=== PATIENT | male | born 1950 | race Caucasian/White ===

== ENCOUNTER → 2017-04-14 08:09 | Outpatient (CLI) | payer OTHER, SELFPAY ==
[2017-04-14 11:45] LABS: Anion Gap 8 (5-15); BUN 17 mg/dL (7-18); BUN/Creat Ratio 23.9 RATIO (10-20); Calcium,Total 8.8 mg/dL (8.5-10.1); Chloride 100 mmol/L (98-107); Creatinine, Serum 0.71 mg/dL (0.70-1.30); EST Glomerular Filtration Rate 118 mL/min (>60); Est Glom Filt Rate - Afr Amer 143 mL/min (>60); Glucose 97 mg/dL (70-110); Potassium 3.2 mmol/L (3.5-5.1); Sodium Level 137 mmol/L (136-145)
== END ==
PROVIDERS: Family Provider Family Medicine; PCP Family Medicine; Visit Provider Family Medicine
DX: I10 Essential (primary) hypertension (principal); Z12.5 Encounter for screening for malignant neoplasm of prostate
CPT/HCPCS: 36415; 80048; 84153; G0103

== ENCOUNTER → 2018-04-13 09:49 | Outpatient (CLI) | payer MEDICARE, SELFPAY ==
[2018-04-13 12:19] LABS: Anion Gap 9 (5-15); BUN 24 mg/dL (7-18); BUN/Creat Ratio 28.8 RATIO (10-20); Calcium,Total 9.1 mg/dL (8.5-10.1); Chloride 102 mmol/L (98-107); Creatinine, Serum 0.83 mg/dL (0.70-1.30); EST Glomerular Filtration Rate 98 mL/min (>60); Est Glom Filt Rate - Afr Amer 118 mL/min (>60); Glucose 97 mg/dL (74-106); Potassium 3.3 mmol/L (3.5-5.1); Sodium Level 138 mmol/L (136-145)
== END ==
PROVIDERS: Family Provider Family Medicine; PCP Family Medicine; Visit Provider Family Medicine
DX: I10 Essential (primary) hypertension (principal)
CPT/HCPCS: 36415; 80048

== ENCOUNTER 2018-12-14 08:33 | Emergency (ER) | payer MEDICARE, SELFPAY ==
[2018-12-14 08:35] VITALS: BP 167/101; PULSE 101; RESP 16; TEMP 36.3; O2SAT 95; BMI 32.5
--- NOTE | 2018-12-14 08:45 | CT_ITS ---
STUDY: CT ABDOMEN AND PELVIS WITHOUT CONTRAST REASON FOR EXAM: Male, 68 years old. Left flank and left lower quadrant pain. History of kidney stones. RADIATION DOSAGE (If Supplied By Facility): CTDIvol = ( 14.51 ) mGy, DLP = ( 779.68 ) mGycm TECHNIQUE: Transaxial images were obtained from the dome of the diaphragm to the symphysis pubis without oral contrast, and without intravenous contrast. Sagittal and coronal images were reconstructed. Individualized dose optimization techniques were used for this CT. COMPARISON: None. FINDINGS: Minimal increased markings at the left lung base suggestive of scarring. The visualized portions of the heart are within normal limits. There is decreased attenuation of the liver consistent with steatosis. Normal gallbladder and extrahepatic biliary system. There are multiple benign calcified granulomata of the spleen. Normal pancreas. Normal bilateral adrenal glands. Bilateral perinephric stranding worse on the left side. There is a 3 mm nonobstructive catheter is in the posterior mid aspect of the right kidney. This also demonstrated 3 mm calculus in the mid lower and lower pole calyces of the right kidney. This also evidence of a 2.2 cm x 1.9 cm cyst in the lower pole of the right kidney. Mild degree of left hydronephrosis and proximal left hydroureter due to a 4.5 mm calculus in the midportion of the left ureter. Normal visualized stomach. Normal small intestine. There are multiple colonic diverticula consistent with diverticulosis. The appendix is visualized and appears normal. Normal abdominal aorta. Normal inferior vena cava. Normal retroperitoneum. Normal urinary bladder. There are prostatic calcifications. Prostatic enlargement causing indentation at the bladder base. Normal abdominal wall. There are degenerative changes of the visualized lumbar spine. CT/Abdomen/Pelvis without Cont IMPRESSION: Bilateral perinephric stranding more prominent on the left side. Nonobstructive bilateral intrarenal calculi. Small bilateral renal cysts. 4.5 mm calculus in the midportion of the left ureter causing left hydronephrosis and left hydroureter. Electronically Signed: Shahzad Pavon, at 9:37 EDT , Service support ,
--- NOTE | 2018-12-14 08:48 | ED.DCSUM_ITS ---
- ER Visit Summary Date of Service: 12/14/18 Chief Complaint: Abdominal pain History of Present Illness: The patient is a 68 M who states that 3:00 this morning he was awoken and had pain left side of his abdomen into the left flank. He states it asked like a kidney stone which she has had before and that it pain comes and goes. It makes him nauseous. He states he did not urinate as much as normal today. He states that he has had diverticulitis in the past but this feels different but he does not know if this could be that. He denies any fevers. Physical Examination: Afebrile vital signs are stable Gen: Well-nourished well-developed Head: Normocephalic atraumatic Eyes: Perrl EOMI ENT: TMs clear no rhinorrhea moist mucous membranes Neck: Supple no lymphadenopathy no JVD nontender CVS: Regular rate rhythm no murmurs normal S1-S2 Respiratory: No distress clear to auscultation bilaterally chest nontender Abdomen: Soft normal tenderness to palpation left middle quadrant nondistended normal bowel sounds no masses Back: Nontender Extremity: Nontender no edema Skin: Normal color no rash Neuro: alert orientated ?3 CN II-XII intact normal strength sensation Psych: Normal affect normal mood Emergency Department Course and Treatment: White count is 11. Creatinine 1.22. Urinalysis shows a small amount of blood. CT of the abdomen pelvis without contrast demonstrates a 5 mm stone proximal to mid ureter. There is associated hydronephroureter. Patient received Toradol for pain he feels better. I spoke with Dr. Mayes who has seen the patient in the past. He is able to see the patient in the office tomorrow. I will write for Zofran and [place]. Patient is comfortable with our plan. Impression: 1. Left ureterolithiasis with colic This note was generated with [employer] dictation software. It may contain incorrect words, spelling, and punctuation that were not noted in review of the chart prior to signing ED Disposition - Plan for ED Patient: Disposition: Home or Assisted Living Instructions: KIDNEY STONE w/ Colic Prescriptions: Hydrocodone Bitart/Apap 5-325 [[place] 5MG-325MG] 1 tab PO Q6H PRN PRN 3 Days #12 tab PRN Reason: Pain Prescription Printed Ondansetron [Zofran Odt] 4 mg PO Q6H PRN PRN #10 tab PRN Reason: Nausea Prescription Printed Referrals: Dwayne Mayes MD [STAFF PHYSICIAN] - As soon as possible
[2018-12-14] MEDS: Ketorolac 30 MG/ML Syringe IV (09:07)
[2018-12-14 09:14] LABS: Absolute Neutrophil Count 10.5 X10^3/uL (2.0-7.7); Basophil# 0.07 X10^3/uL; Basophil% 0.5 % (0-1); Eosinophil# 0.17 X10^3/uL; Eosinophils% 1.3 % (0-5); Hematocrit 43.2 % (40-54); Lymphocyte % 7.8 % (19-41); Mean Corp Hgb Conc 34.7 g/dL (32-36); Mean Corpuscular Hgb 31.9 pg (27.0-32.0); Mean Corpuscular Volume 91.9 fL (80-94); Monocyte# 1.05 X10^3/uL; Monocyte% 8.2 % (0-10); NRBC Flagged by Analyzer 0 % (0-5); Neutrophil # 10.47 X10^3/uL (2.7-7.7); Neutrophil % 81.7 % (47-70); Platelet Count 251 K/mm3 (150-450); RBC Distribution Width CV 12.3 % (11.6-14.6); RBC Distribution Width SD 41.4 fl (35.1-43.9); White Blood Count 12.8 K/mm3 (4.4-11.0)
[2018-12-14 09:21] LABS: Anion Gap 9 (5-15); BUN 21 mg/dL (7-18); BUN/Creat Ratio 17.2 RATIO (10-20); Chloride 104 mmol/L (98-107); Creatinine, Serum 1.22 mg/dL (0.70-1.30); EST Glomerular Filtration Rate 63 mL/min (>60); Est Glom Filt Rate - Afr Amer 76 mL/min (>60); Estimated Creatinine Clearance 54.93 ml/min; Glucose 106 mg/dL (74-106); Sodium Level 140 mmol/L (136-145)
[2018-12-14 09:46] LABS: Bacteria 0 SEEN /hpf (None Seen); Mucous, Urine 0 SEEN /hpf (<or=2+); White Blood Cells 0 SEEN /hpf (0-5)
[2018-12-14 09:51] LABS: Color, Urine Yellow (Yellow); Glucose, Dipstick Normal (Normal); Ketone-Dipstick Negative (Negative); Leukocyte Esterase-Dipstick Negative /ul (Negative); Nitrite-Dipstick Negative (Negative); Occult Blood-Urine 250 /ul (Negative); Protein-Dipstick Negative (Negative); Specific Gravity, Urine 1.015 (1.002-1.030); Urine Bilirubin Dipstick Negative (Negative); Urine Clarity Sl. Cloudy (Clear); Urine Urobilinogen Normal (Normal)
[2018-12-14 10:01] LABS: Red Blood Cells-Urine 5-10 SEEN /hpf (0-5); Squamous Epithelial Cells - UA 0-5 SEEN /hpf (0-5)
[2018-12-14 10:53] VITALS: BP 135/74; PULSE 87; RESP 16; O2SAT 100
== END 2018-12-14 10:54 | disposition home or self-care (01) ==
PROVIDERS: Emergency Provider Emergency Medicine; Family Provider Family Medicine; PCP Family Medicine
DX: N20.1 Calculus of ureter (principal); Z87.442 Personal history of urinary calculi; J45.909 Unspecified asthma, uncomplicated; I10 Essential (primary) hypertension
CPT/HCPCS: 74176; 80048; 81001; 85025; 96374; 99283; A4216

== ENCOUNTER → 2018-12-15 | Outpatient (CLI) | payer MEDICARE, SELFPAY ==
[2018-12-14 08:35] VITALS: BMI 32.5
--- NOTE | 2018-12-15 08:43 | RAD_ITS ---
STUDY: X-RAY - ABDOMEN/PELVIS REASON FOR EXAM: Male, 68 years old. LEFT SIDE PAIN, KIDNEY STONES; H/O SAME TECHNIQUE: Two AP supine views of the abdomen and pelvis. COMPARISON: CT abdomen and pelvis December 14, 2018 FINDINGS: The lung bases are not visualized. There is an unremarkable bowel gas pattern. There is no demonstrated free abdominal air. The visualized liver, spleen and kidneys are grossly normal in. Punctate nephrolithiasis appears present on the right. The known punctate stones on the left are not well seen on this exam. The previously seen mid left ureteral stone I believe has progressed distally with a small stone identified on this exam at the level of the ureterovesical junction measuring approximately 4 mm. Normal soft tissue structures. There are mild diffuse degenerative changes of the visualized lumbar spine. RAD/Abdomen Single View IMPRESSION: It appears that a previously seen mid left ureteral stone has transited more inferiorly and is visualized in the region of the left ureterovesical junction. Nephrolithiasis persists. Electronically Signed: Brandi Hughes MD at 9:48 EDT , Service support ,
== END | disposition home or self-care (01) ==
LOC: RAD 08:37
PROVIDERS: Family Provider Family Medicine; PCP Family Medicine; Referring Provider Urology; Visit Provider Urology
DX: N20.0 Calculus of kidney (principal)
CPT/HCPCS: 74018

== ENCOUNTER 2018-12-23 09:28 | Day surgery (SDC) | payer MEDICARE, SELFPAY ==
--- NOTE | 2018-12-23 09:40 | RAD_ITS ---
STUDY: X-RAY - ABDOMEN/PELVIS REASON FOR EXAM: Male, 68 years old. Follow-up left renal stone TECHNIQUE: KUB COMPARISON: None. FINDINGS: There is an unremarkable bowel gas pattern. There is no demonstrated free abdominal air. Nonobstructing calyceal calculi are again seen in the right kidney. Along the distal left ureter no ureteral calculi are currently identified. There are phleboliths again seen in both sides of the pelvis. Normal soft tissue structures. Normal visualized osseous structures. RAD/Abdomen Single View IMPRESSION: 1. The previously noted left ureteral calculus is no longer identified. 2. Nonobstructive right nephrocalcinosis Electronically Signed: Davis Shi, at 12:36 EDT Tel , Service support ,
[2018-12-23 10:07] VITALS: BP 148/77; PULSE 70; RESP 15; TEMP 36.5; O2SAT 99; BMI 30.3
[2018-12-23] MEDS: Lactated Ringers 1,000 ML 100 ML IV (10:18)
== END 2018-12-23 11:29 | disposition home or self-care (01) ==
LOC: SDC 09:36 → AC 09:37
PROVIDERS: Family Provider Family Medicine; PCP Family Medicine; Referring Provider Urology; Visit Provider Urology
PROC: (CPT 50590; principal; 2018-12-23 10:15)
DX: N20.0 Calculus of kidney (principal)
CPT/HCPCS: 74018; J7120; J2405

== ENCOUNTER → 2019-04-12 10:50 | Outpatient (CLI) | payer MEDICARE, SELFPAY ==
[2019-04-12 12:45] LABS: AST(SGOT) 24 U/L (15-37); Alanine Aminotransfer ALT/SGPT 27 U/L (16-61); Albumin, Serum 3.9 g/dL (3.2-5.0); Alkaline Phosphatase 62 U/L (45-117); Anion Gap 6 (5-15); BUN 22 mg/dL (7-18); BUN/Creat Ratio 27.2 RATIO (10-20); Calcium,Total 9.3 mg/dL (8.5-10.1); Chloride 104 mmol/L (98-107); Cholesterol 224 mg/dL (200); Creatinine, Serum 0.81 mg/dL (0.70-1.30); EST Glomerular Filtration Rate 101 mL/min (>60); Est Glom Filt Rate - Afr Amer 122 mL/min (>60); Globulin 3.9 g/dL (2.2-4.2); Glucose 98 mg/dL (74-106); High Density Lipoprotein 52 mg/dL; Potassium 3.2 mmol/L (3.5-5.1); Protein, Total 7.8 g/dL (6.4-8.2); Sodium Level 138 mmol/L (136-145); Triglycerides 127 mg/dL; Very Low Density Lipoprotein 25 mg/dL (5-40)
== END ==
LOC: MFPLAB 10:51
PROVIDERS: PCP Family Medicine; Referring Provider Family Medicine; Visit Provider Family Medicine
DX: I10 Essential (primary) hypertension (principal); E78.5 Hyperlipidemia, unspecified; Z12.5 Encounter for screening for malignant neoplasm of prostate
CPT/HCPCS: 36415; 80053; 80061; 84153; G0103

== ENCOUNTER → 2019-10-12 09:08 | Outpatient (CLI) | payer MEDICARE, SELFPAY ==
[2019-10-12 10:10] LABS: AST(SGOT) 24 U/L (15-37); Alanine Aminotransfer ALT/SGPT 21 U/L (16-61); Albumin, Serum 3.8 g/dL (3.2-5.0); Alkaline Phosphatase 68 U/L (45-117); Anion Gap 4 (5-15); BUN 21 mg/dL (7-18); BUN/Creat Ratio 26.9 RATIO (10-20); Calcium,Total 8.8 mg/dL (8.5-10.1); Chloride 105 mmol/L (98-107); Cholesterol 142 mg/dL (200); Creatinine, Serum 0.78 mg/dL (0.70-1.30); EST Glomerular Filtration Rate 105 mL/min (>60); Est Glom Filt Rate - Afr Amer 127 mL/min (>60); Globulin 3.8 g/dL (2.2-4.2); Glucose 99 mg/dL (74-106); High Density Lipoprotein 58 mg/dL; Potassium 3.2 mmol/L (3.5-5.1); Protein, Total 7.6 g/dL (6.4-8.2); Sodium Level 137 mmol/L (136-145); Triglycerides 83 mg/dL; Very Low Density Lipoprotein 17 mg/dL (5-40)
== END ==
PROVIDERS: PCP Family Medicine; Referring Provider Family Medicine; Visit Provider Family Medicine
DX: E78.5 Hyperlipidemia, unspecified (principal)
CPT/HCPCS: 36415; 80053; 80061

== ENCOUNTER → 2020-05-09 08:50 | Outpatient (CLI) | payer MEDICARE, SELFPAY ==
[2020-05-09 10:36] LABS: ALB/GLOB Ratio 1.1 RATIO (0.9-2.4); AST(SGOT) 29 U/L (15-37); Alanine Aminotransfer ALT/SGPT 25 U/L (16-61); Albumin, Serum 3.8 g/dL (3.2-5.0); Alkaline Phosphatase 85 U/L (45-117); Anion Gap 7 (5-15); BUN 24 mg/dL (7-18); BUN/Creat Ratio 30.4 RATIO (10-20); Calcium,Total 8.9 mg/dL (8.5-10.1); Chloride 104 mmol/L (98-107); Cholesterol 155 mg/dL (200); Creatinine, Serum 0.79 mg/dL (0.70-1.30); EST Glomerular Filtration Rate 103 mL/min (>60); Est Glom Filt Rate - Afr Amer 125 mL/min (>60); Globulin 3.6 g/dL (2.2-4.2); Glucose 100 mg/dL (74-106); High Density Lipoprotein 67 mg/dL; Potassium 3.3 mmol/L (3.5-5.1); Protein, Total 7.4 g/dL (6.4-8.2); Sodium Level 140 mmol/L (136-145); Triglycerides 62 mg/dL; Very Low Density Lipoprotein 12 mg/dL (5-40)
== END ==
PROVIDERS: PCP Family Medicine; Referring Provider Family Medicine; Visit Provider Family Medicine
DX: I10 Essential (primary) hypertension (principal)
CPT/HCPCS: 36415; 80053; 80061

== ENCOUNTER 2021-01-21 12:59 | Emergency (ER) | payer MEDICARE, SELFPAY ==
[2021-01-21 12:59] VITALS: BP 195/89; PULSE 95; RESP 16; TEMP 37.2; O2SAT 98; BMI 30.4
--- NOTE | 2021-01-21 13:11 | EDS_ITS ---
HPI History of Present Illness Chief Complaint: Complaint Informant: patient Onset/Context/Timing Onset: Days Current Severity: Moderate Maximum Severity: Moderate Narrative Narrative: Patient presents with urinary frequency and dysuria. Patient reports for the past 2 days he feels he has to urinate every 2 minutes. He goes just a small amount. He denies fever or chills. He states he has some mild right low back pain but attributes that to back problems. [facility] Medical History Hypertension Kidney stone Home Medications atorvastatin 40 mg PO DAILY 01/21/21 [History Last Taken Unknown] chlorthalidone 25 mg PO DAILY 01/21/21 [History Last Taken Unknown] ciprofloxacin HCl [Cipro] 500 mg PO BID #14 tab 01/21/21 [Rx Last Taken Unknown] Allergy/AdvReac Type Severity Reaction Status Date / Time Penicillins [PCN] Allergy Unknown Verified 01/21/21 13:03 Social History Smoking Status: Never smoker ROS ROS ED Constitutional Constitutional ED: Denies chills or fever(s) Eyes Eyes: Denies change in vision ENT ENT ED: Denies sore throat Cardiovascular Cardiovascular: Denies chest pain Respiratory/Chest Respiratory/Chest: Denies cough or dyspnea Gastrointestinal Gastrointestinal: Denies abdominal pain, diarrhea, nausea or vomiting Genitourinary Genitourinary ED: Reports dysuria and urinary frequency Musculoskeletal Musculoskeletal: Reports back pain Integumentary Denies rash Neurologic Neurologic: Denies headache(s) or weakness Allergic/Immunologic Allergic/Immunologic ED: Denies urticaria EXAM Physical Exam Const Vital Signs: 01/21/21 12:59 Temperature 99 F Temperature Source Temporal Pulse Rate 95 Respiratory Rate 16 Blood Pressure 195/89 H Blood Pressure Mean 124 Pulse Ox 98 Oxygen Delivery Method Room Air Positive well nourished and well developed General Appearance ED: well developed HEENT Reports normocephalic and head/scalp atraumatic Eyes PERRL and EOMs intact bilaterally Neck supple Chest Wall inspection of chest normal and palpation of chest normal Resp normal respiratory effort and clear to auscultation bilaterally Cardio regular rate and regular rhythm GI normal to inspection, nondistended, normoactive bowel sounds and non-tender Palpation: soft Back/Spine no CVA tenderness Extremity normal to inspection Neuro oriented x3 and no sensory deficits noted Sensorium / Orientation: alert Motor Exam: strength 5/5 throughout Psych mental status grossly normal Skin no rashes or lesions noted MDM MDM MDM Narrative Medical decision making narrative: Urinalysis sent. Lab Data Labs: Laboratory Results - last 24 hr 01/21/21 13:20 Urine Color Yellow Urine Clarity Cloudy Urine pH 6.0 Ur Specific [place] 1.015 Urine Protein 100 H Urine Glucose (UA) 50 H Urine Ketones Negative Urine Occult Blood 250 H Urine Nitrite Positive H Urine Bilirubin Negative Urine Urobilinogen 1 H Ur Leukocyte Esterase 500 H Urine RBC 5-10 SEEN Urine WBC >100 SEEN Ur Squamous Epith Cells 0 SEEN Urine Bacteria 2+ Urine Mucus 0 SEEN Treatment and Re-Evaluation Comments:: I did asked nursing staff to get a post void bladder scan to ensure patient was not retaining. Only 20 cc or so was noted on bladder scan. Urine does return with obvious infection. Patient be treated with a course of Cipro, first dose given here. Urine culture has been sent. Discharge Plan Triage Chief Complaint: Complaint ED Provider: Georgina Hatch Dx/Rx/DC Orders Clinical Impression: UTI (urinary tract infection) Instructions: ED Bladder Infection, Male (Adult) Prescriptions: New ciprofloxacin HCl [Cipro] 500 mg tablet 500 mg PO BID Qty: 14 RF: 0 No Action atorvastatin 40 mg tablet 40 mg PO DAILY RF: 0 chlorthalidone 25 mg tablet 25 mg PO DAILY RF: 0 Primary Care Provider: Davis Armstrong Referrals: Davis Armstrong MD [Primary Care Provider] - 1 Week if not improving Disposition Disposition: Home, Self Care
[2021-01-21 13:28] LABS: Mucous, Urine 0 SEEN /hpf (<or=2+); Squamous Epithelial Cells - UA 0 SEEN /hpf (0-5)
[2021-01-21 13:34] LABS: Color, Urine Yellow (Yellow); Glucose, Dipstick 50 mg/dl (Normal); Ketone-Dipstick Negative (Negative); Leukocyte Esterase-Dipstick 500 /ul (Negative); Nitrite-Dipstick Positive (Negative); Occult Blood-Urine 250 /ul (Negative); Protein-Dipstick 100 mg/dl (Negative); Specific Gravity, Urine 1.015 (1.002-1.030); Urine Bilirubin Dipstick Negative (Negative); Urine Clarity Cloudy (Clear); Urine Urobilinogen 1 mg/dl (Normal)
[2021-01-21 13:44] LABS: Bacteria 2+ /hpf (None Seen); Red Blood Cells-Urine 5-10 SEEN /hpf (0-5); White Blood Cells >100 SEEN /hpf (0-5)
[2021-01-21] MEDS: Ciprofloxacin 500 MG Tablet PO (13:57)
== END 2021-01-21 13:59 | disposition home or self-care (01) ==
PROVIDERS: Emergency Provider Emergency Medicine; PCP Family Medicine
DX: N39.0 Urinary tract infection, site not specified (principal); I10 Essential (primary) hypertension; Z79.899 Other long term (current) drug therapy
CPT/HCPCS: 81001; 87077; 87086; 87088; 87186; 99283

== ENCOUNTER 2021-05-09 09:02 | Outpatient (CLI) | payer MEDICARE, SELFPAY ==
[2021-05-09 09:09] LABS: Bacteria 0 SEEN /hpf (None Seen); Mucous, Urine 0 SEEN /hpf (<or=2+); Red Blood Cells-Urine 0 SEEN /hpf (0-5); Squamous Epithelial Cells - UA 0 SEEN /hpf (0-5)
[2021-05-09 10:21] LABS: Color, Urine Yellow (Yellow); Glucose, Dipstick Normal (Normal); Ketone-Dipstick Negative (Negative); Leukocyte Esterase-Dipstick Negative /ul (Negative); Nitrite-Dipstick Negative (Negative); Occult Blood-Urine Negative /ul (Negative); Protein-Dipstick Negative (Negative); Specific Gravity, Urine 1.015 (1.002-1.030); Urine Bilirubin Dipstick Negative (Negative); Urine Clarity Clear (Clear); Urine Urobilinogen Normal (Normal)
[2021-05-09 10:22] LABS: Absolute Lymphocyte Count 0.91 X10^3/uL (0.83-4.51); Absolute Neutrophil Count 3.6 X10^3/uL (2.0-7.7); Basophil# 0.05 X10^3/uL; Eosinophil# 0.13 X10^3/uL; Eosinophils% 2.5 % (0-5); Hematocrit 43.2 % (40-54); Hemoglobin 15.2 g/dL (13.0-16.5); Lymphocyte # 0.91 X10^3/ul (0.83-4.51); Lymphocyte % 17.5 % (19-41); Mean Corp Hgb Conc 35.2 g/dL (32-36); Mean Corpuscular Hgb 32.1 pg (27.0-32.0); Mean Corpuscular Volume 91.3 fL (80-94); Mean Platelet Vol. 10.6 fl (6.2-12.0); Monocyte# 0.46 X10^3/uL; Monocyte% 8.8 % (0-10); NRBC Flagged by Analyzer 0 % (0-5); Neutrophil # 3.63 X10^3/uL (2.7-7.7); Neutrophil % 69.8 % (47-70); Platelet Count 275 K/mm3 (150-450); RBC Distribution Width CV 12.6 % (11.6-14.6); RBC Distribution Width SD 42.5 fl (35.1-43.9); Red Blood Count 4.73 M/mm3 (4.6-6.2); White Blood Count 5.2 K/mm3 (4.4-11.0)
[2021-05-09 10:33] LABS: White Blood Cells 0-5 SEEN /hpf (0-5)
[2021-05-09 11:03] LABS: AST(SGOT) 29 U/L (15-37); Alanine Aminotransfer ALT/SGPT 25 U/L (16-61); Albumin, Serum 3.8 g/dL (3.2-5.0); Alkaline Phosphatase 92 U/L (45-117); Anion Gap 6 (5-15); BUN 21 mg/dL (7-18); BUN/Creat Ratio 32.6 RATIO (10-20); CPK Total, Creatine Kinase 274 U/L (39-308); Calcium,Total 8.8 mg/dL (8.5-10.1); Chloride 103 mmol/L (98-107); Cholesterol 142 mg/dL (200); Creatinine, Serum 0.64 mg/dL (0.70-1.30); EST Glomerular Filtration Rate 130 mL/min (>60); Est Glom Filt Rate - Afr Amer 157 mL/min (>60); Ferritin 356 ng/mL (26-388); Globulin 3.8 g/dL (2.2-4.2); Glucose 105 mg/dL (74-106); High Density Lipoprotein 57 mg/dL; Magnesium 2.1 mg/dL (1.6-2.6); Potassium 3.1 mmol/L (3.5-5.1); Protein, Total 7.6 g/dL (6.4-8.2); Sodium Level 136 mmol/L (136-145); Thyroid Stim Hormone (TSH) 2.39 uIU/mL (0.358-3.74); Triglycerides 72 mg/dL; Very Low Density Lipoprotein 14 mg/dL (5-40)
[2021-05-10 16:07] LABS: Hemoglobin A1c 6.1 % (3.8-5.6)
== END 2021-05-09 23:59 | disposition home or self-care (01) ==
LOC: MFPLAB 09:05
PROVIDERS: PCP Family Medicine; Referring Provider Family Medicine; Visit Provider Family Medicine
DX: I10 Essential (primary) hypertension (principal); R73.09 Other abnormal glucose; E78.5 Hyperlipidemia, unspecified; E87.6 Hypokalemia; R25.2 Cramp and spasm
CPT/HCPCS: 36415; 80053; 80061; 81001; 82550; 82728; 83036; 83735; 84443; 85025

== ENCOUNTER 2021-05-14 09:40 | Outpatient (CLI) | payer MEDICARE, SELFPAY ==
[2021-05-14 12:36] LABS: Anion Gap 10 (5-15); BUN 22 mg/dL (7-18); BUN/Creat Ratio 28.5 RATIO (10-20); Calcium,Total 9.5 mg/dL (8.5-10.1); Chloride 101 mmol/L (98-107); Creatinine, Serum 0.77 mg/dL (0.70-1.30); EST Glomerular Filtration Rate 106 mL/min (>60); Est Glom Filt Rate - Afr Amer 128 mL/min (>60); Glucose 108 mg/dL (74-106); Potassium 3.4 mmol/L (3.5-5.1); Sodium Level 138 mmol/L (136-145)
== END 2021-05-14 23:59 | disposition home or self-care (01) ==
LOC: MFPLAB 09:43
PROVIDERS: PCP Family Medicine; Referring Provider Family Medicine; Visit Provider Family Medicine
DX: E87.6 Hypokalemia (principal)
CPT/HCPCS: 36415; 80048

== ENCOUNTER 2021-05-23 08:41 | Outpatient (CLI) | payer MEDICARE, SELFPAY ==
[2021-05-23 10:15] LABS: Anion Gap 3 (5-15); BUN 24 mg/dL (7-18); BUN/Creat Ratio 33.6 RATIO (10-20); Calcium,Total 8.9 mg/dL (8.5-10.1); Chloride 105 mmol/L (98-107); Creatinine, Serum 0.71 mg/dL (0.70-1.30); EST Glomerular Filtration Rate 116 mL/min (>60); Est Glom Filt Rate - Afr Amer 140 mL/min (>60); Glucose 94 mg/dL (74-106); Potassium 4.5 mmol/L (3.5-5.1); Sodium Level 137 mmol/L (136-145)
== END 2021-05-23 23:59 | disposition home or self-care (01) ==
LOC: MFPLAB 08:43
PROVIDERS: PCP Family Medicine; Referring Provider Family Medicine; Visit Provider Family Medicine
DX: E87.6 Hypokalemia (principal)
CPT/HCPCS: 36415; 80048

== ENCOUNTER 2021-08-25 07:27 | Emergency (ER) | payer MEDICARE, SELFPAY ==
[2021-08-25 07:28] VITALS: BP 176/93; PULSE 73; RESP 14; TEMP 36.7; O2SAT 99; BMI 29.7
--- NOTE | 2021-08-25 07:36 | RAD_ITS ---
STUDY: X-RAY - LEFT HAND, ATTENTION INDEX FINGER REASON FOR EXAM: Male, 71 years old. LACERATION SIDE OF FINGER SMASHED BETWEEN WOOD TECHNIQUE: 3 view(s) of the finger were obtained. COMPARISON: None. FINDINGS: Mild soft tissue swelling around the second digit and management material around the distal phalanges. No obvious subcutaneous gas seen on this study. No visualized acute fractures or displaced bony fragments. Normal metacarpal head. Normal metacarpophalangeal joint. Normal proximal phalanx. Normal middle phalanx. Normal distal phalanx. Normal proximal interphalangeal joint. Normal distal interphalangeal joint. RAD/Finger(s) Min 2 Views IMPRESSION: 1. Mild soft tissue swelling around the second digit and management material around the distal phalanges. No obvious subcutaneous gas seen on this study. No visualized acute fractures or displaced bony fragments. Electronically Signed: Ronen Carrillo MD at 8:26 EDT ,
--- NOTE | 2021-08-25 07:37 | EDS_ITS ---
HPI History of Present Illness Chief Complaint: Laceration Detail of Chief Complaint: Injury to left index finger Informant: patient Narrative Narrative: Patient sustained an injury to his left index finger when he got it crushed between 2 pieces of lumber yesterday. Patient sustained a laceration. Patient states he removed a small splinter from it. Patient states that it will not stop bleeding. Patient is not on any blood thinners. Patient unsure of his last tetanus. Patient is right-hand dominant. Tetanus Immunization: 5-10 years [facility] Medical History Hypertension Kidney stone Home Medications atorvastatin 40 mg PO DAILY 01/21/21 [History Last Taken Unknown] chlorthalidone 25 mg PO DAILY 01/21/21 [History Last Taken Unknown] ciprofloxacin HCl [Cipro] 500 mg PO BID #14 tab 01/21/21 [Rx Last Taken Unknown] cephalexin 500 mg PO Q6 #40 capsule 08/25/21 [Rx Last Taken Unknown] Allergy/AdvReac Type Severity Reaction Status Date / Time Penicillins [PCN] Allergy Unknown Verified 08/25/21 07:29 Social History Smoking Status: Never smoker ROS ROS ED Constitutional Constitutional ED: Reports systems reviewed and no addt'l complaints, except as documented; Denies body ache(s), change in weight or chills Eyes Eyes: Denies acute decrease in peripheral vision, change in vision, double vision or loss of vision ENT ENT ED: Reports none; Denies ear pain, lip swelling, loss taste/smell, neck pain, otalgia or sore throat Cardiovascular Cardiovascular: Reports none; Denies abdominal pain, chest pain with activity, leg edema, lightheadedness, palpitations, rapid heart rate or syncope Respiratory/Chest Respiratory/Chest: Reports none; Denies change in mental status, dry cough, dyspnea, hemoptysis, shortness of breath at rest or shortness of breath with exertion Gastrointestinal Gastrointestinal: Reports none; Denies abdominal pain, change in stool character, diarrhea, hematemesis, hematochezia, melena, rectal bleeding or vomiting Genitourinary Genitourinary ED: Reports none; Denies abdominal discomfort, anuria, dysuria, genital pain or polyuria Musculoskeletal Musculoskeletal: Reports none and other Details: Laceration/injury left index finger ; Denies arthralgias, back pain, difficulty walking, extremity pain, muscle weakness or myalgias Integumentary Reports none; Denies abscess or rash Neurologic Neurologic: Reports none; Denies abnormal gait, confusion, focal weakness, frequent falls, headache(s), loss of vision, numbness, paresthesias, radicular pain, vertigo or weakness Psychiatric Psychiatric: Reports systems reviewed and no addt'l complaints, except as documented and none; Denies behavioral changes, confusion, difficulty concentrating, hallucinations, suicidal ideation, tactile hallucinations or visual hallucinations Endocrine Endocrinology: Denies none, cold intolerance, excessive sweating, fatigue or heat intolerance Hematologic/Lymphatic Hematologic/Lymphatic: Reports none; Denies anemia, easy bleeding or easy bruising Allergic/Immunologic Allergic/Immunologic ED: Denies as per HPI, none, lip swelling, mouth swelling, throat swelling, tongue swelling or hives EXAM Physical Exam Const Vital Signs: 08/25/21 07:28 Temperature 98.1 F Temperature Source Temporal Pulse Rate 73 Respiratory Rate 14 Blood Pressure 176/93 H Blood Pressure Mean 120 Pulse Ox 99 Oxygen Delivery Method Room Air Positive well nourished and well developed General Appearance ED: well developed and NAD HEENT Reports TM's clear and moist mucous membranes normocephalic and atraumatic; Negative for trauma or tenderness Tympanic Membrane ED: Yes TM's clear Eyes PERRL and EOMs intact bilaterally General Eye ED: Negative for pale conjunctiva or scleral icterus Neck no lymphadenopathy, supple and no JVD General: Negative for tenderness Chest Wall inspection of chest normal and palpation of chest normal Chest: Negative for tenderness Resp normal respiratory effort and clear to auscultation bilaterally Effort and Inspection: Negative for respiratory distress or pain with movement Auscultation: Negative for rhonchi, wheezes or diminished lung sounds Cardio regular rate, regular rhythm, S1 normal heart sound, S2 normal heart sound and no murmurs Peripheral Pulses: pulses 2+ throughout GI normal to inspection, nondistended, normoactive bowel sounds, soft to palpation, non-tender, non-distended and no masses Back/Spine no CVA tenderness and no thoracic nor lumbar tenderness Extremity Extremity Narrative: Evaluation of the left index finger reveals no obvious def ormity. He does have a 2.5 cm flap-like laceration over the volar aspect of the middle phalanx with active oozing of blood from the wound. He is neurovascular intact distally. General Extremety ED: Negative for edema General Extremity: Negative for edema Neuro oriented x3, CN's II-XII intact bilaterally, no sensory deficits noted and gait normal Sensorium / Orientation: awake, alert, oriented to person, oriented to place and oriented to time Motor Exam: strength 5/5 throughout and strength abnormal Psych mental status grossly normal Skin no rashes or lesions noted and no wounds MDM MDM MDM Narrative Medical decision making narrative: X-rays of the finger were obtained interpreted by myself as no acute fractures or foreign bodies noted. Discussed with patient performing a digital block and evaluating the wound for foreign body such as more wood in the wound. Patient in agreement. Digital block was performed and sterile rubber band was used to obtain good hemostasis. Wound was cleansed with Shur-Clens and irrigated with copious saline. I evaluated the wound and I do not appreciate any foreign bodies within the wound. Because of the ongoing bleeding and the fact that the wound is somewhat gaping I did place 3 single interrupted sutures loosely to approximate the wound edges and help with hemostasis. I will cover him with Keflex. Patient to have the sutures removed in 10 days. Patient advised to return if increasing pain, redness, swelling, purulent drainage, or condition worsen anyway. Patient was given a tetanus booster. Radiography Diagnostic Testing: Three-view x-rays of left index finger obtained interpreted by myself as no acute fractures and no foreign bodies noted. Official report from radiology will be pending. Discharge Plan Triage Chief Complaint: Laceration ED Provider: Tayo Garner Dx/Rx/DC Orders Clinical Impression: Laceration of left index finger Instructions: ED Laceration, Hand: All Closures Prescriptions: New cephalexin [cephalexin] 500 MG capsule 500 mg PO Q6 Qty: 40 RF: 0 No Action atorvastatin 40 mg tablet 40 mg PO DAILY RF: 0 chlorthalidone 25 mg tablet 25 mg PO DAILY RF: 0 ciprofloxacin HCl [Cipro] 500 mg tablet 500 mg PO BID Qty: 14 RF: 0 Primary Care Provider: Davis Armstrong Referrals: Davis Armstrong MD [Primary Care Provider] - 10 Day for suture removal Disposition Disposition: Home, Self Care
[2021-08-25] MEDS: Lidocaine 1% (20 ml mdv) 20 ML Vial 8 ML INFILT (07:49)
[2021-08-25] MEDS: Diphth,Pertuss(Acell),Tet Vac 0.5 ML Vial IM (07:49)
[2021-08-25] MEDS: Cephalexin 250 MG Capsule 500 MG PO (08:28)
== END 2021-08-25 08:33 | disposition home or self-care (01) ==
PROVIDERS: Emergency Provider Emergency Medicine; PCP Family Medicine; Visit Provider Emergency Medicine
DX: S61.211A Laceration without foreign body of left index finger without damage to nail, initial encounter (principal); Z23 Encounter for immunization; W23.0XXA Caught, crushed, jammed, or pinched between moving objects, initial encounter
CPT/HCPCS: 12001; 73140; 90471; 90715; 99285

== ENCOUNTER → 2021-10-02 | Outpatient (CLI) | payer MEDICARE, SELFPAY ==
[2021-10-02 12:16] LABS: Absolute Lymphocyte Count 0.89 X10^3/uL (0.83-4.51); Absolute Neutrophil Count 3.3 X10^3/uL (2.0-7.7); Basophil# 0.06 X10^3/uL; Basophil% 1.2 % (0-1); Eosinophil# 0.13 X10^3/uL; Eosinophils% 2.7 % (0-5); Hematocrit 38.8 % (40-54); Hemoglobin 12.9 g/dL (13.0-16.5); Lymphocyte # 0.89 X10^3/ul (0.83-4.51); Lymphocyte % 18.5 % (19-41); Mean Corp Hgb Conc 33.2 g/dL (32-36); Mean Corpuscular Hgb 31.7 pg (27.0-32.0); Mean Corpuscular Volume 95.3 fL (80-94); Mean Platelet Vol. 10.8 fl (6.2-12.0); Monocyte# 0.45 X10^3/uL; Monocyte% 9.4 % (0-10); NRBC Flagged by Analyzer 0 % (0-5); Neutrophil # 3.27 X10^3/uL (2.7-7.7); Platelet Count 231 K/mm3 (150-450); RBC Distribution Width CV 12.5 % (11.6-14.6); RBC Distribution Width SD 43.9 fl (35.1-43.9); Red Blood Count 4.07 M/mm3 (4.6-6.2); White Blood Count 4.8 K/mm3 (4.4-11.0)
[2021-10-02 12:32] LABS: ALB/GLOB Ratio 1.1 RATIO (0.9-2.4); AST(SGOT) 29 U/L (15-37); Alanine Aminotransfer ALT/SGPT 21 U/L (16-61); Albumin, Serum 3.5 g/dL (3.2-5.0); Alkaline Phosphatase 68 U/L (45-117); Anion Gap 6 (5-15); BUN 22 mg/dL (7-18); BUN/Creat Ratio 31.4 RATIO (10-20); Calcium,Total 8.7 mg/dL (8.5-10.1); Chloride 107 mmol/L (98-107); Cholesterol 132 mg/dL (200); EST Glomerular Filtration Rate 118 mL/min (>60); Est Glom Filt Rate - Afr Amer 143 mL/min (>60); Globulin 3.1 g/dL (2.2-4.2); Glucose 95 mg/dL (74-106); High Density Lipoprotein 57 mg/dL; Potassium 3.7 mmol/L (3.5-5.1); Protein, Total 6.6 g/dL (6.4-8.2); Sodium Level 140 mmol/L (136-145); Triglycerides 54 mg/dL; Very Low Density Lipoprotein 11 mg/dL (5-40)
[2021-10-03 14:39] LABS: Ferritin 290 ng/mL (26-388); Iron 104 ug/dL (65-175); Iron Binding Capacity,Total 285 ug/dL (250-450); PERCENT IRON SATURATION 36.5 % (15.0-55.0)
[2021-10-03 14:40] LABS: Vitamin B12 449 pg/mL (211-911)
[2021-10-05 13:21] LABS: Transferrin 229 mg/dL (177-329)
== END | disposition home or self-care (01) ==
LOC: MFPLAB 10:08
PROVIDERS: PCP Family Medicine; Visit Provider Family Medicine
DX: I10 Essential (primary) hypertension (principal); D64.9 Anemia, unspecified; R73.02 Impaired glucose tolerance (oral)
CPT/HCPCS: 36415; 80053; 80061; 82607; 82728; 83036; 83540; 83550; 84466; 85025

== ENCOUNTER 2021-12-02 18:27 | Emergency (ER) | payer MEDICARE, SELFPAY ==
[2021-12-02 18:27] VITALS: BP 169/94; PULSE 74; RESP 16; TEMP 36.6; O2SAT 98; BMI 29.7
--- NOTE | 2021-12-02 19:12 | ED.VIS.GI ---
HPI HPI - GI History of Present Illness Chief Complaint: Flank Pain Informant: patient Abdominal Pain/Flank Pain Onset: Today Context: Sudden Onset Timing: Continuous Quality: Aching Location: RLQ Worsened by: Movement and - (Walking) Relieved by: Nothing Nausea/Vomiting/Emesis GI Symptom: Positive for Nausea; Negative for Vomiting Diarrhea/Melena/Hematochezia GI Symptom: Negative for Diarrhea, Melena or Hematochezia Associated Symptoms Associated Symptoms: Positive for Frequency; Negative for Dysuria or Hematuria Narrative Narrative: Patient presents with right lower abdominal pain that began today. Patient states it began this morning. Patient states it began rather suddenly. Patient states it has been constant all day. Patient states it is aching in his right lower abdomen. Patient states it is worse with walking and certain movements. Patient dates nothing seems to help with it. Patient admits to nausea but denies any vomiting. Patient denies any diarrhea, melena, or hematochezia. Patient does admit to some urinary frequency. Patient states the pain does radiate into his right lower back. PFSH PFS Medical History Hypertension Kidney stone Home Medications atorvastatin 40 mg tablet 40 mg PO DAILY 01/21/21 [History Last Taken Unknown] hydrocodone-acetaminophen 5-325mg 5mg-325mg 1 tab PO Q6H PRN PRN Pain 3 days #10 TABLETS 12/02/21 [Rx Last Taken Unknown] lisinopril 5 mg tablet 5 mg PO DAILY 12/02/21 [History Last Taken Unknown] Allergy/AdvReac Type Severity Reaction Status Date / Time No Known Allergies Allergy Verified 12/02/21 18:54 Social History Smoking Status: Never smoker ROS ROS ED Constitutional Constitutional ED: Denies chills or fever(s) Eyes Eyes: Denies blurry vision or change in vision ENT ENT ED: Denies rhinorrhea or sore throat Cardiovascular Cardiovascular: Denies chest pain or palpitations Respiratory/Chest Respiratory/Chest: Reports cough; Denies dyspnea Gastrointestinal Gastrointestinal: Reports abdominal pain and nausea; Denies diarrhea, melena or vomiting Genitourinary Genitourinary ED: Reports urinary frequency; Denies dysuria or hematuria Musculoskeletal Musculoskeletal: Reports back pain; Denies neck pain Integumentary Denies abscess or rash Neurologic Neurologic: Denies headache(s) or weakness Allergic/Immunologic Allergic/Immunologic ED: Denies mouth swelling or urticaria EXAM Physical Exam Const Vital Signs: 12/02/21 18:27 12/02/21 22:12 Temperature 97.9 F Temperature Source Temporal Pulse Rate 74 64 Respiratory Rate 16 18 Blood Pressure 169/94 H 146/82 H Blood Pressure Mean 119 103 Pulse Ox 98 100 Oxygen Delivery Method Room Air Room Air Positive well nourished and well developed General Appearance ED: well developed and NAD HEENT Reports moist mucous membranes Neck supple and no JVD Resp normal respiratory effort and clear to auscultation bilaterally Cardio regular rate, regular rhythm and no murmurs GI normal to inspection, nondistended, normoactive bowel sounds Palpation: soft and tender RLQ and RUQ; Negative for guarding or rebound tenderness present Extremity normal to inspection General Extremety ED: Negative for edema or tenderness General Extremity: Negative for edema Neuro oriented x3, CN's II-XII intact bilaterally and no sensory deficits noted Sensorium / Orientation: alert Motor Exam: strength 5/5 throughout Psych mental status grossly normal Skin no rashes or lesions noted MDM MDM MDM Narrative Medical decision making narrative: Patient was given IV fluids, morphine, and Zofran. CBC was within normal limits. Comprehensive metabolic profile showed a BUN of 28. Normal creatinine. Lipase was normal. Urinalysis does not show any evidence of urinary tract infection. Occult blood was 150 with 5-[address] scan of the abdomen and pelvis was obtained. There is a 6 mm calculus in the right proximal ureter. There is some hydronephrosis and stranding. This was interpreted by the radiologist and reviewed by myself. On reevaluation, patient states he has no pain. Patient states he has seen Dr. Mayes in the past. Patient was given a prescription for [place] to take as needed for pain. Patient wants to follow-up with Dr. Mayes. Patient was instructed to call his office tomorrow to schedule an appointment this week. Patient understands and is agreeable with the plan. All questions were answered. Lab Data Attestation: I reviewed the patient's lab results. Labs: Laboratory Results - last 24 hr 12/02/21 12/02/21 12/02/21 19:18 19:18 19:22 WBC 10.9 RBC 4.65 Hgb 14.4 Hct 43.8 MCV 94.2 H MCH 31.0 MCHC 32.9 RDW Std Deviation 44.7 H RDW Coeff of Kim 13.1 Plt Count 216 MPV 10.4 Immature Gran % (Auto) 0.300 Neut % (Auto) 83.8 H Lymph % (Auto) 5.8 L [place] % (Auto) 9.1 Eos % (Auto) 0.4 Baso % (Auto) 0.6 Absolute Neuts (auto) 9.1 H Absolute Lymphs (auto) 0.63 L Nucleated RBC % 0 Sodium 144 Potassium 3.7 Chloride 109 H Carbon Dioxide 27.0 Anion Gap 8 BUN 28 H Creatinine 1.26 Estim Creat Clear Calc 51.00 Est GFR (MDRD) Af Amer 73 Est GFR (MDRD) Non-Af 60 BUN/Creatinine Ratio 22.2 H Glucose 111 H Calcium 9.2 Total Bilirubin 1.00 AST 25 ALT 21 Alkaline Phosphatase 71 Total Protein 7.2 Albumin 3.8 Globulin 3.4 Albumin/Globulin Ratio 1.1 Lipase 112 Urine Color Yellow Urine Clarity Clear Urine pH 6.0 Ur Specific [place] 1.015 Urine Protein 15 H Urine Glucose (UA) Normal Urine Ketones Negative Urine Occult Blood 150 H Urine Nitrite Negative Urine Bilirubin Negative Urine Urobilinogen Normal Ur Leukocyte Esterase Negative Urine RBC 5-10 SEEN Urine WBC 0-5 SEEN Ur Squamous Epith Cells 0 SEEN Urine Bacteria RARE Urine Mucus 0 SEEN Radiography Diagnostic Testing: Clinical Impression(s) from Imaging Studies Abdomen/Pelvis CT 12/02/21 19:16 IMPRESSION: 6 mm calculus at the proximal aspect of the right ureter with moderate upstream dilatation of the collecting system. Right renal enlargement and perinephric stranding/fluid are likely postobstructive but would correlate clinically to exclude superimposed dissection. Electronically Signed: Denis Ortega MD at 21:56 EDT , Discharge Plan Triage Chief Complaint: Flank Pain ED Provider: Osmany Evans Dx/Rx/DC Orders Clinical Impression: Calculus of proximal right ureter Instructions: ED Kidney Stone w/ Colic Prescriptions: New hydrocodone-acetaminophen [hydrocodone-acetaminophen] 5-325 mg tablet 1 tab PO Q6H PRN PRN (Reason: Pain) 3 Days Qty: 10 0RF No Action atorvastatin 40 mg tablet 40 mg PO DAILY lisinopril 5 mg tablet 5 mg PO DAILY Label Comments: TAKE 1 TABLET BY MOUTH EVERY DAY Primary Care Provider: Davis Armstrong Referrals: Dwayne Mayes MD [Med Staff - Active Staff] - 3-5 Days Davis Armstrong MD [Primary Care Provider] - 3-5 Days Disposition Disposition: Home, Self Care
--- NOTE | 2021-12-02 19:16 | CT_ITS ---
EXAM: CT ABDOMEN AND PELVIS WITH INTRAVENOUS CONTRAST CLINICAL INDICATION: Right lower abdominal pain -- IV PO Contrast TECHNIQUE: Helically acquired images were obtained of the abdomen and pelvis with intravenous contrast. CTDIvol = ( 22.33 ) mGy, DLP = ( 1194.68 ) mGycm This CT exam was performed using one or more of the following dose reduction techniques: automated exposure control, adjustment of the mA and/or kV according to patient size, and/or use of iterative reconstruction technique. This report was created using [employer] technology. CONTRAST: Oral and amp; IV Gastrografin and amp; 100mL Isovue-370 COMPARISON: 12/14/2018. FINDINGS: LOWER THORAX: Unremarkable. Lung bases are clear. No cardiomegaly. No significant pericardial effusion. ABDOMEN: LIVER: Unremarkable. Homogeneous. No focal mass. GALLBLADDER AND BILE DUCTS: Unremarkable. No calcified gallstones. No gallbladder distention or wall edema. No intra- or extrahepatic biliary ductal dilation. PANCREAS: Unremarkable. No focal cystic or solid mass. SPLEEN: Unremarkable. Normal size without focal cystic or solid mass. ADRENALS: Unremarkable. No nodules. KIDNEYS AND URETERS: 6 mm calculus at the proximal aspect of the right ureter with moderate upstream dilatation of the collecting system. Right renal enlargement and perinephric stranding/fluid are likely postobstructive but would correlate clinically to exclude superimposed dissection. Small nonobstructing calyceal calculus at the lower pole of the right kidney. Exophytic cysts involving the kidneys bilaterally are benign requiring additional follow-up. STOMACH AND BOWEL: Distal colonic diverticulosis but no acute diverticulitis. No colitis or bowel obstruction. PELVIS: APPENDIX: No evidence of acute appendicitis. BLADDER: Unremarkable. REPRODUCTIVE: Unremarkable as visualized. No mass. ABDOMEN and PELVIS: INTRAPERITONEAL SPACE: No free air or free fluid. BONES/JOINTS: Degenerative changes of the pelvis and spine. No suspicious lytic or blastic abnormality. SOFT TISSUES: Unremarkable. No discrete abdominal or pelvic wall hernia. VASCULATURE: Unremarkable. Abdominal aorta is non-dilated. LYMPH NODES: Unremarkable. No enlarged lymph nodes. OTHER FINDINGS: Small calcified granuloma is grossly. CT/Abdomen/Pelvis WITH Contrast IMPRESSION: 6 mm calculus at the proximal aspect of the right ureter with moderate upstream dilatation of the collecting system. Right renal enlargement and perinephric stranding/fluid are likely postobstructive but would correlate clinically to exclude superimposed dissection. Electronically Signed: Denis Ortega MD at 21:56 EDT ,
[2021-12-02 19:29] LABS: Mucous, Urine 0 SEEN /hpf (<or=2+); Squamous Epithelial Cells - UA 0 SEEN /hpf (0-5)
[2021-12-02 19:32] LABS: Absolute Lymphocyte Count 0.63 X10^3/uL (0.83-4.51); Absolute Neutrophil Count 9.1 X10^3/uL (2.0-7.7); Basophil# 0.07 X10^3/uL; Basophil% 0.6 % (0-1); Eosinophil# 0.04 X10^3/uL; Eosinophils% 0.4 % (0-5); Hematocrit 43.8 % (40-54); Hemoglobin 14.4 g/dL (13.0-16.5); Lymphocyte # 0.63 X10^3/ul (0.83-4.51); Lymphocyte % 5.8 % (19-41); Mean Corp Hgb Conc 32.9 g/dL (32-36); Mean Corpuscular Volume 94.2 fL (80-94); Mean Platelet Vol. 10.4 fl (6.2-12.0); Monocyte# 0.99 X10^3/uL; Monocyte% 9.1 % (0-10); NRBC Flagged by Analyzer 0 % (0-5); Neutrophil # 9.14 X10^3/uL (2.7-7.7); Neutrophil % 83.8 % (47-70); Platelet Count 216 K/mm3 (150-450); RBC Distribution Width CV 13.1 % (11.6-14.6); RBC Distribution Width SD 44.7 fl (35.1-43.9); Red Blood Count 4.65 M/mm3 (4.6-6.2); White Blood Count 10.9 K/mm3 (4.4-11.0)
[2021-12-02 19:37] LABS: Color, Urine Yellow (Yellow); Glucose, Dipstick Normal (Normal); Ketone-Dipstick Negative (Negative); Leukocyte Esterase-Dipstick Negative /ul (Negative); Nitrite-Dipstick Negative (Negative); Occult Blood-Urine 150 /ul (Negative); Protein-Dipstick 15 mg/dl (Negative); Specific Gravity, Urine 1.015 (1.002-1.030); Urine Bilirubin Dipstick Negative (Negative); Urine Clarity Clear (Clear); Urine Urobilinogen Normal (Normal)
[2021-12-02 19:49] LABS: Red Blood Cells-Urine 5-10 SEEN /hpf (0-5)
[2021-12-02 19:50] LABS: White Blood Cells 0-5 SEEN /hpf (0-5)
[2021-12-02 19:51] LABS: Bacteria RARE /hpf (None Seen)
[2021-12-02 19:54] LABS: ALB/GLOB Ratio 1.1 RATIO (0.9-2.4); AST(SGOT) 25 U/L (15-37); Alanine Aminotransfer ALT/SGPT 21 U/L (16-61); Albumin, Serum 3.8 g/dL (3.2-5.0); Alkaline Phosphatase 71 U/L (45-117); Anion Gap 8 (5-15); BUN 28 mg/dL (7-18); BUN/Creat Ratio 22.2 RATIO (10-20); Calcium,Total 9.2 mg/dL (8.5-10.1); Chloride 109 mmol/L (98-107); Creatinine, Serum 1.26 mg/dL (0.70-1.30); EST Glomerular Filtration Rate 60 mL/min (>60); Est Glom Filt Rate - Afr Amer 73 mL/min (>60); Globulin 3.4 g/dL (2.2-4.2); Glucose 111 mg/dL (74-106); Lipase 112 U/L (73-393); Potassium 3.7 mmol/L (3.5-5.1); Protein, Total 7.2 g/dL (6.4-8.2); Sodium Level 144 mmol/L (136-145)
[2021-12-02] MEDS: Ondansetron 4 MG/2 ML Vial IV (19:54)
[2021-12-02] MEDS: 0.9% Normal Saline 1,000 ML 1000 ML IV (19:54)
[2021-12-02] MEDS: Morphine 4 MG/ML Syringe IV (19:54)
[2021-12-02 22:12] VITALS: BP 146/82; PULSE 64; RESP 18; O2SAT 100
[2021-12-02 23:08] VITALS: BP 136/82; PULSE 72; RESP 18; O2SAT 100
== END 2021-12-02 23:14 | disposition home or self-care (01) ==
PROVIDERS: Emergency Provider Emergency Medicine; PCP Family Medicine; Visit Provider Emergency Medicine
DX: N20.1 Calculus of ureter (principal); I10 Essential (primary) hypertension; Z79.899 Other long term (current) drug therapy
CPT/HCPCS: 74177; 80053; 81001; 83690; 85025; 96374; 96375; 99283; J7030; Q9967; A4216; J2405

== ENCOUNTER → 2021-12-18 | Outpatient (CLI) | payer MEDICARE, SELFPAY ==
[2021-12-18 12:08] LABS: Basophil# 0.06 X10^3/uL; Basophil% 0.6 % (0-1); Eosinophil# 0.08 X10^3/uL; Eosinophils% 0.7 % (0-5); Hematocrit 40.7 % (40-54); Hemoglobin 13.6 g/dL (13.0-16.5); Lymphocyte % 6.6 % (19-41); Mean Corp Hgb Conc 33.4 g/dL (32-36); Mean Corpuscular Volume 92.7 fL (80-94); Monocyte# 0.79 X10^3/uL; Monocyte% 7.4 % (0-10); NRBC Flagged by Analyzer 0 % (0-5); Neutrophil # 8.99 X10^3/uL (2.7-7.7); Neutrophil % 84.2 % (47-70); Platelet Count 262 K/mm3 (150-450); RBC Distribution Width CV 12.6 % (11.6-14.6); RBC Distribution Width SD 43.7 fl (35.1-43.9); Red Blood Count 4.39 M/mm3 (4.6-6.2); White Blood Count 10.7 K/mm3 (4.4-11.0)
[2021-12-18 12:24] LABS: Vitamin B12 534 pg/mL (211-911)
[2021-12-18 12:28] LABS: AST(SGOT) 20 U/L (15-37); Alanine Aminotransfer ALT/SGPT 22 U/L (16-61); Albumin, Serum 3.5 g/dL (3.2-5.0); Alkaline Phosphatase 79 U/L (45-117); Anion Gap 6 (5-15); BUN 17 mg/dL (7-18); BUN/Creat Ratio 23.4 RATIO (10-20); Chloride 107 mmol/L (98-107); Cholesterol 120 mg/dL (200); Creatinine, Serum 0.72 mg/dL (0.70-1.30); EST Glomerular Filtration Rate 114 mL/min (>60); Est Glom Filt Rate - Afr Amer 137 mL/min (>60); Ferritin 339 ng/mL (26-388); Globulin 3.5 g/dL (2.2-4.2); Glucose 95 mg/dL (74-106); High Density Lipoprotein 61 mg/dL; Iron 32 ug/dL (65-175); Iron Binding Capacity,Total 269 ug/dL (250-450); PSA,Total - Annual Screen 0.82 ng/mL (0.00-4.00); Potassium 3.7 mmol/L (3.5-5.1); Sodium Level 139 mmol/L (136-145); Triglycerides 53 mg/dL; Very Low Density Lipoprotein 11 mg/dL (5-40)
[2021-12-18 12:54] LABS: Hemoglobin A1c 6.1 % (3.8-5.6)
[2021-12-19 16:04] LABS: Transferrin 211 mg/dL (177-329)
== END | disposition home or self-care (01) ==
LOC: MFPLAB 10:10
PROVIDERS: PCP Family Medicine; Visit Provider Family Medicine
DX: E78.5 Hyperlipidemia, unspecified (principal); D64.9 Anemia, unspecified; R73.02 Impaired glucose tolerance (oral); Z12.5 Encounter for screening for malignant neoplasm of prostate
CPT/HCPCS: 36415; 80053; 80061; 82607; 82728; 83036; 83540; 83550; 84153; 84466; 85025; G0103

== ENCOUNTER 2021-12-19 08:41 | Day surgery (SDC) | payer MEDICARE, SELFPAY ==
--- NOTE | 2021-12-19 | IMM_PTH ---
PATIENT: YANET CORRIGAN LOC: [facility] [place] U#:[id number] AGE/SX: 71/M ROOM: RE12/19/[address]: Dr. Dwayne Mayes MD : 1950 BED: DIS: 12/19/2021 SPEC #: [id number] RECD: 12/20/21 11:33 STATUS: MACK RESamara #: [id number] LATHA: 12/19/21 00:[address]: Dwayne Mayes DEPT: IMMUNOHISTOCHEMISTRY RECD BY: Faina Raines ENTERED: 12/20/21 11:35 SP TYPE: IMMUNO OTHR DR: Dr. Davis Armstrong MD Tissues: Urinary bladder, NOS Procedures: CK20 (add) P53 (add) 34BE12 (add) CD44 (add) CK7 (initial) PHYSICIAN & INSTITUTION [place] [id number] SPECIMEN INFORMATION: Tissue Source: Bladder biopsy Clinical Info: Right ureteral calculus Specimen Number: [id number] CPT code: 61873, 19269 x4 METHODOLOGY: Deparaffinized sections of prefer/formalin-fixed tissue or PAP/DQ stained slides are incubated with monoclonal/polyclonal antibodies/oligonucleotide probes. Localization is made via biotin free immunoperoxidase method. Appropriate controls are performed and reacted as expected. Results on target cell population are indicated in the following table: RESULTS: ANTIBODY / CLONE RESULT CK7 (OV-TL12/30) positive CK20 (KS20.8) positive 34BE12 (34BE12) positive anti-CD44 (SP37) positive, dim P53 (DO-7) positive, 85%, dim These tests were developed and their performance characteristics determined by [facility]. They may not have been cleared or approved by the U.S. Food and Drug Administration. The FDA has determined that such clearance or approval is not necessary. The above immunohistochemical/dualISH markers are ordered and reviewed by the Pathologist. INTERPRETATION: Urinary bladder, biopsy: Consistent with papillary urothelial carcinoma. AM:sharif 12/21/2021
[2021-12-19 09:10] VITALS: BP 179/87; PULSE 68; RESP 18; TEMP 37; O2SAT 100; BMI 29.9
[2021-12-19] MEDS: Lactated Ringers 1,000 ML 15 ML IV (09:28)
--- NOTE | 2021-12-19 09:35 | RAD_ITS ---
STUDY: X-RAY - ABDOMEN/PELVIS REASON FOR EXAM: Male, 71 years old. Preop for pelvic surgery TECHNIQUE: Two AP supine views of the abdomen and pelvis. COMPARISON: CT from 12/02/2021 FINDINGS: Normal visualized lung bases. Calcifications overlying both renal shadows There is an unremarkable bowel gas pattern. There is no demonstrated free abdominal air. The visualized liver, spleen and kidneys are grossly normal in size and morphology. Normal soft tissue structures. Normal visualized osseous structures. RAD/Abdomen Single View IMPRESSION: No acute findings, likely nephrolithiasis Electronically Signed: Bj Miller MD at 11:03 EDT ,
[2021-12-19 09:55] LABS: Bedside Glucose 111 mg/dL (74-106)
[2021-12-19] MEDS: Cefazolin 2 GM in 0.9% Normal Saline 100 ML IV (11:00)
--- NOTE | 2021-12-19 11:05 | BLA_PTH ---
PATIENT: YANET CORRIGAN LOC: [facility] [place] [facility] [place] U#:[id number] AGE/SX: 71/M ROOM: RE12/19/[address]: Dr. Dwayne Mayes MD : 1950 BED: DIS: 12/19/2021 SPEC #: [id number] RECD: 12/19/21 11:45 STATUS: MACK BOGGS #: [id number] LATHA: 12/19/21 11:[address]: Dwayne Mayes DEPT: SURGICAL PATHOLOGY RECD BY: Le Ramirez ENTERED: 12/19/21 13:28 SP TYPE: BLADDER BX OTHR DR: Dr. Davis Armstrong MD Tissues: Urinary bladder, NOS Procedures: Surgery Specimen Level IV HEADER OPERATION: ESWL, ureteral stent placement, bladder biopsy PRE-OP DIAGNOSIS: Right ureteral calculus TISSUE SUBMITTED: Bladder biopsy MICROSCOPIC DIAGNOSIS Urinary bladder, biopsy: Papillary urothelial carcinoma, grade I/III. See comment. AM:sharif 12/20/2021 COMMENT There is no evidence of lamina propria invasion. Detrusor muscle is not represented in the biopsy. There is focal chronic inflammation also present. Immunohistochemistry ([id number]) supports the above diagnosis. Case has been reviewed in consultation with Dr. Laurent who concurs with the above diagnosis. PAUL:ANGELA MICROSCOPIC DESCRIPTION Slides are reviewed. GROSS DESCRIPTION Received in fixative is one container labeled with the patient's name and designated bladder biopsy. The specimen consists of one irregular fragment of light heard soft tissue that measures 0.3 x 0.3 x 0.1 cm. The specimen is totally submitted in one cassette. / ANGELA:sharif 12/19/2021 TC:0 CPT: 61748
--- NOTE | 2021-12-19 11:32 | HP.PCM_ITS ---
HPI - General General Date of Service: 12/19/21 HPI Narrative YANET CORRIGAN, is a 71 M who presents for stent placement and right ESWL also had gross hematuria. [facility] Medical History (Updated 12/19/21 @ 11:[address] Dwayne Mayes MD) Arthritis Back pain Chronic cough Diabetes Gastric reflux High cholesterol Hypertension Kidney stone Non-smoker Wears dentures Wears glasses Home Medications atorvastatin 40 mg tablet 40 mg PO DAILY 01/21/21 [History Last Taken Unknown] lisinopril 5 mg tablet 5 mg PO DAILY 12/02/21 [History Last Taken 12/19/21 05:30] garlic 300 mg tablet 300 mg PO DAILY 12/12/21 [History Last Taken Unknown] zinc 50 mg capsule 50 mg PO DAILY 12/12/21 [History Last Taken Unknown] ciprofloxacin HCl 500 mg tablet (Cipro) 500 mg PO BID #6 tabs 12/19/21 [Rx Last Taken Unknown] oxycodone-acetaminophen 5 mg-325 mg tablet 1 tab PO Q6H PRN pain 7 days #14 tabs 12/19/21 [Rx Last Taken Unknown] Allergy/AdvReac Type Severity Reaction Status Date / Time Penicillins Allergy Other Verified 12/19/21 09:05 Surgical History Hx of cystoscopy Hx of hernia repair Social History Smoking Status: Never smoker Vital Signs Vital Signs Vital Signs: 12/19/21 09:07 12/19/21 09:10 Temperature 98.6 F Temperature Source Temporal Pulse Rate 68 Respiratory Rate 18 Respiratory Pattern Normal Blood Pressure 179/87 H Blood Pressure Mean 117 Blood Pressure Source Monitor Blood Pressure Position Semi-Fowlers Blood Pressure Location Right Arm Pulse Ox 100 Oxygen Delivery Method Room Air Weight Weight: 86.636 kg Body Mass Index (BMI) 29.9 Results Lab / Micro Data Labs: Laboratory Results - last 24 hr 12/19/21 09:17: POC Glucose 111 H Radiology Impression KUB X-Ray 12/19/21 09:35 IMPRESSION: No acute findings, likely nephrolithiasis Electronically Signed: Bj Miller MD at 11:03 EDT ,
--- NOTE | 2021-12-19 11:32 | DCINST_ITS ---
Discharge Instructions Diet Discharge Diet: No restrictions Activity Discharge Activity: Return to Normal Activity Follow Up Care Please Follow Up With: Dwayne Mayes MD When: next week to discuss findings in surgery. Test Results: Test results from this visit will be discussed in further detail at your follow- up appointment, if applicable. Discharge Plan Admission Primary Reason for Your Visit: right kidney and bladder mass Attending Provider: Dwayne Mayes Primary Care Provider: Davis Armstrong Discharge Orders/Prescriptions Prescriptions: New ciprofloxacin HCl [Cipro] 500 mg tablet 500 mg PO BID Qty: 6 0RF oxycodone-acetaminophen 5-325 mg tablet 1 tab PO Q6H PRN (Reason: pain) 7 Days Qty: 14 0RF No Action atorvastatin 40 mg tablet 40 mg PO DAILY lisinopril 5 mg tablet 5 mg PO DAILY Label Comments: TAKE 1 TABLET BY MOUTH EVERY DAY garlic 300 mg Tablet 300 mg PO DAILY zinc 50 mg Capsule 50 mg PO DAILY Referrals / Follow Up: Dwayne Mayes MD [Med Staff - Active Staff] - Davis Armstrong MD [Primary Care Provider] - Disposition Disposition (needs filled in before D/C Order can be placed): Home, Self Care
--- NOTE | 2021-12-19 11:33 | OP.PCM_ITS ---
Report of Operation Date of Procedure: 12/19/21 Pre-Operative Diagnosis: right kidney stone, bladder mass Post-Operative Diagnosis: same Surgery/Procedure Performed:: cystoscopy, biopsy of mass, right stent placement and right ESWL Description of Surgical Findings:: Patient presents to the hospital for treatment of a kidney stone with shockwave lithotripsy. In the preoperative area and x-ray was done to confirm the location of the stone. The x-ray was reviewed and the stone location was reviewed. In the preoperative setting I spoke with the patient regarding the treatment of the stone how the treatment would be conducted and the expectations after surgery. The patient understands there is a risk of bleeding and infection. Also discussed the very rare risk of hematoma or damage to the kidney. We also discussed the risk that the shockwave machine will fail to break the stone adequately and that the patient may need other surgical procedures. We also discussed the possibility that the patient may need a stent after the procedure. After reviewing the procedure with the patient, the patient is signed the consent form all the patient's questions were addressed and was taken back to the operating room for treatment of a kidney stone. Patient was taken back to the operating room, patient was identified by the nursing staff, we identified the side of the treatment and the patient side of treatment had been marked by my initials. The patient underwent general anesthetic and was placed supine on the lithotripter table. We then used fluoroscopy to identify the stone on the right side. The urethra and genitals were prepped and draped in usual sterile fashion. Using a 21 Camb[place]ian rigid cystourethroscope the entire length of the urethra was normal then went into the bladder. Once inside the bladder we did a whaley cystoscopy with a 30 degree lens identified multiple papillary tumors inside the bladder there is surrounding the right ureteral orifice right lateral wall and bladder neck, a biopsy was done at these masses to see what type of cancer with this was. It appears to have bladder cancer also talked with the patient after the surgery for the kidney stone about bringing him back for surgery to resect these tumors. I then identified the trigone the left and right ureteral orifice. I then cannulated the right orifice and advanced a wire up into the kidney. I then backloaded a 5 [place] open ended catheter over the wire and injected contrast to delineate the anatomy. After the retrograde was performed I then used fluoroscopic images and guidance to advanced a wire up into the kidney and over the 0.038 glidewire I advanced a 6 Cambodian by 26 cm double pigtail stent. I then pulled the 0.038 Glidewire off and the stent coiled in the kidney bladder good position. The bladder was then drained.We then positioned the patient under the lithotripter and we used triangulation technique to identify the location of the stone and then we made sure that the stone was engaged in the F2 focal point of F2 Donier lithoprior machine. Once the patient was positioned appropriately and the stone was identified and placed in the F2 focal point of the lithotripter machine we then proceeded with shockwave lithotripsy. In the beginning the shockwave was delivered at a rate of 90 shocks per minute, we monitor the EKG for any ectopy. The power was slowly increased to 5 kV and subsequently at the 7 kV. We then proceeded with the treatment we move the therapy had around during the treatment to make sure the stone stayed in the F2 focal point during the entire treatment and after 3000 shockwaves were delivered to the stone under fluoroscopic guidance the treatment was completed. The patient was given instructions to call the office to make an a follow-up appointment with an xray to evaluate the succ ess of the treatment, pateint understands that its possible the stones may need another procedure.At this point the patient's anesthetic was reversed patient was extubated and taken back to the PACU in stable condition. Surgeon: Dwayne Mayes Type of Anesthesia: General Drains: stent Admit VTE Documentation VTE Present on Admission: No VTE Mechan Device Prophylaxis: SCD's VTE Pharm Prophylaxis ordered?: No
[2021-12-19 12:03] VITALS: BP 153/86; BP 179/87; PULSE 70; RESP 14; TEMP 36.9; O2SAT 98
[2021-12-19 12:15] VITALS: BP 135/76; BP 179/87; PULSE 65; RESP 14; O2SAT 97
[2021-12-19] MEDS: Lactated Ringers 1,000 ML 100 ML IV (12:22)
[2021-12-19 12:29] VITALS: BP 164/84; BP 179/87; PULSE 66; RESP 16; TEMP 36.4; O2SAT 98
[2021-12-19 12:35] LABS: Bedside Glucose 99 mg/dL (74-106)
[2021-12-19 13:58] VITALS: BP 148/82; BP 179/87; PULSE 76; RESP 16; TEMP 36.2; O2SAT 97
== END 2021-12-19 14:00 | disposition home or self-care (01) ==
LOC: SDC 08:44 → AC 08:46
PROVIDERS: PCP Family Medicine; Referring Provider Urology; Visit Provider Urology
PROC: (CPT 50590; principal; 2021-12-19 10:55)
DX: C67.9 Malignant neoplasm of bladder, unspecified (principal); N20.0 Calculus of kidney; I10 Essential (primary) hypertension; E78.00 Pure hypercholesterolemia, unspecified; Z79.899 Other long term (current) drug therapy
CPT/HCPCS: 52332; 50590; 00873; 74018; 82962; 88305; 88341; 88342; J7120; C1769; J2405

== ENCOUNTER 2022-01-16 06:16 | Day surgery (SDC) | payer MEDICARE, SELFPAY ==
--- NOTE | 2022-01-16 06:32 | EKG12_ITS ---
Test Reason : PREOP Blood Pressure : / mmHG Vent. Rate : 060 BPM Atrial Rate : 060 BPM P-R Int : 162 ms QRS Dur : 086 ms QT Int : 402 ms P-R-T Axes : 063 -13 022 degrees QTc Int : 402 ms Normal sinus rhythm with sinus arrhythmia Inferior infarct , age undetermined Abnormal ECG When compared with ECG of 07-MAR-2010 08:15, Inferior infarct is now Present Confirmed by MIGUELINA SANTIAGO, [place] ([id number]), publishing editor BRYCE ALBERT ([id number]) on 01/19/2022 7:15:37 AM Referred By: Dwayne Mayes Confirmed By:MONTANA MCINTYRE MD
[2022-01-16 06:54] VITALS: BP 160/91; PULSE 64; RESP 18; TEMP 37.1; O2SAT 100; BMI 30.6
[2022-01-16 07:00] LABS: Bedside Glucose 94 mg/dL (74-106)
[2022-01-16] MEDS: Lactated Ringers 1,000 ML 15 ML IV (07:05)
--- NOTE | 2022-01-16 08:00 | DCINST_ITS ---
Discharge Instructions Diet Discharge Diet: No restrictions, Light diet - advance as tolerated and Soft diet Activity Discharge Activity: Return to Normal Activity Dressing / Incision Call your doctor if your incision/area has: Continuous Slow Oozing and Sudden Increased Bleeding Follow Up Care Please Follow Up With: Dwayne Mayes MD When: 2 weeks Test Results: Test results from this visit will be discussed in further detail at your follow- up appointment, if applicable. Discharge Plan Admission Primary Reason for Your Visit: Resection of bladder tumor Attending Provider: Dwayne Mayes Primary Care Provider: Davis Armstrong Discharge Orders/Prescriptions Prescriptions: New ciprofloxacin HCl [Cipro] 500 mg tablet 500 mg PO BID Qty: 10 0RF Continued atorvastatin 40 mg tablet 40 mg PO DAILY lisinopril 5 mg tablet 5 mg PO DAILY Label Comments: TAKE 1 TABLET BY MOUTH EVERY DAY garlic 300 mg Tablet 300 mg PO DAILY zinc 50 mg Capsule 50 mg PO DAILY Other Ambulatory Orders: 12 Lead EKG (Routine) Timeframe: [id number] Location: None Selected Ordered By: Dr. Gilbert Massey Referrals / Follow Up: Dwayne Mayes MD [Med Staff - Active Staff] - Davis Armstrong MD [Primary Care Provider] - Disposition Disposition (needs filled in before D/C Order can be placed): Home, Self Care
--- NOTE | 2022-01-16 08:00 | PCM.HP.STD ---
HPI - General HPI Narrative YANET CORRIGAN, is a 72 M who presents for resection of a bladder tumor he had a biopsy that came back with high-grade bladder cancer he does have a stent in place we can resect the tumor and remove the stent today. PFSH Medical History Arthritis Back pain Chronic cough Diabetes Gastric reflux High cholesterol Hypertension Kidney stone Non-smoker Wears dentures Wears glasses Home Medications atorvastatin 40 mg tablet 40 mg PO DAILY HLD 01/21/21 [History Last Taken 01/15/22] lisinopril 5 mg tablet 5 mg PO DAILY HTN 12/02/21 [History Last Taken 01/16/22 05:00] garlic 300 mg tablet 300 mg PO DAILY SUPPLEMENT 12/12/21 [History Last Taken 01/15/22] zinc 50 mg capsule 50 mg PO DAILY SUPPLEMENT 12/12/21 [History Last Taken 01/15/22] ciprofloxacin HCl 500 mg tablet (Cipro) 500 mg PO BID #10 tabs 01/16/22 [Rx Last Taken Unknown] Allergy/AdvReac Type Severity Reaction Status Date / Time Penicillins Allergy Other Verified 01/16/22 06:47 Surgical History Hx of cystoscopy Hx of hernia repair Social History Smoking Status: Never smoker Vital Signs Vital Signs Vital Signs: 01/16/22 06:51 01/16/22 06:54 Temperature 98.7 F Temperature Source Temporal Pulse Rate 64 Respiratory Rate 18 Respiratory Pattern Normal Blood Pressure 160/91 H Blood Pressure Mean 114 Blood Pressure Source Monitor Blood Pressure Position Semi-Fowlers Blood Pressure Location Left Arm Pulse Ox 100 Oxygen Delivery Method Room Air Weight Weight: 88.723 kg Body Mass Index (BMI) 30.6 Results Lab / Micro Data Labs: Laboratory Results - last 24 hr 01/16/22 06:41: POC Glucose 94
[2022-01-16] MEDS: Cefazolin 2 GM in 0.9% Normal Saline 100 ML IV (08:10)
--- NOTE | 2022-01-16 08:25 | BLB_PTH ---
PATIENT: YANET CORRIGAN LOC: [facility] [place] U#:[id number] AGE/SX: 72/M ROOM: RE01/16/[address]: Dr. Dwayne Mayes MD : [id number] BED: DIS: 01/16/2022 SPEC #: [id number] RECD: 01/16/22 13:46 STATUS: MACK BOGGS #: [id number] LATHA: 01/16/22 08:[address]: Dwayne Mayes DEPT: SURGICAL PATHOLOGY RECD BY: Le Ramirez ENTERED: 01/17/22 09:00 SP TYPE: TURB OTHR DR: Dr. Davis Armstrong MD Tissues: Urinary bladder, NOS Procedures: Surgery Specimen Level V HEADER OPERATION: Cysto, transurethral resection bladder, Olympus, stent removal PRE-OP DIAGNOSIS: Bladder tumor TISSUE SUBMITTED: Bladder tumor MICROSCOPIC DIAGNOSIS Urinary bladder tumor, transurethral resection: Papillary urothelial carcinoma. See cancer synoptic report below. AM:sharif 01/18/2022 COMMENT BLADDER CANCER (TUR) SUMMARY Procedure: Transurethral resection of bladder tumor (TURBT) Tumor site: Not specified Histologic type: Papillary urothelial carcinoma Histologic grade: Grade 2/3 (WHO low grade) Tumor configuration: Papillary Muscularis propria presence: Present and free of tumor. Lymphvascular invasion: Not identified Tumor extension: Confined to urothelium. Additional pathologic findings: None The above summary is in compliance with [employer] (CAP) Cancer Protocols Checklist and [place] Joint Committee on Cancer (AJCC), Staging Manual, 8th Ed. MICROSCOPIC DESCRIPTION Slides are reviewed. GROSS DESCRIPTION Received in fixative is one container labeled with the patient's name and designated bladder tumor. The specimen consists of multiple irregular fragments of light heard soft tissue that in aggregate measure 3 x 1.6 x 0.2 cm. The specimen is totally submitted in one cassette. / AM:sharif 01/17/2022 TC:0 CPT: 57809
--- NOTE | 2022-01-16 08:49 | PCM.OPRPT ---
Report of Operation Date of Procedure: 01/16/22 Pre-Operative Diagnosis: Large bladder tumor Post-Operative Diagnosis: Same Surgery/Procedure Performed:: Transurethral section of a tumor greater than 5 cm in size Description of Surgical Findings:: Patient presented to the hospital for treatment of a tumor that was found in the bladder with a very large bladder tumor. Patient understands is possible it may not be able to resect the entire tumor. Patient also understands is possible that the patient may need multiple procedures or more invasive procedures to cure him of this cancer. Patient was taken back to the operating room after smooth induction of anesthesia the patient was placed supine on the table. The patient was placed in dorsolithotomy position. The urethra and genitals prepped and draped in usual sterile fashion. I went into the bladder with a 30 degree lens and a cystoscope was performed and identified the tumor the tumors which was larger than 5 centimeters in size and occupying mostly the lateral wall of the bladder. I then switched over to the 70 degree lens and inspected the rest of the bladder with a 70 degree lens to make sure there is no other tumors in the bladder and to identify all the tumor locations. The right and left ureteral orifice were identified. The tumor was not involved in the ureteral orifices. I then placed the Olympus bipolar resectoscope with a large loop into the bladder. I then started resected the tumor and started superficially shaving small little pieces working my way to the base of the tumor. As I went along I then cauterize any bleeders that were encountered during the resection. The tumor pieces were then flushed out of the bladder and continued resecting the tumor until finally I got down to the base of the tumor and the muscle of the bladder was then identified a small little bit of muscle was taken with the resection. The Ellik was used then to evacuate all the tumor pieces out of the bladder. I then cauterized extensively the tumor base and also circumferentially around where the tumor was. Again we made sure to evacuate all the pieces out the bladder. I made sure there was no more bleeding from the base of the bladder and then over the tumor pieces were then evacuated out and sent off as a specimen. After resection was completed then I removed the stent on the right side. After the resection of the entire tumor was completed then treatment with Mitomycin-C was performed. We then placed the catheter in the bladder and the patient was taken back to the PACU in stable condition. Surgeon: Dwayne Mayes Type of Anesthesia: General Drains: Stent removed Admit VTE Documentation VTE Present on Admission: No VTE Mechan Device Prophylaxis: SCD's VTE Pharm Prophylaxis ordered?: No
[2022-01-16 09:00] VITALS: BP 160/91; BP 171/101; PULSE 73; RESP 16; TEMP 36.6; O2SAT 98
[2022-01-16 09:15] VITALS: BP 160/91; BP 177/93; PULSE 53; RESP 16; O2SAT 100
[2022-01-16 09:30] LABS: Bedside Glucose 111 mg/dL (74-106)
[2022-01-16] MEDS: Acetaminophen 325 MG Tablet 650 MG PO (09:50)
[2022-01-16] MEDS: oxyCODONE 5 MG Tablet PO (09:50)
[2022-01-16 10:27] VITALS: BP 142/98; BP 160/91; PULSE 51; RESP 18; TEMP 36.1; O2SAT 98
== END 2022-01-16 11:06 | disposition home or self-care (01) ==
LOC: SDC 06:24 → AC 06:24
PROVIDERS: PCP Family Medicine; Referring Provider Urology; Visit Provider Urology
PROC: 0TBB8ZZ Excision of Bladder, Via Natural or Artificial Opening Endoscopic (ICD-10-PCS; CPT 52240; principal; 2022-01-16 08:15)
DX: D09.0 Carcinoma in situ of bladder (principal); E11.9 Type 2 diabetes mellitus without complications; I10 Essential (primary) hypertension; E78.00 Pure hypercholesterolemia, unspecified; Z79.899 Other long term (current) drug therapy
CPT/HCPCS: 52240; 00912; 82962; 88307; 93005; J7120; J2405

== ENCOUNTER 2022-01-16 15:22 | Observation (INO) | payer MEDICARE, SELFPAY ==
[2022-01-16 15:26] VITALS: BP 195/119; PULSE 121; RESP 16; TEMP 36.6; O2SAT 98; BMI 31.4
[2022-01-16 15:36] VITALS: BP 151/96; PULSE 95; RESP 16; O2SAT 99
--- NOTE | 2022-01-16 15:56 | EX.ED.DYSGE1 ---
HPI History of Present Illness Chief Complaint: Complaint Informant: patient Narrative Narrative: Patient presents secondary to urinary retention. He had bladder surgery this morning with Dr. Mayes. He states he had a tumor in his bladder that was scraped out. He was able to urinate prior to leaving the surgery center but did have bloody urine. He states since getting home he has not been able to pass any urine. Is him entering the room to see the patient nursing staff has just placed a Thurston catheter. Bloody urine is noted. Patient states his abdominal pain is much improved. [facility] Medical History Bladder cancer GERD (gastroesophageal reflux disease) Hypertension Kidney stones Allergy/AdvReac Type Severity Reaction Status Date / Time No Known Allergies Allergy Verified 01/16/22 15:31 Social History Smoking Status: Never smoker ROS ROS ED Constitutional Constitutional ED: Denies chills or fever(s) Eyes Eyes: Denies change in vision or discharge from eye(s) ENT ENT ED: Denies discharge from eye(s), rhinorrhea or sore throat Cardiovascular Cardiovascular: Denies chest pain or palpitations Respiratory/Chest Respiratory/Chest: Denies cough or dyspnea Gastrointestinal Gastrointestinal: Reports abdominal pain; Denies diarrhea, nausea or vomiting Genitourinary Genitourinary ED: Reports difficulty urinating Musculoskeletal Musculoskeletal: Denies back pain or extremity pain Integumentary Denies Abrasions or rash Neurologic Neurologic: Denies headache(s) or weakness Psychiatric Psychiatric: Denies anxiety or depression Allergic/Immunologic Allergic/Immunologic ED: Denies lip swelling or urticaria EXAM Physical Exam Const Vital Signs: 01/16/22 15:26 01/16/22 15:36 Temperature 97.9 F Temperature Source Oral Pulse Rate 121 H 95 Respiratory Rate 16 16 Blood Pressure 195/119 H 151/96 H Blood Pressure Mean 144 114 Pulse Ox 98 99 Oxygen Delivery Method Room Air Room Air Positive well nourished and well developed General Appearance ED: well developed HEENT Reports normocephalic and head/scalp atraumatic Eyes PERRL and EOMs intact bilaterally Neck supple Chest Wall inspection of chest normal and palpation of chest normal Resp normal respiratory effort and clear to auscultation bilaterally Cardio regular rate and regular rhythm GI GI Narrative: Abdomen soft nondistended at this time. Palpation: soft Narrative: Thurston catheter is in place with dark bloody urine noted. Extremity normal to inspection Neuro oriented x3 and no sensory deficits noted Sensorium / Orientation: alert Motor Exam: strength 5/5 throughout Psych mental status grossly normal Skin no rashes or lesions noted MDM MDM MDM Narrative Medical decision making narrative: Thurston catheter been placed by nursing staff. Blood work and urinalysis obtained. Lab Data Labs: Laboratory Results - last 24 hr 01/16/22 01/16/22 01/16/22 15:48 15:48 15:50 WBC 7.9 RBC 4.32 L Hgb 13.4 Hct 39.5 L MCV 91.4 MCH 31.0 MCHC 33.9 RDW Std Deviation 42.2 RDW Coeff of Kim 12.7 Plt Count 236 MPV 10.3 Immature Gran % (Auto) 0.400 Neut % (Auto) 83.2 H Lymph % (Auto) 8.0 L [place] % (Auto) 7.2 Eos % (Auto) 0.6 Baso % (Auto) 0.6 Absolute Neuts (auto) 6.6 Absolute Lymphs (auto) 0.63 L Nucleated RBC % 0 Sodium 137 Potassium 3.3 L Chloride 106 Carbon Dioxide 25.0 Anion Gap 6 BUN 21 H Creatinine 0.90 Estim Creat Clear Calc 70.38 Est GFR (MDRD) Af Amer 107 Est GFR (MDRD) Non-Af 89 BUN/Creatinine Ratio 23.4 H Glucose 153 H Calcium 8.5 Urine Color Red Urine Clarity Turbid Urine pH 7.0 Ur Specific [place] 1.010 Urine Protein 500 H Urine Glucose (UA) 50 H Urine Ketones Negative Urine Occult Blood 250 H Urine Nitrite Negative Urine Bilirubin Negative Urine Urobilinogen Normal Ur Leukocyte Esterase 25 H Urine RBC > 100 SEEN Urine WBC 10-25 SEEN Ur Squamous Epith Cells 0 SEEN Urine Bacteria 0 SEEN Urine Mucus 0 SEEN Treatment and Re-Evaluation Narrative: CBC and chemistry studies unremarkable. Urinalysis reveals blood but no bacteria. Nursing staff did manually irrigate the patient. They did get some large clots out. Patient still has dark bloody urine noted. I spoke with Dr. Mayes and patient will be admitted to the floor for continuous bladder irrigation. Floor is to call him for orders. Discharge Plan Triage Chief Complaint: Complaint ED Provider: Georgina Hatch Dx/Rx/DC Orders Clinical Impression: Urinary retention, Hematuria, Bladder mass Primary Care Provider: Davis Armstrong Referrals: Davis Armstrong MD [Primary Care Provider] - Disposition Disposition: [facility]
[2022-01-16 15:58] LABS: Bacteria 0 SEEN /hpf (None Seen); Mucous, Urine 0 SEEN /hpf (<or=2+); Squamous Epithelial Cells - UA 0 SEEN /hpf (0-5)
[2022-01-16 16:09] LABS: Absolute Lymphocyte Count 0.63 X10^3/uL (0.83-4.51); Absolute Neutrophil Count 6.6 X10^3/uL (2.0-7.7); Basophil# 0.05 X10^3/uL; Basophil% 0.6 % (0-1); Eosinophil# 0.05 X10^3/uL; Eosinophils% 0.6 % (0-5); Hematocrit 39.5 % (40-54); Hemoglobin 13.4 g/dL (13.0-16.5); Lymphocyte # 0.63 X10^3/ul (0.83-4.51); Mean Corp Hgb Conc 33.9 g/dL (32-36); Mean Corpuscular Volume 91.4 fL (80-94); Mean Platelet Vol. 10.3 fl (6.2-12.0); Monocyte# 0.57 X10^3/uL; Monocyte% 7.2 % (0-10); NRBC Flagged by Analyzer 0 % (0-5); Neutrophil # 6.57 X10^3/uL (2.7-7.7); Neutrophil % 83.2 % (47-70); Platelet Count 236 K/mm3 (150-450); RBC Distribution Width CV 12.7 % (11.6-14.6); RBC Distribution Width SD 42.2 fl (35.1-43.9); Red Blood Count 4.32 M/mm3 (4.6-6.2); White Blood Count 7.9 K/mm3 (4.4-11.0)
[2022-01-16 16:12] LABS: Color, Urine Red (Yellow); Glucose, Dipstick 50 mg/dl (Normal); Ketone-Dipstick Negative (Negative); Leukocyte Esterase-Dipstick 25 /ul (Negative); Nitrite-Dipstick Negative (Negative); Occult Blood-Urine 250 /ul (Negative); Protein-Dipstick 500 mg/dl (Negative); Urine Bilirubin Dipstick Negative (Negative); Urine Clarity Turbid (Clear); Urine Urobilinogen Normal (Normal)
[2022-01-16 16:15] LABS: Red Blood Cells-Urine > 100 SEEN /hpf (0-5); White Blood Cells 10-25 SEEN /hpf (0-5)
[2022-01-16 16:15] LABS: Anion Gap 6 (5-15); BUN 21 mg/dL (7-18); BUN/Creat Ratio 23.4 RATIO (10-20); Calcium,Total 8.5 mg/dL (8.5-10.1); Chloride 106 mmol/L (98-107); EST Glomerular Filtration Rate 89 mL/min (>60); Est Glom Filt Rate - Afr Amer 107 mL/min (>60); Estimated Creatinine Clearance 70.38 ml/min; Glucose 153 mg/dL (74-106); Potassium 3.3 mmol/L (3.5-5.1); Sodium Level 137 mmol/L (136-145)
[2022-01-16 16:31] VITALS: BP 132/79; PULSE 78; RESP 16; TEMP 36.6; O2SAT 99
[2022-01-16] MEDS: 0.9% Normal Saline 1,000 ML 150 ML IV (16:44)
--- NOTE | 2022-01-16 16:45 | ED.RN ---
bladder irrigated previously with 700cc sterile water manually with 2 large stringy clots remmoved. pt denies any pain now. urine continues to still be a dark red.
[2022-01-16 18:35] VITALS: BMI 30.4
[2022-01-16 18:38] VITALS: BP 168/94; PULSE 72; RESP 18; TEMP 36.8; O2SAT 99
[2022-01-16 19:30] VITALS: BP 149/80; PULSE 64; RESP 16; TEMP 36.8; O2SAT 97
[2022-01-16] MEDS: 0.9% Normal Saline 1,000 ML 75 ML IV (21:04)
[2022-01-17] VITALS (7 sets, daily range): BP systolic 127–145; BP diastolic 73–89; PULSE 66–74; RESP 14–18; TEMP 36.8–37; O2SAT 95–98
--- NOTE | 2022-01-17 07:42 | PCM.HP.STD ---
HPI - General General Date of Admission: 01/16/22 HPI Narrative YANET CORRIGAN, is a 72 M who presents With retention of urine status post TUR BT for large bladder tumor went home immediately came back to the emergency room with retention of urine and gross bloody urine. Urine is now clearing with a catheter we will keep him hydrated and admit the patient for bleeding and retention of urine. [facility] Medical History Bladder cancer GERD (gastroesophageal reflux disease) Hypertension Kidney stones Home Medications atorvastatin 40 mg tablet 40 mg PO QPM CHOLESTEROL 01/16/22 [History Last Taken 01/15/22] lisinopril 5 mg tablet 5 mg PO DAILY BLOOD PRESSURE 01/16/22 [History Last Taken 01/16/22] oxycodone-acetaminophen 5 mg-325 mg tablet 1 tab PO Q6H PRN PRN Pain 01/16/22 [History Last Taken Unknown] Allergy/AdvReac Type Severity Reaction Status Date / Time No Known Allergies Allergy Verified 01/16/22 15:31 Social History Smoking Status: Never smoker Vital Signs Vital Signs Vital Signs: 01/16/22 15:26 01/16/22 15:36 01/16/22 16:31 Temperature 97.9 F 97.9 F Temperature Source Oral Oral Pulse Rate 121 H 95 78 Pulse Strength Respiratory Rate 16 16 16 Respiratory Effort Respiratory Depth Respiratory Pattern Blood Pressure 195/119 H 151/96 H 132/79 H Blood Pressure Mean 144 114 96 Blood Pressure Source Blood Pressure Position Blood Pressure Location Pulse Ox 98 99 99 Oxygen Delivery Method Room Air Room Air Room Air 01/16/22 18:38 01/16/22 22:00 01/16/22 19:30 Temperature 98.2 F Temperature Source Oral Pulse Rate 72 Pulse Strength Normal (2+) Respiratory Rate 18 Respiratory Effort Normal Non-Labored Respiratory Depth Normal Respiratory Pattern Normal Blood Pressure 168/94 H Blood Pressure Mean 118 Blood Pressure Source Monitor Blood Pressure Position Semi-Fowlers Blood Pressure Location Right Arm Pulse Ox 99 Oxygen Delivery Method Room Air Room Air 01/16/22 19:30 01/17/22 01:30 01/17/22 01:30 Temperature 98.3 F 98.6 F 98.6 F Temperature Source Oral Oral Oral Pulse Rate 64 74 74 Pulse Strength Respiratory Rate 16 16 16 Respiratory Effort Respiratory Depth Respiratory Pattern Blood Pressure 149/80 H 136/84 H 136/84 H Blood Pressure Mean 103 101 101 Blood Pressure Source Monitor Blood Pressure Position Semi-Fowlers Blood Pressure Location Right Arm Pulse Ox 97 96 96 Oxygen Delivery Method Room Air Room Air Room Air Weight Weight: 88.3 kg Body Mass Index (BMI) 30.4 Results Lab / Micro Data Result Diagrams: 01/16/22 15:48 01/16/22 15:48 Labs: Laboratory Results - last 24 hr 01/16/22 15:48: WBC 7.9, RBC 4.32 L, Hgb 13.4, Hct 39.5 L, MCV 91.4, MCH 31.0, MCHC 33.9, RDW Std Deviation 42.2, RDW Coeff of Kim 12.7, Plt Count 236, MPV 10.3, Immature Gran % (Auto) 0.400, Neut % (Auto) 83.2 H, Lymph % (Auto) 8.0 L, [place] % (Auto) 7.2, Eos % (Auto) 0.6, Baso % (Auto) 0.6, Absolute Neuts (auto) 6.6, Absolute Lymphs (auto) 0.63 L, Nucleated RBC % 0 01/16/22 15:48: Sodium 137, Potassium 3.3 L, Chloride 106, Carbon Dioxide 25.0, Anion Gap 6, BUN 21 H, Creatinine 0.90, Estim Creat Clear Calc 70.38, Est GFR (MDRD) Af Amer 107, Est GFR (MDRD) Non-Af 89, BUN/Creatinine Ratio 23.4 H, Glucose 153 H, Calcium 8.5 01/16/22 15:50: Urine Color Red, Urine Clarity Turbid, Urine pH 7.0, Ur Specific [place] 1.010, Urine Protein 500 H, Urine Glucose (UA) 50 H, Urine Ketones Negative, Urine Occult Blood 250 H, Urine Nitrite Negative, Urine Bilirubin Negative, Urine Urobilinogen Normal, Ur Leukocyte Esterase 25 H, Urine RBC > 100 SEEN, Urine WBC 10-25 SEEN, Ur Squamous Epith Cells 0 SEEN, Urine Bacteria 0 SEEN, Urine Mucus 0 SEEN
[2022-01-17] MEDS: Ciprofloxacin 500 MG Tablet PO ×2 (10:14→21:26)
[2022-01-17] MEDS: 0.9% Normal Saline 1,000 ML 75 ML IV ×2 (10:14→21:27)
[2022-01-17] MEDS: Lisinopril 5 MG Tablet PO (10:14)
--- NOTE | 2022-01-17 14:55 | CASEMGMT ---
DARWIN CM in to discuss VELEZ form with patient. RN CM explained VELEZ form, patient voiced understanding. Pt signed form and filed in chart. Pt provided with a copy of signed VELEZ form. Patient had no further questions or concerns at this time.
[2022-01-17] MEDS: Atorvastatin Calcium 40 MG Tablet PO (21:26)
[2022-01-18 04:05] VITALS: BP 158/91; PULSE 65; RESP 18; TEMP 36.5; O2SAT 95
[2022-01-18 04:06] VITALS: BP 158/91; PULSE 65; RESP 18; TEMP 36.5; O2SAT 95
[2022-01-18 07:55] VITALS: BP 160/84; PULSE 63; RESP 18; TEMP 36.7; O2SAT 97
[2022-01-18 08:10] VITALS: PULSE 63; RESP 18; O2SAT 97
[2022-01-18] MEDS: Lisinopril 5 MG Tablet PO (09:45)
[2022-01-18] MEDS: Ciprofloxacin 500 MG Tablet PO (09:45)
[2022-01-18] MEDS: 0.9% Normal Saline 1,000 ML 75 ML IV (09:48)
--- NOTE | 2022-01-18 10:48 | DCINST_ITS ---
Discharge Instructions Follow Up Care Test Results: Test results from this visit will be discussed in further detail at your follow- up appointment, if applicable. Discharge Plan Admission Admit Date/Time: 01/16/22 18:53 Attending Provider: Dwayne Mayes Primary Care Provider: Davis Armstrong Discharge Orders/Prescriptions Prescriptions: No Action atorvastatin 40 mg tablet 40 mg PO QPM Label Comments: TAKE 1 TABLET BY MOUTH EVERYDAY AT BEDTIME oxycodone-acetaminophen 5-325 mg tablet 1 tab PO Q6H PRN PRN (Reason: Pain) lisinopril 5 mg tablet 5 mg PO DAILY Label Comments: TAKE 1 TABLET BY MOUTH EVERY DAY Referrals / Follow Up: Davis Armstrong MD [Primary Care Provider] -
--- NOTE | 2022-01-18 12:01 | CASEMGMT ---
Addendum entered by Adriana Mercado 01/18/22 13:11: Pt chose [facility] for SN. Referral made. RN GABRIELA spoke with Zaira. Awaiting acceptance. Original Note: DARWIN OCHOA to pt's room to discuss HHC. Pt is discharging with a torres in place. Nurse has educated. Pt said he prefers SN HHC due to torres. Patient was provided a list of HHC providers including quality and resource use data and consistent with the patient?s preferred geographic region, medical needs, and insurance network were provided from the [employer] Guide. Pt to review the list, choose a provider, and advise DARWIN OCHOA so that services can be set up.
[2022-01-18 12:06] VITALS: BP 142/80; PULSE 77; RESP 18; TEMP 36.8; O2SAT 97
--- NOTE | 2022-01-18 13:45 | CASEMGMT ---
Addendum entered by Komal Riley 01/18/22 14:46: TC to Zaira at [facility], she has not heard back from the page. RN CM into pt room, pt states it will be unhandy to go the the PCP's office Friday without cath teaching. He is aware HHC can not see him until the appt. Pt wishes to cancel the HHC and the appt for Friday. Pt brother in room. Pt nurse in room as well and states she will review the teaching again. Cancelled HHC with Zaira and appt with [facility] on Friday. Original Note: Received tc from Zaira at [facility], able to accept pt. States pt will need to see prior to HHC starting. She will contact to see if he will follow HHC. TC to 's office, appt made with [facility]NA[facility] on Friday at 1:30pm. TC back to Zaira to make aware. She paged and is awaiting a response.
== END 2022-01-18 15:09 | disposition home health service (06) ==
LOC: ED 16:33 → MS3 21:26
PROVIDERS: Admitting Provider Urology; Emergency Provider Emergency Medicine; PCP Family Medicine; Visit Provider Urology
DX: N99.89 Other postprocedural complications and disorders of genitourinary system (principal); C67.9 Malignant neoplasm of bladder, unspecified; E11.9 Type 2 diabetes mellitus without complications; R33.9 Retention of urine, unspecified; R31.0 Gross hematuria; D09.0 Carcinoma in situ of bladder; I10 Essential (primary) hypertension; E78.00 Pure hypercholesterolemia, unspecified; Z79.899 Other long term (current) drug therapy; Z98.890 Other specified postprocedural states; Y83.6 Removal of other organ (partial) (total) as the cause of abnormal reaction of the patient, or of later complication, without mention of misadventure at the time of the procedure
CPT/HCPCS: 52240; 00912; 51702; 80048; 81001; 82962; 85025; 88307; 93005; 96360; 96361; 99218; 99251; 99282; 99285; J7030; J7120; A4216; G0378; G0463; J2405

== ENCOUNTER 2022-01-18 17:02 | Emergency (ER) | payer MEDICARE, SELFPAY ==
[2022-01-18 17:03] VITALS: BP 145/96; PULSE 113; RESP 18; TEMP 37.1; O2SAT 94; BMI 30.5
--- NOTE | 2022-01-18 17:26 | EX.ED.GUMALE ---
HPI History of Present Illness Chief Complaint: Thurston C/O Detail of Chief Complaint: Thurston catheter problem Informant: patient Narrative Narrative: Patient presents the emergency department with complaint of feeling like the catheter is going to fall out. Patient has a Thurston catheter in place after he had bladder surgery to remove a tumor 2 days ago. Patient was just discharged from the hospital yesterday. Today patient states that he had a small amount of urine coming from around the catheter. Patient denies any abdominal pain. He said no fever. Said no vomiting. No other complaints. PFSH PFS Medical History Bladder cancer GERD (gastroesophageal reflux disease) Hypertension Kidney stones Home Medications atorvastatin 40 mg tablet 40 mg PO QPM CHOLESTEROL 01/16/22 [History Last Taken 01/15/22] lisinopril 5 mg tablet 5 mg PO DAILY BLOOD PRESSURE 01/16/22 [History Last Taken 01/16/22] oxycodone-acetaminophen 5 mg-325 mg tablet 1 tab PO Q6H PRN PRN Pain 01/16/22 [History Last Taken Unknown] Allergy/AdvReac Type Severity Reaction Status Date / Time No Known Allergies Allergy Verified 01/18/22 17:03 Social History Smoking Status: Never smoker ROS ROS ED ROS Narrative Thurston catheter problem Review of Systems ROS Unobtainable: other Constitutional Constitutional ED: Reports lethargy; Denies chills, fever(s), sweats or weight loss Eyes Eyes: Denies blurry vision, change in vision or diplopia ENT ENT ED: Denies rhinorrhea or sore throat Cardiovascular Cardiovascular: Denies chest pain, orthopnea or racing heartbeat Respiratory/Chest Respiratory/Chest: Denies cough, dyspnea, dyspnea on exertion, orthopnea or sputum Gastrointestinal Gastrointestinal: Denies abdominal pain, diarrhea, nausea or vomiting Genitourinary Genitourinary ED: Reports hematuria; Denies dysuria or urinary frequency Musculoskeletal Musculoskeletal: Denies arthralgias, back pain, myalgias or neck pain Integumentary Denies abscess, Abrasions or rash Neurologic Neurologic: Denies headache(s) or weakness Psychiatric Psychiatric: Denies anxiety, depression or suicidal thoughts Endocrine Endocrinology: Denies polydipsia, polyphagia or polyuria Hematologic/Lymphatic Hematologic/Lymphatic: Denies easy bleeding, easy bruising or lymphadenopathy Allergic/Immunologic Allergic/Immunologic ED: Denies mouth swelling, tongue swelling or urticaria EXAM Physical Exam Const Vital Signs: 01/18/22 17:03 Temperature 98.7 F Temperature Source Temporal Pulse Rate 113 H Respiratory Rate 18 Blood Pressure 145/96 H Blood Pressure Mean 112 Pulse Ox 94 Oxygen Delivery Method Room Air Positive well nourished and well developed General Appearance ED: well developed and NAD HEENT Reports TM's clear and moist mucous membranes normocephalic and atraumatic; Negative for trauma or tenderness Tympanic Membrane ED: Yes TM's clear Eyes PERRL and EOMs intact bilaterally General Eye ED: Negative for pale conjunctiva or scleral icterus Neck no lymphadenopathy, supple and no JVD General: Negative for tenderness Chest Wall inspection of chest normal and palpation of chest normal Chest: Negative for tenderness Resp normal respiratory effort and clear to auscultation bilaterally Effort and Inspection: Negative for respiratory distress or pain with movement Auscultation: Negative for rhonchi, wheezes or diminished lung sounds Cardio regular rate, regular rhythm, S1 normal heart sound, S2 normal heart sound and no murmurs Peripheral Pulses: pulses 2+ throughout GI normal to inspection, nondistended, normoactive bowel sounds, soft to palpation, non-tender, non-distended and no masses Narrative: Patient has a Thurston catheter in place that seems to be draining grossly bloody urine. Nurse did check the balloon and there was fluid within the balloon. We irrigated the catheter and there was good drainage through the catheter. At this time there is no drainage from around the catheter. Back/Spine no CVA tenderness and no thoracic nor lumbar tenderness Extremity normal to inspection General Extremety ED: Negative for edema General Extremity: Negative for edema Neuro oriented x3, CN's II-XII intact bilaterally, no sensory deficits noted and gait normal Sensorium / Orientation: awake, alert, oriented to person, oriented to place and oriented to time Motor Exam: strength 5/5 throughout and strength abnormal Psych mental status grossly normal Skin no rashes or lesions noted and no wounds MDM MDM MDM Narrative Medical decision making narrative: Patient had the catheter and the balloon checked. It seems to be functioning properly. No further intervention required at this time. Discharge Plan Triage Chief Complaint: Thurston C/O ED Provider: Tayo Garner Dx/Rx/DC Orders Clinical Impression: Hematuria, Thurston catheter problem Instructions: ED Thurston Catheter, Care, ED Hematuria Prescriptions: No Action atorvastatin 40 mg tablet 40 mg PO QPM Label Comments: TAKE 1 TABLET BY MOUTH EVERYDAY AT BEDTIME oxycodone-acetaminophen 5-325 mg tablet 1 tab PO Q6H PRN PRN (Reason: Pain) lisinopril 5 mg tablet 5 mg PO DAILY Label Comments: TAKE 1 TABLET BY MOUTH EVERY DAY Primary Care Provider: Davis Armstrong Referrals: Dwayne Mayes MD [Med Staff - Active Staff] - 3-5 Days Davis Armstrong MD [Primary Care Provider] - Disposition Disposition: Home, Self Care
--- NOTE | 2022-01-18 17:45 | ED.RN ---
3 extra depends sent with pt
== END 2022-01-18 17:57 | disposition home or self-care (01) ==
LOC: ED 17:47
PROVIDERS: Emergency Provider Emergency Medicine; PCP Family Medicine; Visit Provider Emergency Medicine
DX: T83.89XA Other specified complication of genitourinary prosthetic devices, implants and grafts, initial encounter (principal); R31.9 Hematuria, unspecified; X58.XXXA Exposure to other specified factors, initial encounter
CPT/HCPCS: A4216

== ENCOUNTER → 2022-03-28 | Outpatient (CLI) | payer MEDICARE, SELFPAY ==
[2022-03-28 12:06] LABS: Hematocrit 39.9 % (40-54); Hemoglobin 13.2 g/dL (13.0-16.5); Mean Corp Hgb Conc 33.1 g/dL (32-36); Mean Corpuscular Hgb 30.6 pg (27.0-32.0); Mean Corpuscular Volume 92.4 fL (80-94); Mean Platelet Vol. 10.8 fl (6.2-12.0); Platelet Count 233 K/mm3 (150-450); RBC Distribution Width SD 43.5 fl (35.1-43.9); Red Blood Count 4.32 M/mm3 (4.6-6.2); White Blood Count 5.3 K/mm3 (4.4-11.0)
[2022-03-28 12:50] LABS: Anion Gap 7 (5-15); BUN 18 mg/dL (7-18); BUN/Creat Ratio 25.2 RATIO (10-20); Calcium,Total 8.8 mg/dL (8.5-10.1); Chloride 107 mmol/L (98-107); Creatinine, Serum 0.71 mg/dL (0.70-1.30); EST Glomerular Filtration Rate 116 mL/min (>60); Est Glom Filt Rate - Afr Amer 140 mL/min (>60); Glucose 92 mg/dL (74-106); Potassium 3.7 mmol/L (3.5-5.1); Sodium Level 140 mmol/L (136-145)
== END | disposition home or self-care (01) ==
LOC: LAB 11:09
PROVIDERS: PCP Family Medicine; Referring Provider Urology; Visit Provider Urology
DX: Z01.818 Encounter for other preprocedural examination (principal)
CPT/HCPCS: 36415; 80048; 85027

== ENCOUNTER → 2022-04-08 | Outpatient (CLI) | payer MEDICARE, SELFPAY ==
--- NOTE | 2022-04-08 | BLB_PTH ---
PATIENT: YANET CORRIGAN LOC: [facility] U#:[id number] AGE/SX: 72/M ROOM: RE04/08/[address]: Dr. Dwayne Mayes MD : 1950 BED: DIS: 04/08/2022 SPEC #: [id number] RECD: 04/08/22 14:51 STATUS: MACK RESamara #: [id number] LATHA: 04/08/22 00:[address]: Dwayne Mayes DEPT: SURGICAL PATHOLOGY RECD BY: Cruz Elam ENTERED: 04/09/22 11:10 SP TYPE: TURB OTHR DR: Dr. Davis Armstrong MD [facility] Tissues: Urinary bladder, NOS Procedures: Surgery Specimen Level V HEADER OPERATION: Transurethral resection bladder tumor large PRE-OP DIAGNOSIS: Neoplasm of bladder TISSUE SUBMITTED: Bladder tumor MICROSCOPIC DIAGNOSIS Urinary bladder tumor, transurethral resection: Papillary urothelial carcinoma. See cancer synoptic report below. AM:sharif 04/10/2022 COMMENT BLADDER CANCER (TUR) SUMMARY Procedure: Transurethral resection of bladder tumor (TURBT) Tumor site: Not specified Histologic type: Papillary urothelial carcinoma Histologic grade: 2/3 Tumor configuration: Papillary Muscularis propria presence: Not present Lymphvascular invasion: Not identified Tumor extension: Confined to urothelium. Additional pathologic findings: Chronic inflammation. The above summary is in compliance with [employer] [place] [employer] (CAP) Cancer Protocols Checklist and [place] [employer] Committee on Cancer (AJCC), Staging Manual, 8th Ed. Reference is made to the patient's previous urinary bladder biopsy ([id number]) in which papillary urothelial carcinoma was identified. Case has been reviewed in consultation with Dr. Laurent who concurs with the above diagnosis. IDC:[email or web address] MICROSCOPIC DESCRIPTION Slides are reviewed. GROSS DESCRIPTION Received in fixative is one container labeled with the patient's name and designated bladder tumor. The specimen consists of multiple irregular fragments of light heard soft tissue that in aggregate measure 0.6 x 0.6 x 0.1 cm. The specimen is totally submitted in one cassette. / ANGELA:sharif 04/09/2022 TC:0 CPT: 74335
== END | disposition home or self-care (01) ==
LOC: LABSPEC 15:19
PROVIDERS: PCP Family Medicine; Visit Provider Urology
DX: D41.4 Neoplasm of uncertain behavior of bladder (principal)
CPT/HCPCS: 88307

== ENCOUNTER → 2022-04-23 | Outpatient (CLI) | payer MEDICARE, SELFPAY ==
[2022-04-23 12:29] LABS: Absolute Lymphocyte Count 1.03 X10^3/uL (0.83-4.51); Absolute Neutrophil Count 3.7 X10^3/uL (2.0-7.7); Basophil# 0.08 X10^3/uL; Basophil% 1.5 % (0-1); Eosinophil# 0.14 X10^3/uL; Eosinophils% 2.6 % (0-5); Hematocrit 43.9 % (40-54); Hemoglobin 14.4 g/dL (13.0-16.5); Lymphocyte # 1.03 X10^3/ul (0.83-4.51); Mean Corp Hgb Conc 32.8 g/dL (32-36); Mean Corpuscular Hgb 29.7 pg (27.0-32.0); Mean Corpuscular Volume 90.5 fL (80-94); Mean Platelet Vol. 10.4 fl (6.2-12.0); Monocyte# 0.43 X10^3/uL; Monocyte% 7.9 % (0-10); NRBC Flagged by Analyzer 0 % (0-5); Neutrophil # 3.71 X10^3/uL (2.7-7.7); Neutrophil % 68.6 % (47-70); Platelet Count 290 K/mm3 (150-450); RBC Distribution Width CV 12.4 % (11.6-14.6); RBC Distribution Width SD 41.1 fl (35.1-43.9); Red Blood Count 4.85 M/mm3 (4.6-6.2); White Blood Count 5.4 K/mm3 (4.4-11.0)
[2022-04-23 13:33] LABS: ALB/GLOB Ratio 0.9 RATIO (0.9-2.4); AST(SGOT) 22 U/L (15-37); Alanine Aminotransfer ALT/SGPT 16 U/L (16-61); Albumin, Serum 3.7 g/dL (3.2-5.0); Alkaline Phosphatase 91 U/L (45-117); Anion Gap 9 (5-15); BUN 20 mg/dL (7-18); Calcium,Total 9.4 mg/dL (8.5-10.1); Chloride 108 mmol/L (98-107); Cholesterol 149 mg/dL (200); Creatinine, Serum 0.74 mg/dL (0.70-1.30); EST Glomerular Filtration Rate 111 mL/min (>60); Est Glom Filt Rate - Afr Amer 134 mL/min (>60); Globulin 3.9 g/dL (2.2-4.2); Glucose 85 mg/dL (74-106); High Density Lipoprotein 8 mg/dL; Potassium 3.5 mmol/L (3.5-5.1); Protein, Total 7.6 g/dL (6.4-8.2); Sodium Level 140 mmol/L (136-145); Triglycerides 51 mg/dL; Very Low Density Lipoprotein 10 mg/dL (5-40)
== END | disposition home or self-care (01) ==
LOC: MFPLAB 09:34
PROVIDERS: PCP Family Medicine; Referring Provider Family Medicine; Visit Provider Family Medicine
DX: E78.5 Hyperlipidemia, unspecified (principal); R73.02 Impaired glucose tolerance (oral)
CPT/HCPCS: 36415; 80053; 80061; 83036; 85025

== ENCOUNTER → 2022-10-08 | Outpatient (CLI) | payer MEDICARE, SELFPAY ==
[2022-10-08 09:52] LABS: Bacteria 0 SEEN /hpf (None Seen); Mucous, Urine 0 SEEN /hpf (<or=2+); Red Blood Cells-Urine 0 SEEN /hpf (0-5); Squamous Epithelial Cells - UA 0 SEEN /hpf (0-5); White Blood Cells 0 SEEN /hpf (0-5)
[2022-10-08 12:20] LABS: Color, Urine Straw (Yellow); Glucose, Dipstick Normal (Normal); Ketone-Dipstick Negative (Negative); Leukocyte Esterase-Dipstick Negative /ul (Negative); Nitrite-Dipstick Negative (Negative); Occult Blood-Urine Negative /ul (Negative); Protein-Dipstick Negative (Negative); Urine Bilirubin Dipstick Negative (Negative); Urine Clarity Clear (Clear); Urine Urobilinogen Normal (Normal)
[2022-10-08 12:28] LABS: Absolute Lymphocyte Count 0.65 X10^3/uL (0.83-4.51); Absolute Neutrophil Count 3.7 X10^3/uL (2.0-7.7); Basophil# 0.04 X10^3/uL; Basophil% 0.8 % (0-1); Eosinophil# 0.08 X10^3/uL; Eosinophils% 1.6 % (0-5); Hematocrit 41.4 % (40-54); Hemoglobin 13.8 g/dL (13.0-16.5); Lymphocyte # 0.65 X10^3/ul (0.83-4.51); Lymphocyte % 13.2 % (19-41); Mean Corp Hgb Conc 33.3 g/dL (32-36); Mean Corpuscular Hgb 30.7 pg (27.0-32.0); Mean Corpuscular Volume 92.2 fL (80-94); Mean Platelet Vol. 10.9 fl (6.2-12.0); Monocyte# 0.44 X10^3/uL; Monocyte% 8.9 % (0-10); NRBC Flagged by Analyzer 0 % (0-5); Neutrophil # 3.71 X10^3/uL (2.7-7.7); Neutrophil % 75.3 % (47-70); Platelet Count 213 K/mm3 (150-450); RBC Distribution Width CV 12.4 % (11.6-14.6); RBC Distribution Width SD 42.4 fl (35.1-43.9); Red Blood Count 4.49 M/mm3 (4.6-6.2); White Blood Count 4.9 K/mm3 (4.4-11.0)
[2022-10-08 12:58] LABS: Vitamin B12 393 pg/mL (211-911)
[2022-10-08 13:14] LABS: ALB/GLOB Ratio 1.1 RATIO (0.9-2.4); AST(SGOT) 24 U/L (15-37); Alanine Aminotransfer ALT/SGPT 20 U/L (16-61); Albumin, Serum 3.8 g/dL (3.2-5.0); Alkaline Phosphatase 89 U/L (45-117); Anion Gap 5 (5-15); BUN 16 mg/dL (7-18); BUN/Creat Ratio 24.4 RATIO (10-20); Calcium,Total 8.8 mg/dL (8.5-10.1); Chloride 109 mmol/L (98-107); Cholesterol 136 mg/dL (200); Creatinine, Serum 0.66 mg/dL (0.70-1.30); EST Glomerular Filtration Rate 127 mL/min (>60); Est Glom Filt Rate - Afr Amer 154 mL/min (>60); Ferritin 187 ng/mL (26-388); Globulin 3.4 g/dL (2.2-4.2); Glucose 103 mg/dL (74-106); High Density Lipoprotein 58 mg/dL; Iron 83 ug/dL (65-175); Iron Binding Capacity,Total 349 ug/dL (250-450); Potassium 3.6 mmol/L (3.5-5.1); Protein, Total 7.2 g/dL (6.4-8.2); Sodium Level 138 mmol/L (136-145); Thyroid Stim Hormone (TSH) 2.06 uIU/mL (0.358-3.74); Triglycerides 65 mg/dL; Very Low Density Lipoprotein 13 mg/dL (5-40)
[2022-10-08 13:21] LABS: Hemoglobin A1c 6.1 % (3.8-5.6)
== END | disposition home or self-care (01) ==
LOC: MFPLAB 09:45
PROVIDERS: PCP Family Medicine; Visit Provider Family Medicine
DX: D64.9 Anemia, unspecified (principal); R73.02 Impaired glucose tolerance (oral); I10 Essential (primary) hypertension
CPT/HCPCS: 36415; 80053; 80061; 81001; 82607; 82728; 82746; 83036; 83540; 83550; 84443; 85025

== ENCOUNTER 2022-12-27 07:36 | Emergency (ER) | payer MEDICARE, SELFPAY ==
[2022-12-27 07:36] VITALS: BP 187/101; PULSE 120; RESP 16; TEMP 36.2; O2SAT 98; BMI 31.3
--- NOTE | 2022-12-27 07:46 | EKG12_ITS ---
Test Reason : Blood Pressure : / mmHG Vent. Rate : 079 BPM Atrial Rate : 079 BPM P-R Int : 152 ms QRS Dur : 092 ms QT Int : 362 ms P-R-T Axes : 062 -12 015 degrees QTc Int : 415 ms Normal sinus rhythm with sinus arrhythmia Normal ECG Confirmed by MIGUELINA SANTIAGO, [place] ([id number]), science editor GUTIERREZ SCHULER ([id number]) on 12/31/2022 8:02:23 AM Referred By: Confirmed By:MON[place]NA MCINTYRE MD
--- NOTE | 2022-12-27 08:02 | RAD_ITS ---
STUDY: X-RAY CHEST REASON FOR EXAM: Male, 72 years old. chest pain TECHNIQUE: Single AP portable view of the chest. COMPARISON: None. FINDINGS: The lungs are clear and expanded. There is no demonstrated pleural abnormality. Normal size heart. Normal mediastinum and ryder. Normal visualized pulmonary arteries. There is atherosclerotic tortuosity of the aortic arch and descending thoracic aorta. There are diffuse degenerative changes of the visualized thoracic spine. Normal visualized ribs, clavicles, and shoulders. There is no demonstrated abnormality of the visualized soft tissue structures of the upper abdomen. RAD/Chest 1 View (Portable) IMPRESSION: Degenerative changes, as described above. No demonstrated acute cardiopulmonary process. Electronically Signed: Ronen Carrillo MD at 8:46 EDT ,
[2022-12-27 08:08] LABS: Absolute Lymphocyte Count 0.82 X10^3/uL (0.83-4.51); Absolute Neutrophil Count 3.6 X10^3/uL (2.0-7.7); Basophil# 0.06 X10^3/uL; Basophil% 1.1 % (0-1); Eosinophil# 0.21 X10^3/uL; Hematocrit 40.9 % (40-54); Hemoglobin 13.5 g/dL (13.0-16.5); Lymphocyte # 0.82 X10^3/ul (0.83-4.51); Lymphocyte % 15.7 % (19-41); Mean Corpuscular Hgb 30.6 pg (27.0-32.0); Mean Corpuscular Volume 92.7 fL (80-94); Mean Platelet Vol. 10.1 fl (6.2-12.0); Monocyte# 0.54 X10^3/uL; Monocyte% 10.3 % (0-10); NRBC Flagged by Analyzer 0 % (0-5); Neutrophil # 3.58 X10^3/uL (2.7-7.7); Neutrophil % 68.5 % (47-70); Platelet Count 235 K/mm3 (150-450); RBC Distribution Width CV 12.5 % (11.6-14.6); RBC Distribution Width SD 42.6 fl (35.1-43.9); Red Blood Count 4.41 M/mm3 (4.6-6.2); White Blood Count 5.2 K/mm3 (4.4-11.0)
[2022-12-27 08:24] LABS: Anion Gap 3 (5-15); BUN 19 mg/dL (7-18); BUN/Creat Ratio 23.6 RATIO (10-20); Calcium,Total 8.6 mg/dL (8.5-10.1); Chloride 108 mmol/L (98-107); EST Glomerular Filtration Rate 100 mL/min (>60); Est Glom Filt Rate - Afr Amer 121 mL/min (>60); Estimated Creatinine Clearance 79.18 ml/min; Glucose 108 mg/dL (74-106); Potassium 3.4 mmol/L (3.5-5.1); Sodium Level 138 mmol/L (136-145); Troponin-I HS 8 pg/mL (3.0-78.0)
--- NOTE | 2022-12-27 08:34 | CT_ITS ---
STUDY: CT BRAIN WITHOUT CONTRAST REASON FOR EXAM: Male, 72 years old. pt states ringing in ears, dizziness and intermittent AVINA- checked bp Tamp; it was elevated RADIATION DOSAGE (If Supplied By Facility): CTDIvol = ( 47.06 ) mGy, DLP = ( 872.68 ) mGycm TECHNIQUE: Transaxial CT imaging of the brain was performed without administration of intravenous contrast material. Individualized dose optimization techniques were used for this CT. COMPARISON: None. FINDINGS: Normal soft tissue structures. Normal calvarium. Normal size ventricles and extra-axial spaces for the patient''s age. Normal white matter tracts of the cerebral hemispheres. Normal basal ganglia and thalami. Normal brainstem. Normal cerebellum. There is no intracranial hemorrhage. There are no findings of an acute ischemic infarction. There is mild mucous opacification of the bilateral ethmoid air cells. Mild mucosal thickening is also seen in the bilateral maxillary sinuses. The far left frontal sinus is nearly occluded with mucous material. The mastoid air cells are clear. CT/Brain/Head without Contrast IMPRESSION: 1. Normal unenhanced CT scan of the brain. 2. Paranasal sinusitis Electronically Signed: Ronen Carrillo MD at 9:07 EDT ,
--- NOTE | 2022-12-27 08:35 | EDS_ITS ---
HPI History of Present Illness Chief Complaint: Hypertension Narrative Narrative: 2-year-old male presenting with elevated blood pressure. He states he was not feeling very well this morning and he told his son this is a kidney emergency room. He checked his blood pressure and noticed it was elevated. He states last time that he checked it was about a week ago and his systolic blood pressure was 130 at that time. He states he has been taking his blood pressure medicine which includes lisinopril 10 mg as well as amlodipine 10 mg. He states he does eat a lot of salted peanuts and states he eats these every day. He states he felt a little bit lightheaded today. 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 He states it is worse over the last few days and feels like he is walking into a tunnel. He has a headache which is not acute onset or thunderclap. Denies any visual complaints. No chest pain or shortness of breath. No fever or chills. No nausea or vomiting. He is walking with a stable gait. Not on any blood thinners. [facility] Medical History Arthritis Back pain Bladder cancer Chronic cough Diabetes Gastric reflux GERD (gastroesophageal reflux disease) High cholesterol Hypertension Hypertension Kidney stone Kidney stones Non-smoker Wears dentures Wears glasses Home Medications atorvastatin 40 mg tablet 40 mg PO DAILY HLD 01/21/21 [History Last Taken 01/15/22] lisinopril 5 mg tablet 5 mg PO DAILY HTN 12/02/21 [History Last Taken 01/16/22 05:00] garlic 300 mg tablet 300 mg PO DAILY SUPPLEMENT 12/12/21 [History Last Taken 01/15/22] zinc 50 mg capsule 50 mg PO DAILY SUPPLEMENT 12/12/21 [History Last Taken 04/07] atorvastatin 40 mg tablet 40 mg PO QPM CHOLESTEROL 01/16/22 [History Last Taken 01/15/22] ciprofloxacin HCl 500 mg tablet (Cipro) 500 mg PO BID #10 tabs 01/16/22 [Rx Last Taken Unknown] lisinopril 5 mg tablet 5 mg PO DAILY BLOOD PRESSURE 01/16/22 [History Last Taken 01/16/22] oxycodone-acetaminophen 5 mg-325 mg tablet 1 tab PO Q6H PRN PRN Pain 01/16/22 [History Last Taken Unknown] lisinopril 20 mg tablet 20 mg PO DAILY #30 tabs 12/27/22 [Rx Last Taken Unknown] Allergy/AdvReac Type Severity Reaction Status Date / Time Penicillins Allergy Other Verified 12/27/22 07:38 Surgical History Hx of cystoscopy Hx of hernia repair Social History Smoking Status: Never smoker ROS ROS ED Constitutional Constitutional ED: Denies chills, fever(s) or sweats Eyes Eyes: Denies change in vision ENT ENT ED: Reports other Details: Tinnitus Cardiovascular Cardiovascular: Denies chest pain or palpitations Respiratory/Chest Respiratory/Chest: Denies cough or dyspnea Gastrointestinal Gastrointestinal: Denies abdominal pain, nausea or vomiting Genitourinary Genitourinary ED: Denies dysuria or hematuria Musculoskeletal Musculoskeletal: Denies arthralgias or back pain Integumentary Denies abscess Neurologic Neurologic: Reports headache(s) Psychiatric Psychiatric: Denies anxiety or depression EXAM Physical Exam Const Vital Signs: 12/27/22 07:36 12/27/22 07:46 12/27/22 07:46 Temperature 97.2 F L Temperature Source Temporal Pulse Rate 120 H Respiratory Rate 16 Respiratory Effort Normal Non-Labored Respiratory Pattern Normal Blood Pressure 187/101 H Blood Pressure Mean 129 Pulse Ox 98 Oxygen Delivery Method Room Air 12/27/22 09:36 12/27/22 11:00 Temperature Temperature Source Pulse Rate 92 Respiratory Rate 26 H Respiratory Effort Respiratory Pattern Blood Pressure 131/83 H 141/86 H Blood Pressure Mean 99 104 Pulse Ox 99 Oxygen Delivery Method Room Air Positive well nourished General Appearance ED: NAD HEENT Reports moist mucous membranes Eyes PERRL and EOMs intact bilaterally General Eye ED: Negative for pale conjunctiva or scleral icterus Neck no lymphadenopathy Chest Wall inspection of chest normal and palpation of chest normal Resp normal respiratory effort and clear to auscultation bilaterally Auscultation: Negative for rales, rhonchi or wheezes Cardio regular rate Rate: tachycardic GI normal to inspection, nondistended, normoactive bowel sounds Extremity normal to inspection General Extremety ED: Negative for edema or tenderness General Extremity: Negative for edema Neuro oriented x3 and CN's II-XII intact bilaterally Sensorium / Orientation: alert Motor Exam: strength 5/5 throughout Psych mental status grossly normal Skin no rashes or lesions noted and no wounds MDM MDM MDM Narrative Medical decision making narrative: Patient presenting with elevated blood pressure with mild headache and increasing tinnitus as well as generally not feeling well. He states his blood pressure was 130 systolic last week and he believes that was Friday of last week. No visual complaints. No chest pain or shortness of breath. Heart rate noted to be 120 on arrival. Differential includes hypertensive emergency, intracranial hemorrhage, vertigo, dehydration, electrolyte abnormalities, endorgan damage. CBC will be obtained to assess white blood cell count, hemoglobin, platelets. BMP to assess renal function electrolytes. High-sen sitivity troponin EKG to assess for ischemia/dysrhythmia. Chest x-ray to rule out pneumonia. Patient was given 10 mg of hydralazine to improve his blood pressure. We will recheck his blood pressure after this is given. CT brain will be obtained given his neurologic symptoms. CBC shows normal white blood cell count of 5.2. Hemoglobin stable 13.5. Platelets normal 235. Creatinine normal at 0.8. Calcium slightly low at 3.4 otherwise BMP is unremarkable. High-sensitivity troponin is 8. EKG shows a normal sinus rhythm with a ventricular rate of 79 bpm without evidence of ischemia on my interpretation. Chest x-ray my interpretation shows no acute process. I did obtain a D-dimer because the patient states he was having a cough and shortness of breath and this was negative as age-adjusted. CT brain was obtained and is negative. Pressure now is 141/86. I spoke with Dr. Armstrong who recommended increasing the patient's lisinopril to 20 mg and continue his amlodipine at 10 mg. He is to keep a blood pressure diary. He is to follow-up with him as an outpatient. Impression: 1. Headache 2. Lightheadedness 3. Tinnitus 4. Hypertension Lab Data Attestation: I reviewed the patient's lab results. Labs: Laboratory Results - last 24 hr 12/27/22 07:58 WBC 5.2 RBC 4.41 L Hgb 13.5 Hct 40.9 MCV 92.7 MCH 30.6 MCHC 33.0 RDW Std Deviation 42.6 RDW Coeff of Kim 12.5 Plt Count 235 MPV 10.1 Immature Gran % (Auto) 0.400 Neut % (Auto) 68.5 Lymph % (Auto) 15.7 L [place] % (Auto) 10.3 H Eos % (Auto) 4.0 Baso % (Auto) 1.1 H Absolute Neuts (auto) 3.6 Absolute Lymphs (auto) 0.82 L Nucleated RBC % 0 D-Dimer Quant (PE/DVT) 0.56 H* Sodium 138 Potassium 3.4 L Chloride 108 H Carbon Dioxide 27.0 Anion Gap 3 L BUN 19 H Creatinine 0.80 Estim Creat Clear Calc 79.18 Est GFR (MDRD) Af Amer 121 Est GFR (MDRD) Non-Af 100 BUN/Creatinine Ratio 23.6 H Glucose 108 H Calcium 8.6 Troponin I High Sens 8 Radiography Diagnostic Testing: Clinical Impression(s) from Imaging Studies Chest X-Ray 12/27/22 08:02 IMPRESSION: Degenerative changes, as described above. No demonstrated acute cardiopulmonary process. Electronically Signed: Ronen Carrillo MD at 8:46 EDT Reading Location ID and State: [address] [place] [address] , Service support , Brain CT 12/27/22 08:34 IMPRESSION: 1. Normal unenhanced CT scan of the brain. 2. Paranasal sinusitis Electronically Signed: Ronen Carrillo MD at 9:07 EDT , Discharge Plan Triage Chief Complaint: Hypertension ED Provider: Dane Sterling Dx/Rx/DC Orders Instructions: ED Hypertension, Established Prescriptions: New lisinopril 20 mg tablet 20 mg PO DAILY Qty: 30 0RF No Action atorvastatin 40 mg tablet 40 mg PO DAILY lisinopril 5 mg tablet 5 mg PO DAILY Patient Comments: TAKE 1 TABLET BY MOUTH EVERY DAY garlic 300 mg Tablet 300 mg PO DAILY zinc 50 mg Capsule 50 mg PO DAILY ciprofloxacin HCl [Cipro] 500 mg tablet 500 mg PO BID Qty: 10 0RF atorvastatin 40 mg tablet 40 mg PO QPM Patient Comments: TAKE 1 TABLET BY MOUTH EVERYDAY AT BEDTIME oxycodone-acetaminophen 5-325 mg tablet 1 tab PO Q6H PRN PRN (Reason: Pain) lisinopril 5 mg tablet 5 mg PO DAILY Patient Comments: TAKE 1 TABLET BY MOUTH EVERY DAY Primary Care Provider: Davis Armstrong Referrals: Davis Armstrong MD [Primary Care Provider] - Disposition Disposition: Home, Self Care Discharge Date/Time: 12/27/22 11:12
[2022-12-27] MEDS: hydrALAZINE 20 MG/ML Vial 10 MG IV (08:39)
[2022-12-27 08:57] LABS: D-Dimer Quantitative (DVT/PE) 0.56 FEU/ug/m (0.27-0.49)
[2022-12-27 09:36] VITALS: BP 131/83; PULSE 92; RESP 26; O2SAT 99
[2022-12-27 11:00] VITALS: BP 141/86
== END 2022-12-27 11:12 | disposition home or self-care (01) ==
PROVIDERS: Emergency Provider Student in an Organized Health Care Education/Training Program; PCP Family Medicine; Visit Provider Student in an Organized Health Care Education/Training Program
DX: R51.9 Headache, unspecified (principal); R42 Dizziness and giddiness; H93.19 Tinnitus, unspecified ear; I10 Essential (primary) hypertension
CPT/HCPCS: 70450; 71045; 80048; 84484; 85025; 85379; 93005; 96374; 99284; A4216

== ENCOUNTER → 2023-01-08 | Outpatient (CLI) | payer MEDICARE, SELFPAY ==
[2023-01-08 13:20] LABS: PSA,Total - Annual Screen 1.48 ng/mL (0.00-4.00)
== END | disposition home or self-care (01) ==
LOC: MFPLAB 10:07
PROVIDERS: PCP Family Medicine; Visit Provider Family Medicine
DX: Z12.5 Encounter for screening for malignant neoplasm of prostate (principal)
CPT/HCPCS: 36415; 84153; G0103

== ENCOUNTER → 2023-05-08 | Outpatient (CLI) | payer MEDICARE, SELFPAY | END | disposition home or self-care (01) | LOC: LAB.FUTURE 10:00 | PROVIDERS: PCP Family Medicine; Visit Provider Urology | DX: Z12.5 Encounter for screening for malignant neoplasm of prostate (principal) ==

== ENCOUNTER → 2023-05-08 | Outpatient (CLI) | payer MEDICARE, SELFPAY ==
[2023-05-08 10:29] LABS: Absolute Lymphocyte Count 0.83 X10^3/uL (0.83-4.51); Absolute Neutrophil Count 6.4 X10^3/uL (2.0-7.7); Basophil# 0.06 X10^3/uL; Basophil% 0.7 % (0-1); Eosinophil# 0.09 X10^3/uL; Eosinophils% 1.1 % (0-5); Hemoglobin 13.9 g/dL (13.0-16.5); Lymphocyte # 0.83 X10^3/ul (0.83-4.51); Lymphocyte % 10.3 % (19-41); Mean Corp Hgb Conc 33.9 g/dL (32-36); Mean Corpuscular Volume 91.5 fL (80-94); Mean Platelet Vol. 9.9 fl (6.2-12.0); Monocyte# 0.67 X10^3/uL; Monocyte% 8.3 % (0-10); NRBC Flagged by Analyzer 0 % (0-5); Neutrophil # 6.41 X10^3/uL (2.7-7.7); Neutrophil % 79.2 % (47-70); Platelet Count 265 K/mm3 (150-450); RBC Distribution Width CV 12.9 % (11.6-14.6); RBC Distribution Width SD 43.3 fl (35.1-43.9); Red Blood Count 4.48 M/mm3 (4.6-6.2); White Blood Count 8.1 K/mm3 (4.4-11.0)
[2023-05-08 10:33] LABS: Color, Urine Straw (Yellow); Glucose, Dipstick Normal (Normal); Ketone-Dipstick Negative (Negative); Leukocyte Esterase-Dipstick Negative /ul (Negative); Nitrite-Dipstick Negative (Negative); Occult Blood-Urine 10 /ul (Negative); Protein-Dipstick 15 mg/dl (Negative); Specific Gravity, Urine 1.015 (1.002-1.030); Urine Bilirubin Dipstick Negative (Negative); Urine Clarity Clear (Clear); Urine Urobilinogen Normal (Normal)
[2023-05-08 11:19] LABS: Hemoglobin A1c 6.3 % (3.8-5.6)
[2023-05-08 11:26] LABS: ALB/GLOB Ratio 1.1 RATIO (0.9-2.4); AST(SGOT) 17 U/L (15-37); Alanine Aminotransfer ALT/SGPT 18 U/L (16-61); Albumin, Serum 3.9 g/dL (3.2-5.0); Alkaline Phosphatase 99 U/L (45-117); Anion Gap 3 (5-15); BUN 19 mg/dL (7-18); BUN/Creat Ratio 26.6 RATIO (10-20); Calcium,Total 9.1 mg/dL (8.5-10.1); Chloride 109 mmol/L (98-107); Cholesterol 139 mg/dL (200); Creatinine, Serum 0.71 mg/dL (0.70-1.30); EST Glomerular Filtration Rate 115 mL/min (>60); Est Glom Filt Rate - Afr Amer 139 mL/min (>60); Globulin 3.4 g/dL (2.2-4.2); Glucose 111 mg/dL (74-106); High Density Lipoprotein 58 mg/dL; Potassium 3.8 mmol/L (3.5-5.1); Protein, Total 7.3 g/dL (6.4-8.2); Sodium Level 136 mmol/L (136-145); Thyroid Stim Hormone (TSH) 2.31 uIU/mL (0.358-3.74); Triglycerides 93 mg/dL; Very Low Density Lipoprotein 19 mg/dL (5-40)
== END | disposition home or self-care (01) ==
LOC: LAB 09:47
PROVIDERS: PCP Family Medicine; Referring Provider Urology; Visit Provider Urology
DX: I10 Essential (primary) hypertension (principal); R73.02 Impaired glucose tolerance (oral); Z12.5 Encounter for screening for malignant neoplasm of prostate
CPT/HCPCS: 36415; 80053; 80061; 81002; 83036; 83735; 84443; 85025

== ENCOUNTER → 2023-09-10 | Outpatient (CLI) | payer MEDICARE, SELFPAY ==
[2023-09-10 08:50] LABS: Bacteria 0 SEEN /hpf (None Seen); Mucous, Urine 0 SEEN /hpf (<or=2+); Red Blood Cells-Urine 0 SEEN /hpf (0-5); Squamous Epithelial Cells - UA 0 SEEN /hpf (0-5); White Blood Cells 0 SEEN /hpf (0-5)
[2023-09-10 10:18] LABS: Absolute Lymphocyte Count 0.86 X10^3/uL (0.83-4.51); Absolute Neutrophil Count 3.8 X10^3/uL (2.0-7.7); Basophil# 0.05 X10^3/uL; Basophil% 0.9 % (0-1); Eosinophil# 0.19 X10^3/uL; Eosinophils% 3.6 % (0-5); Hematocrit 40.3 % (40-54); Hemoglobin 13.4 g/dL (13.0-16.5); Lymphocyte # 0.86 X10^3/ul (0.83-4.51); Lymphocyte % 16.1 % (19-41); Mean Corp Hgb Conc 33.3 g/dL (32-36); Mean Corpuscular Hgb 30.4 pg (27.0-32.0); Mean Corpuscular Volume 91.4 fL (80-94); Mean Platelet Vol. 10.4 fl (6.2-12.0); Monocyte# 0.45 X10^3/uL; Monocyte% 8.4 % (0-10); NRBC Flagged by Analyzer 0 % (0-5); Neutrophil # 3.76 X10^3/uL (2.7-7.7); Neutrophil % 70.6 % (47-70); Platelet Count 245 K/mm3 (150-450); RBC Distribution Width CV 12.4 % (11.6-14.6); RBC Distribution Width SD 41.7 fl (35.1-43.9); Red Blood Count 4.41 M/mm3 (4.6-6.2); White Blood Count 5.3 K/mm3 (4.4-11.0)
[2023-09-10 10:20] LABS: Color, Urine Yellow (Yellow); Glucose, Dipstick Normal (Normal); Ketone-Dipstick Negative (Negative); Leukocyte Esterase-Dipstick Negative /ul (Negative); Nitrite-Dipstick Negative (Negative); Occult Blood-Urine Negative /ul (Negative); Protein-Dipstick Negative (Negative); Urine Bilirubin Dipstick Negative (Negative); Urine Clarity Clear (Clear); Urine Urobilinogen Normal (Normal)
[2023-09-10 11:22] LABS: ALB/GLOB Ratio 1.1 RATIO (0.9-2.4); AST(SGOT) 19 U/L (15-37); Alanine Aminotransfer ALT/SGPT 18 U/L (16-61); Albumin, Serum 3.7 g/dL (3.2-5.0); Alkaline Phosphatase 85 U/L (45-117); Anion Gap 7 (5-15); BUN 20 mg/dL (7-18); BUN/Creat Ratio 23.3 RATIO (10-20); Calcium,Total 9.1 mg/dL (8.5-10.1); Chloride 108 mmol/L (98-107); Cholesterol 148 mg/dL (200); Creatinine, Serum 0.86 mg/dL (0.70-1.30); EST Glomerular Filtration Rate 93 mL/min (>60); Est Glom Filt Rate - Afr Amer 113 mL/min (>60); Globulin 3.5 g/dL (2.2-4.2); Glucose 105 mg/dL (74-106); High Density Lipoprotein 60 mg/dL; Magnesium 2.1 mg/dL (1.6-2.6); Potassium 3.8 mmol/L (3.5-5.1); Protein, Total 7.2 g/dL (6.4-8.2); Sodium Level 138 mmol/L (136-145); Triglycerides 68 mg/dL; Very Low Density Lipoprotein 14 mg/dL (5-40)
== END | disposition home or self-care (01) ==
LOC: MTLAB 08:46
PROVIDERS: PCP Family Medicine; Referring Provider Family Medicine; Visit Provider Family Medicine
DX: I10 Essential (primary) hypertension (principal); R73.02 Impaired glucose tolerance (oral)
CPT/HCPCS: 36415; 80053; 80061; 81001; 83036; 83735; 85025

== ENCOUNTER → 2024-01-14 | Outpatient (CLI) | payer MEDICARE, SELFPAY | END | disposition home or self-care (01) | LOC: MFPLAB 09:56 | PROVIDERS: PCP Family Medicine; Referring Provider Family Medicine; Visit Provider Family Medicine | DX: Z12.5 Encounter for screening for malignant neoplasm of prostate (principal) | CPT/HCPCS: 36415; 84153; G0103 ==

== ENCOUNTER → 2024-05-19 | Outpatient (CLI) | payer MEDICARE, SELFPAY ==
[2024-05-19 15:18] LABS: Absolute Lymphocyte Count 0.85 X10^3/uL (0.83-4.51); Basophil# 0.06 X10^3/uL; Basophil% 1.1 % (0-1); Eosinophil# 0.12 X10^3/uL; Eosinophils% 2.2 % (0-5); Hematocrit 38.2 % (40-54); Hemoglobin 12.7 g/dL (13.0-16.5); Lymphocyte # 0.85 X10^3/ul (0.83-4.51); Lymphocyte % 15.5 % (19-41); Mean Corp Hgb Conc 33.2 g/dL (32-36); Mean Corpuscular Hgb 30.8 pg (27.0-32.0); Mean Corpuscular Volume 92.7 fL (80-94); Mean Platelet Vol. 10.8 fl (6.2-12.0); Monocyte# 0.41 X10^3/uL; Monocyte% 7.5 % (0-10); NRBC Flagged by Analyzer 0 % (0-5); Neutrophil # 4.04 X10^3/uL (2.7-7.7); Neutrophil % 73.3 % (47-70); Platelet Count 256 K/mm3 (150-450); RBC Distribution Width CV 12.7 % (11.6-14.6); RBC Distribution Width SD 43.1 fl (35.1-43.9); Red Blood Count 4.12 M/mm3 (4.6-6.2); White Blood Count 5.5 K/mm3 (4.4-11.0)
[2024-05-19 15:48] LABS: Microalbumin,Random Urine 28.6 mg/L (NO RANGE EST.)
[2024-05-19 19:41] LABS: ALB/GLOB Ratio 1.5 RATIO (0.9-2.4); AST(SGOT) 28 U/L (<=37); Alanine Aminotransfer ALT/SGPT 16 U/L (<=46); Albumin, Serum 4.1 g/dL (3.4-4.8); Alkaline Phosphatase 93 U/L (40-129); Anion Gap 13 (5-15); BUN 18 mg/dL (4-19); BUN/Creat Ratio 25.9 RATIO (10-20); Carbon Dioxide 19.7 mmol/L (21.0-32.0); Chloride 106 mmol/L (98-108); Cholesterol 126 mg/dL (<=200); Creatinine, Serum 0.69 mg/dL (0.70-1.20); EST Glomerular Filtration Rate 98 (>60); Globulin 2.8 g/dL (2.2-4.2); Glucose 89 mg/dL (70-99); High Density Lipoprotein 54 mg/dL; Low Density Lipoprotein Calc. 61 mg/dL; Magnesium 1.9 mg/dL (1.5-2.2); Potassium 3.9 mmol/L (3.3-5.1); Protein, Total 6.8 g/dL (5.9-8.4); Sodium Level 139 mmol/L (133-145); Total Bilirubin 0.61 mg/dL (0.00-1.30); Triglycerides 52 mg/dL; Very Low Density Lipoprotein 10 mg/dL (5-40); cholesterol:hdl ratio screen 2.32
[2024-05-19 19:57] LABS: Hemoglobin A1c 6.4 % (<=5.6)
== END | disposition home or self-care (01) ==
LOC: MFPLAB 11:51
PROVIDERS: PCP Family Medicine; Referring Provider Family Medicine; Visit Provider Family Medicine
DX: I10 Essential (primary) hypertension (principal); R73.02 Impaired glucose tolerance (oral); E78.5 Hyperlipidemia, unspecified
CPT/HCPCS: 36415; 80053; 80061; 82043; 83036; 83735; 84443; 85025

== ENCOUNTER → 2024-05-26 | Outpatient (CLI) | payer MEDICARE, SELFPAY ==
[2024-05-26 10:51] LABS: Ferritin 273 ng/mL (37-417); Iron 112 ug/dL (65-175); Iron Binding Capacity,Total 299 ug/dL (250-450); Iron Binding Capacity,Unsat 187 ug/dL (228-428); Vitamin B12 651 pg/mL (180-914)
== END | disposition home or self-care (01) ==
LOC: MFPLAB 09:21
PROVIDERS: PCP Family Medicine; Referring Provider Family Medicine; Visit Provider Family Medicine
DX: D64.9 Anemia, unspecified (principal)
CPT/HCPCS: 36415; 82607; 82728; 83540; 83550

== ENCOUNTER 2024-07-23 07:04 | Emergency (ER) | payer MEDICARE, SELFPAY ==
[2024-07-23 07:05] VITALS: BP 155/90; PULSE 99; RESP 19; TEMP 36.9; O2SAT 98; BMI 31.6
--- NOTE | 2024-07-23 07:09 | EX.ED.DYSGE1 ---
HPI History of Present Illness Chief Complaint: General Illness Informant: patient Onset/Context/Timing Onset: Yesterday Context: Gradual Onset Timing: Continuous Quality: Shaking Location: Generalized Worsened by: Nothing Relieved by: Rest Narrative Narrative: Patient presents with not feeling well that began last night. Patient states he was having some shaking chills last night. Patient states this got better with rest. Patient states nothing seems to make it worse. Patient states he has been having a cough with some white sputum. Patient denies any shortness of breath. Patient denies any chest pain. Patient denies any sore throat or rhinorrhea. Patient denies any dysuria or hematuria. [facility] Medical History Bladder cancer Kidney stones GERD (gastroesophageal reflux disease) Hypertension Wears dentures Wears glasses Diabetes Arthritis High cholesterol Back pain Gastric reflux Non-smoker Chronic cough Hypertension Kidney stone Home Medications ?Medication ?Instructions ?Recorded ?Last Taken ?Type atorvastatin 40 mg tablet 40 mg PO DAILY HLD 01/21/21 01/15/22 History lisinopril 5 mg tablet 5 mg PO DAILY HTN 12/02/21 01/16/22 05:00 History garlic 300 mg tablet 300 mg PO DAILY SUPPLEMENT 12/12/21 01/15/22 History zinc 50 mg capsule 50 mg PO DAILY SUPPLEMENT 12/12/21 01/15/22 History atorvastatin 40 mg tablet 40 mg PO QPM CHOLESTEROL 01/16/22 01/15/22 History lisinopril 5 mg tablet 5 mg PO DAILY BLOOD PRESSURE 01/16/22 01/16/22 History oxycodone-acetaminophen 5 mg-325 1 tab PO Q6H PRN PRN Pain 01/16/22 Unknown History mg tablet lisinopril 20 mg tablet 20 mg PO DAILY #30 tabs 12/27/22 Unknown Rx ciprofloxacin HCl 500 mg tablet 500 mg PO BID #10 tabs 07/23/24 Unknown Rx (Cipro) Allergy/AdvReac Type Severity Reaction Status Date / Time Penicillins Allergy Other Verified 07/23/24 07:08 Surgical History Hx of hernia repair Hx of cystoscopy Social History Smoking Status: Never smoker ROS ROS ED Constitutional Constitutional ED: Reports chills and subjective Eyes Eyes: Denies blurry vision or change in vision ENT ENT ED: Denies rhinorrhea or sore throat Cardiovascular Cardiovascular: Denies chest pain or palpitations Respiratory/Chest Respiratory/Chest: Reports cough and sputum; Denies dyspnea Gastrointestinal Gastrointestinal: Denies nausea or vomiting Genitourinary Genitourinary ED: Denies dysuria or hematuria Musculoskeletal Musculoskeletal: Denies back pain or neck pain Integumentary Denies abscess or rash Neurologic Neurologic: Denies headache(s) or weakness Allergic/Immunologic Allergic/Immunologic ED: Denies mouth swelling or urticaria EXAM Physical Exam Const Vital Signs: 07/23/24 07:05 07/23/24 07:21 07/23/24 07:32 Temperature 98.5 F 98.5 F Temperature Source Oral Temporal Pulse Rate 99 99 Respiratory Rate 19 H 18 Respiratory Effort Normal Non-Labored Respiratory Pattern Normal Blood Pressure 155/90 H 155/90 H Blood Pressure Mean 111 111 Pulse Ox 98 98 Oxygen Delivery Method Room Air Room Air 07/23/24 09:23 07/23/24 10:48 Temperature Temperature Source Pulse Rate 80 Respiratory Rate 18 Respiratory Effort Respiratory Pattern Blood Pressure 108/69 139/80 H Blood Pressure Mean 82 99 Pulse Ox 97 98 Oxygen Delivery Method Room Air Positive well nourished and well developed General Appearance ED: well developed and NAD HEENT Reports moist mucous membranes Neck supple and no JVD Resp normal respiratory effort and clear to auscultation bilaterally Cardio regular rate and regular rhythm GI non-tender and non-distended Palpation: soft Neuro oriented x3, CN's II-XII intact bilaterally and no sensory deficits noted Sensorium / Orientation: alert Motor Exam: strength 5/5 throughout Psych mental status grossly normal MDM MDM MDM Narrative Medical decision making narrative: Differential diagnosis includes pneumonia, bronchitis, urinary tract infection, cardiac dysrhythmia, cardiac ischemia, electrolyte abnormality, and a viral illness. EKG will be obtained to assess for cardiac dysrhythmia and cardiac ischemia. Chest x-ray will be obtained to assess for pneumonia and bronchitis. CBC will be obtained to assess for leukocytosis and anemia. Basic metabolic profile will be obtained to assess for electrolyte abnormality and renal function. Urinalysis will be obtained to assess for urinary tract infection and hematuria. High-sensitivity troponin will be obtained to assess for cardiac ischemia. COVID-19, influenza, and RSV PCR will be obtained to assess for viral illness. History & Record Review Additional record(s) reviewed:: Prior labs Lab Data Attestation: I reviewed the patient's lab results. Lab results narrative: CBC was reviewed and was within normal limits. Basic metabolic profile was reviewed and was essentially within normal limits. Initial high-sensitivity troponin was reviewed and was slightly elevated at 36. 2-hour repeat high-sensitivity troponin was reviewed and was 33. Urinalysis was reviewed. Leukocyte esterase was 25. There are 10-25 white blood cells and 1+ bacteria. COVID-19 PCR was reviewed and was negative. Influenza PCR was reviewed and was negative for influenza A and influenza B. RSV PCR was reviewed and was negative. Labs: Laboratory Results - last 24 hr 07/23/24 07/23/24 07/23/24 07:30 07:35 09:30 WBC 10.7 RBC 4.31 L Hgb 13.8 Hct 40.1 MCV 93.0 MCH 32.0 MCHC 34.4 RDW Std Deviation 45.2 H RDW Coeff of Kim 13.3 Plt Count 224 MPV 10.4 Immature Gran % (Auto) 0.600 Neut % (Auto) 86.6 H Lymph % (Auto) 4.0 L [place] % (Auto) 8.2 Eos % (Auto) 0.2 Baso % (Auto) 0.4 Absolute Neuts (auto) 9.3 H Absolute Lymphs (auto) 0.43 L Nucleated RBC % 0 Sodium 136 Potassium 3.9 Chloride 102 Carbon Dioxide 23.1 Anion Gap 11 BUN 19 Creatinine 0.95 Estim Creat Clear Calc 74.77 Est GFR (MDRD) Non-Af 84 BUN/Creatinine Ratio 19.5 Glucose 100 H Calcium 9.1 Troponin T High Sens 36 H Troponin T Hi Sens 2 Hr 33 H Urine Color Yellow Urine Clarity Clear Urine pH 6.5 Ur Specific [place] 1.010 Urine Protein 100 H Urine Glucose (UA) Normal Urine Ketones 5 H Urine Occult Blood 50 H Urine Nitrite Negative Urine Bilirubin Negative Urine Urobilinogen 1 H Ur Leukocyte Esterase 25 H Urine RBC 5-10 SEEN Urine WBC 10-25 SEEN Ur Squamous Epith Cells 0 SEEN Urine Bacteria 1+ Urine Mucus 0 SEEN Radiography Chest X-Ray - ED: 2 View, Read by ED Physician, Read by Radiologist and No Acute Disease Diagnostic Testing: Clinical Impression(s) from Imaging Studies Chest X-Ray 07/23/24 07:45 IMPRESSION: No evidence of acute disease. Reading Location: [facility] PA and lateral chest x-ray was obtained. There are 2 views. On my independent interpretation, lung rea are clear. There is normal cardiac silhouette. Bony thorax is normal. There is no acute process noted. Radiologist also interpreted the x-ray and agrees. EKG Initial EKG: Attestation: I personally reviewed and interpreted this EKG as follows: Interpretation: Sinus Rhythm (With occasional PACs with a rate of 87) and No Acute Injury Pattern Comments: EKG was obtained. On my independent interpretation, it showed a normal sinus rhythm with occasional PACs with a rate of 87. [place] interval, QRS interval, and QTc intervals were all normal. [place] was normal. There are no acute ST or T wave changes. Prior EKG tracings: available for review Prior: Unchanged (12/27/2022) Treatment and Re-Evaluation :: Patient was advised of his findings. Patient was given a dose of Rocephin here. Urine culture was ordered. Patient was given a prescription for Cipro. Patient was instructed to drink plenty of fluids. Patient was instructed to follow-up with his primary care physician in 5 to 7 days. Patient was instructed to return if worse in any way. Patient understood and was agreeable with the plan. All questions were answered. Discharge Plan Triage Chief Complaint: General Illness ED Provider: Osmany Evans Dx/Rx/DC Orders Clinical Impression: Urinary tract infection, Hypertension Instructions: ED Bladder Infection, Male (Adult) Prescriptions: Continued ciprofloxacin HCl [Cipro] 500 mg tablet 500 mg PO BID Qty: 10 0RF No Action atorvastatin 40 mg tablet 40 mg PO DAILY lisinopril 5 mg tablet 5 mg PO DAILY Patient Comments: TAKE 1 TABLET BY MOUTH EVERY DAY garlic 300 mg Tablet 300 mg PO DAILY zinc 50 mg Capsule 50 mg PO DAILY atorvastatin 40 mg tablet 40 mg PO QPM Patient Comments: TAKE 1 TABLET BY MOUTH EVERYDAY AT BEDTIME oxycodone-acetaminophen 5-325 mg tablet 1 tab PO Q6H PRN PRN (Reason: Pain) lisinopril 5 mg tablet 5 mg PO DAILY Patient Comments: TAKE 1 TABLET BY MOUTH EVERY DAY lisinopril 20 mg tablet 20 mg PO DAILY Qty: 30 0RF Primary Care Provider: Davis Armstrong Referrals: Davis Armstrong MD [Primary Care Provider] - 5-7 Days Print Language: Occitan Disposition Disposition: Home, Self Care
[2024-07-23 07:32] VITALS: BP 155/90; PULSE 99; RESP 18; TEMP 36.9; O2SAT 98
[2024-07-23 07:40] LABS: Mucous, Urine 0 SEEN /hpf (<or=2+); Squamous Epithelial Cells - UA 0 SEEN /hpf (0-5)
--- NOTE | 2024-07-23 07:45 | RAD_ITS ---
PROCEDURE: CHEST PA AND LATERAL 07/23/2024 REASON FOR EXAM: COUGH TECHNIQUE: Frontal and lateral views of the chest. COMPARISON: 12/27/2022 FINDINGS: The lungs appear clear. Pulmonary vascularity appears within limits. No pleural effusion. The cardiac and mediastinal contours appear within limits. RAD/Chest PA and Lateral IMPRESSION: No evidence of acute disease. Reading Location: [id number]
[2024-07-23 07:46] LABS: Absolute Lymphocyte Count 0.43 X10^3/uL (0.83-4.51); Absolute Neutrophil Count 9.3 X10^3/uL (2.0-7.7); Basophil# 0.04 X10^3/uL; Basophil% 0.4 % (0-1); Eosinophil# 0.02 X10^3/uL; Eosinophils% 0.2 % (0-5); Hematocrit 40.1 % (40-54); Hemoglobin 13.8 g/dL (13.0-16.5); Lymphocyte # 0.43 X10^3/ul (0.83-4.51); Mean Corp Hgb Conc 34.4 g/dL (32-36); Mean Platelet Vol. 10.4 fl (6.2-12.0); Monocyte# 0.88 X10^3/uL; Monocyte% 8.2 % (0-10); NRBC Flagged by Analyzer 0 % (0-5); Neutrophil # 9.31 X10^3/uL (2.7-7.7); Neutrophil % 86.6 % (47-70); POSITIVE DIFFERENTIAL YES; Platelet Count 224 K/mm3 (150-450); RBC Distribution Width CV 13.3 % (11.6-14.6); RBC Distribution Width SD 45.2 fl (35.1-43.9); Red Blood Count 4.31 M/mm3 (4.6-6.2); White Blood Count 10.7 K/mm3 (4.4-11.0)
[2024-07-23 08:13] LABS: Color, Urine Yellow (Yellow); Glucose, Dipstick Normal (Normal); Ketone-Dipstick 5 mg/dl (Negative); Leukocyte Esterase-Dipstick 25 /ul (Negative); Nitrite-Dipstick Negative (Negative); Occult Blood-Urine 50 /ul (Negative); Protein-Dipstick 100 mg/dl (Negative); Urine Bilirubin Dipstick Negative (Negative); Urine Clarity Clear (Clear); Urine Urobilinogen 1 mg/dl (Normal); Urine pH 6.5 (5.0 - 8.0)
[2024-07-23 08:31] LABS: Anion Gap 11 (5-15); BUN 19 mg/dL (4-19); BUN/Creat Ratio 19.5 RATIO (10-20); Calcium,Total 9.1 mg/dL (7.6-11.0); Carbon Dioxide 23.1 mmol/L (21.0-32.0); Chloride 102 mmol/L (98-108); Creatinine, Serum 0.95 mg/dL (0.70-1.20); EST Glomerular Filtration Rate 84 (>60); Estimated Creatinine Clearance 74.77 ml/min (50-250); Glucose 100 mg/dL (70-99); Potassium 3.9 mmol/L (3.3-5.1); Sodium Level 136 mmol/L (133-145)
[2024-07-23 08:50] LABS: Troponin T High Sensitivity 36 ng/L (<=22)
[2024-07-23 08:55] LABS: White Blood Cells 10-25 SEEN /hpf (0-5)
[2024-07-23 08:56] LABS: Red Blood Cells-Urine 5-10 SEEN /hpf (0-5)
[2024-07-23 08:57] LABS: Bacteria 1+ /hpf (None Seen)
[2024-07-23 09:23] VITALS: BP 108/69; O2SAT 97
[2024-07-23] MEDS: Ceftriaxone 1 GM/50 ML BAG IV (09:28)
[2024-07-23 10:33] LABS: Troponin T High Sens 2 HR 33 ng/L (<=22)
[2024-07-23 10:48] VITALS: BP 139/80; PULSE 80; RESP 18; O2SAT 98
[2024-07-23 11:37] VITALS: BP 148/78; PULSE 80; RESP 18; TEMP 36.8; O2SAT 97
== END 2024-07-23 11:38 | disposition home or self-care (01) ==
PROVIDERS: Emergency Provider Emergency Medicine; PCP Family Medicine; Visit Provider Emergency Medicine
DX: N39.0 Urinary tract infection, site not specified (principal); E11.9 Type 2 diabetes mellitus without complications; R05.3 Chronic cough; I10 Essential (primary) hypertension; I49.1 Atrial premature depolarization; K21.9 Gastro-esophageal reflux disease without esophagitis; E78.00 Pure hypercholesterolemia, unspecified; Z85.51 Personal history of malignant neoplasm of bladder; Z79.899 Other long term (current) drug therapy
CPT/HCPCS: 71046; 80048; 81001; 84484; 85025; 87077; 87086; 87088; 87186; 87631; 93005; 96365; 99284; A4216

== ENCOUNTER 2024-09-18 14:10 | Inpatient (IN) | payer MEDICARE, SELFPAY ==
[2024-09-18 14:10] VITALS: BP 164/85; PULSE 131; RESP 16; TEMP 37.1; O2SAT 97
[2024-09-18 14:13] VITALS: BMI 31.0
--- NOTE | 2024-09-18 14:28 | RAD_ITS ---
EXAM: XR Right Knee Complete, 4 or More Views CLINICAL INDICATION: RIGHT KNEE INFECTED. POSSIBLE FOREIGN BODY. TECHNIQUE: Four or more views of the right knee. COMPARISON: No relevant prior studies available. FINDINGS: BONES/JOINTS: Moderate degenerative changes of the medial compartment and femoral patellar joint space. No acute fracture. No dislocation. SOFT TISSUES: Soft tissue swelling. RAD/Knee 4 or More Views IMPRESSION: Degenerative changes as above. Reading Location: [id number]
--- NOTE | 2024-09-18 14:28 | RAD_ITS ---
EXAM: XR Right Knee Complete, 4 or More Views CLINICAL INDICATION: RIGHT KNEE INFECTED. POSSIBLE FOREIGN BODY. TECHNIQUE: Four or more views of the right knee. COMPARISON: No relevant prior studies available. FINDINGS: BONES/JOINTS: Moderate degenerative changes of the medial compartment and femoral patellar joint space. No acute fracture. No dislocation. SOFT TISSUES: Soft tissue swelling. RAD/Knee 4 or More Views IMPRESSION: Degenerative changes as above. Reading Location: [id number]
--- NOTE | 2024-09-18 14:30 | EDS_ITS ---
HPI History of Present Illness HPI Narrative: 74-year-old male with history of diabetes and hypertension. For the last 3 to 4 days he has had atraumatic right knee pain redness and swelling. He has had chills no fever. Had an injury to this in June where he was hit by a piece of wood he cut off with a chainsaw. He was not evaluated for it at that time. He denies any recent trauma. Chief Complaint: Lower Extremity Injury Informant: patient Onset/Context/Timing Current Severity: Moderate Maximum Severity: Moderate Associated Symptoms Associated Symptoms: Negative for Parasthesia, Weakness or Loss of Funtion Narrative Narrative: 74-year-old male right knee pain, redness and swelling. Been going on since Friday. Prior injury in June but was not evaluated for it at that time. Prior similar symptoms: No Recent Illness/Hospitalization: No PFSH PFSH Medical History Bladder cancer Kidney stones GERD (gastroesophageal reflux disease) Hypertension Wears dentures Wears glasses Diabetes Arthritis High cholesterol Back pain Gastric reflux Non-smoker Chronic cough Hypertension Kidney stone Home Medications ?Medication ?Instructions ?Recorded ?Last Taken ?Type atorvastatin 40 mg tablet 40 mg PO DAILY HLD 01/21/21 01/15/22 History lisinopril 5 mg tablet 5 mg PO DAILY HTN 12/02/21 1 03/18/21 05:00 History garlic 300 mg tablet 300 mg PO DAILY SUPPLEMENT 0 12/12/21 01/15/22 History zinc 50 mg capsule 50 mg PO DAILY SUPPLEMENT 01/15/22 History atorvastatin 40 mg tablet 40 mg PO QPM CHOLESTEROL 05/0801/15/22 History lisinopril 5 mg tablet 5 mg PO DAILY BLOOD PRESSURE 01/16/22 01/16/22 History oxycodone-acetaminophen 5 mg-325 1 tab PO Q6H PRN PRN Pain 01/16/22 Unknown History mg tablet lisinopril 20 mg tablet 20 mg PO DAILY #30 tabs 12/15 06/06 Unknown Rx ciprofloxacin HCl 500 mg tablet 500 mg PO BID #10 tabs 07/23/24 Unknown Rx (Cipro) nitrofurantoin macrocrystal 100 mg 100 mg PO BID 7 day s #14 caps 07/26/24 Unknown Rx capsule Allergy/AdvReac Type Severity Reaction Status Date / Time Penicillins Allergy Other Verified 09/18/24 14:10 Surgical History Hx of hernia repair Hx of cystoscopy Social History Smoking Status: Never smoker ROS ROS ED ROS Narrative Chills. Red swollen painful right knee. Constitutional Constitutional ED: Reports chills; Denies fever(s) Eyes Eyes: Denies blurry vision ENT ENT ED: Denies ear pain Cardiovascular Cardiovascular: Denies chest pain Respiratory/Chest Respiratory/Chest: Denies cough Gastrointestinal Gastrointestinal: Denies abdominal pain Genitourinary Genitourinary ED: Denies dysuria or hematuria Musculoskeletal Musculoskeletal: Denies arthralgias Integumentary Reports rash; Denies abscess or Abrasions Neurologic Neurologic: Denies headache(s) Psychiatric Psychiatric: Denies anxiety Endocrine Endocrinology: Denies polydipsia Hematologic/Lymphatic Hematologic/Lymphatic: Denies easy bleeding or easy bruising Allergic/Immunologic Allergic/Immunologic ED: Denies mouth swelling, tongue swelling or urticaria EXAM Physical Exam Narrative Exam Narrative: 74-year-old male vital signs stable pulse 131. Pressure 164/85. Patient does not look septic or toxic. H EENT exam pupils round react light. moist mucous membranes. Neck nontender no lymphadenopathy. Lungs clear to auscultation. Heart tachycardic 115 no murmur. Chest wall ribs nontender. Abdomen soft nontender. Moving all 4 extremities. Right knee cellulitic red and swollen. Is a large area of swelling medially which could be from an abscess or foreign body even from a prior injury in June. He is able to flex and extension is limited due to discomfort but again I think this is superficial infection and not in the joint at this time. Dorsi plantarflexion intact. No inguinal lymphadenopathy. Other extremities are nontender. He is awake and alert. Const Vital Signs: 09/18/24 14:10 09/18/24 15:15 Temperature 98.8 F 99.2 F H Temperature Source Oral Temporal Pulse Rate 131 H 107 H Respiratory Rate 16 18 Blood Pressure 164/85 H 132/67 H Blood Pressure Mean 111 88 Pulse Ox 97 93 Oxygen Delivery Method Room Air Room Air Positive well nourished and well developed; Negative for cachectic or contractures General Appearance ED: well developed and NAD; Negative for cachectic or contractures Nutritional Appearance: Negative for cachectic HEENT Reports moist mucous membranes normocephalic and atraumatic Eyes PERRL Neck full ROM and supple Chest Wall inspection of chest normal and palpation of chest normal Resp normal respiratory effort, no retractions and clear to auscultation bilaterally Cardio regular rhythm, S1 normal heart sound, S2 normal heart sound and no murmurs; Negative for regular rate Rate: tachycardic GI non-tender, non-distended and no masses Auscultation: normoactive bowel sounds Palpation: soft; Negative for tender, guarding or rebound tenderness present Back/Spine no CVA tenderness Extremity normal to inspection and full ROM Extremity Narrative: Septic right knee. Red, swollen, cellulitic. Appears to be superficial cellulitis possible medial abscess. No lymphangitic streaking. No inguinal lymphadenopathy. He does have limited range of motion to the knee because of the pain and swelling. General Extremety ED: Yes edema and weight-bearing difficulty General Extremity: edema and weight-bearing difficulty Neuro oriented x3 and CN's II-XII intact bilaterally Sensorium / Orientation: alert, oriented to person, oriented to place and oriented to time Motor Exam: strength 5/5 throughout Psych mental status grossly normal Skin no wounds Skin Narrative: Cellulitis and swelling right knee. Lesions: no lesions Rashes: No no rashes MDM MDM MDM Narrative Medical decision making narrative: 74-year-old male with right knee redness and swelling consistent with cellulitis currently I do not think that septic joint. That is in the differential however. Will be started on Ancef. Screening labs and x-ray of be obtained. Had a prior injury in June he said there was no lacerations so it be unlikely that there is a foreign body but he was not evaluated for that at that time. He also be given the morphine for pain and Zofran. He will need admitted. I might have to I&D this depending on further evaluation. Repeat exam at 4:05 PM patient doing well. Incise injury to the lateral aspect of his right knee. It was clear fluid. No pus. Small amount of blood. It was a superficial I&D. It was not in the joint. He can flex and extend the knee I think this is always superficial cellulitis and not in the joint. I have the hospitalist on page for admission. History & Record Review Discussion w/independent historian: Patient Additional record(s) reviewed:: Prior inpatient record, Prior outpatient record, Prior ED visit and Prior labs Lab Data Attestation: I reviewed the patient's lab results. Lab results narrative: CBC shows a white count of 12.6. H&H 12.8 and 37. Platelets 239. Electrolytes show gap 11. Normal BUN and creatinine. Glucose 104. Right knee x-ray shows soft tissue swelling and degenerative arthritis with decreased joint space but no foreign body. Labs: Laboratory Results - last 24 hr 09/18/24 14:35 WBC 12.6 H RBC 4.13 L Hgb 12.8 L Hct 37.6 L MCV 91.0 MCH 31.0 MCHC 34.0 RDW Std Deviation 45.1 H RDW Coeff of Kim 13.3 Plt Count 239 MPV 10.5 Immature Gran % (Auto) 0.500 Neut % (Auto) 86.6 H Lymph % (Auto) 4.9 L Dougherty % (Auto) 6.9 Eos % (Auto) 0.8 Baso % (Auto) 0.3 Absolute Neuts (auto) 10.9 H Absolute Lymphs (auto) 0.61 L Nucleated RBC % 0 Sodium 136 Potassium 4.1 Chloride 104 Carbon Dioxide 20.7 L Anion Gap 11 BUN 16 Creatinine 0.76 Estim Creat Clear Calc 87.91 Est GFR (MDRD) Non-Af 95 BUN/Creatinine Ratio 21.6 H Glucose 104 H Calcium 8.6 Radiography Diagnostic Testing: Clinical Impression(s) from Imaging Studies Knee X-Ray 09/18/24 14:28 IMPRESSION: Degenerative changes as above. Reading Location: [facility] Right knee, 4 views, interpreted by myself and radiologist. Shows soft tissue swelling. Degenerative arthritis. No fracture. No foreign body. No subcu air. Procedures Other Procedures Procedure(s): Right knee medial aspect incision and drainage. Cleaned with Shur-Clens. Saline. Locally anesthetized with lidocaine. Made about 1 to 2 cm incision. Clear fluid no pus. This was superficial subcu tissue not the joint. Patient tolerated well. Discharge Plan Triage Chief Complaint: Lower Extremity Injury ED Provider: Bjorn Yepez Dx/Rx/DC Orders Clinical Impression: Cellulitis of knee, right, History of diabetes mellitus, History of hypertension Prescriptions: No Action atorvastatin 40 mg tablet 40 mg PO DAILY lisinopril 5 mg tablet 5 mg PO DAILY Patient Comments: TAKE 1 TABLET BY MOUTH EVERY DAY garlic 300 mg Tablet 300 mg PO DAILY zinc 50 mg Capsule 50 mg PO DAILY atorvastatin 40 mg tablet 40 mg PO QPM Patient Comments: TAKE 1 TABLET BY MOUTH EVERYDAY AT BEDTIME oxycodone-acetaminophen 5-325 mg tablet 1 tab PO Q6H PRN PRN (Reason: Pain) lisinopril 5 mg tablet 5 mg PO DAILY Patient Comments: TAKE 1 TABLET BY MOUTH EVERY DAY lisinopril 20 mg tablet 20 mg PO DAILY Qty: 30 0RF ciprofloxacin HCl [Cipro] 500 mg tablet 500 mg PO BID Qty: 10 0RF nitrofurantoin macrocrystal 100 mg capsule 100 mg PO BID 7 Days Qty: 14 0RF Rx Instructions: must administer with a meal/food Primary Care Provider: Davis Armstrong Referrals: Davis Armstrong MD [Primary Care Provider] - Print Language: [place] Disposition Disposition: Acute Care [facility]
--- OUTSIDE RECORDS SUMMARY | 2024-09-18 14:42 | XMS RPT_ITS | CCD ---
Author Organization [facility] Care Team Providers Care Information And Data Architect Analyst Name Role Phone Patti SANTIAGO, Dr. Davis uW Primary Care Provider [phone] Patti SANTIAGO, Dr. Davis Wu Attending Provider Patti SANTIAGO, Dr. Davis Wu Referring Provider Dr. Osmany Evans DO Emergency Provider [phone] Davis Armstrong Primary Care Unavailable Davis Armstrong Attending Unavailable Davis Armstrong Referring Unavailable Davis Armstrong Referring Unavailable Davis Armstrong Primary Care Unavailable Davis Armstrong Attending Unavailable Davis Armstrong Primary Care Unavailable Osmany Evans Attending Unavailable Davis Armstrong Primary Care Unavailable Davis Armstrong Attending Unavailable Davis Armstrong Referring Unavailable Davis Armstrong Primary Care Unavailable Davis Armstrong Attending Unavailable Davis Armstrong Referring Unavailable Allergies Allergy Classification Reported Allergen(s) Allergy Type Date of Onset Reaction(s) Facility (12 sources) Penicillins Allergy to substance 12-19-2021 Other [facility] (1 source) Penicillins Drug allergy (disorder) 07-23-2024 [facility] Repository Medications Current Medications Medication Drug Class(es) Dates Sig (Normalized) Sig (Original) acetaminophen 325 mg / HYDROcodone bitartrate 5 mg oral tablet (1 source) Opioid Agonist Start: 12-02-2021 take 1 tablet by mouth every six hours as needed Hydrocodone-Aceta minophen Active 1 TABLET PO EVERY 6 HOURS NEEDED 10 3 December 02, 2021 acetaminophen 325 mg / oxyCODONE hydrochloride 5 mg oral tablet (11 sources) Opioid Agonist Start: 01-16-2022 Oxycodone-Acetami nophen 5-325 mg tablet Active 1 {tbl} PO EVERY 6 HOURS NEEDED as needed for Pain January 16, 2022 12:00am Start: 01-16-2022 take 1 tablet by joe th every six hours as needed Oxycodone-Acetaminophen Active 1 TABLET PO EVERY 6 HOURS NEEDED January 15, 2022 11:00pm Start: 12-19-2021 take 1 tablet by joe th every six hours Oxycodone-Acetaminophen Active 1 TABLET PO EVERY 6 HOURS 14 December 19, 2021 atorvastatin 40 mg oral tablet (20 sources) HMG-CoA Reductase Inhibitor Start: 01-21-2021 take 1 tablet by mouth once daily in the evening Atorvastatin 40 mg tablet Active 40 mg PO EVERY EVENING January 16, 2022 12:00am ciprofloxacin 500 mg oral tablet (13 sources) Quinolone Antimicrobial Start: 01-16-2022 End: 07-23-2024 take 1 tablet by mouth twice daily Ciprofloxacin Hcl (Cipro) 500 mg tablet Active 500 mg PO TWICE A DAY July 23, 2024 11:16am Start: 12-19-2021 take 1 tablet by joe th twice daily Ciprofloxacin Hcl (Cipro) 500 mg tablet Active 500 MG PO TWICE A DAY December 19, 2021 12:00am garlic preparation 300 mg oral tablet (12 sources) Non-Standardized Food Allergenic Extract Start: 12-12-2021 take 1 tablet by mouth once daily Garlic 300 mg Tablet Active 300 mg PO DAILY December 12, 2021 12:00am Start: 12-12-2021 take 300 mg by mouth once ramón y Garlic Active 300 MG PO DAILY December 11, 2021 11:00pm Start: 12-12-2021 take 300 mg by mouth once ramón y Garlic Active 300 MG PO DAILY December 12, 2021 12:00am lisinopril 20 mg oral tablet (20 sources) Angiotensin Converting Enzyme Inhibitor Start: 12-27-2022 take 1 tablet by mouth once daily Lisinopril 20 mg tablet Active 20 mg PO DAILY December 27, 2022 12:00am Start: 12-02-2021 take 1 tablet by joe th once daily Lisinopril 5 mg tablet Active 5 mg PO DAILY January 16, 2022 12:00am Zinc (12 sources) Start: 12-12-2021 take 1 capsule by mo uth once daily Zinc 50 mg Capsule Active 50 mg PO DAILY December 12, 2021 12:00am Start: 12-12-2021 take 50 mg by mouth once daily Zinc Active 50 MG PO DAILY December 11, 2021 11:00pm Start: 12-12-2021 take 50 mg by mouth once daily Zinc Active 50 MG PO DAILY December 12, 2021 12:00am Problems Active Problems Problem Classification Problem Date Documented Date Episodic/Chronic Calculus of urinary tract (20 sources) Ureteric stone; Translations: [Calculus of ureter] 12-19-2021 Episodic Complication of device; implant or graft (9 sources) Complication of urinary catheter; Translations: [Unspecified complication of genitourinary prosthetic device, implant and graft, initial encounter] 01-26-2022 Episodic Deficiency and other anemia (1 source) Anemia, unspecified; Translations: [Anemia, unspecified] Onset: 06-02-2024 Episodic Essential hypertension (2 sources) Hypertensive disorder; Translations: [Essential (primary) hypertension] Onset: 05-31-2024 07-23-2024 Chronic Genitourinary symptoms and ill-defined conditions (18 sources) Blood in urine; Translations: [Hematuria, unspecified] 01-24-2022 Episodic Open wounds of extremities (13 sources) Laceration of left index finger; Translations: [Laceration without foreign body of left index finger without damage to nail, initial encounter] 09-02-2021 Episodic Other diseases of bladder and urethra (9 sources) Mass of urinary bladder; Translations: [Other specified disorders of bladder] 01-24-2022 Chronic Residual codes; unclassified (1 source) Chills (without fever); Translations: [Chills (without fever)] Onset: 07-28-2024 Episodic Urinary tract infections (14 sources) Urinary tract infectious disease; Translations: [Urinary tract infection, site not specified] 01-29-2021 Episodic Past or Other Problems Problem Classification Problem Date Documented Da te Episodic/Chronic Other screening for suspected conditions (not mental disorders or infectious disease) (1 source) Encounter for screening for malignant neoplasm of prostate; Translations: [Encounter for screening for malignant neoplasm of prostate] Onset: 02-02-2024 Episodic Results Test Name Value Interpretation Reference Range Facility Urine Cultureon 07-25-2024 [facility] #2 Below infection level. Enterococcus faecalis Beta Lactamase-Reportable Negative Tanner Count 80,000-100,000 GNR Tanner Count <1000 Gram negative buffy Ampicillin Islt YOLANDA <=2 Ciprofloxacin Islt YOLANDA >=8 R Gentamicin Synergy Susc Islt SYN-R levoFLOXacin Islt YOLANDA >=8 R Linezolid Islt YOLANDA 2 S Nitrofurantoin Islt YOLANDA <=16 S Streptomycin High Pot Susc Islt SYN-S S Tetracycline Islt YOLANDA >=16 R Vancomycin Islt YOLANDA 1 S Normal [facility] Comment on above: Performed By: #### M 100.2200 #### [facility] [address] [place], [address] Absolute lymphocyte countOrd ered By: Osmany Evans on 07-23-2024 Lymphocytes Auto (Unsp spec) [#/Vol] 0.43 10*3/uL Low 0.83-4.51 [facility] Absolute neutrophil countOrd ered By: Osmany Evans on 07-23-2024 Neutrophils (Bld) [#/Vol] 9.3 10*3/uL High 2.0-7.7 [facility] Anion gap in Serum or Plasma Ordered By: Osmany Evans on 07-23-2024 Anion gap [Moles/Vol] 11 mmol/L 5-15 [facility] Automated lymphocyte count a s percentage of total leukocytesOrdered By: Osmany Evans on 07-23-2024 Lymphocytes/100 WBC Auto (Unsp spec) 4.0 % Low 19-41 [facility] BUN/creatinine ratioOrdered By: Osmany Evans on 07-23-2024 Urea nitrogen/Creatinine [Mass ratio] 19.5 mg/mg 10-20 [facility] Basic Metabolic Profile (BMP )on 07-23-2024 BUN/CRE 19.5 RATIO Normal - [facility] Comment on above: Performed By: #### L 500.2500, L100.0100 #### [facility] [address] [place], [address] Calcium [Mass/Vol] 9.1 mg/dL Normal 7.6-11.0 [facility] Comment on above: Performed By: #### L 500.2500, L100.0100 #### [facility] [address] [place], [address] Chloride [Moles/Vol] 102 mmol/L Normal 98-108 [facility] Comment on above: Performed By: #### L 500.2500, L100.0100 #### [facility] [address] [place], [address] CO2 [Moles/Vol] 23.1 mmol/L Normal 21.0-32.0 [facility] Comment on above: Performed By: #### L 500.2500, L100.0100 #### [facility] [address] [place], [address] Creatinine [Mass/Vol] 0.95 mg/dL Normal 0.70-1.20 [facility] Comment on above: Performed By: #### L 500.2500, L100.0100 #### [facility] [address] [place], [address] ECRCL 74.77 ml/min Normal 50-250 [facility] Comment on above: Performed By: #### L 500.2500, L100.0100 #### [facility] [address] [place], [address] GAP 11 Normal 5-15 [facility] Comment on above: Performed By: #### L 500.2500, L100.0100 #### [facility] [address] [place], [address] GFR/1.73 sq M.predicted among non-blacks MDRD (S/P/Bld) [Vol rate/Area] 84 mL/min/{1.73_m2} Normal >60 [facility] Comment on above: Result Comment: mL/m in/1.73m2 CKD-EPI Creatinine Equation (2020) Performed By: #### L 500.2500, L100.0100 #### [facility] [address] [place], [address] Glucose [Mass/Vol] 100 mg/dL High 70-99 [facility] Comment on above: Performed By: #### L 500.2500, L100.0100 #### [facility] [address] [place], [address] Potassium [Moles/Vol] 3.9 mmol/L Normal 3.3-5.1 [facility] Comment on above: Performed By: #### L 500.2500, L100.0100 #### [facility] [address] [place], [address] Sodium [Moles/Vol] 136 mmol/L Normal 133-145 [facility] Comment on above: Performed By: #### L 500.2500, L100.0100 #### [facility] [address] [place], [address] Urea nitrogen [Mass/Vol] 19 mg/dL Normal 4-19 [facility] Comment on above: Performed By: #### L 500.2500, L100.0100 #### [facility] [address] [place], [address] Basophil percentageOrdered B y: Osmany Evans on 07-23-2024 Basophils/100 WBC (Bld) 0.4 % 0-[address] [facility] Bilirubin Test strip Ql (U)O rdered By: Osmany Evans on 07-23-2024 Bilirubin Ql (U) Negative Negative [facility] CBC W/Diff, Automatedon Absolute Lymph 0.43 X10 3/uL Low 0.83-4.51 [facility] Comment on above: Performed By: #### L 500.2500, L100.0100 #### [facility] [address] [place], [address] Absolute Neut 9.3 X10 3/uL High 2.0-7.7 [facility] Comment on above: Performed By: #### L 500.2500, L100.0100 #### [facility] [address] [place], [address] Basophils/100 WBC (Bld) 0.4 % Normal 0-[address] [facility] Comment on above: Performed By: #### L 500.2500, L100.0100 #### [facility] [address] [place], [address] Eosinophils/100 WBC (Bld) 0.2 % Normal 0-5 [facility] Comment on above: Performed By: #### L 500.2500, L100.0100 #### [facility] [address] [place], [address] Erythrocyte distribution width (RBC) [Ratio] 13.3 % Normal 11.6-14.6 [facility] Comment on above: Performed By: #### L 500.2500, L100.0100 #### [facility] [address] [place], [address] Hematocrit (Bld) [Volume fraction] 40.1 % Normal 40-54 [facility] Comment on above: Performed By: #### L 500.2500, L100.0100 #### [facility] [address] [place], [address] Hemoglobin (Bld) [Mass/Vol] 13.8 g/dL Normal 13.0-16.5 [facility] Comment on above: Performed By: #### L 500.2500, L100.0100 #### [facility] [address] [place], [address] IG% 0.600 Normal 0.0-0.9 [facility] Comment on above: Result Comment: IG% - Immature Granulocytes (promyelocytes, myelocytes and metamyelocytes) > 1% indicates that a LEFT SHIFT is Present. Performed By: #### L 500.2500, L100.0100 #### [facility] [address] [place], [address] Lymphocytes/100 WBC (Bld) 4.0 % Low 19-41 [facility] Comment on above: Performed By: #### L 500.2500, L100.0100 #### [facility] [address] [place], [address] MCH (RBC) [Entitic mass] 32.0 pg Normal 27.0-32.0 [facility] Comment on above: Performed By: #### L 500.2500, L100.0100 #### [facility] [address] [place], [address] MCHC (RBC) [Mass/Vol] 34.4 g/dL Normal 32-36 [facility] Comment on above: Performed By: #### L 500.2500, L100.0100 #### [facility] [address] [place], [address] MCV (RBC) [Entitic vol] 93.0 fL Normal 80-[address] [facility] Comment on above: Performed By: #### L 500.2500, L100.0100 #### [facility] [address] [place], [address] Monocytes/100 WBC (Bld) 8.2 % Normal 0-[address] [facility] Comment on above: Performed By: #### L 500.2500, L100.0100 #### [facility] [address] [place], [address] Neutrophils/100 WBC (Bld) 86.6 % High 47-70 [facility] Comment on above: Performed By: #### L 500.2500, L100.0100 #### [facility] [address] [place], [address] Nucleated RBC (Bld) [#/Vol] 0 10*3/uL Normal 0-5 [facility] Comment on above: Performed By: #### L 500.2500, L100.0100 #### [facility] [address] [place], [address] Platelet mean volume (Bld) [Entitic vol] 10.4 fL Normal 6.2-12.0 [facility] Comment on above: Performed By: #### L 500.2500, L100.0100 #### [facility] [address] [place], [address] Platelets (Bld) [#/Vol] 224 10*3/uL Normal 150-450 [facility] Comment on above: Performed By: #### L 500.2500, L100.0100 #### [facility] [address] [place], [address] RBC (Bld) [#/Vol] 4.31 10*6/uL Low 4.6-6.2 [facility] Comment on above: Performed By: #### L 500.2500, L100.0100 #### [facility] [address] [place], [address] RDW SD 45.2 fl High 35.1-43.9 [facility] Comment on above: Performed By: #### L 500.2500, L100.0100 #### [facility] [address] [place], [address] WBC (Bld) [#/Vol] 10.7 10*3/uL Normal 4.4-11.0 [facility] Comment on above: Performed By: #### L 500.2500, L100.0100 #### [facility] [address] [place], [address] Carbon dioxide, total [Moles /volume] in Central venous bloodOrdered By: Osmany Evans on 07-23-2024 CO2 [Moles/Vol] 23.1 mmol/L 21.0-32.0 [facility] Chest PA and Lateralon 07-23 Chest PA and Lateral [facility] Imaging Services [address] [place] [address] Chest PA and Lateral MR#: [id number] Acct: [id number] Name: YANET CORRIGAN Rep #: [id number] : 1950 M 74 From: Naveen Ontiveros MD PCP: Dr. Davis Armstrong MD Status: [facility] ER Study: Chest PA and Lateral Date of Exam: 07/23/24 Exam# [id number] Ordering Dr: Osmany Evans DO PROCEDURE: CHEST PA AND LATERAL 07/23/2024 REASON FOR EXAM: COUGH TECHNIQUE: Frontal and lateral views of the chest. COMPARISON: 12/27/2022 FINDINGS: The lungs appear clear. Pulmonary vascularity appears within limits. No pleural effusion. The cardiac and mediastinal contours appear within limits. RAD/Chest PA and Lateral IMPRESSION: No evidence of acute disease. Reading Location: [facility] CC: Dr. Osmany Evans DO; Dr. 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 Davis Armstrong MD Status:[facility] ER Location: ED HPI History of Present Illness Chief Complaint: General Illness Informant: patient Onset/Context/Timing Onset: Yesterday Context: Gradual Onset Timing: Continuous Quality: Shaking Location: Generalized Worsened by: Nothing Relieved by: Rest Narrative Narrative: Patient presents with not feeling well that began last night. Patient states he was having some shaking chills last night. Patient states this got better with rest. Patient states nothing seems to make it worse. Patient states he has been having a cough with some white sputum. Patient denies any shortness of breath. Patient denies any chest pain. Patient denies any sore throat or rhinorrhea. Patient denies any dysuria or hematuria. PFSH PFS Medical History Bladder cancer Kidney stones GERD (gastroesophageal reflux disease) Hypertension Wears dentures Wears glasses Diabetes Arthritis High cholesterol Back pain Gastric reflux Non-smoker Chronic cough Hypertension Kidney stone Home Medications ???Medication ???Instructions ???Recorded ???Last Taken ???Type atorvastatin 40 mg tablet 40 mg PO DAILY HLD 01/21/21 History lisinopril 5 mg tablet 5 mg PO DAILY HTN 12/02/21 2 05:00 History garlic 300 mg tablet 300 mg PO DAILY SUPPLEMENT 2 01/15/22 History zinc 50 mg capsule 50 mg PO DAILY SUPPLEMENT 12/12/21 01/15/22 History atorvastatin 40 mg tablet 40 mg PO QPM CHOLESTEROL 01/16/22 01/15/22 History lisinopril 5 mg tablet 5 mg PO DAILY BLOOD PRESSURE 01/1601/16/22 History oxycodone-acetaminophe n 5 mg-325 1 tab PO Q6H PRN PRN Pain 01/16/22 Unknown History mg tablet lisinopril 20 mg tablet 20 mg PO DAILY #30 tabs 12/27/22 U nknown Rx ciprofloxacin HCl 500 mg tablet 500 mg PO BID #10 tabs 07/23/24 Un known Rx (Cipro) Allergy/AdvReac Type Severity Reaction Status Date / Time Penicillins Allergy Other Verified 07/23/24 07:08 Surgical History Hx of hernia repair Hx of cystoscopy Social History Smoking Status: Never smoker ROS ROS ED Constitutional Constitutional ED: Reports chills and subjective Eyes Eyes: Denies blurry vision or change in vision ENT ENT ED: Denies rhinorrhea or sore throat Cardiovascular Cardiovascular: Denies chest pain or palpitations Respiratory/Chest Respiratory/Chest: Reports cough and sputum; Denies dyspnea Gastrointestinal Gastrointestinal: Denies nausea or vomiting Genitourinary Genitourinary ED: Denies dysuria or hematuria Musculoskeletal Musculoskeletal: Denies back pain or neck pain Integumentary Denies abscess or rash Neurologic Neurologic: Denies headache(s) or weakness Allergic/Immunologic Allergic/Immunologic ED: Denies mouth swelling or urticaria EXAM Physical Exam Const Vital Signs: 07/23/24 07:05 07/23/24 07:21 07/23/24 07:32 Temperature 98.5 F 98.5 F Temperature Source Oral Temporal Pulse Rate 99 99 Respiratory Rate 19 H 18 Respiratory Effort Normal Non-Labored Respiratory Pattern Normal Blood Pressure 155/90 H 155/90 H Blood Pressure Mean 111 111 Pulse Ox 98 98 Oxygen Delivery Method Room Air Room Air 07/23/24 09:23 07/23/24 10:48 Temperature Temperature Source Pulse Rate 80 Respiratory Rate 18 Respiratory Effort Respiratory Pattern Blood Pressure 108/69 139/80 H Blood Pressure Mean 82 99 Pulse Ox 97 98 Oxygen Delivery Method Room Air Positive well nourished and well developed General Appearance ED: well developed and NAD HEENT Reports moist mucous membranes Neck supple and no JVD Resp normal respiratory effort and clear to auscultation bilaterally Cardio regular rate and regular rhythm GI non-tender and non-distended Palpation: soft Neuro oriented x3, CN's II-XII intact bilaterally and no sensory deficits noted Sensorium / Orientation: alert Motor Exam: strength 5/5 throughout Psych mental status grossly normal MDM MDM MDM Narrative Medical decision making narrative: Differential diagnosis includes pneumonia, bronchitis, urinary tract infection, cardiac dysrhythmia, cardiac ischemia, electrolyte abnormality, and a viral illness. EKG will be obtained to assess for cardiac dysrhythmia and cardiac ischemia. Chest x-ray will be obtained to assess for pneumonia and bronchitis (more content not included)... Normal [facility] Eosinophil percentageOrdered By: Osmany Evans on 07-23-2024 Eosinophils/100 WBC (Bld) 0.2 % 0-5 [facility] Erythrocyte distribution wid th ratioOrdered By: Osmany Evans on 07-23-2024 Erythrocyte distribution width (RBC) [Ratio] 13.3 % 11.6-14.6 [facility] Erythrocyte distribution wid th standard deviationOrdered By: Osmany Evans on 07-23-2024 Erythrocyte distribution width (RBC) [Ratio] 45.2 fl High 35.1-43.9 [facility] Glomerular filtration rate ( GFR) estimation/1.73 sq m using serum, plasma, or whole bOrdered By: Osmany Evans on 07-23-2024 GFR/1.73 sq M.predicted among non-blacks MDRD (S/P/Bld) [Vol rate/Area] 84 mL/min/{1.73_m2} >60 [facility] Comment on above: mL/min/1.73m2 CKD-EP I Creatinine Equation (2020) Hematocrit Auto (Bld) [Volum e fraction]Ordered By: Osmany Evans on 07-23-2024 Hematocrit (Bld) [Volume fraction] 40.1 % 40-54 [facility] Hemoglobin measurementOrdere d By: Osmany Evans on 07-23-2024 Hemoglobin (Bld) [Mass/Vol] 13.8 g/dL 13.0-16.5 [facility] Immature granulocytes/100 WB C Auto (Bld)Ordered By: Osmany Evans on 07-23-2024 Immature granulocytes/100 WBC (Bld) 0.600 % 0.0-0.9 [facility] Comment on above: IG% - Immature Granu locytes (promyelocytes, myelocytes and metamyelocytes) > 1% indicates that a LEFT SHIFT is Present. Influenza virus A and B and SARS-CoV-2 (COVID-19) and Respiratory syncytial virus RNAOrdered By: Osmany Evans on 07-23-2024 SARS-CoV-2 (COVID-19) RNA AMELIA+probe Ql (Unsp spec) [facility] Ketones Test strip Ql (U)Ord ered By: Osmany Evans on 07-23-2024 Ketones Ql (U) 5 mg/dl High Negative [facility] L499.0042on 07-23-2024 Trop T High Sen 33 ng/L High <=22 [facility] Comment on above: Performed By: #### L 500.2500, L100.0100 #### [facility] [address] [place] [address]. [place], [address] L499.0043on 05-09-2025 Trop T High Sen Normal <=22 [facility] Comment on above: Result Comment: LUIZ ENT DISCHARGED Performed By: #### L 499.0043 #### [facility] [address] [place], [address] L501.4021on 07-23-2024 Trop T High Sen 36 ng/L High <=22 [facility] Comment on above: Performed By: #### L 501.4021 ####[facility] [address] [place], [address] M100.678on 07-23-2024 M100.678 Pending SARS-CoV-2 (COVID 19) Negative INFLUENZA A Negative INFLUENZA B Negative RSV PCR Negative Normal [facility] Comment on above: Performed By: #### L 500.2500, L100.0100 #### [facility] [address] [place], [address] MCV (mean corpuscular volume ) determinationOrdered By: Osmany Evans on 07-23-2024 MCV (RBC) [Entitic vol] 93.0 fL 80-[address] [facility] Mean corpuscular hemoglobin (MCH) determinationOrdered By: Osmany Evans on 07-23-2024 MCH (RBC) [Entitic mass] 32.0 pg 27.0-32.0 [facility] Mean corpuscular hemoglobin concentration (MCHC) determinationOrdered By: Osmany Evans on 07-23-2024 MCHC (RBC) [Mass/Vol] 34.4 g/dL 32-36 [facility] Mean platelet volume determi nationOrdered By: Osmany Evans on 07-23-2024 Platelet mean volume (Bld) [Entitic vol] 10.4 fL 6.2-12.0 [facility] Microscopic analysis of urin e for red blood cells (RBC)Ordered By: Osmany Evans on 07-23-2024 Microscopic analysis of urine for red blood cells (RBC) 5-10 SEEN /hpf 0-5 [facility] Monocyte percentageOrdered B y: Osmany Evans on 07-23-2024 Monocytes/100 WBC (Bld) 8.2 % 0-[address] [facility] Mucus LM Ql (Urine sed)Order ed By: Osmany Evans on 07-23-2024 Mucus Ql (Urine sed) 0 SEEN /hpf [facility] Neutrophil percentageOrdered By: Osmany Evans on 07-23-2024 Neutrophils/100 WBC (Bld) 86.6 % High 47-70 [facility] Nitrite Test strip Ql (U)Ord ered By: Osmany Evans on 07-23-2024 Nitrite Ql (U) Negative Negative [facility] Nucleated red blood cell per centageOrdered By: Osmany Evans on 07-23-2024 Nucleated RBC/100 WBC (Bld) [Ratio] 0 % 0-5 [facility] Platelet countOrdered By: Mark Evans on 07-23-2024 Platelets (Bld) [#/Vol] 224 10*3/uL 150-450 [facility] Potassium measurement (mass/ volume)Ordered By: Osmany Evans on 07-23-2024 Potassium (Unsp spec) [Mass/Vol] 3.9 mmol/L 3.3-5.1 [facility] Protein Test strip Ql (U)Ord ered By: Osmany Evans on 07-23-2024 Protein Ql (U) 100 mg/dl High Negative [facility] RBC Auto (Bld) [#/Vol]Ordere d By: Osmany Evans on 07-23-2024 RBC (Bld) [#/Vol] 4.31 10*6/uL Low 4.6-6.2 [facility] Serum creatinine measurement (mass/volume)Ordered By: Osmany Evans on 07-23-2024 Creatinine [Mass/Vol] 0.95 mg/dL 0.70-1.20 [facility] Serum glucose measurement (m ass/volume)Ordered By: Osmany Evans on 07-23-2024 Glucose [Mass/Vol] 100 mg/dL High 70-99 [facility] Serum or plasma calcium ash urement (mass/volume)Ordered By: Osmany Evans on 07-23-2024 Calcium [Mass/Vol] 9.1 mg/dL 7.6-11.0 [facility] Serum or plasma urea nitroge n measurement (mass/volume)Ordered By: Osmany Evans on 07-23-2024 Urea nitrogen [Mass/Vol] 19 mg/dL 4-19 [facility] Sodium levelOrdered By: Osmany Evans on 07-23-2024 Sodium [Moles/Vol] 136 mmol/L 133-145 [facility] Squamous epithelial cells de tection in urine sediment by light microscopyOrdered By: Osmany Evans on 07-23-2024 Epithelial cells.squamous LM Ql (Urine sed) 0 SEEN /hpf 0-5 [facility] Troponin T.cardiac [Mass/vol ume] in Serum or Plasma by High sensitivity methodOrdered By: Osmany Evans on 07-23-2024 Troponin T.cardiac High sensitivity method [Mass/Vol] 33 ng/L High <22 [facility] Troponin T.cardiac High sensitivity method [Mass/Vol] 36 ng/L High <22 [facility] Urinalysis, Completeon 07-23 BACTERIA 1+ /hpf Normal None Seen [facility] Comment on above: Order Comment: CLEAN CATCH Performed By: #### L 500.2500, L100.0100 #### [facility] [address] [place], [address] RBC 5-10 SEEN Normal [address] Comment on above: Order Comment: CLEAN CATCH Performed By: #### L 500.2500, L100.0100 #### [facility] [address] [place], [address] WBC 10-25 SEEN Normal 0-[address] [place] [address] Comment on above: Order Comment: CLEAN CATCH Performed By: #### L 500.2500, L100.0100 #### [facility] [address] [place], [address] EPI,SQUAMOUS 0 SEEN Normal 0-5 [facility] Comment on above: Order Comment: CLEAN CATCH Performed By: #### L 500.2500, L100.0100 #### [facility] [address] [place], [address] Mucus Ql (Urine sed) 0 SEEN Normal [facility] Comment on above: Order Comment: CLEAN CATCH Performed By: #### L 500.2500, L100.0100 #### [facility] [place], [address] Urine clarityOrdered By: Olga Evans on 07-23-2024 Clarity (U) Clear Clear [facility] Urine color determinationOrd ered By: Osmany Evans on 07-23-2024 Color (U) Yellow Yellow [facility] Urine glucose detectionOrder ed By: Osmany Evans on 07-23-2024 Glucose Ql (U) Normal mg/dl Normal [facility] Urine leukocyte esterase det ection by dipstickOrdered By: Osmany Evans on 07-23-2024 Leukocyte esterase Test strip Ql (U) 25 /ul High Negative [facility] Urine pHOrdered By: Osmany kerns on 07-23-2024 pH (U) 6.5 [pH] 5.0 - 8.0 [facility] Urine sediment bacteria coun t by microscopy (number/high power field)Ordered By: Osmany Evans on 07-23-2024 Bacteria LM.HPF (Urine sed) [#/Area] 1 /[HPF] None Seen [facility] Urine specific gravity measu rementOrdered By: Osmany Evans on 07-23-2024 Specific gravity (U) [Rel density] 1.010 1.002-1.030 [facility] Urine urobilinogen measureme ntOrdered By: Osmany Evans on 07-23-2024 Urobilinogen Ql (U) 1 mg/dl High Normal [facility] White blood cell (WBC) count Ordered By: Osmany Evans on 07-23-2024 WBC (Bld) [#/Vol] 10.7 10*3/uL 4.4-11.0 [facility] White blood cell countOrdere d By: Osmany Evans on 07-23-2024 White blood cell count 10-25 SEEN /hpf 0-5 [facility] Calculated total iron bindin g capacityOrdered By: Davis Armstrong on 05-26-2024 Total Iron Binding Capacity 299 ug/dL 250-450 [facility] Ferritinon 05-26-2024 Ferritin [Mass/Vol] 273 ng/mL Normal 37-417 [facility] Comment on above: Performed By: #### L 500.2500, L100.0100 #### [facility] [address] [place], [address] Iron (Unsp spec) [Mass/Mass] Ordered By: Davis Armstrong on 05-26-2024 Iron [Mass/Vol] 112 ug/dL 65-175 [facility] Iron measurement (mass/mass) Ordered By: Davis Armstrong on 05-26-2024 Iron (Unsp spec) [Mass/Mass] 112 ug/dL 65-175 [facility] Iron saturation [Mass fracti on]Ordered By: Davis Armstrong on 05-26-2024 Iron Saturation 37.0 % 9-55 [facility] Iron+Iron Binding Capacityon 05-26-2024 Iron [Mass/Vol] 112 ug/dL Normal 65-175 [facility] Comment on above: Performed By: #### L 500.2500, L100.0100 #### [facility] [address] [place], [address] IRON SATURATION 37.0 Normal 9-55 [facility] Comment on above: Performed By: #### L 500.2500, L100.0100 #### [facility] [address] [place], [address] TIBC 299 ug/dL Normal 250-450 [facility] Comment on above: Performed By: #### L 500.2500, L100.0100 #### [facility] [address] [place], [address] UIBC 187 ug/dL Low 228-428 [facility] Comment on above: Performed By: #### L 500.2500, L100.0100 #### [facility] [address] [place], [address] L503.0106on 05-26-2024 Cobalamin (Vitamin B12) [Mass/Vol] 651 pg/mL Normal 180-914 [facility] Comment on above: Performed By: #### L 500.2500, L100.0100 #### [facility] [place], [address] No Panel InformationOrdered By: Davis Armstrong on 05-26-2024 Unsaturated Iron Binding Capacity 187 ug/dL Low 228-428 [facility] Serum or plasma ferritin elham surement (mass/volume)Ordered By: Davis Armstrong on 05-26-2024 Ferritin [Mass/Vol] 273 ng/mL 37-417 [facility] Serum or plasma iron saturat ion measurement (mass fraction)Ordered By: Davis Armstrong on 05-26-2024 Iron saturation [Mass fraction] 37.0 % 9-55 [facility] Vitamin B12 ser/plasOrdered By: Davis Armstrong on 05-26-2024 Cobalamin (Vitamin B12) [Mass/Vol] 651 pg/mL 180-914 [facility] Absolute lymphocyte countOrd ered By: Davis Armstrong on 05-19-2024 Lymphocytes Auto (Unsp spec) [#/Vol] 0.85 10*3/uL 0.83-4.51 [facility] Absolute neutrophil countOrd ered By: Davis Armstrong on 05-19-2024 Neutrophils (Bld) [#/Vol] 4.0 10*3/uL 2.0-7.7 [facility] Albumin DL <= 20 mg/L (U) [M ass/Vol]Ordered By: Davis Armstrong on 05-19-2024 Urine Random Microalbumin 28.6 mg/L NO RANGE EST. [facility] Anion gap in Serum or Plasma Ordered By: Davis Armstrong on 05-19-2024 Anion gap [Moles/Vol] 13 mmol/L 5-15 [facility] Automated lymphocyte count a s percentage of total leukocytesOrdered By: Davis Armstrong on 05-19-2024 Lymphocytes/100 WBC Auto (Unsp spec) 15.5 % Low 19-41 [facility] BUN/creatinine ratioOrdered By: Davis Armstrong on 05-19-2024 Urea nitrogen/Creatinine [Mass ratio] 25.9 mg/mg High 10-20 [facility] Basophil percentageOrdered B y: Davis Armstrong on 05-19-2024 Basophils/100 WBC (Bld) 1.1 % High 0-[address] [facility] Bilirubin, totalOrdered By: Davis Armstrong on 05-19-2024 Bilirubin [Mass/Vol] 0.61 mg/dL 0.00-1.30 [facility] CBC W/Diff, Automatedon Absolute Lymph 0.85 X10 3/uL Normal 0.83-4.51 [facility] Comment on above: Order Comment: Order Date: 05/19/24Order Info: [id number] - CBCD Performed By: #### L 100.0100, L501.9985, L501.5200, L501.9520, L500.4050, L500.4100 ####[facility] [address] [place], [address] Absolute Neut 4.0 X10 3/uL Normal 2.0-7.7 [facility] Comment on above: Order Comment: Order Date: 05/19/24Order Info: [id number] - CBCD Performed By: #### L 100.0100, L501.9985, L501.5200, L501.9520, L500.4050, L500.4100 ####[facility] [address] [place], [address] Basophils/100 WBC (Bld) 1.1 % High 0-[address] [facility] Comment on above: Order Comment: Order Date: 05/19/24Order Info: [id number] - CBCD Performed By: #### L 100.0100, L501.9985, L501.5200, L501.9520, L500.4050, L500.4100 ####[facility] [address] [place], [address] Eosinophils/100 WBC (Bld) 2.2 % Normal 0-5 [facility] Comment on above: Order Comment: Order Date: 05/19/24Order Info: [id number] - CBCD Performed By: #### L 100.0100, L501.9985, L501.5200, L501.9520, L500.4050, L500.4100 ####[facility] [address] [place], [address] Erythrocyte distribution width (RBC) [Ratio] 12.7 % Normal 11.6-14.6 [facility] Comment on above: Order Comment: Order Date: 05/19/24Order Info: [id number] - CBCD Performed By: #### L 100.0100, L501.9985, L501.5200, L501.9520, L500.4050, L500.4100 ####[facility] [address] [place], [address]( Hematocrit (Bld) [Volume fraction] 38.2 % Low 40-54 [facility] Comment on above: Order Comment: Order Date: 05/19/24Order Info: [id number] - CBCD Performed By: #### L 100.0100, L501.9985, L501.5200, L501.9520, L500.4050, L500.4100 ####[facility] [address] [place], [address] Hemoglobin (Bld) [Mass/Vol] 12.7 g/dL Low 13.0-16.5 [facility] Comment on above: Order Comment: Order Date: 05/19/24Order Info: [id number] - CBCD Performed By: #### L 100.0100, L501.9985, L501.5200, L501.9520, L500.4050, L500.4100 ####[facility] [address] [facility] [place], [address] IG% 0.400 Normal 0.0-0.9 [facility] Comment on above: Order Comment: Order Date: 05/19/24Order Info: [id number] - CBCD Result Comment: IG% - Immature Granulocytes (promyelocytes, myelocytes and metamyelocytes) > 1% indicates that a LEFT SHIFT is Present. Performed By: #### L 100.0100, L501.9985, L501.5200, L501.9520, L500.4050, L500.4100 ####[facility] [address] [place], [address] Lymphocytes/100 WBC (Bld) 15.5 % Low 19-41 [facility] Comment on above: Order Comment: Order Date: 05/19/24Order Info: [id number] - CBCD Performed By: #### L 100.0100, L501.9985, L501.5200, L501.9520, L500.4050, L500.4100 ####[facility] [address] [place], [address] MCH (RBC) [Entitic mass] 30.8 pg Normal 27.0-32.0 [facility] Comment on above: Order Comment: Order Date: 05/19/24Order Info: [id number] - CBCD Performed By: #### L 100.0100, L501.9985, L501.5200, L501.9520, L500.4050, L500.4100 ####[facility] [address] [place], [address] MCHC (RBC) [Mass/Vol] 33.2 g/dL Normal 32-36 [facility] Comment on above: Order Comment: Order Date: 05/19/24Order Info: [id number] - CBCD Performed By: #### L 100.0100, L501.9985, L501.5200, L501.9520, L500.4050, L500.4100 ####[facility] [address] [place], [address] MCV (RBC) [Entitic vol] 92.7 fL Normal 80-[address] [facility] Comment on above: Order Comment: Order Date: 05/19/24Order Info: [id number] - CBCD Performed By: #### L 100.0100, L501.9985, L501.5200, L501.9520, L500.4050, L500.4100 ####[facility] [address] [place], [address] Monocytes/100 WBC (Bld) 7.5 % Normal 0-[address] [facility] Comment on above: Order Comment: Order Date: 05/19/24Order Info: [id number] - CBCD Performed By: #### L 100.0100, L501.9985, L501.5200, L501.9520, L500.4050, L500.4100 ####[facility] [address] [place], [address] Neutrophils/100 WBC (Bld) 73.3 % High 47-70 [facility] Comment on above: Order Comment: Order Date: 05/19/24Order Info: [id number] - CBCD Performed By: #### L 100.0100, L501.9985, L501.5200, L501.9520, L500.4050, L500.4100 ####[facility] [address] [place], [address] Nucleated RBC (Bld) [#/Vol] 0 10*3/uL Normal 0-5 [facility] Comment on above: Order Comment: Order Date: 05/19/24Order Info: [id number] - CBCD Performed By: #### L 100.0100, L501.9985, L501.5200, L501.9520, L500.4050, L500.4100 ####[facility] [address] [place], [address] Platelet mean volume (Bld) [Entitic vol] 10.8 fL Normal 6.2-12.0 [facility] Comment on above: Order Comment: Order Date: 05/19/24Order Info: [id number] - CBCD Performed By: #### L 100.0100, L501.9985, L501.5200, L501.9520, L500.4050, L500.4100 ####[facility] [address] [place], [address] Platelets (Bld) [#/Vol] 256 10*3/uL Normal 150-450 [facility] Comment on above: Order Comment: Order Date: 05/19/24Order Info: [id number] - CBCD Performed By: #### L 100.0100, L501.9985, L501.5200, L501.9520, L500.4050, L500.4100 ####[facility] [address] [place], [address] RBC (Bld) [#/Vol] 4.12 10*6/uL Low 4.6-6.2 [facility] Comment on above: Order Comment: Order Date: 05/19/24Order Info: [id number] - CBCD Performed By: #### L 100.0100, L501.9985, L501.5200, L501.9520, L500.4050, L500.4100 ####[facility] [address] [place], [address] RDW SD 43.1 fl Normal 35.1-43.9 [facility] Comment on above: Order Comment: Order Date: 05/19/24Order Info: [id number] - CBCD Performed By: #### L 100.0100, L501.9985, L501.5200, L501.9520, L500.4050, L500.4100 ####[facility] [address] [place], [address] WBC (Bld) [#/Vol] 5.5 10*3/uL Normal 4.4-11.0 [facility] Comment on above: Order Comment: Order Date: 05/19/24Order Info: [id number] - CBCD Performed By: #### L 100.0100, L501.9985, L501.5200, L501.9520, L500.4050, L500.4100 ####[facility] [address] [place], [place], [id number] Calculated very low density lipoprotein (VLDL) cholesterol measurementOrdered By: Davis Armstrong on 05-19-2024 Calculated very low density lipoprotein (VLDL) cholesterol measurement 10 mg/dL 5-40 [facility] VLDL Cholesterol 10 mg/dL 5-40 [facility] Carbon dioxide, total [Moles /volume] in Central venous bloodOrdered By: Davis Armstrong on 05-19-2024 CO2 [Moles/Vol] 19.7 mmol/L Low 21.0-32.0 [facility] Chloride assayOrdered By: Anuradha Armstrong on 05-19-2024 Chloride [Moles/Vol] 106 mmol/L 98-108 [facility] Comprehensive Metabolic Prof ilon 05-19-2024 Albumin [Mass/Vol] 4.1 g/dL Normal 3.4-4.8 [facility] Comment on above: Order Comment: Order Date: 05/19/24Order Info: [id number] - CMPOrder Info: [id number] - LIPIDOrder Info: - MGOrder Info: 3 - TSH Performed By: #### L 100.0100, L501.9985, L501.5200, L501.9520, L500.4050, L500.4100 ####[facility] [address] [place], [place], [id number] Albumin/Globulin [Mass ratio] 1.5 {ratio} Normal 0.9-2.4 [facility] Comment on above: Order Comment: Order Date: 05/19/24Order Info: [id number] - CMPOrder Info: [id number] - LIPIDOrder Info: - MGOrder Info: [id number] - TSH Performed By: #### L 100.0100, L501.9985, L501.5200, L501.9520, L500.4050, L500.4100 ####[facility] [address] [place], [address] ALK PHOS 93 U/L Normal 40-129 [facility] Comment on above: Order Comment: Order Date: 05/19/24Order Info: [id number] - CMPOrder Info: [id number] - LIPIDOrder Info: [id number] - MGOrder Info: [id number] - TSH Performed By: #### L 100.0100, L501.9985, L501.5200, L501.9520, L500.4050, L500.4100 ####[facility] [address] [place], [address] ALT [Catalytic activity/Vol] 16 U/L Normal <=46 [facility] Comment on above: Order Comment: Order Date: 05/19/24Order Info: [id number] - CMPOrder Info: [id number] - LIPIDOrder Info: [id number] - MGOrder Info: [id number] - TSH Performed By: #### L 100.0100, L501.9985, L501.5200, L501.9520, L500.4050, L500.4100 ####[facility] [address] [place], [address] AST [Catalytic activity/Vol] 28 U/L Normal <=37 [facility] Comment on above: Order Comment: Order Date: 05/19/24Order Info: [id number] - CMPOrder Info: [id number] - LIPIDOrder Info: [id number] - MGOrder Info: [id number] - TSH Performed By: #### L 100.0100, L501.9985, L501.5200, L501.9520, L500.4050, L500.4100 ####[facility] [address] [place], [address] Bilirubin [Mass/Vol] 0.61 mg/dL Normal 0.00-1.30 [facility] Comment on above: Order Comment: Order Date: 05/19/24Order Info: [id number] - CMPOrder Info: [id number] - LIPIDOrder Info: [id number] - MGOrder Info: [id number] - TSH Performed By: #### L 100.0100, L501.9985, L501.5200, L501.9520, L500.4050, L500.4100 ####[facility] [address] [place], [address] BUN/CRE 25.9 RATIO High 10-20 [facility] Comment on above: Order Comment: Order Date: 05/19/24Order Info: [id number] - CMPOrder Info: [id number] - LIPIDOrder Info: [id number] - MGOrder Info: 3 - TSH Performed By: #### L 100.0100, L501.9985, L501.5200, L501.9520, L500.4050, L500.4100 ####[facility] [address] [place], [address] Calcium [Mass/Vol] 9.0 mg/dL Normal 7.6-11.0 [facility] Comment on above: Order Comment: Order Date: 05/19/24Order Info: [id number] - CMPOrder Info: [id number] - LIPIDOrder Info: - MGOrder Info: [id number] - TSH Performed By: #### L 100.0100, L501.9985, L501.5200, L501.9520, L500.4050, L500.4100 ####[facility] [address] [place], [address] Chloride [Moles/Vol] 106 mmol/L Normal 98-108 [facility] Comment on above: Order Comment: Order Date: 05/19/24Order Info: [id number] - CMPOrder Info: [id number] - LIPIDOrder Info: [id number] - MGOrder Info: [id number] - TSH Performed By: #### L 100.0100, L501.9985, L501.5200, L501.9520, L500.4050, L500.4100 ####[facility] [address] [place], [place], [id number] CO2 [Moles/Vol] 19.7 mmol/L Low 21.0-32.0 [facility] Comment on above: Order Comment: Order Date: 05/19/24Order Info: [id number] - CMPOrder Info: [id number] - LIPIDOrder Info: [id number] - MGOrder Info: [id number] - TSH Performed By: #### L 100.0100, L501.9985, L501.5200, L501.9520, L500.4050, L500.4100 ####[facility] [address] [place], [address] Creatinine [Mass/Vol] 0.69 mg/dL Low 0.70-1.20 [facility] Comment on above: Order Comment: Order Date: 05/19/24Order Info: 07-1 - CMPOrder Info: [id number] - LIPIDOrder Info: [id number] - MGOrder Info: [id number] - TSH Performed By: #### L 100.0100, L501.9985, L501.5200, L501.9520, L500.4050, L500.4100 ####[facility] [address] [place], [place], [id number] GAP 13 Normal 5-15 [facility] Comment on above: Order Comment: Order Date: 05/19/24Order Info: [id number] - CMPOrder Info: [id number] - LIPIDOrder Info: [id number] - MGOrder Info: [id number] - TSH Performed By: #### L 100.0100, L501.9985, L501.5200, L501.9520, L500.4050, L500.4100 ####[facility] [address] [place], [place], [id number] GFR/1.73 sq M.predicted among non-blacks MDRD (S/P/Bld) [Vol rate/Area] 98 mL/min/{1.73_m2} Normal >60 [facility] Comment on above: Order Comment: Order Date: 05/19/24Order Info: [id number] - CMPOrder Info: [id number] - LIPIDOrder Info: [id number] - MGOrder Info: [id number] - TSH Result Comment: mL/m in/1.73m2 CKD-EPI Creatinine Equation (2020) Performed By: #### L 100.0100, L501.9985, L501.5200, L501.9520, L500.4050, L500.4100 ####[facility] [address] [place], [address] Globulin (S) [Mass/Vol] 2.8 g/dL Normal 2.2-4.[address] [facility] Comment on above: Order Comment: Order Date: 05/19/24Order Info: [id number] - CMPOrder Info: - LIPIDOrder Info: - MGOrder Info: [id number] - TSH Performed By: #### L 100.0100, L501.9985, L501.5200, L501.9520, L500.4050, L500.4100 ####[facility] [address] [place], [address] Glucose [Mass/Vol] 89 mg/dL Normal 70-99 [facility] Comment on above: Order Comment: Order Date: 05/19/24Order Info: 07- - CMPOrder Info: - LIPIDOrder Info: - MGOrder Info: [id number] - TSH Performed By: #### L 100.0100, L501.9985, L501.5200, L501.9520, L500.4050, L500.4100 ####[facility] [address] [place], [address] Potassium [Moles/Vol] 3.9 mmol/L Normal 3.3-5.1 [facility] Comment on above: Order Comment: Order Date: 05/19/24Order Info: 86- - CMPOrder Info: - LIPIDOrder Info: [id number] - MGOrder Info: [id number] - TSH Performed By: #### L 100.0100, L501.9985, L501.5200, L501.9520, L500.4050, L500.4100 ####[facility] [address] [place], [place], [address] Sodium [Moles/Vol] 139 mmol/L Normal 133-145 [facility] Comment on above: Order Comment: Order Date: 05/19/24Order Info: [id number] - CMPOrder Info: [id number] - LIPIDOrder Info: - MGOrder Info: [id number] - TSH Performed By: #### L 100.0100, L501.9985, L501.5200, L501.9520, L500.4050, L500.4100 ####[facility] [address] [place], [place], [id number] T PROT 6.8 g/dL Normal 5.9-8.4 [facility] Comment on above: Order Comment: Order Date: 05/19/24Order Info: [id number] - CMPOrder Info: - LIPIDOrder Info: - MGOrder Info: [id number] - TSH Performed By: #### L 100.0100, L501.9985, L501.5200, L501.9520, L500.4050, L500.4100 ####[facility] [address] [place], [place], [id number] Urea nitrogen [Mass/Vol] 18 mg/dL Normal 4-19 [facility] Comment on above: Order Comment: Order Date: 05/19/24Order Info: [id number] - CMPOrder Info: [id number] - LIPIDOrder Info: - MGOrder Info: [id number] - TSH Performed By: #### L 100.0100, L501.9985, L501.5200, L501.9520, L500.4050, L500.4100 ####[facility] [address] [place], [address] Eosinophil percentageOrdered By: Davis Armstrong on 05-19-2024 Eosinophils/100 WBC (Bld) 2.2 % 0-5 [facility] Erythrocyte distribution wid th ratioOrdered By: Davis Armstrong on 05-19-2024 Erythrocyte distribution width (RBC) [Ratio] 12.7 % 11.6-14.6 [facility] Erythrocyte distribution wid th standard deviationOrdered By: Davis Armstrong on 05-19-2024 Erythrocyte distribution width (RBC) [Entitic vol] 43.1 fL 35.1-43.9 [facility] Erythrocyte distribution width (RBC) [Ratio] 43.1 fl 35.1-43.9 [facility] GFR/1.73 sq M.predicted nirmal g non-blacks MDRD (S/P/Bld) [Vol rate/Area]Ordered By: Davis Armstrong on 05-19-2024 Estimated GFR (MDRD) Non-Af Amer 98 >60 [facility] Comment on above: mL/min/1.73m2 CKD-EP I Creatinine Equation (2020) Glomerular filtration rate ( GFR) estimation/1.73 sq m using serum, plasma, or whole bOrdered By: Davis Armstrong on 05-19-2024 GFR/1.73 sq M.predicted among non-blacks MDRD (S/P/Bld) [Vol rate/Area] 98 mL/min/{1.73_m2} >60 [facility] Comment on above: mL/min/1.73m2 CKD-EP I Creatinine Equation (2020) Hematocrit Auto (Bld) [Volum e fraction]Ordered By: Davis Armstrong on 05-19-2024 Hematocrit (Bld) [Volume fraction] 38.2 % Low 40-54 [facility] Hemoglobin A1con 05-19-2024 HbA1c (Bld) [Mass fraction] 6.4 % Normal <=5.6 [facility] Comment on above: Order Comment: Order Date: 05/19/24Order Info: [id number] - A1C Performed By: #### L 100.0100, L501.9985, L501.5200, L501.9520, L500.4050, L500.4100 ####[facility] [address] [place], [address] Hemoglobin A1c percentageOrd ered By: Davis Armstrong on 05-19-2024 HbA1c (Bld) [Mass fraction] 6.4 % >5.7 [facility] Hemoglobin measurementOrdere d By: Davis Armstrong on 05-19-2024 Hemoglobin (Bld) [Mass/Vol] 12.7 g/dL Low 13.0-16.5 [facility] Immature granulocytes/100 WB C Auto (Bld)Ordered By: Davis Armstrong on 05-19-2024 Immature granulocytes/100 WBC (Bld) 0.400 % 0.0-0.9 [facility] Comment on above: IG% - Immature Granu locytes (promyelocytes, myelocytes and metamyelocytes) > 1% indicates that a LEFT SHIFT is Present. LDL calc ser/plasOrdered By: Davis Armstrong on 05-19-2024 Cholesterol in LDL [Mass/Vol] 61 mg/dL [facility] Comment on above: Jhbvvuccmm=110-012 m g/dL & Higher Cuia=102 mg/dL or greater LDL Cholesterol, Calculated 61 mg/dL [facility] Comment on above: Zjbdazwhzu=295-516 m g/dL & Higher Cjrh=079 mg/dL or greater Laboratory - Chemistry and C hemistry - challengeOrdered By: Davis Armstrong on 05-19-2024 AST [Catalytic activity/Vol] 28 U/L <38 [facility] Lipid Profileon 05-19-2024 CHOL:HDL 2.32 Normal [facility] Comment on above: Order Comment: Order Date: 05/19/24Order Info: [id number] - CMPOrder Info: [id number] - LIPIDOrder Info: [id number] - MGOrder Info: [id number] - TSH Performed By: #### L 100.0100, L501.9985, L501.5200, L501.9520, L500.4050, L500.4100 ####[facility] [address] [place], [address] Cholesterol [Mass/Vol] 126 mg/dL Normal <=200 [facility] Comment on above: Order Comment: Order Date: 05/19/24Order Info: [id number] - CMPOrder Info: [id number] - LIPIDOrder Info: [id number] - MGOrder Info: 3 - TSH Result Comment: Chol esterol level, Desirable <200 mg/dL Borderline high cholesterol 200-239 mg/dL High cholesterol >=240 mg/dL Recommendations of the NCEP Adult Treatment Panel for the following risk-cutoff thresholds for the [place] population. Performed By: #### L 100.0100, L501.9985, L501.5200, L501.9520, L500.4050, L500.4100 ####[facility] [address] [place], [address] Cholesterol in HDL [Mass/Vol] 54 mg/dL Normal [facility] Comment on above: Order Comment: Order Date: 05/19/24Order Info: [id number] - CMPOrder Info: [id number] - LIPIDOrder Info: [id number] - MGOrder Info: 3 - TSH Result Comment: [place] Cholesterol Education Program (NCEP) guidelines: <40 mg/dL: Low HDL-cholesterol (major risk factor for CHD) >= 60 mg/dL: High HDL-cholesterol (negative risk factor for CHD) HDL-cholesterol is affected by a number of factors, e.g. smoking, exercise, hormones, sex and age. Performed By: #### L 100.0100, L501.9985, L501.5200, L501.9520, L500.4050, L500.4100 ####[facility] [address] [place], [place], [address](445) Cholesterol in LDL [Mass/Vol] 61 mg/dL Normal [facility] Comment on above: Order Comment: Order Date: 05/19/24Order Info: [id number] - CMPOrder Info: [id number] - LIPIDOrder Info: [id number] - MGOrder Info: [id number] - TSH Result Comment: Bord fdpnlu=072-246 mg/dL Higher Crcv=474 mg/dL or greater Performed By: #### L 100.0100, L501.9985, L501.5200, L501.9520, L500.4050, L500.4100 ####[facility] [address] [place], [address] Cholesterol in VLDL [Mass/Vol] 10 mg/dL Normal 5-40 [facility] Comment on above: Order Comment: Order Date: 05/19/24Order Info: [id number] - CMPOrder Info: [id number] - LIPIDOrder Info: [id number] - MGOrder Info: [id number] - TSH Performed By: #### L 100.0100, L501.9985, L501.5200, L501.9520, L500.4050, L500.4100 ####[facility] [address] [place], [address] Triglyceride [Mass/Vol] 52 mg/dL Normal [facility] Comment on above: Order Comment: Order Date: 05/19/24Order Info: [id number] - CMPOrder Info: [id number] - LIPIDOrder Info: [id number] - MGOrder Info: [id number] - TSH Result Comment: The drugs N-Acetylcysteine and Metamizole may falsely depress this assay. Normal range: <150 mg/dL Borderline High: 150-199 mg/dL High: 200-499 mg/dL Very High: >500 mg/dL Performed By: #### L 100.0100, L501.9985, L501.5200, L501.9520, L500.4050, L500.4100 ####[facility] [address] [place], [address] Lymphocytes Auto (Unsp spec) [#/Vol]Ordered By: Davis Armstrong on 05-19-2024 Lymphocytes (Bld) [#/Vol] 0.85 10*3/uL 0.83-4.51 [facility] Lymphocytes/100 WBC Auto (Un sp spec)Ordered By: Davis Armstrong on 05-19-2024 Lymphocytes/100 WBC (Bld) 15.5 % Low 19-41 [facility] MCV (mean corpuscular volume ) determinationOrdered By: Davis Armtsrong on 05-19-2024 MCV (RBC) [Entitic vol] 92.7 fL 80-[address] [facility] Magnesiumon 05-19-2024 Magnesium [Mass/Vol] 1.9 mg/dL Normal 1.5-2.2 [facility] Comment on above: Order Comment: Order Date: 05/19/24Order Info: [id number] - CMPOrder Info: [id number] - LIPIDOrder Info: [id number] - MGOrder Info: [id number] - TSH Performed By: #### L 100.0100, L501.9985, L501.5200, L501.9520, L500.4050, L500.4100 ####[facility] [address] [place], [address] Magnesium (Unsp spec) [Mass/ Vol]Ordered By: Davis Armstrong on 05-19-2024 Magnesium [Mass/Vol] 1.9 mg/dL 1.5-2.2 [facility] Magnesium measurement (mass/ volume)Ordered By: Davis Armstrong on 05-19-2024 Magnesium (Unsp spec) [Mass/Vol] 1.9 mg/dL 1.5-2.2 [facility] Mean corpuscular hemoglobin (MCH) determinationOrdered By: Davis Armstrong on 05-19-2024 MCH (RBC) [Entitic mass] 30.8 pg 27.0-32.0 [facility] Mean corpuscular hemoglobin concentration (MCHC) determinationOrdered By: Davis Armstrong on 05-19-2024 MCHC (RBC) [Mass/Vol] 33.2 g/dL 32-36 [facility] Mean platelet volume determi nationOrdered By: Davis Armstrong on 05-19-2024 Platelet mean volume (Bld) [Entitic vol] 10.8 fL 6.2-12.0 [facility] Microalbumin,Random Urineon 05-19-2024 MICROALBUMIN,UR 28.6 mg/L Normal NO RANGE EST. [facility] Comment on above: Performed By: #### L 502.0500 ####[facility] [address] [place], [address] Monocyte percentageOrdered B y: Davis Armstrong on 05-19-2024 Monocytes/100 WBC (Bld) 7.5 % 0-[address] [facility] Neutrophil percentageOrdered By: Davis Armstrong on 05-19-2024 Neutrophils/100 WBC (Bld) 73.3 % High 47-70 [facility] Nucleated red blood cell per centageOrdered By: Davis Armstrong on 05-19-2024 Nucleated RBC/100 WBC (Bld) [Ratio] 0 % 0-5 [facility] Platelet countOrdered By: Anuradha Armstrong on 05-19-2024 Platelets (Bld) [#/Vol] 256 10*3/uL 150-450 [facility] Potassium (Unsp spec) [Mass/ Vol]Ordered By: Davis Armstrong on 05-19-2024 Potassium [Moles/Vol] 3.9 mmol/L 3.3-5.1 [facility] Potassium measurement (mass/ volume)Ordered By: Davis Armstrong on 05-19-2024 Potassium (Unsp spec) [Mass/Vol] 3.9 mmol/L 3.3-5.1 [facility] RBC Auto (Bld) [#/Vol]Ordere d By: Davis Armstrong on 05-19-2024 RBC (Bld) [#/Vol] 4.12 10*6/uL Low 4.6-6.2 [facility] Screening total cholesterol/ high density lipoprotein (HDL) cholesterol ratioOrdered By: Davis Armstrong on 05-19-2024 Cholesterol.total/Choles terol in HDL [Mass ratio] 2.32 {ratio} [facility] Serum creatinine measurement (mass/volume)Ordered By: Davis Armstrong on 05-19-2024 Creatinine [Mass/Vol] 0.69 mg/dL Low 0.70-1.20 [facility] Serum globulin measurementOr dered By: Davis Armstrong on 05-19-2024 Globulin (S) [Mass/Vol] 2.8 g/dL 2.2-4.[address] [facility] Serum glucose measurement (m ass/volume)Ordered By: Davis Armstrong on 05-19-2024 Glucose [Mass/Vol] 89 mg/dL 70-99 [facility] Serum or plasma alanine sands otransferase (ALT) measurementOrdered By: Davis Armstrong on 05-19-2024 ALT [Catalytic activity/Vol] 16 U/L <47 [facility] Serum or plasma albumin ash urement (mass/volume)Ordered By: Davis Armstrong on 05-19-2024 Albumin [Mass/Vol] 4.1 g/dL 3.4-4.8 [facility] Serum or plasma albumin/glob ulin mass ratioOrdered By: Davis Armstrong on 05-19-2024 Albumin/Globulin [Mass ratio] 1.5 {ratio} 0.9-2.4 [facility] Serum or plasma alkaline katty sphatase measurementOrdered By: Davis Armstrong on 05-19-2024 ALP [Catalytic activity/Vol] 93 U/L 40-129 [facility] Serum or plasma calcium ash urement (mass/volume)Ordered By: Davis Armstrong on 05-19-2024 Calcium [Mass/Vol] 9.0 mg/dL 7.6-11.0 [facility] Serum or plasma cholesterol in HDL measurement (mass/volume)Ordered By: Davis Armstrong on 05-19-2024 Cholesterol in HDL [Mass/Vol] 54 mg/dL >40 [facility] Comment on above: National Cholesterol Education Program (NCEP) guidelines:<40 mg/dL: Low HDL-cholesterol (major risk factor for CHD)>= 60 mg/dL: High HDL-cholesterol (negative risk factor for CHD)HDL-cholesterol is affected by a number of factors, e.g. smoking, exercise, hormones, sex and age. Serum or plasma cholesterol measurement (mass/volume)Ordered By: Davis Armstrong on 05-19-2024 Cholesterol [Mass/Vol] 126 mg/dL <201 [facility] Comment on above: Cholesterol level, D esirable <200 mg/dLBorderline high cholesterol 200-239 mg/dLHigh cholesterol >=240 mg/dLRecommendations of the NCEP Adult Treatment Panel for the following risk-cutoff thresholds for the [place] population. Serum or plasma urea nitroge n measurement (mass/volume)Ordered By: Davis Armstrong on 05-19-2024 Urea nitrogen [Mass/Vol] 18 mg/dL 4-19 [facility] Sodium levelOrdered By: Davis Armstrong on 05-19-2024 Sodium [Moles/Vol] 139 mmol/L 133-145 [facility] TSH DL <= 0.005 mIU/L QnOrde red By: Davis Armstrong on 05-19-2024 Thyroid Stimulating Hormone (TSH) 2.270 uIU/mL 0.300-4.200 [facility] TSH Qn 2.270 uIU/mL 0.300-4.200 [facility] Thyroid Stim Hormone (TSH)on 05-19-2024 TSH 2.270 uIU/mL Normal 0.300-4.200 [facility] Comment on above: Order Comment: Order Date: 05/19/24Order Info: [id number] - CMPOrder Info: [id number] - LIPIDOrder Info: [id number] - MGOrder Info: [id number] - TSH Performed By: #### L 100.0100, L501.9985, L501.5200, L501.9520, L500.4050, L500.4100 ####[facility] [address] [facility] [place], [place], [id number] Total proteinOrdered By: Jarek Armstrong on 05-19-2024 Protein [Mass/Vol] 6.8 g/dL 5.9-8.4 [facility] Triglycerides measurementOrd ered By: Davis Armstrong on 05-19-2024 Triglyceride [Mass/Vol] 52 mg/dL <[address] [facility] Comment on above: The drugs N-Acetylcy steine and Metamizole may falsely depress this assay. Normal range: <150 mg/dLBorderline High: 150-199 mg/dLHigh: 200-499 mg/dLVery High: >500 mg/dL Urine albumin measurement wi detection limit of 20 mg/L or less (mass/volume)Ordered By: Davis Armstrong on 05-19-2024 Albumin DL <= 20 mg/L (U) [Mass/Vol] 28.6 mg/L NO RANGE EST. [facility] White blood cell (WBC) count Ordered By: Davis Armstrong on 05-19-2024 WBC (Bld) [#/Vol] 5.5 10*3/uL 4.4-11.0 [facility] PSA,Total - Annual Screenon 01-14-2024 PSA,TOT SCREEN 1.40 ng/mL Normal 0.00-4.00 [facility] Comment on above: Order Comment: Order Date: 01/14/24Order Info: [id number] - PSA Result Comment: This test was performed using the TPSA assay method for the [employer] chemistry system. Values obtained with different assay methods cannot be used interchangably. When changing PSA assays in the course of monitoring a patient, additional sequential testing should be carried out to confirm baseline values. Performed By: #### L 501.9910 ####[facility] [address] [place], [address] CBC W/Diff, Automatedon 08-16 Absolute Lymph 0.86 X10 3/uL Normal 0.83-4.51 [facility] Comment on above: Order Comment: Order Date: 05/09/23 Order Info: [id number] - CBCD Performed By: #### L 500.4050, L501.9985, L500.4100, L501.5200, L100.0100 #### [facility] [address] [place], [address] Absolute Neut 3.8 X10 3/uL Normal 2.0-7.7 [facility] Comment on above: Order Comment: Order Date: 05/09/23 Order Info: [id number] - CBCD Performed By: #### L 500.4050, L501.9985, L500.4100, L501.5200, L100.0100 #### [facility] [address] [place], [address] Basophils/100 WBC (Bld) 0.9 % Normal 0-[address] [facility] Comment on above: Order Comment: Order Date: 05/09/23 Order Info: [id number] - CBCD Performed By: #### L 500.4050, L501.9985, L500.4100, L501.5200, L100.0100 #### [facility] [address] [place], [address] Eosinophils/100 WBC (Bld) 3.6 % Normal 0-5 [facility] Comment on above: Order Comment: Order Date: 05/09/23 Order Info: [id number] - CBCD Performed By: #### L 500.4050, L501.9985, L500.4100, L501.5200, L100.0100 #### [facility] [address] [place], [address] Erythrocyte distribution width (RBC) [Ratio] 12.4 % Normal 11.6-14.6 [facility] Comment on above: Order Comment: Order Date: 05/09/23 Order Info: [id number] - CBCD Performed By: #### L 500.4050, L501.9985, L500.4100, L501.5200, L100.0100 #### [facility] [address] [place], [address] Hematocrit (Bld) [Volume fraction] 40.3 % Normal 40-54 [facility] Comment on above: Order Comment: Order Date: 05/09/23 Order Info: [id number]- - CBCD Performed By: #### L 500.4050, L501.9985, L500.4100, L501.5200, L100.0100 #### [facility] [address] [place], [address] Hemoglobin (Bld) [Mass/Vol] 13.4 g/dL Normal 13.0-16.5 [facility] Comment on above: Order Comment: Order Date: 05/09/23 Order Info: [id number] - CBCD Performed By: #### L 500.4050, L501.9985, L500.4100, L501.5200, L100.0100 #### [facility] [address] [place], [address] IG% 0.400 Normal 0.0-0.9 [facility] Comment on above: Order Comment: Order Date: 05/09/23 Order Info: [id number] - CBCD Result Comment: IG% - Immature Granulocytes (promyelocytes, myelocytes and metamyelocytes) > 1% indicates that a LEFT SHIFT is Present. Performed By: #### L 500.4050, L501.9985, L500.4100, L501.5200, L100.0100 #### [facility] [address] [place], [address] Lymphocytes/100 WBC (Bld) 16.1 % Low 19-41 [facility] Comment on above: Order Comment: Order Date: 05/09/23 Order Info: [id number] - CBCD Performed By: #### L 500.4050, L501.9985, L500.4100, L501.5200, L100.0100 #### [facility] [address] [place], [address] MCH (RBC) [Entitic mass] 30.4 pg Normal 27.0-32.0 [facility] Comment on above: Order Comment: Order Date: 05/09/23 Order Info: [id number] - CBCD Performed By: #### L 500.4050, L501.9985, L500.4100, L501.5200, L100.0100 #### [facility] [address] [place], [address] MCHC (RBC) [Mass/Vol] 33.3 g/dL Normal 32-36 [facility] Comment on above: Order Comment: Order Date: 05/09/23 Order Info: [id number] - CBCD Performed By: #### L 500.4050, L501.9985, L500.4100, L501.5200, L100.0100 #### [facility] [address] [place], [address] MCV (RBC) [Entitic vol] 91.4 fL Normal 80-[address] [facility] Comment on above: Order Comment: Order Date: 05/09/23 Order Info: [id number] - CBCD Performed By: #### L 500.4050, L501.9985, L500.4100, L501.5200, L100.0100 #### [facility] [address] [place], [address] Monocytes/100 WBC (Bld) 8.4 % Normal 0-[address] [facility] Comment on above: Order Comment: Order Date: 05/09/23 Order Info: [id number] - CBCD Performed By: #### L 500.4050, L501.9985, L500.4100, L501.5200, L100.0100 #### [facility] [address] [place], [address] Neutrophils/100 WBC (Bld) 70.6 % High 47-70 [facility] Comment on above: Order Comment: Order Date: 05/09/23 Order Info: [id number] - CBCD Performed By: #### L 500.4050, L501.9985, L500.4100, L501.5200, L100.0100 #### [facility] [address] [place], [address] Nucleated RBC (Bld) [#/Vol] 0 10*3/uL Normal 0-5 [facility] Comment on above: Order Comment: Order Date: 05/09/23 Order Info: [id number] - CBCD Performed By: #### L 500.4050, L501.9985, L500.4100, L501.5200, L100.0100 #### [facility] [address] [place], [address] Platelet mean volume (Bld) [Entitic vol] 10.4 fL Normal 6.2-12.0 [facility] Comment on above: Order Comment: Order Date: 05/09/23 Order Info: [id number] - CBCD Performed By: #### L 500.4050, L501.9985, L500.4100, L501.5200, L100.0100 #### [facility] [address] [place], [address] Platelets (Bld) [#/Vol] 245 10*3/uL Normal 150-450 [facility] Comment on above: Order Comment: Order Date: 05/09/23 Order Info: [id number] - CBCD Performed By: #### L 500.4050, L501.9985, L500.4100, L501.5200, L100.0100 #### [facility] [address] [place], [address] RBC (Bld) [#/Vol] 4.41 10*6/uL Low 4.6-6.2 [facility] Comment on above: Order Comment: Order Date: 05/09/23 Order Info: [id number] - CBCD Performed By: #### L 500.4050, L501.9985, L500.4100, L501.5200, L100.0100 #### [facility] [address] [place], [address] RDW SD 41.7 fl Normal 35.1-43.9 [facility] Comment on above: Order Comment: Order Date: 05/09/23 Order Info: [id number] - CBCD Performed By: #### L 500.4050, L501.9985, L500.4100, L501.5200, L100.0100 #### [facility] [address] [place], [address] WBC (Bld) [#/Vol] 5.3 10*3/uL Normal 4.4-11.0 [facility] Comment on above: Order Comment: Order Date: 05/09/23 Order Info: [id number] - CBCD Performed By: #### L 500.4050, L501.9985, L500.4100, L501.5200, L100.0100 #### [facility] [address] [place], [address] Comprehensive Metabolic Prof ilon 09-10-2023 Albumin [Mass/Vol] 3.7 g/dL Normal 3.2-5.0 [facility] Comment on above: Order Comment: Order Date: 05/09/23 Order Info: [id number] - CMP Order Info: [id number] - LIPID Order Info: [id number] - MG Performed By: #### L 500.4050, L501.9985, L500.4100, L501.5200, L100.0100 #### [facility] [address] [place], [address] Albumin/Globulin [Mass ratio] 1.1 {ratio} Normal 0.9-2.4 [facility] Comment on above: Order Comment: Order Date: 05/09/23 Order Info: [id number] - CMP Order Info: [id number] - LIPID Order Info: [id number] - MG Performed By: #### L 500.4050, L501.9985, L500.4100, L501.5200, L100.0100 #### [facility] [address] [place], [address] ALK P 85 U/L Normal 45-117 [facility] Comment on above: Order Comment: Order Date: 05/09/23 Order Info: [id number] - CMP Order Info: [id number] - LIPID Order Info: [id number] - MG Performed By: #### L 500.4050, L501.9985, L500.4100, L501.5200, L100.0100 #### [facility] [address] [place], [address] ALT [Catalytic activity/Vol] 18 U/L Normal 16-61 [facility] Comment on above: Order Comment: Order Date: 05/09/23 Order Info: [id number] - CMP Order Info: [id number] - LIPID Order Info: [id number] - MG Performed By: #### L 500.4050, L501.9985, L500.4100, L501.5200, L100.0100 #### [facility] [address] [place], [address] AST [Catalytic activity/Vol] 19 U/L Normal 15-37 [facility] Comment on above: Order Comment: Order Date: 05/09/23 Order Info: [id number] - CMP Order Info: - LIPID Order Info: [id number] - MG Performed By: #### L 500.4050, L501.9985, L500.4100, L501.5200, L100.0100 #### [facility] [address] [place], [address] Bilirubin [Mass/Vol] 1.00 mg/dL Normal 0.20-1.00 [facility] Comment on above: Order Comment: Order Date: 05/09/23 Order Info: [id number]- - CMP Order Info: - LIPID Order Info: [id number] - MG Result Comment: For patients on eltrombopag therapy, use of Dimension [place] TBIL is not recommended. Performed By: #### L 500.4050, L501.9985, L500.4100, L501.5200, L100.0100 #### [facility] [address] [place], [address] BUN/CRE 23.3 RATIO High 10-20 [facility] Comment on above: Order Comment: Order Date: 05/09/23 Order Info: [id number] - CMP Order Info: [id number] - LIPID Order Info: [id number] - MG Performed By: #### L 500.4050, L501.9985, L500.4100, L501.5200, L100.0100 #### [facility] [address] [place], [address] CA,Total 9.1 mg/dL Normal 8.5-10.1 [facility] Comment on above: Order Comment: Order Date: 05/09/23 Order Info: [id number] - CMP Order Info: [id number] - LIPID Order Info: [id number] - MG Performed By: #### L 500.4050, L501.9985, L500.4100, L501.5200, L100.0100 #### [facility] [address] [place], [address] Chloride [Moles/Vol] 108 mmol/L High 98-107 [facility] Comment on above: Order Comment: Order Date: 05/09/23 Order Info: [id number] - CMP Order Info: [id number] - LIPID Order Info: [id number] - MG Performed By: #### L 500.4050, L501.9985, L500.4100, L501.5200, L100.0100 #### [facility] [address] [place], [address] CO2 [Moles/Vol] 23.0 mmol/L Normal 21.0-32.0 [facility] Comment on above: Order Comment: Order Date: 05/09/23 Order Info: [id number]- - CMP Order Info: [id number] - LIPID Order Info: [id number] - MG Performed By: #### L 500.4050, L501.9985, L500.4100, L501.5200, L100.0100 #### [facility] [address] [place], [address] Creatinine [Mass/Vol] 0.86 mg/dL Normal 0.70-1.30 [facility] Comment on above: Order Comment: Order Date: 05/09/23 Order Info: [id number] - CMP Order Info: [id number] - LIPID Order Info: [id number] - MG Result Comment: The validity of the calculated GFR GFRAA in patients over 70 years has not been determined. Clinical correlation is essential. Performed By: #### L 500.4050, L501.9985, L500.4100, L501.5200, L100.0100 #### [facility] [address] [place], [address] EST GFR - AA 113 mL/min Normal >60 [facility] Comment on above: Order Comment: Order Date: 05/09/23 Order Info: [id number] - CMP Order Info: [id number] - LIPID Order Info: [id number] - MG Result Comment: Afri can [place] GFR Calc Performed By: #### L 500.4050, L501.9985, L500.4100, L501.5200, L100.0100 #### [facility] [address] [place], [address] GAP 7 Normal 5-15 [facility] Comment on above: Order Comment: Order Date: 05/09/23 Order Info: [id number] - CMP Order Info: [id number] - LIPID Order Info: [id number] - MG Performed By: #### L 500.4050, L501.9985, L500.4100, L501.5200, L100.0100 #### [facility] [address] [place], [address] GFR/1.73 sq M.predicted among non-blacks MDRD (S/P/Bld) [Vol rate/Area] 93 mL/min/{1.73_m2} Normal >60 [facility] Comment on above: Order Comment: Order Date: 05/09/23 Order Info: [id number] - CMP Order Info: [id number] - LIPID Order Info: [id number] - MG Result Comment: Non- GFR Calc Performed By: #### L 500.4050, L501.9985, L500.4100, L501.5200, L100.0100 #### [facility] [address] [place], [address] Globulin (S) [Mass/Vol] 3.5 g/dL Normal 2.2-4.[address] [facility] Comment on above: Order Comment: Order Date: 05/09/23 Order Info: [id number] - CMP Order Info: [id number] - LIPID Order Info: [id number] - MG Performed By: #### L 500.4050, L501.9985, L500.4100, L501.5200, L100.0100 #### [facility] [address] [place], [address] Glucose [Mass/Vol] 105 mg/dL Normal 74-106 [facility] Comment on above: Order Comment: Order Date: 05/09/23 Order Info: [id number]- - CMP Order Info: [id number] - LIPID Order Info: [id number] - MG Result Comment: Fast ing Glucose result from 100 to 125 mg/dL suggests IMPAIRED HOMEOSTASIS per A.D.A. criteria. Performed By: #### L 500.4050, L501.9985, L500.4100, L501.5200, L100.0100 #### [facility] [address] [place], [address] Potassium [Moles/Vol] 3.8 mmol/L Normal 3.5-5.1 [facility] Comment on above: Order Comment: Order Date: 05/09/23 Order Info: [id number]- - CMP Order Info: [id number] - LIPID Order Info: [id number] - MG Performed By: #### L 500.4050, L501.9985, L500.4100, L501.5200, L100.0100 #### [facility] [address] [place], [address] Sodium [Moles/Vol] 138 mmol/L Normal 136-145 [facility] Comment on above: Order Comment: Order Date: 05/09/23 Order Info: [id number] - CMP Order Info: [id number] - LIPID Order Info: [id number] - MG Performed By: #### L 500.4050, L501.9985, L500.4100, L501.5200, L100.0100 #### [facility] [address] [place], [address] T PROT 7.2 g/dL Normal 6.4-8.2 [facility] Comment on above: Order Comment: Order Date: 05/09/23 Order Info: [id number] - CMP Order Info: [id number] - LIPID Order Info: [id number] - MG Performed By: #### L 500.4050, L501.9985, L500.4100, L501.5200, L100.0100 #### [facility] [address] [place], [address] Urea nitrogen [Mass/Vol] 20 mg/dL High 7-18 [facility] Comment on above: Order Comment: Order Date: 05/09/23 Order Info: [id number] - CMP Order Info: [id number] - LIPID Order Info: [id number] - MG Performed By: #### L 500.4050, L501.9985, L500.4100, L501.5200, L100.0100 #### [facility] [address] [place], [address] Hemoglobin A1con 09-10-2023 HbA1c (Bld) [Mass fraction] 6.0 % High 3.8-5.6 [facility] Comment on above: Order Comment: Order Date: 05/09/23 Order Info: [id number] - A1C Result Comment: Norm al < 5.7 % Prediabetic 5.7 - 6.4 % Diabetic >or= 6.5 % Please note range changes. Performed By: #### L 500.4050, L501.9985, L500.4100, L501.5200, L100.0100 #### [facility] [address] [place], [address] Lipid Profileon 09-10-2023 Cholesterol [Mass/Vol] 148 mg/dL Normal 200 [facility] Comment on above: Order Comment: Order Date: 05/09/23 Order Info: [id number] - CMP Order Info: [id number] - LIPID Order Info: [id number] - MG Result Comment: <200 mg/dL Desirable 200-240 mg/dL Borderline >240 mg/dL High Risk Performed By: #### L 500.4050, L501.9985, L500.4100, L501.5200, L100.0100 #### [facility] [address] [place], [address] Cholesterol in HDL [Mass/Vol] 60 mg/dL Normal [facility] Comment on above: Order Comment: Order Date: 05/09/23 Order Info: [id number] - CMP Order Info: [id number] - LIPID Order Info: [id number] - MG Result Comment: The drugs N-Acetylcysteine and Metamizole may falsely depress this assay. Reference Range HDL <40 mg/dL Low HDL Cholesterol HDL >or= 60 mg/dL High HDL Cholesterol Performed By: #### L 500.4050, L501.9985, L500.4100, L501.5200, L100.0100 #### [facility] [address] [place], [address] Cholesterol in LDL [Mass/Vol] 74 mg/dL Normal 0-130 [facility] Comment on above: Order Comment: Order Date: 05/09/23 Order Info: [id number] - CMP Order Info: [id number] - LIPID Order Info: [id number] - MG Performed By: #### L 500.4050, L501.9985, L500.4100, L501.5200, L100.0100 #### [facility] [address] [place], [address] Cholesterol in VLDL [Mass/Vol] 14 mg/dL Normal 5-40 [facility] Comment on above: Order Comment: Order Date: 05/09/23 Order Info: [id number] - CMP Order Info: [id number] - LIPID Order Info: [id number] - MG Performed By: #### L 500.4050, L501.9985, L500.4100, L501.5200, L100.0100 #### [facility] [address] [place], [address] Triglyceride [Mass/Vol] 68 mg/dL Normal [facility] Comment on above: Order Comment: Order Date: 05/09/23 Order Info: [id number] - CMP Order Info: [id number] - LIPID Order Info: [id number] - MG Result Comment: The drugs N-Acetylcysteine and Metamizole may falsely depress this assay. Serum Triglycerides Reference Interval Normal <150 mg/dL Borderline high 150 - 199 mg/dL High 200 - 499 mg/dL Very High > or = 500 mg/dL Performed By: #### L 500.4050, L501.9985, L500.4100, L501.5200, L100.0100 #### [facility] [address] [place], [address] Magnesiumon 09-10-2023 Magnesium [Mass/Vol] 2.1 mg/dL Normal 1.6-2.6 [facility] Comment on above: Order Comment: Order Date: 05/09/23 Order Info: [id number] - CMP Order Info: [id number] - LIPID Order Info: [id number] - MG Performed By: #### L 500.4050, L501.9985, L500.4100, L501.5200, L100.0100 #### [facility] [address] [place], [address] Urinalysis, Completeon 09-09 BACTERIA 0 SEEN Normal None Seen [facility] Comment on above: Order Comment: CLEAN CATCH Performed By: #### L 400.0001 ####[facility] [address] [place], [address] EPI,SQUAMOUS 0 SEEN Normal 0-5 [facility] Comment on above: Order Comment: CLEAN CATCH Performed By: #### L 400.0001 ####[facility] [address] [place], [address] Mucus Ql (Urine sed) 0 SEEN Normal [facility] Comment on above: Order Comment: CLEAN CATCH Performed By: #### L 400.0001 ####[facility] [id number] [place], [address] RBC 0 SEEN Normal 0-5 [facility] Comment on above: Order Comment: CLEAN CATCH Performed By: #### L 400.0001 ####[facility] [id number] [place], [address] WBC 0 SEEN Normal 0-5 [facility] Comment on above: Order Comment: CLEAN CATCH Performed By: #### L 400.0001 ####[facility] [id number] [place], [place], [id number] Absolute lymphocyte countOrd ered By: Davis Armstrong on 05-08-2023 Lymphocytes Auto (Unsp spec) [#/Vol] 0.83 10*3/uL 0.83-4.51 [facility] Automated lymphocyte count a s percentage of total leukocytesOrdered By: Davis Armstrong on 05-08-2023 Lymphocytes/100 WBC Auto (Unsp spec) 10.3 % 19-41 [facility] Basophil percentageOrdered B y: Davis Armstrong on 05-08-2023 Basophils/100 WBC (Bld) 0.7 % 0-[address] [facility] Bilirubin [Mass/Vol] 1.10 mg/dL 0.20-1.00 [facility] Comment on above: For patients on eltr ombopag therapy, use of Dimension [place] TBIL is not recommended. Chloride [Moles/Vol] 109 mmol/L 98-107 [facility] Cholesterol [Mass/Vol] 139 mg/dL <200 [facility] Comment on above: <200 mg/dL Desirable 200-240 mg/dL Borderline >240 mg/dL High Risk Eosinophils/100 WBC (Bld) 1.1 % 0-5 [facility] Glucose [Mass/Vol] 111 mg/dL 74-106 [facility] Comment on above: Fasting Glucose resu lt from 100 to 125 mg/dL suggests IMPAIRED HOMEOSTASIS per A.D.A. criteria. Hemoglobin (Bld) [Mass/Vol] 13.9 g/dL 13.0-16.5 [facility] Monocytes/100 WBC (Bld) 8.3 % 0-[address] [facility] Neutrophils (Bld) [#/Vol] 6.4 10*3/uL 2.0-7.7 [facility] Neutrophils/100 WBC (Bld) 79.2 % 47-70 [facility] Potassium [Moles/Vol] 3.8 mmol/L 3.5-5.1 [facility] Protein [Mass/Vol] 7.3 g/dL 6.4-8.2 [facility] Sodium [Moles/Vol] 136 mmol/L 136-145 [facility] Triglyceride [Mass/Vol] 93 mg/dL <[address] [facility] Comment on above: The drugs N-Acetylcy steine and Metamizole may falsely depress this assay.Serum Triglycerides Reference Interval Normal <150 mg/dL Borderline high 150 - 199 mg/dL High 200 - 499 mg/dL Very High > or = 500 mg/dL WBC (Bld) [#/Vol] 8.1 10*3/uL 4.4-11.0 [facility] Bilirubin Test strip Ql (U)O rdered By: Davis Armstrong on 05-08-2023 Bilirubin Ql (U) Negative Negative [facility] Determination of erythrocyte mean corpuscular volume (MCV)Ordered By: Davis Armstrong on 05-08-2023 MCV (RBC) [Entitic vol] 91.5 fL 80-[address] [facility] Erythrocyte distribution wid th ratioOrdered By: Davis Armstrong on 05-08-2023 Erythrocyte distribution width (RBC) [Ratio] 12.9 % 11.6-14.6 [facility] Erythrocyte distribution wid th standard deviationOrdered By: Davis Armstrong on 05-08-2023 Erythrocyte distribution width (RBC) [Entitic vol] 43.3 fL 35.1-43.9 [facility] Hematocrit Auto (Bld) [Volum e fraction]Ordered By: Davis Armstrong on 05-08-2023 Hematocrit (Bld) [Volume fraction] 41.0 % 40-54 [facility] Immature granulocytes/100 WB C Auto (Bld)Ordered By: Davis Armstrong on 05-08-2023 Immature granulocytes/100 WBC (Bld) 0.400 % 0.0-0.9 [facility] Comment on above: IG% - Immature Granu locytes (promyelocytes, myelocytes and metamyelocytes) > 1% indicates that a LEFT SHIFT is Present. Ketones Test strip Ql (U)Ord ered By: Davis Armstrong on 05-08-2023 Ketones Ql (U) Negative Negative [facility] - Chemistry and C hemistry - challengeOrdered By: Davis Armstrong on 05-08-2023 Albumin/Globulin [Mass ratio] 1.1 {ratio} 0.9-2.4 [facility] ALP [Catalytic activity/Vol] 99 U/L 45-117 [facility] ALT [Catalytic activity/Vol] 18 U/L 16-61 [facility] Cholesterol in HDL [Mass/Vol] 58 mg/dL >40 [facility] Comment on above: The drugs N-Acetylcy steine and Metamizole may falsely depress this assay. Reference Range HDL <40 mg/dL Low HDL Cholesterol HDL >or= 60 mg/dL High HDL Cholesterol Cholesterol in LDL [Mass/Vol] 62 mg/dL 0-130 [facility] CO2 [Moles/Vol] 24.0 mmol/L 21.0-32.0 [facility] Globulin (S) [Mass/Vol] 3.4 g/dL 2.2-4.[address] [facility] Magnesium [Mass/Vol] 2.0 mg/dL 1.6-2.6 [facility] Urea nitrogen/Creatinine [Mass ratio] 26.6 mg/mg 10-20 [facility] - Hematology and Cell countsOrdered By: Davis Armstrong on 05-08-2023 MCH (RBC) [Entitic mass] 31.0 pg 27.0-32.0 [facility] MCHC (RBC) [Mass/Vol] 33.9 g/dL 32-36 [facility] Nucleated RBC/100 WBC (Bld) [Ratio] 0 % 0-5 [facility] Platelet mean volume (Bld) [Entitic vol] 9.9 fL 6.2-12.0 [facility] Platelets (Bld) [#/Vol] 265 10*3/uL 150-450 [facility] Nitrite Test strip Ql (U)Ord ered By: Davis Armstrong on 05-08-2023 Nitrite Ql (U) Negative Negative [facility] No Panel InformationOrdered By: Davis Armstrong on 05-08-2023 Estimated GFR (MDRD) Amer 139 mL/min >60 [facility] Comment on above: GFR Calc Estimated GFR (MDRD) Non-Af Amer 115 mL/min >60 [facility] Comment on above: Non- GFR Calc VLDL Cholesterol 19 mg/dL 5-40 [facility] Protein Test strip Ql (U)Ord ered By: Davis Armstrong on 05-08-2023 Protein Ql (U) 15 mg/dl Negative [facility] RBC Auto (Bld) [#/Vol]Ordere d By: Davis Armstrong on 05-08-2023 RBC (Bld) [#/Vol] 4.48 10*6/uL 4.6-6.2 [facility] Serum or plasma calcium ash urement (mass/volume)Ordered By: Davis Armstrong on 05-08-2023 Calcium [Mass/Vol] 9.1 mg/dL 8.5-10.1 [facility] Serum or plasma creatinine m easurement (mass/volume)Ordered By: Davis Armstrong on 05-08-2023 Creatinine [Mass/Vol] 0.71 mg/dL 0.70-1.30 [facility] Comment on above: The validity of the calculated GFR & GFRAA in patients over 70 years has not been determined. Clinical correlation is essential. Serum or plasma thyroid stim ulating hormone (TSH) measurement (units/volume)Ordered By: Davis Armstrong on 05-08-2023 TSH Qn 2.31 uIU/mL 0.358-3.74 [facility] Serum or plasma urea nitroge n measurement (mass/volume)Ordered By: Davis Armstrong on 05-08-2023 Urea nitrogen [Mass/Vol] 19 mg/dL 7-18 [facility] Thin prep Papanicolaou smear with manual screeningOrdered By: Davis Armstrong on 05-08-2023 Thin prep Papanicolaou smear with manual screening 3.9 g/dL 3.2-5.0 [facility] Thin prep Papanicolaou smear with manual screening 17 U/L 15-37 [facility] Thin prep Papanicolaou smear with manual screening 3 5-15 [facility] Urine blood detectionOrdered By: Davis Armstrong on 05-08-2023 RBC Ql (U) 10 /ul Negative [facility] Urine clarityOrdered By: Jarek Armstrong on 05-08-2023 Clarity (U) Clear Clear [facility] Urine color determinationOrd ered By: Davis Armstrong on 05-08-2023 Color (U) Straw Yellow [facility] Urine glucose detectionOrder ed By: Davis Armstrong on 05-08-2023 Glucose Ql (U) Normal mg/dl Normal [facility] Urine leukocyte esterase det ection by dipstickOrdered By: Davis Armstrong on 05-08-2023 Leukocyte esterase Test strip Ql (U) Negative Negative [facility] Urine pHOrdered By: Davis waterman on 05-08-2023 pH (U) 6.0 [pH] 5.0 - 8.0 [facility] Urine specific gravity measu rementOrdered By: Davis Armstrong on 05-08-2023 Specific gravity (U) [Rel density] 1.015 1.002-1.030 [facility] Urine urobilinogen measureme ntOrdered By: Davis Armstrong on 05-08-2023 Urobilinogen Ql (U) Normal mg/dl Normal [facility] Whole blood hemoglobin A1c/t otal hemoglobin ratio (mass fraction)Ordered By: Davis Armstrong on 05-08-2023 HbA1c (Bld) [Mass fraction] 6.3 % 3.8-5.6 [facility] Comment on above: Normal < 5.7 % Predi abetic 5.7 - 6.4 % Diabetic >or= 6.5 % Please note range changes. No Panel InformationOrdered By: Davis Armstrong on 01-08-2023 Prostate Specific Antigen Screen 1.48 ng/mL 0.00-4.00 [facility] Comment on above: This test was perfor med using the TPSA assay method for the[facility] system. Values obtained with differentassay methods cannot be used interchangably.When changing PSA assays in the course of monitoring apatient, additional sequential testing should be carriedout to confirm baseline values. Absolute lymphocyte countOrd ered By: Dane Sterling on 12-27-2022 Lymphocytes Auto (Unsp spec) [#/Vol] 0.82 10*3/uL 0.83-4.51 [facility] Basophil percentageOrdered B y: Dane Sterling on 12-27-2022 Basophils/100 WBC (Bld) 1.1 % 0-[address] [facility] Chloride [Moles/Vol] 108 mmol/L 98-107 [facility] Eosinophils/100 WBC (Bld) 4.0 % 0-5 [facility] Glucose [Mass/Vol] 108 mg/dL 74-106 [facility] Comment on above: Fasting Glucose resu lt from 100 to 125 mg/dL suggests IMPAIRED HOMEOSTASIS per A.D.A. criteria. Neutrophils (Bld) [#/Vol] 3.6 10*3/uL 2.0-7.7 [facility] Neutrophils/100 WBC (Bld) 68.5 % 47-70 [facility] Potassium [Moles/Vol] 3.4 mmol/L 3.5-5.1 [facility] Sodium [Moles/Vol] 138 mmol/L 136-145 [facility] WBC (Bld) [#/Vol] 5.2 10*3/uL 4.4-11.0 [facility] Blood erythrocytes count (nu mber/volume)Ordered By: Dane Sterling on 12-27-2022 RBC (Bld) [#/Vol] 4.41 10*6/uL 4.6-6.2 [facility] Blood hemoglobin measurement (mass/volume)Ordered By: Dane Sterling on 12-27-2022 Hemoglobin (Bld) [Mass/Vol] 13.5 g/dL 13.0-16.5 [facility] Blood lymphocytes/100 leukoc ytesOrdered By: Dane Sterling on 12-27-2022 Lymphocytes/100 WBC (Bld) 15.7 % 19-41 [facility] Blood monocytes/100 leukocyt esOrdered By: Dane Sterling on 12-27-2022 Monocytes/100 WBC (Bld) 10.3 % 0-[address] [facility] Blood platelet mean volumeOr dered By: Dane Sterling on 12-27-2022 Platelet mean volume (Bld) [Entitic vol] 10.1 fL 6.2-12.0 [facility] Determination of erythrocyte mean corpuscular volume (MCV)Ordered By: Dane Sterling on 12-27-2022 MCV (RBC) [Entitic vol] 92.7 fL 80-[address] [facility] Hematocrit Auto (Bld) [Volum e fraction]Ordered By: Dane Sterling on 12-27-2022 Hematocrit (Bld) [Volume fraction] 40.9 % 40-54 [facility] - Chemistry and C hemistry - challengeOrdered By: Dane Sterling on 12-27-2022 CO2 [Moles/Vol] 27.0 mmol/L 21.0-32.0 [facility] Urea nitrogen/Creatinine [Mass ratio] 23.6 mg/mg 10-20 [facility] - Hematology and Cell countsOrdered By: Dane Sterling on 12-27-2022 Erythrocyte distribution width (RBC) [Entitic vol] 42.6 fL 35.1-43.9 [facility] Erythrocyte distribution width (RBC) [Ratio] 12.5 % 11.6-14.6 [facility] Immature granulocytes/100 WBC (Bld) 0.400 % 0.0-0.9 [facility] Comment on above: IG% - Immature Granu locytes (promyelocytes, myelocytes and metamyelocytes) > 1% indicates that a LEFT SHIFT is Present. MCH (RBC) [Entitic mass] 30.6 pg 27.0-32.0 [facility] Nucleated RBC/100 WBC (Bld) [Ratio] 0 % 0-5 [facility] MCHC Auto (RBC) [Mass/Vol]Or dered By: Dane Sterling on 12-27-2022 MCHC (RBC) [Mass/Vol] 33.0 g/dL 32-36 [facility] No Panel InformationOrdered By: Dane Sterling on 12-27-2022 D-Dimer Quantitative (PE/DVT) 0.56 FEU/ug/m 0.27-0.49 [facility] Comment on above: D-Dimer ELEVATED (>0 .49): Additional studies and clinicalassessments are indicated to conclude diagnosis of:Deep Vein Thrombosis (DVT) or Pulmonary Embolism (PE)CRITICAL VALUE VERIFIED. CALLED TO TRAM GRANADOS (ER)12/27/22 0857 [address].RESULTS READ BACK BY SAME. Estimated Creatinine Clearance Calc 79.18 ml/min [facility] Estimated GFR (MDRD) Amer 121 mL/min >60 [facility] Comment on above: GFR Calc Estimated GFR (MDRD) Non-Af Amer 100 mL/min >60 [facility] Comment on above: Non- GFR Calc Troponin I High Sensitivity 8 pg/mL 3.0-78.0 [facility] Comment on above: Please Note: New Candie t Units and Gender Specific Reference Ranges. For more information see Policy Stat Procedure [place] High Sensitivity Troponin (TNIH) and attachments. Platelets bldOrdered By: Cody Sterling on 12-27-2022 Platelets (Bld) [#/Vol] 235 10*3/uL 150-450 [facility] Serum or plasma calcium ash urement (mass/volume)Ordered By: Dane Sterling on 12-27-2022 Calcium [Mass/Vol] 8.6 mg/dL 8.5-10.1 [facility] Serum or plasma creatinine m easurement (mass/volume)Ordered By: Dane Sterling on 12-27-2022 Creatinine [Mass/Vol] 0.80 mg/dL 0.70-1.30 [facility] Comment on above: The validity of the calculated GFR & GFRAA in patients over 70 years has not been determined. Clinical correlation is essential. Serum or plasma urea nitroge n measurement (mass/volume)Ordered By: Dane Sterling on 12-27-2022 Urea nitrogen [Mass/Vol] 19 mg/dL 7-18 [facility] Thin prep Papanicolaou smear with manual screeningOrdered By: Dane Sterling on 12-27-2022 Thin prep Papanicolaou smear with manual screening 3 5-15 [facility] Absolute lymphocyte countOrd ered By: Davis Armstrong on 10-08-2022 Lymphocytes Auto (Unsp spec) [#/Vol] 0.65 10*3/uL 0.83-4.51 [facility] Basophil percentageOrdered B y: Davis Armstrong on 10-08-2022 Basophil percentage 0 SEEN /hpf 0-5 [facility] Basophils/100 WBC (Bld) 0.8 % 0-[address] [facility] Bilirubin [Mass/Vol] 0.90 mg/dL 0.20-1.00 [facility] Comment on above: For patients on eltr ombopag therapy, use of Dimension [place] TBIL is not recommended. Chloride [Moles/Vol] 109 mmol/L 98-107 [facility] Cholesterol [Mass/Vol] 136 mg/dL <200 [facility] Comment on above: <200 mg/dL Desirable 200-240 mg/dL Borderline >240 mg/dL High Risk Eosinophils/100 WBC (Bld) 1.6 % 0-5 [facility] Glucose [Mass/Vol] 103 mg/dL 74-106 [facility] Comment on above: Fasting Glucose resu lt from 100 to 125 mg/dL suggests IMPAIRED HOMEOSTASIS per A.D.A. criteria. Neutrophils (Bld) [#/Vol] 3.7 10*3/uL 2.0-7.7 [facility] Neutrophils/100 WBC (Bld) 75.3 % 47-70 [facility] Potassium [Moles/Vol] 3.6 mmol/L 3.5-5.1 [facility] Protein [Mass/Vol] 7.2 g/dL 6.4-8.2 [facility] Sodium [Moles/Vol] 138 mmol/L 136-145 [facility] Triglyceride [Mass/Vol] 65 mg/dL <[address] [facility] Comment on above: The drugs N-Acetylcy steine and Metamizole may falsely depress this assay.Serum Triglycerides Reference Interval Normal <150 mg/dL Borderline high 150 - 199 mg/dL High 200 - 499 mg/dL Very High > or = 500 mg/dL WBC (Bld) [#/Vol] 4.9 10*3/uL 4.4-11.0 [facility] Bilirubin Test strip Ql (U)O rdered By: Davis Armstrong on 10-08-2022 Bilirubin Ql (U) Negative Negative [facility] Blood erythrocytes count (nu mber/volume)Ordered By: Davis Armstrong on 10-08-2022 RBC (Bld) [#/Vol] 4.49 10*6/uL 4.6-6.2 [facility] Blood hemoglobin measurement (mass/volume)Ordered By: Davis Armstrong on 10-08-2022 Hemoglobin (Bld) [Mass/Vol] 13.8 g/dL 13.0-16.5 [facility] Blood lymphocytes/100 leukoc ytesOrdered By: Davis Armstrong on 10-08-2022 Lymphocytes/100 WBC (Bld) 13.2 % 19-41 [facility] Blood monocytes/100 leukocyt esOrdered By: Davis Armstrong on 10-08-2022 Monocytes/100 WBC (Bld) 8.9 % 0-[address] [facility] Blood platelet mean volumeOr dered By: Davis Armstrong on 10-08-2022 Platelet mean volume (Bld) [Entitic vol] 10.9 fL 6.2-12.0 [facility] Determination of erythrocyte mean corpuscular volume (MCV)Ordered By: Davis Armstrong on 10-08-2022 MCV (RBC) [Entitic vol] 92.2 fL 80-[address] [facility] Hematocrit Auto (Bld) [Volum e fraction]Ordered By: Davis Armstrong on 10-08-2022 Hematocrit (Bld) [Volume fraction] 41.4 % 40-54 [facility] Iron measurement (mass/mass) Ordered By: Davis Armstrong on 10-08-2022 Iron (Unsp spec) [Mass/Mass] 83 ug/dL 65-175 [facility] Ketones Test strip Ql (U)Ord ered By: Davis Armstrong on 10-08-2022 Ketones Ql (U) Negative Negative [facility] - Chemistry and C hemistry - challengeOrdered By: Davis Armstrong on 10-08-2022 ALP [Catalytic activity/Vol] 89 U/L 45-117 [facility] ALT [Catalytic activity/Vol] 20 U/L 16-61 [facility] CO2 [Moles/Vol] 24.0 mmol/L 21.0-32.0 [facility] Cobalamin (Vitamin B12) [Mass/Vol] 393 pg/mL 211-911 [facility] Globulin (S) [Mass/Vol] 3.4 g/dL 2.2-4.[address] [facility] Urea nitrogen/Creatinine [Mass ratio] 24.4 mg/mg 10-20 [facility] - Hematology and Cell countsOrdered By: Davis Armstrong on 10-08-2022 Erythrocyte distribution width (RBC) [Entitic vol] 42.4 fL 35.1-43.9 [facility] Erythrocyte distribution width (RBC) [Ratio] 12.4 % 11.6-14.6 [facility] Immature granulocytes/100 WBC (Bld) 0.200 % 0.0-0.9 [facility] Comment on above: IG% - Immature Granu locytes (promyelocytes, myelocytes and metamyelocytes) > 1% indicates that a LEFT SHIFT is Present. MCH (RBC) [Entitic mass] 30.7 pg 27.0-32.0 [facility] Nucleated RBC/100 WBC (Bld) [Ratio] 0 % 0-5 [facility] MCHC Auto (RBC) [Mass/Vol]Or dered By: Davis Armstrong on 10-08-2022 MCHC (RBC) [Mass/Vol] 33.3 g/dL 32-36 [facility] Mucus LM Ql (Urine sed)Order ed By: Davis Armstrong on 10-08-2022 Mucus Ql (Urine sed) 0 SEEN /hpf [facility] Nitrite Test strip Ql (U)Ord ered By: Davis Armstrong on 10-08-2022 Nitrite Ql (U) Negative Negative [facility] No Panel InformationOrdered By: Davis Armstrong on 10-08-2022 Estimated GFR (MDRD) Amer 154 mL/min >60 [facility] Comment on above: GFR Calc Estimated GFR (MDRD) Non-Af Amer 127 mL/min >60 [facility] Comment on above: Non- GFR Calc Thyroid Stimulating Hormone (TSH) 2.06 uIU/mL 0.358-3.74 [facility] Total Iron Binding Capacity 349 ug/dL 250-450 [facility] Platelets bldOrdered By: Jarek Armstrong on 10-08-2022 Platelets (Bld) [#/Vol] 213 10*3/uL 150-450 [facility] Protein Test strip Ql (U)Ord ered By: Davis Armstrong on 10-08-2022 Protein Ql (U) Negative Negative [facility] Serum or plasma albumin ash urement (mass/volume)Ordered By: Davis Armstrong on 10-08-2022 Albumin [Mass/Vol] 3.8 g/dL 3.2-5.0 [facility] Serum or plasma albumin/glob ulin mass ratioOrdered By: Davis Armstrong on 10-08-2022 Albumin/Globulin [Mass ratio] 1.1 {ratio} 0.9-2.4 [facility] Serum or plasma calcium ash urement (mass/volume)Ordered By: Davis Armstrong on 10-08-2022 Calcium [Mass/Vol] 8.8 mg/dL 8.5-10.1 [facility] Serum or plasma cholesterol in HDL measurement (mass/volume)Ordered By: Davis Armstrong on 10-08-2022 Cholesterol in HDL [Mass/Vol] 58 mg/dL >40 [facility] Comment on above: The drugs N-Acetylcy steine and Metamizole may falsely depress this assay. Reference Range HDL <40 mg/dL Low HDL Cholesterol HDL >or= 60 mg/dL High HDL Cholesterol Serum or plasma cholesterol in VLDL measurement (mass/volume)Ordered By: Davis Armstrong on 10-08-2022 Cholesterol in VLDL [Mass/Vol] 13 mg/dL 5-40 [facility] Serum or plasma creatinine m easurement (mass/volume)Ordered By: Davis Armstrong on 10-08-2022 Creatinine [Mass/Vol] 0.66 mg/dL 0.70-1.30 [facility] Comment on above: The validity of the calculated GFR & GFRAA in patients over 70 years has not been determined. Clinical correlation is essential. Serum or plasma ferritin elham surement (mass/volume)Ordered By: Davis Armstrong on 10-08-2022 Ferritin [Mass/Vol] 187 ng/mL 26-388 [facility] Serum or plasma folate measu rement (mass/volume)Ordered By: Davis Armstrong on 10-08-2022 Folate [Mass/Vol] 10.00 ng/mL 3.1-55.4 [facility] Serum or plasma low density lipoprotein (LDL) cholesterol measurement (mass/volume)Ordered By: Davis Armstrong on 10-08-2022 Cholesterol in LDL [Mass/Vol] 65 mg/dL 0-130 [facility] Serum or plasma urea nitroge n measurement (mass/volume)Ordered By: Davis Armstrong on 10-08-2022 Urea nitrogen [Mass/Vol] 16 mg/dL 7-18 [facility] Squamous epithelial cells de tection in urine sediment by light microscopyOrdered By: Davis Armstrong on 10-08-2022 Epithelial cells.squamous LM Ql (Urine sed) 0 SEEN /hpf 0-5 [facility] Thin prep Papanicolaou smear with manual screeningOrdered By: Davis Armstrong on 10-08-2022 Thin prep Papanicolaou smear with manual screening 24 U/L 15-37 [facility] Thin prep Papanicolaou smear with manual screening 5 5-15 [facility] Urine blood detectionOrdered By: Davis Armstrong on 10-08-2022 RBC Ql (U) Negative Negative [facility] RBC Ql (U) 0 SEEN /hpf 0-5 [facility] Urine clarityOrdered By: Jarek Armstrong on 10-08-2022 Clarity (U) Clear Clear [facility] Urine color determinationOrd ered By: Davis Armstrong on 10-08-2022 Color (U) Straw Yellow [facility] Urine glucose detectionOrder ed By: Davis Armstrong on 10-08-2022 Glucose Ql (U) Normal mg/dl Normal [facility] Urine leukocyte esterase det ection by dipstickOrdered By: Davis Armstrong on 10-08-2022 Leukocyte esterase Test strip Ql (U) Negative Negative [facility] Urine pHOrdered By: Davis waterman on 10-08-2022 pH (U) 7.0 [pH] 5.0 - 8.0 [facility] Urine sediment bacteria coun t by microscopy (number/high power field)Ordered By: Davis Armstrong on 10-08-2022 Bacteria LM.HPF (Urine sed) [#/Area] 0 /[HPF] None Seen [facility] Urine specific gravity measu rementOrdered By: Davis Armstrong on 10-08-2022 Specific gravity (U) [Rel density] 1.010 1.002-1.030 [facility] Urobilinogen Auto test strip Ql (U)Ordered By: Davis Armstrong on 10-08-2022 Urobilinogen Ql (U) Normal mg/dl Normal [facility] Whole blood hemoglobin A1c/t otal hemoglobin ratio (mass fraction)Ordered By: Davis Armstrong on 10-08-2022 HbA1c (Bld) [Mass fraction] 6.1 % 3.8-5.6 [facility] Comment on above: Normal < 5.7 % Predi abetic 5.7 - 6.4 % Diabetic >or= 6.5 % Please note range changes. Basophil percentageOrdered B y: Dr. Mayes on 03-28-2022 Chloride [Moles/Vol] 107 mmol/L 98-107 [facility] Glucose [Mass/Vol] 92 mg/dL 74-106 [facility] Potassium [Moles/Vol] 3.7 mmol/L 3.5-5.1 [facility] Sodium [Moles/Vol] 140 mmol/L 136-145 [facility] WBC (Bld) [#/Vol] 5.3 10*3/uL 4.4-11.0 [facility] Blood erythrocytes count (nu mber/volume)Ordered By: Dr. Mayes on 03-28-2022 RBC (Bld) [#/Vol] 4.32 10*6/uL 4.6-6.2 [facility] Blood hemoglobin measurement (mass/volume)Ordered By: Dr. Mayes on 03-28-2022 Hemoglobin (Bld) [Mass/Vol] 13.2 g/dL 13.0-16.5 [facility] Blood platelet mean volumeOr dered By: Dr. Mayes on 03-28-2022 Platelet mean volume (Bld) [Entitic vol] 10.8 fL 6.2-12.0 [facility] Determination of erythrocyte mean corpuscular volume (MCV)Ordered By: Dr. Mayes on 03-28-2022 MCV (RBC) [Entitic vol] 92.4 fL 80-[address] [facility] Hematocrit Auto (Bld) [Volum e fraction]Ordered By: Dr. Mayes on 03-28-2022 Hematocrit (Bld) [Volume fraction] 39.9 % 40-54 [facility] - Chemistry and C hemistry - challengeOrdered By: Dr. Mayes on 03-28-2022 CO2 [Moles/Vol] 26.0 mmol/L 21.0-32.0 [facility] Urea nitrogen/Creatinine [Mass ratio] 25.2 mg/mg 10-20 [facility] - Hematology and Cell countsOrdered By: Dr. Mayes on 03-28-2022 Erythrocyte distribution width (RBC) [Entitic vol] 43.5 fL 35.1-43.9 [facility] Erythrocyte distribution width (RBC) [Ratio] 13.0 % 11.6-14.6 [facility] MCH (RBC) [Entitic mass] 30.6 pg 27.0-32.0 [facility] MCHC Auto (RBC) [Mass/Vol]Or dered By: Dr. Mayes on 03-28-2022 MCHC (RBC) [Mass/Vol] 33.1 g/dL 32-36 [facility] No Panel InformationOrdered By: Dr. Mayes on 03-28-2022 Estimated GFR (MDRD) Amer 140 mL/min >60 [facility] Comment on above: GFR Calc Estimated GFR (MDRD) Non-Af Amer 116 mL/min >60 [facility] Comment on above: Non- GFR Calc Platelets bldOrdered By: Dr. Mayes on 03-28-2022 Platelets (Bld) [#/Vol] 233 10*3/uL 150-450 [facility] Serum or plasma calcium ash urement (mass/volume)Ordered By: Dr. Mayes on 03-28-2022 Calcium [Mass/Vol] 8.8 mg/dL 8.5-10.1 [facility] Serum or plasma creatinine m easurement (mass/volume)Ordered By: Dr. Mayes on 03-28-2022 Creatinine [Mass/Vol] 0.71 mg/dL 0.70-1.30 [facility] Comment on above: The validity of the calculated GFR & GFRAA in patients over 70 years has not been determined. Clinical correlation is essential. Serum or plasma urea nitroge n measurement (mass/volume)Ordered By: Dr. Mayes on 03-28-2022 Urea nitrogen [Mass/Vol] 18 mg/dL 7-18 [facility] Thin prep Papanicolaou smear with manual screeningOrdered By: Dr. Mayes on 03-28-2022 Thin prep Papanicolaou smear with manual screening 7 5-15 [facility] Absolute lymphocyte countOrd ered By: Dr. Hatch on 01-16-2022 Lymphocytes Auto (Unsp spec) [#/Vol] 0.63 10*3/uL 0.83-4.51 [facility] Basophil percentageOrdered B y: Dr. Hatch on 01-16-2022 Basophil percentage 10-25 SEEN /hpf 0-5 [facility] Basophils/100 WBC (Bld) 0.6 % 0-[address] [facility] Chloride [Moles/Vol] 106 mmol/L 98-107 [facility] Eosinophils/100 WBC (Bld) 0.6 % 0-5 [facility] Glucose [Mass/Vol] 153 mg/dL 74-106 [facility] Comment on above: Fasting Glucose resu lt greater than or equal to 126 mg/dL suggests DIABETES MELLITUS per A.D.A. criteria. Neutrophils (Bld) [#/Vol] 6.6 10*3/uL 2.0-7.7 [facility] Neutrophils/100 WBC (Bld) 83.2 % 47-70 [facility] Potassium [Moles/Vol] 3.3 mmol/L 3.5-5.1 [facility] Sodium [Moles/Vol] 137 mmol/L 136-145 [facility] WBC (Bld) [#/Vol] 7.9 10*3/uL 4.4-11.0 [facility] Bilirubin Test strip Ql (U)O rdered By: Dr. Hatch on 01-16-2022 Bilirubin Ql (U) Negative Negative [facility] Blood erythrocytes count (nu mber/volume)Ordered By: Dr. Hatch on 01-16-2022 RBC (Bld) [#/Vol] 4.32 10*6/uL 4.6-6.2 [facility] Blood hemoglobin measurement (mass/volume)Ordered By: Dr. Hatch on 01-16-2022 Hemoglobin (Bld) [Mass/Vol] 13.4 g/dL 13.0-16.5 [facility] Blood lymphocytes/100 leukoc ytesOrdered By: Dr. Hatch on 01-16-2022 Lymphocytes/100 WBC (Bld) 8.0 % 19-41 [facility] Blood monocytes/100 leukocyt esOrdered By: Dr. Hatch on 01-16-2022 Monocytes/100 WBC (Bld) 7.2 % 0-[address] [facility] Blood platelet mean volumeOr dered By: Dr. Hatch on 01-16-2022 Platelet mean volume (Bld) [Entitic vol] 10.3 fL 6.2-12.0 [facility] Determination of erythrocyte mean corpuscular volume (MCV)Ordered By: Dr. Hatch on 01-16-2022 MCV (RBC) [Entitic vol] 91.4 fL 80-[address] [facility] Glucose Glucometer (BldC) [M ass/Vol]Ordered By: Dr. Mayes on 01-16-2022 Glucose [Mass/Vol] 111 mg/dL 74-106 [facility] Comment on above: MANAGEMENT OF PATIEN T CARE PER NURSING PROTOCOL Hematocrit Auto (Bld) [Volum e fraction]Ordered By: Dr. Hatch on 01-16-2022 Hematocrit (Bld) [Volume fraction] 39.5 % 40-54 [facility] Ketones Test strip Ql (U)Ord ered By: Dr. Hatch on 01-16-2022 Ketones Ql (U) Negative Negative [facility] - Chemistry and C hemistry - challengeOrdered By: Dr. Hatch on 01-16-2022 CO2 [Moles/Vol] 25.0 mmol/L 21.0-32.0 [facility] Urea nitrogen/Creatinine [Mass ratio] 23.4 mg/mg 10-20 [facility] - Hematology and Cell countsOrdered By: Dr. Hatch on 01-16-2022 Erythrocyte distribution width (RBC) [Entitic vol] 42.2 fL 35.1-43.9 [facility] Erythrocyte distribution width (RBC) [Ratio] 12.7 % 11.6-14.6 [facility] Immature granulocytes/100 WBC (Bld) 0.400 % 0.0-0.9 [facility] Comment on above: IG% - Immature Granu locytes (promyelocytes, myelocytes and metamyelocytes) > 1% indicates that a LEFT SHIFT is Present. MCH (RBC) [Entitic mass] 31.0 pg 27.0-32.0 [facility] Nucleated RBC/100 WBC (Bld) [Ratio] 0 % 0-5 [facility] MCHC Auto (RBC) [Mass/Vol]Or dered By: Dr. Hatch on 01-16-2022 MCHC (RBC) [Mass/Vol] 33.9 g/dL 32-36 [facility] Mucus LM Ql (Urine sed)Order ed By: Dr. Hatch on 01-16-2022 Mucus Ql (Urine sed) 0 SEEN /hpf [facility] Nitrite Test strip Ql (U)Ord ered By: Dr. Hatch on 01-16-2022 Nitrite Ql (U) Negative Negative [facility] No Panel InformationOrdered By: Dr. Hatch on 01-16-2022 Estimated Creatinine Clearance Calc 70.38 ml/min [facility] Estimated GFR (MDRD) Amer 107 mL/min >60 [facility] Comment on above: GFR Calc Estimated GFR (MDRD) Non-Af Amer 89 mL/min >60 [facility] Comment on above: Non- GFR Calc Platelets bldOrdered By: Dr. Hatch on 01-16-2022 Platelets (Bld) [#/Vol] 236 10*3/uL 150-450 [facility] Protein Test strip Ql (U)Ord ered By: Dr. Hatch on 01-16-2022 Protein Ql (U) 500 mg/dl Negative [facility] Serum or plasma calcium ash urement (mass/volume)Ordered By: Dr. Hatch on 01-16-2022 Calcium [Mass/Vol] 8.5 mg/dL 8.5-10.1 [facility] Serum or plasma creatinine m easurement (mass/volume)Ordered By: Dr. Hatch on 01-16-2022 Creatinine [Mass/Vol] 0.90 mg/dL 0.70-1.30 [facility] Comment on above: The validity of the calculated GFR & GFRAA in patients over 70 years has not been determined. Clinical correlation is essential. Serum or plasma urea nitroge n measurement (mass/volume)Ordered By: Dr. Hatch on 01-16-2022 Urea nitrogen [Mass/Vol] 21 mg/dL 7-18 [facility] Squamous epithelial cells de tection in urine sediment by light microscopyOrdered By: Dr. Hatch on 01-16-2022 Epithelial cells.squamous LM Ql (Urine sed) 0 SEEN /hpf 0-5 [facility] Thin prep Papanicolaou smear with manual screeningOrdered By: Dr. Hatch on 01-16-2022 Thin prep Papanicolaou smear with manual screening 6 5-15 [facility] Urine blood detectionOrdered By: Dr. Hatch on 01-16-2022 RBC Ql (U) 250 /ul Negative [facility] RBC Ql (U) > 100 SEEN /hpf 0-5 [facility] Urine clarityOrdered By: Dr. Hatch on 01-16-2022 Clarity (U) Turbid Clear [facility] Urine color determinationOrd ered By: Dr. Hatch on 01-16-2022 Color (U) Red Yellow [facility] Urine glucose detectionOrder ed By: Dr. Hatch on 01-16-2022 Glucose Ql (U) 50 mg/dl Normal [facility] Urine leukocyte esterase det ection by dipstickOrdered By: Dr. Hatch on 01-16-2022 Leukocyte esterase Test strip Ql (U) 25 /ul Negative [facility] Urine pHOrdered By: Dr. Lawson wu on 01-16-2022 pH (U) 7.0 [pH] 5.0 - 8.0 [facility] Urine sediment bacteria coun t by microscopy (number/high power field)Ordered By: Dr. Hatch on 01-16-2022 Bacteria LM.HPF (Urine sed) [#/Area] 0 /[HPF] None Seen [facility] Urine specific gravity measu rementOrdered By: Dr. Hatch on 01-16-2022 Specific gravity (U) [Rel density] 1.010 1.002-1.030 [facility] Urobilinogen Auto test strip Ql (U)Ordered By: Dr. Hatch on 01-16-2022 Urobilinogen Ql (U) Normal mg/dl Normal [facility] Glucose Glucometer (BldC) [M ass/Vol]Ordered By: Dr. Mayes on 12-19-2021 Glucose [Mass/Vol] 99 mg/dL 74-106 [facility] Comment on above: MANAGEMENT OF PATIEN T CARE PER NURSING PROTOCOL Absolute lymphocyte countOrd ered By: Dr. Armstrong on 12-18-2021 Lymphocytes Auto (Unsp spec) [#/Vol] 0.70 10*3/uL 0.83-4.51 [facility] Basophil percentageOrdered B y: Dr. Armstrong on 12-18-2021 Basophils/100 WBC (Bld) 0.6 % 0-[address] [facility] Bilirubin [Mass/Vol] 1.00 mg/dL 0.20-1.00 [facility] Comment on above: For patients on eltr ombopag therapy, use of Dimension [place] TBIL is not recommended. Chloride [Moles/Vol] 107 mmol/L 98-107 [facility] Cholesterol [Mass/Vol] 120 mg/dL <200 [facility] Comment on above: <200 mg/dL Desirable 200-240 mg/dL Borderline >240 mg/dL High Risk Eosinophils/100 WBC (Bld) 0.7 % 0-5 [facility] Glucose [Mass/Vol] 95 mg/dL 74-106 [facility] Neutrophils (Bld) [#/Vol] 9.0 10*3/uL 2.0-7.7 [facility] Neutrophils/100 WBC (Bld) 84.2 % 47-70 [facility] Potassium [Moles/Vol] 3.7 mmol/L 3.5-5.1 [facility] Protein [Mass/Vol] 7.0 g/dL 6.4-8.2 [facility] Sodium [Moles/Vol] 139 mmol/L 136-145 [facility] Triglyceride [Mass/Vol] 53 mg/dL <[address] [facility] Comment on above: The drugs N-Acetylcy steine and Metamizole may falsely depress this assay.Serum Triglycerides Reference Interval Normal <150 mg/dL Borderline high 150 - 199 mg/dL High 200 - 499 mg/dL Very High > or = 500 mg/dL WBC (Bld) [#/Vol] 10.7 10*3/uL 4.4-11.0 [facility] Blood erythrocytes count (nu mber/volume)Ordered By: Dr. Armstrong on 12-18-2021 RBC (Bld) [#/Vol] 4.39 10*6/uL 4.6-6.2 [facility] Blood hemoglobin measurement (mass/volume)Ordered By: Dr. Armstrong on 12-18-2021 Hemoglobin (Bld) [Mass/Vol] 13.6 g/dL 13.0-16.5 [facility] Blood lymphocytes/100 leukoc ytesOrdered By: Dr. Armstrong on 12-18-2021 Lymphocytes/100 WBC (Bld) 6.6 % 19-41 [facility] Blood monocytes/100 leukocyt esOrdered By: Dr. Armstrong on 12-18-2021 Monocytes/100 WBC (Bld) 7.4 % 0-[address] [facility] Blood platelet mean volumeOr dered By: Dr. Armstrong on 12-18-2021 Platelet mean volume (Bld) [Entitic vol] 11.0 fL 6.2-12.0 [facility] Determination of erythrocyte mean corpuscular volume (MCV)Ordered By: Dr. Armstrong on 12-18-2021 MCV (RBC) [Entitic vol] 92.7 fL 80-[address] [facility] Hematocrit Auto (Bld) [Volum e fraction]Ordered By: Dr. Armstrong on 12-18-2021 Hematocrit (Bld) [Volume fraction] 40.7 % 40-54 [facility] Iron measurement (mass/mass) Ordered By: Dr. Armstrong on 12-18-2021 Iron (Unsp spec) [Mass/Mass] 32 ug/dL 65-175 [facility] - Chemistry and C hemistry - challengeOrdered By: Dr. Armstrong on 12-18-2021 ALP [Catalytic activity/Vol] 79 U/L 45-117 [facility] ALT [Catalytic activity/Vol] 22 U/L 16-61 [facility] CO2 [Moles/Vol] 26.0 mmol/L 21.0-32.0 [facility] Cobalamin (Vitamin B12) [Mass/Vol] 534 pg/mL 211-911 [facility] Globulin (S) [Mass/Vol] 3.5 g/dL 2.2-4.[address] [facility] Transferrin [Mass/Vol] 211 mg/dL 177-329 [facility] Comment on above: Performed at: [address] [id number] Director: Scooby Downs PhD, Phone: [phone] Urea nitrogen/Creatinine [Mass ratio] 23.4 mg/mg 10-20 [facility] - Hematology and Cell countsOrdered By: Dr. Armstrong on 12-18-2021 Erythrocyte distribution width (RBC) [Entitic vol] 43.7 fL 35.1-43.9 [facility] Erythrocyte distribution width (RBC) [Ratio] 12.6 % 11.6-14.6 [facility] Immature granulocytes/100 WBC (Bld) 0.500 % 0.0-0.9 [facility] Comment on above: IG% - Immature Granu locytes (promyelocytes, myelocytes and metamyelocytes) > 1% indicates that a LEFT SHIFT is Present. MCH (RBC) [Entitic mass] 31.0 pg 27.0-32.0 [facility] Nucleated RBC/100 WBC (Bld) [Ratio] 0 % 0-5 [facility] MCHC Auto (RBC) [Mass/Vol]Or dered By: Dr. Armstrong on 12-18-2021 MCHC (RBC) [Mass/Vol] 33.4 g/dL 32-36 [facility] No Panel InformationOrdered By: Dr. Armstrong on 12-18-2021 Estimated GFR (MDRD) Amer 137 mL/min >60 [facility] Comment on above: GFR Calc Estimated GFR (MDRD) Non-Af Amer 114 mL/min >60 [facility] Comment on above: Non- GFR Calc Prostate Specific Antigen Screen 0.82 ng/mL 0.00-4.00 [facility] Comment on above: This test was perfor med using the TPSA assay method [facility] the[facility]. Values obtained with differentassay methods cannot be used interchangably.When changing PSA assays in the course of monitoring apatient, additional sequential testing should be carriedout to confirm baseline values. Total Iron Binding Capacity 269 ug/dL 250-450 [facility] Platelets bldOrdered By: Dr. Armstrong on 12-18-2021 Platelets (Bld) [#/Vol] 262 10*3/uL 150-450 [facility] Serum or plasma albumin ash urement (mass/volume)Ordered By: Dr. Armstrong on 12-18-2021 Albumin [Mass/Vol] 3.5 g/dL 3.2-5.0 [facility] Serum or plasma albumin/glob ulin mass ratioOrdered By: Dr. Armstrong on 12-18-2021 Albumin/Globulin [Mass ratio] 1.0 {ratio} 0.9-2.4 [facility] Serum or plasma calcium ash urement (mass/volume)Ordered By: Dr. Armstrong on 12-18-2021 Calcium [Mass/Vol] 9.0 mg/dL 8.5-10.1 [facility] Serum or plasma cholesterol in HDL measurement (mass/volume)Ordered By: Dr. Armstrong on 12-18-2021 Cholesterol in HDL [Mass/Vol] 61 mg/dL >40 [facility] Comment on above: The drugs N-Acetylcy steine and Metamizole may falsely depress this assay. Reference Range HDL <40 mg/dL Low HDL Cholesterol HDL >or= 60 mg/dL High HDL Cholesterol Serum or plasma cholesterol in VLDL measurement (mass/volume)Ordered By: Dr. Armstrong on 12-18-2021 Cholesterol in VLDL [Mass/Vol] 11 mg/dL 5-40 [facility] Serum or plasma creatinine m easurement (mass/volume)Ordered By: Dr. Armstrong on 12-18-2021 Creatinine [Mass/Vol] 0.72 mg/dL 0.70-1.30 [facility] Comment on above: The validity of the calculated GFR & GFRAA in patients over 70 years has not been determined. Clinical correlation is essential. Serum or plasma ferritin elham surement (mass/volume)Ordered By: Dr. Armstrong on 12-18-2021 Ferritin [Mass/Vol] 339 ng/mL 26-388 [facility] Serum or plasma low density lipoprotein (LDL) cholesterol measurement (mass/volume)Ordered By: Dr. Armstrong on 12-18-2021 Cholesterol in LDL [Mass/Vol] 48 mg/dL 0-130 [facility] Serum or plasma urea nitroge n measurement (mass/volume)Ordered By: Dr. Armstrong on 12-18-2021 Urea nitrogen [Mass/Vol] 17 mg/dL 7-18 [facility] Thin prep Papanicolaou smear with manual screeningOrdered By: Dr. Armstrong on 12-18-2021 Thin prep Papanicolaou smear with manual screening 20 U/L 15-37 [facility] Thin prep Papanicolaou smear with manual screening 6 5-15 [facility] Whole blood hemoglobin A1c/t otal hemoglobin ratio (mass fraction)Ordered By: Dr. Armstrong on 12-18-2021 HbA1c (Bld) [Mass fraction] 6.1 % 3.8-5.6 [facility] Comment on above: Normal < 5.7 % Predi abetic 5.7 - 6.4 % Diabetic >or= 6.5 % Please note range changes. Absolute lymphocyte counton 12-02-2021 Lymphocytes Auto (Unsp spec) [#/Vol] 0.63 10*3/uL 0.83-4.51 [facility] Work Phone: Basophil percentageon 2021 Basophil percentage 0-5 SEEN /hpf 0-5 [facility] Work Phone: Basophils/100 WBC (Bld) 0.6 % 0-[address] [facility] Work Phone: Bilirubin [Mass/Vol] 1.00 mg/dL 0.20-1.00 [facility] Work Phone: Comment on above: For patients on eltr ombopag therapy, use of Dimension [place] TBIL is not recommended. Chloride [Moles/Vol] 109 mmol/L 98-107 [facility] Work Phone: Eosinophils/100 WBC (Bld) 0.4 % 0-5 [facility] Work Phone: Glucose [Mass/Vol] 111 mg/dL 74-106 [facility] Work Phone: Comment on above: Fasting Glucose resu lt from 100 to 125 mg/dL suggests IMPAIRED HOMEOSTASIS per A.D.A. criteria. Neutrophils (Bld) [#/Vol] 9.1 10*3/uL 2.0-7.7 [facility] Work Phone: Neutrophils/100 WBC (Bld) 83.8 % 47-70 [facility] Work Phone: Potassium [Moles/Vol] 3.7 mmol/L 3.5-5.1 [facility] Work Phone: Protein [Mass/Vol] 7.2 g/dL 6.4-8.2 [place] [facility] Work Phone: Sodium [Moles/Vol] 144 mmol/L 136-145 [place] [facility] Work Phone: WBC (Bld) [#/Vol] 10.9 10*3/uL 4.4-11.0 [facility] Work Phone: Bilirubin Test strip Ql (U)o n 12-02-2021 Bilirubin Ql (U) Negative Negative [facility] Work Phone: Blood erythrocytes count (nu mber/volume)on 12-02-2021 RBC (Bld) [#/Vol] 4.65 10*6/uL 4.6-6.2 [facility] Work Phone: Blood hemoglobin measurement (mass/volume)on 12-02-2021 Hemoglobin (Bld) [Mass/Vol] 14.4 g/dL 13.0-16.5 [facility] Work Phone: Blood lymphocytes/100 leukoc yteson 12-02-2021 Lymphocytes/100 WBC (Bld) 5.8 % 19-41 [facility] Work Phone: Blood monocytes/100 leukocyt eson 12-02-2021 Monocytes/100 WBC (Bld) 9.1 % 0-[address] [facility] Work Phone: Blood platelet mean volumeon 12-02-2021 Platelet mean volume (Bld) [Entitic vol] 10.4 fL 6.2-12.0 [facility] Work Phone: Determination of erythrocyte mean corpuscular volume (MCV)on 12-02-2021 MCV (RBC) [Entitic vol] 94.2 fL 80-[address] [facility] Work Phone: Hematocrit Auto (Bld) [Volum e fraction]on 12-02-2021 Hematocrit (Bld) [Volume fraction] 43.8 % 40-54 [facility] Work Phone: [phone] Ketones Test strip Ql (U)on 12-02-2021 Ketones Ql (U) Negative Negative [facility] Work Phone: [phone] Laboratory - Chemistry and C hemistry - challengeon 12-02-2021 ALP [Catalytic activity/Vol] 71 U/L 45-117 [facility] Work Phone: [phone] ALT [Catalytic activity/Vol] 21 U/L 16-61 [facility] Work Phone: [phone] CO2 [Moles/Vol] 27.0 mmol/L 21.0-32.0 [facility] Work Phone: [phone] Globulin (S) [Mass/Vol] 3.4 g/dL 2.2-4.[address] [facility] Work Phone: [phone] Lipase [Catalytic activity/Vol] 112 U/L 73-393 [facility] Work Phone: [phone] Urea nitrogen/Creatinine [Mass ratio] 22.2 mg/mg 10-20 [facility] Work Phone: [phone] Laboratory - Hematology and Cell countson 12-02-2021 Erythrocyte distribution width (RBC) [Entitic vol] 44.7 fL 35.1-43.9 [facility] Work Phone: [phone] Erythrocyte distribution width (RBC) [Ratio] 13.1 % 11.6-14.6 [facility] Work Phone: [phone] Immature granulocytes/100 WBC (Bld) 0.300 % 0.0-0.9 [facility] Work Phone: [phone] Comment on above: IG% - Immature Granu locytes (promyelocytes, myelocytes and metamyelocytes) > 1% indicates that a LEFT SHIFT is Present. MCH (RBC) [Entitic mass] 31.0 pg 27.0-32.0 [facility] Work Phone: [phone] Nucleated RBC/100 WBC (Bld) [Ratio] 0 % 0-5 [facility] Work Phone: [phone] MCHC Auto (RBC) [Mass/Vol]on 12-02-2021 MCHC (RBC) [Mass/Vol] 32.9 g/dL 32-36 [facility] Work Phone: [phone] Mucus LM Ql (Urine sed)on Mucus Ql (Urine sed) 0 SEEN /hpf [facility] Work Phone: Nitrite Test strip Ql (U)on 12-02-2021 Nitrite Ql (U) Negative Negative [facility] Work Phone: [phone] No Panel Informationon 12-02 Estimated Creatinine Clearance Calc 51.00 ml/min [facility] Work Phone: [phone] Estimated GFR (MDRD) Amer 73 mL/min >60 [facility] Work Phone: [phone] Comment on above: GFR Calc Estimated GFR (MDRD) Non-Af Amer 60 mL/min >60 [facility] Work Phone: Comment on above: Non- GFR Calc Platelets bldon 12-02-2021 Platelets (Bld) [#/Vol] 216 10*3/uL 150-450 [facility] Work Phone: [phone] Protein Test strip Ql (U)on 12-02-2021 Protein Ql (U) 15 mg/dl Negative [facility] Work Phone: [phone] Serum or plasma albumin ash urement (mass/volume)on 12-02-2021 Albumin [Mass/Vol] 3.8 g/dL 3.2-5.0 [facility] Work Phone: [phone] Serum or plasma albumin/glob ulin mass ratioon 12-02-2021 Albumin/Globulin [Mass ratio] 1.1 {ratio} 0.9-2.4 [facility] Work Phone: [phone] Serum or plasma calcium ash urement (mass/volume)on 12-02-2021 Calcium [Mass/Vol] 9.2 mg/dL 8.5-10.1 [facility] Work Phone: [phone] Serum or plasma creatinine m easurement (mass/volume)on 12-02-2021 Creatinine [Mass/Vol] 1.26 mg/dL 0.70-1.30 [facility] Work Phone: Comment on above: The validity of the calculated GFR & GFRAA in patients over 70 years has not been determined. Clinical correlation is essential. Serum or plasma urea nitroge n measurement (mass/volume)on 12-02-2021 Urea nitrogen [Mass/Vol] 28 mg/dL -18 [facility] Work Phone: [phone] Squamous epithelial cells de tection in urine sediment by light microscopyon 12-02-2021 Epithelial cells.squamous LM Ql (Urine sed) 0 SEEN /hpf 0-5 [facility] Work Phone: Thin prep Papanicolaou smear with manual screeningon 12-02-2021 Thin prep Papanicolaou smear with manual screening 25 U/L 15-37 [facility] Work Phone: Thin prep Papanicolaou smear with manual screening 8 5-15 [facility] Work Phone: Urine blood detectionon 11-15 RBC Ql (U) 150 /ul Negative [facility] Work Phone: [phone] RBC Ql (U) 5-10 SEEN /hpf 0-5 [facility] Work Phone: [phone] Urine clarityon 12-02-2021 Clarity (U) Clear Clear [facility] Work Phone: Urine color determinationon 12-02-2021 Color (U) Yellow Yellow [facility] Work Phone: Urine glucose detectionon Glucose Ql (U) Normal mg/dl Normal [facility] Work Phone: [phone] Urine leukocyte esterase det ection by dipstickon 12-02-2021 Leukocyte esterase Test strip Ql (U) Negative Negative [facility] Work Phone: [phone] Urine pHon 12-02-2021 pH (U) 6.0 [pH] 5.0 - 8.0 [facility] Work Phone: [phone] Urine sediment bacteria coun t by microscopy (number/high power field)on 12-02-2021 Bacteria LM.HPF (Urine sed) [#/Area] RARE /hpf None Seen [facility] Work Phone: Urine specific gravity measu rementon 12-02-2021 Specific gravity (U) [Rel density] 1.015 1.002-1.030 [facility] Work Phone: Urobilinogen Auto test strip Ql (U)on 12-02-2021 Urobilinogen Ql (U) Normal mg/dl Normal [facility] Work Phone: Absolute lymphocyte counton 10-02-2021 Lymphocytes Auto (Unsp spec) [#/Vol] 0.89 10*3/uL 0.83-4.51 [facility] Work Phone: Basophil percentageon 2021 Basophils/100 WBC (Bld) 1.2 % 0-[address] [facility] Work Phone: Bilirubin [Mass/Vol] 0.80 mg/dL 0.20-1.00 [facility] Work Phone: Comment on above: For patients on eltr ombopag therapy, use of Dimension [place] TBIL is not recommended. Chloride [Moles/Vol] 107 mmol/L 98-107 [facility] Work Phone: Cholesterol [Mass/Vol] 132 mg/dL <200 [facility] Work Phone: Comment on above: <200 mg/dL Desirable 200-240 mg/dL Borderline >240 mg/dL High Risk Eosinophils/100 WBC (Bld) 2.7 % 0-5 [facility] Work Phone: Glucose [Mass/Vol] 95 mg/dL 74-106 [facility] Work Phone: Neutrophils (Bld) [#/Vol] 3.3 10*3/uL 2.0-7.7 [facility] Work Phone: Neutrophils/100 WBC (Bld) 68.0 % 47-70 [facility] Work Phone: Potassium [Moles/Vol] 3.7 mmol/L 3.5-5.1 [facility] Work Phone: [phone] Protein [Mass/Vol] 6.6 g/dL 6.4-8.2 [facility] Work Phone: [phone] Sodium [Moles/Vol] 140 mmol/L 136-145 [facility] Work Phone: [phone] Triglyceride [Mass/Vol] 54 mg/dL <[address] [facility] Work Phone: [phone] Comment on above: The drugs N-Acetylcy steine and Metamizole may falsely depress this assay.Serum Triglycerides Reference Interval Normal <150 mg/dL Borderline high 150 - 199 mg/dL High 200 - 499 mg/dL Very High > or = 500 mg/dL WBC (Bld) [#/Vol] 4.8 10*3/uL 4.4-11.0 [facility] Work Phone: Blood erythrocytes count (nu mber/volume)on 10-02-2021 RBC (Bld) [#/Vol] 4.07 10*6/uL 4.6-6.2 [facility] Work Phone: [phone] Blood hemoglobin measurement (mass/volume)on 10-02-2021 Hemoglobin (Bld) [Mass/Vol] 12.9 g/dL 13.0-16.5 [facility] Work Phone: Blood lymphocytes/100 leukoc yteson 10-02-2021 Lymphocytes/100 WBC (Bld) 18.5 % 19-41 [facility] Work Phone: [phone] Blood monocytes/100 leukocyt eson 10-02-2021 Monocytes/100 WBC (Bld) 9.4 % 0-[address] [facility] Work Phone: Blood platelet mean volumeon 10-02-2021 Platelet mean volume (Bld) [Entitic vol] 10.8 fL 6.2-12.0 [facility] Work Phone: [phone] Determination of erythrocyte mean corpuscular volume (MCV)on 10-02-2021 MCV (RBC) [Entitic vol] 95.3 fL 80-[address] [facility] Work Phone: [phone] Hematocrit Auto (Bld) [Volum e fraction]on 10-02-2021 Hematocrit (Bld) [Volume fraction] 38.8 % 40-54 [facility] Work Phone: [phone] Iron measurement (mass/mass) on 10-02-2021 Iron (Unsp spec) [Mass/Mass] 104 ug/dL 65-175 [facility] Work Phone: [phone] Laboratory - Chemistry and C hemistry - challengeon 10-02-2021 Cobalamin (Vitamin B12) [Mass/Vol] 449 pg/mL 211-911 [facility] Work Phone: ALP [Catalytic activity/Vol] 68 U/L 45-117 [facility] Work Phone: [phone] ALT [Catalytic activity/Vol] 21 U/L 16-61 [facility] Work Phone: [phone] CO2 [Moles/Vol] 27.0 mmol/L 21.0-32.0 [facility] Work Phone: [phone] Globulin (S) [Mass/Vol] 3.1 g/dL 2.2-4.[address] [facility] Work Phone: [phone] Transferrin [Mass/Vol] 229 mg/dL 177-329 [facility] Work Phone: [phone] Comment on above: Performed at: [address] [id number] Director: Scooby Downs PhD, Phone: [phone] Urea nitrogen/Creatinine [Mass ratio] 31.4 mg/mg 10-20 [facility] Work Phone: [phone] Laboratory - Hematology and Cell countson 10-02-2021 Erythrocyte distribution width (RBC) [Entitic vol] 43.9 fL 35.1-43.9 [facility] Work Phone: [phone] Erythrocyte distribution width (RBC) [Ratio] 12.5 % 11.6-14.6 [facility] Work Phone: [phone] Immature granulocytes/100 WBC (Bld) 0.200 % 0.0-0.9 [facility] Work Phone: Comment on above: IG% - Immature Granu locytes (promyelocytes, myelocytes and metamyelocytes) > 1% indicates that a LEFT SHIFT is Present. MCH (RBC) [Entitic mass] 31.7 pg 27.0-32.0 [facility] Work Phone: Nucleated RBC/100 WBC (Bld) [Ratio] 0 % 0-5 [facility] Work Phone: [phone] MCHC Auto (RBC) [Mass/Vol]on 10-02-2021 MCHC (RBC) [Mass/Vol] 33.2 g/dL 32-36 [facility] Work Phone: No Panel Informationon 10-02 Estimated GFR (MDRD) Amer 143 mL/min >60 [facility] Work Phone: Comment on above: GFR Calc Estimated GFR (MDRD) Non-Af Amer 118 mL/min >60 [facility] Work Phone: Comment on above: Non- GFR Calc Total Iron Binding Capacity 285 ug/dL 250-450 [facility] Work Phone: Platelets bldon 10-02-2021 Platelets (Bld) [#/Vol] 231 10*3/uL 150-450 [facility] Work Phone: [phone] Serum or plasma albumin ash urement (mass/volume)on 10-02-2021 Albumin [Mass/Vol] 3.5 g/dL 3.2-5.0 [facility] Work Phone: Serum or plasma albumin/glob ulin mass ratioon 10-02-2021 Albumin/Globulin [Mass ratio] 1.1 {ratio} 0.9-2.4 [facility] Work Phone: [phone] Serum or plasma calcium ash urement (mass/volume)on 10-02-2021 Calcium [Mass/Vol] 8.7 mg/dL 8.5-10.1 [facility] Work Phone: [phone] Serum or plasma cholesterol in HDL measurement (mass/volume)on 10-02-2021 Cholesterol in HDL [Mass/Vol] 57 mg/dL >40 [facility] Work Phone: Comment on above: The drugs N-Acetylcy steine and Metamizole may falsely depress this assay. Reference Range HDL <40 mg/dL Low HDL Cholesterol HDL >or= 60 mg/dL High HDL Cholesterol Serum or plasma cholesterol in VLDL measurement (mass/volume)on 10-02-2021 Cholesterol in VLDL [Mass/Vol] 11 mg/dL 5-40 [facility] Work Phone: [phone] Serum or plasma creatinine m easurement (mass/volume)on 10-02-2021 Creatinine [Mass/Vol] 0.70 mg/dL 0.70-1.30 [facility] Work Phone: Comment on above: The validity of the calculated GFR & GFRAA in patients over 70 years has not been determined. Clinical correlation is essential. Serum or plasma ferritin elham surement (mass/volume)on 10-02-2021 Ferritin [Mass/Vol] 290 ng/mL 26-388 [facility] Work Phone: Serum or plasma iron saturat ion measurement (mass fraction)on 10-02-2021 Iron saturation [Mass fraction] 36.5 % 15.0-55.0 [facility] Work Phone: [phone] Serum or plasma low density lipoprotein (LDL) cholesterol measurement (mass/volume)on 10-02-2021 Cholesterol in LDL [Mass/Vol] 64 mg/dL 0-130 [facility] Work Phone: [phone] Serum or plasma urea nitroge n measurement (mass/volume)on 10-02-2021 Urea nitrogen [Mass/Vol] 22 mg/dL 7-18 [facility] Work Phone: [phone] Thin prep Papanicolaou smear with manual screeningon 10-02-2021 Thin prep Papanicolaou smear with manual screening 29 U/L 15-37 [facility] Work Phone: [phone] Thin prep Papanicolaou smear with manual screening 6 5-15 [facility] Work Phone: Whole blood hemoglobin A1c/t otal hemoglobin ratio (mass fraction)on 10-02-2021 HbA1c (Bld) [Mass fraction] 6.0 % 3.8-5.6 [facility] Work Phone: Comment on above: Normal < 5.7 % Predi abetic 5.7 - 6.4 % Diabetic >or= 6.5 % Please note range changes. Vital Signs Date Time Vital Sign Value Performing Clinician Faci lity 07-23-2024 11:37-0400 Body temperature 98.2 [degF] Dr. Davis Armstrong MD Work Phone: [phone] [place] [address] 07-23-2024 11:37-0400 Diastolic blood pressure 78 mm[Hg] Dr. Davis Armstrong MD Work Phone: [phone] [place] [address] 07-23-2024 11:37-0400 Heart rate 80 /min Dr. Davis Armstrong MD Work Phone: [phone] [place] [address] 07-23-2024 11:37-0400 Respiratory rate 18 /min Dr. Davis Armstrong MD Work Phone: [phone] [place] [address] 07-23-2024 11:37-0400 SaO2% (BldA) [Mass fraction] 97 % Dr. Davis Armstrong MD Work Phone: [facility] 07-23-2024 11:37-0400 Systolic blood pressure 148 mm[Hg] Dr. Davis Armstrong MD Work Phone: [facility] 07-23-2024 07:05-0400 Body height 170.[address] Davis Armstrong MD Work Phone: [facility] 07-23-2024 07:05-0400 Body mass index (BMI) [Ratio] 31.6 kg/m2 Dr. Davis Armstrong MD Work Phone: [facility] 07-23-2024 07:05-0400 Body weight 91.[address] Davis Armstrong MD Work Phone: [phone] [place] [address] 12-27-2022 11:00-0400 Diastolic blood pressure 86 mm[Hg] [facility] 12-27-2022 11:00-0400 Systolic blood pressure 141 mm[Hg] [facility] 12-27-2022 09:36-0400 Heart rate 92 /min [facility] 12-27-2022 09:36-0400 Respiratory rate 26 /min [facility] 12-27-2022 09:36-0400 SaO2% (BldA) [Mass fraction] 99 % [facility] 12-27-2022 07:36-0400 Body height 170.18 cm [facility] 12-27-2022 07:36-0400 Body mass index (BMI) [Ratio] 31.3 kg/m2 [facility] 12-27-2022 07:36-0400 Body temperature 97.2 [degF] [facility] 12-27-2022 07:36-0400 Body weight 90.71 kg [facility] 01-18-2022 17:03-0400 Body height 170.18 cm [facility] 01-18-2022 17:03-0400 Body mass index (BMI) [Ratio] 30.5 kg/m2 [facility] 01-18-2022 17:03-0400 Body temperature 98.7 [degF] [facility] 01-18-2022 17:03-0400 Body weight 88.45 kg [facility] 01-18-2022 17:03-0400 Diastolic blood pressure 96 mm[Hg] [facility] 01-18-2022 17:03-0400 Heart rate 113 /min [facility] 01-18-2022 17:03-0400 Respiratory rate 18 /min [facility] 01-18-2022 17:03-0400 SaO2% (BldA) [Mass fraction] 94 % [facility] 01-18-2022 17:03-0400 Systolic blood pressure 145 mm[Hg] [facility] 01-18-2022 12:06-0400 Body temperature 98.2 [degF] [facility] 01-18-2022 12:06-0400 Diastolic blood pressure 80 mm[Hg] [facility] 01-18-2022 12:06-0400 Heart rate 77 /min [facility] 01-18-2022 12:06-0400 Respiratory rate 18 /min [facility] 01-18-2022 12:06-0400 SaO2% (BldA) [Mass fraction] 97 % [facility] 01-18-2022 12:06-0400 Systolic blood pressure 142 mm[Hg] [facility] 01-16-2022 18:35-0400 Body mass index (BMI) [Ratio] 30.4 kg/m2 [facility] 01-16-2022 18:35-0400 Body weight 88.3 kg [facility] 01-16-2022 10:27-0400 Body temperature 97 [degF] [facility] 01-16-2022 10:27-0400 Diastolic blood pressure 98 mm[Hg] [facility] 01-16-2022 10:27-0400 Heart rate 51 /min [facility] 01-16-2022 10:27-0400 Respiratory rate 18 /min [facility] 01-16-2022 10:27-0400 SaO2% (BldA) [Mass fraction] 98 % [facility] 01-16-2022 10:27-0400 Systolic blood pressure 142 mm[Hg] [facility] 01-16-2022 06:54-0400 Body height 170.18 cm [facility] Work Phone: 01-16-2022 06:54-0400 Body mass index (BMI) [Ratio] 30.6 kg/m2 [facility] 01-16-2022 06:54-0400 Body weight 88.72 kg [facility] 12-19-2021 13:58-0400 Body temperature 97.2 [degF] [facility] 12-19-2021 13:58-0400 Diastolic blood pressure 82 mm[Hg] [facility] 12-19-2021 13:58-0400 Heart rate 76 /min [facility] 12-19-2021 13:58-0400 Respiratory rate 16 /min [facility] 12-19-2021 13:58-0400 SaO2% (BldA) [Mass fraction] 97 % [facility] 12-19-2021 13:58-0400 Systolic blood pressure 148 mm[Hg] [facility] 12-19-2021 09:10-0400 Body height 170.18 cm [facility] Work Phone: 12-19-2021 09:10-0400 Body mass index (BMI) [Ratio] 29.9 kg/m2 [facility] 12-19-2021 09:10-0400 Body weight 86.63 kg [facility] 12-02-2021 23:08-0400 Diastolic blood pressure 82 mm[Hg] [facility] Work Phone: 12-02-2021 23:08-0400 Heart rate 72 /min [facility] Work Phone: 12-02-2021 23:08-0400 Respiratory rate 18 /min [facility] Work Phone: 12-02-2021 23:08-0400 SaO2% (BldA) [Mass fraction] 100 % [facility] Work Phone: 12-02-2021 23:08-0400 Systolic blood pressure 136 mm[Hg] [facility] Work Phone: 12-02-2021 18:27-0400 Body height 170.18 cm [facility] Work Phone: 12-02-2021 18:27-0400 Body mass index (BMI) [Ratio] 29.7 kg/m2 [facility] Work Phone: 12-02-2021 18:27-0400 Body temperature 97.9 [degF] [facility] Work Phone: 12-02-2021 18:27-0400 Body weight 86.18 kg [facility] Work Phone: 08-25-2021 07:28-0400 Body mass index (BMI) [Ratio] 29.7 kg/m2 [facility] Work Phone: 08-25-2021 07:28-0400 Body temperature 98.1 [degF] [facility] Work Phone: 08-25-2021 07:28-0400 Body weight 86.18 kg [facility] Work Phone: 08-25-2021 07:28-0400 Diastolic blood pressure 93 mm[Hg] [facility] Work Phone: 08-25-2021 07:28-0400 Heart rate 73 /min [facility] Work Phone: 08-25-2021 07:28-0400 Respiratory rate 14 /min [facility] Work Phone: 08-25-2021 07:28-0400 SaO2% (BldA) [Mass fraction] 99 % [facility] Work Phone: 08-25-2021 07:28-0400 Systolic blood pressure 176 mm[Hg] [facility] Work Phone: Encounters Encounter Date Encounter Type Care Provider Facility Start: 07-23-2024 End: 07-23-2024 Emergency department patient visit Dr. Davis Armstrong MD Work Phone: -Emergency Department Work Phone: Start: 05-26-2024 End: 05-26-[address] Davis Armstrong MD Work Phone: [facility] Work Phone: Start: 05-26-2024 End: 05-26-[address] Davis Armstrong MD -Laboratory, [facility] Start: 05-26-2024 End: 05-26-2024 ambulatory Davis Armstrong Facility:[facility] Start: 05-19-2024 End: 05-19-[address] Davis Armstrong MD Work Phone: [facility] Work Phone: Start: 05-19-2024 End: 05-19-[address] Davis Armstrong MD -Laboratory, [facility] Start: 05-19-2024 End: 05-19-2024 ambulatory Davis Armstrong Facility:[facility] Start: 01-14-2024 End: 01-14-2024 ambulatory Davis Armstrong Facility:[facility] Start: 09-10-2023 End: 09-10-2023 ambulatory Davis Armstrong Facility:[facility] Start: 05-08-2023 End: 05-08-2023 ambulatory [facility] Work Phone: Start: 05-08-2023 End: 05-08-2023 Patient encounter procedure [facility] Work Phone: Start: 01-08-2023 End: 01-08-2023 ambulatory [facility] Work Phone: Start: 01-08-2023 End: 01-08-[facility] Start: 12-27-2022 End: 12-27-2022 Emergency department patient visit [facility] Work Phone: Start: 10-08-2022 End: 10-08-2022 [facility] Start: 04-08-2022 End: 04-08-2022 ambulatory [facility] Work Phone: Start: 04-08-2022 End: 04-08-2022 Patient encounter procedure [facility] Specimen Start: 03-28-2022 End: 03-28-2022 ambulatory [facility] Work Phone: Start: 03-28-2022 End: 03-28-2022 Patient encounter procedure [facility] Start: 01-18-2022 End: 01-18-2022 Emergency department patient visit [facility] Start: 01-16-2022 End: 01-18-2022 Evaluation and management of inpatient [facility] Start: 01-16-2022 End: 01-16-2022 Admission to same day surgery center [facility] Start: 01-16-2022 End: 01-16-2022 ambulatory [facility] Work Phone: Start: 12-19-2021 End: 12-19-2021 Admission to same day surgery center [facility] Start: 12-19-2021 End: 12-19-2021 ambulatory [facility] Work Phone: Start: 12-18-2021 End: 12-18-2021 ambulatory [facility] Work Phone: Start: 12-18-2021 End: 12-18-2021 Patient encounter procedure [facility] Start: 12-02-2021 End: 12-02-2021 [facility] Start: 10-02-2021 End: 10-02-2021 Patient encounter procedure [facility] Start: 08-25-2021 End: 08-25-2021 Emergency department patient visit [facility] Procedures Date Procedure Procedure Detail Performing Clinician Start: 07-23-2024 SARS-CoV-2, Influenz a & RSV (PCR) Dr. Davis Armstrong MD Work Phone: Start: 07-23-2024 X-ray of chest, PA a nd lateral views Dr. Davis Armstrong MD Work Phone: Start: 07-23-2024 Urnls dip stick/tabl et reagent auto microscopy Dr. Davis Armstrong MD Work Phone: Start: 07-23-[address] Davis Armstrong MD Work Phone: Start: 05-26-2024 Total iron binding c apacity measurement Dr. aDvis Armstrong MD Work Phone: Start: 12-27-2022 CT of head without contrast Start: 12-27-2022 Plain chest X-ray Start: 01-16-2022 Cysto,Transurethal R esec Bladder,Olymp[facility] (Not Applicable) Start: 12-19-2021 Extracorporeal shock wave lithotripsy Start: 12-19-2021 Diagnostic radiograp hy of abdomen Start: 12-02-2021 Computed tomography of abdomen and pelvis with contrast Start: 08-25-2021 Diagnostic radiograp hy of finger Plan of Treatment Date Care Activity Detail Author Start: 07-23-2024 Bacteria identified in Urine by Culture Urine Culture [facility] Start: 07-23-2024 [facility] Start: 07-23-2024 End: 07-23-2024 [facility] Start: 12-27-2022 [facility] Start: 12-27-2022 [facility] Start: 01-18-2022 Referral to service [facility] Start: 01-18-2022 Patient discharge [facility] Start: 01-17-2022 Incentive spirometry [facility] Start: 01-16-2022 [facility] Start: 01-16-2022 Admission procedure [facility] Start: 01-16-2022 Following clinical pathway protocol [facility] Start: 01-16-2022 Anes transurethral resection of bladder tumor ANESTH BLADDER TUMOR SURG [facility] Start: 01-16-2022 Cystourethroscopy w/dest &/rmvl tumor large CYSTOSCOPY AND TREATMENT [facility] Start: 01-16-2022 Ambulation without limitation [facility] Start: 01-16-2022 Medication education [facility] Start: 01-16-2022 Patient discharge [facility] Start: 01-16-2022 Taking patient vital signs [facility] Start: 01-16-2022 End: 01-17-2022 [facility] Start: 12-19-2021 Anes lithotrp xtrcorp shock wave w/o water bath ANESTH KIDNEY STONE DESTRUCT [facility] Start: 12-19-2021 Cysto w/insert ureteral stent CYSTOSCOPY AND TREATMENT [facility] Start: 12-19-2021 Lithotripsy xtrcorp shock wave FRAGMENTING OF KIDNEY STONE [facility] Start: 12-19-2021 Patient discharge [facility] Start: 12-19-2021 Ambulation without limitation [facility] Start: 12-19-2021 Medication education [facility] Start: 12-19-2021 Taking patient vital signs [facility] Start: 12-19-2021 [facility] Start: 08-25-2021 Simple repair scalp/neck/ax/genit/trunk 2.5cm/< RPR S/N/AX/GEN/TRNK 2.5CM/< [facility] Work Phone: Electrocardiographic procedure [facility] Work Phone: Electrocardiographic procedure [facility] Patient Education [facility] Work Phone: [facility] Work Phone: Troponin T.cardiac [Mass/volume] in Serum or Plasma by High sensitivity method [facility] Urine culture [facility] Immunizations Immunization Date Immunization Notes Care Provider Fa chaz 08-25-2021 tetanus toxoid, redu frankie diphtheria toxoid, and acellular pertussis vaccine, adsorbed [facility] Payers Date Payer Category Payer Self-pay [id number] 2021 Medicare [id number] Unknown [employer] [id number] Unknown [id number] [id number] Unknown [id number] [id number] [id number] Unknown [id number] [id number] [id number] Unknown [id number] [id number] [id number] Social History Date Type Detail Facility Start: 12-02-2021 End: 12-27-2022 Tobacco smoking status NHIS Unknown if ever smoked [facility] Start: 12-18-2018 Non-smoker [facility] Start: 1950 Sex Assigned At Male [facility] Start: 12-27-2022 End: 07-23-2024 Tobacco smoking status NHIS Never smoked tobacco (finding) [facility] Start: 05-31-2024 End: 06-02-2024 Sex Male (finding) [facility] Medical Equipment Procedure Code Equipment Code Equipment Origin al Text Equipment Identifier Dates Lithotripsy, [id number] ([id number]) Polymeric uret eral stent [id number] FDA Start: 12-19-2021 Goals Date Patient Goal Desired Activity /State Functional Status Date Assessment Result Facility 01-18-2022 Functional status Activity Ability Indepe ndent [facility] Work Phone: 01-17-2022 Functional status Ambulates [facility] Work Phone: Mental Status Date Assessment Result Facility 07-23-2024 Cognitive function Level Of Cons ciousness Awake;Alert;Appropriate;Follow s Commands [facility] Work Phone: 12-27-2022 Cognitive function Level Of Cons ciousness Awake;Alert;Appropriate;Follow s Commands [facility] Work Phone: 01-18-2022 Cognitive function Voice/Name [facility] Work Phone: 01-16-2022 Cognitive function Level Of Cons ciousness Awake;Alert;Appropriate;Follow s Commands [facility] Work Phone: 12-19-2021 Cognitive function Touch/Shaking [facility] Work Phone: 12-19-2021 Cognitive function Patient Orien tation Person;Place;Time [facility] Work Phone: Radiology Diagnostic study note 07-23-2024 Note Date & Type Note Facility 07-23-2024 Radiology Diagnostic study note [facility] Imaging Services [address] [place] [address] Chest PA and Lateral MR#: [id number] Acct: [id number] Name: YANET CORRIGAN Rep #: [id number] : [id number] M 74 From: Jaguar Ontiveros MD PCP: Dr. Davis Armstrong MD Status: RE G ER Study:Chest PA and Lateral Date of Exam: 07/23/24 Exam# [id number] Ordering Dr: Osmany Evans DO PROCEDURE: CHEST PA AND LATERAL 07/23/2024 REASON FOR EXAM: COUGH TECHNIQUE: Frontal and lateral views of the chest. COMPARISON: 12/27/2022 FINDINGS: The lungs appear clear. Pulmonary vascularity appears within limits. No pleural effusion. The cardiac and mediastinal contours appear within limits. RAD/Chest PA and Lateral IMPRESSION: No evidence of acute disease. Reading Location: [facility] CC: Dr. Osmany Evans DO; Dr. 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 [facility] Evaluation note Note Date & Type Note Facility Evaluation note No assessment information availa ble [facility] Work Phone: Hospital Discharge instructions Note Date & Type Note Facility Hospital Discharge instructions Ambulatory [id number] Lead EKG [[facility]] Time Frame: 01/16/22, Location: None Selected Additional Instructions Implant Used?: No [facility] Work Phone: Reason for referral (narrative) Note Date & Type Note Facility Reason for referral (narrative) No reason for referral information available [facility] Work Phone: Chief Complaint and Reason for Visit Chief Complaint left index finger RIGHT FLANK PAIN Chief Complaint left index finger RIGHT FLANK PAIN rt eswl, ureteral stent placement Chief Complaint RIGHT FLANK PAIN rt eswl, ureteral stent placement CYSTO, TURBT, OLYMPUS Chief Complaint rt eswl, ureteral st ent placement CYSTO, TURBT, OLYMPUS HEMATURIA, UNINARY RETENTION DUPREE PRE-OP LABS WASC BLADDER TUMOR Chief Complaint HTN Chief Complaint PSA Chief Complaint Admit Date GENERAL July 23, 2024 7:04am Advance Directives No Advanced Directives Records Found Advance Directive Response Recorded Date/ Time Living Will Yes December 02, 2021 6:54pm Power of Card Table Attendant No November 6:54pm Advance Directive Response Recorded Date/ Time Living Will No December 12, 2021 10:17am Power of Card Table Attendant No November 10:17am Advance Directive Response Recorded Date/ Time Living Will No January 09 2:13pm Power of Card Table Attendant No January 09, 2022 2:13pm Advance Directive Response Recorded Date/ Time Living Will Yes January 18 4:22pm Power of Card Table Attendant No January 18, 2022 4:22pm Advance Directive Response Recorded Date/ Time Living Will Yes December 27 7:46am Power of Card Table Attendant No December 27, 2022 7:46am Advance Directive Response Recorded Date/ Time Living Will Yes December 27 6:46am Power of Card Table Attendant No December 27, 2022 6:46am Advance Directive Response Recorded Date/ Time Do you have a Healthcare Power of Card Table Attendant? No July 23, 2024 7:21am Summary Purpose Family History No Family History Records Found Additional Source Comments Goals (unrecognized section and content) Goals may be documented in a n alternate sectionGoals may be documented in an alternate sectionGoals may be documented in an alternate sectionGoals may be documented in an alternate sectionGoals may be documented in an alternate sectionGoals may be documented in an alternate sectionGoals may be documented in an alternate sectionGoals may be documented in an alternate section Care Teams (unrecognized sec tion and content) Team Status: Active Member Role Status Dates Dr. Davis Prajapati MD Family Provider Active Dr. Davis Armstrong MD Primary Care Provider Active Team Status: Inactive Member Role Status Dates Dr. Davis Armstrong MD Primary Care Provider Active Dr. Dwayne Mayes MD Attending Provider, Referr ing Provider Active Team Status: Inactive Member Role Status Dates Dr. Davis Armstrong MD Primary Care Provider, Attend ing Provider Active Team Status: Inactive Member Role Status Dates Dr. Georgina Hatch MD Emergency Provider Active Dr. Davis Armstrong MD Primary Care Provider Active Dr. Dwayne Mayes MD Admit Provider, Attending Provider Active Team Status: Inactive Member Role Status Dates Dr. Davis Armstrong MD Primary Care Provider Active Dr. Tayo Garner DO Attending Provider, Emergency Pro vider Active Team Status: Active Member Role Status Dates Dr. Davis Armstrong MD Primary Care Provider Active Dr. Dwayne Mayes MD Attending Provider Active Team Status: Inactive Member Role Status Dates Dr. Davis Armstrong MD Primary Care Provider Active Dr. Dwayne Mayes MD Attending Provider Active Team Status: Inactive Member Role Status Dates Dr. Davis Armstrong MD Primary Care Provider Active Dr. Dane Sterling DO Emergency Provider Active Team Status: Inactive Member Role Status Dates Dr. Davis Armstrong MD Primary Care Provider Active Dr. Dane Sterling DO Attending Provider, Emergency Provider Active Team Status: Inactive Member Role Status Dates Dr. Davis Armstrong MD Primary Care Provider Active Start: May 19, 2024 End: May 19, 2024 Dr. Davis Armstrong MD Attending Provider Active Start: May 19, 2024 End: May 19, 2024 Dr. Davis Armstrong MD Referring Provider Active Start: May 19, 2024 End: May 19, 2024 Team Status: Active Member Role Status Dates Dr. Davis Armstrong MD Primary Care Provider Active Start: May 26, 2024 Dr. Davis Armstrong MD Attending Provider Active Start: May 26, 2024 Dr. Davis Armstrong MD Referring Provider Active Start: May 26, 2024 Team Status: Inactive Member Role Status Dates Dr. Davis Armstrong MD Primary Care Provider Active Start: May 26, 2024 End: May 26, 2024 Dr. Davis Armstrong MD Attending Provider Active Start: May 26, 2024 End: May 26, 2024 Dr. Davis Armstrong MD Referring Provider Active Start: May 26, 2024 End: May 26, 2024 Team Status: Active Member Role Status Dates Dr. Davis Armstrong MD Primary Care Provider Active Team Status: Inactive Member Role Status Dates Dr. Davis Armstrong MD Primary Care Provider Active Start: July 23, 2024 End: July 23, 2024 Dr. Osmany Evans DO Emergency Provider Active Start: July 23, 2024 End: July 23, 2024 (unrecognized sect ion and content) No Status Records Found INFORMATION SOURCE (unrecogn ized section and content) DATE CREATED AUTHOR 07/30/2024 [facility] FOR RECORDS PERTAINING TO PATIENTS WHO ARE OR HAVE BEEN ENROLLED IN A CHEMICAL DEPENDENCY/SUBSTANCEABUSE PROGRAM, SOME INFORMATION MAY BE OMITTED. This clinical summary was aggregated from multiple sources. Caution should be exercised in using it in the provision of clinical care. This summary normalizes information from multiple sources, and as a consequence, information in this document may materially change the coding, format and clinical context of patient data. In addition, data may be omitted in some cases. CLINICAL DECISIONS SHOULD BE BASED ON THE PRIMARY CLINICAL RECORDS. [employer] [facility]. provides no warranty or guarantee of the accuracy or completeness of information in this document.
--- OUTSIDE RECORDS SUMMARY | 2024-09-18 14:42 | XMS RPT_ITS | CCD ---
Author Organization [facility] Care Team Providers Care Obstetrics/Gynecology Nurse Name Role Phone Patti SANTIAGO, Dr. Davis Wu Primary Care Provider Patti SANTIAGO, Dr. Davis Wu Attending Provider [phone] Patti SANTIAGO, Dr. Davis Wu Referring Provider [phone] Dr. Osmany Evans DO Emergency Provider Davis Armstrong Primary Care Unavailable Davis Armstrong Attending Unavailable Davis Armstrong Referring Unavailable aDvis Armstrong Referring Unavailable Davis Armstrong Primary Care [...] sources) Penicillins Allergy to substance 12-19-2021 Other [facility] (1 source) Penicillins Drug allergy (disorder) 07-23-2024 [facility] Repository Medications Current Medications Medication Drug Class(es) [...] infection level. Enterococcus faecalis Beta Lactamase-Reportable Negative Hardin Count 80,000-100,000 GNR Hardin Count <1000 Gram negative buffy Ampicillin Islt YOLANDA <=2 Ciprofloxacin Islt YOLANDA >=8 R Gentamicin Synergy Susc Islt SYN-R levoFLOXacin Islt YOLANDA >=8 R Linezolid Islt YOLANDA 2 S Nitrofurantoin Islt YOLANDA <=16 S Streptomycin High Pot Susc Islt SYN-S S Tetracycline Islt YOLANDA >=16 R Vancomycin Islt YOLANDA 1 S Normal [facility] Comment on above: Performed By: #### M 100.2200 #### [facility] Laboratory [address] [place], [address] Absolute lymphocyte countOrd ered By: Osmany Evans on 07-23-2024 Lymphocytes Auto (Unsp spec) [#/Vol] 0.43 10*3/uL Low 0.83-4.51 [facility] Absolute neutrophil countOrd ered By: Osmany Evans on 07-23-2024 Neutrophils (Bld) [#/Vol] 9.3 10*3/uL High 2.0-7.7 [facility] Anion gap in Serum or Plasma Ordered By: Osmany Evans on 07-23-2024 Anion gap [Moles/Vol] 11 mmol/L 5-15 [facility] Automated lymphocyte count a s percentage of total leukocytesOrdered By: Osmany Evans on 07-23-2024 Lymphocytes/100 WBC Auto (Unsp spec) 4.0 % Low 19-41 [facility] BUN/creatinine ratioOrdered By: Osmany Evans on 07-23-2024 Urea nitrogen/Creatinine [Mass ratio] 19.5 mg/mg 10-20 [facility] Basic Metabolic Profile (BMP )on 07-23-2024 BUN/CRE 19.5 RATIO Normal - [facility] Comment on above: Performed By: #### L 500.2500, L100.0100 #### [facility] Laboratory [address] [place], [address] Calcium [Mass/Vol] 9.1 mg/dL Normal 7.6-11.0 [facility] Comment on above: Performed By: #### L 500.2500, L100.0100 #### [facility] Laboratory [address] [place], [address] Chloride [Moles/Vol] 102 mmol/L Normal 98-108 [facility] Comment on above: Performed By: #### L 500.2500, L100.0100 #### [facility] Laboratory [address] [place], [address] CO2 [Moles/Vol] 23.1 mmol/L Normal 21.0-32.0 [facility] Comment on above: Performed By: #### L 500.2500, L100.0100 #### [facility] Laboratory [address] [place], [address] Creatinine [Mass/Vol] 0.95 mg/dL Normal 0.70-1.20 [facility] Comment on above: Performed By: #### L 500.2500, L100.0100 #### [facility] Laboratory [address] [place], [address] ECRCL 74.77 ml/min Normal 50-250 [facility] Comment on above: Performed By: #### L 500.2500, L100.0100 #### [facility] Laboratory [address] [place], [address] GAP 11 Normal 5-15 [facility] Comment on above: Performed By: #### L 500.2500, L100.0100 #### [facility] Laboratory [address] [place], [address] GFR/1.73 sq M.predicted among non-blacks MDRD (S/P/Bld) [Vol rate/Area] 84 mL/min/{1.73_m2} Normal >60 [facility] Comment on above: Result Comment: mL/m in/1.73m2 CKD-EPI Creatinine Equation (2020) Performed By: #### L 500.2500, L100.0100 #### [facility] Laboratory [address] [place], [address] Glucose [Mass/Vol] 100 mg/dL High 70-99 [facility] Comment on above: Performed By: #### L 500.2500, L100.0100 #### [facility] Laboratory [address] [place], [address] Potassium [Moles/Vol] 3.9 mmol/L Normal 3.3-5.1 [facility] Comment on above: Performed By: #### L 500.2500, L100.0100 #### [facility] Laboratory [address] [place], [address] Sodium [Moles/Vol] 136 mmol/L Normal 133-145 [facility] Comment on above: Performed By: #### L 500.2500, L100.0100 #### [facility] Laboratory [address] [place], [address] Urea nitrogen [Mass/Vol] 19 mg/dL Normal 4-19 [facility] Comment on above: Performed By: #### L 500.2500, L100.0100 #### [facility] Laboratory [address] [place], [address] Basophil percentageOrdered B y: Osmany Evans on 07-23-2024 Basophils/100 WBC (Bld) 0.4 % 0-1 [facility] Bilirubin Test strip Ql (U)O rdered By: Osmany Evans on 07-23-2024 Bilirubin Ql (U) Negative Negative [facility] CBC W/Diff, Automatedon Absolute Lymph 0.43 X10 3/uL Low 0.83-4.51 [facility] Comment on above: Performed By: #### L 500.2500, L100.0100 #### [facility] Laboratory [address] [place], [address] Absolute Neut 9.3 X10 3/uL High 2.0-7.7 [facility] Comment on above: Performed By: #### L 500.2500, L100.0100 #### [facility] Laboratory [address] [place], [address] Basophils/100 WBC (Bld) 0.4 % Normal 0-1 [facility] Comment on above: Performed By: #### L 500.2500, L100.0100 #### [facility] Laboratory [address] [place], [address] Eosinophils/100 WBC (Bld) 0.2 % Normal 0-5 [facility] Comment on above: Performed By: #### L 500.2500, L100.0100 #### [facility] Laboratory [address] [place], [address] Erythrocyte distribution width (RBC) [Ratio] 13.3 % Normal 11.6-14.6 [facility] Comment on above: Performed By: #### L 500.2500, L100.0100 #### [facility] Laboratory [address] [place], [address] Hematocrit (Bld) [Volume fraction] 40.1 % Normal 40-54 [facility] Comment on above: Performed By: #### L 500.2500, L100.0100 #### [facility] Laboratory [address] [place], [address] Hemoglobin (Bld) [Mass/Vol] 13.8 g/dL Normal 13.0-16.5 [facility] Comment on above: Performed By: #### L 500.2500, L100.0100 #### [facility] Laboratory [address] [place], [address] IG% 0.600 Normal 0.0-0.9 [facility] Comment on above: Result Comment: IG% - Immature Granulocytes (promyelocytes, myelocytes and metamyelocytes) > 1% indicates that a LEFT SHIFT is Present. Performed By: #### L 500.2500, L100.0100 #### [facility] Laboratory [address] [place], [address] Lymphocytes/100 WBC (Bld) 4.0 % Low 19-41 [facility] Comment on above: Performed By: #### L 500.2500, L100.0100 #### [facility] Laboratory [address] [place], [address] MCH (RBC) [Entitic mass] 32.0 pg Normal 27.0-32.0 [facility] Comment on above: Performed By: #### L 500.2500, L100.0100 #### [facility] Laboratory [address] [place], [address] MCHC (RBC) [Mass/Vol] 34.4 g/dL Normal 32-36 [facility] Comment on above: Performed By: #### L 500.2500, L100.0100 #### [facility] Laboratory [address] [place], [address] MCV (RBC) [Entitic vol] 93.0 fL Normal 80-94 [facility] Comment on above: Performed By: #### L 500.2500, L100.0100 #### [facility] Laboratory [address] [place], [address] Monocytes/100 WBC (Bld) 8.2 % Normal 0-10 [facility] Comment on above: Performed By: #### L 500.2500, L100.0100 #### [facility] Laboratory [address] [place], [address] Neutrophils/100 WBC (Bld) 86.6 % High 47-70 [facility] Comment on above: Performed By: #### L 500.2500, L100.0100 #### [facility] Laboratory [address] [place], [address] Nucleated RBC (Bld) [#/Vol] 0 10*3/uL Normal 0-5 [facility] Comment on above: Performed By: #### L 500.2500, L100.0100 #### [facility] Laboratory [address] [place], [address] Platelet mean volume (Bld) [Entitic vol] 10.4 fL Normal 6.2-12.0 [facility] Comment on above: Performed By: #### L 500.2500, L100.0100 #### [facility] Laboratory [address] [place], [address] Platelets (Bld) [#/Vol] 224 10*3/uL Normal 150-450 [facility] Comment on above: Performed By: #### L 500.2500, L100.0100 #### [facility] Laboratory [address] [place], [address] RBC (Bld) [#/Vol] 4.31 10*6/uL Low 4.6-6.2 [facility] Comment on above: Performed By: #### L 500.2500, L100.0100 #### [facility] Laboratory [address] [place], [address] RDW SD 45.2 fl High 35.1-43.9 [facility] Comment on above: Performed By: #### L 500.2500, L100.0100 #### [facility] Laboratory [address] [place], [address] WBC (Bld) [#/Vol] 10.7 10*3/uL Normal 4.4-11.0 [facility] Comment on above: Performed By: #### L 500.2500, L100.0100 #### [facility] Laboratory [address] [place], [address] Carbon dioxide, total [Moles /volume] in Central venous bloodOrdered By: Osmany Evans on 07-23-2024 CO2 [Moles/Vol] 23.1 mmol/L 21.0-32.0 [facility] Chest PA and Lateralon 07-23 Chest PA and Lateral [facility] Imaging Services [address] [place] [address] Chest PA and Lateral MR#: [id number] Acct: [id number] Name: YANET CORRIGAN Rep #: [id number] : 1950 M 74 From: Naveen Ontiveros MD PCP: Dr. Davis Armstrong MD Status: [facility] ER Study: Chest PA and Lateral Date of Exam: 07/23/24 Exam# [id number] Ordering Dr: Osmany Evans DO PROCEDURE: CHEST PA AND LATERAL 07/23/2024 REASON FOR EXAM: COUGH TECHNIQUE: Frontal and lateral views of the chest. COMPARISON: 12/27/2022 FINDINGS: The lungs appear clear. Pulmonary vascularity appears within limits. No pleural effusion. The cardiac and mediastinal contours appear within limits. RAD/Chest PA and Lateral IMPRESSION: No evidence of acute disease. Reading Location: [facility] CC: Dr. Osmany Evans DO; Dr. Davis Armstrong MD Mailing Section Clerk: Signed Normal [facility] Chloride assayOrdered By: Mark Evans on 07-23-2024 Chloride [Moles/Vol] 102 mmol/L 98-108 [facility] Emergency Department Summary on 07-23-2024 Emergency Department Summary [facility] Medical Records Department [address] [place] [address] Emergency Department Summary 07/23/24 MR#: [id number] Acct: [id number] Name: YANET CORRIGAN Rep #: [id number] : 1950 74 From: Osmany Evans DO PCP: Dr. Davis Armstrong MD Status:[facility] ER Location: ED HPI History of Present [...] and bronchitis (more content not included)... Normal [facility] Eosinophil percentageOrdered By: Osmany Evans on 07-23-2024 Eosinophils/100 WBC (Bld) 0.2 % 0-5 [facility] Erythrocyte distribution wid th ratioOrdered By: Osmany Evans on 07-23-2024 Erythrocyte distribution width (RBC) [Ratio] 13.3 % 11.6-14.6 [facility] Erythrocyte distribution wid th standard deviationOrdered By: Osmany Evans on 07-23-2024 Erythrocyte distribution width (RBC) [Ratio] 45.2 fl High 35.1-43.9 [facility] Glomerular filtration rate ( GFR) estimation/1.73 sq m using serum, plasma, or whole bOrdered By: Osmany Evans on 07-23-2024 GFR/1.73 sq M.predicted among non-blacks MDRD (S/P/Bld) [Vol rate/Area] 84 mL/min/{1.73_m2} >60 [facility] Comment on above: mL/min/1.73m2 CKD-EP I Creatinine Equation (2020) Hematocrit Auto (Bld) [Volum e fraction]Ordered By: Osmany Evans on 07-23-2024 Hematocrit (Bld) [Volume fraction] 40.1 % 40-54 [facility] Hemoglobin measurementOrdere d By: Osmany Evans on 07-23-2024 Hemoglobin (Bld) [Mass/Vol] 13.8 g/dL 13.0-16.5 [facility] Immature granulocytes/100 WB C Auto (Bld)Ordered By: Osmany Evans on 07-23-2024 Immature granulocytes/100 WBC (Bld) 0.600 % 0.0-0.9 [facility] Comment on above: IG% - Immature Granu locytes (promyelocytes, myelocytes and metamyelocytes) > 1% indicates that a LEFT SHIFT is Present. Influenza virus A and B and SARS-CoV-2 (COVID-19) and Respiratory syncytial virus RNAOrdered By: Osmany Evans on 07-23-2024 SARS-CoV-2 (COVID-19) RNA AMELIA+probe Ql (Unsp spec) [facility] Ketones Test strip Ql (U)Ord ered By: Osmany Evans on 07-23-2024 Ketones Ql (U) 5 mg/dl High Negative [facility] L499.0042on 07-23-2024 Trop T High Sen 33 ng/L High <=22 [facility] Comment on above: Performed By: #### L 500.2500, L100.0100 #### [facility] Laboratory [address] [place] [address]. [place], [address] L499.0043on 05-09-2025 Trop T High Sen Normal <=22 [facility] Comment on above: Result Comment: LUIZ ENT DISCHARGED Performed By: #### L 499.0043 #### [facility] Laboratory [address] [place], [address] L501.4021on 07-23-2024 Trop T High Sen 36 ng/L High <=22 [facility] Comment on above: Performed By: #### L 501.4021 ####[facility] [address] [place], [address] M100.678on 07-23-2024 M100.678 Pending SARS-CoV-2 (COVID 19) Negative INFLUENZA A Negative INFLUENZA B Negative RSV PCR Negative Normal [facility] Comment on above: Performed By: #### L 500.2500, L100.0100 #### [facility] Laboratory [address] [place], [address] MCV (mean corpuscular volume ) determinationOrdered By: Osmany Evans on 07-23-2024 MCV (RBC) [Entitic vol] 93.0 fL 80-94 [facility] Mean corpuscular hemoglobin (MCH) determinationOrdered By: Osmany Evans on 07-23-2024 MCH (RBC) [Entitic mass] 32.0 pg 27.0-32.0 [facility] Mean corpuscular hemoglobin concentration (MCHC) determinationOrdered By: Osmany Evans on 07-23-2024 MCHC (RBC) [Mass/Vol] 34.4 g/dL 32-36 [facility] Mean platelet volume determi nationOrdered By: Osmany Evans on 07-23-2024 Platelet mean volume (Bld) [Entitic vol] 10.4 fL 6.2-12.0 [facility] Microscopic analysis of urin e for red blood cells (RBC)Ordered By: Omsany Evans on 07-23-2024 Microscopic analysis of urine for red blood cells (RBC) 5-10 SEEN /hpf 0-5 [facility] Monocyte percentageOrdered B y: Osmany Evans on 07-23-2024 Monocytes/100 WBC (Bld) 8.2 % 0-10 [facility] Mucus LM Ql (Urine sed)Order ed By: Osmany Evans on 07-23-2024 Mucus Ql (Urine sed) 0 SEEN /hpf [facility] Neutrophil percentageOrdered By: Osmany Evans on 07-23-2024 Neutrophils/100 WBC (Bld) 86.6 % High 47-70 [facility] Nitrite Test strip Ql (U)Ord ered By: Osmany Evans on 07-23-2024 Nitrite Ql (U) Negative Negative [facility] Nucleated red blood cell per centageOrdered By: Osmany Evans on 07-23-2024 Nucleated RBC/100 WBC (Bld) [Ratio] 0 % 0-5 [facility] Platelet countOrdered By: Mark Evans on 07-23-2024 Platelets (Bld) [#/Vol] 224 10*3/uL 150-450 [facility] Potassium measurement (mass/ volume)Ordered By: Osmany Evans on 07-23-2024 Potassium (Unsp spec) [Mass/Vol] 3.9 mmol/L 3.3-5.1 [facility] Protein Test strip Ql (U)Ord ered By: Osmany Evans on 07-23-2024 Protein Ql (U) 100 mg/dl High Negative [facility] RBC Auto (Bld) [#/Vol]Ordere d By: Osmany Evans on 07-23-2024 RBC (Bld) [#/Vol] 4.31 10*6/uL Low 4.6-6.2 [facility] Serum creatinine measurement (mass/volume)Ordered By: Osmany Evans on 07-23-2024 Creatinine [Mass/Vol] 0.95 mg/dL 0.70-1.20 [facility] Serum glucose measurement (m ass/volume)Ordered By: Osmany Evans on 07-23-2024 Glucose [Mass/Vol] 100 mg/dL High 70-99 [facility] Serum or plasma calcium ash urement (mass/volume)Ordered By: Osmany Evans on 07-23-2024 Calcium [Mass/Vol] 9.1 mg/dL 7.6-11.0 [facility] Serum or plasma urea nitroge n measurement (mass/volume)Ordered By: Osmany Evans on 07-23-2024 Urea nitrogen [Mass/Vol] 19 mg/dL 4-19 [facility] Sodium levelOrdered By: Osmany Evans on 07-23-2024 Sodium [Moles/Vol] 136 mmol/L 133-145 [facility] Squamous epithelial cells de tection in urine sediment by light microscopyOrdered By: Osmany Evans on 07-23-2024 Epithelial cells.squamous LM Ql (Urine sed) 0 SEEN /hpf 0-5 [facility] Troponin T.cardiac [Mass/vol ume] in Serum or Plasma by High sensitivity methodOrdered By: Osmany Evans on 07-23-2024 Troponin T.cardiac High sensitivity method [Mass/Vol] 33 ng/L High <22 [facility] Troponin T.cardiac High sensitivity method [Mass/Vol] 36 ng/L High <22 [facility] Urinalysis, Completeon 07-23 BACTERIA 1+ /hpf Normal None Seen [facility] Comment on above: Order Comment: CLEAN CATCH Performed By: #### L 500.2500, L100.0100 #### [facility] Laboratory [address] [place], [address] RBC 5-10 SEEN Normal [address] Comment on above: Order Comment: CLEAN CATCH Performed By: #### L 500.2500, L100.0100 #### [facility] Laboratory [address] [place], [address] WBC 10-25 SEEN Normal [address] [place] [address] Comment on above: Order Comment: CLEAN CATCH Performed By: #### L 500.2500, L100.0100 #### [facility] Laboratory [address] [place], [address] EPI,SQUAMOUS 0 SEEN Normal 0-5 [facility] Comment on above: Order Comment: CLEAN CATCH Performed By: #### L 500.2500, L100.0100 #### [facility] Laboratory [address] [place], [address] Mucus Ql (Urine sed) 0 SEEN Normal [facility] Comment on above: Order Comment: CLEAN CATCH Performed By: #### L 500.2500, L100.0100 #### [facility] Laboratory [place], [address] Urine clarityOrdered By: Olga Evans on 07-23-2024 Clarity (U) Clear Clear [facility] Urine color determinationOrd ered By: Osmany Evans on 07-23-2024 Color (U) Yellow Yellow [facility] Urine glucose detectionOrder ed By: Osmany Evans on 07-23-2024 Glucose Ql (U) Normal mg/dl Normal [facility] Urine leukocyte esterase det ection by dipstickOrdered By: Osmany Evasn on 07-23-2024 Leukocyte esterase Test strip Ql (U) 25 /ul High Negative [facility] Urine pHOrdered By: Osmany kerns on 07-23-2024 pH (U) 6.5 [pH] 5.0 - 8.0 [facility] Urine sediment bacteria coun t by microscopy (number/high power field)Ordered By: Osmany Evans on 07-23-2024 Bacteria LM.HPF (Urine sed) [#/Area] 1 /[HPF] None Seen [facility] Urine specific gravity measu rementOrdered By: Osmany Evans on 07-23-2024 Specific gravity (U) [Rel density] 1.010 1.002-1.030 [facility] Urine urobilinogen measureme ntOrdered By: Osmany Evans on 07-23-2024 Urobilinogen Ql (U) 1 mg/dl High Normal [facility] White blood cell (WBC) count Ordered By: Osmany Evans on 07-23-2024 WBC (Bld) [#/Vol] 10.7 10*3/uL 4.4-11.0 [facility] White blood cell countOrdere d By: Osmany Evans on 07-23-2024 White blood cell count 10-25 SEEN /hpf 0-5 [facility] Calculated total iron bindin g capacityOrdered By: Davis Armstrong on 05-26-2024 Total Iron Binding Capacity 299 ug/dL 250-450 [facility] Ferritinon 05-26-2024 Ferritin [Mass/Vol] 273 ng/mL Normal 37-417 [facility] Comment on above: Performed By: #### L 500.2500, L100.0100 #### [facility] Laboratory [address] [place], [address] Iron (Unsp spec) [Mass/Mass] Ordered By: Davis Armstrong on 05-26-2024 Iron [Mass/Vol] 112 ug/dL 65-175 [facility] Iron measurement (mass/mass) Ordered By: Davis Armstrong on 05-26-2024 Iron (Unsp spec) [Mass/Mass] 112 ug/dL 65-175 [facility] Iron saturation [Mass fracti on]Ordered By: Davis Armstrong on 05-26-2024 Iron Saturation 37.0 % 9-55 [facility] Iron+Iron Binding Capacityon 05-26-2024 Iron [Mass/Vol] 112 ug/dL Normal 65-175 [facility] Comment on above: Performed By: #### L 500.2500, L100.0100 #### [facility] Laboratory [address] [place], [address] IRON SATURATION 37.0 Normal 9-55 [facility] Comment on above: Performed By: #### L 500.2500, L100.0100 #### [facility] Laboratory [address] [place], [address] TIBC 299 ug/dL Normal 250-450 [facility] Comment on above: Performed By: #### L 500.2500, L100.0100 #### [facility] Laboratory [address] [place], [address] UIBC 187 ug/dL Low 228-428 [facility] Comment on above: Performed By: #### L 500.2500, L100.0100 #### [facility] Laboratory [address] [place], [address] L503.0106on 05-26-2024 Cobalamin (Vitamin B12) [Mass/Vol] 651 pg/mL Normal 180-914 [facility] Comment on above: Performed By: #### L 500.2500, L100.0100 #### [facility] Laboratory [place], [address] No Panel InformationOrdered By: Davis Armstrong on 05-26-2024 Unsaturated Iron Binding Capacity 187 ug/dL Low 228-428 [facility] Serum or plasma ferritin elham surement (mass/volume)Ordered By: Davis Armstrong on 05-26-2024 Ferritin [Mass/Vol] 273 ng/mL 37-417 [facility] Serum or plasma iron saturat ion measurement (mass fraction)Ordered By: Davis Armstrong on 05-26-2024 Iron saturation [Mass fraction] 37.0 % 9-55 [facility] Vitamin B12 ser/plasOrdered By: Davis Armstrong on 05-26-2024 Cobalamin (Vitamin B12) [Mass/Vol] 651 pg/mL 180-914 [facility] Absolute lymphocyte countOrd ered By: Davis Armstrong on 05-19-2024 Lymphocytes Auto (Unsp spec) [#/Vol] 0.85 10*3/uL 0.83-4.51 [facility] Absolute neutrophil countOrd ered By: Davis Armstrong on 05-19-2024 Neutrophils (Bld) [#/Vol] 4.0 10*3/uL 2.0-7.7 [facility] Albumin DL <= 20 mg/L (U) [M ass/Vol]Ordered By: Davis Armstrong on 05-19-2024 Urine Random Microalbumin 28.6 mg/L NO RANGE EST. [facility] Anion gap in Serum or Plasma Ordered By: Davis Armstrong on 05-19-2024 Anion gap [Moles/Vol] 13 mmol/L 5-15 [facility] Automated lymphocyte count a s percentage of total leukocytesOrdered By: Davis Armstrong on 05-19-2024 Lymphocytes/100 WBC Auto (Unsp spec) 15.5 % Low 19-41 [facility] BUN/creatinine ratioOrdered By: Davis Armstrong on 05-19-2024 Urea nitrogen/Creatinine [Mass ratio] 25.9 mg/mg High 10-20 [facility] Basophil percentageOrdered B y: Davis Armstrong on 05-19-2024 Basophils/100 WBC (Bld) 1.1 % High 0-1 [facility] Bilirubin, totalOrdered By: Davis Armstrong on 05-19-2024 Bilirubin [Mass/Vol] 0.61 mg/dL 0.00-1.30 [facility] CBC W/Diff, Automatedon Absolute Lymph 0.85 X10 3/uL Normal 0.83-4.51 [facility] Comment on above: Order Comment: Order Date: 05/19/24Order Info: [id number] - CBCD Performed By: #### L 100.0100, L501.9985, L501.5200, L501.9520, L500.4050, L500.4100 ####[facility] [address] [place], [address] Absolute Neut 4.0 X10 3/uL Normal 2.0-7.7 [facility] Comment on above: Order Comment: Order Date: 05/19/24Order Info: [id number] - CBCD Performed By: #### L 100.0100, L501.9985, L501.5200, L501.9520, L500.4050, L500.4100 ####[facility] [address] [place], [address] Basophils/100 WBC (Bld) 1.1 % High 0-1 [facility] Comment on above: Order Comment: Order Date: 05/19/24Order Info: [id number] - CBCD Performed By: #### L 100.0100, L501.9985, L501.5200, L501.9520, L500.4050, L500.4100 ####[facility] [address] [place], [address] Eosinophils/100 WBC (Bld) 2.2 % Normal 0-5 [facility] Comment on above: Order Comment: Order Date: 05/19/24Order Info: [id number] - CBCD Performed By: #### L 100.0100, L501.9985, L501.5200, L501.9520, L500.4050, L500.4100 ####[facility] [address] [place], [address] Erythrocyte distribution width (RBC) [Ratio] 12.7 % Normal 11.6-14.6 [facility] Comment on above: Order Comment: Order Date: 05/19/24Order Info: [id number] - CBCD Performed By: #### L 100.0100, L501.9985, L501.5200, L501.9520, L500.4050, L500.4100 ####[facility] [address], [address]( Hematocrit (Bld) [Volume fraction] 38.2 % Low 40-54 [facility] Comment on above: Order Comment: Order Date: 05/19/24Order Info: [id number] - CBCD Performed By: #### L 100.0100, L501.9985, L501.5200, L501.9520, L500.4050, L500.4100 ####[facility] [address] [place], [address] Hemoglobin (Bld) [Mass/Vol] 12.7 g/dL Low 13.0-16.5 [facility] Comment on above: Order Comment: Order Date: 05/19/24Order Info: [id number] - CBCD Performed By: #### L 100.0100, L501.9985, L501.5200, L501.9520, L500.4050, L500.4100 ####[facility] [address] [facility] [place], [address] IG% 0.400 Normal 0.0-0.9 [facility] Comment on above: Order Comment: Order Date: 05/19/24Order Info: [id number] - CBCD Result Comment: IG% - Immature Granulocytes (promyelocytes, myelocytes and metamyelocytes) > 1% indicates that a LEFT SHIFT is Present. Performed By: #### L 100.0100, L501.9985, L501.5200, L501.9520, L500.4050, L500.4100 ####[facility] [address] [place], [address] Lymphocytes/100 WBC (Bld) 15.5 % Low 19-41 [facility] Comment on above: Order Comment: Order Date: 05/19/24Order Info: [id number] - CBCD Performed By: #### L 100.0100, L501.9985, L501.5200, L501.9520, L500.4050, L500.4100 ####[facility] [address] [place], [address] MCH (RBC) [Entitic mass] 30.8 pg Normal 27.0-32.0 [facility] Comment on above: Order Comment: Order Date: 05/19/24Order Info: [id number] - CBCD Performed By: #### L 100.0100, L501.9985, L501.5200, L501.9520, L500.4050, L500.4100 ####[facility] [address] [place], [address] MCHC (RBC) [Mass/Vol] 33.2 g/dL Normal 32-36 [facility] Comment on above: Order Comment: Order Date: 05/19/24Order Info: [id number] - CBCD Performed By: #### L 100.0100, L501.9985, L501.5200, L501.9520, L500.4050, L500.4100 ####[facility] [address] [place], [address] MCV (RBC) [Entitic vol] 92.7 fL Normal 80-94 [facility] Comment on above: Order Comment: Order Date: 05/19/24Order Info: [id number] - CBCD Performed By: #### L 100.0100, L501.9985, L501.5200, L501.9520, L500.4050, L500.4100 ####[facility] [address] [place], [address] Monocytes/100 WBC (Bld) 7.5 % Normal 0-10 [facility] Comment on above: Order Comment: Order Date: 05/19/24Order Info: [id number] - CBCD Performed By: #### L 100.0100, L501.9985, L501.5200, L501.9520, L500.4050, L500.4100 ####[facility] [address] [place], [address] Neutrophils/100 WBC (Bld) 73.3 % High 47-70 [facility] Comment on above: Order Comment: Order Date: 05/19/24Order Info: [id number] - CBCD Performed By: #### L 100.0100, L501.9985, L501.5200, L501.9520, L500.4050, L500.4100 ####[facility] [address], [address] Nucleated RBC (Bld) [#/Vol] 0 10*3/uL Normal 0-5 [facility] Comment on above: Order Comment: Order Date: 05/19/24Order Info: [id number] - CBCD Performed By: #### L 100.0100, L501.9985, L501.5200, L501.9520, L500.4050, L500.4100 ####[facility] [address] [place], [address] Platelet mean volume (Bld) [Entitic vol] 10.8 fL Normal 6.2-12.0 [facility] Comment on above: Order Comment: Order Date: 05/19/24Order Info: [id number] - CBCD Performed By: #### L 100.0100, L501.9985, L501.5200, L501.9520, L500.4050, L500.4100 ####[facility] [address] [place], [address] Platelets (Bld) [#/Vol] 256 10*3/uL Normal 150-450 [facility] Comment on above: Order Comment: Order Date: 05/19/24Order Info: [id number] - CBCD Performed By: #### L 100.0100, L501.9985, L501.5200, L501.9520, L500.4050, L500.4100 ####[facility] [address] [place], [address] RBC (Bld) [#/Vol] 4.12 10*6/uL Low 4.6-6.2 [facility] Comment on above: Order Comment: Order Date: 05/19/24Order Info: [id number] - CBCD Performed By: #### L 100.0100, L501.9985, L501.5200, L501.9520, L500.4050, L500.4100 ####[facility] [address] [place], [address] RDW SD 43.1 fl Normal 35.1-43.9 [facility] Comment on above: Order Comment: Order Date: 05/19/24Order Info: [id number] - CBCD Performed By: #### L 100.0100, L501.9985, L501.5200, L501.9520, L500.4050, L500.4100 ####[facility] [address] [place], [address] WBC (Bld) [#/Vol] 5.5 10*3/uL Normal 4.4-11.0 [facility] Comment on above: Order Comment: Order Date: 05/19/24Order Info: [id number] - CBCD Performed By: #### L 100.0100, L501.9985, L501.5200, L501.9520, L500.4050, L500.4100 ####[facility] [address] [place], [place], [id number] Calculated very low density lipoprotein (VLDL) cholesterol measurementOrdered By: Davis Armstrong on 05-19-2024 Calculated very low density lipoprotein (VLDL) cholesterol measurement 10 mg/dL 5-40 [facility] VLDL Cholesterol 10 mg/dL 5-40 [facility] Carbon dioxide, total [Moles /volume] in Central venous bloodOrdered By: Davis Armstrong on 05-19-2024 CO2 [Moles/Vol] 19.7 mmol/L Low 21.0-32.0 [facility] Chloride assayOrdered By: Anuradha Armstrong on 05-19-2024 Chloride [Moles/Vol] 106 mmol/L 98-108 [facility] Comprehensive Metabolic Prof ilon 05-19-2024 Albumin [Mass/Vol] 4.1 g/dL Normal 3.4-4.8 [facility] Comment on above: Order Comment: Order Date: 05/19/24Order Info: [id number] - CMPOrder Info: [id number] - LIPIDOrder Info: - MGOrder Info: 3 - TSH Performed By: #### L 100.0100, L501.9985, L501.5200, L501.9520, L500.4050, L500.4100 ####[facility] [address] [place], [place], [id number] Albumin/Globulin [Mass ratio] 1.5 {ratio} Normal 0.9-2.4 [facility] Comment on above: Order Comment: Order Date: 05/19/24Order Info: [id number] - CMPOrder Info: [id number] - LIPIDOrder Info: - MGOrder Info: [id number] - TSH Performed By: #### L 100.0100, L501.9985, L501.5200, L501.9520, L500.4050, L500.4100 ####[facility] [address], [address] ALK PHOS 93 U/L Normal 40-129 [facility] Comment on above: Order Comment: Order Date: 05/19/24Order Info: [id number] - CMPOrder Info: [id number] - LIPIDOrder Info: [id number] - MGOrder Info: [id number] - TSH Performed By: #### L 100.0100, L501.9985, L501.5200, L501.9520, L500.4050, L500.4100 ####[facility] [address] [place], [address] ALT [Catalytic activity/Vol] 16 U/L Normal <=46 [facility] Comment on above: Order Comment: Order Date: 05/19/24Order Info: [id number] - CMPOrder Info: [id number] - LIPIDOrder Info: [id number] - MGOrder Info: [id number] - TSH Performed By: #### L 100.0100, L501.9985, L501.5200, L501.9520, L500.4050, L500.4100 ####[facility] [address] [place], [address] AST [Catalytic activity/Vol] 28 U/L Normal <=37 [facility] Comment on above: Order Comment: Order Date: 05/19/24Order Info: [id number] - CMPOrder Info: [id number] - LIPIDOrder Info: [id number] - MGOrder Info: [id number] - TSH Performed By: #### L 100.0100, L501.9985, L501.5200, L501.9520, L500.4050, L500.4100 ####[facility] [address] [place], [address] Bilirubin [Mass/Vol] 0.61 mg/dL Normal 0.00-1.30 [facility] Comment on above: Order Comment: Order Date: 05/19/24Order Info: [id number] - CMPOrder Info: [id number] - LIPIDOrder Info: [id number] - MGOrder Info: [id number] - TSH Performed By: #### L 100.0100, L501.9985, L501.5200, L501.9520, L500.4050, L500.4100 ####[facility] [address] [place], [address] BUN/CRE 25.9 RATIO High 10-20 [facility] Comment on above: Order Comment: Order Date: 05/19/24Order Info: [id number] - CMPOrder Info: [id number] - LIPIDOrder Info: [id number] - MGOrder Info: 3 - TSH Performed By: #### L 100.0100, L501.9985, L501.5200, L501.9520, L500.4050, L500.4100 ####[facility] [address] [place], [address] Calcium [Mass/Vol] 9.0 mg/dL Normal 7.6-11.0 [facility] Comment on above: Order Comment: Order Date: 05/19/24Order Info: [id number] - CMPOrder Info: [id number] - LIPIDOrder Info: - MGOrder Info: [id number] - TSH Performed By: #### L 100.0100, L501.9985, L501.5200, L501.9520, L500.4050, L500.4100 ####[facility] [address] [place], [address] Chloride [Moles/Vol] 106 mmol/L Normal 98-108 [facility] Comment on above: Order Comment: Order Date: 05/19/24Order Info: [id number] - CMPOrder Info: [id number] - LIPIDOrder Info: [id number] - MGOrder Info: [id number] - TSH Performed By: #### L 100.0100, L501.9985, L501.5200, L501.9520, L500.4050, L500.4100 ####[facility] [address] [place], [place], [id number] CO2 [Moles/Vol] 19.7 mmol/L Low 21.0-32.0 [facility] Comment on above: Order Comment: Order Date: 05/19/24Order Info: [id number] - CMPOrder Info: [id number] - LIPIDOrder Info: [id number] - MGOrder Info: [id number] - TSH Performed By: #### L 100.0100, L501.9985, L501.5200, L501.9520, L500.4050, L500.4100 ####[facility] [address] [place], [address] Creatinine [Mass/Vol] 0.69 mg/dL Low 0.70-1.20 [facility] Comment on above: Order Comment: Order Date: 05/19/24Order Info: 07-1 - CMPOrder Info: [id number] - LIPIDOrder Info: [id number] - MGOrder Info: [id number] - TSH Performed By: #### L 100.0100, L501.9985, L501.5200, L501.9520, L500.4050, L500.4100 ####[facility] [address] [place], [place], [id number] GAP 13 Normal 5-15 [facility] Comment on above: Order Comment: Order Date: 05/19/24Order Info: [id number] - CMPOrder Info: [id number] - LIPIDOrder Info: [id number] - MGOrder Info: [id number] - TSH Performed By: #### L 100.0100, L501.9985, L501.5200, L501.9520, L500.4050, L500.4100 ####[facility] [address] [place], [place], [address] GFR/1.73 sq M.predicted among non-blacks MDRD (S/P/Bld) [Vol rate/Area] 98 mL/min/{1.73_m2} Normal >60 [facility] Comment on above: Order Comment: Order Date: 05/19/24Order Info: [id number] - CMPOrder Info: [id number] - LIPIDOrder Info: [id number] - MGOrder Info: [id number] - TSH Result Comment: mL/m in/1.73m2 CKD-EPI Creatinine Equation (2020) Performed By: #### L 100.0100, L501.9985, L501.5200, L501.9520, L500.4050, L500.4100 ####[facility] [address] [place], [address] Globulin (S) [Mass/Vol] 2.8 g/dL Normal 2.2-4.2 [facility] Comment on above: Order Comment: Order Date: 05/19/24Order Info: [id number] - CMPOrder Info: - LIPIDOrder Info: - MGOrder Info: [id number] - TSH Performed By: #### L 100.0100, L501.9985, L501.5200, L501.9520, L500.4050, L500.4100 ####[facility] [address] [place], [address] Glucose [Mass/Vol] 89 mg/dL Normal 70-99 [facility] Comment on above: Order Comment: Order Date: 05/19/24Order Info: 07- - CMPOrder Info: - LIPIDOrder Info: - MGOrder Info: [id number] - TSH Performed By: #### L 100.0100, L501.9985, L501.5200, L501.9520, L500.4050, L500.4100 ####[facility] [address] [place], [address] Potassium [Moles/Vol] 3.9 mmol/L Normal 3.3-5.1 [facility] Comment on above: Order Comment: Order Date: 05/19/24Order Info: 86- - CMPOrder Info: - LIPIDOrder Info: [id number] - MGOrder Info: [id number] - TSH Performed By: #### L 100.0100, L501.9985, L501.5200, L501.9520, L500.4050, L500.4100 ####[facility] [address] [place], [place], [address] Sodium [Moles/Vol] 139 mmol/L Normal 133-145 [facility] Comment on above: Order Comment: Order Date: 05/19/24Order Info: 86-1 - CMPOrder Info: [id number] - LIPIDOrder Info: - MGOrder Info: [id number] - TSH Performed By: #### L 100.0100, L501.9985, L501.5200, L501.9520, L500.4050, L500.4100 ####[facility] [address] [place], [place], [id number] T PROT 6.8 g/dL Normal 5.9-8.4 [facility] Comment on above: Order Comment: Order Date: 05/19/24Order Info: [id number] - CMPOrder Info: - LIPIDOrder Info: - MGOrder Info: [id number] - TSH Performed By: #### L 100.0100, L501.9985, L501.5200, L501.9520, L500.4050, L500.4100 ####[facility] [address] [place], [place], [address] Urea nitrogen [Mass/Vol] 18 mg/dL Normal 4-19 [facility] Comment on above: Order Comment: Order Date: 05/19/24Order Info: [id number] - CMPOrder Info: [id number] - LIPIDOrder Info: - MGOrder Info: [id number] - TSH Performed By: #### L 100.0100, L501.9985, L501.5200, L501.9520, L500.4050, L500.4100 ####[facility] [address] [place], [address] Eosinophil percentageOrdered By: Davis Armstrong on 05-19-2024 Eosinophils/100 WBC (Bld) 2.2 % 0-5 [facility] Erythrocyte distribution wid th ratioOrdered By: Davis Armstrong on 05-19-2024 Erythrocyte distribution width (RBC) [Ratio] 12.7 % 11.6-14.6 [facility] Erythrocyte distribution wid th standard deviationOrdered By: Davis Armstrong on 05-19-2024 Erythrocyte distribution width (RBC) [Entitic vol] 43.1 fL 35.1-43.9 [facility] Erythrocyte distribution width (RBC) [Ratio] 43.1 fl 35.1-43.9 [facility] GFR/1.73 sq M.predicted nirmal g non-blacks MDRD (S/P/Bld) [Vol rate/Area]Ordered By: Davis Armstrong on 05-19-2024 Estimated GFR (MDRD) Non-Af Amer 98 >60 [facility] Comment on above: mL/min/1.73m2 CKD-EP I Creatinine Equation (2020) Glomerular filtration rate ( GFR) estimation/1.73 sq m using serum, plasma, or whole bOrdered By: Davis Armstrong on 05-19-2024 GFR/1.73 sq M.predicted among non-blacks MDRD (S/P/Bld) [Vol rate/Area] 98 mL/min/{1.73_m2} >60 [facility] Comment on above: mL/min/1.73m2 CKD-EP I Creatinine Equation (2020) Hematocrit Auto (Bld) [Volum e fraction]Ordered By: Davis Armstrong on 05-19-2024 Hematocrit (Bld) [Volume fraction] 38.2 % Low 40-54 [facility] Hemoglobin A1con 05-19-2024 HbA1c (Bld) [Mass fraction] 6.4 % Normal <=5.6 [facility] Comment on above: Order Comment: Order Date: 05/19/24Order Info: [id number] - A1C Performed By: #### L 100.0100, L501.9985, L501.5200, L501.9520, L500.4050, L500.4100 ####[facility] [address] [place], [address] Hemoglobin A1c percentageOrd ered By: Davis Armstrong on 05-19-2024 HbA1c (Bld) [Mass fraction] 6.4 % >5.7 [facility] Hemoglobin measurementOrdere d By: Davis Armstrong on 05-19-2024 Hemoglobin (Bld) [Mass/Vol] 12.7 g/dL Low 13.0-16.5 [facility] Immature granulocytes/100 WB C Auto (Bld)Ordered By: Davis Armstrong on 05-19-2024 Immature granulocytes/100 WBC (Bld) 0.400 % 0.0-0.9 [facility] Comment on above: IG% - Immature Granu locytes (promyelocytes, myelocytes and metamyelocytes) > 1% indicates that a LEFT SHIFT is Present. LDL calc ser/plasOrdered By: Davis Armstrong on 05-19-2024 Cholesterol in LDL [Mass/Vol] 61 mg/dL [facility] Comment on above: Cwffeosmpo=645-314 m g/dL & Higher Xnox=785 mg/dL or greater LDL Cholesterol, Calculated 61 mg/dL [facility] Comment on above: Yftyhueovj=261-101 m g/dL & Higher Dmkl=659 mg/dL or greater Laboratory - Chemistry and C hemistry - challengeOrdered By: Davis Armstrong on 05-19-2024 AST [Catalytic activity/Vol] 28 U/L <38 [facility] Lipid Profileon 05-19-2024 CHOL:HDL 2.32 Normal [facility] Comment on above: Order Comment: Order Date: 05/19/24Order Info: [id number] - CMPOrder Info: [id number] - LIPIDOrder Info: [id number] - MGOrder Info: [id number] - TSH Performed By: #### L 100.0100, L501.9985, L501.5200, L501.9520, L500.4050, L500.4100 ####[facility] [address] [place], [address] Cholesterol [Mass/Vol] 126 mg/dL Normal <=200 [facility] Comment on above: Order Comment: Order Date: 05/19/24Order Info: [id number] - CMPOrder Info: [id number] - LIPIDOrder Info: [id number] - MGOrder Info: 3 - TSH Result Comment: Chol esterol level, Desirable <200 mg/dL Borderline high cholesterol 200-239 mg/dL High cholesterol >=240 mg/dL Recommendations of the NCEP Adult Treatment Panel for the following risk-cutoff thresholds for the [place] population. Performed By: #### L 100.0100, L501.9985, L501.5200, L501.9520, L500.4050, L500.4100 ####[facility] [address] [place], [address] Cholesterol in HDL [Mass/Vol] 54 mg/dL Normal [facility] Comment on above: Order Comment: Order Date: 05/19/24Order Info: [id number] - CMPOrder Info: [id number] - LIPIDOrder Info: [id number] - MGOrder Info: 3 - TSH Result Comment: [place] Cholesterol Education Program (NCEP) guidelines: <40 mg/dL: Low HDL-cholesterol (major risk factor for CHD) >= 60 mg/dL: High HDL-cholesterol (negative risk factor for CHD) HDL-cholesterol is affected by a number of factors, e.g. smoking, exercise, hormones, sex and age. Performed By: #### L 100.0100, L501.9985, L501.5200, L501.9520, L500.4050, L500.4100 ####[facility] [address] [place], [place], [address](586) Cholesterol in LDL [Mass/Vol] 61 mg/dL Normal [facility] Comment on above: Order Comment: Order Date: 05/19/24Order Info: [id number] - CMPOrder Info: [id number] - LIPIDOrder Info: [id number] - MGOrder Info: [id number] - TSH Result Comment: Bord uufakj=267-255 mg/dL Higher Xfyh=901 mg/dL or greater Performed By: #### L 100.0100, L501.9985, L501.5200, L501.9520, L500.4050, L500.4100 ####[facility] [address] [place], [address] Cholesterol in VLDL [Mass/Vol] 10 mg/dL Normal 5-40 [facility] Comment on above: Order Comment: Order Date: 05/19/24Order Info: [id number] - CMPOrder Info: [id number] - LIPIDOrder Info: [id number] - MGOrder Info: [id number] - TSH Performed By: #### L 100.0100, L501.9985, L501.5200, L501.9520, L500.4050, L500.4100 ####[facility] [address] [place], [address] Triglyceride [Mass/Vol] 52 mg/dL Normal [facility] Comment on above: Order Comment: Order Date: 05/19/24Order Info: [id number] - CMPOrder Info: [id number] - LIPIDOrder Info: [id number] - MGOrder Info: [id number] - TSH Result Comment: The drugs N-Acetylcysteine and Metamizole may falsely depress this assay. Normal range: <150 mg/dL Borderline High: 150-199 mg/dL High: 200-499 mg/dL Very High: >500 mg/dL Performed By: #### L 100.0100, L501.9985, L501.5200, L501.9520, L500.4050, L500.4100 ####[facility] [address] [address] [place], [address] Lymphocytes Auto (Unsp spec) [#/Vol]Ordered By: Davis Armstrong on 05-19-2024 Lymphocytes (Bld) [#/Vol] 0.85 10*3/uL 0.83-4.51 [facility] Lymphocytes/100 WBC Auto (Un sp spec)Ordered By: Davis Armstrong on 05-19-2024 Lymphocytes/100 WBC (Bld) 15.5 % Low 19-41 [facility] MCV (mean corpuscular volume ) determinationOrdered By: Davis Armstrong on 05-19-2024 MCV (RBC) [Entitic vol] 92.7 fL 80-94 [facility] Magnesiumon 05-19-2024 Magnesium [Mass/Vol] 1.9 mg/dL Normal 1.5-2.2 [facility] Comment on above: Order Comment: Order Date: 05/19/24Order Info: [id number] - CMPOrder Info: [id number] - LIPIDOrder Info: [id number] - MGOrder Info: [id number] - TSH Performed By: #### L 100.0100, L501.9985, L501.5200, L501.9520, L500.4050, L500.4100 ####[facility] [address] [place], [address] Magnesium (Unsp spec) [Mass/ Vol]Ordered By: Davis Armstrong on 05-19-2024 Magnesium [Mass/Vol] 1.9 mg/dL 1.5-2.2 [facility] Magnesium measurement (mass/ volume)Ordered By: Davis Armstrong on 05-19-2024 Magnesium (Unsp spec) [Mass/Vol] 1.9 mg/dL 1.5-2.2 [facility] Mean corpuscular hemoglobin (MCH) determinationOrdered By: Davis Armstrong on 05-19-2024 MCH (RBC) [Entitic mass] 30.8 pg 27.0-32.0 [facility] Mean corpuscular hemoglobin concentration (MCHC) determinationOrdered By: Davis Armstrong on 05-19-2024 MCHC (RBC) [Mass/Vol] 33.2 g/dL 32-36 [facility] Mean platelet volume determi nationOrdered By: Davis Armstrong on 05-19-2024 Platelet mean volume (Bld) [Entitic vol] 10.8 fL 6.2-12.0 [facility] Microalbumin,Random Urineon 05-19-2024 MICROALBUMIN,UR 28.6 mg/L Normal NO RANGE EST. [facility] Comment on above: Performed By: #### L 502.0500 ####[facility] [address] [place], [address] Monocyte percentageOrdered B y: Davis Armstrong on 05-19-2024 Monocytes/100 WBC (Bld) 7.5 % 0-10 [facility] Neutrophil percentageOrdered By: Davis Armstrong on 05-19-2024 Neutrophils/100 WBC (Bld) 73.3 % High 47-70 [facility] Nucleated red blood cell per centageOrdered By: Davis Armstrong on 05-19-2024 Nucleated RBC/100 WBC (Bld) [Ratio] 0 % 0-5 [facility] Platelet countOrdered By: Anuradha Armstrong on 05-19-2024 Platelets (Bld) [#/Vol] 256 10*3/uL 150-450 [facility] Potassium (Unsp spec) [Mass/ Vol]Ordered By: Davis Armstrong on 05-19-2024 Potassium [Moles/Vol] 3.9 mmol/L 3.3-5.1 [facility] Potassium measurement (mass/ volume)Ordered By: Davis Armstrong on 05-19-2024 Potassium (Unsp spec) [Mass/Vol] 3.9 mmol/L 3.3-5.1 [facility] RBC Auto (Bld) [#/Vol]Ordere d By: Davis Armstrong on 05-19-2024 RBC (Bld) [#/Vol] 4.12 10*6/uL Low 4.6-6.2 [facility] Screening total cholesterol/ high density lipoprotein (HDL) cholesterol ratioOrdered By: Davis Armstrong on 05-19-2024 Cholesterol.total/Choles terol in HDL [Mass ratio] 2.32 {ratio} [facility] Serum creatinine measurement (mass/volume)Ordered By: Davis Armstrong on 05-19-2024 Creatinine [Mass/Vol] 0.69 mg/dL Low 0.70-1.20 [facility] Serum globulin measurementOr dered By: Davis Armstrong on 05-19-2024 Globulin (S) [Mass/Vol] 2.8 g/dL 2.2-4.2 [facility] Serum glucose measurement (m ass/volume)Ordered By: Davis Armstrong on 05-19-2024 Glucose [Mass/Vol] 89 mg/dL 70-99 [facility] Serum or plasma alanine sands otransferase (ALT) measurementOrdered By: Davis Armstrong on 05-19-2024 ALT [Catalytic activity/Vol] 16 U/L <47 [facility] Serum or plasma albumin ash urement (mass/volume)Ordered By: Davis Armstrong on 05-19-2024 Albumin [Mass/Vol] 4.1 g/dL 3.4-4.8 [facility] Serum or plasma albumin/glob ulin mass ratioOrdered By: Davis Armstrong on 05-19-2024 Albumin/Globulin [Mass ratio] 1.5 {ratio} 0.9-2.4 [facility] Serum or plasma alkaline katty sphatase measurementOrdered By: Davis Armstrong on 05-19-2024 ALP [Catalytic activity/Vol] 93 U/L 40-129 [facility] Serum or plasma calcium ash urement (mass/volume)Ordered By: Davis Armstrong on 05-19-2024 Calcium [Mass/Vol] 9.0 mg/dL 7.6-11.0 [facility] Serum or plasma cholesterol in HDL measurement (mass/volume)Ordered By: Davis Armstrong on 05-19-2024 Cholesterol in HDL [Mass/Vol] 54 mg/dL >40 [facility] Comment on above: National Cholesterol Education Program (NCEP) guidelines:<40 mg/dL: Low HDL-cholesterol (major risk factor for CHD)>= 60 mg/dL: High HDL-cholesterol (negative risk factor for CHD)HDL-cholesterol is affected by a number of factors, e.g. smoking, exercise, hormones, sex and age. Serum or plasma cholesterol measurement (mass/volume)Ordered By: Davis Armstrong on 05-19-2024 Cholesterol [Mass/Vol] 126 mg/dL <201 [facility] Comment on above: Cholesterol level, D esirable <200 mg/dLBorderline high cholesterol 200-239 mg/dLHigh cholesterol >=240 mg/dLRecommendations of the NCEP Adult Treatment Panel for the following risk-cutoff thresholds for the [place] population. Serum or plasma urea nitroge n measurement (mass/volume)Ordered By: Davis Armstrong on 05-19-2024 Urea nitrogen [Mass/Vol] 18 mg/dL 4-19 [facility] Sodium levelOrdered By: Davis Armstrong on 05-19-2024 Sodium [Moles/Vol] 139 mmol/L 133-145 [facility] TSH DL <= 0.005 mIU/L QnOrde red By: Davis Armstrong on 05-19-2024 Thyroid Stimulating Hormone (TSH) 2.270 uIU/mL 0.300-4.200 [facility] TSH Qn 2.270 uIU/mL 0.300-4.200 [facility] Thyroid Stim Hormone (TSH)on 05-19-2024 TSH 2.270 uIU/mL Normal 0.300-4.200 [facility] Comment on above: Order Comment: Order Date: 05/19/24Order Info: [id number] - CMPOrder Info: [id number] - LIPIDOrder Info: [id number] - MGOrder Info: [id number] - TSH Performed By: #### L 100.0100, L501.9985, L501.5200, L501.9520, L500.4050, L500.4100 ####[facility] [address] [facility]. [place], [place], [id number] Total proteinOrdered By: Jarek Armstrong on 05-19-2024 Protein [Mass/Vol] 6.8 g/dL 5.9-8.4 [facility] Triglycerides measurementOrd ered By: Davis Armstrong on 05-19-2024 Triglyceride [Mass/Vol] 52 mg/dL <199 [facility] Comment on above: The drugs N-Acetylcy steine and Metamizole may falsely depress this assay. Normal range: <150 mg/dLBorderline High: 150-199 mg/dLHigh: 200-499 mg/dLVery High: >500 mg/dL Urine albumin measurement wi detection limit of 20 mg/L or less (mass/volume)Ordered By: Davis Armstrong on 05-19-2024 Albumin DL <= 20 mg/L (U) [Mass/Vol] 28.6 mg/L NO RANGE EST. [facility] White blood cell (WBC) count Ordered By: Davis Armstrong on 05-19-2024 WBC (Bld) [#/Vol] 5.5 10*3/uL 4.4-11.0 [facility] PSA,Total - Annual Screenon 01-14-2024 PSA,TOT SCREEN 1.40 ng/mL Normal 0.00-4.00 [facility] Comment on above: Order Comment: Order Date: 01/14/24Order Info: [id number] - PSA Result Comment: This test was performed using the TPSA assay method for the [employer] chemistry system. Values obtained with different assay methods cannot be used interchangably. When changing PSA assays in the course of monitoring a patient, additional sequential testing should be carried out to confirm baseline values. Performed By: #### L 501.9910 ####[facility] [address], [address] CBC W/Diff, Automatedon 08-16 Absolute Lymph 0.86 X10 3/uL Normal 0.83-4.51 [facility] Comment on above: Order Comment: Order Date: 05/09/23 Order Info: [id number] - CBCD Performed By: #### L 500.4050, L501.9985, L500.4100, L501.5200, L100.0100 #### [facility] [address] [place], [address] Absolute Neut 3.8 X10 3/uL Normal 2.0-7.7 [facility] Comment on above: Order Comment: Order Date: 05/09/23 Order Info: [id number] - CBCD Performed By: #### L 500.4050, L501.9985, L500.4100, L501.5200, L100.0100 #### [facility] [address] [place], [address] Basophils/100 WBC (Bld) 0.9 % Normal 0-1 [facility] Comment on above: Order Comment: Order Date: 05/09/23 Order Info: [id number] - CBCD Performed By: #### L 500.4050, L501.9985, L500.4100, L501.5200, L100.0100 #### [facility] [address] [place], [address] Eosinophils/100 WBC (Bld) 3.6 % Normal 0-5 [facility] Comment on above: Order Comment: Order Date: 05/09/23 Order Info: [id number] - CBCD Performed By: #### L 500.4050, L501.9985, L500.4100, L501.5200, L100.0100 #### [facility] [address] [place], [address] Erythrocyte distribution width (RBC) [Ratio] 12.4 % Normal 11.6-14.6 [facility] Comment on above: Order Comment: Order Date: 05/09/23 Order Info: [id number] - CBCD Performed By: #### L 500.4050, L501.9985, L500.4100, L501.5200, L100.0100 #### [facility] [address] [place], [address] Hematocrit (Bld) [Volume fraction] 40.3 % Normal 40-54 [facility] Comment on above: Order Comment: Order Date: 05/09/23 Order Info: [id number] - CBCD Performed By: #### L 500.4050, L501.9985, L500.4100, L501.5200, L100.0100 #### [facility] [address] [place], [address] Hemoglobin (Bld) [Mass/Vol] 13.4 g/dL Normal 13.0-16.5 [facility] Comment on above: Order Comment: Order Date: 05/09/23 Order Info: [id number] - CBCD Performed By: #### L 500.4050, L501.9985, L500.4100, L501.5200, L100.0100 #### [facility] [address] [place], [address] IG% 0.400 Normal 0.0-0.9 [facility] Comment on above: Order Comment: Order Date: 05/09/23 Order Info: [id number] - CBCD Result Comment: IG% - Immature Granulocytes (promyelocytes, myelocytes and metamyelocytes) > 1% indicates that a LEFT SHIFT is Present. Performed By: #### L 500.4050, L501.9985, L500.4100, L501.5200, L100.0100 #### [facility] [address] [place], [address] Lymphocytes/100 WBC (Bld) 16.1 % Low 19-41 [facility] Comment on above: Order Comment: Order Date: 05/09/23 Order Info: [id number] - CBCD Performed By: #### L 500.4050, L501.9985, L500.4100, L501.5200, L100.0100 #### [facility] [address] [place], [address] MCH (RBC) [Entitic mass] 30.4 pg Normal 27.0-32.0 [facility] Comment on above: Order Comment: Order Date: 05/09/23 Order Info: [id number] - CBCD Performed By: #### L 500.4050, L501.9985, L500.4100, L501.5200, L100.0100 #### [facility] [address] [place], [address] MCHC (RBC) [Mass/Vol] 33.3 g/dL Normal 32-36 [facility] Comment on above: Order Comment: Order Date: 05/09/23 Order Info: [id number] - CBCD Performed By: #### L 500.4050, L501.9985, L500.4100, L501.5200, L100.0100 #### [facility] [address] [place], [address] MCV (RBC) [Entitic vol] 91.4 fL Normal 80-94 [facility] Comment on above: Order Comment: Order Date: 05/09/23 Order Info: [id number] - CBCD Performed By: #### L 500.4050, L501.9985, L500.4100, L501.5200, L100.0100 #### [facility] [address] [place], [address] Monocytes/100 WBC (Bld) 8.4 % Normal 0-10 [facility] Comment on above: Order Comment: Order Date: 05/09/23 Order Info: [id number] - CBCD Performed By: #### L 500.4050, L501.9985, L500.4100, L501.5200, L100.0100 #### [facility] [address] [place], [address] Neutrophils/100 WBC (Bld) 70.6 % High 47-70 [facility] Comment on above: Order Comment: Order Date: 05/09/23 Order Info: [id number] - CBCD Performed By: #### L 500.4050, L501.9985, L500.4100, L501.5200, L100.0100 #### [facility] [address] [place], [address] Nucleated RBC (Bld) [#/Vol] 0 10*3/uL Normal 0-5 [facility] Comment on above: Order Comment: Order Date: 05/09/23 Order Info: [id number] - CBCD Performed By: #### L 500.4050, L501.9985, L500.4100, L501.5200, L100.0100 #### [facility] [address] [place], [address] Platelet mean volume (Bld) [Entitic vol] 10.4 fL Normal 6.2-12.0 [facility] Comment on above: Order Comment: Order Date: 05/09/23 Order Info: [id number] - CBCD Performed By: #### L 500.4050, L501.9985, L500.4100, L501.5200, L100.0100 #### [facility] [address] [place], [address] Platelets (Bld) [#/Vol] 245 10*3/uL Normal 150-450 [facility] Comment on above: Order Comment: Order Date: 05/09/23 Order Info: [id number] - CBCD Performed By: #### L 500.4050, L501.9985, L500.4100, L501.5200, L100.0100 #### [facility] [address] [place], [address] RBC (Bld) [#/Vol] 4.41 10*6/uL Low 4.6-6.2 [facility] Comment on above: Order Comment: Order Date: 05/09/23 Order Info: [id number] - CBCD Performed By: #### L 500.4050, L501.9985, L500.4100, L501.5200, L100.0100 #### [facility] [address] [place], [address] RDW SD 41.7 fl Normal 35.1-43.9 [facility] Comment on above: Order Comment: Order Date: 05/09/23 Order Info: [id number] - CBCD Performed By: #### L 500.4050, L501.9985, L500.4100, L501.5200, L100.0100 #### [facility] [address] [place], [address] WBC (Bld) [#/Vol] 5.3 10*3/uL Normal 4.4-11.0 [facility] Comment on above: Order Comment: Order Date: 05/09/23 Order Info: [id number] - CBCD Performed By: #### L 500.4050, L501.9985, L500.4100, L501.5200, L100.0100 #### [facility] [address] [place], [address] Comprehensive Metabolic Prof ilon 09-10-2023 Albumin [Mass/Vol] 3.7 g/dL Normal 3.2-5.0 [facility] Comment on above: Order Comment: Order Date: 05/09/23 Order Info: [id number] - CMP Order Info: [id number] - LIPID Order Info: [id number] - MG Performed By: #### L 500.4050, L501.9985, L500.4100, L501.5200, L100.0100 #### [facility] [address] [place], [address] Albumin/Globulin [Mass ratio] 1.1 {ratio} Normal 0.9-2.4 [facility] Comment on above: Order Comment: Order Date: 05/09/23 Order Info: [id number] - CMP Order Info: [id number] - LIPID Order Info: [id number] - MG Performed By: #### L 500.4050, L501.9985, L500.4100, L501.5200, L100.0100 #### [facility] [address] [place], [address] ALK P 85 U/L Normal 45-117 [facility] Comment on above: Order Comment: Order Date: 05/09/23 Order Info: [id number] - CMP Order Info: [id number] - LIPID Order Info: [id number] - MG Performed By: #### L 500.4050, L501.9985, L500.4100, L501.5200, L100.0100 #### [facility] [address] [place], [address] ALT [Catalytic activity/Vol] 18 U/L Normal 16-61 [facility] Comment on above: Order Comment: Order Date: 05/09/23 Order Info: [id number] - CMP Order Info: [id number] - LIPID Order Info: [id number] - MG Performed By: #### L 500.4050, L501.9985, L500.4100, L501.5200, L100.0100 #### [facility] [address] [place], [address] AST [Catalytic activity/Vol] 19 U/L Normal 15-37 [facility] Comment on above: Order Comment: Order Date: 05/09/23 Order Info: [id number] - CMP Order Info: - LIPID Order Info: [id number] - MG Performed By: #### L 500.4050, L501.9985, L500.4100, L501.5200, L100.0100 #### [facility] [address] [place], [address] Bilirubin [Mass/Vol] 1.00 mg/dL Normal 0.20-1.00 [facility] Comment on above: Order Comment: Order Date: 05/09/23 Order Info: [id number] - CMP Order Info: - LIPID Order Info: [id number] - MG Result Comment: For patients on eltrombopag therapy, use of Dimension [place] TBIL is not recommended. Performed By: #### L 500.4050, L501.9985, L500.4100, L501.5200, L100.0100 #### [facility] [address] [place], [address] BUN/CRE 23.3 RATIO High 10-20 [facility] Comment on above: Order Comment: Order Date: 05/09/23 Order Info: [id number] - CMP Order Info: [id number] - LIPID Order Info: [id number] - MG Performed By: #### L 500.4050, L501.9985, L500.4100, L501.5200, L100.0100 #### [facility] [address] [place], [address] CA,Total 9.1 mg/dL Normal 8.5-10.1 [facility] Comment on above: Order Comment: Order Date: 05/09/23 Order Info: [id number] - CMP Order Info: [id number] - LIPID Order Info: [id number] - MG Performed By: #### L 500.4050, L501.9985, L500.4100, L501.5200, L100.0100 #### [facility] [address] [place], [address] Chloride [Moles/Vol] 108 mmol/L High 98-107 [facility] Comment on above: Order Comment: Order Date: 05/09/23 Order Info: [id number] - CMP Order Info: [id number] - LIPID Order Info: [id number] - MG Performed By: #### L 500.4050, L501.9985, L500.4100, L501.5200, L100.0100 #### [facility] [address] [place], [address] CO2 [Moles/Vol] 23.0 mmol/L Normal 21.0-32.0 [facility] Comment on above: Order Comment: Order Date: 05/09/23 Order Info: [id number] - CMP Order Info: [id number] - LIPID Order Info: [id number] - MG Performed By: #### L 500.4050, L501.9985, L500.4100, L501.5200, L100.0100 #### [facility] [address] [place], [address] Creatinine [Mass/Vol] 0.86 mg/dL Normal 0.70-1.30 [facility] Comment on above: Order Comment: Order Date: 05/09/23 Order Info: [id number] - CMP Order Info: [id number] - LIPID Order Info: [id number] - MG Result Comment: The validity of the calculated GFR GFRAA in patients over 70 years has not been determined. Clinical correlation is essential. Performed By: #### L 500.4050, L501.9985, L500.4100, L501.5200, L100.0100 #### [facility] [address] [place], [address] EST GFR - AA 113 mL/min Normal >60 [facility] Comment on above: Order Comment: Order Date: 05/09/23 Order Info: [id number] - CMP Order Info: [id number] - LIPID Order Info: [id number] - MG Result Comment: Afri can Thai GFR Calc Performed By: #### L 500.4050, L501.9985, L500.4100, L501.5200, L100.0100 #### [facility] [address] [place], [address] GAP 7 Normal 5-15 [facility] Comment on above: Order Comment: Order Date: 05/09/23 Order Info: [id number] - CMP Order Info: [id number] - LIPID Order Info: [id number] - MG Performed By: #### L 500.4050, L501.9985, L500.4100, L501.5200, L100.0100 #### [facility] [address] [place], [address] GFR/1.73 sq M.predicted among non-blacks MDRD (S/P/Bld) [Vol rate/Area] 93 mL/min/{1.73_m2} Normal >60 [facility] Comment on above: Order Comment: Order Date: 05/09/23 Order Info: [id number] - CMP Order Info: [id number] - LIPID Order Info: [id number] - MG Result Comment: Non- GFR Calc Performed By: #### L 500.4050, L501.9985, L500.4100, L501.5200, L100.0100 #### [facility] [address] [place], [address] Globulin (S) [Mass/Vol] 3.5 g/dL Normal 2.2-4.2 [facility] Comment on above: Order Comment: Order Date: 05/09/23 Order Info: [id number] - CMP Order Info: [id number] - LIPID Order Info: [id number] - MG Performed By: #### L 500.4050, L501.9985, L500.4100, L501.5200, L100.0100 #### [facility] [address] [place], [address] Glucose [Mass/Vol] 105 mg/dL Normal 74-106 [facility] Comment on above: Order Comment: Order Date: 05/09/23 Order Info: [id number] - CMP Order Info: [id number] - LIPID Order Info: [id number] - MG Result Comment: Fast ing Glucose result from 100 to 125 mg/dL suggests IMPAIRED HOMEOSTASIS per A.D.A. criteria. Performed By: #### L 500.4050, L501.9985, L500.4100, L501.5200, L100.0100 #### [facility] [address] [place], [address] Potassium [Moles/Vol] 3.8 mmol/L Normal 3.5-5.1 [facility] Comment on above: Order Comment: Order Date: 05/09/23 Order Info: [id number] - CMP Order Info: [id number] - LIPID Order Info: [id number] - MG Performed By: #### L 500.4050, L501.9985, L500.4100, L501.5200, L100.0100 #### [facility] [address] [place], [address] Sodium [Moles/Vol] 138 mmol/L Normal 136-145 [facility] Comment on above: Order Comment: Order Date: 05/09/23 Order Info: [id number] - CMP Order Info: [id number] - LIPID Order Info: [id number] - MG Performed By: #### L 500.4050, L501.9985, L500.4100, L501.5200, L100.0100 #### [facility] [address] [place], [address] T PROT 7.2 g/dL Normal 6.4-8.2 [facility] Comment on above: Order Comment: Order Date: 05/09/23 Order Info: [id number] - CMP Order Info: [id number] - LIPID Order Info: [id number] - MG Performed By: #### L 500.4050, L501.9985, L500.4100, L501.5200, L100.0100 #### [facility] [address] [place], [address] Urea nitrogen [Mass/Vol] 20 mg/dL High 7-18 [facility] Comment on above: Order Comment: Order Date: 05/09/23 Order Info: [id number] - CMP Order Info: [id number] - LIPID Order Info: [id number] - MG Performed By: #### L 500.4050, L501.9985, L500.4100, L501.5200, L100.0100 #### [facility] [address] [place], [address] Hemoglobin A1con 09-10-2023 HbA1c (Bld) [Mass fraction] 6.0 % High 3.8-5.6 [facility] Comment on above: Order Comment: Order Date: 05/09/23 Order Info: [id number] - A1C Result Comment: Norm al < 5.7 % Prediabetic 5.7 - 6.4 % Diabetic >or= 6.5 % Please note range changes. Performed By: #### L 500.4050, L501.9985, L500.4100, L501.5200, L100.0100 #### [facility] [address] [place], [address] Lipid Profileon 09-10-2023 Cholesterol [Mass/Vol] 148 mg/dL Normal 200 [facility] Comment on above: Order Comment: Order Date: 05/09/23 Order Info: [id number] - CMP Order Info: [id number] - LIPID Order Info: [id number] - MG Result Comment: <200 mg/dL Desirable 200-240 mg/dL Borderline >240 mg/dL High Risk Performed By: #### L 500.4050, L501.9985, L500.4100, L501.5200, L100.0100 #### [facility] [address] [place], [address] Cholesterol in HDL [Mass/Vol] 60 mg/dL Normal [facility] Comment on above: Order Comment: Order Date: 05/09/23 Order Info: [id number] - CMP Order Info: [id number] - LIPID Order Info: [id number] - MG Result Comment: The drugs N-Acetylcysteine and Metamizole may falsely depress this assay. Reference Range HDL <40 mg/dL Low HDL Cholesterol HDL >or= 60 mg/dL High HDL Cholesterol Performed By: #### L 500.4050, L501.9985, L500.4100, L501.5200, L100.0100 #### [facility] [address] [place], [address] Cholesterol in LDL [Mass/Vol] 74 mg/dL Normal 0-130 [facility] Comment on above: Order Comment: Order Date: 05/09/23 Order Info: [id number] - CMP Order Info: [id number] - LIPID Order Info: [id number] - MG Performed By: #### L 500.4050, L501.9985, L500.4100, L501.5200, L100.0100 #### [facility] [address] [place], [address] Cholesterol in VLDL [Mass/Vol] 14 mg/dL Normal 5-40 [facility] Comment on above: Order Comment: Order Date: 05/09/23 Order Info: [id number] - CMP Order Info: [id number] - LIPID Order Info: [id number] - MG Performed By: #### L 500.4050, L501.9985, L500.4100, L501.5200, L100.0100 #### [facility] [address] [place], [address] Triglyceride [Mass/Vol] 68 mg/dL Normal [facility] Comment on above: Order Comment: Order Date: 05/09/23 Order Info: [id number] - CMP Order Info: [id number] - LIPID Order Info: [id number] - MG Result Comment: The drugs N-Acetylcysteine and Metamizole may falsely depress this assay. Serum Triglycerides Reference Interval Normal <150 mg/dL Borderline high 150 - 199 mg/dL High 200 - 499 mg/dL Very High > or = 500 mg/dL Performed By: #### L 500.4050, L501.9985, L500.4100, L501.5200, L100.0100 #### [facility] [address] [place], [address] Magnesiumon 09-10-2023 Magnesium [Mass/Vol] 2.1 mg/dL Normal 1.6-2.6 [facility] Comment on above: Order Comment: Order Date: 05/09/23 Order Info: [id number] - CMP Order Info: [id number] - LIPID Order Info: [id number] - MG Performed By: #### L 500.4050, L501.9985, L500.4100, L501.5200, L100.0100 #### [facility] [address] [place], [address] Urinalysis, Completeon 09-09 BACTERIA 0 SEEN Normal None Seen [facility] Comment on above: Order Comment: CLEAN CATCH Performed By: #### L 400.0001 ####[facility] [id number] [place], [address] EPI,SQUAMOUS 0 SEEN Normal 0-5 [facility] Comment on above: Order Comment: CLEAN CATCH Performed By: #### L 400.0001 ####[facility] [id number] [place], [address] Mucus Ql (Urine sed) 0 SEEN Normal [facility] Comment on above: Order Comment: CLEAN CATCH Performed By: #### L 400.0001 ####[facility] [id number], [address] RBC 0 SEEN Normal 0-5 [facility] Comment on above: Order Comment: CLEAN CATCH Performed By: #### L 400.0001 ####[facility] [id number], [address] WBC 0 SEEN Normal 0-5 [facility] Comment on above: Order Comment: CLEAN CATCH Performed By: #### L 400.0001 ####[facility] [id number] [place], [place], [id number] Absolute lymphocyte countOrd ered By: Davis Armstrong on 05-08-2023 Lymphocytes Auto (Unsp spec) [#/Vol] 0.83 10*3/uL 0.83-4.51 [facility] Automated lymphocyte count a s percentage of total leukocytesOrdered By: Davis Armstrong on 05-08-2023 Lymphocytes/100 WBC Auto (Unsp spec) 10.3 % 19-41 [facility] Basophil percentageOrdered B y: Davis Armstrong on 05-08-2023 Basophils/100 WBC (Bld) 0.7 % 0-1 [facility] Bilirubin [Mass/Vol] 1.10 mg/dL 0.20-1.00 [facility] Comment on above: For patients on eltr ombopag therapy, use of Dimension [place] TBIL is not recommended. Chloride [Moles/Vol] 109 mmol/L 98-107 [facility] Cholesterol [Mass/Vol] 139 mg/dL <200 [facility] Comment on above: <200 mg/dL Desirable 200-240 mg/dL Borderline >240 mg/dL High Risk Eosinophils/100 WBC (Bld) 1.1 % 0-5 [facility] Glucose [Mass/Vol] 111 mg/dL 74-106 [facility] Comment on above: Fasting Glucose resu lt from 100 to 125 mg/dL suggests IMPAIRED HOMEOSTASIS per A.D.A. criteria. Hemoglobin (Bld) [Mass/Vol] 13.9 g/dL 13.0-16.5 [facility] Monocytes/100 WBC (Bld) 8.3 % 0-10 [facility] Neutrophils (Bld) [#/Vol] 6.4 10*3/uL 2.0-7.7 [facility] Neutrophils/100 WBC (Bld) 79.2 % 47-70 [facility] Potassium [Moles/Vol] 3.8 mmol/L 3.5-5.1 [facility] Protein [Mass/Vol] 7.3 g/dL 6.4-8.2 [facility] Sodium [Moles/Vol] 136 mmol/L 136-145 [facility] Triglyceride [Mass/Vol] 93 mg/dL <199 [facility] Comment on above: The drugs N-Acetylcy steine and Metamizole may falsely depress this assay.Serum Triglycerides Reference Interval Normal <150 mg/dL Borderline high 150 - 199 mg/dL High 200 - 499 mg/dL Very High > or = 500 mg/dL WBC (Bld) [#/Vol] 8.1 10*3/uL 4.4-11.0 [facility] Bilirubin Test strip Ql (U)O rdered By: Davis Armstrong on 05-08-2023 Bilirubin Ql (U) Negative Negative [facility] Determination of erythrocyte mean corpuscular volume (MCV)Ordered By: Davis Armstrong on 05-08-2023 MCV (RBC) [Entitic vol] 91.5 fL 80-94 [facility] Erythrocyte distribution wid th ratioOrdered By: Davis Armstrong on 05-08-2023 Erythrocyte distribution width (RBC) [Ratio] 12.9 % 11.6-14.6 [facility] Erythrocyte distribution wid th standard deviationOrdered By: Davis Armstrong on 05-08-2023 Erythrocyte distribution width (RBC) [Entitic vol] 43.3 fL 35.1-43.9 [facility] Hematocrit Auto (Bld) [Volum e fraction]Ordered By: Davis Armstrong on 05-08-2023 Hematocrit (Bld) [Volume fraction] 41.0 % 40-54 [facility] Immature granulocytes/100 WB C Auto (Bld)Ordered By: Davis Armstrong on 05-08-2023 Immature granulocytes/100 WBC (Bld) 0.400 % 0.0-0.9 [facility] Comment on above: IG% - Immature Granu locytes (promyelocytes, myelocytes and metamyelocytes) > 1% indicates that a LEFT SHIFT is Present. Ketones Test strip Ql (U)Ord ered By: Davis Armstrong on 05-08-2023 Ketones Ql (U) Negative Negative [facility] - Chemistry and C hemistry - challengeOrdered By: Davis Armstrong on 05-08-2023 Albumin/Globulin [Mass ratio] 1.1 {ratio} 0.9-2.4 [facility] ALP [Catalytic activity/Vol] 99 U/L 45-117 [facility] ALT [Catalytic activity/Vol] 18 U/L 16-61 [facility] Cholesterol in HDL [Mass/Vol] 58 mg/dL >40 [facility] Comment on above: The drugs N-Acetylcy steine and Metamizole may falsely depress this assay. Reference Range HDL <40 mg/dL Low HDL Cholesterol HDL >or= 60 mg/dL High HDL Cholesterol Cholesterol in LDL [Mass/Vol] 62 mg/dL 0-130 [facility] CO2 [Moles/Vol] 24.0 mmol/L 21.0-32.0 [facility] Globulin (S) [Mass/Vol] 3.4 g/dL 2.2-4.2 [facility] Magnesium [Mass/Vol] 2.0 mg/dL 1.6-2.6 [facility] Urea nitrogen/Creatinine [Mass ratio] 26.6 mg/mg 10-20 [facility] - Hematology and Cell countsOrdered By: Davis Armstrong on 05-08-2023 MCH (RBC) [Entitic mass] 31.0 pg 27.0-32.0 [facility] MCHC (RBC) [Mass/Vol] 33.9 g/dL 32-36 [facility] Nucleated RBC/100 WBC (Bld) [Ratio] 0 % 0-5 [facility] Platelet mean volume (Bld) [Entitic vol] 9.9 fL 6.2-12.0 [facility] Platelets (Bld) [#/Vol] 265 10*3/uL 150-450 [facility] Nitrite Test strip Ql (U)Ord ered By: Davis Armstrong on 05-08-2023 Nitrite Ql (U) Negative Negative [facility] No Panel InformationOrdered By: Davis Armstrong on 05-08-2023 Estimated GFR (MDRD) Amer 139 mL/min >60 [facility] Comment on above: GFR Calc Estimated GFR (MDRD) Non-Af Amer 115 mL/min >60 [facility] Comment on above: Non- GFR Calc VLDL Cholesterol 19 mg/dL 5-40 [facility] Protein Test strip Ql (U)Ord ered By: Davis Armstrong on 05-08-2023 Protein Ql (U) 15 mg/dl Negative [facility] RBC Auto (Bld) [#/Vol]Ordere d By: Davis Armstrong on 05-08-2023 RBC (Bld) [#/Vol] 4.48 10*6/uL 4.6-6.2 [facility] Serum or plasma calcium ash urement (mass/volume)Ordered By: Davis Armstrong on 05-08-2023 Calcium [Mass/Vol] 9.1 mg/dL 8.5-10.1 [facility] Serum or plasma creatinine m easurement (mass/volume)Ordered By: Davis Armstrong on 05-08-2023 Creatinine [Mass/Vol] 0.71 mg/dL 0.70-1.30 [facility] Comment on above: The validity of the calculated GFR & GFRAA in patients over 70 years has not been determined. Clinical correlation is essential. Serum or plasma thyroid stim ulating hormone (TSH) measurement (units/volume)Ordered By: Davis Armstrong on 05-08-2023 TSH Qn 2.31 uIU/mL 0.358-3.74 [facility] Serum or plasma urea nitroge n measurement (mass/volume)Ordered By: Davis Armstrong on 05-08-2023 Urea nitrogen [Mass/Vol] 19 mg/dL 7-18 [facility] Thin prep Papanicolaou smear with manual screeningOrdered By: Davis Armstrong on 05-08-2023 Thin prep Papanicolaou smear with manual screening 3.9 g/dL 3.2-5.0 [facility] Thin prep Papanicolaou smear with manual screening 17 U/L 15-37 [facility] Thin prep Papanicolaou smear with manual screening 3 5-15 [facility] Urine blood detectionOrdered By: Davis Armstrong on 05-08-2023 RBC Ql (U) 10 /ul Negative [facility] Urine clarityOrdered By: Jarek Armstrong on 05-08-2023 Clarity (U) Clear Clear [facility] Urine color determinationOrd ered By: Davis Armstrong on 05-08-2023 Color (U) Straw Yellow [facility] Urine glucose detectionOrder ed By: Davis Armstrong on 05-08-2023 Glucose Ql (U) Normal mg/dl Normal [facility] Urine leukocyte esterase det ection by dipstickOrdered By: Davis Armstrong on 05-08-2023 Leukocyte esterase Test strip Ql (U) Negative Negative [facility] Urine pHOrdered By: Davis waterman on 05-08-2023 pH (U) 6.0 [pH] 5.0 - 8.0 [facility] Urine specific gravity measu rementOrdered By: Davis Armstrong on 05-08-2023 Specific gravity (U) [Rel density] 1.015 1.002-1.030 [facility] Urine urobilinogen measureme ntOrdered By: Davis Armstrong on 05-08-2023 Urobilinogen Ql (U) Normal mg/dl Normal [facility] Whole blood hemoglobin A1c/t otal hemoglobin ratio (mass fraction)Ordered By: Davis Armstrong on 05-08-2023 HbA1c (Bld) [Mass fraction] 6.3 % 3.8-5.6 [facility] Comment on above: Normal < 5.7 % Predi abetic 5.7 - 6.4 % Diabetic >or= 6.5 % Please note range changes. No Panel InformationOrdered By: Davis Armstrong on 01-08-2023 Prostate Specific Antigen Screen 1.48 ng/mL 0.00-4.00 [facility] Comment on above: This test was perfor med using the TPSA assay method for the[facility] chemistry system. Values obtained with differentassay methods cannot be used interchangably.When changing PSA assays in the course of monitoring apatient, additional sequential testing should be carriedout to confirm baseline values. Absolute lymphocyte countOrd ered By: Dnae Sterling on 12-27-2022 Lymphocytes Auto (Unsp spec) [#/Vol] 0.82 10*3/uL 0.83-4.51 [facility] Basophil percentageOrdered B y: Dane Sterling on 12-27-2022 Basophils/100 WBC (Bld) 1.1 % 0-1 [facility] Chloride [Moles/Vol] 108 mmol/L 98-107 [facility] Eosinophils/100 WBC (Bld) 4.0 % 0-5 [facility] Glucose [Mass/Vol] 108 mg/dL 74-106 [facility] Comment on above: Fasting Glucose resu lt from 100 to 125 mg/dL suggests IMPAIRED HOMEOSTASIS per A.D.A. criteria. Neutrophils (Bld) [#/Vol] 3.6 10*3/uL 2.0-7.7 [facility] Neutrophils/100 WBC (Bld) 68.5 % 47-70 [facility] Potassium [Moles/Vol] 3.4 mmol/L 3.5-5.1 [facility] Sodium [Moles/Vol] 138 mmol/L 136-145 [facility] WBC (Bld) [#/Vol] 5.2 10*3/uL 4.4-11.0 [facility] Blood erythrocytes count (nu mber/volume)Ordered By: Dane Sterling on 12-27-2022 RBC (Bld) [#/Vol] 4.41 10*6/uL 4.6-6.2 [facility] Blood hemoglobin measurement (mass/volume)Ordered By: Dane Sterling on 12-27-2022 Hemoglobin (Bld) [Mass/Vol] 13.5 g/dL 13.0-16.5 [facility] Blood lymphocytes/100 leukoc ytesOrdered By: Dane Sterling on 12-27-2022 Lymphocytes/100 WBC (Bld) 15.7 % 19-41 [facility] Blood monocytes/100 leukocyt esOrdered By: Dane Sterling on 12-27-2022 Monocytes/100 WBC (Bld) 10.3 % 0-10 [facility] Blood platelet mean volumeOr dered By: Dane Sterling on 12-27-2022 Platelet mean volume (Bld) [Entitic vol] 10.1 fL 6.2-12.0 [facility] Determination of erythrocyte mean corpuscular volume (MCV)Ordered By: Dane Sterling on 12-27-2022 MCV (RBC) [Entitic vol] 92.7 fL 80-94 [facility] Hematocrit Auto (Bld) [Volum e fraction]Ordered By: Dane Sterling on 12-27-2022 Hematocrit (Bld) [Volume fraction] 40.9 % 40-54 [facility] - Chemistry and C hemistry - challengeOrdered By: Dane Sterling on 12-27-2022 CO2 [Moles/Vol] 27.0 mmol/L 21.0-32.0 [facility] Urea nitrogen/Creatinine [Mass ratio] 23.6 mg/mg 10-20 [facility] - Hematology and Cell countsOrdered By: Dane Sterling on 12-27-2022 Erythrocyte distribution width (RBC) [Entitic vol] 42.6 fL 35.1-43.9 [facility] Erythrocyte distribution width (RBC) [Ratio] 12.5 % 11.6-14.6 [facility] Immature granulocytes/100 WBC (Bld) 0.400 % 0.0-0.9 [facility] Comment on above: IG% - Immature Granu locytes (promyelocytes, myelocytes and metamyelocytes) > 1% indicates that a LEFT SHIFT is Present. MCH (RBC) [Entitic mass] 30.6 pg 27.0-32.0 [facility] Nucleated RBC/100 WBC (Bld) [Ratio] 0 % 0-5 [facility] MCHC Auto (RBC) [Mass/Vol]Or dered By: Dane Sterling on 12-27-2022 MCHC (RBC) [Mass/Vol] 33.0 g/dL 32-36 [facility] No Panel InformationOrdered By: Dane Sterling on 12-27-2022 D-Dimer Quantitative (PE/DVT) 0.56 FEU/ug/m 0.27-0.49 [facility] Comment on above: D-Dimer ELEVATED (>0 .49): Additional studies and clinicalassessments are indicated to conclude diagnosis of:Deep Vein Thrombosis (DVT) or Pulmonary Embolism (PE)CRITICAL VALUE VERIFIED. CALLED TO TRAM GRANADOS (ER)12/27/22 0857 [address].RESULTS READ BACK BY SAME. Estimated Creatinine Clearance Calc 79.18 ml/min [facility] Estimated GFR (MDRD) Amer 121 mL/min >60 [facility] Comment on above: GFR Calc Estimated GFR (MDRD) Non-Af Amer 100 mL/min >60 [facility] Comment on above: Non- GFR Calc Troponin I High Sensitivity 8 pg/mL 3.0-78.0 [facility] Comment on above: Please Note: New Candie t Units and Gender Specific Reference Ranges. For more information see Policy Stat Procedure [place] High Sensitivity Troponin (TNIH) and attachments. Platelets bldOrdered By: Cody Sterling on 12-27-2022 Platelets (Bld) [#/Vol] 235 10*3/uL 150-450 [facility] Serum or plasma calcium ash urement (mass/volume)Ordered By: Dane Sterling on 12-27-2022 Calcium [Mass/Vol] 8.6 mg/dL 8.5-10.1 [facility] Serum or plasma creatinine m easurement (mass/volume)Ordered By: Dane Sterling on 12-27-2022 Creatinine [Mass/Vol] 0.80 mg/dL 0.70-1.30 [facility] Comment on above: The validity of the calculated GFR & GFRAA in patients over 70 years has not been determined. Clinical correlation is essential. Serum or plasma urea nitroge n measurement (mass/volume)Ordered By: Dane Sterling on 12-27-2022 Urea nitrogen [Mass/Vol] 19 mg/dL 7-18 [facility] Thin prep Papanicolaou smear with manual screeningOrdered By: Dane Sterling on 12-27-2022 Thin prep Papanicolaou smear with manual screening 3 5-15 [facility] Absolute lymphocyte countOrd ered By: Davis Armstrong on 10-08-2022 Lymphocytes Auto (Unsp spec) [#/Vol] 0.65 10*3/uL 0.83-4.51 [facility] Basophil percentageOrdered B y: Davis Armstrong on 10-08-2022 Basophil percentage 0 SEEN /hpf 0-5 [facility] Basophils/100 WBC (Bld) 0.8 % 0-1 [facility] Bilirubin [Mass/Vol] 0.90 mg/dL 0.20-1.00 [facility] Comment on above: For patients on eltr ombopag therapy, use of Dimension [place] TBIL is not recommended. Chloride [Moles/Vol] 109 mmol/L 98-107 [facility] Cholesterol [Mass/Vol] 136 mg/dL <200 [facility] Comment on above: <200 mg/dL Desirable 200-240 mg/dL Borderline >240 mg/dL High Risk Eosinophils/100 WBC (Bld) 1.6 % 0-5 [facility] Glucose [Mass/Vol] 103 mg/dL 74-106 [facility] Comment on above: Fasting Glucose resu lt from 100 to 125 mg/dL suggests IMPAIRED HOMEOSTASIS per A.D.A. criteria. Neutrophils (Bld) [#/Vol] 3.7 10*3/uL 2.0-7.7 [facility] Neutrophils/100 WBC (Bld) 75.3 % 47-70 [facility] Potassium [Moles/Vol] 3.6 mmol/L 3.5-5.1 [facility] Protein [Mass/Vol] 7.2 g/dL 6.4-8.2 [facility] Sodium [Moles/Vol] 138 mmol/L 136-145 [facility] Triglyceride [Mass/Vol] 65 mg/dL <199 [facility] Comment on above: The drugs N-Acetylcy steine and Metamizole may falsely depress this assay.Serum Triglycerides Reference Interval Normal <150 mg/dL Borderline high 150 - 199 mg/dL High 200 - 499 mg/dL Very High > or = 500 mg/dL WBC (Bld) [#/Vol] 4.9 10*3/uL 4.4-11.0 [facility] Bilirubin Test strip Ql (U)O rdered By: Davis Armstrong on 10-08-2022 Bilirubin Ql (U) Negative Negative [facility] Blood erythrocytes count (nu mber/volume)Ordered By: Davis Armstrong on 10-08-2022 RBC (Bld) [#/Vol] 4.49 10*6/uL 4.6-6.2 [facility] Blood hemoglobin measurement (mass/volume)Ordered By: Davis Armstrong on 10-08-2022 Hemoglobin (Bld) [Mass/Vol] 13.8 g/dL 13.0-16.5 [facility] Blood lymphocytes/100 leukoc ytesOrdered By: Davis Armstrong on 10-08-2022 Lymphocytes/100 WBC (Bld) 13.2 % 19-41 [facility] Blood monocytes/100 leukocyt esOrdered By: Davis Armstrong on 10-08-2022 Monocytes/100 WBC (Bld) 8.9 % 0-10 [facility] Blood platelet mean volumeOr dered By: Davis Armstrong on 10-08-2022 Platelet mean volume (Bld) [Entitic vol] 10.9 fL 6.2-12.0 [facility] Determination of erythrocyte mean corpuscular volume (MCV)Ordered By: Davis Armstrong on 10-08-2022 MCV (RBC) [Entitic vol] 92.2 fL 80-94 [facility] Hematocrit Auto (Bld) [Volum e fraction]Ordered By: Davis Armstrong on 10-08-2022 Hematocrit (Bld) [Volume fraction] 41.4 % 40-54 [facility] Iron measurement (mass/mass) Ordered By: Davis Armstrong on 10-08-2022 Iron (Unsp spec) [Mass/Mass] 83 ug/dL 65-175 [facility] Ketones Test strip Ql (U)Ord ered By: Davis Armstrong on 10-08-2022 Ketones Ql (U) Negative Negative [facility] - Chemistry and C hemistry - challengeOrdered By: Davis Armstrong on 10-08-2022 ALP [Catalytic activity/Vol] 89 U/L 45-117 [facility] ALT [Catalytic activity/Vol] 20 U/L 16-61 [facility] CO2 [Moles/Vol] 24.0 mmol/L 21.0-32.0 [facility] Cobalamin (Vitamin B12) [Mass/Vol] 393 pg/mL 211-911 [facility] Globulin (S) [Mass/Vol] 3.4 g/dL 2.2-4.2 [facility] Urea nitrogen/Creatinine [Mass ratio] 24.4 mg/mg 10-20 [facility] - Hematology and Cell countsOrdered By: Davis Armstrong on 10-08-2022 Erythrocyte distribution width (RBC) [Entitic vol] 42.4 fL 35.1-43.9 [facility] Erythrocyte distribution width (RBC) [Ratio] 12.4 % 11.6-14.6 [facility] Immature granulocytes/100 WBC (Bld) 0.200 % 0.0-0.9 [facility] Comment on above: IG% - Immature Granu locytes (promyelocytes, myelocytes and metamyelocytes) > 1% indicates that a LEFT SHIFT is Present. MCH (RBC) [Entitic mass] 30.7 pg 27.0-32.0 [facility] Nucleated RBC/100 WBC (Bld) [Ratio] 0 % 0-5 [facility] MCHC Auto (RBC) [Mass/Vol]Or dered By: Davis Armstrong on 10-08-2022 MCHC (RBC) [Mass/Vol] 33.3 g/dL 32-36 [facility] Mucus LM Ql (Urine sed)Order ed By: Davis Armstrong on 10-08-2022 Mucus Ql (Urine sed) 0 SEEN /hpf [facility] Nitrite Test strip Ql (U)Ord ered By: Davis Armstrong on 10-08-2022 Nitrite Ql (U) Negative Negative [facility] No Panel InformationOrdered By: Davis Armstrong on 10-08-2022 Estimated GFR (MDRD) Amer 154 mL/min >60 [facility] Comment on above: GFR Calc Estimated GFR (MDRD) Non-Af Amer 127 mL/min >60 [facility] Comment on above: Non- GFR Calc Thyroid Stimulating Hormone (TSH) 2.06 uIU/mL 0.358-3.74 [facility] Total Iron Binding Capacity 349 ug/dL 250-450 [facility] Platelets bldOrdered By: Jarek Armstrong on 10-08-2022 Platelets (Bld) [#/Vol] 213 10*3/uL 150-450 [facility] Protein Test strip Ql (U)Ord ered By: Davis Armstrong on 10-08-2022 Protein Ql (U) Negative Negative [facility] [facility] Serum or plasma albumin ash urement (mass/volume)Ordered By: Davis Armstrong on 10-08-2022 Albumin [Mass/Vol] 3.8 g/dL 3.2-5.0 [facility] Serum or plasma albumin/glob ulin mass ratioOrdered By: Davis Armstrong on 10-08-2022 Albumin/Globulin [Mass ratio] 1.1 {ratio} 0.9-2.4 [facility] Serum or plasma calcium ash urement (mass/volume)Ordered By: Davis Armstrong on 10-08-2022 Calcium [Mass/Vol] 8.8 mg/dL 8.5-10.1 [facility] Serum or plasma cholesterol in HDL measurement (mass/volume)Ordered By: Davis Armstrong on 10-08-2022 Cholesterol in HDL [Mass/Vol] 58 mg/dL >40 [facility] Comment on above: The drugs N-Acetylcy steine and Metamizole may falsely depress this assay. Reference Range HDL <40 mg/dL Low HDL Cholesterol HDL >or= 60 mg/dL High HDL Cholesterol Serum or plasma cholesterol in VLDL measurement (mass/volume)Ordered By: Davis Armstrong on 10-08-2022 Cholesterol in VLDL [Mass/Vol] 13 mg/dL 5-40 [facility] Serum or plasma creatinine m easurement (mass/volume)Ordered By: Davis Armstrong on 10-08-2022 Creatinine [Mass/Vol] 0.66 mg/dL 0.70-1.30 [facility] [place] Comment on above: The validity of the calculated GFR & GFRAA in patients over 70 years has not been determined. Clinical correlation is essential. Serum or plasma ferritin elham surement (mass/volume)Ordered By: Davis Armstrong on 10-08-2022 Ferritin [Mass/Vol] 187 ng/mL 26-388 [facility] Serum or plasma folate measu rement (mass/volume)Ordered By: Davis Armstrong on 10-08-2022 Folate [Mass/Vol] 10.00 ng/mL 3.1-55.4 [facility] Serum or plasma low density lipoprotein (LDL) cholesterol measurement (mass/volume)Ordered By: Davis Armstrong on 10-08-2022 Cholesterol in LDL [Mass/Vol] 65 mg/dL 0-130 [facility] Serum or plasma urea nitroge n measurement (mass/volume)Ordered By: Davis Armstrong on 10-08-2022 Urea nitrogen [Mass/Vol] 16 mg/dL 7-18 [facility] Squamous epithelial cells de tection in urine sediment by light microscopyOrdered By: Davis Armstrong on 10-08-2022 Epithelial cells.squamous LM Ql (Urine sed) 0 SEEN /hpf 0-5 [facility] Thin prep Papanicolaou smear with manual screeningOrdered By: Davis Armstrong on 10-08-2022 Thin prep Papanicolaou smear with manual screening 24 U/L 15-37 [facility] Thin prep Papanicolaou smear with manual screening 5 5-15 [facility] Urine blood detectionOrdered By: Davis Armstrong on 10-08-2022 RBC Ql (U) Negative Negative [facility] RBC Ql (U) 0 SEEN /hpf 0-5 [facility] Urine clarityOrdered By: Jarek Armstrong on 10-08-2022 Clarity (U) Clear Clear [facility] Urine color determinationOrd ered By: Davis Armstrong on 10-08-2022 Color (U) Straw Yellow [facility] Urine glucose detectionOrder ed By: Davis Armstrong on 10-08-2022 Glucose Ql (U) Normal mg/dl Normal [facility] Urine leukocyte esterase det ection by dipstickOrdered By: Davis Armstrong on 10-08-2022 Leukocyte esterase Test strip Ql (U) Negative Negative [facility] Urine pHOrdered By: Davis waterman on 10-08-2022 pH (U) 7.0 [pH] 5.0 - 8.0 [facility] Urine sediment bacteria coun t by microscopy (number/high power field)Ordered By: Davis Armstrong on 10-08-2022 Bacteria LM.HPF (Urine sed) [#/Area] 0 /[HPF] None Seen [facility] Urine specific gravity measu rementOrdered By: Davis Armstrong on 10-08-2022 Specific gravity (U) [Rel density] 1.010 1.002-1.030 [facility] Urobilinogen Auto test strip Ql (U)Ordered By: Davis Armstrong on 10-08-2022 Urobilinogen Ql (U) Normal mg/dl Normal [facility] [place] Whole blood hemoglobin A1c/t otal hemoglobin ratio (mass fraction)Ordered By: Davis Armstrong on 10-08-2022 HbA1c (Bld) [Mass fraction] 6.1 % 3.8-5.6 [facility] Comment on above: Normal < 5.7 % Predi abetic 5.7 - 6.4 % Diabetic >or= 6.5 % Please note range changes. Basophil percentageOrdered B y: Dr. Mayes on 03-28-2022 Chloride [Moles/Vol] 107 mmol/L 98-107 [facility] Glucose [Mass/Vol] 92 mg/dL 74-106 [facility] Potassium [Moles/Vol] 3.7 mmol/L 3.5-5.1 [facility] [place] Sodium [Moles/Vol] 140 mmol/L 136-145 [facility] WBC (Bld) [#/Vol] 5.3 10*3/uL 4.4-11.0 [facility] Blood erythrocytes count (nu mber/volume)Ordered By: Dr. Mayes on 03-28-2022 RBC (Bld) [#/Vol] 4.32 10*6/uL 4.6-6.2 [facility] Blood hemoglobin measurement (mass/volume)Ordered By: Dr. Mayes on 03-28-2022 Hemoglobin (Bld) [Mass/Vol] 13.2 g/dL 13.0-16.5 [facility] Blood platelet mean volumeOr dered By: Dr. Mayes on 03-28-2022 Platelet mean volume (Bld) [Entitic vol] 10.8 fL 6.2-12.0 [facility] Determination of erythrocyte mean corpuscular volume (MCV)Ordered By: Dr. Mayes on 03-28-2022 MCV (RBC) [Entitic vol] 92.4 fL 80-94 [facility] Hematocrit Auto (Bld) [Volum e fraction]Ordered By: Dr. Mayes on 03-28-2022 Hematocrit (Bld) [Volume fraction] 39.9 % 40-54 [facility] Laboratory - Chemistry and C hemistry - challengeOrdered By: Dr. Mayes on 03-28-2022 CO2 [Moles/Vol] 26.0 mmol/L 21.0-32.0 [facility] Urea nitrogen/Creatinine [Mass ratio] 25.2 mg/mg 10-20 [facility] Laboratory - Hematology and Cell countsOrdered By: Dr. Mayes on 03-28-2022 Erythrocyte distribution width (RBC) [Entitic vol] 43.5 fL 35.1-43.9 [facility] Erythrocyte distribution width (RBC) [Ratio] 13.0 % 11.6-14.6 [facility] MCH (RBC) [Entitic mass] 30.6 pg 27.0-32.0 [facility] MCHC Auto (RBC) [Mass/Vol]Or dered By: Dr. Mayes on 03-28-2022 MCHC (RBC) [Mass/Vol] 33.1 g/dL 32-36 [facility] [place] No Panel InformationOrdered By: Dr. Mayes on 03-28-2022 Estimated GFR (MDRD) Amer 140 mL/min >60 [facility] Comment on above: GFR Calc Estimated GFR (MDRD) Non-Af Amer 116 mL/min >60 [facility] Comment on above: Non- GFR Calc Platelets bldOrdered By: Dr. Mayes on 03-28-2022 Platelets (Bld) [#/Vol] 233 10*3/uL 150-450 [facility] Serum or plasma calcium ash urement (mass/volume)Ordered By: Dr. Mayes on 03-28-2022 Calcium [Mass/Vol] 8.8 mg/dL 8.5-10.1 [facility] Serum or plasma creatinine m easurement (mass/volume)Ordered By: Dr. Mayes on 03-28-2022 Creatinine [Mass/Vol] 0.71 mg/dL 0.70-1.30 [facility] [place] Comment on above: The validity of the calculated GFR & GFRAA in patients over 70 years has not been determined. Clinical correlation is essential. Serum or plasma urea nitroge n measurement (mass/volume)Ordered By: Dr. Mayes on 03-28-2022 Urea nitrogen [Mass/Vol] 18 mg/dL 7-18 [facility] Thin prep Papanicolaou smear with manual screeningOrdered By: Dr. Mayes on 03-28-2022 Thin prep Papanicolaou smear with manual screening 7 5-15 [facility] Absolute lymphocyte countOrd ered By: Dr. Hatch on 01-16-2022 Lymphocytes Auto (Unsp spec) [#/Vol] 0.63 10*3/uL 0.83-4.51 [facility] Basophil percentageOrdered B y: Dr. Hatch on 01-16-2022 Basophil percentage 10-25 SEEN /hpf 0-5 [facility] Basophils/100 WBC (Bld) 0.6 % 0-1 [facility] Chloride [Moles/Vol] 106 mmol/L 98-107 [facility] Eosinophils/100 WBC (Bld) 0.6 % 0-5 [facility] Glucose [Mass/Vol] 153 mg/dL 74-106 [facility] Comment on above: Fasting Glucose resu lt greater than or equal to 126 mg/dL suggests DIABETES MELLITUS per A.D.A. criteria. Neutrophils (Bld) [#/Vol] 6.6 10*3/uL 2.0-7.7 [facility] Neutrophils/100 WBC (Bld) 83.2 % 47-70 [facility] Potassium [Moles/Vol] 3.3 mmol/L 3.5-5.1 [facility] [place] Sodium [Moles/Vol] 137 mmol/L 136-145 [facility] WBC (Bld) [#/Vol] 7.9 10*3/uL 4.4-11.0 [facility] Bilirubin Test strip Ql (U)O rdered By: Dr. Hatch on 01-16-2022 Bilirubin Ql (U) Negative Negative [facility] Blood erythrocytes count (nu mber/volume)Ordered By: Dr. Hatch on 01-16-2022 RBC (Bld) [#/Vol] 4.32 10*6/uL 4.6-6.2 [facility] Blood hemoglobin measurement (mass/volume)Ordered By: Dr. Hatch on 01-16-2022 Hemoglobin (Bld) [Mass/Vol] 13.4 g/dL 13.0-16.5 [facility] Blood lymphocytes/100 leukoc ytesOrdered By: Dr. Hatch on 01-16-2022 Lymphocytes/100 WBC (Bld) 8.0 % 19-41 [facility] Blood monocytes/100 leukocyt esOrdered By: Dr. Hatch on 01-16-2022 Monocytes/100 WBC (Bld) 7.2 % 0-10 [facility] Blood platelet mean volumeOr dered By: Dr. Hatch on 01-16-2022 Platelet mean volume (Bld) [Entitic vol] 10.3 fL 6.2-12.0 [facility] Determination of erythrocyte mean corpuscular volume (MCV)Ordered By: Dr. Hatch on 01-16-2022 MCV (RBC) [Entitic vol] 91.4 fL 80-94 [facility] Glucose Glucometer (BldC) [M ass/Vol]Ordered By: Dr. Mayes on 01-16-2022 Glucose [Mass/Vol] 111 mg/dL 74-106 [facility] Comment on above: MANAGEMENT OF PATIEN T CARE PER NURSING PROTOCOL Hematocrit Auto (Bld) [Volum e fraction]Ordered By: Dr. Hatch on 01-16-2022 Hematocrit (Bld) [Volume fraction] 39.5 % 40-54 [facility] Ketones Test strip Ql (U)Ord ered By: Dr. Hatch on 01-16-2022 Ketones Ql (U) Negative Negative [facility] Laboratory - Chemistry and C hemistry - challengeOrdered By: Dr. Hatch on 01-16-2022 CO2 [Moles/Vol] 25.0 mmol/L 21.0-32.0 [facility] Urea nitrogen/Creatinine [Mass ratio] 23.4 mg/mg 10-20 [facility] Laboratory - Hematology and Cell countsOrdered By: Dr. Hatch on 01-16-2022 Erythrocyte distribution width (RBC) [Entitic vol] 42.2 fL 35.1-43.9 [facility] Erythrocyte distribution width (RBC) [Ratio] 12.7 % 11.6-14.6 [facility] Immature granulocytes/100 WBC (Bld) 0.400 % 0.0-0.9 [facility] Comment on above: IG% - Immature Granu locytes (promyelocytes, myelocytes and metamyelocytes) > 1% indicates that a LEFT SHIFT is Present. MCH (RBC) [Entitic mass] 31.0 pg 27.0-32.0 [facility] Nucleated RBC/100 WBC (Bld) [Ratio] 0 % 0-5 [facility] MCHC Auto (RBC) [Mass/Vol]Or dered By: Dr. Hatch on 01-16-2022 MCHC (RBC) [Mass/Vol] 33.9 g/dL 32-36 [facility] [place] Mucus LM Ql (Urine sed)Order ed By: Dr. Hatch on 01-16-2022 Mucus Ql (Urine sed) 0 SEEN /hpf [facility] [place] Nitrite Test strip Ql (U)Ord ered By: Dr. Hatch on 01-16-2022 Nitrite Ql (U) Negative Negative [facility] No Panel InformationOrdered By: Dr. Hatch on 01-16-2022 Estimated Creatinine Clearance Calc 70.38 ml/min [facility] Estimated GFR (MDRD) Amer 107 mL/min >60 [facility] Comment on above: GFR Calc Estimated GFR (MDRD) Non-Af Amer 89 mL/min >60 [facility] Comment on above: Non- GFR Calc Platelets bldOrdered By: Dr. Hatch on 01-16-2022 Platelets (Bld) [#/Vol] 236 10*3/uL 150-450 [facility] Protein Test strip Ql (U)Ord ered By: Dr. Hatch on 01-16-2022 Protein Ql (U) 500 mg/dl Negative [facility] Serum or plasma calcium ash urement (mass/volume)Ordered By: Dr. Hatch on 01-16-2022 Calcium [Mass/Vol] 8.5 mg/dL 8.5-10.1 [facility] Serum or plasma creatinine m easurement (mass/volume)Ordered By: Dr. Hatch on 01-16-2022 Creatinine [Mass/Vol] 0.90 mg/dL 0.70-1.30 [facility] [place] Comment on above: The validity of the calculated GFR & GFRAA in patients over 70 years has not been determined. Clinical correlation is essential. Serum or plasma urea nitroge n measurement (mass/volume)Ordered By: Dr. Hatch on 01-16-2022 Urea nitrogen [Mass/Vol] 21 mg/dL 7-18 [facility] Squamous epithelial cells de tection in urine sediment by light microscopyOrdered By: Dr. Hatch on 01-16-2022 Epithelial cells.squamous LM Ql (Urine sed) 0 SEEN /hpf 0-5 [facility] Thin prep Papanicolaou smear with manual screeningOrdered By: Dr. Hatch on 01-16-2022 Thin prep Papanicolaou smear with manual screening 6 5-15 [facility] Urine blood detectionOrdered By: Dr. Hatch on 01-16-2022 RBC Ql (U) 250 /ul Negative [facility] RBC Ql (U) > 100 SEEN /hpf 0-5 [facility] Urine clarityOrdered By: Dr. Hatch on 01-16-2022 Clarity (U) Turbid Clear [facility] Urine color determinationOrd ered By: Dr. Hatch on 01-16-2022 Color (U) Red Yellow [facility] Urine glucose detectionOrder ed By: Dr. Hatch on 01-16-2022 Glucose Ql (U) 50 mg/dl Normal [facility] Urine leukocyte esterase det ection by dipstickOrdered By: Dr. Hatch on 01-16-2022 Leukocyte esterase Test strip Ql (U) 25 /ul Negative [facility] Urine pHOrdered By: Dr. Lawson wu on 01-16-2022 pH (U) 7.0 [pH] 5.0 - 8.0 [facility] Urine sediment bacteria coun t by microscopy (number/high power field)Ordered By: Dr. Hatch on 01-16-2022 Bacteria LM.HPF (Urine sed) [#/Area] 0 /[HPF] None Seen [facility] Urine specific gravity measu rementOrdered By: Dr. Hatch on 01-16-2022 Specific gravity (U) [Rel density] 1.010 1.002-1.030 [facility] Urobilinogen Auto test strip Ql (U)Ordered By: Dr. Hatch on 01-16-2022 Urobilinogen Ql (U) Normal mg/dl Normal [facility] [place] Glucose Glucometer (BldC) [M ass/Vol]Ordered By: Dr. Mayes on 12-19-2021 Glucose [Mass/Vol] 99 mg/dL 74-106 [facility] Comment on above: MANAGEMENT OF PATIEN T CARE PER NURSING PROTOCOL Absolute lymphocyte countOrd ered By: Dr. Armstrong on 12-18-2021 Lymphocytes Auto (Unsp spec) [#/Vol] 0.70 10*3/uL 0.83-4.51 [facility] Basophil percentageOrdered B y: Dr. Armstrong on 12-18-2021 Basophils/100 WBC (Bld) 0.6 % 0-1 [facility] Bilirubin [Mass/Vol] 1.00 mg/dL 0.20-1.00 [facility] Comment on above: For patients on eltr ombopag therapy, use of Dimension [place] TBIL is not recommended. Chloride [Moles/Vol] 107 mmol/L 98-107 [facility] Cholesterol [Mass/Vol] 120 mg/dL <200 [facility] Comment on above: <200 mg/dL Desirable 200-240 mg/dL Borderline >240 mg/dL High Risk Eosinophils/100 WBC (Bld) 0.7 % 0-5 [facility] Glucose [Mass/Vol] 95 mg/dL 74-106 [facility] Neutrophils (Bld) [#/Vol] 9.0 10*3/uL 2.0-7.7 [facility] Neutrophils/100 WBC (Bld) 84.2 % 47-70 [facility] Potassium [Moles/Vol] 3.7 mmol/L 3.5-5.1 [facility] [place] Protein [Mass/Vol] 7.0 g/dL 6.4-8.2 [facility] Sodium [Moles/Vol] 139 mmol/L 136-145 [facility] Triglyceride [Mass/Vol] 53 mg/dL <199 [facility] Comment on above: The drugs N-Acetylcy steine and Metamizole may falsely depress this assay.Serum Triglycerides Reference Interval Normal <150 mg/dL Borderline high 150 - 199 mg/dL High 200 - 499 mg/dL Very High > or = 500 mg/dL WBC (Bld) [#/Vol] 10.7 10*3/uL 4.4-11.0 [facility] Blood erythrocytes count (nu mber/volume)Ordered By: Dr. Armstrong on 12-18-2021 RBC (Bld) [#/Vol] 4.39 10*6/uL 4.6-6.2 [facility] Blood hemoglobin measurement (mass/volume)Ordered By: Dr. Armstrong on 12-18-2021 Hemoglobin (Bld) [Mass/Vol] 13.6 g/dL 13.0-16.5 [facility] Blood lymphocytes/100 leukoc ytesOrdered By: Dr. Armstrong on 12-18-2021 Lymphocytes/100 WBC (Bld) 6.6 % 19-41 [facility] Blood monocytes/100 leukocyt esOrdered By: Dr. Armstrong on 12-18-2021 Monocytes/100 WBC (Bld) 7.4 % 0-10 [facility] Blood platelet mean volumeOr dered By: Dr. Armstrong on 12-18-2021 Platelet mean volume (Bld) [Entitic vol] 11.0 fL 6.2-12.0 [facility] Determination of erythrocyte mean corpuscular volume (MCV)Ordered By: Dr. Armstrong on 12-18-2021 MCV (RBC) [Entitic vol] 92.7 fL 80-94 [facility] Hematocrit Auto (Bld) [Volum e fraction]Ordered By: Dr. Armstrong on 12-18-2021 Hematocrit (Bld) [Volume fraction] 40.7 % 40-54 [facility] Iron measurement (mass/mass) Ordered By: Dr. Armstrong on 12-18-2021 Iron (Unsp spec) [Mass/Mass] 32 ug/dL 65-175 [facility] Laboratory - Chemistry and C hemistry - challengeOrdered By: Dr. Armstrong on 12-18-2021 ALP [Catalytic activity/Vol] 79 U/L 45-117 [facility] ALT [Catalytic activity/Vol] 22 U/L 16-61 [facility] CO2 [Moles/Vol] 26.0 mmol/L 21.0-32.0 [facility] Cobalamin (Vitamin B12) [Mass/Vol] 534 pg/mL 211-911 [facility] Globulin (S) [Mass/Vol] 3.5 g/dL 2.2-4.2 [facility] Transferrin [Mass/Vol] 211 mg/dL 177-329 [facility] Comment on above: Performed at: [address] [id number] Director: Scooby Downs PhD, Phone: [phone] Urea nitrogen/Creatinine [Mass ratio] 23.4 mg/mg 10-20 [facility] Laboratory - Hematology and Cell countsOrdered By: Dr. Armstrong on 12-18-2021 Erythrocyte distribution width (RBC) [Entitic vol] 43.7 fL 35.1-43.9 [facility] Erythrocyte distribution width (RBC) [Ratio] 12.6 % 11.6-14.6 [facility] Immature granulocytes/100 WBC (Bld) 0.500 % 0.0-0.9 [facility] Comment on above: IG% - Immature Granu locytes (promyelocytes, myelocytes and metamyelocytes) > 1% indicates that a LEFT SHIFT is Present. MCH (RBC) [Entitic mass] 31.0 pg 27.0-32.0 [facility] Nucleated RBC/100 WBC (Bld) [Ratio] 0 % 0-5 [facility] MCHC Auto (RBC) [Mass/Vol]Or dered By: Dr. Armstrong on 12-18-2021 MCHC (RBC) [Mass/Vol] 33.4 g/dL 32-36 [facility] [place] No Panel InformationOrdered By: Dr. Armstrong on 12-18-2021 Estimated GFR (MDRD) Amer 137 mL/min >60 [facility] Comment on above: GFR Calc Estimated GFR (MDRD) Non-Af Amer 114 mL/min >60 [facility] Comment on above: Non- GFR Calc Prostate Specific Antigen Screen 0.82 ng/mL 0.00-4.00 [facility] Comment on above: This test was perfor med using the TPSA assay method for the[facility] system. Values obtained with differentassay methods cannot be used interchangably.When changing PSA assays in the course of monitoring apatient, additional sequential testing should be carriedout to confirm baseline values. Total Iron Binding Capacity 269 ug/dL 250-450 [facility] Platelets bldOrdered By: Dr. Armstrong on 12-18-2021 Platelets (Bld) [#/Vol] 262 10*3/uL 150-450 [facility] Serum or plasma albumin ash urement (mass/volume)Ordered By: Dr. Armstrong on 12-18-2021 Albumin [Mass/Vol] 3.5 g/dL 3.2-5.0 [facility] Serum or plasma albumin/glob ulin mass ratioOrdered By: Dr. Armstrong on 12-18-2021 Albumin/Globulin [Mass ratio] 1.0 {ratio} 0.9-2.4 [facility] Serum or plasma calcium ash urement (mass/volume)Ordered By: Dr. Armstrong on 12-18-2021 Calcium [Mass/Vol] 9.0 mg/dL 8.5-10.1 [facility] Serum or plasma cholesterol in HDL measurement (mass/volume)Ordered By: Dr. Armstrong on 12-18-2021 Cholesterol in HDL [Mass/Vol] 61 mg/dL >40 [facility] Comment on above: The drugs N-Acetylcy steine and Metamizole may falsely depress this assay. Reference Range HDL <40 mg/dL Low HDL Cholesterol HDL >or= 60 mg/dL High HDL Cholesterol Serum or plasma cholesterol in VLDL measurement (mass/volume)Ordered By: Dr. Armstrong on 12-18-2021 Cholesterol in VLDL [Mass/Vol] 11 mg/dL 5-40 [facility] Serum or plasma creatinine m easurement (mass/volume)Ordered By: Dr. Armstrong on 12-18-2021 Creatinine [Mass/Vol] 0.72 mg/dL 0.70-1.30 [facility] [place] Comment on above: The validity of the calculated GFR & GFRAA in patients over 70 years has not been determined. Clinical correlation is essential. Serum or plasma ferritin elham surement (mass/volume)Ordered By: Dr. Armstrong on 12-18-2021 Ferritin [Mass/Vol] 339 ng/mL 26-388 [facility] Serum or plasma low density lipoprotein (LDL) cholesterol measurement (mass/volume)Ordered By: Dr. Armstrong on 12-18-2021 Cholesterol in LDL [Mass/Vol] 48 mg/dL 0-130 [facility] Serum or plasma urea nitroge n measurement (mass/volume)Ordered By: Dr. Armstrong on 12-18-2021 Urea nitrogen [Mass/Vol] 17 mg/dL 7-18 [facility] Thin prep Papanicolaou smear with manual screeningOrdered By: Dr. Armstrong on 12-18-2021 Thin prep Papanicolaou smear with manual screening 20 U/L 15-37 [facility] Thin prep Papanicolaou smear with manual screening 6 5-15 [facility] Whole blood hemoglobin A1c/t otal hemoglobin ratio (mass fraction)Ordered By: Dr. Armstrong on 12-18-2021 HbA1c (Bld) [Mass fraction] 6.1 % 3.8-5.6 [facility] Comment on above: Normal < 5.7 % Predi abetic 5.7 - 6.4 % Diabetic >or= 6.5 % Please note range changes. Absolute lymphocyte counton 12-02-2021 Lymphocytes Auto (Unsp spec) [#/Vol] 0.63 10*3/uL 0.83-4.51 [facility] Work Phone: Basophil percentageon 2021 Basophil percentage 0-5 SEEN /hpf 0-5 [facility] Work Phone: Basophils/100 WBC (Bld) 0.6 % 0-1 [facility] Work Phone: Bilirubin [Mass/Vol] 1.00 mg/dL 0.20-1.00 [facility] Work Phone: Comment on above: For patients on eltr ombopag therapy, use of Dimension [place] TBIL is not recommended. Chloride [Moles/Vol] 109 mmol/L 98-107 [facility] Work Phone: Eosinophils/100 WBC (Bld) 0.4 % 0-5 [facility] Work Phone: Glucose [Mass/Vol] 111 mg/dL 74-106 [facility] Work Phone: Comment on above: Fasting Glucose resu lt from 100 to 125 mg/dL suggests IMPAIRED HOMEOSTASIS per A.D.A. criteria. Neutrophils (Bld) [#/Vol] 9.1 10*3/uL 2.0-7.7 [facility] Work Phone: Neutrophils/100 WBC (Bld) 83.8 % 47-70 [facility] Work Phone: Potassium [Moles/Vol] 3.7 mmol/L 3.5-5.1 Short ster [facility] [place]: Protein [Mass/Vol] 7.2 g/dL 6.4-8.2 [place] [facility] [place]: Sodium [Moles/Vol] 144 mmol/L 136-145 [place] [facility] [place]: WBC (Bld) [#/Vol] 10.9 10*3/uL 4.4-11.0 [facility]: Bilirubin Test strip Ql (U)o n 12-02-2021 Bilirubin Ql (U) Negative Negative [facility] Work Phone: Blood erythrocytes count (nu mber/volume)on 12-02-2021 RBC (Bld) [#/Vol] 4.65 10*6/uL 4.6-6.2 [facility] Work Phone: Blood hemoglobin measurement (mass/volume)on 12-02-2021 Hemoglobin (Bld) [Mass/Vol] 14.4 g/dL 13.0-16.5 [facility] Work Phone: Blood lymphocytes/100 leukoc yteson 12-02-2021 Lymphocytes/100 WBC (Bld) 5.8 % 19-41 [facility] Work Phone: Blood monocytes/100 leukocyt eson 12-02-2021 Monocytes/100 WBC (Bld) 9.1 % 0-10 [facility] Work Phone: Blood platelet mean volumeon 12-02-2021 Platelet mean volume (Bld) [Entitic vol] 10.4 fL 6.2-12.0 [facility] Work Phone: Determination of erythrocyte mean corpuscular volume (MCV)on 12-02-2021 MCV (RBC) [Entitic vol] 94.2 fL 80-94 [facility] Work Phone: Hematocrit Auto (Bld) [Volum e fraction]on 12-02-2021 Hematocrit (Bld) [Volume fraction] 43.8 % 40-54 [facility] Work Phone: [phone] Ketones Test strip Ql (U)on 12-02-2021 Ketones Ql (U) Negative Negative [facility] Work Phone: [phone] Laboratory - Chemistry and C hemistry - challengeon 12-02-2021 ALP [Catalytic activity/Vol] 71 U/L 45-117 [facility] Work Phone: [phone] ALT [Catalytic activity/Vol] 21 U/L 16-61 [facility] Work Phone: [phone] CO2 [Moles/Vol] 27.0 mmol/L 21.0-32.0 [facility] Work Phone: [phone] Globulin (S) [Mass/Vol] 3.4 g/dL 2.2-4.2 [facility] Work Phone: [phone] Lipase [Catalytic activity/Vol] 112 U/L 73-393 [facility] Work Phone: [phone] Urea nitrogen/Creatinine [Mass ratio] 22.2 mg/mg 10-20 [facility] Work Phone: [phone] Laboratory - Hematology and Cell countson 12-02-2021 Erythrocyte distribution width (RBC) [Entitic vol] 44.7 fL 35.1-43.9 [facility] Work Phone: [phone] Erythrocyte distribution width (RBC) [Ratio] 13.1 % 11.6-14.6 [facility] Work Phone: [phone] Immature granulocytes/100 WBC (Bld) 0.300 % 0.0-0.9 [facility] Work Phone: [phone] Comment on above: IG% - Immature Granu locytes (promyelocytes, myelocytes and metamyelocytes) > 1% indicates that a LEFT SHIFT is Present. MCH (RBC) [Entitic mass] 31.0 pg 27.0-32.0 [facility] Work Phone: [phone] Nucleated RBC/100 WBC (Bld) [Ratio] 0 % 0-5 [facility] Work Phone: [phone] MCHC Auto (RBC) [Mass/Vol]on 12-02-2021 MCHC (RBC) [Mass/Vol] 32.9 g/dL 32-36 [facility] Work Phone: [phone] Mucus LM Ql (Urine sed)on Mucus Ql (Urine sed) 0 SEEN /hpf [facility] Work Phone: Nitrite Test strip Ql (U)on 12-02-2021 Nitrite Ql (U) Negative Negative [facility] Work Phone: [phone] Panel Informationon 12-02 Estimated Creatinine Clearance Calc 51.00 ml/min [facility] Work Phone: [phone] Estimated GFR (MDRD) Amer 73 mL/min >60 [facility] Work Phone: [phone] Comment on above: GFR Calc Estimated GFR (MDRD) Non-Af Amer 60 mL/min >60 [facility] Work Phone: Comment on above: Non- GFR Calc Platelets bldon 12-02-2021 Platelets (Bld) [#/Vol] 216 10*3/uL 150-450 [facility] Work Phone: [phone] Protein Test strip Ql (U)on 12-02-2021 Protein Ql (U) 15 mg/dl Negative [facility] Work Phone: [phone] Serum or plasma albumin ash urement (mass/volume)on 12-02-2021 Albumin [Mass/Vol] 3.8 g/dL 3.2-5.0 [facility] Work Phone: [phone] Serum or plasma albumin/glob ulin mass ratioon 12-02-2021 Albumin/Globulin [Mass ratio] 1.1 {ratio} 0.9-2.4 [facility] Work Phone: [phone] Serum or plasma calcium ash urement (mass/volume)on 12-02-2021 Calcium [Mass/Vol] 9.2 mg/dL 8.5-10.1 [facility] Work Phone: [phone] Serum or plasma creatinine m easurement (mass/volume)on 12-02-2021 Creatinine [Mass/Vol] 1.26 mg/dL 0.70-1.30 [facility] Work Phone: Comment on above: The validity of the calculated GFR & GFRAA in patients over 70 years has not been determined. Clinical correlation is essential. Serum or plasma urea nitroge n measurement (mass/volume)on 12-02-2021 Urea nitrogen [Mass/Vol] 28 mg/dL -18 [facility] Work Phone: [phone] Squamous epithelial cells de tection in urine sediment by light microscopyon 12-02-2021 Epithelial cells.squamous LM Ql (Urine sed) 0 SEEN /hpf 0-5 [facility] Work Phone: Thin prep Papanicolaou smear with manual screeningon 12-02-2021 Thin prep Papanicolaou smear with manual screening 25 U/L 15-37 [facility] Work Phone: Thin prep Papanicolaou smear with manual screening 8 5-15 [facility] Work Phone: Urine blood detectionon 11-15 RBC Ql (U) 150 /ul Negative [facility] Work Phone: [phone] RBC Ql (U) 5-10 SEEN /hpf 0-5 [facility] Work Phone: [phone] Urine clarityon 12-02-2021 Clarity (U) Clear Clear [facility] Work Phone: Urine color determinationon 12-02-2021 Color (U) Yellow Yellow [facility] Work Phone: Urine glucose detectionon Glucose Ql (U) Normal mg/dl Normal [facility] Work Phone: [phone] Urine leukocyte esterase det ection by dipstickon 12-02-2021 Leukocyte esterase Test strip Ql (U) Negative Negative [facility] Work Phone: [phone] Urine pHon 12-02-2021 pH (U) 6.0 [pH] 5.0 - 8.0 [facility] Work Phone: [phone] Urine sediment bacteria coun t by microscopy (number/high power field)on 12-02-2021 Bacteria LM.HPF (Urine sed) [#/Area] RARE /hpf None Seen [facility] Work Phone: Urine specific gravity measu rementon 12-02-2021 Specific gravity (U) [Rel density] 1.015 1.002-1.030 [facility] Work Phone: Urobilinogen Auto test strip Ql (U)on 12-02-2021 Urobilinogen Ql (U) Normal mg/dl Normal [facility] Work Phone: Absolute lymphocyte counton 10-02-2021 Lymphocytes Auto (Unsp spec) [#/Vol] 0.89 10*3/uL 0.83-4.51 [facility] Work Phone: Basophil percentageon 2021 Basophils/100 WBC (Bld) 1.2 % 0-1 [facility] Work Phone: Bilirubin [Mass/Vol] 0.80 mg/dL 0.20-1.00 [facility] Work Phone: Comment on above: For patients on eltr ombopag therapy, use of Dimension [place] TBIL is not recommended. Chloride [Moles/Vol] 107 mmol/L 98-107 [facility] Work Phone: Cholesterol [Mass/Vol] 132 mg/dL <200 [facility] Work Phone: Comment on above: <200 mg/dL Desirable 200-240 mg/dL Borderline >240 mg/dL High Risk Eosinophils/100 WBC (Bld) 2.7 % 0-5 [facility] Work Phone: Glucose [Mass/Vol] 95 mg/dL 74-106 [facility] Work Phone: Neutrophils (Bld) [#/Vol] 3.3 10*3/uL 2.0-7.7 [facility] Work Phone: Neutrophils/100 WBC (Bld) 68.0 % 47-70 [facility] Work Phone: Potassium [Moles/Vol] 3.7 mmol/L 3.5-5.1 [facility] Work Phone: [phone] Protein [Mass/Vol] 6.6 g/dL 6.4-8.2 [facility] Work Phone: [phone] Sodium [Moles/Vol] 140 mmol/L 136-145 [facility] Work Phone: [phone] Triglyceride [Mass/Vol] 54 mg/dL <199 [facility] Work Phone: [phone] Comment on above: The drugs N-Acetylcy steine and Metamizole may falsely depress this assay.Serum Triglycerides Reference Interval Normal <150 mg/dL Borderline high 150 - 199 mg/dL High 200 - 499 mg/dL Very High > or = 500 mg/dL WBC (Bld) [#/Vol] 4.8 10*3/uL 4.4-11.0 [facility] Work Phone: Blood erythrocytes count (nu mber/volume)on 10-02-2021 RBC (Bld) [#/Vol] 4.07 10*6/uL 4.6-6.2 [facility] Work Phone: [phone] Blood hemoglobin measurement (mass/volume)on 10-02-2021 Hemoglobin (Bld) [Mass/Vol] 12.9 g/dL 13.0-16.5 [facility] Work Phone: Blood lymphocytes/100 leukoc yteson 10-02-2021 Lymphocytes/100 WBC (Bld) 18.5 % 19-41 [facility] Work Phone: [phone] Blood monocytes/100 leukocyt eson 10-02-2021 Monocytes/100 WBC (Bld) 9.4 % 0-10 [facility] Work Phone: Blood platelet mean volumeon 10-02-2021 Platelet mean volume (Bld) [Entitic vol] 10.8 fL 6.2-12.0 [facility] Work Phone: [phone] Determination of erythrocyte mean corpuscular volume (MCV)on 10-02-2021 MCV (RBC) [Entitic vol] 95.3 fL 80-94 [facility] Work Phone: [phone] Hematocrit Auto (Bld) [Volum e fraction]on 10-02-2021 Hematocrit (Bld) [Volume fraction] 38.8 % 40-54 [facility] Work Phone: [phone] Iron measurement (mass/mass) on 10-02-2021 Iron (Unsp spec) [Mass/Mass] 104 ug/dL 65-175 [facility] Work Phone: [phone] Laboratory - Chemistry and C hemistry - challengeon 10-02-2021 Cobalamin (Vitamin B12) [Mass/Vol] 449 pg/mL 211-911 [facility] Work Phone: ALP [Catalytic activity/Vol] 68 U/L 45-117 [facility] Work Phone: [phone] ALT [Catalytic activity/Vol] 21 U/L 16-61 [facility] Work Phone: [phone] CO2 [Moles/Vol] 27.0 mmol/L 21.0-32.0 [facility] Work Phone: [phone] Globulin (S) [Mass/Vol] 3.1 g/dL 2.2-4.2 [facility] Work Phone: [phone] Transferrin [Mass/Vol] 229 mg/dL 177-329 [facility] Work Phone: [phone] Comment on above: Performed at: [address] [id number] Director: Scooby Downs PhD, Phone: [phone] Urea nitrogen/Creatinine [Mass ratio] 31.4 mg/mg 10-20 [facility] Work Phone: [phone] Laboratory - Hematology and Cell countson 10-02-2021 Erythrocyte distribution width (RBC) [Entitic vol] 43.9 fL 35.1-43.9 [facility] Work Phone: [phone] Erythrocyte distribution width (RBC) [Ratio] 12.5 % 11.6-14.6 [facility] Work Phone: [phone] Immature granulocytes/100 WBC (Bld) 0.200 % 0.0-0.9 [facility] Work Phone: Comment on above: IG% - Immature Granu locytes (promyelocytes, myelocytes and metamyelocytes) > 1% indicates that a LEFT SHIFT is Present. MCH (RBC) [Entitic mass] 31.7 pg 27.0-32.0 [facility] Work Phone: Nucleated RBC/100 WBC (Bld) [Ratio] 0 % 0-5 [facility] Work Phone: [phone] MCHC Auto (RBC) [Mass/Vol]on 10-02-2021 MCHC (RBC) [Mass/Vol] 33.2 g/dL 32-36 [facility] Work Phone: No Panel Informationon 10-02 Estimated GFR (MDRD) Amer 143 mL/min >60 [facility] Work Phone: Comment on above: GFR Calc Estimated GFR (MDRD) Non-Af Amer 118 mL/min >60 [facility] Work Phone: Comment on above: Non- GFR Calc Total Iron Binding Capacity 285 ug/dL 250-450 [facility] Work Phone: Platelets bldon 10-02-2021 Platelets (Bld) [#/Vol] 231 10*3/uL 150-450 [facility] Work Phone: [phone] Serum or plasma albumin ash urement (mass/volume)on 10-02-2021 Albumin [Mass/Vol] 3.5 g/dL 3.2-5.0 [facility] Work Phone: Serum or plasma albumin/glob ulin mass ratioon 10-02-2021 Albumin/Globulin [Mass ratio] 1.1 {ratio} 0.9-2.4 [facility] Work Phone: [phone] Serum or plasma calcium ash urement (mass/volume)on 10-02-2021 Calcium [Mass/Vol] 8.7 mg/dL 8.5-10.1 [facility] Work Phone: [phone] Serum or plasma cholesterol in HDL measurement (mass/volume)on 10-02-2021 Cholesterol in HDL [Mass/Vol] 57 mg/dL >40 [facility] Work Phone: Comment on above: The drugs N-Acetylcy steine and Metamizole may falsely depress this assay. Reference Range HDL <40 mg/dL Low HDL Cholesterol HDL >or= 60 mg/dL High HDL Cholesterol Serum or plasma cholesterol in VLDL measurement (mass/volume)on 10-02-2021 Cholesterol in VLDL [Mass/Vol] 11 mg/dL 5-40 [facility] Work Phone: [phone] Serum or plasma creatinine m easurement (mass/volume)on 10-02-2021 Creatinine [Mass/Vol] 0.70 mg/dL 0.70-1.30 [facility] Work Phone: Comment on above: The validity of the calculated GFR & GFRAA in patients over 70 years has not been determined. Clinical correlation is essential. Serum or plasma ferritin elham surement (mass/volume)on 10-02-2021 Ferritin [Mass/Vol] 290 ng/mL 26-388 [facility] Work Phone: Serum or plasma iron saturat ion measurement (mass fraction)on 10-02-2021 Iron saturation [Mass fraction] 36.5 % 15.0-55.0 [facility] Work Phone: [phone] Serum or plasma low density lipoprotein (LDL) cholesterol measurement (mass/volume)on 10-02-2021 Cholesterol in LDL [Mass/Vol] 64 mg/dL 0-130 [facility] Work Phone: [phone] Serum or plasma urea nitroge n measurement (mass/volume)on 10-02-2021 Urea nitrogen [Mass/Vol] 22 mg/dL 7-18 [facility] Work Phone: [phone] Thin prep Papanicolaou smear with manual screeningon 10-02-2021 Thin prep Papanicolaou smear with manual screening 29 U/L 15-37 [facility] Work Phone: [phone] Thin prep Papanicolaou smear with manual screening 6 5-15 [facility] Work Phone: Whole blood hemoglobin A1c/t otal hemoglobin ratio (mass fraction)on 10-02-2021 HbA1c (Bld) [Mass fraction] 6.0 % 3.8-5.6 [facility] Work Phone: Comment on above: Normal < 5.7 % Predi abetic 5.7 - 6.4 % Diabetic >or= 6.5 % Please note range changes. Vital Signs Date Time Vital Sign Value Performing Clinician Faci lity 07-23-2024 11:37-0400 Body temperature 98.2 [degF] Dr. Davis Armstrong MD Work Phone: [phone] [place] [address] 07-23-2024 11:37-0400 Diastolic blood pressure 78 mm[Hg] Dr. Davis Armstrong MD Work Phone: [phone] [place] [address] 07-23-2024 11:37-0400 Heart rate 80 /min Dr. Davis Armstrong MD Work Phone: [phone] [place] [address] 07-23-2024 11:37-0400 Respiratory rate 18 /min Dr. Davis Armstrong MD Work Phone: [phone] [place] [address] 07-23-2024 11:37-0400 SaO2% (BldA) [Mass fraction] 97 % Dr. Davis Armstrong MD Work Phone: [facility] 07-23-2024 11:37-0400 Systolic blood pressure 148 mm[Hg] Dr. Davis Armstrong MD Work Phone: [facility] 07-23-2024 07:05-0400 Body height 170.[address] Davis Armstrong MD Work Phone: [facility] 07-23-2024 07:05-0400 Body mass index (BMI) [Ratio] 31.6 kg/m2 Dr. Davis Armstrong MD Work Phone: [facility] 07-23-2024 07:05-0400 Body weight 91.[address] Davis Armstrong MD Work Phone: [phone] [place] [address] 12-27-2022 11:00-0400 Diastolic blood pressure 86 mm[Hg] [facility] 12-27-2022 11:00-0400 Systolic blood pressure 141 mm[Hg] [facility] 12-27-2022 09:36-0400 Heart rate 92 /min [facility] 12-27-2022 09:36-0400 Respiratory rate 26 /min [facility] 12-27-2022 09:36-0400 SaO2% (BldA) [Mass fraction] 99 % [facility] 12-27-2022 07:36-0400 Body height 170.18 cm [facility] 12-27-2022 07:36-0400 Body mass index (BMI) [Ratio] 31.3 kg/m2 [facility] 12-27-2022 07:36-0400 Body temperature 97.2 [degF] [facility] 12-27-2022 07:36-0400 Body weight 90.71 kg [facility] 01-18-2022 17:03-0400 Body height 170.18 cm [facility] 01-18-2022 17:03-0400 Body mass index (BMI) [Ratio] 30.5 kg/m2 [facility] 01-18-2022 17:03-0400 Body temperature 98.7 [degF] [facility] 01-18-2022 17:03-0400 Body weight 88.45 kg [facility] 01-18-2022 17:03-0400 Diastolic blood pressure 96 mm[Hg] [facility] 01-18-2022 17:03-0400 Heart rate 113 /min [facility] 01-18-2022 17:03-0400 Respiratory rate 18 /min [facility] 01-18-2022 17:03-0400 SaO2% (BldA) [Mass fraction] 94 % [facility] 01-18-2022 17:03-0400 Systolic blood pressure 145 mm[Hg] [facility] 01-18-2022 12:06-0400 Body temperature 98.2 [degF] [facility] 01-18-2022 12:06-0400 Diastolic blood pressure 80 mm[Hg] [facility] 01-18-2022 12:06-0400 Heart rate 77 /min [facility] 01-18-2022 12:06-0400 Respiratory rate 18 /min [facility] 01-18-2022 12:06-0400 SaO2% (BldA) [Mass fraction] 97 % [facility] 01-18-2022 12:06-0400 Systolic blood pressure 142 mm[Hg] [facility] 01-16-2022 18:35-0400 Body mass index (BMI) [Ratio] 30.4 kg/m2 [facility] 01-16-2022 18:35-0400 Body weight 88.3 kg [facility] 01-16-2022 10:27-0400 Body temperature 97 [degF] [facility] 01-16-2022 10:27-0400 Diastolic blood pressure 98 mm[Hg] [facility] 01-16-2022 10:27-0400 Heart rate 51 /min [facility] 01-16-2022 10:27-0400 Respiratory rate 18 /min [facility] 01-16-2022 10:27-0400 SaO2% (BldA) [Mass fraction] 98 % [facility] 01-16-2022 10:27-0400 Systolic blood pressure 142 mm[Hg] [facility] 01-16-2022 06:54-0400 Body height 170.18 cm [facility] Work Phone: 01-16-2022 06:54-0400 Body mass index (BMI) [Ratio] 30.6 kg/m2 [facility] 01-16-2022 06:54-0400 Body weight 88.72 kg [facility] 12-19-2021 13:58-0400 Body temperature 97.2 [degF] [facility] 12-19-2021 13:58-0400 Diastolic blood pressure 82 mm[Hg] [facility] 12-19-2021 13:58-0400 Heart rate 76 /min [facility] 12-19-2021 13:58-0400 Respiratory rate 16 /min [facility] 12-19-2021 13:58-0400 SaO2% (BldA) [Mass fraction] 97 % [facility] 12-19-2021 13:58-0400 Systolic blood pressure 148 mm[Hg] [facility] 12-19-2021 09:10-0400 Body height 170.18 cm [facility] Work Phone: 12-19-2021 09:10-0400 Body mass index (BMI) [Ratio] 29.9 kg/m2 [facility] 12-19-2021 09:10-0400 Body weight 86.63 kg [facility] 12-02-2021 23:08-0400 Diastolic blood pressure 82 mm[Hg] [facility] Work Phone: 12-02-2021 23:08-0400 Heart rate 72 /min [facility] Work Phone: 12-02-2021 23:08-0400 Respiratory rate 18 /min [facility] Work Phone: 12-02-2021 23:08-0400 SaO2% (BldA) [Mass fraction] 100 % [facility] Work Phone: 12-02-2021 23:08-0400 Systolic blood pressure 136 mm[Hg] [facility] Work Phone: 12-02-2021 18:27-0400 Body height 170.18 cm [facility] Work Phone: 12-02-2021 18:27-0400 Body mass index (BMI) [Ratio] 29.7 kg/m2 [facility] Work Phone: 12-02-2021 18:27-0400 Body temperature 97.9 [degF] [facility] Work Phone: 12-02-2021 18:27-0400 Body weight 86.18 kg [facility] Work Phone: 08-25-2021 07:28-0400 Body mass index (BMI) [Ratio] 29.7 kg/m2 [facility] Work Phone: 08-25-2021 07:28-0400 Body temperature 98.1 [degF] [facility] Work Phone: 08-25-2021 07:28-0400 Body weight 86.18 kg [facility] Work Phone: 08-25-2021 07:28-0400 Diastolic blood pressure 93 mm[Hg] [facility] Work Phone: 08-25-2021 07:28-0400 Heart rate 73 /min [facility] Work Phone: 08-25-2021 07:28-0400 Respiratory rate 14 /min [facility] Work Phone: 08-25-2021 07:28-0400 SaO2% (BldA) [Mass fraction] 99 % [facility] Work Phone: 08-25-2021 07:28-0400 Systolic blood pressure 176 mm[Hg] [facility] Work Phone: Encounters Encounter Date Encounter Type Care Provider Facility Start: 07-23-2024 End: 07-23-2024 Emergency department patient visit Dr. Davis Armstrong MD Work Phone: -Emergency Department Work Phone: Start: 05-26-2024 End: 05-26-[address] Davis Armstrong MD Work Phone: [facility] Work Phone: Start: 05-26-2024 End: 05-26-[address] Davis Armstrong MD -Laboratory, [facility] Start: 05-26-2024 End: 05-26-2024 ambulatory Davis Armstrong Facility:[facility] Start: 05-19-2024 End: 05-19-[address] Davis Armstrong MD Work Phone: [facility] Work Phone: Start: 05-19-2024 End: 05-19-[address] Davis Armstrong MD -Laboratory, [facility] Start: 05-19-2024 End: 05-19-2024 ambulatory Davis Armstrong Facility:[facility] Start: 01-14-2024 End: 01-14-2024 ambulatory Davis Armstrong Facility:[facility] Start: 09-10-2023 End: 09-10-2023 ambulatory Davis Armstrong Facility:[facility] Start: 05-08-2023 End: 05-08-2023 ambulatory [facility] Work Phone: Start: 05-08-2023 End: 05-08-2023 Patient encounter procedure [facility]Labor[facility] Work Phone: Start: 01-08-2023 End: 01-08-2023 ambulatory [facility] Work Phone: Start: 01-08-2023 End: 01-08-[facility]23 [facility] Start: 12-27-2022 End: 12-27-2022 Emergency department patient visit [facility]Emergency Department Work Phone: Start: 10-08-2022 End: 10-08-2022 [facility] Start: 04-08-2022 End: 04-08-2022 ambulatory [facility] Work Phone: Start: 04-08-2022 End: 04-08-2022 Patient encounter procedure [facility]Labor[facility], Specimen Start: 03-28-2022 End: 03-28-2022 ambulatory [facility] Work Phone: Start: 03-28-2022 End: 03-28-2022 Patient encounter procedure [facility] Start: 01-18-2022 End: 01-18-2022 Emergency department patient visit [facility]Emergency Department Start: 01-16-2022 End: 01-18-2022 Evaluation and management of inpatient [facility]Medical Surgical 3 Start: 01-16-2022 End: 01-16-2022 Admission to same day surgery center [facility] Start: 01-16-2022 End: 01-16-2022 ambulatory [facility] Work Phone: Start: 12-19-2021 End: 12-19-2021 Admission to same day surgery center [facility] Start: 12-19-2021 End: 12-19-2021 ambulatory [facility] Work Phone: Start: 12-18-2021 End: 12-18-2021 ambulatory [facility] Work Phone: Start: 12-18-2021 End: 12-18-2021 Patient encounter procedure [facility] Start: 12-02-2021 End: 12-02-2021 [facility] Start: 10-02-2021 End: 10-02-2021 Patient encounter procedure [facility] Start: 08-25-2021 End: 08-25-2021 Emergency department patient visit [facility] Procedures Date Procedure Procedure Detail Performing [...] Total iron binding c apacity measurement Dr. Davis Armstrong MD Work Phone: Start: 12-27-2022 CT [...] identified in Urine by Culture Urine Culture [facility] Start: 07-23-2024 [facility] Start: 07-23-2024 End: 07-23-2024 [facility] Start: 12-27-2022 [facility] Start: 12-27-2022 [facility] Start: 01-18-2022 Referral to service [facility] Start: 01-18-2022 Patient discharge [facility] Start: 01-17-2022 Incentive spirometry [facility] Start: 01-16-2022 [facility] Start: 01-16-2022 Admission procedure [facility] Start: 01-16-2022 Following clinical pathway protocol [facility] Start: 01-16-2022 Anes transurethral resection of bladder tumor ANESTH BLADDER TUMOR SURG [facility] Start: 01-16-2022 Cystourethroscopy w/dest &/rmvl tumor large CYSTOSCOPY AND TREATMENT [facility] Start: 01-16-2022 Ambulation without limitation [facility] Start: 01-16-2022 Medication education [facility] Start: 01-16-2022 Patient discharge [facility] Start: 01-16-2022 Taking patient vital signs [facility] Start: 01-16-2022 End: 01-17-2022 [facility] Start: 12-19-2021 Anes lithotrp xtrcorp shock wave w/o water bath ANESTH KIDNEY STONE DESTRUCT [facility] Start: 12-19-2021 Cysto w/insert ureteral stent CYSTOSCOPY AND TREATMENT [facility] Start: 12-19-2021 Lithotripsy xtrcorp shock wave FRAGMENTING OF KIDNEY STONE [facility] Start: 12-19-2021 Patient discharge [facility] Start: 12-19-2021 Ambulation without limitation [facility] Start: 12-19-2021 Medication education [facility] Start: 12-19-2021 Taking patient vital signs [facility] Start: 12-19-2021 [facility] Start: 08-25-2021 Simple repair scalp/neck/ax/genit/trunk 2.5cm/< RPR S/N/AX/GEN/TRNK 2.5CM/< [facility] Work Phone: Electrocardiographic procedure [facility] Work Phone: Electrocardiographic procedure [facility] Patient Education [facility] Work Phone: Patient referral [facility] Work Phone: Troponin T.cardiac [Mass/volume] in Serum or Plasma by High sensitivity method [facility] Urine culture [facility] Immunizations Immunization Date Immunization Notes Care Provider Fa chaz 08-25-2021 tetanus toxoid, redu frankie diphtheria toxoid, and acellular pertussis vaccine, adsorbed [facility] Payers Date Payer Category Payer Self-pay [id number] 2021 Medicare [id number] Unknown [employer] [id number] [id number] Unknown [id number] Unknown [id number] Unknown [id number] Unknown [id number] Social History Date Type Detail Facility Start: 12-02-2021 End: 12-27-2022 Tobacco smoking status NHIS Unknown if ever smoked [facility] Start: 12-18-2018 Non-smoker [facility] Start: 1950 Sex Assigned At Male [facility] Start: 12-27-2022 End: 07-23-2024 Tobacco smoking status NHIS Never smoked tobacco (finding) [facility] Start: 05-31-2024 End: 06-02-2024 Sex Male (finding) [facility] Medical Equipment Procedure Code Equipment Code Equipment Origin al Text Equipment Identifier Dates Lithotripsy, [id number]) Polymeric uret eral stent [id number] FDA Start: 12-19-2021 Goals Date Patient Goal Desired Activity /State Functional Status Date Assessment Result Facility 01-18-2022 Functional status Activity Ability Indepe ndent [facility] Work Phone: 01-17-2022 Functional status Ambulates [facility] Work Phone: Mental Status Date Assessment Result Facility 07-23-2024 Cognitive function Level Of Cons ciousness Awake;Alert;Appropriate;Follow s Commands [facility] Work Phone: 12-27-2022 Cognitive function Level Of Cons ciousness Awake;Alert;Appropriate;Follow s Commands [facility] Work Phone: 01-18-2022 Cognitive function Voice/Name [facility] Work Phone: 01-16-2022 Cognitive function Level Of Cons ciousness Awake;Alert;Appropriate;Follow s Commands [facility] Work Phone: 12-19-2021 Cognitive function Touch/Shaking [facility] Work Phone: 12-19-2021 Cognitive function Patient Orien tation Person;Place;Time [facility] Work Phone: Radiology Diagnostic study note 07-23-2024 Note Date & Type Note Facility 07-23-2024 Radiology Diagnostic study note [facility] Imaging Services [address] [place] [address] Chest PA and Lateral MR#: [id number] Acct: [id number] Name: YANET CORRIGAN Rep #: [id number] : 1950 M 74 From: Jaguar Ontiveros MD PCP: Dr. Davis Armstrong MD Status: RE G ER Study:Chest PA and Lateral Date of Exam: 07/23/24 Exam# [id number] Ordering Dr: Osmany Evans DO PROCEDURE: CHEST PA AND LATERAL 07/23/2024 REASON FOR EXAM: COUGH TECHNIQUE: Frontal and lateral views of the chest. COMPARISON: 12/27/2022 FINDINGS: The lungs appear clear. Pulmonary vascularity appears within limits. No pleural effusion. The cardiac and mediastinal contours appear within limits. RAD/Chest PA and Lateral IMPRESSION: No evidence of acute disease. Reading Location: [facility] CC: Dr. Osmany Evans DO; Dr. Davis Armstrong MD ~ Mailing Section Clerk: Signed [facility] Evaluation note Note Date & Type Note Facility Evaluation note No assessment information availa ble [facility] Work Phone: Hospital Discharge instructions Note Date & Type Note Facility Hospital Discharge instructions Ambulatory [id number] Lead EKG [[facility]] Time Frame: 01/16/22, Location: None Selected Additional Instructions Implant Used?: No [facility] Work Phone: Reason for referral (narrative) Note Date & Type Note Facility Reason for referral (narrative) No reason for referral information available [facility] Work Phone: Chief Complaint and Reason for [...] Yes December 02, 2021 6:54pm Power of [employer] No November 6:54pm Advance Directive Response Recorded Date/ Time Living Will No December 12, 2021 10:17am Power of [employer] No November 10:17am Advance Directive Response Recorded Date/ Time Living Will No January 09 2:13pm Power of [employer] No January 09, 2022 2:13pm Advance Directive Response Recorded Date/ Time Living Will Yes January 18 4:22pm Power of [employer] No January 18, 2022 4:22pm Advance Directive Response Recorded Date/ Time Living Will Yes December 27 7:46am Power of [employer] No December 27, 2022 7:46am Advance Directive Response Recorded Date/ Time Living Will Yes December 27 6:46am Power of [employer] No December 27, 2022 6:46am Advance Directive Response Recorded Date/ Time Do you have a Healthcare Power of [employer]? No July 23, 2024 7:21am Summary Purpose [...] section and content) DATE CREATED AUTHOR 07/30/2024 [facility] FOR RECORDS PERTAINING TO PATIENTS WHO ARE [...] BE BASED ON THE PRIMARY CLINICAL RECORDS. [employer] [facility]. provides no warranty or guarantee of the accuracy or completeness of information in this document.
[2024-09-18] MEDS: Lidocaine 1% (20 ml mdv) 20 ML Vial 10 ML INFILT (14:46)
[2024-09-18 14:51] LABS: Hematocrit 37.6 % (40-54); Hemoglobin 12.8 g/dL (13.0-16.5); Immature Granulocytes Count 0.060 X10^3/uL (0.0-0.0); Mean Corp Hgb Conc 34.0 g/dL (32-36); Mean Corpuscular Volume 91.0 fL (80-94); Mean Platelet Vol. 10.5 fl (6.2-12.0); NRBC Flagged by Analyzer 0 % (0-5); Platelet Count 239 K/mm3 (150-450); RBC Distribution Width CV 13.3 % (11.6-14.6); RBC Distribution Width SD 45.1 fl (35.1-43.9); Red Blood Count 4.13 M/mm3 (4.6-6.2); White Blood Count 12.6 K/mm3 (4.4-11.0)
[2024-09-18 15:15] VITALS: BP 132/67; PULSE 107; RESP 18; TEMP 37.3; O2SAT 93
[2024-09-18 15:39] LABS: Anion Gap 11 (5-15); BUN 16 mg/dL (4-19); BUN/Creat Ratio 21.6 RATIO (10-20); Calcium,Total 8.6 mg/dL (7.6-11.0); Carbon Dioxide 20.7 mmol/L (21.0-32.0); Chloride 104 mmol/L (98-108); Estimated Creatinine Clearance 87.91 ml/min (50-250); Glucose 104 mg/dL (70-99); Potassium 4.1 mmol/L (3.3-5.1)
[2024-09-18] MEDS: Cefazolin 1 GM/50 ML BAG IV (16:27)
[2024-09-18 16:32] VITALS: BP 123/75; PULSE 101; RESP 18; TEMP 38.6; O2SAT 95
--- OUTSIDE RECORDS SUMMARY | 2024-09-18 16:41 | XMS RPT_ITS | CCD ---
Author Organization [facility] Care Team Providers Care Athletics Director Name Role Phone Patti SANTIAGO, Dr. Davis Wu Primary Care Provider Patti SANTIAGO, Dr. Davis Wu Attending Provider Patti SANTIAGO, Dr. Davis Wu Referring Provider Dr. Osmany Evans DO Emergency Provider Davis [...] sources) Penicillins Allergy to substance 12-19-2021 Other [facility] (1 source) Penicillins Drug allergy (disorder) 07-23-2024 [facility] Repository Medications Current Medications Medication Drug Class(es) [...] infection level. Enterococcus faecalis Beta Lactamase-Reportable Negative [place] Count 80,000-100,000 GNR [place] Count <1000 Gram negative buffy Ampicillin Islt YOLANDA <=2 Ciprofloxacin Islt YOLANDA >=8 R Gentamicin Synergy Susc Islt SYN-R levoFLOXacin Islt YOLANDA >=8 R Linezolid Islt YOLANDA 2 S Nitrofurantoin Islt YOLANDA <=16 S Streptomycin High Pot Susc Islt SYN-S S Tetracycline Islt YOLANDA >=16 R Vancomycin Islt YOLANDA 1 S Normal [facility] Comment on above: Performed By: #### M 100.2200 #### [facility] Laboratory [address] [place], [address] Absolute lymphocyte countOrd ered By: Osmany Evans on 07-23-2024 Lymphocytes Auto (Unsp spec) [#/Vol] 0.43 10*3/uL Low 0.83-4.51 [facility] Absolute neutrophil countOrd ered By: Osmany Evans on 07-23-2024 Neutrophils (Bld) [#/Vol] 9.3 10*3/uL High 2.0-7.7 [facility] Anion gap in Serum or Plasma Ordered By: Osmany Evans on 07-23-2024 Anion gap [Moles/Vol] 11 mmol/L 5-15 [facility] Automated lymphocyte count a s percentage of total leukocytesOrdered By: Osmany Evans on 07-23-2024 Lymphocytes/100 WBC Auto (Unsp spec) 4.0 % Low 19-41 [facility] BUN/creatinine ratioOrdered By: Osmany Evans on 07-23-2024 Urea nitrogen/Creatinine [Mass ratio] 19.5 mg/mg 10-20 [facility] Basic Metabolic Profile (BMP )on 07-23-2024 BUN/CRE 19.5 RATIO Normal - [facility] Comment on above: Performed By: #### L 500.2500, L100.0100 #### [facility] Laboratory [address] [place], [address] Calcium [Mass/Vol] 9.1 mg/dL Normal 7.6-11.0 [facility] Comment on above: Performed By: #### L 500.2500, L100.0100 #### [facility] Laboratory [address] [place], [address] Chloride [Moles/Vol] 102 mmol/L Normal 98-108 [facility] Comment on above: Performed By: #### L 500.2500, L100.0100 #### [facility] Laboratory [address] [place], [address] CO2 [Moles/Vol] 23.1 mmol/L Normal 21.0-32.0 [facility] Comment on above: Performed By: #### L 500.2500, L100.0100 #### [facility] Laboratory [address] [place], [address] Creatinine [Mass/Vol] 0.95 mg/dL Normal 0.70-1.20 [facility] Comment on above: Performed By: #### L 500.2500, L100.0100 #### [facility] Laboratory [address] [place], [address] ECRCL 74.77 ml/min Normal 50-250 [facility] Comment on above: Performed By: #### L 500.2500, L100.0100 #### [facility] Laboratory [address] [place], [address] GAP 11 Normal 5-15 [facility] Comment on above: Performed By: #### L 500.2500, L100.0100 #### [facility] Laboratory [address] [place], [address] GFR/1.73 sq M.predicted among non-blacks MDRD (S/P/Bld) [Vol rate/Area] 84 mL/min/{1.73_m2} Normal >60 [facility] Comment on above: Result Comment: mL/m in/1.73m2 CKD-EPI Creatinine Equation (2020) Performed By: #### L 500.2500, L100.0100 #### [facility] Laboratory [address] [place], [address] Glucose [Mass/Vol] 100 mg/dL High 70-99 [facility] Comment on above: Performed By: #### L 500.2500, L100.0100 #### [facility] Laboratory [address] [place], [address] Potassium [Moles/Vol] 3.9 mmol/L Normal 3.3-5.1 [facility] Comment on above: Performed By: #### L 500.2500, L100.0100 #### [facility] Laboratory [address] [place], [address] Sodium [Moles/Vol] 136 mmol/L Normal 133-145 [facility] Comment on above: Performed By: #### L 500.2500, L100.0100 #### [facility] Laboratory [address] [place], [address] Urea nitrogen [Mass/Vol] 19 mg/dL Normal 4-19 [facility] Comment on above: Performed By: #### L 500.2500, L100.0100 #### [facility] Laboratory [address] [place], [address] Basophil percentageOrdered B y: Osmany Evans on 07-23-2024 Basophils/100 WBC (Bld) 0.4 % 0-[address] [facility] Bilirubin Test strip Ql (U)O rdered By: Osmany Evans on 07-23-2024 Bilirubin Ql (U) Negative Negative [facility] CBC W/Diff, Automatedon Absolute Lymph 0.43 X10 3/uL Low 0.83-4.51 [facility] Comment on above: Performed By: #### L 500.2500, L100.0100 #### [facility] Laboratory [address] [place], [address] Absolute Neut 9.3 X10 3/uL High 2.0-7.7 [facility] Comment on above: Performed By: #### L 500.2500, L100.0100 #### [facility] Laboratory [address] [place], [address] Basophils/100 WBC (Bld) 0.4 % Normal 0-[address] [facility] Comment on above: Performed By: #### L 500.2500, L100.0100 #### [facility] Laboratory [address] [place], [address] Eosinophils/100 WBC (Bld) 0.2 % Normal 0-5 [facility] Comment on above: Performed By: #### L 500.2500, L100.0100 #### [facility] Laboratory [address] [place], [address] Erythrocyte distribution width (RBC) [Ratio] 13.3 % Normal 11.6-14.6 [facility] Comment on above: Performed By: #### L 500.2500, L100.0100 #### [facility] Laboratory [address] [place], [address] Hematocrit (Bld) [Volume fraction] 40.1 % Normal 40-54 [facility] Comment on above: Performed By: #### L 500.2500, L100.0100 #### [facility] Laboratory [address] [place], [address] Hemoglobin (Bld) [Mass/Vol] 13.8 g/dL Normal 13.0-16.5 [facility] Comment on above: Performed By: #### L 500.2500, L100.0100 #### [facility] Laboratory [address] [place], [address] IG% 0.600 Normal 0.0-0.9 [facility] Comment on above: Result Comment: IG% - Immature Granulocytes (promyelocytes, myelocytes and metamyelocytes) > 1% indicates that a LEFT SHIFT is Present. Performed By: #### L 500.2500, L100.0100 #### [facility] Laboratory [address] [place], [address] Lymphocytes/100 WBC (Bld) 4.0 % Low 19-41 [facility] Comment on above: Performed By: #### L 500.2500, L100.0100 #### [facility] Laboratory [address] [place], [address] MCH (RBC) [Entitic mass] 32.0 pg Normal 27.0-32.0 [facility] Comment on above: Performed By: #### L 500.2500, L100.0100 #### [facility] Laboratory [address] [place], [address] MCHC (RBC) [Mass/Vol] 34.4 g/dL Normal 32-36 [facility] Comment on above: Performed By: #### L 500.2500, L100.0100 #### [facility] Laboratory [address] [place], [address] MCV (RBC) [Entitic vol] 93.0 fL Normal 80-94 [facility] Comment on above: Performed By: #### L 500.2500, L100.0100 #### [facility] Laboratory [address] [place], [address] Monocytes/100 WBC (Bld) 8.2 % Normal 0-10 [facility] Comment on above: Performed By: #### L 500.2500, L100.0100 #### [facility] Laboratory [address] [place], [address] Neutrophils/100 WBC (Bld) 86.6 % High 47-70 [facility] Comment on above: Performed By: #### L 500.2500, L100.0100 #### [facility] Laboratory [address] [place], [address] Nucleated RBC (Bld) [#/Vol] 0 10*3/uL Normal 0-5 [facility] Comment on above: Performed By: #### L 500.2500, L100.0100 #### [facility] Laboratory [address] [place], [address] Platelet mean volume (Bld) [Entitic vol] 10.4 fL Normal 6.2-12.0 [facility] Comment on above: Performed By: #### L 500.2500, L100.0100 #### [facility] Laboratory [address] [place], [address] Platelets (Bld) [#/Vol] 224 10*3/uL Normal 150-450 [facility] Comment on above: Performed By: #### L 500.2500, L100.0100 #### [facility] Laboratory [address] [place], [address] RBC (Bld) [#/Vol] 4.31 10*6/uL Low 4.6-6.2 [facility] Comment on above: Performed By: #### L 500.2500, L100.0100 #### [facility] Laboratory [address] [place], [address] RDW SD 45.2 fl High 35.1-43.9 [facility] Comment on above: Performed By: #### L 500.2500, L100.0100 #### [facility] Laboratory [address] [place], [address] WBC (Bld) [#/Vol] 10.7 10*3/uL Normal 4.4-11.0 [facility] Comment on above: Performed By: #### L 500.2500, L100.0100 #### [facility] Laboratory [address] [place], [address] Carbon dioxide, total [Moles /volume] in Central venous bloodOrdered By: Osmany Evans on 07-23-2024 CO2 [Moles/Vol] 23.1 mmol/L 21.0-32.0 [facility] Chest PA and Lateralon 07-23 Chest PA and Lateral [facility] Imaging Services [address] [place] [address] Chest PA and Lateral MR#: [id number] Acct: [id number] Name: YANET CORRIGAN Rep #: [id number] : 1950 M 74 From: Naveen Ontiveors MD PCP: Dr. Davis Armstrong MD Status: [facility] ER Study: Chest PA and Lateral Date of Exam: 07/23/24 Exam# [id number] Ordering Dr: Osmany Evans DO PROCEDURE: CHEST PA AND LATERAL 07/23/2024 REASON FOR EXAM: COUGH TECHNIQUE: Frontal and lateral views of the chest. COMPARISON: 12/27/2022 FINDINGS: The lungs appear clear. Pulmonary vascularity appears within limits. No pleural effusion. The cardiac and mediastinal contours appear within limits. RAD/Chest PA and Lateral IMPRESSION: No evidence of acute disease. Reading Location: [facility] CC: Dr. Osmany Evans DO; Dr. Davis Armstrong MD Forensic Psychiatrist: Signed Normal [facility] Chloride assayOrdered By: Mark Evans on 07-23-2024 Chloride [Moles/Vol] 102 mmol/L 98-108 [facility] Emergency Department Summary on 07-23-2024 Emergency Department Summary [facility] Medical Records Department [address] [place] [address] Emergency Department Summary 07/23/24 MR#: [id number] Acct: [id number] Name: YANET CORRIGAN Rep #: [id number] : 1950 74 From: Osmany Evans DO PCP: Dr. Davis Armstrong MD Status:[facility] ER Location: ED HPI History of Present [...] and bronchitis (more content not included)... Normal [facility] Eosinophil percentageOrdered By: Osmany Evans on 07-23-2024 Eosinophils/100 WBC (Bld) 0.2 % 0-5 [facility] Erythrocyte distribution wid th ratioOrdered By: Osmany Evans on 07-23-2024 Erythrocyte distribution width (RBC) [Ratio] 13.3 % 11.6-14.6 [facility] Erythrocyte distribution wid th standard deviationOrdered By: Osmany Evans on 07-23-2024 Erythrocyte distribution width (RBC) [Ratio] 45.2 fl High 35.1-43.9 [facility] Glomerular filtration rate ( GFR) estimation/1.73 sq m using serum, plasma, or whole bOrdered By: Osmany Evans on 07-23-2024 GFR/1.73 sq M.predicted among non-blacks MDRD (S/P/Bld) [Vol rate/Area] 84 mL/min/{1.73_m2} >60 [facility] Comment on above: mL/min/1.73m2 CKD-EP I Creatinine Equation (2020) Hematocrit Auto (Bld) [Volum e fraction]Ordered By: Osmany Evans on 07-23-2024 Hematocrit (Bld) [Volume fraction] 40.1 % 40-54 [facility] Hemoglobin measurementOrdere d By: Osmany Evans on 07-23-2024 Hemoglobin (Bld) [Mass/Vol] 13.8 g/dL 13.0-16.5 [facility] Immature granulocytes/100 WB C Auto (Bld)Ordered By: Osmany Evans on 07-23-2024 Immature granulocytes/100 WBC (Bld) 0.600 % 0.0-0.9 [facility] Comment on above: IG% - Immature Granu locytes (promyelocytes, myelocytes and metamyelocytes) > 1% indicates that a LEFT SHIFT is Present. Influenza virus A and B and SARS-CoV-2 (COVID-19) and Respiratory syncytial virus RNAOrdered By: Osmayn Evans on 07-23-2024 SARS-CoV-2 (COVID-19) RNA AMELIA+probe Ql (Unsp spec) [facility] Ketones Test strip Ql (U)Ord ered By: Osmany Evans on 07-23-2024 Ketones Ql (U) 5 mg/dl High Negative [facility] L499.0042on 07-23-2024 Trop T High Sen 33 ng/L High <=22 [facility] Comment on above: Performed By: #### L 500.2500, L100.0100 #### [facility] Laboratory [address] [place] [address]. [place], [address] L499.0043on 05-09-2025 Trop T High Sen Normal <=22 [facility] Comment on above: Result Comment: LUIZ ENT DISCHARGED Performed By: #### L 499.0043 #### [facility] Laboratory [address] [place], [address] L501.4021on 07-23-2024 Trop T High Sen 36 ng/L High <=22 [facility] Comment on above: Performed By: #### L 501.4021 ####[facility] [address] [place], [address] M100.678on 07-23-2024 M100.678 Pending SARS-CoV-2 (COVID 19) Negative INFLUENZA A Negative INFLUENZA B Negative RSV PCR Negative Normal [facility] Comment on above: Performed By: #### L 500.2500, L100.0100 #### [facility] Laboratory [address] [place], [address] MCV (mean corpuscular volume ) determinationOrdered By: Osmany Evans on 07-23-2024 MCV (RBC) [Entitic vol] 93.0 fL 80-[address] [facility] Mean corpuscular hemoglobin (MCH) determinationOrdered By: Osmany Evans on 07-23-2024 MCH (RBC) [Entitic mass] 32.0 pg 27.0-32.0 [facility] Mean corpuscular hemoglobin concentration (MCHC) determinationOrdered By: Osmany Evans on 07-23-2024 MCHC (RBC) [Mass/Vol] 34.4 g/dL 32-36 [facility] Mean platelet volume determi nationOrdered By: Osmany Evans on 07-23-2024 Platelet mean volume (Bld) [Entitic vol] 10.4 fL 6.2-12.0 [facility] Microscopic analysis of urin e for red blood cells (RBC)Ordered By: Osmany Evans on 07-23-2024 Microscopic analysis of urine for red blood cells (RBC) 5-10 SEEN /hpf 0-5 [facility] Monocyte percentageOrdered B y: Osmany Evans on 07-23-2024 Monocytes/100 WBC (Bld) 8.2 % 0-[address] [facility] Mucus LM Ql (Urine sed)Order ed By: Osmany Evans on 07-23-2024 Mucus Ql (Urine sed) 0 SEEN /hpf [facility] Neutrophil percentageOrdered By: Osmany Evans on 07-23-2024 Neutrophils/100 WBC (Bld) 86.6 % High 47-70 [facility] Nitrite Test strip Ql (U)Ord ered By: Osmany Evans on 07-23-2024 Nitrite Ql (U) Negative Negative [facility] Nucleated red blood cell per centageOrdered By: Osmany Evans on 07-23-2024 Nucleated RBC/100 WBC (Bld) [Ratio] 0 % 0-5 [facility] Platelet countOrdered By: Mark Evans on 07-23-2024 Platelets (Bld) [#/Vol] 224 10*3/uL 150-450 [facility] Potassium measurement (mass/ volume)Ordered By: Osmany Evans on 07-23-2024 Potassium (Unsp spec) [Mass/Vol] 3.9 mmol/L 3.3-5.1 [facility] Protein Test strip Ql (U)Ord ered By: Osmany Evans on 07-23-2024 Protein Ql (U) 100 mg/dl High Negative [facility] RBC Auto (Bld) [#/Vol]Ordere d By: Osmany Evans on 07-23-2024 RBC (Bld) [#/Vol] 4.31 10*6/uL Low 4.6-6.2 [facility] Serum creatinine measurement (mass/volume)Ordered By: Osmany Evans on 07-23-2024 Creatinine [Mass/Vol] 0.95 mg/dL 0.70-1.20 [facility] Serum glucose measurement (m ass/volume)Ordered By: Osmany Evans on 07-23-2024 Glucose [Mass/Vol] 100 mg/dL High 70-99 [facility] Serum or plasma calcium ash urement (mass/volume)Ordered By: Osmany Evans on 07-23-2024 Calcium [Mass/Vol] 9.1 mg/dL 7.6-11.0 [facility] Serum or plasma urea nitroge n measurement (mass/volume)Ordered By: Osmany Evans on 07-23-2024 Urea nitrogen [Mass/Vol] 19 mg/dL 4-19 [facility] Sodium levelOrdered By: Osmany Evans on 07-23-2024 Sodium [Moles/Vol] 136 mmol/L 133-145 [facility] Squamous epithelial cells de tection in urine sediment by light microscopyOrdered By: Osmany Evans on 07-23-2024 Epithelial cells.squamous LM Ql (Urine sed) 0 SEEN /hpf 0-5 [facility] Troponin T.cardiac [Mass/vol ume] in Serum or Plasma by High sensitivity methodOrdered By: Osmany Evans on 07-23-2024 Troponin T.cardiac High sensitivity method [Mass/Vol] 33 ng/L High <22 [facility] Troponin T.cardiac High sensitivity method [Mass/Vol] 36 ng/L High <22 [facility] Urinalysis, Completeon 07-23 BACTERIA 1+ /hpf Normal None Seen [facility] Comment on above: Order Comment: CLEAN CATCH Performed By: #### L 500.2500, L100.0100 #### [facility] Laboratory [address] [place], [address] RBC 5-10 SEEN Normal [address] Comment on above: Order Comment: CLEAN CATCH Performed By: #### L 500.2500, L100.0100 #### [facility] Laboratory [address] [place], [address] WBC 10-25 SEEN Normal [address] [place] [address] Comment on above: Order Comment: CLEAN CATCH Performed By: #### L 500.2500, L100.0100 #### [facility] Laboratory [address] [place], [address] EPI,SQUAMOUS 0 SEEN Normal 0-5 [facility] Comment on above: Order Comment: CLEAN CATCH Performed By: #### L 500.2500, L100.0100 #### [facility] Laboratory [address] [place], [address] Mucus Ql (Urine sed) 0 SEEN Normal [facility] Comment on above: Order Comment: CLEAN CATCH Performed By: #### L 500.2500, L100.0100 #### [facility] [place], [address] Urine clarityOrdered By: Olga Evans on 07-23-2024 Clarity (U) Clear Clear [facility] Urine color determinationOrd ered By: Osmany Evans on 07-23-2024 Color (U) Yellow Yellow [facility] Urine glucose detectionOrder ed By: Osmany Evans on 07-23-2024 Glucose Ql (U) Normal mg/dl Normal [facility] Urine leukocyte esterase det ection by dipstickOrdered By: Osmany Evans on 07-23-2024 Leukocyte esterase Test strip Ql (U) 25 /ul High Negative [facility] Urine pHOrdered By: Osmany kerns on 07-23-2024 pH (U) 6.5 [pH] 5.0 - 8.0 [facility] Urine sediment bacteria coun t by microscopy (number/high power field)Ordered By: Osmany Evans on 07-23-2024 Bacteria LM.HPF (Urine sed) [#/Area] 1 /[HPF] None Seen [facility] Urine specific gravity measu rementOrdered By: Osmany Evans on 07-23-2024 Specific gravity (U) [Rel density] 1.010 1.002-1.030 [facility] Urine urobilinogen measureme ntOrdered By: Osmany Evans on 07-23-2024 Urobilinogen Ql (U) 1 mg/dl High Normal [facility] White blood cell (WBC) count Ordered By: Osmany Evans on 07-23-2024 WBC (Bld) [#/Vol] 10.7 10*3/uL 4.4-11.0 [facility] White blood cell countOrdere d By: Osmany Evans on 07-23-2024 White blood cell count 10-25 SEEN /hpf 0-5 [facility] Calculated total iron bindin g capacityOrdered By: Davis Armstrong on 05-26-2024 Total Iron Binding Capacity 299 ug/dL 250-450 [facility] Ferritinon 05-26-2024 Ferritin [Mass/Vol] 273 ng/mL Normal 37-417 [facility] Comment on above: Performed By: #### L 500.2500, L100.0100 #### [facility] Laboratory [address] [place], [address] Iron (Unsp spec) [Mass/Mass] Ordered By: Davis Armstrong on 05-26-2024 Iron [Mass/Vol] 112 ug/dL 65-175 [facility] Iron measurement (mass/mass) Ordered By: Davis Armstrong on 05-26-2024 Iron (Unsp spec) [Mass/Mass] 112 ug/dL 65-175 [facility] Iron saturation [Mass fracti on]Ordered By: Davis Armstrong on 05-26-2024 Iron Saturation 37.0 % 9-55 [facility] Iron+Iron Binding Capacityon 05-26-2024 Iron [Mass/Vol] 112 ug/dL Normal 65-175 [facility] Comment on above: Performed By: #### L 500.2500, L100.0100 #### [facility] Laboratory [address] [place], [address] IRON SATURATION 37.0 Normal 9-55 [facility] Comment on above: Performed By: #### L 500.2500, L100.0100 #### [facility] Laboratory [address] [place], [address] TIBC 299 ug/dL Normal 250-450 [facility] Comment on above: Performed By: #### L 500.2500, L100.0100 #### [facility] Laboratory [address] [place], [address] UIBC 187 ug/dL Low 228-428 [facility] Comment on above: Performed By: #### L 500.2500, L100.0100 #### [facility] Laboratory [address] [place], [address] L503.0106on 05-26-2024 Cobalamin (Vitamin B12) [Mass/Vol] 651 pg/mL Normal 180-914 [facility] Comment on above: Performed By: #### L 500.2500, L100.0100 #### [facility] [place], [address] No Panel InformationOrdered By: Davis Armstrong on 05-26-2024 Unsaturated Iron Binding Capacity 187 ug/dL Low 228-428 [facility] Serum or plasma ferritin elham surement (mass/volume)Ordered By: Davis Armstrong on 05-26-2024 Ferritin [Mass/Vol] 273 ng/mL 37-417 [facility] Serum or plasma iron saturat ion measurement (mass fraction)Ordered By: Davis Armstrong on 05-26-2024 Iron saturation [Mass fraction] 37.0 % 9-55 [facility] Vitamin B12 ser/plasOrdered By: Davis Armstrong on 05-26-2024 Cobalamin (Vitamin B12) [Mass/Vol] 651 pg/mL 180-914 [facility] Absolute lymphocyte countOrd ered By: Davis Armstrong on 05-19-2024 Lymphocytes Auto (Unsp spec) [#/Vol] 0.85 10*3/uL 0.83-4.51 [facility] Absolute neutrophil countOrd ered By: Davis Armstrong on 05-19-2024 Neutrophils (Bld) [#/Vol] 4.0 10*3/uL 2.0-7.7 [facility] Albumin DL <= 20 mg/L (U) [M ass/Vol]Ordered By: Davis Armstrong on 05-19-2024 Urine Random Microalbumin 28.6 mg/L NO RANGE EST. [facility] Anion gap in Serum or Plasma Ordered By: Davis Armstrong on 05-19-2024 Anion gap [Moles/Vol] 13 mmol/L 5-15 [facility] Automated lymphocyte count a s percentage of total leukocytesOrdered By: Davis Armstrong on 05-19-2024 Lymphocytes/100 WBC Auto (Unsp spec) 15.5 % Low 19-41 [facility] BUN/creatinine ratioOrdered By: Davis Armstrong on 05-19-2024 Urea nitrogen/Creatinine [Mass ratio] 25.9 mg/mg High 10-20 [facility] Basophil percentageOrdered B y: Davis Armstrong on 05-19-2024 Basophils/100 WBC (Bld) 1.1 % High 0-[address] [facility] Bilirubin, totalOrdered By: Davis Armstrong on 05-19-2024 Bilirubin [Mass/Vol] 0.61 mg/dL 0.00-1.30 [facility] CBC W/Diff, Automatedon Absolute Lymph 0.85 X10 3/uL Normal 0.83-4.51 [facility] Comment on above: Order Comment: Order Date: 05/19/24Order Info: [id number] - CBCD Performed By: #### L 100.0100, L501.9985, L501.5200, L501.9520, L500.4050, L500.4100 ####[facility] [address] [place], [address] Absolute Neut 4.0 X10 3/uL Normal 2.0-7.7 [facility] Comment on above: Order Comment: Order Date: 05/19/24Order Info: [id number] - CBCD Performed By: #### L 100.0100, L501.9985, L501.5200, L501.9520, L500.4050, L500.4100 ####[facility] [address] [place], [address] Basophils/100 WBC (Bld) 1.1 % High 0-[address] [facility] Comment on above: Order Comment: Order Date: 05/19/24Order Info: [id number] - CBCD Performed By: #### L 100.0100, L501.9985, L501.5200, L501.9520, L500.4050, L500.4100 ####[facility] [address] [place], [address] Eosinophils/100 WBC (Bld) 2.2 % Normal 0-5 [facility] Comment on above: Order Comment: Order Date: 05/19/24Order Info: [id number] - CBCD Performed By: #### L 100.0100, L501.9985, L501.5200, L501.9520, L500.4050, L500.4100 ####[facility] [address] [place], [address] Erythrocyte distribution width (RBC) [Ratio] 12.7 % Normal 11.6-14.6 [facility] Comment on above: Order Comment: Order Date: 05/19/24Order Info: [id number] - CBCD Performed By: #### L 100.0100, L501.9985, L501.5200, L501.9520, L500.4050, L500.4100 ####[facility] [address] [place], [address]( Hematocrit (Bld) [Volume fraction] 38.2 % Low 40-54 [facility] Comment on above: Order Comment: Order Date: 05/19/24Order Info: [id number] - CBCD Performed By: #### L 100.0100, L501.9985, L501.5200, L501.9520, L500.4050, L500.4100 ####[facility] [address] [place], [address] Hemoglobin (Bld) [Mass/Vol] 12.7 g/dL Low 13.0-16.5 [facility] Comment on above: Order Comment: Order Date: 05/19/24Order Info: [id number] - CBCD Performed By: #### L 100.0100, L501.9985, L501.5200, L501.9520, L500.4050, L500.4100 ####[facility] [address] [facility] [place], [address] IG% 0.400 Normal 0.0-0.9 [facility] Comment on above: Order Comment: Order Date: 05/19/24Order Info: [id number] - CBCD Result Comment: IG% - Immature Granulocytes (promyelocytes, myelocytes and metamyelocytes) > 1% indicates that a LEFT SHIFT is Present. Performed By: #### L 100.0100, L501.9985, L501.5200, L501.9520, L500.4050, L500.4100 ####[facility] [address] [place], [address] Lymphocytes/100 WBC (Bld) 15.5 % Low 19-41 [facility] Comment on above: Order Comment: Order Date: 05/19/24Order Info: [id number] - CBCD Performed By: #### L 100.0100, L501.9985, L501.5200, L501.9520, L500.4050, L500.4100 ####[facility] [address] [place], [address] MCH (RBC) [Entitic mass] 30.8 pg Normal 27.0-32.0 [facility] Comment on above: Order Comment: Order Date: 05/19/24Order Info: [id number] - CBCD Performed By: #### L 100.0100, L501.9985, L501.5200, L501.9520, L500.4050, L500.4100 ####[facility] [address] [place], [address] MCHC (RBC) [Mass/Vol] 33.2 g/dL Normal 32-36 [facility] Comment on above: Order Comment: Order Date: 05/19/24Order Info: [id number] - CBCD Performed By: #### L 100.0100, L501.9985, L501.5200, L501.9520, L500.4050, L500.4100 ####[facility] [address] [place], [address] MCV (RBC) [Entitic vol] 92.7 fL Normal 80-[address] [facility] Comment on above: Order Comment: Order Date: 05/19/24Order Info: [id number] - CBCD Performed By: #### L 100.0100, L501.9985, L501.5200, L501.9520, L500.4050, L500.4100 ####[facility] [address] [place], [address] Monocytes/100 WBC (Bld) 7.5 % Normal 0-[address] [facility] Comment on above: Order Comment: Order Date: 05/19/24Order Info: [id number] - CBCD Performed By: #### L 100.0100, L501.9985, L501.5200, L501.9520, L500.4050, L500.4100 ####[facility] [address] [place], [address] Neutrophils/100 WBC (Bld) 73.3 % High 47-70 [facility] Comment on above: Order Comment: Order Date: 05/19/24Order Info: [id number] - CBCD Performed By: #### L 100.0100, L501.9985, L501.5200, L501.9520, L500.4050, L500.4100 ####[facility] [address] [place], [address] Nucleated RBC (Bld) [#/Vol] 0 10*3/uL Normal 0-5 [facility] Comment on above: Order Comment: Order Date: 05/19/24Order Info: [id number] - CBCD Performed By: #### L 100.0100, L501.9985, L501.5200, L501.9520, L500.4050, L500.4100 ####[facility] [address] [place], [address] Platelet mean volume (Bld) [Entitic vol] 10.8 fL Normal 6.2-12.0 [facility] Comment on above: Order Comment: Order Date: 05/19/24Order Info: [id number] - CBCD Performed By: #### L 100.0100, L501.9985, L501.5200, L501.9520, L500.4050, L500.4100 ####[facility] [address] [place], [address] Platelets (Bld) [#/Vol] 256 10*3/uL Normal 150-450 [facility] Comment on above: Order Comment: Order Date: 05/19/24Order Info: [id number] - CBCD Performed By: #### L 100.0100, L501.9985, L501.5200, L501.9520, L500.4050, L500.4100 ####[facility] [address] [place], [address] RBC (Bld) [#/Vol] 4.12 10*6/uL Low 4.6-6.2 [facility] Comment on above: Order Comment: Order Date: 05/19/24Order Info: [id number] - CBCD Performed By: #### L 100.0100, L501.9985, L501.5200, L501.9520, L500.4050, L500.4100 ####[facility] [address] [place], [address] RDW SD 43.1 fl Normal 35.1-43.9 [facility] Comment on above: Order Comment: Order Date: 05/19/24Order Info: [id number] - CBCD Performed By: #### L 100.0100, L501.9985, L501.5200, L501.9520, L500.4050, L500.4100 ####[facility] [address] [place], [address] WBC (Bld) [#/Vol] 5.5 10*3/uL Normal 4.4-11.0 [facility] Comment on above: Order Comment: Order Date: 05/19/24Order Info: [id number] - CBCD Performed By: #### L 100.0100, L501.9985, L501.5200, L501.9520, L500.4050, L500.4100 ####[facility] [address] [place], [place], [id number] Calculated very low density lipoprotein (VLDL) cholesterol measurementOrdered By: Davis Armstrong on 05-19-2024 Calculated very low density lipoprotein (VLDL) cholesterol measurement 10 mg/dL 5-40 [facility] VLDL Cholesterol 10 mg/dL 5-40 [facility] Carbon dioxide, total [Moles /volume] in Central venous bloodOrdered By: Davis Armstrong on 05-19-2024 CO2 [Moles/Vol] 19.7 mmol/L Low 21.0-32.0 [facility] Chloride assayOrdered By: Anuradha Armstrong on 05-19-2024 Chloride [Moles/Vol] 106 mmol/L 98-108 [facility] Comprehensive Metabolic Prof ilon 05-19-2024 Albumin [Mass/Vol] 4.1 g/dL Normal 3.4-4.8 [facility] Comment on above: Order Comment: Order Date: 05/19/24Order Info: [id number] - CMPOrder Info: [id number] - LIPIDOrder Info: - MGOrder Info: 3 - TSH Performed By: #### L 100.0100, L501.9985, L501.5200, L501.9520, L500.4050, L500.4100 ####[facility] [address] [place], [place], [address] Albumin/Globulin [Mass ratio] 1.5 {ratio} Normal 0.9-2.4 [facility] Comment on above: Order Comment: Order Date: 05/19/24Order Info: [id number] - CMPOrder Info: [id number] - LIPIDOrder Info: - MGOrder Info: [id number] - TSH Performed By: #### L 100.0100, L501.9985, L501.5200, L501.9520, L500.4050, L500.4100 ####[facility] [address] [place], [address] ALK PHOS 93 U/L Normal 40-129 [facility] Comment on above: Order Comment: Order Date: 05/19/24Order Info: [id number] - CMPOrder Info: [id number] - LIPIDOrder Info: [id number] - MGOrder Info: [id number] - TSH Performed By: #### L 100.0100, L501.9985, L501.5200, L501.9520, L500.4050, L500.4100 ####[facility] [address] [place], [address] ALT [Catalytic activity/Vol] 16 U/L Normal <=46 [facility] Comment on above: Order Comment: Order Date: 05/19/24Order Info: [id number] - CMPOrder Info: [id number] - LIPIDOrder Info: [id number] - MGOrder Info: [id number] - TSH Performed By: #### L 100.0100, L501.9985, L501.5200, L501.9520, L500.4050, L500.4100 ####[facility] [address] [place], [address] AST [Catalytic activity/Vol] 28 U/L Normal <=37 [facility] Comment on above: Order Comment: Order Date: 05/19/24Order Info: [id number] - CMPOrder Info: [id number] - LIPIDOrder Info: [id number] - MGOrder Info: [id number] - TSH Performed By: #### L 100.0100, L501.9985, L501.5200, L501.9520, L500.4050, L500.4100 ####[facility] [address] [place], [address] Bilirubin [Mass/Vol] 0.61 mg/dL Normal 0.00-1.30 [facility] Comment on above: Order Comment: Order Date: 05/19/24Order Info: [id number] - CMPOrder Info: [id number] - LIPIDOrder Info: [id number] - MGOrder Info: [id number] - TSH Performed By: #### L 100.0100, L501.9985, L501.5200, L501.9520, L500.4050, L500.4100 ####[facility] [address] [place], [address] BUN/CRE 25.9 RATIO High 10-20 [facility] Comment on above: Order Comment: Order Date: 05/19/24Order Info: [id number] - CMPOrder Info: [id number] - LIPIDOrder Info: [id number] - MGOrder Info: 3 - TSH Performed By: #### L 100.0100, L501.9985, L501.5200, L501.9520, L500.4050, L500.4100 ####[facility] [address] [place], [address] Calcium [Mass/Vol] 9.0 mg/dL Normal 7.6-11.0 [facility] Comment on above: Order Comment: Order Date: 05/19/24Order Info: [id number] - CMPOrder Info: [id number] - LIPIDOrder Info: - MGOrder Info: [id number] - TSH Performed By: #### L 100.0100, L501.9985, L501.5200, L501.9520, L500.4050, L500.4100 ####[facility] [address] [place], [address] Chloride [Moles/Vol] 106 mmol/L Normal 98-108 [facility] Comment on above: Order Comment: Order Date: 05/19/24Order Info: [id number] - CMPOrder Info: [id number] - LIPIDOrder Info: [id number] - MGOrder Info: [id number] - TSH Performed By: #### L 100.0100, L501.9985, L501.5200, L501.9520, L500.4050, L500.4100 ####[facility] [address] [place], [place], [address] CO2 [Moles/Vol] 19.7 mmol/L Low 21.0-32.0 [facility] Comment on above: Order Comment: Order Date: 05/19/24Order Info: [id number] - CMPOrder Info: [id number] - LIPIDOrder Info: [id number] - MGOrder Info: [id number] - TSH Performed By: #### L 100.0100, L501.9985, L501.5200, L501.9520, L500.4050, L500.4100 ####[facility] [address] [place], [address] Creatinine [Mass/Vol] 0.69 mg/dL Low 0.70-1.20 [facility] Comment on above: Order Comment: Order Date: 05/19/24Order Info: 07-1 - CMPOrder Info: [id number] - LIPIDOrder Info: [id number] - MGOrder Info: [id number] - TSH Performed By: #### L 100.0100, L501.9985, L501.5200, L501.9520, L500.4050, L500.4100 ####[facility] [address] [place], [place], [address] GAP 13 Normal 5-15 [facility] Comment on above: Order Comment: Order Date: 05/19/24Order Info: [id number] - CMPOrder Info: [id number] - LIPIDOrder Info: [id number] - MGOrder Info: [id number] - TSH Performed By: #### L 100.0100, L501.9985, L501.5200, L501.9520, L500.4050, L500.4100 ####[facility] [address] [place], [place], [address] GFR/1.73 sq M.predicted among non-blacks MDRD (S/P/Bld) [Vol rate/Area] 98 mL/min/{1.73_m2} Normal >60 [facility] Comment on above: Order Comment: Order Date: 05/19/24Order Info: [id number] - CMPOrder Info: [id number] - LIPIDOrder Info: [id number] - MGOrder Info: [id number] - TSH Result Comment: mL/m in/1.73m2 CKD-EPI Creatinine Equation (2020) Performed By: #### L 100.0100, L501.9985, L501.5200, L501.9520, L500.4050, L500.4100 ####[facility] [address] [place], [address] Globulin (S) [Mass/Vol] 2.8 g/dL Normal 2.2-4.2 [facility] Comment on above: Order Comment: Order Date: 05/19/24Order Info: [id number] - CMPOrder Info: - LIPIDOrder Info: - MGOrder Info: [id number] - TSH Performed By: #### L 100.0100, L501.9985, L501.5200, L501.9520, L500.4050, L500.4100 ####[facility] [address] [place], [address] Glucose [Mass/Vol] 89 mg/dL Normal 70-99 [facility] Comment on above: Order Comment: Order Date: 05/19/24Order Info: 07- - CMPOrder Info: - LIPIDOrder Info: - MGOrder Info: [id number] - TSH Performed By: #### L 100.0100, L501.9985, L501.5200, L501.9520, L500.4050, L500.4100 ####[facility] [address] [place], [address] Potassium [Moles/Vol] 3.9 mmol/L Normal 3.3-5.1 [facility] Comment on above: Order Comment: Order Date: 05/19/24Order Info: 86- - CMPOrder Info: - LIPIDOrder Info: [id number] - MGOrder Info: [id number] - TSH Performed By: #### L 100.0100, L501.9985, L501.5200, L501.9520, L500.4050, L500.4100 ####[facility] [address] [place], [place], [address] Sodium [Moles/Vol] 139 mmol/L Normal 133-145 [facility] Comment on above: Order Comment: Order Date: 05/19/24Order Info: [id number] - CMPOrder Info: [id number] - LIPIDOrder Info: - MGOrder Info: [id number] - TSH Performed By: #### L 100.0100, L501.9985, L501.5200, L501.9520, L500.4050, L500.4100 ####[facility] [address] [place], [place], [address] T PROT 6.8 g/dL Normal 5.9-8.4 [facility] Comment on above: Order Comment: Order Date: 05/19/24Order Info: [id number] - CMPOrder Info: - LIPIDOrder Info: - MGOrder Info: [id number] - TSH Performed By: #### L 100.0100, L501.9985, L501.5200, L501.9520, L500.4050, L500.4100 ####[facility] [address] [place], [place], [address] Urea nitrogen [Mass/Vol] 18 mg/dL Normal 4-19 [facility] Comment on above: Order Comment: Order Date: 05/19/24Order Info: [id number] - CMPOrder Info: [id number] - LIPIDOrder Info: - MGOrder Info: [id number] - TSH Performed By: #### L 100.0100, L501.9985, L501.5200, L501.9520, L500.4050, L500.4100 ####[facility] [address] [place], [address] Eosinophil percentageOrdered By: Davis Armstrong on 05-19-2024 Eosinophils/100 WBC (Bld) 2.2 % 0-5 [facility] Erythrocyte distribution wid th ratioOrdered By: Davis Armstrong on 05-19-2024 Erythrocyte distribution width (RBC) [Ratio] 12.7 % 11.6-14.6 [facility] Erythrocyte distribution wid th standard deviationOrdered By: Davis Armstrong on 05-19-2024 Erythrocyte distribution width (RBC) [Entitic vol] 43.1 fL 35.1-43.9 [facility] Erythrocyte distribution width (RBC) [Ratio] 43.1 fl 35.1-43.9 [facility] GFR/1.73 sq M.predicted nirmal g non-blacks MDRD (S/P/Bld) [Vol rate/Area]Ordered By: Davis Armstrong on 05-19-2024 Estimated GFR (MDRD) Non-Af Amer 98 >60 [facility] Comment on above: mL/min/1.73m2 CKD-EP I Creatinine Equation (2020) Glomerular filtration rate ( GFR) estimation/1.73 sq m using serum, plasma, or whole bOrdered By: Davis Armstrong on 05-19-2024 GFR/1.73 sq M.predicted among non-blacks MDRD (S/P/Bld) [Vol rate/Area] 98 mL/min/{1.73_m2} >60 [facility] Comment on above: mL/min/1.73m2 CKD-EP I Creatinine Equation (2020) Hematocrit Auto (Bld) [Volum e fraction]Ordered By: Davis Armstrong on 05-19-2024 Hematocrit (Bld) [Volume fraction] 38.2 % Low 40-54 [facility] Hemoglobin A1con 05-19-2024 HbA1c (Bld) [Mass fraction] 6.4 % Normal <=5.6 [facility] Comment on above: Order Comment: Order Date: 05/19/24Order Info: [id number] - A1C Performed By: #### L 100.0100, L501.9985, L501.5200, L501.9520, L500.4050, L500.4100 ####[facility] [address] [place], [address] Hemoglobin A1c percentageOrd ered By: Davis Armstrong on 05-19-2024 HbA1c (Bld) [Mass fraction] 6.4 % >5.7 [facility] Hemoglobin measurementOrdere d By: Davis Armstrong on 05-19-2024 Hemoglobin (Bld) [Mass/Vol] 12.7 g/dL Low 13.0-16.5 [facility] Immature granulocytes/100 WB C Auto (Bld)Ordered By: Davis Armstrong on 05-19-2024 Immature granulocytes/100 WBC (Bld) 0.400 % 0.0-0.9 [facility] Comment on above: IG% - Immature Granu locytes (promyelocytes, myelocytes and metamyelocytes) > 1% indicates that a LEFT SHIFT is Present. LDL calc ser/plasOrdered By: Davis Armstrong on 05-19-2024 Cholesterol in LDL [Mass/Vol] 61 mg/dL [facility] Comment on above: Zbvjhmmrsr=416-630 m g/dL & Higher Dxwt=845 mg/dL or greater LDL Cholesterol, Calculated 61 mg/dL [facility] Comment on above: Kpnaliapuo=886-615 m g/dL & Higher Flgb=850 mg/dL or greater Laboratory - Chemistry and C hemistry - challengeOrdered By: Davis Armstrong on 05-19-2024 AST [Catalytic activity/Vol] 28 U/L <38 [facility] Lipid Profileon 05-19-2024 CHOL:HDL 2.32 Normal [facility] Comment on above: Order Comment: Order Date: 05/19/24Order Info: [id number] - CMPOrder Info: [id number] - LIPIDOrder Info: [id number] - MGOrder Info: [id number] - TSH Performed By: #### L 100.0100, L501.9985, L501.5200, L501.9520, L500.4050, L500.4100 ####[facility] [address] [place], [address] Cholesterol [Mass/Vol] 126 mg/dL Normal <=200 [facility] Comment on above: Order Comment: Order Date: 05/19/24Order Info: [id number] - CMPOrder Info: [id number] - LIPIDOrder Info: [id number] - MGOrder Info: 3 - TSH Result Comment: Chol esterol level, Desirable <200 mg/dL Borderline high cholesterol 200-239 mg/dL High cholesterol >=240 mg/dL Recommendations of the NCEP Adult Treatment Panel for the following risk-cutoff thresholds for the [place] population. Performed By: #### L 100.0100, L501.9985, L501.5200, L501.9520, L500.4050, L500.4100 ####[facility] [address] [place], [address] Cholesterol in HDL [Mass/Vol] 54 mg/dL Normal [facility] Comment on above: Order Comment: Order Date: 05/19/24Order Info: [id number] - CMPOrder Info: [id number] - LIPIDOrder Info: [id number] - MGOrder Info: 3 - TSH Result Comment: [place] Cholesterol Education Program (NCEP) guidelines: <40 mg/dL: Low HDL-cholesterol (major risk factor for CHD) >= 60 mg/dL: High HDL-cholesterol (negative risk factor for CHD) HDL-cholesterol is affected by a number of factors, e.g. smoking, exercise, hormones, sex and age. Performed By: #### L 100.0100, L501.9985, L501.5200, L501.9520, L500.4050, L500.4100 ####[facility] [address] [place], [place], [address]) Cholesterol in LDL [Mass/Vol] 61 mg/dL Normal [facility] Comment on above: Order Comment: Order Date: 05/19/24Order Info: [id number] - CMPOrder Info: [id number] - LIPIDOrder Info: [id number] - MGOrder Info: [id number] - TSH Result Comment: Bord jvcsqn=729-382 mg/dL Higher Hiac=435 mg/dL or greater Performed By: #### L 100.0100, L501.9985, L501.5200, L501.9520, L500.4050, L500.4100 ####[facility] [id number] [place], [address] Cholesterol in VLDL [Mass/Vol] 10 mg/dL Normal 5-40 [facility] Comment on above: Order Comment: Order Date: 05/19/24Order Info: [id number] - CMPOrder Info: [id number] - LIPIDOrder Info: [id number] - MGOrder Info: [id number] - TSH Performed By: #### L 100.0100, L501.9985, L501.5200, L501.9520, L500.4050, L500.4100 ####[facility] [id number] [place], [address] Triglyceride [Mass/Vol] 52 mg/dL Normal [facility] Comment on above: Order Comment: Order Date: 05/19/24Order Info: [id number] - CMPOrder Info: [id number] - LIPIDOrder Info: [id number] - MGOrder Info: [id number] - TSH Result Comment: The drugs N-Acetylcysteine and Metamizole may falsely depress this assay. Normal range: <150 mg/dL Borderline High: 150-199 mg/dL High: 200-499 mg/dL Very High: >500 mg/dL Performed By: #### L 100.0100, L501.9985, L501.5200, L501.9520, L500.4050, L500.4100 ####[facility] [id number] [place], [address] Lymphocytes Auto (Unsp spec) [#/Vol]Ordered By: Davis Armstrong on 05-19-2024 Lymphocytes (Bld) [#/Vol] 0.85 10*3/uL 0.83-4.51 [facility] Lymphocytes/100 WBC Auto (Un sp spec)Ordered By: Davis Armstrong on 05-19-2024 Lymphocytes/100 WBC (Bld) 15.5 % Low 19-41 [facility] MCV (mean corpuscular volume ) determinationOrdered By: Davis Armstrong on 05-19-2024 MCV (RBC) [Entitic vol] 92.7 fL 80-[address] [facility] Magnesiumon 05-19-2024 Magnesium [Mass/Vol] 1.9 mg/dL Normal 1.5-2.2 [facility] Comment on above: Order Comment: Order Date: 05/19/24Order Info: [id number] - CMPOrder Info: [id number] - LIPIDOrder Info: [id number] - MGOrder Info: [id number] - TSH Performed By: #### L 100.0100, L501.9985, L501.5200, L501.9520, L500.4050, L500.4100 ####[facility] [id number] [place], [address] Magnesium (Unsp spec) [Mass/ Vol]Ordered By: Davis Armstrong on 05-19-2024 Magnesium [Mass/Vol] 1.9 mg/dL 1.5-2.2 [facility] Magnesium measurement (mass/ volume)Ordered By: Davis Armstrong on 05-19-2024 Magnesium (Unsp spec) [Mass/Vol] 1.9 mg/dL 1.5-2.2 [facility] Mean corpuscular hemoglobin (MCH) determinationOrdered By: Davis Armstrong on 05-19-2024 MCH (RBC) [Entitic mass] 30.8 pg 27.0-32.0 [facility] Mean corpuscular hemoglobin concentration (MCHC) determinationOrdered By: Davis Armstrong on 05-19-2024 MCHC (RBC) [Mass/Vol] 33.2 g/dL 32-36 [facility] Mean platelet volume determi nationOrdered By: Davis Armstrong on 05-19-2024 Platelet mean volume (Bld) [Entitic vol] 10.8 fL 6.2-12.0 [facility] Microalbumin,Random Urineon 05-19-2024 MICROALBUMIN,UR 28.6 mg/L Normal NO RANGE EST. [facility] Comment on above: Performed By: #### L 502.0500 ####[facility] [id number] [place], [address] Monocyte percentageOrdered B y: Davis Armstrong on 05-19-2024 Monocytes/100 WBC (Bld) 7.5 % 0-[address] [facility] Neutrophil percentageOrdered By: Davis Armstrong on 05-19-2024 Neutrophils/100 WBC (Bld) 73.3 % High 47-70 [facility] Nucleated red blood cell per centageOrdered By: Davis Armstrong on 05-19-2024 Nucleated RBC/100 WBC (Bld) [Ratio] 0 % 0-5 [facility] Platelet countOrdered By: Anuradha Armstrong on 05-19-2024 Platelets (Bld) [#/Vol] 256 10*3/uL 150-450 [facility] Potassium (Unsp spec) [Mass/ Vol]Ordered By: Davis Armstrong on 05-19-2024 Potassium [Moles/Vol] 3.9 mmol/L 3.3-5.1 [facility] Potassium measurement (mass/ volume)Ordered By: Davis Armstrong on 05-19-2024 Potassium (Unsp spec) [Mass/Vol] 3.9 mmol/L 3.3-5.1 [facility] RBC Auto (Bld) [#/Vol]Ordere d By: Davis Armstrong on 05-19-2024 RBC (Bld) [#/Vol] 4.12 10*6/uL Low 4.6-6.2 [facility] Screening total cholesterol/ high density lipoprotein (HDL) cholesterol ratioOrdered By: Davis Armstrong on 05-19-2024 Cholesterol.total/Choles terol in HDL [Mass ratio] 2.32 {ratio} [facility] Serum creatinine measurement (mass/volume)Ordered By: Davis Armstrong on 05-19-2024 Creatinine [Mass/Vol] 0.69 mg/dL Low 0.70-1.20 [facility] Serum globulin measurementOr dered By: Davis Armstrong on 05-19-2024 Globulin (S) [Mass/Vol] 2.8 g/dL 2.2-4.[address] [facility] Serum glucose measurement (m ass/volume)Ordered By: Davis Armstrong on 05-19-2024 Glucose [Mass/Vol] 89 mg/dL 70-99 [facility] Serum or plasma alanine sands otransferase (ALT) measurementOrdered By: Davis Armstrong on 05-19-2024 ALT [Catalytic activity/Vol] 16 U/L <47 [facility] Serum or plasma albumin ash urement (mass/volume)Ordered By: Davis Armstrong on 05-19-2024 Albumin [Mass/Vol] 4.1 g/dL 3.4-4.8 [facility] Serum or plasma albumin/glob ulin mass ratioOrdered By: Davis Armstrong on 05-19-2024 Albumin/Globulin [Mass ratio] 1.5 {ratio} 0.9-2.4 [facility] Serum or plasma alkaline katty sphatase measurementOrdered By: Davis Armstrong on 05-19-2024 ALP [Catalytic activity/Vol] 93 U/L 40-129 [facility] Serum or plasma calcium ash urement (mass/volume)Ordered By: Davis Armstrong on 05-19-2024 Calcium [Mass/Vol] 9.0 mg/dL 7.6-11.0 [facility] Serum or plasma cholesterol in HDL measurement (mass/volume)Ordered By: Davis Armstrong on 05-19-2024 Cholesterol in HDL [Mass/Vol] 54 mg/dL >40 [facility] Comment on above: National Cholesterol Education Program (NCEP) guidelines:<40 mg/dL: Low HDL-cholesterol (major risk factor for CHD)>= 60 mg/dL: High HDL-cholesterol (negative risk factor for CHD)HDL-cholesterol is affected by a number of factors, e.g. smoking, exercise, hormones, sex and age. Serum or plasma cholesterol measurement (mass/volume)Ordered By: Davis Armstrong on 05-19-2024 Cholesterol [Mass/Vol] 126 mg/dL <201 [facility] Comment on above: Cholesterol level, D esirable <200 mg/dLBorderline high cholesterol 200-239 mg/dLHigh cholesterol >=240 mg/dLRecommendations of the NCEP Adult Treatment Panel for the following risk-cutoff thresholds for the [place] population. Serum or plasma urea nitroge n measurement (mass/volume)Ordered By: Davis Armstrong on 05-19-2024 Urea nitrogen [Mass/Vol] 18 mg/dL 4-19 [facility] Sodium levelOrdered By: Davis Armstrong on 05-19-2024 Sodium [Moles/Vol] 139 mmol/L 133-145 [facility] TSH DL <= 0.005 mIU/L QnOrde red By: Davis Armstrong on 05-19-2024 Thyroid Stimulating Hormone (TSH) 2.270 uIU/mL 0.300-4.200 [facility] TSH Qn 2.270 uIU/mL 0.300-4.200 [facility] Thyroid Stim Hormone (TSH)on 05-19-2024 TSH 2.270 uIU/mL Normal 0.300-4.200 [facility] Comment on above: Order Comment: Order Date: 05/19/24Order Info: [id number] - CMPOrder Info: [id number] - LIPIDOrder Info: [id number] - MGOrder Info: [id number] - TSH Performed By: #### L 100.0100, L501.9985, L501.5200, L501.9520, L500.4050, L500.4100 ####[facility] [id number] [facility] [place], [place], [id number] Total proteinOrdered By: Jarek Armstrong on 05-19-2024 Protein [Mass/Vol] 6.8 g/dL 5.9-8.4 [facility] Triglycerides measurementOrd ered By: Davis Armstrong on 05-19-2024 Triglyceride [Mass/Vol] 52 mg/dL <[address] [facility] Comment on above: The drugs N-Acetylcy steine and Metamizole may falsely depress this assay. Normal range: <150 mg/dLBorderline High: 150-199 mg/dLHigh: 200-499 mg/dLVery High: >500 mg/dL Urine albumin measurement wi detection limit of 20 mg/L or less (mass/volume)Ordered By: Davis Armstrong on 05-19-2024 Albumin DL <= 20 mg/L (U) [Mass/Vol] 28.6 mg/L NO RANGE EST. [facility] White blood cell (WBC) count Ordered By: Davis Armstrong on 05-19-2024 WBC (Bld) [#/Vol] 5.5 10*3/uL 4.4-11.0 [facility] PSA,Total - Annual Screenon 01-14-2024 PSA,TOT SCREEN 1.40 ng/mL Normal 0.00-4.00 [facility] Comment on above: Order Comment: Order Date: 01/14/24Order Info: [id number] - PSA Result Comment: This test was performed using the TPSA assay method for the [employer] chemistry system. Values obtained with different assay methods cannot be used interchangably. When changing PSA assays in the course of monitoring a patient, additional sequential testing should be carried out to confirm baseline values. Performed By: #### L 501.9910 ####[facility] [id number] [place], [address] CBC W/Diff, Automatedon 08-16 Absolute Lymph 0.86 X10 3/uL Normal 0.83-4.51 [facility] Comment on above: Order Comment: Order Date: 05/09/23 Order Info: [id number] - CBCD Performed By: #### L 500.4050, L501.9985, L500.4100, L501.5200, L100.0100 #### [facility] Laboratory [address] [place], [address] Absolute Neut 3.8 X10 3/uL Normal 2.0-7.7 [facility] Comment on above: Order Comment: Order Date: 05/09/23 Order Info: [id number] - CBCD Performed By: #### L 500.4050, L501.9985, L500.4100, L501.5200, L100.0100 #### [facility] Laboratory [address] [place], [address] Basophils/100 WBC (Bld) 0.9 % Normal 0-[address] [facility] Comment on above: Order Comment: Order Date: 05/09/23 Order Info: [id number] - CBCD Performed By: #### L 500.4050, L501.9985, L500.4100, L501.5200, L100.0100 #### [facility] Laboratory [address] [place], [address] Eosinophils/100 WBC (Bld) 3.6 % Normal 0-5 [facility] Comment on above: Order Comment: Order Date: 05/09/23 Order Info: [id number] - CBCD Performed By: #### L 500.4050, L501.9985, L500.4100, L501.5200, L100.0100 #### [facility] Laboratory [address] [place], [address] Erythrocyte distribution width (RBC) [Ratio] 12.4 % Normal 11.6-14.6 [facility] Comment on above: Order Comment: Order Date: 05/09/23 Order Info: [id number] - CBCD Performed By: #### L 500.4050, L501.9985, L500.4100, L501.5200, L100.0100 #### [facility] Laboratory [address] [place], [address] Hematocrit (Bld) [Volume fraction] 40.3 % Normal 40-54 [facility] Comment on above: Order Comment: Order Date: 05/09/23 Order Info: [id number] - CBCD Performed By: #### L 500.4050, L501.9985, L500.4100, L501.5200, L100.0100 #### [facility] Laboratory [address] [place], [address] Hemoglobin (Bld) [Mass/Vol] 13.4 g/dL Normal 13.0-16.5 [facility] Comment on above: Order Comment: Order Date: 05/09/23 Order Info: [id number] - CBCD Performed By: #### L 500.4050, L501.9985, L500.4100, L501.5200, L100.0100 #### [facility] Laboratory [address] [place], [address] IG% 0.400 Normal 0.0-0.9 [facility] Comment on above: Order Comment: Order Date: 05/09/23 Order Info: [id number] - CBCD Result Comment: IG% - Immature Granulocytes (promyelocytes, myelocytes and metamyelocytes) > 1% indicates that a LEFT SHIFT is Present. Performed By: #### L 500.4050, L501.9985, L500.4100, L501.5200, L100.0100 #### [facility] Laboratory [address] [place], [address] Lymphocytes/100 WBC (Bld) 16.1 % Low 19-41 [facility] Comment on above: Order Comment: Order Date: 05/09/23 Order Info: [id number] - CBCD Performed By: #### L 500.4050, L501.9985, L500.4100, L501.5200, L100.0100 #### [facility] Laboratory [address] [place], [address] MCH (RBC) [Entitic mass] 30.4 pg Normal 27.0-32.0 [facility] Comment on above: Order Comment: Order Date: 05/09/23 Order Info: [id number] - CBCD Performed By: #### L 500.4050, L501.9985, L500.4100, L501.5200, L100.0100 #### [facility] Laboratory [address] [place], [address] MCHC (RBC) [Mass/Vol] 33.3 g/dL Normal 32-36 [facility] Comment on above: Order Comment: Order Date: 05/09/23 Order Info: [id number] - CBCD Performed By: #### L 500.4050, L501.9985, L500.4100, L501.5200, L100.0100 #### [facility] Laboratory [address] [place], [address] MCV (RBC) [Entitic vol] 91.4 fL Normal 80-[address] [facility] Comment on above: Order Comment: Order Date: 05/09/23 Order Info: [id number] - CBCD Performed By: #### L 500.4050, L501.9985, L500.4100, L501.5200, L100.0100 #### [facility] Laboratory [address] [place], [address] Monocytes/100 WBC (Bld) 8.4 % Normal 0-[address] [facility] Comment on above: Order Comment: Order Date: 05/09/23 Order Info: [id number] - CBCD Performed By: #### L 500.4050, L501.9985, L500.4100, L501.5200, L100.0100 #### [facility] Laboratory [address] [place], [address] Neutrophils/100 WBC (Bld) 70.6 % High 47-70 [facility] Comment on above: Order Comment: Order Date: 05/09/23 Order Info: [id number] - CBCD Performed By: #### L 500.4050, L501.9985, L500.4100, L501.5200, L100.0100 #### [facility] Laboratory [address] [place], [address] Nucleated RBC (Bld) [#/Vol] 0 10*3/uL Normal 0-5 [facility] Comment on above: Order Comment: Order Date: 05/09/23 Order Info: [id number] - CBCD Performed By: #### L 500.4050, L501.9985, L500.4100, L501.5200, L100.0100 #### [facility] Laboratory [address] [place], [address] Platelet mean volume (Bld) [Entitic vol] 10.4 fL Normal 6.2-12.0 [facility] Comment on above: Order Comment: Order Date: 05/09/23 Order Info: [id number] - CBCD Performed By: #### L 500.4050, L501.9985, L500.4100, L501.5200, L100.0100 #### [facility] Laboratory [address] [place], [address] Platelets (Bld) [#/Vol] 245 10*3/uL Normal 150-450 [facility] Comment on above: Order Comment: Order Date: 05/09/23 Order Info: [id number] - CBCD Performed By: #### L 500.4050, L501.9985, L500.4100, L501.5200, L100.0100 #### [facility] Laboratory [address] [place], [address] RBC (Bld) [#/Vol] 4.41 10*6/uL Low 4.6-6.2 [facility] Comment on above: Order Comment: Order Date: 05/09/23 Order Info: [id number] - CBCD Performed By: #### L 500.4050, L501.9985, L500.4100, L501.5200, L100.0100 #### [facility] Laboratory [address] [place], [address] RDW SD 41.7 fl Normal 35.1-43.9 [facility] Comment on above: Order Comment: Order Date: 05/09/23 Order Info: [id number] - CBCD Performed By: #### L 500.4050, L501.9985, L500.4100, L501.5200, L100.0100 #### [facility] Laboratory [address] [place], [address] WBC (Bld) [#/Vol] 5.3 10*3/uL Normal 4.4-11.0 [facility] Comment on above: Order Comment: Order Date: 05/09/23 Order Info: [id number] - CBCD Performed By: #### L 500.4050, L501.9985, L500.4100, L501.5200, L100.0100 #### [facility] Laboratory [address] [place], [address] Comprehensive Metabolic Prof ilon 09-10-2023 Albumin [Mass/Vol] 3.7 g/dL Normal 3.2-5.0 [facility] Comment on above: Order Comment: Order Date: 05/09/23 Order Info: [id number] - CMP Order Info: [id number] - LIPID Order Info: [id number] - MG Performed By: #### L 500.4050, L501.9985, L500.4100, L501.5200, L100.0100 #### [facility] Laboratory [address] [place], [address] Albumin/Globulin [Mass ratio] 1.1 {ratio} Normal 0.9-2.4 [facility] Comment on above: Order Comment: Order Date: 05/09/23 Order Info: [id number] - CMP Order Info: [id number] - LIPID Order Info: [id number] - MG Performed By: #### L 500.4050, L501.9985, L500.4100, L501.5200, L100.0100 #### [facility] Laboratory [address] [place], [address] ALK P 85 U/L Normal 45-117 [facility] Comment on above: Order Comment: Order Date: 05/09/23 Order Info: [id number] - CMP Order Info: [id number] - LIPID Order Info: [id number] - MG Performed By: #### L 500.4050, L501.9985, L500.4100, L501.5200, L100.0100 #### [facility] Laboratory [address] [place], [address] ALT [Catalytic activity/Vol] 18 U/L Normal 16-61 [facility] Comment on above: Order Comment: Order Date: 05/09/23 Order Info: [id number] - CMP Order Info: [id number] - LIPID Order Info: [id number] - MG Performed By: #### L 500.4050, L501.9985, L500.4100, L501.5200, L100.0100 #### [facility] Laboratory [address] [place], [address] AST [Catalytic activity/Vol] 19 U/L Normal 15-37 [facility] Comment on above: Order Comment: Order Date: 05/09/23 Order Info: [id number] - CMP Order Info: - LIPID Order Info: [id number] - MG Performed By: #### L 500.4050, L501.9985, L500.4100, L501.5200, L100.0100 #### [facility] Laboratory [address] [place], [address] Bilirubin [Mass/Vol] 1.00 mg/dL Normal 0.20-1.00 [facility] Comment on above: Order Comment: Order Date: 05/09/23 Order Info: [id number]- - CMP Order Info: - LIPID Order Info: [id number] - MG Result Comment: For patients on eltrombopag therapy, use of Dimension [place] TBIL is not recommended. Performed By: #### L 500.4050, L501.9985, L500.4100, L501.5200, L100.0100 #### [facility] Laboratory [address] [place], [address] BUN/CRE 23.3 RATIO High 10-20 [facility] Comment on above: Order Comment: Order Date: 05/09/23 Order Info: [id number] - CMP Order Info: [id number] - LIPID Order Info: [id number] - MG Performed By: #### L 500.4050, L501.9985, L500.4100, L501.5200, L100.0100 #### [facility] Laboratory [address] [place], [address] CA,Total 9.1 mg/dL Normal 8.5-10.1 [facility] Comment on above: Order Comment: Order Date: 05/09/23 Order Info: [id number] - CMP Order Info: [id number] - LIPID Order Info: [id number] - MG Performed By: #### L 500.4050, L501.9985, L500.4100, L501.5200, L100.0100 #### [facility] Laboratory [address] [place], [address] Chloride [Moles/Vol] 108 mmol/L High 98-107 [facility] Comment on above: Order Comment: Order Date: 05/09/23 Order Info: [id number] - CMP Order Info: [id number] - LIPID Order Info: [id number] - MG Performed By: #### L 500.4050, L501.9985, L500.4100, L501.5200, L100.0100 #### [facility] Laboratory [address] [place], [address] CO2 [Moles/Vol] 23.0 mmol/L Normal 21.0-32.0 [facility] Comment on above: Order Comment: Order Date: 05/09/23 Order Info: [id number]- - CMP Order Info: [id number] - LIPID Order Info: [id number] - MG Performed By: #### L 500.4050, L501.9985, L500.4100, L501.5200, L100.0100 #### [facility] Laboratory [address] [place], [address] Creatinine [Mass/Vol] 0.86 mg/dL Normal 0.70-1.30 [facility] Comment on above: Order Comment: Order Date: 05/09/23 Order Info: [id number] - CMP Order Info: [id number] - LIPID Order Info: [id number] - MG Result Comment: The validity of the calculated GFR GFRAA in patients over 70 years has not been determined. Clinical correlation is essential. Performed By: #### L 500.4050, L501.9985, L500.4100, L501.5200, L100.0100 #### [facility] Laboratory [address] [place], [address] EST GFR - AA 113 mL/min Normal >60 [facility] Comment on above: Order Comment: Order Date: 05/09/23 Order Info: [id number] - CMP Order Info: [id number] - LIPID Order Info: [id number] - MG Result Comment: Afri can [place] GFR Calc Performed By: #### L 500.4050, L501.9985, L500.4100, L501.5200, L100.0100 #### [facility] Laboratory [address] [place], [address] GAP 7 Normal 5-15 [facility] Comment on above: Order Comment: Order Date: 05/09/23 Order Info: [id number] - CMP Order Info: [id number] - LIPID Order Info: [id number] - MG Performed By: #### L 500.4050, L501.9985, L500.4100, L501.5200, L100.0100 #### [facility] [address] [place], [address] GFR/1.73 sq M.predicted among non-blacks MDRD (S/P/Bld) [Vol rate/Area] 93 mL/min/{1.73_m2} Normal >60 [facility] Comment on above: Order Comment: Order Date: 05/09/23 Order Info: [id number] - CMP Order Info: [id number] - LIPID Order Info: [id number] - MG Result Comment: Non- GFR Calc Performed By: #### L 500.4050, L501.9985, L500.4100, L501.5200, L100.0100 #### [facility] Laboratory [address] [place], [address] Globulin (S) [Mass/Vol] 3.5 g/dL Normal 2.2-4.[address] [facility] Comment on above: Order Comment: Order Date: 05/09/23 Order Info: [id number] - CMP Order Info: [id number] - LIPID Order Info: [id number] - MG Performed By: #### L 500.4050, L501.9985, L500.4100, L501.5200, L100.0100 #### [facility] [address] [place], [address] Glucose [Mass/Vol] 105 mg/dL Normal 74-106 [facility] Comment on above: Order Comment: Order Date: 05/09/23 Order Info: [id number]- - CMP Order Info: [id number] - LIPID Order Info: [id number] - MG Result Comment: Fast ing Glucose result from 100 to 125 mg/dL suggests IMPAIRED HOMEOSTASIS per A.D.A. criteria. Performed By: #### L 500.4050, L501.9985, L500.4100, L501.5200, L100.0100 #### [facility] Laboratory [address] [place], [address] Potassium [Moles/Vol] 3.8 mmol/L Normal 3.5-5.1 [facility] Comment on above: Order Comment: Order Date: 05/09/23 Order Info: [id number]- - CMP Order Info: [id number] - LIPID Order Info: [id number] - MG Performed By: #### L 500.4050, L501.9985, L500.4100, L501.5200, L100.0100 #### [facility] [address] [place], [address] Sodium [Moles/Vol] 138 mmol/L Normal 136-145 [facility] Comment on above: Order Comment: Order Date: 05/09/23 Order Info: [id number] - CMP Order Info: [id number] - LIPID Order Info: [id number] - MG Performed By: #### L 500.4050, L501.9985, L500.4100, L501.5200, L100.0100 #### [facility] [address] [place], [address] T PROT 7.2 g/dL Normal 6.4-8.2 [facility] Comment on above: Order Comment: Order Date: 05/09/23 Order Info: [id number] - CMP Order Info: [id number] - LIPID Order Info: [id number] - MG Performed By: #### L 500.4050, L501.9985, L500.4100, L501.5200, L100.0100 #### [facility] [address] [place], [address] Urea nitrogen [Mass/Vol] 20 mg/dL High 7-18 [facility] Comment on above: Order Comment: Order Date: 05/09/23 Order Info: [id number] - CMP Order Info: [id number] - LIPID Order Info: [id number] - MG Performed By: #### L 500.4050, L501.9985, L500.4100, L501.5200, L100.0100 #### [facility] [address] [place], [address] Hemoglobin A1con 09-10-2023 HbA1c (Bld) [Mass fraction] 6.0 % High 3.8-5.6 [facility] Comment on above: Order Comment: Order Date: 05/09/23 Order Info: [id number] - A1C Result Comment: Norm al < 5.7 % Prediabetic 5.7 - 6.4 % Diabetic >or= 6.5 % Please note range changes. Performed By: #### L 500.4050, L501.9985, L500.4100, L501.5200, L100.0100 #### [facility] [address] [place], [address] Lipid Profileon 09-10-2023 Cholesterol [Mass/Vol] 148 mg/dL Normal 200 [facility] Comment on above: Order Comment: Order Date: 05/09/23 Order Info: [id number] - CMP Order Info: [id number] - LIPID Order Info: [id number] - MG Result Comment: <200 mg/dL Desirable 200-240 mg/dL Borderline >240 mg/dL High Risk Performed By: #### L 500.4050, L501.9985, L500.4100, L501.5200, L100.0100 #### [facility] [address] [place], [address] Cholesterol in HDL [Mass/Vol] 60 mg/dL Normal [facility] Comment on above: Order Comment: Order Date: 05/09/23 Order Info: [id number] - CMP Order Info: [id number] - LIPID Order Info: [id number] - MG Result Comment: The drugs N-Acetylcysteine and Metamizole may falsely depress this assay. Reference Range HDL <40 mg/dL Low HDL Cholesterol HDL >or= 60 mg/dL High HDL Cholesterol Performed By: #### L 500.4050, L501.9985, L500.4100, L501.5200, L100.0100 #### [facility] [address] [place], [address] Cholesterol in LDL [Mass/Vol] 74 mg/dL Normal 0-130 [facility] Comment on above: Order Comment: Order Date: 05/09/23 Order Info: [id number] - CMP Order Info: [id number] - LIPID Order Info: [id number] - MG Performed By: #### L 500.4050, L501.9985, L500.4100, L501.5200, L100.0100 #### [facility] [address] [place], [address] Cholesterol in VLDL [Mass/Vol] 14 mg/dL Normal 5-40 [facility] Comment on above: Order Comment: Order Date: 05/09/23 Order Info: [id number] - CMP Order Info: [id number] - LIPID Order Info: [id number] - MG Performed By: #### L 500.4050, L501.9985, L500.4100, L501.5200, L100.0100 #### [facility] [address] [place], [address] Triglyceride [Mass/Vol] 68 mg/dL Normal [facility] Comment on above: Order Comment: Order Date: 05/09/23 Order Info: [id number] - CMP Order Info: [id number] - LIPID Order Info: [id number] - MG Result Comment: The drugs N-Acetylcysteine and Metamizole may falsely depress this assay. Serum Triglycerides Reference Interval Normal <150 mg/dL Borderline high 150 - 199 mg/dL High 200 - 499 mg/dL Very High > or = 500 mg/dL Performed By: #### L 500.4050, L501.9985, L500.4100, L501.5200, L100.0100 #### [facility] [address] [place], [address] Magnesiumon 09-10-2023 Magnesium [Mass/Vol] 2.1 mg/dL Normal 1.6-2.6 [facility] Comment on above: Order Comment: Order Date: 05/09/23 Order Info: [id number] - CMP Order Info: [id number] - LIPID Order Info: [id number] - MG Performed By: #### L 500.4050, L501.9985, L500.4100, L501.5200, L100.0100 #### [facility] [address] [place], [address] Urinalysis, Completeon 09-09 BACTERIA 0 SEEN Normal None Seen [facility] Comment on above: Order Comment: CLEAN CATCH Performed By: #### L 400.0001 ####[facility] [id number] [place], [address] EPI,SQUAMOUS 0 SEEN Normal 0-5 [facility] Comment on above: Order Comment: CLEAN CATCH Performed By: #### L 400.0001 ####[facility] [id number] [place], [address] Mucus Ql (Urine sed) 0 SEEN Normal [facility] Comment on above: Order Comment: CLEAN CATCH Performed By: #### L 400.0001 ####[facility] [id number] [place], [address] RBC 0 SEEN Normal 0-5 [facility] Comment on above: Order Comment: CLEAN CATCH Performed By: #### L 400.0001 ####[facility] [id number] [place], [address] WBC 0 SEEN Normal 0-5 [facility] Comment on above: Order Comment: CLEAN CATCH Performed By: #### L 400.0001 ####[facility] [id number] [place], [place], [id number] Absolute lymphocyte countOrd ered By: Davis Armstrong on 05-08-2023 Lymphocytes Auto (Unsp spec) [#/Vol] 0.83 10*3/uL 0.83-4.51 [facility] Automated lymphocyte count a s percentage of total leukocytesOrdered By: Davis Armstrogn on 05-08-2023 Lymphocytes/100 WBC Auto (Unsp spec) 10.3 % 19-41 [facility] Basophil percentageOrdered B y: Davis Armstrong on 05-08-2023 Basophils/100 WBC (Bld) 0.7 % 0-1 [facility] Bilirubin [Mass/Vol] 1.10 mg/dL 0.20-1.00 [facility] Comment on above: For patients on eltr ombopag therapy, use of Dimension [place] TBIL is not recommended. Chloride [Moles/Vol] 109 mmol/L 98-107 [facility] Cholesterol [Mass/Vol] 139 mg/dL <200 [facility] Comment on above: <200 mg/dL Desirable 200-240 mg/dL Borderline >240 mg/dL High Risk Eosinophils/100 WBC (Bld) 1.1 % 0-5 [facility] Glucose [Mass/Vol] 111 mg/dL 74-106 [facility] Comment on above: Fasting Glucose resu lt from 100 to 125 mg/dL suggests IMPAIRED HOMEOSTASIS per A.D.A. criteria. Hemoglobin (Bld) [Mass/Vol] 13.9 g/dL 13.0-16.5 [facility] Monocytes/100 WBC (Bld) 8.3 % 0-[address] [facility] Neutrophils (Bld) [#/Vol] 6.4 10*3/uL 2.0-7.7 [facility] Neutrophils/100 WBC (Bld) 79.2 % 47-70 [facility] Potassium [Moles/Vol] 3.8 mmol/L 3.5-5.1 [facility] Protein [Mass/Vol] 7.3 g/dL 6.4-8.2 [facility] Sodium [Moles/Vol] 136 mmol/L 136-145 [facility] Triglyceride [Mass/Vol] 93 mg/dL <[address] [facility] Comment on above: The drugs N-Acetylcy steine and Metamizole may falsely depress this assay.Serum Triglycerides Reference Interval Normal <150 mg/dL Borderline high 150 - 199 mg/dL High 200 - 499 mg/dL Very High > or = 500 mg/dL WBC (Bld) [#/Vol] 8.1 10*3/uL 4.4-11.0 [facility] Bilirubin Test strip Ql (U)O rdered By: Davis Armstrong on 05-08-2023 Bilirubin Ql (U) Negative Negative [facility] Determination of erythrocyte mean corpuscular volume (MCV)Ordered By: Davis Armstrong on 05-08-2023 MCV (RBC) [Entitic vol] 91.5 fL 80-[address] [facility] Erythrocyte distribution wid th ratioOrdered By: Davis Armstrong on 05-08-2023 Erythrocyte distribution width (RBC) [Ratio] 12.9 % 11.6-14.6 [facility] Erythrocyte distribution wid th standard deviationOrdered By: Davis Armstrong on 05-08-2023 Erythrocyte distribution width (RBC) [Entitic vol] 43.3 fL 35.1-43.9 [facility] Hematocrit Auto (Bld) [Volum e fraction]Ordered By: Davis Armstrong on 05-08-2023 Hematocrit (Bld) [Volume fraction] 41.0 % 40-54 [facility] Immature granulocytes/100 WB C Auto (Bld)Ordered By: Davis Armstrong on 05-08-2023 Immature granulocytes/100 WBC (Bld) 0.400 % 0.0-0.9 [facility] Comment on above: IG% - Immature Granu locytes (promyelocytes, myelocytes and metamyelocytes) > 1% indicates that a LEFT SHIFT is Present. Ketones Test strip Ql (U)Ord ered By: Davis Armstrong on 05-08-2023 Ketones Ql (U) Negative Negative [facility] Laboratory - Chemistry and C hemistry - challengeOrdered By: Davis Armstrong on 05-08-2023 Albumin/Globulin [Mass ratio] 1.1 {ratio} 0.9-2.4 [facility] ALP [Catalytic activity/Vol] 99 U/L 45-117 [facility] ALT [Catalytic activity/Vol] 18 U/L 16-61 [facility] Cholesterol in HDL [Mass/Vol] 58 mg/dL >40 [facility] Comment on above: The drugs N-Acetylcy steine and Metamizole may falsely depress this assay. Reference Range HDL <40 mg/dL Low HDL Cholesterol HDL >or= 60 mg/dL High HDL Cholesterol Cholesterol in LDL [Mass/Vol] 62 mg/dL 0-130 [facility] CO2 [Moles/Vol] 24.0 mmol/L 21.0-32.0 [facility] Globulin (S) [Mass/Vol] 3.4 g/dL 2.2-4.2 [facility] Magnesium [Mass/Vol] 2.0 mg/dL 1.6-2.6 [facility] Urea nitrogen/Creatinine [Mass ratio] 26.6 mg/mg 10-20 [facility] Laboratory - Hematology and Cell countsOrdered By: Davis Armstrong on 05-08-2023 MCH (RBC) [Entitic mass] 31.0 pg 27.0-32.0 [facility] MCHC (RBC) [Mass/Vol] 33.9 g/dL 32-36 [facility] Nucleated RBC/100 WBC (Bld) [Ratio] 0 % 0-5 [facility] Platelet mean volume (Bld) [Entitic vol] 9.9 fL 6.2-12.0 [facility] Platelets (Bld) [#/Vol] 265 10*3/uL 150-450 [facility] Nitrite Test strip Ql (U)Ord ered By: Davis Armstrong on 05-08-2023 Nitrite Ql (U) Negative Negative [facility] No Panel InformationOrdered By: Davis Armstrong on 05-08-2023 Estimated GFR (MDRD) Amer 139 mL/min >60 [facility] Comment on above: GFR Calc Estimated GFR (MDRD) Non-Af Amer 115 mL/min >60 [facility] Comment on above: Non- GFR Calc VLDL Cholesterol 19 mg/dL 5-40 [facility] Protein Test strip Ql (U)Ord ered By: Davis Armstrong on 05-08-2023 Protein Ql (U) 15 mg/dl Negative [facility] RBC Auto (Bld) [#/Vol]Ordere d By: Davis Armstrong on 05-08-2023 RBC (Bld) [#/Vol] 4.48 10*6/uL 4.6-6.2 [facility] Serum or plasma calcium ash urement (mass/volume)Ordered By: Davis Armstrong on 05-08-2023 Calcium [Mass/Vol] 9.1 mg/dL 8.5-10.1 [facility] Serum or plasma creatinine m easurement (mass/volume)Ordered By: Davis Armstrong on 05-08-2023 Creatinine [Mass/Vol] 0.71 mg/dL 0.70-1.30 [facility] Comment on above: The validity of the calculated GFR & GFRAA in patients over 70 years has not been determined. Clinical correlation is essential. Serum or plasma thyroid stim ulating hormone (TSH) measurement (units/volume)Ordered By: Davis Armstrong on 05-08-2023 TSH Qn 2.31 uIU/mL 0.358-3.74 [facility] Serum or plasma urea nitroge n measurement (mass/volume)Ordered By: Davis Armstrong on 05-08-2023 Urea nitrogen [Mass/Vol] 19 mg/dL 7-18 [facility] Thin prep Papanicolaou smear with manual screeningOrdered By: Davis Armstrong on 05-08-2023 Thin prep Papanicolaou smear with manual screening 3.9 g/dL 3.2-5.0 [facility] Thin prep Papanicolaou smear with manual screening 17 U/L 15-37 [facility] Thin prep Papanicolaou smear with manual screening 3 5-15 [facility] Urine blood detectionOrdered By: Davis Armstrong on 05-08-2023 RBC Ql (U) 10 /ul Negative [facility] Urine clarityOrdered By: Jarek Armstrong on 05-08-2023 Clarity (U) Clear Clear [facility] Urine color determinationOrd ered By: Davis Armstrong on 05-08-2023 Color (U) Straw Yellow [facility] Urine glucose detectionOrder ed By: Davis Armstrong on 05-08-2023 Glucose Ql (U) Normal mg/dl Normal [facility] Urine leukocyte esterase det ection by dipstickOrdered By: Davis Armstrong on 05-08-2023 Leukocyte esterase Test strip Ql (U) Negative Negative [facility] Urine pHOrdered By: Davis waterman on 05-08-2023 pH (U) 6.0 [pH] 5.0 - 8.0 [facility] Urine specific gravity measu rementOrdered By: Davis Armstrong on 05-08-2023 Specific gravity (U) [Rel density] 1.015 1.002-1.030 [facility] Urine urobilinogen measureme ntOrdered By: Davis Armstrong on 05-08-2023 Urobilinogen Ql (U) Normal mg/dl Normal [facility] Whole blood hemoglobin A1c/t otal hemoglobin ratio (mass fraction)Ordered By: Davis Armstrong on 05-08-2023 HbA1c (Bld) [Mass fraction] 6.3 % 3.8-5.6 [facility] Comment on above: Normal < 5.7 % Predi abetic 5.7 - 6.4 % Diabetic >or= 6.5 % Please note range changes. No Panel InformationOrdered By: Davis Armstrong on 01-08-2023 Prostate Specific Antigen Screen 1.48 ng/mL 0.00-4.00 [facility] Comment on above: This test was perfor med using the TPSA assay method [facility] the[facility]. Values obtained with differentassay methods cannot be used interchangably.When changing PSA assays in the course of monitoring apatient, additional sequential testing should be carriedout to confirm baseline values. Absolute lymphocyte countOrd ered By: Dane Sterling on 12-27-2022 Lymphocytes Auto (Unsp spec) [#/Vol] 0.82 10*3/uL 0.83-4.51 [facility] Basophil percentageOrdered B y: Dane Sterling on 12-27-2022 Basophils/100 WBC (Bld) 1.1 % 0-[address] [facility] Chloride [Moles/Vol] 108 mmol/L 98-107 [facility] Eosinophils/100 WBC (Bld) 4.0 % 0-5 [facility] Glucose [Mass/Vol] 108 mg/dL 74-106 [facility] Comment on above: Fasting Glucose resu lt from 100 to 125 mg/dL suggests IMPAIRED HOMEOSTASIS per A.D.A. criteria. Neutrophils (Bld) [#/Vol] 3.6 10*3/uL 2.0-7.7 [facility] Neutrophils/100 WBC (Bld) 68.5 % 47-70 [facility] Potassium [Moles/Vol] 3.4 mmol/L 3.5-5.1 [facility] Sodium [Moles/Vol] 138 mmol/L 136-145 [facility] WBC (Bld) [#/Vol] 5.2 10*3/uL 4.4-11.0 [facility] Blood erythrocytes count (nu mber/volume)Ordered By: Dane Sterling on 12-27-2022 RBC (Bld) [#/Vol] 4.41 10*6/uL 4.6-6.2 [facility] Blood hemoglobin measurement (mass/volume)Ordered By: Dane Sterling on 12-27-2022 Hemoglobin (Bld) [Mass/Vol] 13.5 g/dL 13.0-16.5 [facility] Blood lymphocytes/100 leukoc ytesOrdered By: Dane Sterling on 12-27-2022 Lymphocytes/100 WBC (Bld) 15.7 % 19-41 [facility] Blood monocytes/100 leukocyt esOrdered By: Dane Sterling on 12-27-2022 Monocytes/100 WBC (Bld) 10.3 % 0-[address] [facility] Blood platelet mean volumeOr dered By: Dane Sterling on 12-27-2022 Platelet mean volume (Bld) [Entitic vol] 10.1 fL 6.2-12.0 [facility] Determination of erythrocyte mean corpuscular volume (MCV)Ordered By: Dane Sterling on 12-27-2022 MCV (RBC) [Entitic vol] 92.7 fL 80-[address] [facility] Hematocrit Auto (Bld) [Volum e fraction]Ordered By: Dane Sterling on 12-27-2022 Hematocrit (Bld) [Volume fraction] 40.9 % 40-54 [facility] Laboratory - Chemistry and C hemistry - challengeOrdered By: Dane Sterling on 12-27-2022 CO2 [Moles/Vol] 27.0 mmol/L 21.0-32.0 [facility] Urea nitrogen/Creatinine [Mass ratio] 23.6 mg/mg 10-20 [facility] Laboratory - Hematology and Cell countsOrdered By: Dane Sterling on 12-27-2022 Erythrocyte distribution width (RBC) [Entitic vol] 42.6 fL 35.1-43.9 [facility] Erythrocyte distribution width (RBC) [Ratio] 12.5 % 11.6-14.6 [facility] Immature granulocytes/100 WBC (Bld) 0.400 % 0.0-0.9 [facility] Comment on above: IG% - Immature Granu locytes (promyelocytes, myelocytes and metamyelocytes) > 1% indicates that a LEFT SHIFT is Present. MCH (RBC) [Entitic mass] 30.6 pg 27.0-32.0 [facility] Nucleated RBC/100 WBC (Bld) [Ratio] 0 % 0-5 [facility] MCHC Auto (RBC) [Mass/Vol]Or dered By: Dane Sterling on 12-27-2022 MCHC (RBC) [Mass/Vol] 33.0 g/dL 32-36 [facility] No Panel InformationOrdered By: Dane Sterling on 12-27-2022 D-Dimer Quantitative (PE/DVT) 0.56 FEU/ug/m 0.27-0.49 [facility] Comment on above: D-Dimer ELEVATED (>0 .49): Additional studies and clinicalassessments are indicated to conclude diagnosis of:Deep Vein Thrombosis (DVT) or Pulmonary Embolism (PE)CRITICAL VALUE VERIFIED. CALLED TO TRAM GRANADOS (ER)12/27/22 0857 [address] [place].RESULTS READ BACK BY SAME. Estimated Creatinine Clearance Calc 79.18 ml/min [facility] Estimated GFR (MDRD) Amer 121 mL/min >60 [facility] Comment on above: GFR Calc Estimated GFR (MDRD) Non-Af Amer 100 mL/min >60 [facility] Comment on above: Non- GFR Calc Troponin I High Sensitivity 8 pg/mL 3.0-78.0 [facility] Comment on above: Please Note: New Candie t Units and Gender Specific Reference Ranges. For more information see Policy Stat Procedure [place] High Sensitivity Troponin (TNIH) and attachments. Platelets bldOrdered By: Cody Sterling on 12-27-2022 Platelets (Bld) [#/Vol] 235 10*3/uL 150-450 [facility] Serum or plasma calcium ash urement (mass/volume)Ordered By: Dane Sterling on 12-27-2022 Calcium [Mass/Vol] 8.6 mg/dL 8.5-10.1 [facility] Serum or plasma creatinine m easurement (mass/volume)Ordered By: Dane Sterling on 12-27-2022 Creatinine [Mass/Vol] 0.80 mg/dL 0.70-1.30 [facility] Comment on above: The validity of the calculated GFR & GFRAA in patients over 70 years has not been determined. Clinical correlation is essential. Serum or plasma urea nitroge n measurement (mass/volume)Ordered By: Dane Sterling on 12-27-2022 Urea nitrogen [Mass/Vol] 19 mg/dL 7-18 [facility] Thin prep Papanicolaou smear with manual screeningOrdered By: Dane Sterling on 12-27-2022 Thin prep Papanicolaou smear with manual screening 3 5-15 [facility] Absolute lymphocyte countOrd ered By: Davis Armstrong on 10-08-2022 Lymphocytes Auto (Unsp spec) [#/Vol] 0.65 10*3/uL 0.83-4.51 [facility] Basophil percentageOrdered B y: Davis Armstrong on 10-08-2022 Basophil percentage 0 SEEN /hpf 0-5 [facility] Basophils/100 WBC (Bld) 0.8 % 0-[address] [facility] Bilirubin [Mass/Vol] 0.90 mg/dL 0.20-1.00 [facility] Comment on above: For patients on eltr ombopag therapy, use of Dimension [place] TBIL is not recommended. Chloride [Moles/Vol] 109 mmol/L 98-107 [facility] Cholesterol [Mass/Vol] 136 mg/dL <200 [facility] Comment on above: <200 mg/dL Desirable 200-240 mg/dL Borderline >240 mg/dL High Risk Eosinophils/100 WBC (Bld) 1.6 % 0-5 [facility] Glucose [Mass/Vol] 103 mg/dL 74-106 [facility] Comment on above: Fasting Glucose resu lt from 100 to 125 mg/dL suggests IMPAIRED HOMEOSTASIS per A.D.A. criteria. Neutrophils (Bld) [#/Vol] 3.7 10*3/uL 2.0-7.7 [facility] Neutrophils/100 WBC (Bld) 75.3 % 47-70 [facility] Potassium [Moles/Vol] 3.6 mmol/L 3.5-5.1 [facility] Protein [Mass/Vol] 7.2 g/dL 6.4-8.2 [facility] Sodium [Moles/Vol] 138 mmol/L 136-145 [facility] Triglyceride [Mass/Vol] 65 mg/dL <199 [facility] Comment on above: The drugs N-Acetylcy steine and Metamizole may falsely depress this assay.Serum Triglycerides Reference Interval Normal <150 mg/dL Borderline high 150 - 199 mg/dL High 200 - 499 mg/dL Very High > or = 500 mg/dL WBC (Bld) [#/Vol] 4.9 10*3/uL 4.4-11.0 [facility] Bilirubin Test strip Ql (U)O rdered By: Davis Armstrong on 10-08-2022 Bilirubin Ql (U) Negative Negative [facility] Blood erythrocytes count (nu mber/volume)Ordered By: Davis Armstrong on 10-08-2022 RBC (Bld) [#/Vol] 4.49 10*6/uL 4.6-6.2 [facility] Blood hemoglobin measurement (mass/volume)Ordered By: Davis Armstrong on 10-08-2022 Hemoglobin (Bld) [Mass/Vol] 13.8 g/dL 13.0-16.5 [facility] Blood lymphocytes/100 leukoc ytesOrdered By: Davis Armstrong on 10-08-2022 Lymphocytes/100 WBC (Bld) 13.2 % 19-41 [facility] Blood monocytes/100 leukocyt esOrdered By: Davis Armstrong on 10-08-2022 Monocytes/100 WBC (Bld) 8.9 % 0-[address] [facility] Blood platelet mean volumeOr dered By: Davis Armstrong on 10-08-2022 Platelet mean volume (Bld) [Entitic vol] 10.9 fL 6.2-12.0 [facility] Determination of erythrocyte mean corpuscular volume (MCV)Ordered By: Davis Armstrong on 10-08-2022 MCV (RBC) [Entitic vol] 92.2 fL 80-[address] [facility] Hematocrit Auto (Bld) [Volum e fraction]Ordered By: Davis Armstrong on 10-08-2022 Hematocrit (Bld) [Volume fraction] 41.4 % 40-54 [facility] Iron measurement (mass/mass) Ordered By: Davis Armstrong on 10-08-2022 Iron (Unsp spec) [Mass/Mass] 83 ug/dL 65-175 [facility] Ketones Test strip Ql (U)Ord ered By: Davis Armstrong on 10-08-2022 Ketones Ql (U) Negative Negative [facility] Laboratory - Chemistry and C hemistry - challengeOrdered By: Davis Armstrong on 10-08-2022 ALP [Catalytic activity/Vol] 89 U/L 45-117 [facility] ALT [Catalytic activity/Vol] 20 U/L 16-61 [facility] CO2 [Moles/Vol] 24.0 mmol/L 21.0-32.0 [facility] Cobalamin (Vitamin B12) [Mass/Vol] 393 pg/mL 211-911 [facility] Globulin (S) [Mass/Vol] 3.4 g/dL 2.2-4.[address] [facility] Urea nitrogen/Creatinine [Mass ratio] 24.4 mg/mg 10-20 [facility] Laboratory - Hematology and Cell countsOrdered By: Davis Armstrong on 10-08-2022 Erythrocyte distribution width (RBC) [Entitic vol] 42.4 fL 35.1-43.9 [facility] Erythrocyte distribution width (RBC) [Ratio] 12.4 % 11.6-14.6 [facility] Immature granulocytes/100 WBC (Bld) 0.200 % 0.0-0.9 [facility] Comment on above: IG% - Immature Granu locytes (promyelocytes, myelocytes and metamyelocytes) > 1% indicates that a LEFT SHIFT is Present. MCH (RBC) [Entitic mass] 30.7 pg 27.0-32.0 [facility] Nucleated RBC/100 WBC (Bld) [Ratio] 0 % 0-5 [facility] MCHC Auto (RBC) [Mass/Vol]Or dered By: Davis Armstrong on 10-08-2022 MCHC (RBC) [Mass/Vol] 33.3 g/dL 32-36 [facility] Mucus LM Ql (Urine sed)Order ed By: Davis Armstrong on 10-08-2022 Mucus Ql (Urine sed) 0 SEEN /hpf [facility] Nitrite Test strip Ql (U)Ord ered By: Davis Armstrong on 10-08-2022 Nitrite Ql (U) Negative Negative [facility] No Panel InformationOrdered By: Davis Armstrong on 10-08-2022 Estimated GFR (MDRD) Amer 154 mL/min >60 [facility] Comment on above: GFR Calc Estimated GFR (MDRD) Non-Af Amer 127 mL/min >60 [facility] Comment on above: Non- GFR Calc Thyroid Stimulating Hormone (TSH) 2.06 uIU/mL 0.358-3.74 [facility] Total Iron Binding Capacity 349 ug/dL 250-450 [facility] Platelets bldOrdered By: Jarek Armstrong on 10-08-2022 Platelets (Bld) [#/Vol] 213 10*3/uL 150-450 [facility] Protein Test strip Ql (U)Ord ered By: Davis Armstrong on 10-08-2022 Protein Ql (U) Negative Negative [facility] Serum or plasma albumin ash urement (mass/volume)Ordered By: Davis Armstrong on 10-08-2022 Albumin [Mass/Vol] 3.8 g/dL 3.2-5.0 [facility] Serum or plasma albumin/glob ulin mass ratioOrdered By: Davis Armstrong on 10-08-2022 Albumin/Globulin [Mass ratio] 1.1 {ratio} 0.9-2.4 [facility] Serum or plasma calcium ash urement (mass/volume)Ordered By: Davis Armstrong on 10-08-2022 Calcium [Mass/Vol] 8.8 mg/dL 8.5-10.1 [facility] Serum or plasma cholesterol in HDL measurement (mass/volume)Ordered By: Davis Armstrong on 10-08-2022 Cholesterol in HDL [Mass/Vol] 58 mg/dL >40 [facility] Comment on above: The drugs N-Acetylcy steine and Metamizole may falsely depress this assay. Reference Range HDL <40 mg/dL Low HDL Cholesterol HDL >or= 60 mg/dL High HDL Cholesterol Serum or plasma cholesterol in VLDL measurement (mass/volume)Ordered By: Davis Armstrong on 10-08-2022 Cholesterol in VLDL [Mass/Vol] 13 mg/dL 5-40 [facility] Serum or plasma creatinine m easurement (mass/volume)Ordered By: Davis Armstrong on 10-08-2022 Creatinine [Mass/Vol] 0.66 mg/dL 0.70-1.30 [facility] Comment on above: The validity of the calculated GFR & GFRAA in patients over 70 years has not been determined. Clinical correlation is essential. Serum or plasma ferritin elham surement (mass/volume)Ordered By: Davis Armstrong on 10-08-2022 Ferritin [Mass/Vol] 187 ng/mL 26-388 [facility] Serum or plasma folate measu rement (mass/volume)Ordered By: Davis Armstrong on 10-08-2022 Folate [Mass/Vol] 10.00 ng/mL 3.1-55.4 [facility] Serum or plasma low density lipoprotein (LDL) cholesterol measurement (mass/volume)Ordered By: Davis Armstrong on 10-08-2022 Cholesterol in LDL [Mass/Vol] 65 mg/dL 0-130 [facility] Serum or plasma urea nitroge n measurement (mass/volume)Ordered By: Davis Armstrong on 10-08-2022 Urea nitrogen [Mass/Vol] 16 mg/dL 7-18 [facility] Squamous epithelial cells de tection in urine sediment by light microscopyOrdered By: Davis Armstrong on 10-08-2022 Epithelial cells.squamous LM Ql (Urine sed) 0 SEEN /hpf 0-5 [facility] Thin prep Papanicolaou smear with manual screeningOrdered By: Davis Armstrong on 10-08-2022 Thin prep Papanicolaou smear with manual screening 24 U/L 15-37 [facility] Thin prep Papanicolaou smear with manual screening 5 5-15 [facility] Urine blood detectionOrdered By: Davis Armstrong on 10-08-2022 RBC Ql (U) Negative Negative [facility] RBC Ql (U) 0 SEEN /hpf 0-5 [facility] Urine clarityOrdered By: Jarek Armstrong on 10-08-2022 Clarity (U) Clear Clear [facility] Urine color determinationOrd ered By: Davis Armstrong on 10-08-2022 Color (U) Straw Yellow [facility] Urine glucose detectionOrder ed By: Davis Armstrong on 10-08-2022 Glucose Ql (U) Normal mg/dl Normal [facility] Urine leukocyte esterase det ection by dipstickOrdered By: Davis Armstrong on 10-08-2022 Leukocyte esterase Test strip Ql (U) Negative Negative [facility] Urine pHOrdered By: Davis waterman on 10-08-2022 pH (U) 7.0 [pH] 5.0 - 8.0 [facility] Urine sediment bacteria coun t by microscopy (number/high power field)Ordered By: Davis Armstrong on 10-08-2022 Bacteria LM.HPF (Urine sed) [#/Area] 0 /[HPF] None Seen [facility] Urine specific gravity measu rementOrdered By: Davis Armstrong on 10-08-2022 Specific gravity (U) [Rel density] 1.010 1.002-1.030 [facility] Urobilinogen Auto test strip Ql (U)Ordered By: Davis Armstrong on 10-08-2022 Urobilinogen Ql (U) Normal mg/dl Normal [facility] Whole blood hemoglobin A1c/t otal hemoglobin ratio (mass fraction)Ordered By: Davis Armstrong on 10-08-2022 HbA1c (Bld) [Mass fraction] 6.1 % 3.8-5.6 [facility] Comment on above: Normal < 5.7 % Predi abetic 5.7 - 6.4 % Diabetic >or= 6.5 % Please note range changes. Basophil percentageOrdered B y: Dr. Mayes on 03-28-2022 Chloride [Moles/Vol] 107 mmol/L 98-107 [facility] Glucose [Mass/Vol] 92 mg/dL 74-106 [facility] Potassium [Moles/Vol] 3.7 mmol/L 3.5-5.1 [facility] Sodium [Moles/Vol] 140 mmol/L 136-145 [facility] WBC (Bld) [#/Vol] 5.3 10*3/uL 4.4-11.0 [facility] Blood erythrocytes count (nu mber/volume)Ordered By: Dr. Mayes on 03-28-2022 RBC (Bld) [#/Vol] 4.32 10*6/uL 4.6-6.2 [facility] Blood hemoglobin measurement (mass/volume)Ordered By: Dr. Mayes on 03-28-2022 Hemoglobin (Bld) [Mass/Vol] 13.2 g/dL 13.0-16.5 [facility] Blood platelet mean volumeOr dered By: Dr. Mayes on 03-28-2022 Platelet mean volume (Bld) [Entitic vol] 10.8 fL 6.2-12.0 [facility] Determination of erythrocyte mean corpuscular volume (MCV)Ordered By: Dr. Mayes on 03-28-2022 MCV (RBC) [Entitic vol] 92.4 fL 80-[address] [facility] Hematocrit Auto (Bld) [Volum e fraction]Ordered By: Dr. Mayes on 03-28-2022 Hematocrit (Bld) [Volume fraction] 39.9 % 40-54 [facility] Laboratory - Chemistry and C hemistry - challengeOrdered By: Dr. Mayes on 03-28-2022 CO2 [Moles/Vol] 26.0 mmol/L 21.0-32.0 [facility] Urea nitrogen/Creatinine [Mass ratio] 25.2 mg/mg 10-20 [facility] Laboratory - Hematology and Cell countsOrdered By: Dr. Mayes on 03-28-2022 Erythrocyte distribution width (RBC) [Entitic vol] 43.5 fL 35.1-43.9 [facility] Erythrocyte distribution width (RBC) [Ratio] 13.0 % 11.6-14.6 [facility] MCH (RBC) [Entitic mass] 30.6 pg 27.0-32.0 [facility] MCHC Auto (RBC) [Mass/Vol]Or dered By: Dr. Mayes on 03-28-2022 MCHC (RBC) [Mass/Vol] 33.1 g/dL 32-36 [facility] No Panel InformationOrdered By: Dr. Mayes on 03-28-2022 Estimated GFR (MDRD) Amer 140 mL/min >60 [facility] Comment on above: GFR Calc Estimated GFR (MDRD) Non-Af Amer 116 mL/min >60 [facility] Comment on above: Non- GFR Calc Platelets bldOrdered By: Dr. Mayes on 03-28-2022 Platelets (Bld) [#/Vol] 233 10*3/uL 150-450 [facility] Serum or plasma calcium ash urement (mass/volume)Ordered By: Dr. Mayes on 03-28-2022 Calcium [Mass/Vol] 8.8 mg/dL 8.5-10.1 [facility] Serum or plasma creatinine m easurement (mass/volume)Ordered By: Dr. Mayes on 03-28-2022 Creatinine [Mass/Vol] 0.71 mg/dL 0.70-1.30 [facility] Comment on above: The validity of the calculated GFR & GFRAA in patients over 70 years has not been determined. Clinical correlation is essential. Serum or plasma urea nitroge n measurement (mass/volume)Ordered By: Dr. Mayes on 03-28-2022 Urea nitrogen [Mass/Vol] 18 mg/dL 7-18 [facility] Thin prep Papanicolaou smear with manual screeningOrdered By: Dr. Mayes on 03-28-2022 Thin prep Papanicolaou smear with manual screening 7 5-15 [facility] Absolute lymphocyte countOrd ered By: Dr. Hatch on 01-16-2022 Lymphocytes Auto (Unsp spec) [#/Vol] 0.63 10*3/uL 0.83-4.51 [facility] Basophil percentageOrdered B y: Dr. Hatch on 01-16-2022 Basophil percentage 10-25 SEEN /hpf 0-5 [facility] Basophils/100 WBC (Bld) 0.6 % 0-[address] [facility] Chloride [Moles/Vol] 106 mmol/L 98-107 [facility] Eosinophils/100 WBC (Bld) 0.6 % 0-5 [facility] Glucose [Mass/Vol] 153 mg/dL 74-106 [facility] Comment on above: Fasting Glucose resu lt greater than or equal to 126 mg/dL suggests DIABETES MELLITUS per A.D.A. criteria. Neutrophils (Bld) [#/Vol] 6.6 10*3/uL 2.0-7.7 [facility] Neutrophils/100 WBC (Bld) 83.2 % 47-70 [facility] Potassium [Moles/Vol] 3.3 mmol/L 3.5-5.1 [facility] Sodium [Moles/Vol] 137 mmol/L 136-145 [facility] WBC (Bld) [#/Vol] 7.9 10*3/uL 4.4-11.0 [facility] Bilirubin Test strip Ql (U)O rdered By: Dr. Hatch on 01-16-2022 Bilirubin Ql (U) Negative Negative [facility] Blood erythrocytes count (nu mber/volume)Ordered By: Dr. Hatch on 01-16-2022 RBC (Bld) [#/Vol] 4.32 10*6/uL 4.6-6.2 [facility] Blood hemoglobin measurement (mass/volume)Ordered By: Dr. Hatch on 01-16-2022 Hemoglobin (Bld) [Mass/Vol] 13.4 g/dL 13.0-16.5 [facility] Blood lymphocytes/100 leukoc ytesOrdered By: Dr. Hatch on 01-16-2022 Lymphocytes/100 WBC (Bld) 8.0 % 19-41 [facility] Blood monocytes/100 leukocyt esOrdered By: Dr. Hatch on 01-16-2022 Monocytes/100 WBC (Bld) 7.2 % 0-[address] [facility] Blood platelet mean volumeOr dered By: Dr. Hatch on 01-16-2022 Platelet mean volume (Bld) [Entitic vol] 10.3 fL 6.2-12.0 [facility] Determination of erythrocyte mean corpuscular volume (MCV)Ordered By: Dr. Hatch on 01-16-2022 MCV (RBC) [Entitic vol] 91.4 fL 80-[address] [facility] Glucose Glucometer (BldC) [M ass/Vol]Ordered By: Dr. Mayes on 01-16-2022 Glucose [Mass/Vol] 111 mg/dL 74-106 [facility] Comment on above: MANAGEMENT OF PATIEN T CARE PER NURSING PROTOCOL Hematocrit Auto (Bld) [Volum e fraction]Ordered By: Dr. Hatch on 01-16-2022 Hematocrit (Bld) [Volume fraction] 39.5 % 40-54 [facility] Ketones Test strip Ql (U)Ord ered By: Dr. Hatch on 01-16-2022 Ketones Ql (U) Negative Negative [facility] Laboratory - Chemistry and C hemistry - challengeOrdered By: Dr. Hatch on 01-16-2022 CO2 [Moles/Vol] 25.0 mmol/L 21.0-32.0 [facility] Urea nitrogen/Creatinine [Mass ratio] 23.4 mg/mg 10-20 [facility] Laboratory - Hematology and Cell countsOrdered By: Dr. Hatch on 01-16-2022 Erythrocyte distribution width (RBC) [Entitic vol] 42.2 fL 35.1-43.9 [facility] Erythrocyte distribution width (RBC) [Ratio] 12.7 % 11.6-14.6 [facility] Immature granulocytes/100 WBC (Bld) 0.400 % 0.0-0.9 [facility] Comment on above: IG% - Immature Granu locytes (promyelocytes, myelocytes and metamyelocytes) > 1% indicates that a LEFT SHIFT is Present. MCH (RBC) [Entitic mass] 31.0 pg 27.0-32.0 [facility] Nucleated RBC/100 WBC (Bld) [Ratio] 0 % 0-5 [facility] MCHC Auto (RBC) [Mass/Vol]Or dered By: Dr. Hatch on 01-16-2022 MCHC (RBC) [Mass/Vol] 33.9 g/dL 32-36 [facility] Mucus LM Ql (Urine sed)Order ed By: Dr. Hatch on 01-16-2022 Mucus Ql (Urine sed) 0 SEEN /hpf [facility] Nitrite Test strip Ql (U)Ord ered By: Dr. Hatch on 01-16-2022 Nitrite Ql (U) Negative Negative [facility] No Panel InformationOrdered By: Dr. Hatch on 01-16-2022 Estimated Creatinine Clearance Calc 70.38 ml/min [facility] Estimated GFR (MDRD) Amer 107 mL/min >60 [facility] Comment on above: GFR Calc Estimated GFR (MDRD) Non-Af Amer 89 mL/min >60 [facility] Comment on above: Non- GFR Calc Platelets bldOrdered By: Dr. Hatch on 01-16-2022 Platelets (Bld) [#/Vol] 236 10*3/uL 150-450 [facility] Protein Test strip Ql (U)Ord ered By: Dr. Hatch on 01-16-2022 Protein Ql (U) 500 mg/dl Negative [facility] Serum or plasma calcium ash urement (mass/volume)Ordered By: Dr. Hatch on 01-16-2022 Calcium [Mass/Vol] 8.5 mg/dL 8.5-10.1 [facility] Serum or plasma creatinine m easurement (mass/volume)Ordered By: Dr. Hatch on 01-16-2022 Creatinine [Mass/Vol] 0.90 mg/dL 0.70-1.30 [facility] Comment on above: The validity of the calculated GFR & GFRAA in patients over 70 years has not been determined. Clinical correlation is essential. Serum or plasma urea nitroge n measurement (mass/volume)Ordered By: Dr. Hatch on 01-16-2022 Urea nitrogen [Mass/Vol] 21 mg/dL 7-18 [facility] Squamous epithelial cells de tection in urine sediment by light microscopyOrdered By: Dr. Hatch on 01-16-2022 Epithelial cells.squamous LM Ql (Urine sed) 0 SEEN /hpf 0-5 [facility] Thin prep Papanicolaou smear with manual screeningOrdered By: Dr. Hatch on 01-16-2022 Thin prep Papanicolaou smear with manual screening 6 5-15 [facility] Urine blood detectionOrdered By: Dr. Hatch on 01-16-2022 RBC Ql (U) 250 /ul Negative [facility] RBC Ql (U) > 100 SEEN /hpf 0-5 [facility] Urine clarityOrdered By: Dr. Hatch on 01-16-2022 Clarity (U) Turbid Clear [facility] Urine color determinationOrd ered By: Dr. Hatch on 01-16-2022 Color (U) Red Yellow [facility] Urine glucose detectionOrder ed By: Dr. Hatch on 01-16-2022 Glucose Ql (U) 50 mg/dl Normal [facility] Urine leukocyte esterase det ection by dipstickOrdered By: Dr. Hatch on 01-16-2022 Leukocyte esterase Test strip Ql (U) 25 /ul Negative [facility] Urine pHOrdered By: Dr. Lawson wu on 01-16-2022 pH (U) 7.0 [pH] 5.0 - 8.0 [facility] Urine sediment bacteria coun t by microscopy (number/high power field)Ordered By: Dr. Hatch on 01-16-2022 Bacteria LM.HPF (Urine sed) [#/Area] 0 /[HPF] None Seen [facility] Urine specific gravity measu rementOrdered By: Dr. Hatch on 01-16-2022 Specific gravity (U) [Rel density] 1.010 1.002-1.030 [facility] Urobilinogen Auto test strip Ql (U)Ordered By: Dr. Hatch on 01-16-2022 Urobilinogen Ql (U) Normal mg/dl Normal [facility] Glucose Glucometer (BldC) [M ass/Vol]Ordered By: Dr. Mayes on 12-19-2021 Glucose [Mass/Vol] 99 mg/dL 74-106 [facility] Comment on above: MANAGEMENT OF PATIEN T CARE PER NURSING PROTOCOL Absolute lymphocyte countOrd ered By: Dr. Armstrong on 12-18-2021 Lymphocytes Auto (Unsp spec) [#/Vol] 0.70 10*3/uL 0.83-4.51 [facility] Basophil percentageOrdered B y: Dr. Armstrong on 12-18-2021 Basophils/100 WBC (Bld) 0.6 % 0-[address] [facility] Bilirubin [Mass/Vol] 1.00 mg/dL 0.20-1.00 [facility] Comment on above: For patients on eltr ombopag therapy, use of Dimension [place] TBIL is not recommended. Chloride [Moles/Vol] 107 mmol/L 98-107 [facility] Cholesterol [Mass/Vol] 120 mg/dL <200 [facility] Comment on above: <200 mg/dL Desirable 200-240 mg/dL Borderline >240 mg/dL High Risk Eosinophils/100 WBC (Bld) 0.7 % 0-5 [facility] Glucose [Mass/Vol] 95 mg/dL 74-106 [facility] Neutrophils (Bld) [#/Vol] 9.0 10*3/uL 2.0-7.7 [facility] Neutrophils/100 WBC (Bld) 84.2 % 47-70 [facility] Potassium [Moles/Vol] 3.7 mmol/L 3.5-5.1 [facility] Protein [Mass/Vol] 7.0 g/dL 6.4-8.2 [facility] Sodium [Moles/Vol] 139 mmol/L 136-145 [facility] Triglyceride [Mass/Vol] 53 mg/dL <[address] [facility] Comment on above: The drugs N-Acetylcy steine and Metamizole may falsely depress this assay.Serum Triglycerides Reference Interval Normal <150 mg/dL Borderline high 150 - 199 mg/dL High 200 - 499 mg/dL Very High > or = 500 mg/dL WBC (Bld) [#/Vol] 10.7 10*3/uL 4.4-11.0 [facility] Blood erythrocytes count (nu mber/volume)Ordered By: Dr. Armstrong on 12-18-2021 RBC (Bld) [#/Vol] 4.39 10*6/uL 4.6-6.2 [facility] Blood hemoglobin measurement (mass/volume)Ordered By: Dr. Armstrong on 12-18-2021 Hemoglobin (Bld) [Mass/Vol] 13.6 g/dL 13.0-16.5 [facility] Blood lymphocytes/100 leukoc ytesOrdered By: Dr. Armstrong on 12-18-2021 Lymphocytes/100 WBC (Bld) 6.6 % 19-41 [facility] Blood monocytes/100 leukocyt esOrdered By: Dr. Armstrong on 12-18-2021 Monocytes/100 WBC (Bld) 7.4 % 0-[address] [facility] Blood platelet mean volumeOr dered By: Dr. Armstrong on 12-18-2021 Platelet mean volume (Bld) [Entitic vol] 11.0 fL 6.2-12.0 [facility] Determination of erythrocyte mean corpuscular volume (MCV)Ordered By: Dr. Armstrong on 12-18-2021 MCV (RBC) [Entitic vol] 92.7 fL 80-[address] [facility] Hematocrit Auto (Bld) [Volum e fraction]Ordered By: Dr. Armstrong on 12-18-2021 Hematocrit (Bld) [Volume fraction] 40.7 % 40-54 [facility] Iron measurement (mass/mass) Ordered By: Dr. Armstrong on 12-18-2021 Iron (Unsp spec) [Mass/Mass] 32 ug/dL 65-175 [facility] Laboratory - Chemistry and C hemistry - challengeOrdered By: Dr. Armstrong on 12-18-2021 ALP [Catalytic activity/Vol] 79 U/L 45-117 [facility] ALT [Catalytic activity/Vol] 22 U/L 16-61 [facility] CO2 [Moles/Vol] 26.0 mmol/L 21.0-32.0 [facility] Cobalamin (Vitamin B12) [Mass/Vol] 534 pg/mL 211-911 [facility] Globulin (S) [Mass/Vol] 3.5 g/dL 2.2-4.[address] [facility] Transferrin [Mass/Vol] 211 mg/dL 177-329 [facility] Comment on above: Performed at: [address] [id number] Director: Scooby Downs PhD, Phone: [phone] Urea nitrogen/Creatinine [Mass ratio] 23.4 mg/mg 10-20 [facility] Laboratory - Hematology and Cell countsOrdered By: Dr. Armstrong on 12-18-2021 Erythrocyte distribution width (RBC) [Entitic vol] 43.7 fL 35.1-43.9 [facility] Erythrocyte distribution width (RBC) [Ratio] 12.6 % 11.6-14.6 [facility] Immature granulocytes/100 WBC (Bld) 0.500 % 0.0-0.9 [facility] Comment on above: IG% - Immature Granu locytes (promyelocytes, myelocytes and metamyelocytes) > 1% indicates that a LEFT SHIFT is Present. MCH (RBC) [Entitic mass] 31.0 pg 27.0-32.0 [facility] Nucleated RBC/100 WBC (Bld) [Ratio] 0 % 0-5 [facility] MCHC Auto (RBC) [Mass/Vol]Or dered By: Dr. Armstrong on 12-18-2021 MCHC (RBC) [Mass/Vol] 33.4 g/dL 32-36 [facility] No Panel InformationOrdered By: Dr. Armstrong on 12-18-2021 Estimated GFR (MDRD) Amer 137 mL/min >60 [facility] Comment on above: GFR Calc Estimated GFR (MDRD) Non-Af Amer 114 mL/min >60 [facility] Comment on above: Non- GFR Calc Prostate Specific Antigen Screen 0.82 ng/mL 0.00-4.00 [facility] Comment on above: This test was perfor med using the TPSA assay method [facility]. Values obtained with differentassay methods cannot be used interchangably.When changing PSA assays in the course of monitoring apatient, additional sequential testing should be carriedout to confirm baseline values. Total Iron Binding Capacity 269 ug/dL 250-450 [facility] Platelets bldOrdered By: Dr. Armstrong on 12-18-2021 Platelets (Bld) [#/Vol] 262 10*3/uL 150-450 [facility] Serum or plasma albumin ash urement (mass/volume)Ordered By: Dr. Armstrong on 12-18-2021 Albumin [Mass/Vol] 3.5 g/dL 3.2-5.0 [facility] Serum or plasma albumin/glob ulin mass ratioOrdered By: Dr. Armstrong on 12-18-2021 Albumin/Globulin [Mass ratio] 1.0 {ratio} 0.9-2.4 [facility] Serum or plasma calcium ash urement (mass/volume)Ordered By: Dr. Armstrong on 12-18-2021 Calcium [Mass/Vol] 9.0 mg/dL 8.5-10.1 [facility] Serum or plasma cholesterol in HDL measurement (mass/volume)Ordered By: Dr. Armstrong on 12-18-2021 Cholesterol in HDL [Mass/Vol] 61 mg/dL >40 [facility] Comment on above: The drugs N-Acetylcy steine and Metamizole may falsely depress this assay. Reference Range HDL <40 mg/dL Low HDL Cholesterol HDL >or= 60 mg/dL High HDL Cholesterol Serum or plasma cholesterol in VLDL measurement (mass/volume)Ordered By: Dr. Armstrong on 12-18-2021 Cholesterol in VLDL [Mass/Vol] 11 mg/dL 5-40 [facility] Serum or plasma creatinine m easurement (mass/volume)Ordered By: Dr. Armstrong on 12-18-2021 Creatinine [Mass/Vol] 0.72 mg/dL 0.70-1.30 [facility] Comment on above: The validity of the calculated GFR & GFRAA in patients over 70 years has not been determined. Clinical correlation is essential. Serum or plasma ferritin elham surement (mass/volume)Ordered By: Dr. Armstrong on 12-18-2021 Ferritin [Mass/Vol] 339 ng/mL 26-388 [facility] Serum or plasma low density lipoprotein (LDL) cholesterol measurement (mass/volume)Ordered By: Dr. Armstrong on 12-18-2021 Cholesterol in LDL [Mass/Vol] 48 mg/dL 0-130 [facility] Serum or plasma urea nitroge n measurement (mass/volume)Ordered By: Dr. Armstrong on 12-18-2021 Urea nitrogen [Mass/Vol] 17 mg/dL 7-18 [facility] Thin prep Papanicolaou smear with manual screeningOrdered By: Dr. Armstrong on 12-18-2021 Thin prep Papanicolaou smear with manual screening 20 U/L 15-37 [facility] Thin prep Papanicolaou smear with manual screening 6 5-15 [facility] Whole blood hemoglobin A1c/t otal hemoglobin ratio (mass fraction)Ordered By: Dr. Armstrong on 12-18-2021 HbA1c (Bld) [Mass fraction] 6.1 % 3.8-5.6 [facility] Comment on above: Normal < 5.7 % Predi abetic 5.7 - 6.4 % Diabetic >or= 6.5 % Please note range changes. Absolute lymphocyte counton 12-02-2021 Lymphocytes Auto (Unsp spec) [#/Vol] 0.63 10*3/uL 0.83-4.51 [facility] Work Phone: Basophil percentageon 2021 Basophil percentage 0-5 SEEN /hpf 0-5 [facility] Work Phone: Basophils/100 WBC (Bld) 0.6 % 0-[address] [facility] Work Phone: Bilirubin [Mass/Vol] 1.00 mg/dL 0.20-1.00 [facility] Work Phone: Comment on above: For patients on eltr ombopag therapy, use of Dimension [place] TBIL is not recommended. Chloride [Moles/Vol] 109 mmol/L 98-107 [facility] Work Phone: Eosinophils/100 WBC (Bld) 0.4 % 0-5 [facility] Work Phone: Glucose [Mass/Vol] 111 mg/dL 74-106 [facility] Work Phone: Comment on above: Fasting Glucose resu lt from 100 to 125 mg/dL suggests IMPAIRED HOMEOSTASIS per A.D.A. criteria. Neutrophils (Bld) [#/Vol] 9.1 10*3/uL 2.0-7.7 [facility] Work Phone: Neutrophils/100 WBC (Bld) 83.8 % 47-70 [facility] Work Phone: Potassium [Moles/Vol] 3.7 mmol/L 3.5-5.1 [facility] Work Phone: Protein [Mass/Vol] 7.2 g/dL 6.4-8.2 [facility] Work Phone: Sodium [Moles/Vol] 144 mmol/L 136-145 [facility] Work Phone: WBC (Bld) [#/Vol] 10.9 10*3/uL 4.4-11.0 [facility] Work Phone: Bilirubin Test strip Ql (U)o n 12-02-2021 Bilirubin Ql (U) Negative Negative [facility] Work Phone: Blood erythrocytes count (nu mber/volume)on 12-02-2021 RBC (Bld) [#/Vol] 4.65 10*6/uL 4.6-6.2 [facility] Work Phone: Blood hemoglobin measurement (mass/volume)on 12-02-2021 Hemoglobin (Bld) [Mass/Vol] 14.4 g/dL 13.0-16.5 [facility] Work Phone: Blood lymphocytes/100 leukoc yteson 12-02-2021 Lymphocytes/100 WBC (Bld) 5.8 % 19-41 [facility] Work Phone: Blood monocytes/100 leukocyt eson 12-02-2021 Monocytes/100 WBC (Bld) 9.1 % 0-[address] [facility] Work Phone: Blood platelet mean volumeon 12-02-2021 Platelet mean volume (Bld) [Entitic vol] 10.4 fL 6.2-12.0 [facility] Work Phone: Determination of erythrocyte mean corpuscular volume (MCV)on 12-02-2021 MCV (RBC) [Entitic vol] 94.2 fL 80-[address] [facility] Work Phone: Hematocrit Auto (Bld) [Volum e fraction]on 12-02-2021 Hematocrit (Bld) [Volume fraction] 43.8 % 40-54 [facility] Work Phone: [phone] Ketones Test strip Ql (U)on 12-02-2021 Ketones Ql (U) Negative Negative [facility] Work Phone: [phone] Laboratory - Chemistry and C hemistry - challengeon 12-02-2021 ALP [Catalytic activity/Vol] 71 U/L 45-117 [facility] Work Phone: [phone] ALT [Catalytic activity/Vol] 21 U/L 16-61 [facility] Work Phone: [phone] CO2 [Moles/Vol] 27.0 mmol/L 21.0-32.0 [facility] Work Phone: [phone] Globulin (S) [Mass/Vol] 3.4 g/dL 2.2-4.[address] [facility] Work Phone: [phone] Lipase [Catalytic activity/Vol] 112 U/L 73-393 [facility] Work Phone: [phone] Urea nitrogen/Creatinine [Mass ratio] 22.2 mg/mg 10-20 [facility] Work Phone: [phone] Laboratory - Hematology and Cell countson 12-02-2021 Erythrocyte distribution width (RBC) [Entitic vol] 44.7 fL 35.1-43.9 [facility] Work Phone: [phone] Erythrocyte distribution width (RBC) [Ratio] 13.1 % 11.6-14.6 [facility] Work Phone: [phone] Immature granulocytes/100 WBC (Bld) 0.300 % 0.0-0.9 [facility] Work Phone: [phone] Comment on above: IG% - Immature Granu locytes (promyelocytes, myelocytes and metamyelocytes) > 1% indicates that a LEFT SHIFT is Present. MCH (RBC) [Entitic mass] 31.0 pg 27.0-32.0 [facility] Work Phone: [phone] Nucleated RBC/100 WBC (Bld) [Ratio] 0 % 0-5 [facility] Work Phone: [phone] MCHC Auto (RBC) [Mass/Vol]on 12-02-2021 MCHC (RBC) [Mass/Vol] 32.9 g/dL 32-36 [facility] Work Phone: [phone] Mucus LM Ql (Urine sed)on Mucus Ql (Urine sed) 0 SEEN /hpf [facility] Work Phone: Nitrite Test strip Ql (U)on 12-02-2021 Nitrite Ql (U) Negative Negative [facility] Work Phone: [phone] No Panel Informationon 12-02 Estimated Creatinine Clearance Calc 51.00 ml/min [facility] Work Phone: [phone] Estimated GFR (MDRD) Amer 73 mL/min >60 [facility] Work Phone: [phone] Comment on above: GFR Calc Estimated GFR (MDRD) Non-Af Amer 60 mL/min >60 [facility] Work Phone: Comment on above: Non- GFR Calc Platelets bldon 12-02-2021 Platelets (Bld) [#/Vol] 216 10*3/uL 150-450 [facility] Work Phone: [phone] Protein Test strip Ql (U)on 12-02-2021 Protein Ql (U) 15 mg/dl Negative [facility] Work Phone: [phone] Serum or plasma albumin ash urement (mass/volume)on 12-02-2021 Albumin [Mass/Vol] 3.8 g/dL 3.2-5.0 [facility] Work Phone: [phone] Serum or plasma albumin/glob ulin mass ratioon 12-02-2021 Albumin/Globulin [Mass ratio] 1.1 {ratio} 0.9-2.4 [facility] Work Phone: [phone] Serum or plasma calcium ash urement (mass/volume)on 12-02-2021 Calcium [Mass/Vol] 9.2 mg/dL 8.5-10.1 [facility] Work Phone: [phone] Serum or plasma creatinine m easurement (mass/volume)on 12-02-2021 Creatinine [Mass/Vol] 1.26 mg/dL 0.70-1.30 [facility] Work Phone: Comment on above: The validity of the calculated GFR & GFRAA in patients over 70 years has not been determined. Clinical correlation is essential. Serum or plasma urea nitroge n measurement (mass/volume)on 12-02-2021 Urea nitrogen [Mass/Vol] 28 mg/dL -18 [facility] Work Phone: [phone] Squamous epithelial cells de tection in urine sediment by light microscopyon 12-02-2021 Epithelial cells.squamous LM Ql (Urine sed) 0 SEEN /hpf 0-5 [facility] Work Phone: Thin prep Papanicolaou smear with manual screeningon 12-02-2021 Thin prep Papanicolaou smear with manual screening 25 U/L 15-37 [facility] Work Phone: Thin prep Papanicolaou smear with manual screening 8 5-15 [facility] Work Phone: Urine blood detectionon 11-15 RBC Ql (U) 150 /ul Negative [facility] Work Phone: [phone] RBC Ql (U) 5-10 SEEN /hpf 0-5 [facility] Work Phone: [phone] Urine clarityon 12-02-2021 Clarity (U) Clear Clear [facility] Work Phone: Urine color determinationon 12-02-2021 Color (U) Yellow Yellow [facility] Work Phone: Urine glucose detectionon Glucose Ql (U) Normal mg/dl Normal [facility] Work Phone: [phone] Urine leukocyte esterase det ection by dipstickon 12-02-2021 Leukocyte esterase Test strip Ql (U) Negative Negative [facility] Work Phone: [phone] Urine pHon 12-02-2021 pH (U) 6.0 [pH] 5.0 - 8.0 [facility] Work Phone: [phone] Urine sediment bacteria coun t by microscopy (number/high power field)on 12-02-2021 Bacteria LM.HPF (Urine sed) [#/Area] RARE /hpf None Seen [facility] Work Phone: Urine specific gravity measu rementon 12-02-2021 Specific gravity (U) [Rel density] 1.015 1.002-1.030 [facility] Work Phone: Urobilinogen Auto test strip Ql (U)on 12-02-2021 Urobilinogen Ql (U) Normal mg/dl Normal [facility] Work Phone: Absolute lymphocyte counton 10-02-2021 Lymphocytes Auto (Unsp spec) [#/Vol] 0.89 10*3/uL 0.83-4.51 [facility] Work Phone: Basophil percentageon 2021 Basophils/100 WBC (Bld) 1.2 % 0-[address] [facility] Work Phone: Bilirubin [Mass/Vol] 0.80 mg/dL 0.20-1.00 [facility] Work Phone: Comment on above: For patients on eltr ombopag therapy, use of Dimension [place] TBIL is not recommended. Chloride [Moles/Vol] 107 mmol/L 98-107 [facility] Work Phone: Cholesterol [Mass/Vol] 132 mg/dL <200 [facility] Work Phone: Comment on above: <200 mg/dL Desirable 200-240 mg/dL Borderline >240 mg/dL High Risk Eosinophils/100 WBC (Bld) 2.7 % 0-5 [facility] Work Phone: Glucose [Mass/Vol] 95 mg/dL 74-106 [facility] Work Phone: Neutrophils (Bld) [#/Vol] 3.3 10*3/uL 2.0-7.7 [facility] Work Phone: Neutrophils/100 WBC (Bld) 68.0 % 47-70 [facility] Work Phone: Potassium [Moles/Vol] 3.7 mmol/L 3.5-5.1 [facility] Phone: [phone] Protein [Mass/Vol] 6.6 g/dL 6.4-8.2 [facility] Work Phone: [phone] Sodium [Moles/Vol] 140 mmol/L 136-145 [facility] Work Phone: [phone] Triglyceride [Mass/Vol] 54 mg/dL <[address] [facility] Work Phone: [phone] Comment on above: The drugs N-Acetylcy steine and Metamizole may falsely depress this assay.Serum Triglycerides Reference Interval Normal <150 mg/dL Borderline high 150 - 199 mg/dL High 200 - 499 mg/dL Very High > or = 500 mg/dL WBC (Bld) [#/Vol] 4.8 10*3/uL 4.4-11.0 [facility] Work Phone: Blood erythrocytes count (nu mber/volume)on 10-02-2021 RBC (Bld) [#/Vol] 4.07 10*6/uL 4.6-6.2 [facility] Work Phone: [phone] Blood hemoglobin measurement (mass/volume)on 10-02-2021 Hemoglobin (Bld) [Mass/Vol] 12.9 g/dL 13.0-16.5 [facility] Work Phone: Blood lymphocytes/100 leukoc yteson 10-02-2021 Lymphocytes/100 WBC (Bld) 18.5 % 19-41 [facility] Work Phone: [phone] Blood monocytes/100 leukocyt eson 10-02-2021 Monocytes/100 WBC (Bld) 9.4 % 0-[address] [facility] Work Phone: Blood platelet mean volumeon 10-02-2021 Platelet mean volume (Bld) [Entitic vol] 10.8 fL 6.2-12.0 [facility] Work Phone: [phone] Determination of erythrocyte mean corpuscular volume (MCV)on 10-02-2021 MCV (RBC) [Entitic vol] 95.3 fL 80-[address] [facility] Work Phone: [phone] Hematocrit Auto (Bld) [Volum e fraction]on 10-02-2021 Hematocrit (Bld) [Volume fraction] 38.8 % 40-54 [facility] Work Phone: [phone] Iron measurement (mass/mass) on 10-02-2021 Iron (Unsp spec) [Mass/Mass] 104 ug/dL 65-175 [facility] Work Phone: [phone] Laboratory - Chemistry and C hemistry - challengeon 10-02-2021 Cobalamin (Vitamin B12) [Mass/Vol] 449 pg/mL 211-911 [facility] Work Phone: ALP [Catalytic activity/Vol] 68 U/L 45-117 [facility] Work Phone: [phone] ALT [Catalytic activity/Vol] 21 U/L 16-61 [facility] Work Phone: [phone] CO2 [Moles/Vol] 27.0 mmol/L 21.0-32.0 [facility] Work Phone: [phone] Globulin (S) [Mass/Vol] 3.1 g/dL 2.2-4.[address] [facility] Work Phone: [phone] Transferrin [Mass/Vol] 229 mg/dL 177-329 [facility] Work Phone: [phone] Comment on above: Performed at: [address] [id number] Director: Scooby Downs PhD, Phone: [phone] Urea nitrogen/Creatinine [Mass ratio] 31.4 mg/mg 10-20 [facility] Work Phone: [phone] Laboratory - Hematology and Cell countson 10-02-2021 Erythrocyte distribution width (RBC) [Entitic vol] 43.9 fL 35.1-43.9 [facility] Work Phone: [phone] Erythrocyte distribution width (RBC) [Ratio] 12.5 % 11.6-14.6 [facility] Work Phone: [phone] Immature granulocytes/100 WBC (Bld) 0.200 % 0.0-0.9 [facility] Work Phone: Comment on above: IG% - Immature Granu locytes (promyelocytes, myelocytes and metamyelocytes) > 1% indicates that a LEFT SHIFT is Present. MCH (RBC) [Entitic mass] 31.7 pg 27.0-32.0 [facility] Work Phone: Nucleated RBC/100 WBC (Bld) [Ratio] 0 % 0-5 [facility] Work Phone: [phone] MCHC Auto (RBC) [Mass/Vol]on 10-02-2021 MCHC (RBC) [Mass/Vol] 33.2 g/dL 32-36 [facility] Work Phone: No Panel Informationon 10-02 Estimated GFR (MDRD) Amer 143 mL/min >60 [facility] Work Phone: Comment on above: GFR Calc Estimated GFR (MDRD) Non-Af Amer 118 mL/min >60 [facility] Work Phone: Comment on above: Non- GFR Calc Total Iron Binding Capacity 285 ug/dL 250-450 [facility] Work Phone: Platelets bldon 10-02-2021 Platelets (Bld) [#/Vol] 231 10*3/uL 150-450 [facility] Work Phone: [phone] Serum or plasma albumin ash urement (mass/volume)on 10-02-2021 Albumin [Mass/Vol] 3.5 g/dL 3.2-5.0 [facility] Work Phone: Serum or plasma albumin/glob ulin mass ratioon 10-02-2021 Albumin/Globulin [Mass ratio] 1.1 {ratio} 0.9-2.4 [facility] Work Phone: [phone] Serum or plasma calcium ash urement (mass/volume)on 10-02-2021 Calcium [Mass/Vol] 8.7 mg/dL 8.5-10.1 [facility] Work Phone: [phone] Serum or plasma cholesterol in HDL measurement (mass/volume)on 10-02-2021 Cholesterol in HDL [Mass/Vol] 57 mg/dL >40 [facility] Work Phone: Comment on above: The drugs N-Acetylcy steine and Metamizole may falsely depress this assay. Reference Range HDL <40 mg/dL Low HDL Cholesterol HDL >or= 60 mg/dL High HDL Cholesterol Serum or plasma cholesterol in VLDL measurement (mass/volume)on 10-02-2021 Cholesterol in VLDL [Mass/Vol] 11 mg/dL 5-40 [facility] Work Phone: [phone] Serum or plasma creatinine m easurement (mass/volume)on 10-02-2021 Creatinine [Mass/Vol] 0.70 mg/dL 0.70-1.30 [facility] Work Phone: Comment on above: The validity of the calculated GFR & GFRAA in patients over 70 years has not been determined. Clinical correlation is essential. Serum or plasma ferritin elham surement (mass/volume)on 10-02-2021 Ferritin [Mass/Vol] 290 ng/mL 26-388 [facility] Work Phone: Serum or plasma iron saturat ion measurement (mass fraction)on 10-02-2021 Iron saturation [Mass fraction] 36.5 % 15.0-55.0 [facility] Work Phone: [phone] Serum or plasma low density lipoprotein (LDL) cholesterol measurement (mass/volume)on 10-02-2021 Cholesterol in LDL [Mass/Vol] 64 mg/dL 0-130 [facility] Work Phone: [phone] Serum or plasma urea nitroge n measurement (mass/volume)on 10-02-2021 Urea nitrogen [Mass/Vol] 22 mg/dL 7-18 [facility] Work Phone: [phone] Thin prep Papanicolaou smear with manual screeningon 10-02-2021 Thin prep Papanicolaou smear with manual screening 29 U/L 15-37 [facility] Work Phone: [phone] Thin prep Papanicolaou smear with manual screening 6 5-15 [facility] Work Phone: Whole blood hemoglobin A1c/t otal hemoglobin ratio (mass fraction)on 10-02-2021 HbA1c (Bld) [Mass fraction] 6.0 % 3.8-5.6 [facility] Work Phone: Comment on above: Normal < 5.7 % Predi abetic 5.7 - 6.4 % Diabetic >or= 6.5 % Please note range changes. Vital Signs Date Time Vital Sign Value Performing Clinician Faci lity 07-23-2024 11:37-0400 Body temperature 98.2 [degF] Dr. Davis Armstrong MD Work Phone: [phone] [place] [address] 07-23-2024 11:37-0400 Diastolic blood pressure 78 mm[Hg] Dr. Davis Armstrong MD Work Phone: [phone] [place] [address] 07-23-2024 11:37-0400 Heart rate 80 /min Dr. Davis Armstrong MD Work Phone: [phone] [place] [address] 07-23-2024 11:37-0400 Respiratory rate 18 /min Dr. Davis Armstrong MD Work Phone: [phone] [place] [address] 07-23-2024 11:37-0400 SaO2% (BldA) [Mass fraction] 97 % Dr. Davis Armstrong MD Work Phone: [facility] 07-23-2024 11:37-0400 Systolic blood pressure 148 mm[Hg] Dr. Davis Armstrong MD Work Phone: [facility] 07-23-2024 07:05-0400 Body height 170.[address] Davis Armstrong MD Work Phone: [facility] 07-23-2024 07:05-0400 Body mass index (BMI) [Ratio] 31.6 kg/m2 Dr. Davis Armstrong MD Work Phone: [facility] 07-23-2024 07:05-0400 Body weight 91.[address] Davis Armstrong MD Work Phone: [phone] [place] [address] 12-27-2022 11:00-0400 Diastolic blood pressure 86 mm[Hg] [facility] 12-27-2022 11:00-0400 Systolic blood pressure 141 mm[Hg] [facility] 12-27-2022 09:36-0400 Heart rate 92 /min [facility] 12-27-2022 09:36-0400 Respiratory rate 26 /min [facility] 12-27-2022 09:36-0400 SaO2% (BldA) [Mass fraction] 99 % [facility] 12-27-2022 07:36-0400 Body height 170.18 cm [facility] 12-27-2022 07:36-0400 Body mass index (BMI) [Ratio] 31.3 kg/m2 [facility] 12-27-2022 07:36-0400 Body temperature 97.2 [degF] [facility] 12-27-2022 07:36-0400 Body weight 90.71 kg [facility] 01-18-2022 17:03-0400 Body height 170.18 cm [facility] 01-18-2022 17:03-0400 Body mass index (BMI) [Ratio] 30.5 kg/m2 [facility] 01-18-2022 17:03-0400 Body temperature 98.7 [degF] [facility] 01-18-2022 17:03-0400 Body weight 88.45 kg [facility] 01-18-2022 17:03-0400 Diastolic blood pressure 96 mm[Hg] [facility] 01-18-2022 17:03-0400 Heart rate 113 /min [facility] 01-18-2022 17:03-0400 Respiratory rate 18 /min [facility] 01-18-2022 17:03-0400 SaO2% (BldA) [Mass fraction] 94 % [facility] 01-18-2022 17:03-0400 Systolic blood pressure 145 mm[Hg] [facility] 01-18-2022 12:06-0400 Body temperature 98.2 [degF] [facility] 01-18-2022 12:06-0400 Diastolic blood pressure 80 mm[Hg] [facility] 01-18-2022 12:06-0400 Heart rate 77 /min [facility] 01-18-2022 12:06-0400 Respiratory rate 18 /min [facility] 01-18-2022 12:06-0400 SaO2% (BldA) [Mass fraction] 97 % [facility] 01-18-2022 12:06-0400 Systolic blood pressure 142 mm[Hg] [facility] 01-16-2022 18:35-0400 Body mass index (BMI) [Ratio] 30.4 kg/m2 [facility] 01-16-2022 18:35-0400 Body weight 88.3 kg [facility] 01-16-2022 10:27-0400 Body temperature 97 [degF] [facility] 01-16-2022 10:27-0400 Diastolic blood pressure 98 mm[Hg] [facility] 01-16-2022 10:27-0400 Heart rate 51 /min [facility] 01-16-2022 10:27-0400 Respiratory rate 18 /min [facility] 01-16-2022 10:27-0400 SaO2% (BldA) [Mass fraction] 98 % [facility] 01-16-2022 10:27-0400 Systolic blood pressure 142 mm[Hg] [facility] 01-16-2022 06:54-0400 Body height 170.18 cm [facility] Work Phone: 01-16-2022 06:54-0400 Body mass index (BMI) [Ratio] 30.6 kg/m2 [facility] 01-16-2022 06:54-0400 Body weight 88.72 kg [facility] 12-19-2021 13:58-0400 Body temperature 97.2 [degF] [facility] 12-19-2021 13:58-0400 Diastolic blood pressure 82 mm[Hg] [facility] 12-19-2021 13:58-0400 Heart rate 76 /min [facility] 12-19-2021 13:58-0400 Respiratory rate 16 /min [facility] 12-19-2021 13:58-0400 SaO2% (BldA) [Mass fraction] 97 % [facility] 12-19-2021 13:58-0400 Systolic blood pressure 148 mm[Hg] [facility] 12-19-2021 09:10-0400 Body height 170.18 cm [facility] Work Phone: 12-19-2021 09:10-0400 Body mass index (BMI) [Ratio] 29.9 kg/m2 [facility] 12-19-2021 09:10-0400 Body weight 86.63 kg [facility] 12-02-2021 23:08-0400 Diastolic blood pressure 82 mm[Hg] [facility] Work Phone: 12-02-2021 23:08-0400 Heart rate 72 /min [facility] Work Phone: 12-02-2021 23:08-0400 Respiratory rate 18 /min [facility] Work Phone: 12-02-2021 23:08-0400 SaO2% (BldA) [Mass fraction] 100 % [facility] Work Phone: 12-02-2021 23:08-0400 Systolic blood pressure 136 mm[Hg] [facility] Work Phone: 12-02-2021 18:27-0400 Body height 170.18 cm [facility] Work Phone: 12-02-2021 18:27-0400 Body mass index (BMI) [Ratio] 29.7 kg/m2 [facility] Work Phone: 12-02-2021 18:27-0400 Body temperature 97.9 [degF] [facility] Work Phone: 12-02-2021 18:27-0400 Body weight 86.18 kg [facility] Work Phone: 08-25-2021 07:28-0400 Body mass index (BMI) [Ratio] 29.7 kg/m2 [facility] Work Phone: 08-25-2021 07:28-0400 Body temperature 98.1 [degF] [facility] Work Phone: 08-25-2021 07:28-0400 Body weight 86.18 kg [facility] Work Phone: 08-25-2021 07:28-0400 Diastolic blood pressure 93 mm[Hg] [facility] Work Phone: 08-25-2021 07:28-0400 Heart rate 73 /min [facility] Work Phone: 08-25-2021 07:28-0400 Respiratory rate 14 /min [facility] Work Phone: 08-25-2021 07:28-0400 SaO2% (BldA) [Mass fraction] 99 % [facility] Work Phone: 08-25-2021 07:28-0400 Systolic blood pressure 176 mm[Hg] [facility] Work Phone: Encounters Encounter Date Encounter Type Care Provider Facility Start: 07-23-2024 End: 07-23-2024 Emergency department patient visit Dr. Davis Armstrong MD Work Phone: -Emergency Department Work Phone: Start: 05-26-2024 End: 05-26-[address] Davis Armstrong MD Work Phone: [facility] Work Phone: Start: 05-26-2024 End: 05-26-[address] Davis Armstrong MD -Laboratory, [facility] Start: 05-26-2024 End: 05-26-2024 ambulatory Davis Armstrong Facility:[facility] Start: 05-19-2024 End: 05-19-[address] Davis Armstrong MD Work Phone: [facility] Work Phone: Start: 05-19-2024 End: 05-19-[address] Davis Armstrong MD -Laboratory, [facility] Start: 05-19-2024 End: 05-19-2024 ambulatory Davis Armstrong Facility:[facility] Start: 01-14-2024 End: 01-14-2024 ambulatory Davis Armstrong Facility:[facility] Start: 09-10-2023 End: 09-10-2023 ambulatory Davis Armstrong Facility:[facility] Start: 05-08-2023 End: 05-08-2023 ambulatory [facility] Work Phone: Start: 05-08-2023 End: 05-08-2023 Patient encounter procedure [facility]-Laboratory Work Phone: Start: 01-08-2023 End: 01-08-2023 ambulatory [facility] Work Phone: Start: 01-08-2023 End: 01-08-2023 [facility] Start: 12-27-2022 End: 12-27-2022 Emergency department patient visit [facility]-Emergency Department Work Phone: Start: 10-08-2022 End: 10-08-2022 [facility] Start: 04-08-2022 End: 04-08-2022 ambulatory [facility] Work Phone: Start: 04-08-2022 End: 04-08-2022 Patient encounter procedure [facility]-Laboratory, Specimen Start: 03-28-2022 End: 03-28-2022 ambulatory [facility] Work Phone: Start: 03-28-2022 End: 03-28-2022 Patient encounter procedure [facility]-Laboratory Start: 01-18-2022 End: 01-18-2022 Emergency department patient visit [facility]-Emergency Department Start: 01-16-2022 End: 01-18-2022 Evaluation and management of inpatient [facility]-Medical Surgical 3 Start: 01-16-2022 End: 01-16-2022 Admission to same day surgery center [facility] Day Care Start: 01-16-2022 End: 01-16-2022 ambulatory [facility] Work Phone: Start: 12-19-2021 End: 12-19-2021 Admission to same day surgery center [facility] Start: 12-19-2021 End: 12-19-2021 ambulatory [facility] Work Phone: Start: 12-18-2021 End: 12-18-2021 ambulatory [facility] Work Phone: Start: 12-18-2021 End: 12-18-2021 Patient encounter procedure [facility] Start: 12-02-2021 End: 12-02-2021 [facility] Start: 10-02-2021 End: 10-02-2021 Patient encounter procedure [facility] Start: 08-25-2021 End: 08-25-2021 Emergency department patient visit [facility]-Emergency Department Procedures Date Procedure Procedure Detail Performing [...] identified in Urine by Culture Urine Culture [facility] Start: 07-23-2024 [facility] Start: 07-23-2024 End: 07-23-2024 [facility] Start: 12-27-2022 [facility] Start: 12-27-2022 [facility] Start: 01-18-2022 Referral to service [facility] Start: 01-18-2022 Patient discharge [facility] Start: 01-17-2022 Incentive spirometry [facility] Start: 01-16-2022 [facility] Start: 01-16-2022 Admission procedure [facility] Start: 01-16-2022 Following clinical pathway protocol [facility] Start: 01-16-2022 Anes transurethral resection of bladder tumor ANESTH BLADDER TUMOR SURG [facility] Start: 01-16-2022 Cystourethroscopy w/dest &/rmvl tumor large CYSTOSCOPY AND TREATMENT [facility] Start: 01-16-2022 Ambulation without limitation [facility] Start: 01-16-2022 Medication education [facility] Start: 01-16-2022 Patient discharge [facility] Start: 01-16-2022 Taking patient vital signs [facility] Start: 01-16-2022 End: 01-17-2022 [facility] Start: 12-19-2021 Anes lithotrp xtrcorp shock wave w/o water bath ANESTH KIDNEY STONE DESTRUCT [facility] Start: 12-19-2021 Cysto w/insert ureteral stent CYSTOSCOPY AND TREATMENT [facility] Start: 12-19-2021 Lithotripsy xtrcorp shock wave FRAGMENTING OF KIDNEY STONE [facility] Start: 12-19-2021 Patient discharge [facility] Start: 12-19-2021 Ambulation without limitation [facility] Start: 12-19-2021 Medication education [facility] Start: 12-19-2021 Taking patient vital signs [facility] Start: 12-19-2021 [facility] Start: 08-25-2021 Simple repair scalp/neck/ax/genit/trunk 2.5cm/< RPR S/N/AX/GEN/TRNK 2.5CM/< [facility] Work Phone: Electrocardiographic procedure [facility] Work Phone: Electrocardiographic procedure [facility] Patient Education [facility] Work Phone: Patient referral [facility] Work Phone: Troponin T.cardiac [Mass/volume] in Serum or Plasma by High sensitivity method [facility] Urine culture [facility] Immunizations Immunization Date Immunization Notes Care Provider Fa chaz 08-25-2021 tetanus toxoid, redu frankie diphtheria toxoid, and acellular pertussis vaccine, adsorbed [facility] Payers Date Payer Category Payer Self-pay [id number] 2021 Medicare [id number] Unknown [place] [employer] [id number] Unknown [id number] Unknown [id number] Unknown [id number] [id number] Unknown [id number] [id number] Unknown [id number] [id number] [id number] Social History Date Type Detail Facility Start: 12-02-2021 End: 12-27-2022 Tobacco smoking status NHIS Unknown if ever smoked [facility] Start: 12-18-2018 Non-smoker [facility] Start: 1950 Sex Assigned At Male W [facility] Start: 12-27-2022 End: 07-23-2024 Tobacco smoking status NHIS Never smoked tobacco (finding) [facility] Start: 05-31-2024 End: 06-02-2024 Sex Male (finding) [facility] Medical Equipment Procedure Code Equipment Code Equipment Origin al Text Equipment Identifier Dates Lithotripsy, [id number] ([id number]) Polymeric uret eral stent [id number] FDA Start: 12-19-2021 Goals Date Patient Goal Desired Activity /State Functional Status Date Assessment Result Facility 01-18-2022 Functional status Activity Ability Indepe ndent [facility] Work Phone: 01-17-2022 Functional status Ambulates [facility] Work Phone: Mental Status Date Assessment Result Facility 07-23-2024 Cognitive function Level Of Cons ciousness Awake;Alert;Appropriate;Follow s Commands [facility] Work Phone: 12-27-2022 Cognitive function Level Of Cons ciousness Awake;Alert;Appropriate;Follow s Commands [facility] Work Phone: 01-18-2022 Cognitive function Voice/Name [facility] Work Phone: 01-16-2022 Cognitive function Level Of Cons ciousness Awake;Alert;Appropriate;Follow s Commands [facility] Work Phone: 12-19-2021 Cognitive function Touch/Shaking [facility] Work Phone: 12-19-2021 Cognitive function Patient Orien tation Person;Place;Time [facility] Work Phone: Radiology Diagnostic study note 07-23-2024 Note Date & Type Note Facility 07-23-2024 Radiology Diagnostic study note [facility] Imaging Services [address] [place] [address] Chest PA and Lateral MR#: [id number] Acct: [id number] Name: YANET CORRIGAN Rep #: [id number] : [id number] M [id number] From: Jaguar Ontiveros MD PCP: Dr. Davis Armstrong MD Status: RE G ER Study:Chest PA and Lateral Date of Exam: 07/23/24 Exam# [id number] Ordering Dr: Osmany Evans DO PROCEDURE: CHEST PA AND LATERAL 07/23/2024 REASON FOR EXAM: COUGH TECHNIQUE: Frontal and lateral views of the chest. COMPARISON: 12/27/2022 FINDINGS: The lungs appear clear. Pulmonary vascularity appears within limits. No pleural effusion. The cardiac and mediastinal contours appear within limits. RAD/Chest PA and Lateral IMPRESSION: No evidence of acute disease. Reading Location: [facility] CC: Dr. Osmany Evans DO; Dr. Davis Armstrong MD ~ Forensic Psychiatrist: Signed [facility] Evaluation note Note Date & Type Note Facility Evaluation note No assessment information availa ble [facility] Work Phone: Hospital Discharge instructions Note Date & Type Note Facility Hospital Discharge instructions Ambulatory [id number] Lead EKG [[facility]] Time Frame: 01/16/22, Location: None Selected Additional Instructions Implant Used?: No [facility] Work Phone: Reason for referral (narrative) Note Date & Type Note Facility Reason for referral (narrative) No reason for referral information available [facility] Work Phone: Chief Complaint and Reason for [...] Yes December 02, 2021 6:54pm Power of Bingo Clerk No November 6:54pm Advance Directive Response Recorded Date/ Time Living Will No December 12, 2021 10:17am Power of Bingo Clerk No November 10:17am Advance Directive Response Recorded Date/ Time Living Will No January 09 2:13pm Power of Bingo Clerk No January 09, 2022 2:13pm Advance Directive Response Recorded Date/ Time Living Will Yes January 18 4:22pm Power of Bingo Clerk No January 18, 2022 4:22pm Advance Directive Response Recorded Date/ Time Living Will Yes December 27 7:46am Power of Bingo Clerk No December 27, 2022 7:46am Advance Directive Response Recorded Date/ Time Living Will Yes December 27 6:46am Power of Bingo Clerk No December 27, 2022 6:46am Advance Directive Response Recorded Date/ Time Do you have a Healthcare Power of Bingo Clerk? No July 23, 2024 7:21am Summary Purpose [...] section and content) DATE CREATED AUTHOR 07/30/2024 [facility] FOR RECORDS PERTAINING TO PATIENTS [...] BE BASED ON THE PRIMARY CLINICAL RECORDS. [employer] [facility]. provides no warranty or guarantee of the accuracy or completeness of information in this document.
--- OUTSIDE RECORDS SUMMARY | 2024-09-18 16:41 | XMS RPT_ITS | CCD ---
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 Davis Wu Primary Care Provider [phone] Patti SANTIAGO, Dr. Davis Wu Attending Provider Patti SANTIAGO, Dr. Davis Wu Referring Provider [phone] Dr. Osmany Evans DO Emergency Provider [phone] Davis Armstrong Primary Care Unavailable Davis Armstrong [...] sources) Penicillins Allergy to substance 12-19-2021 Other [facility] (1 source) Penicillins Drug allergy (disorder) 07-23-2024 [facility] Repository Medications Current Medications Medication Drug [...] infection level. Enterococcus faecalis Beta Lactamase-Reportable Negative [place] Count 80,000-100,000 GNR [place] Count <1000 Gram negative buffy Ampicillin Islt YOLANDA <=2 Ciprofloxacin Islt YOLANDA >=8 R Gentamicin Synergy Susc Islt SYN-R levoFLOXacin Islt YOLANDA >=8 R Linezolid Islt YOLANDA 2 S Nitrofurantoin Islt YOLANDA <=16 S Streptomycin High Pot Susc Islt SYN-S S Tetracycline Islt YOLANDA >=16 R Vancomycin Islt YOLANDA 1 S Normal [facility] Comment on above: Performed By: #### M 100.2200 #### [facility] Laboratory [address] [place], [address] Absolute lymphocyte countOrd ered By: Osmany Evans on 07-23-2024 Lymphocytes Auto (Unsp spec) [#/Vol] 0.43 10*3/uL Low 0.83-4.51 [facility] Absolute neutrophil countOrd ered By: Osmany Evans on 07-23-2024 Neutrophils (Bld) [#/Vol] 9.3 10*3/uL High 2.0-7.7 [facility] Anion gap in Serum or Plasma Ordered By: Osmany Evans on 07-23-2024 Anion gap [Moles/Vol] 11 mmol/L 5-15 [facility] Automated lymphocyte count a s percentage of total leukocytesOrdered By: Osmany Evans on 07-23-2024 Lymphocytes/100 WBC Auto (Unsp spec) 4.0 % Low 19-41 [facility] BUN/creatinine ratioOrdered By: Osmany Evans on 07-23-2024 Urea nitrogen/Creatinine [Mass ratio] 19.5 mg/mg 10-20 [facility] Basic Metabolic Profile (BMP )on 07-23-2024 BUN/CRE 19.5 RATIO Normal - [facility] Comment on above: Performed By: #### L 500.2500, L100.0100 #### [facility] Laboratory [address] [place], [address] Calcium [Mass/Vol] 9.1 mg/dL Normal 7.6-11.0 [facility] Comment on above: Performed By: #### L 500.2500, L100.0100 #### [facility] Laboratory [address] [place], [address] Chloride [Moles/Vol] 102 mmol/L Normal 98-108 [facility] Comment on above: Performed By: #### L 500.2500, L100.0100 #### [facility] Laboratory [address] [place], [address] CO2 [Moles/Vol] 23.1 mmol/L Normal 21.0-32.0 [facility] Comment on above: Performed By: #### L 500.2500, L100.0100 #### [facility] Laboratory [address] [place], [address] Creatinine [Mass/Vol] 0.95 mg/dL Normal 0.70-1.20 [facility] Comment on above: Performed By: #### L 500.2500, L100.0100 #### [facility] Laboratory [address] [place], [address] ECRCL 74.77 ml/min Normal 50-250 [facility] Comment on above: Performed By: #### L 500.2500, L100.0100 #### [facility] Laboratory [address] [place], [address] GAP 11 Normal 5-15 [facility] Comment on above: Performed By: #### L 500.2500, L100.0100 #### [facility] Laboratory [address] [place], [address] GFR/1.73 sq M.predicted among non-blacks MDRD (S/P/Bld) [Vol rate/Area] 84 mL/min/{1.73_m2} Normal >60 [facility] Comment on above: Result Comment: mL/m in/1.73m2 CKD-EPI Creatinine Equation (2020) Performed By: #### L 500.2500, L100.0100 #### [facility] Laboratory [address] [place], [address] Glucose [Mass/Vol] 100 mg/dL High 70-99 [facility] Comment on above: Performed By: #### L 500.2500, L100.0100 #### [facility] Laboratory [address] [place], [address] Potassium [Moles/Vol] 3.9 mmol/L Normal 3.3-5.1 [facility] Comment on above: Performed By: #### L 500.2500, L100.0100 #### [facility] Laboratory [address] [place], [address] Sodium [Moles/Vol] 136 mmol/L Normal 133-145 [facility] Comment on above: Performed By: #### L 500.2500, L100.0100 #### [facility] Laboratory [address] [place], [address] Urea nitrogen [Mass/Vol] 19 mg/dL Normal 4-19 [facility] Comment on above: Performed By: #### L 500.2500, L100.0100 #### [facility] Laboratory [address] [place], [address] Basophil percentageOrdered B y: Osmany Evans on 07-23-2024 Basophils/100 WBC (Bld) 0.4 % 0-1 [facility] Bilirubin Test strip Ql (U)O rdered By: Osmany Evans on 07-23-2024 Bilirubin Ql (U) Negative Negative [facility] CBC W/Diff, Automatedon Absolute Lymph 0.43 X10 3/uL Low 0.83-4.51 [facility] Comment on above: Performed By: #### L 500.2500, L100.0100 #### [facility] Laboratory [address] [place], [address] Absolute Neut 9.3 X10 3/uL High 2.0-7.7 [facility] Comment on above: Performed By: #### L 500.2500, L100.0100 #### [facility] Laboratory [address] [place], [address] Basophils/100 WBC (Bld) 0.4 % Normal 0-1 [facility] Comment on above: Performed By: #### L 500.2500, L100.0100 #### [facility] Laboratory [address] [place], [address] Eosinophils/100 WBC (Bld) 0.2 % Normal 0-5 [facility] Comment on above: Performed By: #### L 500.2500, L100.0100 #### [facility] Laboratory [address] [place], [address] Erythrocyte distribution width (RBC) [Ratio] 13.3 % Normal 11.6-14.6 [facility] Comment on above: Performed By: #### L 500.2500, L100.0100 #### [facility] Laboratory [address] [place], [address] Hematocrit (Bld) [Volume fraction] 40.1 % Normal 40-54 [facility] Comment on above: Performed By: #### L 500.2500, L100.0100 #### [facility] Laboratory [address] [place], [address] Hemoglobin (Bld) [Mass/Vol] 13.8 g/dL Normal 13.0-16.5 [facility] Comment on above: Performed By: #### L 500.2500, L100.0100 #### [facility] Laboratory [address] [place], [address] IG% 0.600 Normal 0.0-0.9 [facility] Comment on above: Result Comment: IG% - Immature Granulocytes (promyelocytes, myelocytes and metamyelocytes) > 1% indicates that a LEFT SHIFT is Present. Performed By: #### L 500.2500, L100.0100 #### [facility] Laboratory [address] [place], [address] Lymphocytes/100 WBC (Bld) 4.0 % Low 19-41 [facility] Comment on above: Performed By: #### L 500.2500, L100.0100 #### [facility] Laboratory [address] [place], [address] MCH (RBC) [Entitic mass] 32.0 pg Normal 27.0-32.0 [facility] Comment on above: Performed By: #### L 500.2500, L100.0100 #### [facility] Laboratory [address] [place], [address] MCHC (RBC) [Mass/Vol] 34.4 g/dL Normal 32-36 [facility] Comment on above: Performed By: #### L 500.2500, L100.0100 #### [facility] Laboratory [address] [place], [address] MCV (RBC) [Entitic vol] 93.0 fL Normal 80-94 [facility] Comment on above: Performed By: #### L 500.2500, L100.0100 #### [facility] Laboratory [address] [place], [address] Monocytes/100 WBC (Bld) 8.2 % Normal 0-10 [facility] Comment on above: Performed By: #### L 500.2500, L100.0100 #### [facility] Laboratory [address] [place], [address] Neutrophils/100 WBC (Bld) 86.6 % High 47-70 [facility] Comment on above: Performed By: #### L 500.2500, L100.0100 #### [facility] Laboratory [address] [place], [address] Nucleated RBC (Bld) [#/Vol] 0 10*3/uL Normal 0-5 [facility] Comment on above: Performed By: #### L 500.2500, L100.0100 #### [facility] Laboratory [address] [place], [address] Platelet mean volume (Bld) [Entitic vol] 10.4 fL Normal 6.2-12.0 [facility] Comment on above: Performed By: #### L 500.2500, L100.0100 #### [facility] Laboratory [address] [place], [address] Platelets (Bld) [#/Vol] 224 10*3/uL Normal 150-450 [facility] Comment on above: Performed By: #### L 500.2500, L100.0100 #### [facility] Laboratory [address] [place], [address] RBC (Bld) [#/Vol] 4.31 10*6/uL Low 4.6-6.2 [facility] Comment on above: Performed By: #### L 500.2500, L100.0100 #### [facility] Laboratory [address] [place], [address] RDW SD 45.2 fl High 35.1-43.9 [facility] Comment on above: Performed By: #### L 500.2500, L100.0100 #### [facility] Laboratory [address] [place], [address] WBC (Bld) [#/Vol] 10.7 10*3/uL Normal 4.4-11.0 [facility] Comment on above: Performed By: #### L 500.2500, L100.0100 #### [facility] Laboratory [address] [place], [address] Carbon dioxide, total [Moles /volume] in Central venous bloodOrdered By: Osmany Evans on 07-23-2024 CO2 [Moles/Vol] 23.1 mmol/L 21.0-32.0 [facility] Chest PA and Lateralon 07-23 Chest PA and Lateral [facility] Services [address] [place] [address] Chest PA and Lateral MR#: [id number] Acct: [id number] Name: YANET CORRIGAN Rep #: [id number] : 1950 M 74 From: Naveen Ontiveros MD PCP: Dr. Davis Armstrong MD Status: [facility] ER Study: Chest PA and Lateral Date of Exam: 07/23/24 Exam# [id number] Ordering Dr: Osmany Evans DO PROCEDURE: CHEST PA AND LATERAL 07/23/2024 REASON FOR EXAM: COUGH TECHNIQUE: Frontal and lateral views of the chest. COMPARISON: 12/27/2022 FINDINGS: The lungs appear clear. Pulmonary vascularity appears within limits. No pleural effusion. The cardiac and mediastinal contours appear within limits. RAD/Chest PA and Lateral IMPRESSION: No evidence of acute disease. Reading Location: [facility] CC: Dr. Osmany Evans DO; Dr. 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 Davis Armstrong MD Status:[facility] ER Location: ED HPI History of Present [...] and bronchitis (more content not included)... Normal [facility] Eosinophil percentageOrdered By: Osmany Evans on 07-23-2024 Eosinophils/100 WBC (Bld) 0.2 % 0-5 [facility] Erythrocyte distribution wid th ratioOrdered By: Osmany Evans on 07-23-2024 Erythrocyte distribution width (RBC) [Ratio] 13.3 % 11.6-14.6 [facility] Erythrocyte distribution wid th standard deviationOrdered By: Osmany Evans on 07-23-2024 Erythrocyte distribution width (RBC) [Ratio] 45.2 fl High 35.1-43.9 [facility] Glomerular filtration rate ( GFR) estimation/1.73 sq m using serum, plasma, or whole bOrdered By: Osmany Evans on 07-23-2024 GFR/1.73 sq M.predicted among non-blacks MDRD (S/P/Bld) [Vol rate/Area] 84 mL/min/{1.73_m2} >60 [facility] Comment on above: mL/min/1.73m2 CKD-EP I Creatinine Equation (2020) Hematocrit Auto (Bld) [Volum e fraction]Ordered By: Osmany Evans on 07-23-2024 Hematocrit (Bld) [Volume fraction] 40.1 % 40-54 [facility] Hemoglobin measurementOrdere d By: Osmany Evans on 07-23-2024 Hemoglobin (Bld) [Mass/Vol] 13.8 g/dL 13.0-16.5 [facility] Immature granulocytes/100 WB C Auto (Bld)Ordered By: Osmany Evans on 07-23-2024 Immature granulocytes/100 WBC (Bld) 0.600 % 0.0-0.9 [facility] Comment on above: IG% - Immature Granu locytes (promyelocytes, myelocytes and metamyelocytes) > 1% indicates that a LEFT SHIFT is Present. Influenza virus A and B and SARS-CoV-2 (COVID-19) and Respiratory syncytial virus RNAOrdered By: Osmany Evans on 07-23-2024 SARS-CoV-2 (COVID-19) RNA AMELIA+probe Ql (Unsp spec) [facility] Ketones Test strip Ql (U)Ord ered By: Osmany Evans on 07-23-2024 Ketones Ql (U) 5 mg/dl High Negative [facility] L499.0042on 07-23-2024 Trop T High Sen 33 ng/L High <=22 [facility] Comment on above: Performed By: #### L 500.2500, L100.0100 #### [facility] Laboratory [address] [place] [address]. [place], [address] L499.0043on 05-09-2025 Trop T High Sen Normal <=22 [facility] Comment on above: Result Comment: LUIZ ENT DISCHARGED Performed By: #### L 499.0043 #### [facility] Laboratory [address] [place], [address] L501.4021on 07-23-2024 Trop T High Sen 36 ng/L High <=22 [facility] Comment on above: Performed By: #### L 501.4021 ####[facility] [address] [place], [address] M100.678on 07-23-2024 M100.678 Pending SARS-CoV-2 (COVID 19) Negative INFLUENZA A Negative INFLUENZA B Negative RSV PCR Negative Normal [facility] Comment on above: Performed By: #### L 500.2500, L100.0100 #### [facility] Laboratory [address] [place], [address] MCV (mean corpuscular volume ) determinationOrdered By: Osmany Evans on 07-23-2024 MCV (RBC) [Entitic vol] 93.0 fL 80-94 [facility] Mean corpuscular hemoglobin (MCH) determinationOrdered By: Osmany Evans on 07-23-2024 MCH (RBC) [Entitic mass] 32.0 pg 27.0-32.0 [facility] Mean corpuscular hemoglobin concentration (MCHC) determinationOrdered By: Osmany Evans on 07-23-2024 MCHC (RBC) [Mass/Vol] 34.4 g/dL 32-36 [facility] Mean platelet volume determi nationOrdered By: Osmany Evans on 07-23-2024 Platelet mean volume (Bld) [Entitic vol] 10.4 fL 6.2-12.0 [facility] Microscopic analysis of urin e for red blood cells (RBC)Ordered By: Osmany Evans on 07-23-2024 Microscopic analysis of urine for red blood cells (RBC) 5-10 SEEN /hpf 0-5 [facility] Monocyte percentageOrdered B y: Osmany Evans on 07-23-2024 Monocytes/100 WBC (Bld) 8.2 % 0-10 [facility] Mucus LM Ql (Urine sed)Order ed By: Osmany Evans on 07-23-2024 Mucus Ql (Urine sed) 0 SEEN /hpf [facility] Neutrophil percentageOrdered By: Osmany Evans on 07-23-2024 Neutrophils/100 WBC (Bld) 86.6 % High 47-70 [facility] Nitrite Test strip Ql (U)Ord ered By: Osmany Evans on 07-23-2024 Nitrite Ql (U) Negative Negative [facility] Nucleated red blood cell per centageOrdered By: Osmany Evans on 07-23-2024 Nucleated RBC/100 WBC (Bld) [Ratio] 0 % 0-5 [facility] Platelet countOrdered By: Mark Evans on 07-23-2024 Platelets (Bld) [#/Vol] 224 10*3/uL 150-450 [facility] Potassium measurement (mass/ volume)Ordered By: Osmany Evans on 07-23-2024 Potassium (Unsp spec) [Mass/Vol] 3.9 mmol/L 3.3-5.1 [facility] Protein Test strip Ql (U)Ord ered By: Osmany Evans on 07-23-2024 Protein Ql (U) 100 mg/dl High Negative [facility] RBC Auto (Bld) [#/Vol]Ordere d By: Osmany Evans on 07-23-2024 RBC (Bld) [#/Vol] 4.31 10*6/uL Low 4.6-6.2 [facility] Serum creatinine measurement (mass/volume)Ordered By: Osmany Evans on 07-23-2024 Creatinine [Mass/Vol] 0.95 mg/dL 0.70-1.20 [facility] Serum glucose measurement (m ass/volume)Ordered By: Osmany Evans on 07-23-2024 Glucose [Mass/Vol] 100 mg/dL High 70-99 [facility] Serum or plasma calcium ash urement (mass/volume)Ordered By: Osmany Evans on 07-23-2024 Calcium [Mass/Vol] 9.1 mg/dL 7.6-11.0 [facility] Serum or plasma urea nitroge n measurement (mass/volume)Ordered By: Osmany Evans on 07-23-2024 Urea nitrogen [Mass/Vol] 19 mg/dL 4-19 [facility] Sodium levelOrdered By: Osmany Evans on 07-23-2024 Sodium [Moles/Vol] 136 mmol/L 133-145 [facility] Squamous epithelial cells de tection in urine sediment by light microscopyOrdered By: Osmany Evans on 07-23-2024 Epithelial cells.squamous LM Ql (Urine sed) 0 SEEN /hpf 0-5 [facility] Troponin T.cardiac [Mass/vol ume] in Serum or Plasma by High sensitivity methodOrdered By: Osmany Evans on 07-23-2024 Troponin T.cardiac High sensitivity method [Mass/Vol] 33 ng/L High <22 [facility] Troponin T.cardiac High sensitivity method [Mass/Vol] 36 ng/L High <22 [facility] Urinalysis, Completeon 07-23 BACTERIA 1+ /hpf Normal None Seen [facility] Comment on above: Order Comment: CLEAN CATCH Performed By: #### L 500.2500, L100.0100 #### [facility] Laboratory [address] [place], [address] RBC 5-10 SEEN Normal [address] Comment on above: Order Comment: CLEAN CATCH Performed By: #### L 500.2500, L100.0100 #### [facility] Laboratory [address] [place], [address] WBC 10-25 SEEN Normal [address] [place] [address] Comment on above: Order Comment: CLEAN CATCH Performed By: #### L 500.2500, L100.0100 #### [facility] Laboratory [address] [place], [address] EPI,SQUAMOUS 0 SEEN Normal 0-5 [facility] Comment on above: Order Comment: CLEAN CATCH Performed By: #### L 500.2500, L100.0100 #### [facility] Laboratory [address] [place], [address] Mucus Ql (Urine sed) 0 SEEN Normal [facility] Comment on above: Order Comment: CLEAN CATCH Performed By: #### L 500.2500, L100.0100 #### [facility] [place], [address] Urine clarityOrdered By: Olga Evans on 07-23-2024 Clarity (U) Clear Clear [facility] Urine color determinationOrd ered By: Osmany Evans on 07-23-2024 Color (U) Yellow Yellow [facility] Urine glucose detectionOrder ed By: Osmany Evans on 07-23-2024 Glucose Ql (U) Normal mg/dl Normal [facility] Urine leukocyte esterase det ection by dipstickOrdered By: Osmany Evans on 07-23-2024 Leukocyte esterase Test strip Ql (U) 25 /ul High Negative [facility] Urine pHOrdered By: Osmany kerns on 07-23-2024 pH (U) 6.5 [pH] 5.0 - 8.0 [facility] Urine sediment bacteria coun t by microscopy (number/high power field)Ordered By: Osmany Evans on 07-23-2024 Bacteria LM.HPF (Urine sed) [#/Area] 1 /[HPF] None Seen [facility] Urine specific gravity measu rementOrdered By: Osmany Evans on 07-23-2024 Specific gravity (U) [Rel density] 1.010 1.002-1.030 [facility] Urine urobilinogen measureme ntOrdered By: Osmany Evans on 07-23-2024 Urobilinogen Ql (U) 1 mg/dl High Normal [facility] White blood cell (WBC) count Ordered By: Osmany Evans on 07-23-2024 WBC (Bld) [#/Vol] 10.7 10*3/uL 4.4-11.0 [facility] White blood cell countOrdere d By: Osmany Evans on 07-23-2024 White blood cell count 10-25 SEEN /hpf 0-5 [facility] Calculated total iron bindin g capacityOrdered By: Davis Armstrong on 05-26-2024 Total Iron Binding Capacity 299 ug/dL 250-450 [facility] Ferritinon 05-26-2024 Ferritin [Mass/Vol] 273 ng/mL Normal 37-417 [facility] Comment on above: Performed By: #### L 500.2500, L100.0100 #### [facility] Laboratory [address] [place], [address] Iron (Unsp spec) [Mass/Mass] Ordered By: Davis Armstrong on 05-26-2024 Iron [Mass/Vol] 112 ug/dL 65-175 [facility] Iron measurement (mass/mass) Ordered By: Davis Armstrong on 05-26-2024 Iron (Unsp spec) [Mass/Mass] 112 ug/dL 65-175 [facility] Iron saturation [Mass fracti on]Ordered By: Davis Armstrong on 05-26-2024 Iron Saturation 37.0 % 9-55 [facility] Iron+Iron Binding Capacityon 05-26-2024 Iron [Mass/Vol] 112 ug/dL Normal 65-175 [facility] Comment on above: Performed By: #### L 500.2500, L100.0100 #### [facility] Laboratory [address] [place], [address] IRON SATURATION 37.0 Normal 9-55 [facility] Comment on above: Performed By: #### L 500.2500, L100.0100 #### [facility] Laboratory [address] [place], [address] TIBC 299 ug/dL Normal 250-450 [facility] Comment on above: Performed By: #### L 500.2500, L100.0100 #### [facility] Laboratory [address] [place], [address] UIBC 187 ug/dL Low 228-428 [facility] Comment on above: Performed By: #### L 500.2500, L100.0100 #### [facility] Laboratory [address] [place], [address] L503.0106on 05-26-2024 Cobalamin (Vitamin B12) [Mass/Vol] 651 pg/mL Normal 180-914 [facility] Comment on above: Performed By: #### L 500.2500, L100.0100 #### [facility] [place], [address] No Panel InformationOrdered By: Davis Armstrong on 05-26-2024 Unsaturated Iron Binding Capacity 187 ug/dL Low 228-428 [facility] Serum or plasma ferritin elham surement (mass/volume)Ordered By: Davis Armstrong on 05-26-2024 Ferritin [Mass/Vol] 273 ng/mL 37-417 [facility] Serum or plasma iron saturat ion measurement (mass fraction)Ordered By: Davis Armstrong on 05-26-2024 Iron saturation [Mass fraction] 37.0 % 9-55 [facility] Vitamin B12 ser/plasOrdered By: Davis Armstrong on 05-26-2024 Cobalamin (Vitamin B12) [Mass/Vol] 651 pg/mL 180-914 [facility] Absolute lymphocyte countOrd ered By: Davis Armstrong on 05-19-2024 Lymphocytes Auto (Unsp spec) [#/Vol] 0.85 10*3/uL 0.83-4.51 [facility] Absolute neutrophil countOrd ered By: Davis Armstrong on 05-19-2024 Neutrophils (Bld) [#/Vol] 4.0 10*3/uL 2.0-7.7 [facility] Albumin DL <= 20 mg/L (U) [M ass/Vol]Ordered By: Davis Armstrong on 05-19-2024 Urine Random Microalbumin 28.6 mg/L NO RANGE EST. [facility] [facility] Anion gap in Serum or Plasma Ordered By: Davis Armstrong on 05-19-2024 Anion gap [Moles/Vol] 13 mmol/L 5-15 [facility] Automated lymphocyte count a s percentage of total leukocytesOrdered By: Davis Armstrong on 05-19-2024 Lymphocytes/100 WBC Auto (Unsp spec) 15.5 % Low 19-41 [facility] BUN/creatinine ratioOrdered By: Davis Armstrong on 05-19-2024 Urea nitrogen/Creatinine [Mass ratio] 25.9 mg/mg High 10-20 [facility] Basophil percentageOrdered B y: Davis Armstrong on 05-19-2024 Basophils/100 WBC (Bld) 1.1 % High 0-1 [facility] Bilirubin, totalOrdered By: Davis Armstrong on 05-19-2024 Bilirubin [Mass/Vol] 0.61 mg/dL 0.00-1.30 [facility] CBC W/Diff, Automatedon Absolute Lymph 0.85 X10 3/uL Normal 0.83-4.51 [facility] Comment on above: Order Comment: Order Date: 05/19/24Order Info: [id number] - CBCD Performed By: #### L 100.0100, L501.9985, L501.5200, L501.9520, L500.4050, L500.4100 ####[facility] [address] [place], [address] Absolute Neut 4.0 X10 3/uL Normal 2.0-7.7 [facility] Comment on above: Order Comment: Order Date: 05/19/24Order Info: [id number] - CBCD Performed By: #### L 100.0100, L501.9985, L501.5200, L501.9520, L500.4050, L500.4100 ####[facility] [address] [place], [address] Basophils/100 WBC (Bld) 1.1 % High 0-1 [facility] Comment on above: Order Comment: Order Date: 05/19/24Order Info: [id number] - CBCD Performed By: #### L 100.0100, L501.9985, L501.5200, L501.9520, L500.4050, L500.4100 ####[facility] [address] [place], [address] Eosinophils/100 WBC (Bld) 2.2 % Normal 0-5 [facility] Comment on above: Order Comment: Order Date: 05/19/24Order Info: [id number] - CBCD Performed By: #### L 100.0100, L501.9985, L501.5200, L501.9520, L500.4050, L500.4100 ####[facility] [address] [place], [address] Erythrocyte distribution width (RBC) [Ratio] 12.7 % Normal 11.6-14.6 [facility] Comment on above: Order Comment: Order Date: 05/19/24Order Info: [id number] - CBCD Performed By: #### L 100.0100, L501.9985, L501.5200, L501.9520, L500.4050, L500.4100 ####[facility] [address] [place], [address]( Hematocrit (Bld) [Volume fraction] 38.2 % Low 40-54 [facility] Comment on above: Order Comment: Order Date: 05/19/24Order Info: [id number] - CBCD Performed By: #### L 100.0100, L501.9985, L501.5200, L501.9520, L500.4050, L500.4100 ####[facility] [address] [place], [address] Hemoglobin (Bld) [Mass/Vol] 12.7 g/dL Low 13.0-16.5 [facility] Comment on above: Order Comment: Order Date: 05/19/24Order Info: [id number] - CBCD Performed By: #### L 100.0100, L501.9985, L501.5200, L501.9520, L500.4050, L500.4100 ####[facility] [address] [facility] [place], [address] IG% 0.400 Normal 0.0-0.9 [facility] Comment on above: Order Comment: Order Date: 05/19/24Order Info: [id number] - CBCD Result Comment: IG% - Immature Granulocytes (promyelocytes, myelocytes and metamyelocytes) > 1% indicates that a LEFT SHIFT is Present. Performed By: #### L 100.0100, L501.9985, L501.5200, L501.9520, L500.4050, L500.4100 ####[facility] [address] [place], [address] Lymphocytes/100 WBC (Bld) 15.5 % Low 19-41 [facility] Comment on above: Order Comment: Order Date: 05/19/24Order Info: [id number] - CBCD Performed By: #### L 100.0100, L501.9985, L501.5200, L501.9520, L500.4050, L500.4100 ####[facility] [address] [place], [address] MCH (RBC) [Entitic mass] 30.8 pg Normal 27.0-32.0 [facility] Comment on above: Order Comment: Order Date: 05/19/24Order Info: [id number] - CBCD Performed By: #### L 100.0100, L501.9985, L501.5200, L501.9520, L500.4050, L500.4100 ####[facility] [address] [place], [address] MCHC (RBC) [Mass/Vol] 33.2 g/dL Normal 32-36 [facility] Comment on above: Order Comment: Order Date: 05/19/24Order Info: [id number] - CBCD Performed By: #### L 100.0100, L501.9985, L501.5200, L501.9520, L500.4050, L500.4100 ####[facility] [address] [place], [address] MCV (RBC) [Entitic vol] 92.7 fL Normal 80-94 [facility] Comment on above: Order Comment: Order Date: 05/19/24Order Info: [id number] - CBCD Performed By: #### L 100.0100, L501.9985, L501.5200, L501.9520, L500.4050, L500.4100 ####[facility] [address] [place], [address] Monocytes/100 WBC (Bld) 7.5 % Normal 0-10 [facility] Comment on above: Order Comment: Order Date: 05/19/24Order Info: [id number] - CBCD Performed By: #### L 100.0100, L501.9985, L501.5200, L501.9520, L500.4050, L500.4100 ####[facility] [address] [place], [address] Neutrophils/100 WBC (Bld) 73.3 % High 47-70 [facility] Comment on above: Order Comment: Order Date: 05/19/24Order Info: [id number] - CBCD Performed By: #### L 100.0100, L501.9985, L501.5200, L501.9520, L500.4050, L500.4100 ####[facility] [address] [place], [address] Nucleated RBC (Bld) [#/Vol] 0 10*3/uL Normal 0-5 [facility] Comment on above: Order Comment: Order Date: 05/19/24Order Info: [id number] - CBCD Performed By: #### L 100.0100, L501.9985, L501.5200, L501.9520, L500.4050, L500.4100 ####[facility] [address] [place], [address] Platelet mean volume (Bld) [Entitic vol] 10.8 fL Normal 6.2-12.0 [facility] Comment on above: Order Comment: Order Date: 05/19/24Order Info: [id number] - CBCD Performed By: #### L 100.0100, L501.9985, L501.5200, L501.9520, L500.4050, L500.4100 ####[facility] [address] [place], [address] Platelets (Bld) [#/Vol] 256 10*3/uL Normal 150-450 [facility] Comment on above: Order Comment: Order Date: 05/19/24Order Info: [id number] - CBCD Performed By: #### L 100.0100, L501.9985, L501.5200, L501.9520, L500.4050, L500.4100 ####[facility] [address] [place], [address] RBC (Bld) [#/Vol] 4.12 10*6/uL Low 4.6-6.2 [facility] Comment on above: Order Comment: Order Date: 05/19/24Order Info: [id number] - CBCD Performed By: #### L 100.0100, L501.9985, L501.5200, L501.9520, L500.4050, L500.4100 ####[facility] [address] [place], [address] RDW SD 43.1 fl Normal 35.1-43.9 [facility] Comment on above: Order Comment: Order Date: 05/19/24Order Info: [id number] - CBCD Performed By: #### L 100.0100, L501.9985, L501.5200, L501.9520, L500.4050, L500.4100 ####[facility] [address] [place], [address] WBC (Bld) [#/Vol] 5.5 10*3/uL Normal 4.4-11.0 [facility] Comment on above: Order Comment: Order Date: 05/19/24Order Info: [id number] - CBCD Performed By: #### L 100.0100, L501.9985, L501.5200, L501.9520, L500.4050, L500.4100 ####[facility] [address] [place], [place], [address] Calculated very low density lipoprotein (VLDL) cholesterol measurementOrdered By: Davis Armstrong on 05-19-2024 Calculated very low density lipoprotein (VLDL) cholesterol measurement 10 mg/dL 5-40 [facility] VLDL Cholesterol 10 mg/dL 5-40 [facility] Carbon dioxide, total [Moles /volume] in Central venous bloodOrdered By: Davis Armstrong on 05-19-2024 CO2 [Moles/Vol] 19.7 mmol/L Low 21.0-32.0 [facility] Chloride assayOrdered By: Anuradha Armstrong on 05-19-2024 Chloride [Moles/Vol] 106 mmol/L 98-108 [facility] Comprehensive Metabolic Prof ilon 05-19-2024 Albumin [Mass/Vol] 4.1 g/dL Normal 3.4-4.8 [facility] Comment on above: Order Comment: Order Date: 05/19/24Order Info: [id number] - CMPOrder Info: [id number] - LIPIDOrder Info: - MGOrder Info: 3 - TSH Performed By: #### L 100.0100, L501.9985, L501.5200, L501.9520, L500.4050, L500.4100 ####[facility] [address] [place], [place], [address] Albumin/Globulin [Mass ratio] 1.5 {ratio} Normal 0.9-2.4 [facility] Comment on above: Order Comment: Order Date: 05/19/24Order Info: [id number] - CMPOrder Info: [id number] - LIPIDOrder Info: - MGOrder Info: [id number] - TSH Performed By: #### L 100.0100, L501.9985, L501.5200, L501.9520, L500.4050, L500.4100 ####[facility] [address] [place], [address] ALK PHOS 93 U/L Normal 40-129 [facility] Comment on above: Order Comment: Order Date: 05/19/24Order Info: [id number] - CMPOrder Info: [id number] - LIPIDOrder Info: [id number] - MGOrder Info: [id number] - TSH Performed By: #### L 100.0100, L501.9985, L501.5200, L501.9520, L500.4050, L500.4100 ####[facility] [address] [place], [address] ALT [Catalytic activity/Vol] 16 U/L Normal <=46 [facility] Comment on above: Order Comment: Order Date: 05/19/24Order Info: 86-1 - CMPOrder Info: [id number] - LIPIDOrder Info: [id number] - MGOrder Info: [id number] - TSH Performed By: #### L 100.0100, L501.9985, L501.5200, L501.9520, L500.4050, L500.4100 ####[facility] [address] [place], [address] AST [Catalytic activity/Vol] 28 U/L Normal <=37 [facility] Comment on above: Order Comment: Order Date: 05/19/24Order Info: [id number] - CMPOrder Info: [id number] - LIPIDOrder Info: [id number] - MGOrder Info: [id number] - TSH Performed By: #### L 100.0100, L501.9985, L501.5200, L501.9520, L500.4050, L500.4100 ####[facility] [address] [place], [address] Bilirubin [Mass/Vol] 0.61 mg/dL Normal 0.00-1.30 [facility] Comment on above: Order Comment: Order Date: 05/19/24Order Info: [id number] - CMPOrder Info: [id number] - LIPIDOrder Info: [id number] - MGOrder Info: [id number] - TSH Performed By: #### L 100.0100, L501.9985, L501.5200, L501.9520, L500.4050, L500.4100 ####[facility] [address] [place], [address] BUN/CRE 25.9 RATIO High 10-20 [facility] Comment on above: Order Comment: Order Date: 05/19/24Order Info: [id number] - CMPOrder Info: [id number] - LIPIDOrder Info: [id number] - MGOrder Info: 3 - TSH Performed By: #### L 100.0100, L501.9985, L501.5200, L501.9520, L500.4050, L500.4100 ####[facility] [address] [place], [address] Calcium [Mass/Vol] 9.0 mg/dL Normal 7.6-11.0 [facility] Comment on above: Order Comment: Order Date: 05/19/24Order Info: 86-1 - CMPOrder Info: [id number] - LIPIDOrder Info: - MGOrder Info: [id number] - TSH Performed By: #### L 100.0100, L501.9985, L501.5200, L501.9520, L500.4050, L500.4100 ####[facility] [address] [place], [address] Chloride [Moles/Vol] 106 mmol/L Normal 98-108 [facility] Comment on above: Order Comment: Order Date: 05/19/24Order Info: [id number] - CMPOrder Info: [id number] - LIPIDOrder Info: [id number] - MGOrder Info: [id number] - TSH Performed By: #### L 100.0100, L501.9985, L501.5200, L501.9520, L500.4050, L500.4100 ####[facility] [address] [place], [place], [address] CO2 [Moles/Vol] 19.7 mmol/L Low 21.0-32.0 [facility] Comment on above: Order Comment: Order Date: 05/19/24Order Info: [id number] - CMPOrder Info: [id number] - LIPIDOrder Info: [id number] - MGOrder Info: [id number] - TSH Performed By: #### L 100.0100, L501.9985, L501.5200, L501.9520, L500.4050, L500.4100 ####[facility] [address] [place], [address] Creatinine [Mass/Vol] 0.69 mg/dL Low 0.70-1.20 [facility] Comment on above: Order Comment: Order Date: 05/19/24Order Info: 07-1 - CMPOrder Info: [id number] - LIPIDOrder Info: [id number] - MGOrder Info: [id number] - TSH Performed By: #### L 100.0100, L501.9985, L501.5200, L501.9520, L500.4050, L500.4100 ####[facility] [address] [place], [place], [id number] GAP 13 Normal 5-15 [facility] Comment on above: Order Comment: Order Date: 05/19/24Order Info: [id number] - CMPOrder Info: [id number] - LIPIDOrder Info: [id number] - MGOrder Info: [id number] - TSH Performed By: #### L 100.0100, L501.9985, L501.5200, L501.9520, L500.4050, L500.4100 ####[facility] [address] [place], [place], [address] GFR/1.73 sq M.predicted among non-blacks MDRD (S/P/Bld) [Vol rate/Area] 98 mL/min/{1.73_m2} Normal >60 [facility] Comment on above: Order Comment: Order Date: 05/19/24Order Info: [id number] - CMPOrder Info: [id number] - LIPIDOrder Info: [id number] - MGOrder Info: [id number] - TSH Result Comment: mL/m in/1.73m2 CKD-EPI Creatinine Equation (2020) Performed By: #### L 100.0100, L501.9985, L501.5200, L501.9520, L500.4050, L500.4100 ####[facility] [address] [place], [address] Globulin (S) [Mass/Vol] 2.8 g/dL Normal 2.2-4.2 [facility] Comment on above: Order Comment: Order Date: 05/19/24Order Info: [id number]- - CMPOrder Info: - LIPIDOrder Info: - MGOrder Info: [id number] - TSH Performed By: #### L 100.0100, L501.9985, L501.5200, L501.9520, L500.4050, L500.4100 ####[facility] [address] [place], [address] Glucose [Mass/Vol] 89 mg/dL Normal 70-99 [facility] Comment on above: Order Comment: Order Date: 05/19/24Order Info: 07- - CMPOrder Info: - LIPIDOrder Info: - MGOrder Info: [id number] - TSH Performed By: #### L 100.0100, L501.9985, L501.5200, L501.9520, L500.4050, L500.4100 ####[facility] [address] [place], [address] Potassium [Moles/Vol] 3.9 mmol/L Normal 3.3-5.1 [facility] Comment on above: Order Comment: Order Date: 05/19/24Order Info: 86- - CMPOrder Info: - LIPIDOrder Info: [id number] - MGOrder Info: [id number] - TSH Performed By: #### L 100.0100, L501.9985, L501.5200, L501.9520, L500.4050, L500.4100 ####[facility] [address] [place], [place], [address] Sodium [Moles/Vol] 139 mmol/L Normal 133-145 [facility] Comment on above: Order Comment: Order Date: 05/19/24Order Info: 86-1 - CMPOrder Info: [id number] - LIPIDOrder Info: - MGOrder Info: [id number] - TSH Performed By: #### L 100.0100, L501.9985, L501.5200, L501.9520, L500.4050, L500.4100 ####[facility] [address] [place], [place], [id number] T PROT 6.8 g/dL Normal 5.9-8.4 [facility] Comment on above: Order Comment: Order Date: 05/19/24Order Info: [id number]- - CMPOrder Info: - LIPIDOrder Info: - MGOrder Info: [id number] - TSH Performed By: #### L 100.0100, L501.9985, L501.5200, L501.9520, L500.4050, L500.4100 ####[facility] [address] [place], [place], [id number] Urea nitrogen [Mass/Vol] 18 mg/dL Normal 4-19 [facility] Comment on above: Order Comment: Order Date: 05/19/24Order Info: 86-1 - CMPOrder Info: [id number] - LIPIDOrder Info: - MGOrder Info: [id number] - TSH Performed By: #### L 100.0100, L501.9985, L501.5200, L501.9520, L500.4050, L500.4100 ####[facility] [address] [place], [address] Eosinophil percentageOrdered By: Davis Armstrong on 05-19-2024 Eosinophils/100 WBC (Bld) 2.2 % 0-5 [facility] Erythrocyte distribution wid th ratioOrdered By: Davis Armstrong on 05-19-2024 Erythrocyte distribution width (RBC) [Ratio] 12.7 % 11.6-14.6 [facility] Erythrocyte distribution wid th standard deviationOrdered By: Davis Armstrong on 05-19-2024 Erythrocyte distribution width (RBC) [Entitic vol] 43.1 fL 35.1-43.9 [facility] Erythrocyte distribution width (RBC) [Ratio] 43.1 fl 35.1-43.9 [facility] GFR/1.73 sq M.predicted nirmal g non-blacks MDRD (S/P/Bld) [Vol rate/Area]Ordered By: Davis Armstrong on 05-19-2024 Estimated GFR (MDRD) Non-Af Amer 98 >60 [facility] Comment on above: mL/min/1.73m2 CKD-EP I Creatinine Equation (2020) Glomerular filtration rate ( GFR) estimation/1.73 sq m using serum, plasma, or whole bOrdered By: Davis Armstrong on 05-19-2024 GFR/1.73 sq M.predicted among non-blacks MDRD (S/P/Bld) [Vol rate/Area] 98 mL/min/{1.73_m2} >60 [facility] Comment on above: mL/min/1.73m2 CKD-EP I Creatinine Equation (2020) Hematocrit Auto (Bld) [Volum e fraction]Ordered By: Davis Armstrong on 05-19-2024 Hematocrit (Bld) [Volume fraction] 38.2 % Low 40-54 [facility] Hemoglobin A1con 05-19-2024 HbA1c (Bld) [Mass fraction] 6.4 % Normal <=5.6 [facility] Comment on above: Order Comment: Order Date: 05/19/24Order Info: [id number] - A1C Performed By: #### L 100.0100, L501.9985, L501.5200, L501.9520, L500.4050, L500.4100 ####[facility] [address] [place], [address] Hemoglobin A1c percentageOrd ered By: Davis Armstrong on 05-19-2024 HbA1c (Bld) [Mass fraction] 6.4 % >5.7 [facility] Hemoglobin measurementOrdere d By: Davis Armstrong on 05-19-2024 Hemoglobin (Bld) [Mass/Vol] 12.7 g/dL Low 13.0-16.5 [facility] Immature granulocytes/100 WB C Auto (Bld)Ordered By: Davis Armstrong on 05-19-2024 Immature granulocytes/100 WBC (Bld) 0.400 % 0.0-0.9 [facility] Comment on above: IG% - Immature Granu locytes (promyelocytes, myelocytes and metamyelocytes) > 1% indicates that a LEFT SHIFT is Present. LDL calc ser/plasOrdered By: Davis Armstrong on 05-19-2024 Cholesterol in LDL [Mass/Vol] 61 mg/dL [facility] Comment on above: Gqugvvrzcf=418-373 m g/dL & Higher Vsla=054 mg/dL or greater LDL Cholesterol, Calculated 61 mg/dL [facility] Comment on above: Lvsxtebqth=927-964 m g/dL & Higher Pldo=693 mg/dL or greater Laboratory - Chemistry and C hemistry - challengeOrdered By: Davis Armstrong on 05-19-2024 AST [Catalytic activity/Vol] 28 U/L <38 [facility] Lipid Profileon 05-19-2024 CHOL:HDL 2.32 Normal [facility] Comment on above: Order Comment: Order Date: 05/19/24Order Info: [id number] - CMPOrder Info: [id number] - LIPIDOrder Info: [id number] - MGOrder Info: [id number] - TSH Performed By: #### L 100.0100, L501.9985, L501.5200, L501.9520, L500.4050, L500.4100 ####[facility] [address] [place], [address] Cholesterol [Mass/Vol] 126 mg/dL Normal <=200 [facility] Comment on above: Order Comment: Order Date: 05/19/24Order Info: [id number] - CMPOrder Info: [id number] - LIPIDOrder Info: [id number] - MGOrder Info: 3 - TSH Result Comment: Chol esterol level, Desirable <200 mg/dL Borderline high cholesterol 200-239 mg/dL High cholesterol >=240 mg/dL Recommendations of the NCEP Adult Treatment Panel for the following risk-cutoff thresholds for the [place] population. Performed By: #### L 100.0100, L501.9985, L501.5200, L501.9520, L500.4050, L500.4100 ####[facility] [address] [place], [address] Cholesterol in HDL [Mass/Vol] 54 mg/dL Normal [facility] Comment on above: Order Comment: Order Date: 05/19/24Order Info: [id number] - CMPOrder Info: [id number] - LIPIDOrder Info: [id number] - MGOrder Info: 3 - TSH Result Comment: [place] on[place] Cholesterol Education Program (NCEP) guidelines: <40 mg/dL: Low HDL-cholesterol (major risk factor for CHD) >= 60 mg/dL: High HDL-cholesterol (negative risk factor for CHD) HDL-cholesterol is affected by a number of factors, e.g. smoking, exercise, hormones, sex and age. Performed By: #### L 100.0100, L501.9985, L501.5200, L501.9520, L500.4050, L500.4100 ####[facility] [address] [place], [place], [address]) Cholesterol in LDL [Mass/Vol] 61 mg/dL Normal [facility] Comment on above: Order Comment: Order Date: 05/19/24Order Info: [id number] - CMPOrder Info: [id number] - LIPIDOrder Info: [id number] - MGOrder Info: [id number] - TSH Result Comment: Bord neajly=375-374 mg/dL Higher Vhwj=961 mg/dL or greater Performed By: #### L 100.0100, L501.9985, L501.5200, L501.9520, L500.4050, L500.4100 ####[facility] [address] [place], [address] Cholesterol in VLDL [Mass/Vol] 10 mg/dL Normal 5-40 [facility] Comment on above: Order Comment: Order Date: 05/19/24Order Info: [id number] - CMPOrder Info: [id number] - LIPIDOrder Info: [id number] - MGOrder Info: [id number] - TSH Performed By: #### L 100.0100, L501.9985, L501.5200, L501.9520, L500.4050, L500.4100 ####[facility] [address] [place], [address] Triglyceride [Mass/Vol] 52 mg/dL Normal [facility] Comment on above: Order Comment: Order Date: 05/19/24Order Info: [id number] - CMPOrder Info: [id number] - LIPIDOrder Info: [id number] - MGOrder Info: [id number] - TSH Result Comment: The drugs N-Acetylcysteine and Metamizole may falsely depress this assay. Normal range: <150 mg/dL Borderline High: 150-199 mg/dL High: 200-499 mg/dL Very High: >500 mg/dL Performed By: #### L 100.0100, L501.9985, L501.5200, L501.9520, L500.4050, L500.4100 ####[facility] [address] [place], [address] Lymphocytes Auto (Unsp spec) [#/Vol]Ordered By: Davis Armstrong on 05-19-2024 Lymphocytes (Bld) [#/Vol] 0.85 10*3/uL 0.83-4.51 [facility] Lymphocytes/100 WBC Auto (Un sp spec)Ordered By: Davis Armstrong on 05-19-2024 Lymphocytes/100 WBC (Bld) 15.5 % Low 19-41 [facility] MCV (mean corpuscular volume ) determinationOrdered By: Davis Armstrong on 05-19-2024 MCV (RBC) [Entitic vol] 92.7 fL 80-94 [facility] Magnesiumon 05-19-2024 Magnesium [Mass/Vol] 1.9 mg/dL Normal 1.5-2.2 [facility] Comment on above: Order Comment: Order Date: 05/19/24Order Info: [id number] - CMPOrder Info: [id number] - LIPIDOrder Info: [id number] - MGOrder Info: [id number] - TSH Performed By: #### L 100.0100, L501.9985, L501.5200, L501.9520, L500.4050, L500.4100 ####[facility] [address] [place], [address] Magnesium (Unsp spec) [Mass/ Vol]Ordered By: Davis Armstrong on 05-19-2024 Magnesium [Mass/Vol] 1.9 mg/dL 1.5-2.2 [facility] Magnesium measurement (mass/ volume)Ordered By: Davis Armstrong on 05-19-2024 Magnesium (Unsp spec) [Mass/Vol] 1.9 mg/dL 1.5-2.2 [facility] Mean corpuscular hemoglobin (MCH) determinationOrdered By: Davis Armstrong on 05-19-2024 MCH (RBC) [Entitic mass] 30.8 pg 27.0-32.0 [facility] Mean corpuscular hemoglobin concentration (MCHC) determinationOrdered By: Davis Armstrong on 05-19-2024 MCHC (RBC) [Mass/Vol] 33.2 g/dL 32-36 [facility] Mean platelet volume determi nationOrdered By: Davis Armstrong on 05-19-2024 Platelet mean volume (Bld) [Entitic vol] 10.8 fL 6.2-12.0 [facility] Microalbumin,Random Urineon 05-19-2024 MICROALBUMIN,UR 28.6 mg/L Normal NO RANGE EST. [facility] Comment on above: Performed By: #### L 502.0500 ####[facility] [address] [place], [address] Monocyte percentageOrdered B y: Davis Armstrong on 05-19-2024 Monocytes/100 WBC (Bld) 7.5 % 0-10 [facility] Neutrophil percentageOrdered By: Davis Armstrong on 05-19-2024 Neutrophils/100 WBC (Bld) 73.3 % High 47-70 [facility] Nucleated red blood cell per centageOrdered By: Davis Armstrong on 05-19-2024 Nucleated RBC/100 WBC (Bld) [Ratio] 0 % 0-5 [facility] Platelet countOrdered By: Anuradha Armstrong on 05-19-2024 Platelets (Bld) [#/Vol] 256 10*3/uL 150-450 [facility] Potassium (Unsp spec) [Mass/ Vol]Ordered By: Davis Armstrong on 05-19-2024 Potassium [Moles/Vol] 3.9 mmol/L 3.3-5.1 [facility] Potassium measurement (mass/ volume)Ordered By: Davis Armstrong on 05-19-2024 Potassium (Unsp spec) [Mass/Vol] 3.9 mmol/L 3.3-5.1 [facility] RBC Auto (Bld) [#/Vol]Ordere d By: Davis Armstrong on 05-19-2024 RBC (Bld) [#/Vol] 4.12 10*6/uL Low 4.6-6.2 [facility] Screening total cholesterol/ high density lipoprotein (HDL) cholesterol ratioOrdered By: Davis Armstrong on 05-19-2024 Cholesterol.total/Choles terol in HDL [Mass ratio] 2.32 {ratio} [facility] Serum creatinine measurement (mass/volume)Ordered By: Davis Armstrong on 05-19-2024 Creatinine [Mass/Vol] 0.69 mg/dL Low 0.70-1.20 [facility] Serum globulin measurementOr dered By: Davis Armstrong on 05-19-2024 Globulin (S) [Mass/Vol] 2.8 g/dL 2.2-4.2 [facility] Serum glucose measurement (m ass/volume)Ordered By: Davis Armstrong on 05-19-2024 Glucose [Mass/Vol] 89 mg/dL 70-99 [facility] Serum or plasma alanine sands otransferase (ALT) measurementOrdered By: Davis Armstrong on 05-19-2024 ALT [Catalytic activity/Vol] 16 U/L <47 [facility] Serum or plasma albumin ash urement (mass/volume)Ordered By: Davis Armstrong on 05-19-2024 Albumin [Mass/Vol] 4.1 g/dL 3.4-4.8 [facility] Serum or plasma albumin/glob ulin mass ratioOrdered By: Davis Armstrong on 05-19-2024 Albumin/Globulin [Mass ratio] 1.5 {ratio} 0.9-2.4 [facility] Serum or plasma alkaline katty sphatase measurementOrdered By: Davis Armstrong on 05-19-2024 ALP [Catalytic activity/Vol] 93 U/L 40-129 [facility] Serum or plasma calcium ash urement (mass/volume)Ordered By: Davis Armstrong on 05-19-2024 Calcium [Mass/Vol] 9.0 mg/dL 7.6-11.0 [facility] Serum or plasma cholesterol in HDL measurement (mass/volume)Ordered By: Davis Armstrong on 05-19-2024 Cholesterol in HDL [Mass/Vol] 54 mg/dL >40 [facility] Comment on above: National Cholesterol Education Program (NCEP) guidelines:<40 mg/dL: Low HDL-cholesterol (major risk factor for CHD)>= 60 mg/dL: High HDL-cholesterol (negative risk factor for CHD)HDL-cholesterol is affected by a number of factors, e.g. smoking, exercise, hormones, sex and age. Serum or plasma cholesterol measurement (mass/volume)Ordered By: Davis Armstrong on 05-19-2024 Cholesterol [Mass/Vol] 126 mg/dL <201 [facility] Comment on above: Cholesterol level, D esirable <200 mg/dLBorderline high cholesterol 200-239 mg/dLHigh cholesterol >=240 mg/dLRecommendations of the NCEP Adult Treatment Panel for the following risk-cutoff thresholds for the [place] population. Serum or plasma urea nitroge n measurement (mass/volume)Ordered By: Davis Armstrong on 05-19-2024 Urea nitrogen [Mass/Vol] 18 mg/dL 4-19 [facility] Sodium levelOrdered By: Davis Armstrong on 05-19-2024 Sodium [Moles/Vol] 139 mmol/L 133-145 [facility] TSH DL <= 0.005 mIU/L QnOrde red By: Davis Armstrong on 05-19-2024 Thyroid Stimulating Hormone (TSH) 2.270 uIU/mL 0.300-4.200 [facility] TSH Qn 2.270 uIU/mL 0.300-4.200 [facility] Thyroid Stim Hormone (TSH)on 05-19-2024 TSH 2.270 uIU/mL Normal 0.300-4.200 [facility] Comment on above: Order Comment: Order Date: 05/19/24Order Info: [id number] - CMPOrder Info: [id number] - LIPIDOrder Info: [id number] - MGOrder Info: [id number] - TSH Performed By: #### L 100.0100, L501.9985, L501.5200, L501.9520, L500.4050, L500.4100 ####[facility] [address] [facility]. [place], [place], [id number] Total proteinOrdered By: Jarek Armstrong on 05-19-2024 Protein [Mass/Vol] 6.8 g/dL 5.9-8.4 [facility] Triglycerides measurementOrd ered By: Davis Armstrong on 05-19-2024 Triglyceride [Mass/Vol] 52 mg/dL <199 [facility] Comment on above: The drugs N-Acetylcy steine and Metamizole may falsely depress this assay. Normal range: <150 mg/dLBorderline High: 150-199 mg/dLHigh: 200-499 mg/dLVery High: >500 mg/dL Urine albumin measurement wi detection limit of 20 mg/L or less (mass/volume)Ordered By: Davis Armstrong on 05-19-2024 Albumin DL <= 20 mg/L (U) [Mass/Vol] 28.6 mg/L NO RANGE EST. [facility] White blood cell (WBC) count Ordered By: Davis Armstrong on 05-19-2024 WBC (Bld) [#/Vol] 5.5 10*3/uL 4.4-11.0 [facility] PSA,Total - Annual Screenon 01-14-2024 PSA,TOT SCREEN 1.40 ng/mL Normal 0.00-4.00 [facility] Comment on above: Order Comment: Order Date: 01/14/24Order Info: [id number] - PSA Result Comment: This test was performed using the TPSA assay method for the [employer] Interactive chemistry system. Values obtained with different assay methods cannot be used interchangably. When changing PSA assays in the course of monitoring a patient, additional sequential testing should be carried out to confirm baseline values. Performed By: #### L 501.9910 ####[facility] [address] [place], [address] CBC W/Diff, Automatedon 08-16 Absolute Lymph 0.86 X10 3/uL Normal 0.83-4.51 [facility] Comment on above: Order Comment: Order Date: 05/09/23 Order Info: [id number] - CBCD Performed By: #### L 500.4050, L501.9985, L500.4100, L501.5200, L100.0100 #### [facility] [address] [place], [address] Absolute Neut 3.8 X10 3/uL Normal 2.0-7.7 [facility] Comment on above: Order Comment: Order Date: 05/09/23 Order Info: [id number] - CBCD Performed By: #### L 500.4050, L501.9985, L500.4100, L501.5200, L100.0100 #### [facility] [address] [place], [address] Basophils/100 WBC (Bld) 0.9 % Normal 0-1 [facility] Comment on above: Order Comment: Order Date: 05/09/23 Order Info: [id number] - CBCD Performed By: #### L 500.4050, L501.9985, L500.4100, L501.5200, L100.0100 #### [facility] [address] [place], [address] Eosinophils/100 WBC (Bld) 3.6 % Normal 0-5 [facility] Comment on above: Order Comment: Order Date: 05/09/23 Order Info: [id number] - CBCD Performed By: #### L 500.4050, L501.9985, L500.4100, L501.5200, L100.0100 #### [facility] [address] [place], [address] Erythrocyte distribution width (RBC) [Ratio] 12.4 % Normal 11.6-14.6 [facility] Comment on above: Order Comment: Order Date: 05/09/23 Order Info: [id number] - CBCD Performed By: #### L 500.4050, L501.9985, L500.4100, L501.5200, L100.0100 #### [facility] [address] [place], [address] Hematocrit (Bld) [Volume fraction] 40.3 % Normal 40-54 [facility] Comment on above: Order Comment: Order Date: 05/09/23 Order Info: [id number]- - CBCD Performed By: #### L 500.4050, L501.9985, L500.4100, L501.5200, L100.0100 #### [facility] [address] [place], [address] Hemoglobin (Bld) [Mass/Vol] 13.4 g/dL Normal 13.0-16.5 [facility] Comment on above: Order Comment: Order Date: 05/09/23 Order Info: 0184-1 - CBCD Performed By: #### L 500.4050, L501.9985, L500.4100, L501.5200, L100.0100 #### [facility] [address] [place], [address] IG% 0.400 Normal 0.0-0.9 [facility] Comment on above: Order Comment: Order Date: 05/09/23 Order Info: [id number] - CBCD Result Comment: IG% - Immature Granulocytes (promyelocytes, myelocytes and metamyelocytes) > 1% indicates that a LEFT SHIFT is Present. Performed By: #### L 500.4050, L501.9985, L500.4100, L501.5200, L100.0100 #### [facility] [address] [place], [address] Lymphocytes/100 WBC (Bld) 16.1 % Low 19-41 [facility] Comment on above: Order Comment: Order Date: 05/09/23 Order Info: 0184-1 - CBCD Performed By: #### L 500.4050, L501.9985, L500.4100, L501.5200, L100.0100 #### [facility] [address] [place], [address] MCH (RBC) [Entitic mass] 30.4 pg Normal 27.0-32.0 [facility] Comment on above: Order Comment: Order Date: 05/09/23 Order Info: 0184-1 - CBCD Performed By: #### L 500.4050, L501.9985, L500.4100, L501.5200, L100.0100 #### [facility] [address] [place], [address] MCHC (RBC) [Mass/Vol] 33.3 g/dL Normal 32-36 [facility] Comment on above: Order Comment: Order Date: 05/09/23 Order Info: 0184-1 - CBCD Performed By: #### L 500.4050, L501.9985, L500.4100, L501.5200, L100.0100 #### [facility] [address] [place], [address] MCV (RBC) [Entitic vol] 91.4 fL Normal 80-94 [facility] Comment on above: Order Comment: Order Date: 05/09/23 Order Info: 0184-1 - CBCD Performed By: #### L 500.4050, L501.9985, L500.4100, L501.5200, L100.0100 #### [facility] [address] [place], [address] Monocytes/100 WBC (Bld) 8.4 % Normal 0-10 [facility] Comment on above: Order Comment: Order Date: 05/09/23 Order Info: 0184-1 - CBCD Performed By: #### L 500.4050, L501.9985, L500.4100, L501.5200, L100.0100 #### [facility] [address] [place], [address] Neutrophils/100 WBC (Bld) 70.6 % High 47-70 [facility] Comment on above: Order Comment: Order Date: 05/09/23 Order Info: 0184-1 - CBCD Performed By: #### L 500.4050, L501.9985, L500.4100, L501.5200, L100.0100 #### [facility] [address] [place], [address] Nucleated RBC (Bld) [#/Vol] 0 10*3/uL Normal 0-5 [facility] Comment on above: Order Comment: Order Date: 05/09/23 Order Info: 0184-1 - CBCD Performed By: #### L 500.4050, L501.9985, L500.4100, L501.5200, L100.0100 #### [facility] [address] [place], [address] Platelet mean volume (Bld) [Entitic vol] 10.4 fL Normal 6.2-12.0 [facility] Comment on above: Order Comment: Order Date: 05/09/23 Order Info: 0184-1 - CBCD Performed By: #### L 500.4050, L501.9985, L500.4100, L501.5200, L100.0100 #### [facility] [address] [place], [address] Platelets (Bld) [#/Vol] 245 10*3/uL Normal 150-450 [facility] Comment on above: Order Comment: Order Date: 05/09/23 Order Info: 0184-1 - CBCD Performed By: #### L 500.4050, L501.9985, L500.4100, L501.5200, L100.0100 #### [facility] [address] [place], [address] RBC (Bld) [#/Vol] 4.41 10*6/uL Low 4.6-6.2 [facility] Comment on above: Order Comment: Order Date: 05/09/23 Order Info: 0184-1 - CBCD Performed By: #### L 500.4050, L501.9985, L500.4100, L501.5200, L100.0100 #### [facility] [address] [place], [address] RDW SD 41.7 fl Normal 35.1-43.9 [facility] Comment on above: Order Comment: Order Date: 05/09/23 Order Info: 0184-1 - CBCD Performed By: #### L 500.4050, L501.9985, L500.4100, L501.5200, L100.0100 #### [facility] [address] [place], [address] WBC (Bld) [#/Vol] 5.3 10*3/uL Normal 4.4-11.0 [facility] Comment on above: Order Comment: Order Date: 05/09/23 Order Info: 0184-1 - CBCD Performed By: #### L 500.4050, L501.9985, L500.4100, L501.5200, L100.0100 #### [facility] [address] [place], [address] Comprehensive Metabolic Prof ilon 09-10-2023 Albumin [Mass/Vol] 3.7 g/dL Normal 3.2-5.0 [facility] Comment on above: Order Comment: Order Date: 05/09/23 Order Info: [id number] - CMP Order Info: [id number] - LIPID Order Info: [id number] - MG Performed By: #### L 500.4050, L501.9985, L500.4100, L501.5200, L100.0100 #### [facility] [address] [place], [address] Albumin/Globulin [Mass ratio] 1.1 {ratio} Normal 0.9-2.4 [facility] Comment on above: Order Comment: Order Date: 05/09/23 Order Info: [id number] - CMP Order Info: [id number] - LIPID Order Info: [id number] - MG Performed By: #### L 500.4050, L501.9985, L500.4100, L501.5200, L100.0100 #### [facility] [address] [place], [address] ALK P 85 U/L Normal 45-117 [facility] Comment on above: Order Comment: Order Date: 05/09/23 Order Info: [id number] - CMP Order Info: [id number] - LIPID Order Info: [id number] - MG Performed By: #### L 500.4050, L501.9985, L500.4100, L501.5200, L100.0100 #### [facility] [address] [place], [address] ALT [Catalytic activity/Vol] 18 U/L Normal 16-61 [facility] Comment on above: Order Comment: Order Date: 05/09/23 Order Info: [id number] - CMP Order Info: [id number] - LIPID Order Info: [id number] - MG Performed By: #### L 500.4050, L501.9985, L500.4100, L501.5200, L100.0100 #### [facility] [address] [place], [address] AST [Catalytic activity/Vol] 19 U/L Normal 15-37 [facility] Comment on above: Order Comment: Order Date: 05/09/23 Order Info: [id number] - CMP Order Info: - LIPID Order Info: [id number] - MG Performed By: #### L 500.4050, L501.9985, L500.4100, L501.5200, L100.0100 #### [facility] [address] [place], [address] Bilirubin [Mass/Vol] 1.00 mg/dL Normal 0.20-1.00 [facility] Comment on above: Order Comment: Order Date: 05/09/23 Order Info: [id number]- - CMP Order Info: - LIPID Order Info: [id number] - MG Result Comment: For patients on eltrombopag therapy, use of Dimension [place] TBIL is not recommended. Performed By: #### L 500.4050, L501.9985, L500.4100, L501.5200, L100.0100 #### [facility] [address] [place], [address] BUN/CRE 23.3 RATIO High 10-20 [facility] Comment on above: Order Comment: Order Date: 05/09/23 Order Info: [id number] - CMP Order Info: [id number] - LIPID Order Info: [id number] - MG Performed By: #### L 500.4050, L501.9985, L500.4100, L501.5200, L100.0100 #### [facility] [address] [place], [address] CA,Total 9.1 mg/dL Normal 8.5-10.1 [facility] Comment on above: Order Comment: Order Date: 05/09/23 Order Info: [id number] - CMP Order Info: [id number] - LIPID Order Info: [id number] - MG Performed By: #### L 500.4050, L501.9985, L500.4100, L501.5200, L100.0100 #### [facility] [address] [place], [address] Chloride [Moles/Vol] 108 mmol/L High 98-107 [facility] Comment on above: Order Comment: Order Date: 05/09/23 Order Info: [id number] - CMP Order Info: [id number] - LIPID Order Info: [id number] - MG Performed By: #### L 500.4050, L501.9985, L500.4100, L501.5200, L100.0100 #### [facility] [address] [place], [address] CO2 [Moles/Vol] 23.0 mmol/L Normal 21.0-32.0 [facility] Comment on above: Order Comment: Order Date: 05/09/23 Order Info: [id number]- - CMP Order Info: [id number] - LIPID Order Info: [id number] - MG Performed By: #### L 500.4050, L501.9985, L500.4100, L501.5200, L100.0100 #### [facility] [address] [place], [address] Creatinine [Mass/Vol] 0.86 mg/dL Normal 0.70-1.30 [facility] Comment on above: Order Comment: Order Date: 05/09/23 Order Info: [id number] - CMP Order Info: [id number] - LIPID Order Info: [id number] - MG Result Comment: The validity of the calculated GFR GFRAA in patients over 70 years has not been determined. Clinical correlation is essential. Performed By: #### L 500.4050, L501.9985, L500.4100, L501.5200, L100.0100 #### [facility] [address] [place], [address] EST GFR - AA 113 mL/min Normal >60 [facility] Comment on above: Order Comment: Order Date: 05/09/23 Order Info: [id number] - CMP Order Info: [id number] - LIPID Order Info: [id number] - MG Result Comment: Afri can [place] GFR Calc Performed By: #### L 500.4050, L501.9985, L500.4100, L501.5200, L100.0100 #### [facility] [address] [place], [address] GAP 7 Normal 5-15 [facility] Comment on above: Order Comment: Order Date: 05/09/23 Order Info: [id number] - CMP Order Info: [id number] - LIPID Order Info: [id number] - MG Performed By: #### L 500.4050, L501.9985, L500.4100, L501.5200, L100.0100 #### [facility] [address] [place], [address] GFR/1.73 sq M.predicted among non-blacks MDRD (S/P/Bld) [Vol rate/Area] 93 mL/min/{1.73_m2} Normal >60 [facility] Comment on above: Order Comment: Order Date: 05/09/23 Order Info: [id number] - CMP Order Info: [id number] - LIPID Order Info: [id number] - MG Result Comment: Non- GFR Calc Performed By: #### L 500.4050, L501.9985, L500.4100, L501.5200, L100.0100 #### [facility] [address] [place], [address] Globulin (S) [Mass/Vol] 3.5 g/dL Normal 2.2-4.2 [facility] Comment on above: Order Comment: Order Date: 05/09/23 Order Info: [id number] - CMP Order Info: [id number] - LIPID Order Info: [id number] - MG Performed By: #### L 500.4050, L501.9985, L500.4100, L501.5200, L100.0100 #### [facility] [address] [place], [address] Glucose [Mass/Vol] 105 mg/dL Normal 74-106 [facility] Comment on above: Order Comment: Order Date: 05/09/23 Order Info: [id number]- - CMP Order Info: [id number] - LIPID Order Info: [id number] - MG Result Comment: Fast ing Glucose result from 100 to 125 mg/dL suggests IMPAIRED HOMEOSTASIS per A.D.A. criteria. Performed By: #### L 500.4050, L501.9985, L500.4100, L501.5200, L100.0100 #### [facility] [address] [place], [address] Potassium [Moles/Vol] 3.8 mmol/L Normal 3.5-5.1 [facility] Comment on above: Order Comment: Order Date: 05/09/23 Order Info: [id number]- - CMP Order Info: [id number] - LIPID Order Info: [id number] - MG Performed By: #### L 500.4050, L501.9985, L500.4100, L501.5200, L100.0100 #### [facility] [address] [place], [address] Sodium [Moles/Vol] 138 mmol/L Normal 136-145 [facility] Comment on above: Order Comment: Order Date: 05/09/23 Order Info: [id number] - CMP Order Info: [id number] - LIPID Order Info: [id number] - MG Performed By: #### L 500.4050, L501.9985, L500.4100, L501.5200, L100.0100 #### [facility] [address] [place], [address] T PROT 7.2 g/dL Normal 6.4-8.2 [facility] Comment on above: Order Comment: Order Date: 05/09/23 Order Info: [id number] - CMP Order Info: [id number] - LIPID Order Info: [id number] - MG Performed By: #### L 500.4050, L501.9985, L500.4100, L501.5200, L100.0100 #### [facility] [address] [place], [address] Urea nitrogen [Mass/Vol] 20 mg/dL High 7-18 [facility] Comment on above: Order Comment: Order Date: 05/09/23 Order Info: [id number] - CMP Order Info: [id number] - LIPID Order Info: [id number] - MG Performed By: #### L 500.4050, L501.9985, L500.4100, L501.5200, L100.0100 #### [facility] [address] [place], [address] Hemoglobin A1con 09-10-2023 HbA1c (Bld) [Mass fraction] 6.0 % High 3.8-5.6 [facility] Comment on above: Order Comment: Order Date: 05/09/23 Order Info: [id number] - A1C Result Comment: Norm al < 5.7 % Prediabetic 5.7 - 6.4 % Diabetic >or= 6.5 % Please note range changes. Performed By: #### L 500.4050, L501.9985, L500.4100, L501.5200, L100.0100 #### [facility] [address] [place], [address] Lipid Profileon 09-10-2023 Cholesterol [Mass/Vol] 148 mg/dL Normal 200 [facility] Comment on above: Order Comment: Order Date: 05/09/23 Order Info: [id number] - CMP Order Info: [id number] - LIPID Order Info: [id number] - MG Result Comment: <200 mg/dL Desirable 200-240 mg/dL Borderline >240 mg/dL High Risk Performed By: #### L 500.4050, L501.9985, L500.4100, L501.5200, L100.0100 #### [facility] [address] [place], [address] Cholesterol in HDL [Mass/Vol] 60 mg/dL Normal [facility] Comment on above: Order Comment: Order Date: 05/09/23 Order Info: [id number] - CMP Order Info: [id number] - LIPID Order Info: [id number] - MG Result Comment: The drugs N-Acetylcysteine and Metamizole may falsely depress this assay. Reference Range HDL <40 mg/dL Low HDL Cholesterol HDL >or= 60 mg/dL High HDL Cholesterol Performed By: #### L 500.4050, L501.9985, L500.4100, L501.5200, L100.0100 #### [facility] [address] [place], [address] Cholesterol in LDL [Mass/Vol] 74 mg/dL Normal 0-130 [facility] Comment on above: Order Comment: Order Date: 05/09/23 Order Info: [id number]- - CMP Order Info: [id number] - LIPID Order Info: [id number] - MG Performed By: #### L 500.4050, L501.9985, L500.4100, L501.5200, L100.0100 #### [facility] [address] [place], [address] Cholesterol in VLDL [Mass/Vol] 14 mg/dL Normal 5-40 [facility] Comment on above: Order Comment: Order Date: 05/09/23 Order Info: [id number]- - CMP Order Info: [id number] - LIPID Order Info: [id number] - MG Performed By: #### L 500.4050, L501.9985, L500.4100, L501.5200, L100.0100 #### [facility] [address] [place], [address] Triglyceride [Mass/Vol] 68 mg/dL Normal [facility] Comment on above: Order Comment: Order Date: 05/09/23 Order Info: [id number] - CMP Order Info: [id number] - LIPID Order Info: [id number] - MG Result Comment: The drugs N-Acetylcysteine and Metamizole may falsely depress this assay. Serum Triglycerides Reference Interval Normal <150 mg/dL Borderline high 150 - 199 mg/dL High 200 - 499 mg/dL Very High > or = 500 mg/dL Performed By: #### L 500.4050, L501.9985, L500.4100, L501.5200, L100.0100 #### [facility] [address] [place], [address] Magnesiumon 09-10-2023 Magnesium [Mass/Vol] 2.1 mg/dL Normal 1.6-2.6 [facility] Comment on above: Order Comment: Order Date: 05/09/23 Order Info: [id number] - CMP Order Info: [id number] - LIPID Order Info: [id number] - MG Performed By: #### L 500.4050, L501.9985, L500.4100, L501.5200, L100.0100 #### [facility] [address] [place], [address] Urinalysis, Completeon 09-09 BACTERIA 0 SEEN Normal None Seen [facility] Comment on above: Order Comment: CLEAN CATCH Performed By: #### L [id number] ####[facility] [id number] [place], [address] EPI,SQUAMOUS 0 SEEN Normal 0-5 [facility] Comment on above: Order Comment: CLEAN CATCH Performed By: #### L [id number] ####[facility] [id number] [place], [address] Mucus Ql (Urine sed) 0 SEEN Normal [facility] Comment on above: Order Comment: CLEAN CATCH Performed By: #### L [id number] ####[facility] [id number] [place], [address] RBC 0 SEEN Normal 0-5 [facility] Comment on above: Order Comment: CLEAN CATCH Performed By: #### L [id number] ####[facility] [id number] [place], [address] WBC 0 SEEN Normal 0-5 [facility] Comment on above: Order Comment: CLEAN CATCH Performed By: #### L [id number] ####[facility] [id number] [place], [place], [id number] Absolute lymphocyte countOrd ered By: Davis Armstrong on 05-08-2023 Lymphocytes Auto (Unsp spec) [#/Vol] 0.83 10*3/uL 0.83-4.51 [facility] Automated lymphocyte count a s percentage of total leukocytesOrdered By: Davis Armstrong on 05-08-2023 Lymphocytes/100 WBC Auto (Unsp spec) 10.3 % 19-41 [facility] Basophil percentageOrdered B y: Davis Armstrong on 05-08-2023 Basophils/100 WBC (Bld) 0.7 % 0-1 [facility] Bilirubin [Mass/Vol] 1.10 mg/dL 0.20-1.00 [facility] Comment on above: For patients on eltr ombopag therapy, use of Dimension [place] TBIL is not recommended. Chloride [Moles/Vol] 109 mmol/L 98-107 [facility] Cholesterol [Mass/Vol] 139 mg/dL <200 [facility] Comment on above: <200 mg/dL Desirable 200-240 mg/dL Borderline >240 mg/dL High Risk Eosinophils/100 WBC (Bld) 1.1 % 0-5 [facility] Glucose [Mass/Vol] 111 mg/dL 74-106 [facility] Comment on above: Fasting Glucose resu lt from 100 to 125 mg/dL suggests IMPAIRED HOMEOSTASIS per A.D.A. criteria. Hemoglobin (Bld) [Mass/Vol] 13.9 g/dL 13.0-16.5 [facility] Monocytes/100 WBC (Bld) 8.3 % 0-10 [facility] Neutrophils (Bld) [#/Vol] 6.4 10*3/uL 2.0-7.7 [facility] Neutrophils/100 WBC (Bld) 79.2 % 47-70 [facility] Potassium [Moles/Vol] 3.8 mmol/L 3.5-5.1 [facility] Protein [Mass/Vol] 7.3 g/dL 6.4-8.2 [facility] Sodium [Moles/Vol] 136 mmol/L 136-145 [facility] Triglyceride [Mass/Vol] 93 mg/dL <199 [facility] Comment on above: The drugs N-Acetylcy steine and Metamizole may falsely depress this assay.Serum Triglycerides Reference Interval Normal <150 mg/dL Borderline high 150 - 199 mg/dL High 200 - 499 mg/dL Very High > or = 500 mg/dL WBC (Bld) [#/Vol] 8.1 10*3/uL 4.4-11.0 [facility] Bilirubin Test strip Ql (U)O rdered By: Davis Armstrong on 05-08-2023 Bilirubin Ql (U) Negative Negative [facility] Determination of erythrocyte mean corpuscular volume (MCV)Ordered By: Davis Armstrong on 05-08-2023 MCV (RBC) [Entitic vol] 91.5 fL 80-94 [facility] Erythrocyte distribution wid th ratioOrdered By: Davis Armstrong on 05-08-2023 Erythrocyte distribution width (RBC) [Ratio] 12.9 % 11.6-14.6 [facility] Erythrocyte distribution wid th standard deviationOrdered By: Davis Armstrong on 05-08-2023 Erythrocyte distribution width (RBC) [Entitic vol] 43.3 fL 35.1-43.9 [facility] Hematocrit Auto (Bld) [Volum e fraction]Ordered By: Davis Armstrong on 05-08-2023 Hematocrit (Bld) [Volume fraction] 41.0 % 40-54 [facility] Immature granulocytes/100 WB C Auto (Bld)Ordered By: Davis Armstrong on 05-08-2023 Immature granulocytes/100 WBC (Bld) 0.400 % 0.0-0.9 [facility] Comment on above: IG% - Immature Granu locytes (promyelocytes, myelocytes and metamyelocytes) > 1% indicates that a LEFT SHIFT is Present. Ketones Test strip Ql (U)Ord ered By: Davis Armstrong on 05-08-2023 Ketones Ql (U) Negative Negative [facility] Laboratory - Chemistry and C hemistry - challengeOrdered By: Davis Armstrong on 05-08-2023 Albumin/Globulin [Mass ratio] 1.1 {ratio} 0.9-2.4 [facility] ALP [Catalytic activity/Vol] 99 U/L 45-117 [facility] ALT [Catalytic activity/Vol] 18 U/L 16-61 [facility] Cholesterol in HDL [Mass/Vol] 58 mg/dL >40 [facility] Comment on above: The drugs N-Acetylcy steine and Metamizole may falsely depress this assay. Reference Range HDL <40 mg/dL Low HDL Cholesterol HDL >or= 60 mg/dL High HDL Cholesterol Cholesterol in LDL [Mass/Vol] 62 mg/dL 0-130 [facility] CO2 [Moles/Vol] 24.0 mmol/L 21.0-32.0 [facility] Globulin (S) [Mass/Vol] 3.4 g/dL 2.2-4.2 [facility] Magnesium [Mass/Vol] 2.0 mg/dL 1.6-2.6 [facility] Urea nitrogen/Creatinine [Mass ratio] 26.6 mg/mg 10-20 [facility] Laboratory - Hematology and Cell countsOrdered By: Davis Armstrong on 05-08-2023 MCH (RBC) [Entitic mass] 31.0 pg 27.0-32.0 [facility] MCHC (RBC) [Mass/Vol] 33.9 g/dL 32-36 [facility] Nucleated RBC/100 WBC (Bld) [Ratio] 0 % 0-5 [facility] Platelet mean volume (Bld) [Entitic vol] 9.9 fL 6.2-12.0 [facility] Platelets (Bld) [#/Vol] 265 10*3/uL 150-450 [facility] Nitrite Test strip Ql (U)Ord ered By: Davis Armstrong on 05-08-2023 Nitrite Ql (U) Negative Negative [facility] No Panel InformationOrdered By: Davis Armstrong on 05-08-2023 Estimated GFR (MDRD) Amer 139 mL/min >60 [facility] Comment on above: GFR Calc Estimated GFR (MDRD) Non-Af Amer 115 mL/min >60 [facility] Comment on above: Non- GFR Calc VLDL Cholesterol 19 mg/dL 5-40 [facility] Protein Test strip Ql (U)Ord ered By: Davis Armstrong on 05-08-2023 Protein Ql (U) 15 mg/dl Negative [facility] RBC Auto (Bld) [#/Vol]Ordere d By: Davis Armstrong on 05-08-2023 RBC (Bld) [#/Vol] 4.48 10*6/uL 4.6-6.2 [facility] Serum or plasma calcium ash urement (mass/volume)Ordered By: Davis Armstrong on 05-08-2023 Calcium [Mass/Vol] 9.1 mg/dL 8.5-10.1 [facility] Serum or plasma creatinine m easurement (mass/volume)Ordered By: Davis Armstrong on 05-08-2023 Creatinine [Mass/Vol] 0.71 mg/dL 0.70-1.30 [facility] Comment on above: The validity of the calculated GFR & GFRAA in patients over 70 years has not been determined. Clinical correlation is essential. Serum or plasma thyroid stim ulating hormone (TSH) measurement (units/volume)Ordered By: Davis Armstrong on 05-08-2023 TSH Qn 2.31 uIU/mL 0.358-3.74 [facility] Serum or plasma urea nitroge n measurement (mass/volume)Ordered By: Davis Armstrong on 05-08-2023 Urea nitrogen [Mass/Vol] 19 mg/dL 7-18 [facility] Thin prep Papanicolaou smear with manual screeningOrdered By: Davis Armstrong on 05-08-2023 Thin prep Papanicolaou smear with manual screening 3.9 g/dL 3.2-5.0 [facility] Thin prep Papanicolaou smear with manual screening 17 U/L 15-37 [facility] Thin prep Papanicolaou smear with manual screening 3 5-15 [facility] Urine blood detectionOrdered By: Davis Armstrong on 05-08-2023 RBC Ql (U) 10 /ul Negative [facility] Urine clarityOrdered By: Jarek Armstrong on 05-08-2023 Clarity (U) Clear Clear [facility] Urine color determinationOrd ered By: Davis Armstrong on 05-08-2023 Color (U) Straw Yellow [facility] Urine glucose detectionOrder ed By: Davis Armstrong on 05-08-2023 Glucose Ql (U) Normal mg/dl Normal [facility] Urine leukocyte esterase det ection by dipstickOrdered By: Davis Armstrong on 05-08-2023 Leukocyte esterase Test strip Ql (U) Negative Negative [facility] Urine pHOrdered By: Davis waterman on 05-08-2023 pH (U) 6.0 [pH] 5.0 - 8.0 [facility] Urine specific gravity measu rementOrdered By: Davis Armstrong on 05-08-2023 Specific gravity (U) [Rel density] 1.015 1.002-1.030 [facility] Urine urobilinogen measureme ntOrdered By: Davis Armstrong on 05-08-2023 Urobilinogen Ql (U) Normal mg/dl Normal [facility] Whole blood hemoglobin A1c/t otal hemoglobin ratio (mass fraction)Ordered By: Davis Armstrong on 05-08-2023 HbA1c (Bld) [Mass fraction] 6.3 % 3.8-5.6 [facility] Comment on above: Normal < 5.7 % Predi abetic 5.7 - 6.4 % Diabetic >or= 6.5 % Please note range changes. No Panel InformationOrdered By: Davis Armstrong on 01-08-2023 Prostate Specific Antigen Screen 1.48 ng/mL 0.00-4.00 [facility] Comment on above: This test was perfor med using the TPSA assay method [facility] the[facility]. Values obtained with differentassay methods cannot be used interchangably.When changing PSA assays in the course of monitoring apatient, additional sequential testing should be carriedout to confirm baseline values. Absolute lymphocyte countOrd ered By: Dane Sterling on 12-27-2022 Lymphocytes Auto (Unsp spec) [#/Vol] 0.82 10*3/uL 0.83-4.51 [facility] Basophil percentageOrdered B y: Dane Sterling on 12-27-2022 Basophils/100 WBC (Bld) 1.1 % 0-1 [facility] Chloride [Moles/Vol] 108 mmol/L 98-107 [facility] Eosinophils/100 WBC (Bld) 4.0 % 0-5 [facility] Glucose [Mass/Vol] 108 mg/dL 74-106 [facility] Comment on above: Fasting Glucose resu lt from 100 to 125 mg/dL suggests IMPAIRED HOMEOSTASIS per A.D.A. criteria. Neutrophils (Bld) [#/Vol] 3.6 10*3/uL 2.0-7.7 [facility] Neutrophils/100 WBC (Bld) 68.5 % 47-70 [facility] Potassium [Moles/Vol] 3.4 mmol/L 3.5-5.1 [facility] Sodium [Moles/Vol] 138 mmol/L 136-145 [facility] WBC (Bld) [#/Vol] 5.2 10*3/uL 4.4-11.0 [facility] Blood erythrocytes count (nu mber/volume)Ordered By: Dane Sterling on 12-27-2022 RBC (Bld) [#/Vol] 4.41 10*6/uL 4.6-6.2 [facility] Blood hemoglobin measurement (mass/volume)Ordered By: Dane Sterling on 12-27-2022 Hemoglobin (Bld) [Mass/Vol] 13.5 g/dL 13.0-16.5 [facility] Blood lymphocytes/100 leukoc ytesOrdered By: Dane Sterling on 12-27-2022 Lymphocytes/100 WBC (Bld) 15.7 % 19-41 [facility] Blood monocytes/100 leukocyt esOrdered By: Dane Sterling on 12-27-2022 Monocytes/100 WBC (Bld) 10.3 % 0-10 [facility] Blood platelet mean volumeOr dered By: Dane Sterling on 12-27-2022 Platelet mean volume (Bld) [Entitic vol] 10.1 fL 6.2-12.0 [facility] Determination of erythrocyte mean corpuscular volume (MCV)Ordered By: Dane Sterling on 12-27-2022 MCV (RBC) [Entitic vol] 92.7 fL 80-94 [facility] Hematocrit Auto (Bld) [Volum e fraction]Ordered By: Dane Sterling on 12-27-2022 Hematocrit (Bld) [Volume fraction] 40.9 % 40-54 [facility] Laboratory - Chemistry and C hemistry - challengeOrdered By: Dane Sterling on 12-27-2022 CO2 [Moles/Vol] 27.0 mmol/L 21.0-32.0 [facility] Urea nitrogen/Creatinine [Mass ratio] 23.6 mg/mg 10-20 [facility] Laboratory - Hematology and Cell countsOrdered By: Dane Sterling on 12-27-2022 Erythrocyte distribution width (RBC) [Entitic vol] 42.6 fL 35.1-43.9 [facility] Erythrocyte distribution width (RBC) [Ratio] 12.5 % 11.6-14.6 [facility] Immature granulocytes/100 WBC (Bld) 0.400 % 0.0-0.9 [facility] Comment on above: IG% - Immature Granu locytes (promyelocytes, myelocytes and metamyelocytes) > 1% indicates that a LEFT SHIFT is Present. MCH (RBC) [Entitic mass] 30.6 pg 27.0-32.0 [facility] Nucleated RBC/100 WBC (Bld) [Ratio] 0 % 0-5 [facility] MCHC Auto (RBC) [Mass/Vol]Or dered By: Dane Sterling on 12-27-2022 MCHC (RBC) [Mass/Vol] 33.0 g/dL 32-36 [facility] No Panel InformationOrdered By: Dane Sterling on 12-27-2022 D-Dimer Quantitative (PE/DVT) 0.56 FEU/ug/m 0.27-0.49 [facility] Comment on above: D-Dimer ELEVATED (>0 .49): Additional studies and clinicalassessments are indicated to conclude diagnosis of:Deep Vein Thrombosis (DVT) or Pulmonary Embolism (PE)CRITICAL VALUE VERIFIED. CALLED TO TRAM GRANADOS (ER)12/27/22 0857 [address].RESULTS READ BACK BY SAME. Estimated Creatinine Clearance Calc 79.18 ml/min [facility] Estimated GFR (MDRD) Amer 121 mL/min >60 [facility] Comment on above: GFR Calc Estimated GFR (MDRD) Non-Af Amer 100 mL/min >60 [facility] Comment on above: Non- GFR Calc Troponin I High Sensitivity 8 pg/mL 3.0-78.0 [facility] Comment on above: Please Note: New Candie t Units and Gender Specific Reference Ranges. For more information see Policy Stat Procedure [place] High Sensitivity Troponin (TNIH) and attachments. Platelets bldOrdered By: Cody Streling on 12-27-2022 Platelets (Bld) [#/Vol] 235 10*3/uL 150-450 [facility] Serum or plasma calcium ash urement (mass/volume)Ordered By: Dane Sterling on 12-27-2022 Calcium [Mass/Vol] 8.6 mg/dL 8.5-10.1 [facility] Serum or plasma creatinine m easurement (mass/volume)Ordered By: Dane Sterling on 12-27-2022 Creatinine [Mass/Vol] 0.80 mg/dL 0.70-1.30 [facility] Comment on above: The validity of the calculated GFR & GFRAA in patients over 70 years has not been determined. Clinical correlation is essential. Serum or plasma urea nitroge n measurement (mass/volume)Ordered By: Dane Sterling on 12-27-2022 Urea nitrogen [Mass/Vol] 19 mg/dL 7-18 [facility] Thin prep Papanicolaou smear with manual screeningOrdered By: Dane Sterling on 12-27-2022 Thin prep Papanicolaou smear with manual screening 3 5-15 [facility] Absolute lymphocyte countOrd ered By: Davis Armstrong on 10-08-2022 Lymphocytes Auto (Unsp spec) [#/Vol] 0.65 10*3/uL 0.83-4.51 [facility] Basophil percentageOrdered B y: Davis Armstrong on 10-08-2022 Basophil percentage 0 SEEN /hpf 0-5 [facility] Basophils/100 WBC (Bld) 0.8 % 0-1 [facility] Bilirubin [Mass/Vol] 0.90 mg/dL 0.20-1.00 [facility] Comment on above: For patients on eltr ombopag therapy, use of Dimension [place] TBIL is not recommended. Chloride [Moles/Vol] 109 mmol/L 98-107 [facility] Cholesterol [Mass/Vol] 136 mg/dL <200 [facility] Comment on above: <200 mg/dL Desirable 200-240 mg/dL Borderline >240 mg/dL High Risk Eosinophils/100 WBC (Bld) 1.6 % 0-5 [facility] Glucose [Mass/Vol] 103 mg/dL 74-106 [facility] Comment on above: Fasting Glucose resu lt from 100 to 125 mg/dL suggests IMPAIRED HOMEOSTASIS per A.D.A. criteria. Neutrophils (Bld) [#/Vol] 3.7 10*3/uL 2.0-7.7 [facility] Neutrophils/100 WBC (Bld) 75.3 % 47-70 [facility] Potassium [Moles/Vol] 3.6 mmol/L 3.5-5.1 [facility] Protein [Mass/Vol] 7.2 g/dL 6.4-8.2 [facility] Sodium [Moles/Vol] 138 mmol/L 136-145 [facility] Triglyceride [Mass/Vol] 65 mg/dL <199 [facility] Comment on above: The drugs N-Acetylcy steine and Metamizole may falsely depress this assay.Serum Triglycerides Reference Interval Normal <150 mg/dL Borderline high 150 - 199 mg/dL High 200 - 499 mg/dL Very High > or = 500 mg/dL WBC (Bld) [#/Vol] 4.9 10*3/uL 4.4-11.0 [facility] Bilirubin Test strip Ql (U)O rdered By: Davis Armstrong on 10-08-2022 Bilirubin Ql (U) Negative Negative [facility] Blood erythrocytes count (nu mber/volume)Ordered By: Davis Armstrong on 10-08-2022 RBC (Bld) [#/Vol] 4.49 10*6/uL 4.6-6.2 [facility] Blood hemoglobin measurement (mass/volume)Ordered By: Davis Armstrong on 10-08-2022 Hemoglobin (Bld) [Mass/Vol] 13.8 g/dL 13.0-16.5 [facility] Blood lymphocytes/100 leukoc ytesOrdered By: Davis Armstrong on 10-08-2022 Lymphocytes/100 WBC (Bld) 13.2 % 19-41 [facility] Blood monocytes/100 leukocyt esOrdered By: Davis Armstrong on 10-08-2022 Monocytes/100 WBC (Bld) 8.9 % 0-10 [facility] Blood platelet mean volumeOr dered By: Davis Armstrong on 10-08-2022 Platelet mean volume (Bld) [Entitic vol] 10.9 fL 6.2-12.0 [facility] Determination of erythrocyte mean corpuscular volume (MCV)Ordered By: Davis Armstrong on 10-08-2022 MCV (RBC) [Entitic vol] 92.2 fL 80-94 [facility] Hematocrit Auto (Bld) [Volum e fraction]Ordered By: Davis Armstrong on 10-08-2022 Hematocrit (Bld) [Volume fraction] 41.4 % 40-54 [facility] Iron measurement (mass/mass) Ordered By: Davis Armstrong on 10-08-2022 Iron (Unsp spec) [Mass/Mass] 83 ug/dL 65-175 [facility] Ketones Test strip Ql (U)Ord ered By: Davis Armstrong on 10-08-2022 Ketones Ql (U) Negative Negative [facility] Laboratory - Chemistry and C hemistry - challengeOrdered By: Davis Armstrong on 10-08-2022 ALP [Catalytic activity/Vol] 89 U/L 45-117 [facility] ALT [Catalytic activity/Vol] 20 U/L 16-61 [facility] CO2 [Moles/Vol] 24.0 mmol/L 21.0-32.0 [facility] Cobalamin (Vitamin B12) [Mass/Vol] 393 pg/mL 211-911 [facility] Globulin (S) [Mass/Vol] 3.4 g/dL 2.2-4.2 [facility] Urea nitrogen/Creatinine [Mass ratio] 24.4 mg/mg 10-20 [facility] Laboratory - Hematology and Cell countsOrdered By: Davis Armstrong on 10-08-2022 Erythrocyte distribution width (RBC) [Entitic vol] 42.4 fL 35.1-43.9 [facility] Erythrocyte distribution width (RBC) [Ratio] 12.4 % 11.6-14.6 [facility] Immature granulocytes/100 WBC (Bld) 0.200 % 0.0-0.9 [facility] Comment on above: IG% - Immature Granu locytes (promyelocytes, myelocytes and metamyelocytes) > 1% indicates that a LEFT SHIFT is Present. MCH (RBC) [Entitic mass] 30.7 pg 27.0-32.0 [facility] Nucleated RBC/100 WBC (Bld) [Ratio] 0 % 0-5 [facility] MCHC Auto (RBC) [Mass/Vol]Or dered By: Davis Armstrong on 10-08-2022 MCHC (RBC) [Mass/Vol] 33.3 g/dL 32-36 [facility] Mucus LM Ql (Urine sed)Order ed By: Davis Armstrong on 10-08-2022 Mucus Ql (Urine sed) 0 SEEN /hpf [facility] Nitrite Test strip Ql (U)Ord ered By: Davis Armstrong on 10-08-2022 Nitrite Ql (U) Negative Negative [facility] No Panel InformationOrdered By: Davis Armstrong on 10-08-2022 Estimated GFR (MDRD) Amer 154 mL/min >60 [facility] Comment on above: GFR Calc Estimated GFR (MDRD) Non-Af Amer 127 mL/min >60 [facility] Comment on above: Non- GFR Calc Thyroid Stimulating Hormone (TSH) 2.06 uIU/mL 0.358-3.74 [facility] Total Iron Binding Capacity 349 ug/dL 250-450 [facility] Platelets bldOrdered By: Jarek Armstrong on 10-08-2022 Platelets (Bld) [#/Vol] 213 10*3/uL 150-450 [facility] Protein Test strip Ql (U)Ord ered By: Davis Armstrong on 10-08-2022 Protein Ql (U) Negative Negative [facility] Serum or plasma albumin ash urement (mass/volume)Ordered By: Davis Armstrong on 10-08-2022 Albumin [Mass/Vol] 3.8 g/dL 3.2-5.0 [facility] Serum or plasma albumin/glob ulin mass ratioOrdered By: Davis Armstrong on 10-08-2022 Albumin/Globulin [Mass ratio] 1.1 {ratio} 0.9-2.4 [facility] Serum or plasma calcium ash urement (mass/volume)Ordered By: Davis Armstrong on 10-08-2022 Calcium [Mass/Vol] 8.8 mg/dL 8.5-10.1 [facility] Serum or plasma cholesterol in HDL measurement (mass/volume)Ordered By: Davis Armstrong on 10-08-2022 Cholesterol in HDL [Mass/Vol] 58 mg/dL >40 [facility] Comment on above: The drugs N-Acetylcy steine and Metamizole may falsely depress this assay. Reference Range HDL <40 mg/dL Low HDL Cholesterol HDL >or= 60 mg/dL High HDL Cholesterol Serum or plasma cholesterol in VLDL measurement (mass/volume)Ordered By: Davis Armstrong on 10-08-2022 Cholesterol in VLDL [Mass/Vol] 13 mg/dL 5-40 [facility] Serum or plasma creatinine m easurement (mass/volume)Ordered By: Davis Armstrong on 10-08-2022 Creatinine [Mass/Vol] 0.66 mg/dL 0.70-1.30 [facility] Comment on above: The validity of the calculated GFR & GFRAA in patients over 70 years has not been determined. Clinical correlation is essential. Serum or plasma ferritin elham surement (mass/volume)Ordered By: Davis Armstrong on 10-08-2022 Ferritin [Mass/Vol] 187 ng/mL 26-388 [facility] Serum or plasma folate measu rement (mass/volume)Ordered By: Davis Armstrong on 10-08-2022 Folate [Mass/Vol] 10.00 ng/mL 3.1-55.4 [facility] Serum or plasma low density lipoprotein (LDL) cholesterol measurement (mass/volume)Ordered By: Davis Armstrong on 10-08-2022 Cholesterol in LDL [Mass/Vol] 65 mg/dL 0-130 [facility] Serum or plasma urea nitroge n measurement (mass/volume)Ordered By: Davis Armstrong on 10-08-2022 Urea nitrogen [Mass/Vol] 16 mg/dL 7-18 [facility] Squamous epithelial cells de tection in urine sediment by light microscopyOrdered By: Davis Armstrong on 10-08-2022 Epithelial cells.squamous LM Ql (Urine sed) 0 SEEN /hpf 0-5 [facility] Thin prep Papanicolaou smear with manual screeningOrdered By: Davis Armstrong on 10-08-2022 Thin prep Papanicolaou smear with manual screening 24 U/L 15-37 [facility] Thin prep Papanicolaou smear with manual screening 5 5-15 [facility] Urine blood detectionOrdered By: Davis Armstrong on 10-08-2022 RBC Ql (U) Negative Negative [facility] RBC Ql (U) 0 SEEN /hpf 0-5 [facility] Urine clarityOrdered By: Jarek Armstrong on 10-08-2022 Clarity (U) Clear Clear [facility] Urine color determinationOrd ered By: Davis Armstrong on 10-08-2022 Color (U) Straw Yellow [facility] Urine glucose detectionOrder ed By: Davis Armstrong on 10-08-2022 Glucose Ql (U) Normal mg/dl Normal [facility] Urine leukocyte esterase det ection by dipstickOrdered By: Davis Armstrong on 10-08-2022 Leukocyte esterase Test strip Ql (U) Negative Negative [facility] Urine pHOrdered By: Davis waterman on 10-08-2022 pH (U) 7.0 [pH] 5.0 - 8.0 [facility] Urine sediment bacteria coun t by microscopy (number/high power field)Ordered By: Davis Armstrong on 10-08-2022 Bacteria LM.HPF (Urine sed) [#/Area] 0 /[HPF] None Seen [facility] Urine specific gravity measu rementOrdered By: Davis Armstrong on 10-08-2022 Specific gravity (U) [Rel density] 1.010 1.002-1.030 [facility] Urobilinogen Auto test strip Ql (U)Ordered By: Davis Armstrong on 10-08-2022 Urobilinogen Ql (U) Normal mg/dl Normal [facility] Whole blood hemoglobin A1c/t otal hemoglobin ratio (mass fraction)Ordered By: Davis Armstrong on 10-08-2022 HbA1c (Bld) [Mass fraction] 6.1 % 3.8-5.6 [facility] Comment on above: Normal < 5.7 % Predi abetic 5.7 - 6.4 % Diabetic >or= 6.5 % Please note range changes. Basophil percentageOrdered B y: Dr. Mayes on 03-28-2022 Chloride [Moles/Vol] 107 mmol/L 98-107 [facility] Glucose [Mass/Vol] 92 mg/dL 74-106 [facility] Potassium [Moles/Vol] 3.7 mmol/L 3.5-5.1 [facility] Sodium [Moles/Vol] 140 mmol/L 136-145 [facility] WBC (Bld) [#/Vol] 5.3 10*3/uL 4.4-11.0 [facility] Blood erythrocytes count (nu mber/volume)Ordered By: Dr. Mayes on 03-28-2022 RBC (Bld) [#/Vol] 4.32 10*6/uL 4.6-6.2 [facility] Blood hemoglobin measurement (mass/volume)Ordered By: Dr. Mayes on 03-28-2022 Hemoglobin (Bld) [Mass/Vol] 13.2 g/dL 13.0-16.5 [facility] Blood platelet mean volumeOr dered By: Dr. Mayes on 03-28-2022 Platelet mean volume (Bld) [Entitic vol] 10.8 fL 6.2-12.0 [facility] Determination of erythrocyte mean corpuscular volume (MCV)Ordered By: Dr. Mayes on 03-28-2022 MCV (RBC) [Entitic vol] 92.4 fL 80-94 [facility] Hematocrit Auto (Bld) [Volum e fraction]Ordered By: Dr. Mayes on 03-28-2022 Hematocrit (Bld) [Volume fraction] 39.9 % 40-54 [facility] Laboratory - Chemistry and C hemistry - challengeOrdered By: Dr. Mayes on 03-28-2022 CO2 [Moles/Vol] 26.0 mmol/L 21.0-32.0 [facility] Urea nitrogen/Creatinine [Mass ratio] 25.2 mg/mg 10-20 [facility] Laboratory - Hematology and Cell countsOrdered By: Dr. Mayes on 03-28-2022 Erythrocyte distribution width (RBC) [Entitic vol] 43.5 fL 35.1-43.9 [facility] Erythrocyte distribution width (RBC) [Ratio] 13.0 % 11.6-14.6 [facility] MCH (RBC) [Entitic mass] 30.6 pg 27.0-32.0 [facility] MCHC Auto (RBC) [Mass/Vol]Or dered By: Dr. Mayes on 03-28-2022 MCHC (RBC) [Mass/Vol] 33.1 g/dL 32-36 [facility] No Panel InformationOrdered By: Dr. Mayes on 03-28-2022 Estimated GFR (MDRD) Amer 140 mL/min >60 [facility] Comment on above: GFR Calc Estimated GFR (MDRD) Non-Af Amer 116 mL/min >60 [facility] Comment on above: Non- GFR Calc Platelets bldOrdered By: Dr. Mayes on 03-28-2022 Platelets (Bld) [#/Vol] 233 10*3/uL 150-450 [facility] Serum or plasma calcium ash urement (mass/volume)Ordered By: Dr. Mayes on 03-28-2022 Calcium [Mass/Vol] 8.8 mg/dL 8.5-10.1 [facility] Serum or plasma creatinine m easurement (mass/volume)Ordered By: Dr. Mayes on 03-28-2022 Creatinine [Mass/Vol] 0.71 mg/dL 0.70-1.30 [facility] Comment on above: The validity of the calculated GFR & GFRAA in patients over 70 years has not been determined. Clinical correlation is essential. Serum or plasma urea nitroge n measurement (mass/volume)Ordered By: Dr. Mayes on 03-28-2022 Urea nitrogen [Mass/Vol] 18 mg/dL 7-18 [facility] Thin prep Papanicolaou smear with manual screeningOrdered By: Dr. Mayes on 03-28-2022 Thin prep Papanicolaou smear with manual screening 7 5-15 [facility] Absolute lymphocyte countOrd ered By: Dr. Hatch on 01-16-2022 Lymphocytes Auto (Unsp spec) [#/Vol] 0.63 10*3/uL 0.83-4.51 [facility] Basophil percentageOrdered B y: Dr. Hatch on 01-16-2022 Basophil percentage 10-25 SEEN /hpf 0-5 [facility] Basophils/100 WBC (Bld) 0.6 % 0-1 [facility] Chloride [Moles/Vol] 106 mmol/L 98-107 [facility] Eosinophils/100 WBC (Bld) 0.6 % 0-5 [facility] Glucose [Mass/Vol] 153 mg/dL 74-106 [facility] Comment on above: Fasting Glucose resu lt greater than or equal to 126 mg/dL suggests DIABETES MELLITUS per A.D.A. criteria. Neutrophils (Bld) [#/Vol] 6.6 10*3/uL 2.0-7.7 [facility] Neutrophils/100 WBC (Bld) 83.2 % 47-70 [facility] Potassium [Moles/Vol] 3.3 mmol/L 3.5-5.1 [facility] Sodium [Moles/Vol] 137 mmol/L 136-145 [facility] WBC (Bld) [#/Vol] 7.9 10*3/uL 4.4-11.0 [facility] Bilirubin Test strip Ql (U)O rdered By: Dr. Hatch on 01-16-2022 Bilirubin Ql (U) Negative Negative [facility] Blood erythrocytes count (nu mber/volume)Ordered By: Dr. Hatch on 01-16-2022 RBC (Bld) [#/Vol] 4.32 10*6/uL 4.6-6.2 [facility] Blood hemoglobin measurement (mass/volume)Ordered By: Dr. Hatch on 01-16-2022 Hemoglobin (Bld) [Mass/Vol] 13.4 g/dL 13.0-16.5 [facility] Blood lymphocytes/100 leukoc ytesOrdered By: Dr. Hatch on 01-16-2022 Lymphocytes/100 WBC (Bld) 8.0 % 19-41 [facility] Blood monocytes/100 leukocyt esOrdered By: Dr. Hatch on 01-16-2022 Monocytes/100 WBC (Bld) 7.2 % 0-10 [facility] Blood platelet mean volumeOr dered By: Dr. Hatch on 01-16-2022 Platelet mean volume (Bld) [Entitic vol] 10.3 fL 6.2-12.0 [facility] Determination of erythrocyte mean corpuscular volume (MCV)Ordered By: Dr. Hatch on 01-16-2022 MCV (RBC) [Entitic vol] 91.4 fL 80-94 [facility] Glucose Glucometer (BldC) [M ass/Vol]Ordered By: Dr. Mayes on 01-16-2022 Glucose [Mass/Vol] 111 mg/dL 74-106 [facility] Comment on above: MANAGEMENT OF PATIEN T CARE PER NURSING PROTOCOL Hematocrit Auto (Bld) [Volum e fraction]Ordered By: Dr. Hatch on 01-16-2022 Hematocrit (Bld) [Volume fraction] 39.5 % 40-54 [facility] Ketones Test strip Ql (U)Ord ered By: Dr. Hatch on 01-16-2022 Ketones Ql (U) Negative Negative [facility] Laboratory - Chemistry and C hemistry - challengeOrdered By: Dr. Hatch on 01-16-2022 CO2 [Moles/Vol] 25.0 mmol/L 21.0-32.0 [facility] Urea nitrogen/Creatinine [Mass ratio] 23.4 mg/mg 10-20 [facility] Laboratory - Hematology and Cell countsOrdered By: Dr. Hatch on 01-16-2022 Erythrocyte distribution width (RBC) [Entitic vol] 42.2 fL 35.1-43.9 [facility] Erythrocyte distribution width (RBC) [Ratio] 12.7 % 11.6-14.6 [facility] Immature granulocytes/100 WBC (Bld) 0.400 % 0.0-0.9 [facility] Comment on above: IG% - Immature Granu locytes (promyelocytes, myelocytes and metamyelocytes) > 1% indicates that a LEFT SHIFT is Present. MCH (RBC) [Entitic mass] 31.0 pg 27.0-32.0 [facility] Nucleated RBC/100 WBC (Bld) [Ratio] 0 % 0-5 [facility] MCHC Auto (RBC) [Mass/Vol]Or dered By: Dr. Hatch on 01-16-2022 MCHC (RBC) [Mass/Vol] 33.9 g/dL 32-36 [facility] Mucus LM Ql (Urine sed)Order ed By: Dr. Hatch on 01-16-2022 Mucus Ql (Urine sed) 0 SEEN /hpf [facility] Nitrite Test strip Ql (U)Ord ered By: Dr. Hatch on 01-16-2022 Nitrite Ql (U) Negative Negative [facility] No Panel InformationOrdered By: Dr. Hatch on 01-16-2022 Estimated Creatinine Clearance Calc 70.38 ml/min [facility] Estimated GFR (MDRD) Amer 107 mL/min >60 [facility] Comment on above: GFR Calc Estimated GFR (MDRD) Non-Af Amer 89 mL/min >60 [facility] Comment on above: Non- GFR Calc Platelets bldOrdered By: Dr. Hatch on 01-16-2022 Platelets (Bld) [#/Vol] 236 10*3/uL 150-450 [facility] Protein Test strip Ql (U)Ord ered By: Dr. Hatch on 01-16-2022 Protein Ql (U) 500 mg/dl Negative [facility] Serum or plasma calcium ash urement (mass/volume)Ordered By: Dr. Hatch on 01-16-2022 Calcium [Mass/Vol] 8.5 mg/dL 8.5-10.1 [facility] Serum or plasma creatinine m easurement (mass/volume)Ordered By: Dr. Hatch on 01-16-2022 Creatinine [Mass/Vol] 0.90 mg/dL 0.70-1.30 [facility] Comment on above: The validity of the calculated GFR & GFRAA in patients over 70 years has not been determined. Clinical correlation is essential. Serum or plasma urea nitroge n measurement (mass/volume)Ordered By: Dr. Hatch on 01-16-2022 Urea nitrogen [Mass/Vol] 21 mg/dL 7-18 [facility] Squamous epithelial cells de tection in urine sediment by light microscopyOrdered By: Dr. Hatch on 01-16-2022 Epithelial cells.squamous LM Ql (Urine sed) 0 SEEN /hpf 0-5 [facility] Thin prep Papanicolaou smear with manual screeningOrdered By: Dr. Hatch on 01-16-2022 Thin prep Papanicolaou smear with manual screening 6 5-15 [facility] Urine blood detectionOrdered By: Dr. Hatch on 01-16-2022 RBC Ql (U) 250 /ul Negative [facility] RBC Ql (U) > 100 SEEN /hpf 0-5 [facility] Urine clarityOrdered By: Dr. Hatch on 01-16-2022 Clarity (U) Turbid Clear [facility] Urine color determinationOrd ered By: Dr. Hatch on 01-16-2022 Color (U) Red Yellow [facility] Urine glucose detectionOrder ed By: Dr. Hatch on 01-16-2022 Glucose Ql (U) 50 mg/dl Normal [facility] Urine leukocyte esterase det ection by dipstickOrdered By: Dr. Hatch on 01-16-2022 Leukocyte esterase Test strip Ql (U) 25 /ul Negative [facility] Urine pHOrdered By: Dr. Lawson wu on 01-16-2022 pH (U) 7.0 [pH] 5.0 - 8.0 [facility] Urine sediment bacteria coun t by microscopy (number/high power field)Ordered By: Dr. Hatch on 01-16-2022 Bacteria LM.HPF (Urine sed) [#/Area] 0 /[HPF] None Seen [facility] Urine specific gravity measu rementOrdered By: Dr. Hatch on 01-16-2022 Specific gravity (U) [Rel density] 1.010 1.002-1.030 [facility] Urobilinogen Auto test strip Ql (U)Ordered By: Dr. Hatch on 01-16-2022 Urobilinogen Ql (U) Normal mg/dl Normal [facility] Glucose Glucometer (BldC) [M ass/Vol]Ordered By: Dr. Mayes on 12-19-2021 Glucose [Mass/Vol] 99 mg/dL 74-106 [facility] Comment on above: MANAGEMENT OF PATIEN T CARE PER NURSING PROTOCOL Absolute lymphocyte countOrd ered By: Dr. Armstrong on 12-18-2021 Lymphocytes Auto (Unsp spec) [#/Vol] 0.70 10*3/uL 0.83-4.51 [facility] Basophil percentageOrdered B y: Dr. Armstrong on 12-18-2021 Basophils/100 WBC (Bld) 0.6 % 0-1 [facility] Bilirubin [Mass/Vol] 1.00 mg/dL 0.20-1.00 [facility] Comment on above: For patients on eltr ombopag therapy, use of Dimension [place] TBIL is not recommended. Chloride [Moles/Vol] 107 mmol/L 98-107 [facility] Cholesterol [Mass/Vol] 120 mg/dL <200 [facility] Comment on above: <200 mg/dL Desirable 200-240 mg/dL Borderline >240 mg/dL High Risk Eosinophils/100 WBC (Bld) 0.7 % 0-5 [facility] Glucose [Mass/Vol] 95 mg/dL 74-106 [facility] Neutrophils (Bld) [#/Vol] 9.0 10*3/uL 2.0-7.7 [facility] Neutrophils/100 WBC (Bld) 84.2 % 47-70 [facility] Potassium [Moles/Vol] 3.7 mmol/L 3.5-5.1 [facility] Protein [Mass/Vol] 7.0 g/dL 6.4-8.2 [facility] Sodium [Moles/Vol] 139 mmol/L 136-145 [facility] Triglyceride [Mass/Vol] 53 mg/dL <199 [facility] Comment on above: The drugs N-Acetylcy steine and Metamizole may falsely depress this assay.Serum Triglycerides Reference Interval Normal <150 mg/dL Borderline high 150 - 199 mg/dL High 200 - 499 mg/dL Very High > or = 500 mg/dL WBC (Bld) [#/Vol] 10.7 10*3/uL 4.4-11.0 [facility] Blood erythrocytes count (nu mber/volume)Ordered By: Dr. Armstrong on 12-18-2021 RBC (Bld) [#/Vol] 4.39 10*6/uL 4.6-6.2 [facility] Blood hemoglobin measurement (mass/volume)Ordered By: Dr. Armstrong on 12-18-2021 Hemoglobin (Bld) [Mass/Vol] 13.6 g/dL 13.0-16.5 [facility] Blood lymphocytes/100 leukoc ytesOrdered By: Dr. Armstrong on 12-18-2021 Lymphocytes/100 WBC (Bld) 6.6 % 19-41 [facility] Blood monocytes/100 leukocyt esOrdered By: Dr. Armstrong on 12-18-2021 Monocytes/100 WBC (Bld) 7.4 % 0-10 [facility] Blood platelet mean volumeOr dered By: Dr. Armstrong on 12-18-2021 Platelet mean volume (Bld) [Entitic vol] 11.0 fL 6.2-12.0 [facility] Determination of erythrocyte mean corpuscular volume (MCV)Ordered By: Dr. Armstrong on 12-18-2021 MCV (RBC) [Entitic vol] 92.7 fL 80-94 [facility] Hematocrit Auto (Bld) [Volum e fraction]Ordered By: Dr. Armstrong on 12-18-2021 Hematocrit (Bld) [Volume fraction] 40.7 % 40-54 [facility] Iron measurement (mass/mass) Ordered By: Dr. Armstrong on 12-18-2021 Iron (Unsp spec) [Mass/Mass] 32 ug/dL 65-175 [facility] Laboratory - Chemistry and C hemistry - challengeOrdered By: Dr. Armstrong on 12-18-2021 ALP [Catalytic activity/Vol] 79 U/L 45-117 [facility] ALT [Catalytic activity/Vol] 22 U/L 16-61 [facility] CO2 [Moles/Vol] 26.0 mmol/L 21.0-32.0 [facility] Cobalamin (Vitamin B12) [Mass/Vol] 534 pg/mL 211-911 [facility] Globulin (S) [Mass/Vol] 3.5 g/dL 2.2-4.2 [facility] Transferrin [Mass/Vol] 211 mg/dL 177-329 [facility] Comment on above: Performed at: [address] [id number] Director: Scooby Downs PhD, Phone: [phone] Urea nitrogen/Creatinine [Mass ratio] 23.4 mg/mg 10-20 [facility] Laboratory - Hematology and Cell countsOrdered By: Dr. Armstrong on 12-18-2021 Erythrocyte distribution width (RBC) [Entitic vol] 43.7 fL 35.1-43.9 [facility] Erythrocyte distribution width (RBC) [Ratio] 12.6 % 11.6-14.6 [facility] Immature granulocytes/100 WBC (Bld) 0.500 % 0.0-0.9 [facility] Comment on above: IG% - Immature Granu locytes (promyelocytes, myelocytes and metamyelocytes) > 1% indicates that a LEFT SHIFT is Present. MCH (RBC) [Entitic mass] 31.0 pg 27.0-32.0 [facility] Nucleated RBC/100 WBC (Bld) [Ratio] 0 % 0-5 [facility] MCHC Auto (RBC) [Mass/Vol]Or dered By: Dr. Armstrong on 12-18-2021 MCHC (RBC) [Mass/Vol] 33.4 g/dL 32-36 [facility] No Panel InformationOrdered By: Dr. Armstrong on 12-18-2021 Estimated GFR (MDRD) Amer 137 mL/min >60 [facility] Comment on above: GFR Calc Estimated GFR (MDRD) Non-Af Amer 114 mL/min >60 [facility] Comment on above: Non- GFR Calc Prostate Specific Antigen Screen 0.82 ng/mL 0.00-4.00 [facility] Comment on above: This test was perfor med using the TPSA assay method [facility]. Values obtained with differentassay methods cannot be used interchangably.When changing PSA assays in the course of monitoring apatient, additional sequential testing should be carriedout to confirm baseline values. Total Iron Binding Capacity 269 ug/dL 250-450 [facility] Platelets bldOrdered By: Dr. Armstrong on 12-18-2021 Platelets (Bld) [#/Vol] 262 10*3/uL 150-450 [facility] Serum or plasma albumin ash urement (mass/volume)Ordered By: Dr. Armstrong on 12-18-2021 Albumin [Mass/Vol] 3.5 g/dL 3.2-5.0 [facility] Serum or plasma albumin/glob ulin mass ratioOrdered By: Dr. Armstrong on 12-18-2021 Albumin/Globulin [Mass ratio] 1.0 {ratio} 0.9-2.4 [facility] Serum or plasma calcium ash urement (mass/volume)Ordered By: Dr. Armstrong on 12-18-2021 Calcium [Mass/Vol] 9.0 mg/dL 8.5-10.1 [facility] Serum or plasma cholesterol in HDL measurement (mass/volume)Ordered By: Dr. Armstrong on 12-18-2021 Cholesterol in HDL [Mass/Vol] 61 mg/dL >40 [facility] Comment on above: The drugs N-Acetylcy steine and Metamizole may falsely depress this assay. Reference Range HDL <40 mg/dL Low HDL Cholesterol HDL >or= 60 mg/dL High HDL Cholesterol Serum or plasma cholesterol in VLDL measurement (mass/volume)Ordered By: Dr. Armstrong on 12-18-2021 Cholesterol in VLDL [Mass/Vol] 11 mg/dL 5-40 [facility] Serum or plasma creatinine m easurement (mass/volume)Ordered By: Dr. Armstrong on 12-18-2021 Creatinine [Mass/Vol] 0.72 mg/dL 0.70-1.30 [facility] Comment on above: The validity of the calculated GFR & GFRAA in patients over 70 years has not been determined. Clinical correlation is essential. Serum or plasma ferritin elham surement (mass/volume)Ordered By: Dr. Armstrong on 12-18-2021 Ferritin [Mass/Vol] 339 ng/mL 26-388 [facility] Serum or plasma low density lipoprotein (LDL) cholesterol measurement (mass/volume)Ordered By: Dr. Armstrong on 12-18-2021 Cholesterol in LDL [Mass/Vol] 48 mg/dL 0-130 [facility] Serum or plasma urea nitroge n measurement (mass/volume)Ordered By: Dr. Armstrong on 12-18-2021 Urea nitrogen [Mass/Vol] 17 mg/dL 7-18 [facility] Thin prep Papanicolaou smear with manual screeningOrdered By: Dr. Armstrong on 12-18-2021 Thin prep Papanicolaou smear with manual screening 20 U/L 15-37 [facility] Thin prep Papanicolaou smear with manual screening 6 5-15 [facility] Whole blood hemoglobin A1c/t otal hemoglobin ratio (mass fraction)Ordered By: Dr. Armstrong on 12-18-2021 HbA1c (Bld) [Mass fraction] 6.1 % 3.8-5.6 [facility] Comment on above: Normal < 5.7 % Predi abetic 5.7 - 6.4 % Diabetic >or= 6.5 % Please note range changes. Absolute lymphocyte counton 12-02-2021 Lymphocytes Auto (Unsp spec) [#/Vol] 0.63 10*3/uL 0.83-4.51 [facility] Work Phone: Basophil percentageon 2021 Basophil percentage 0-5 SEEN /hpf 0-5 [facility] Work Phone: Basophils/100 WBC (Bld) 0.6 % 0-1 [facility] Work Phone: Bilirubin [Mass/Vol] 1.00 mg/dL 0.20-1.00 [facility] Work Phone: Comment on above: For patients on eltr ombopag therapy, use of Dimension [place] TBIL is not recommended. Chloride [Moles/Vol] 109 mmol/L 98-107 [facility] Work Phone: Eosinophils/100 WBC (Bld) 0.4 % 0-5 [facility] Work Phone: Glucose [Mass/Vol] 111 mg/dL 74-106 [facility] Work Phone: Comment on above: Fasting Glucose resu lt from 100 to 125 mg/dL suggests IMPAIRED HOMEOSTASIS per A.D.A. criteria. Neutrophils (Bld) [#/Vol] 9.1 10*3/uL 2.0-7.7 [facility] Work Phone: Neutrophils/100 WBC (Bld) 83.8 % 47-70 [facility] Work Phone: Potassium [Moles/Vol] 3.7 mmol/L 3.5-5.1 [facility] Work Phone: Protein [Mass/Vol] 7.2 g/dL 6.4-8.2 [facility] Work Phone: Sodium [Moles/Vol] 144 mmol/L 136-145 [facility] Work Phone: WBC (Bld) [#/Vol] 10.9 10*3/uL 4.4-11.0 [facility] Work Phone: Bilirubin Test strip Ql (U)o n 12-02-2021 Bilirubin Ql (U) Negative Negative [facility] Work Phone: Blood erythrocytes count (nu mber/volume)on 12-02-2021 RBC (Bld) [#/Vol] 4.65 10*6/uL 4.6-6.2 [facility] Work Phone: Blood hemoglobin measurement (mass/volume)on 12-02-2021 Hemoglobin (Bld) [Mass/Vol] 14.4 g/dL 13.0-16.5 [facility] Work Phone: Blood lymphocytes/100 leukoc yteson 12-02-2021 Lymphocytes/100 WBC (Bld) 5.8 % 19-41 [facility] Work Phone: Blood monocytes/100 leukocyt eson 12-02-2021 Monocytes/100 WBC (Bld) 9.1 % 0-10 [facility] Work Phone: Blood platelet mean volumeon 12-02-2021 Platelet mean volume (Bld) [Entitic vol] 10.4 fL 6.2-12.0 [facility] Work Phone: Determination of erythrocyte mean corpuscular volume (MCV)on 12-02-2021 MCV (RBC) [Entitic vol] 94.2 fL 80-94 [facility] Work Phone: Hematocrit Auto (Bld) [Volum e fraction]on 12-02-2021 Hematocrit (Bld) [Volume fraction] 43.8 % 40-54 [facility] Work Phone: [phone] Ketones Test strip Ql (U)on 12-02-2021 Ketones Ql (U) Negative Negative [facility] Work Phone: [phone] Laboratory - Chemistry and C hemistry - challengeon 12-02-2021 ALP [Catalytic activity/Vol] 71 U/L 45-117 [facility] Work Phone: [phone] ALT [Catalytic activity/Vol] 21 U/L 16-61 [facility] Work Phone: [phone] CO2 [Moles/Vol] 27.0 mmol/L 21.0-32.0 [facility] Work Phone: [phone] Globulin (S) [Mass/Vol] 3.4 g/dL 2.2-4.2 [facility] Work Phone: [phone] Lipase [Catalytic activity/Vol] 112 U/L 73-393 [facility] Work Phone: [phone] Urea nitrogen/Creatinine [Mass ratio] 22.2 mg/mg 10-20 [facility] Work Phone: [phone] Laboratory - Hematology and Cell countson 12-02-2021 Erythrocyte distribution width (RBC) [Entitic vol] 44.7 fL 35.1-43.9 [facility] Work Phone: [phone] Erythrocyte distribution width (RBC) [Ratio] 13.1 % 11.6-14.6 [facility] Work Phone: [phone] Immature granulocytes/100 WBC (Bld) 0.300 % 0.0-0.9 [facility] Work Phone: [phone] Comment on above: IG% - Immature Granu locytes (promyelocytes, myelocytes and metamyelocytes) > 1% indicates that a LEFT SHIFT is Present. MCH (RBC) [Entitic mass] 31.0 pg 27.0-32.0 [facility] Work Phone: [phone] Nucleated RBC/100 WBC (Bld) [Ratio] 0 % 0-5 [facility] Work Phone: [phone] MCHC Auto (RBC) [Mass/Vol]on 12-02-2021 MCHC (RBC) [Mass/Vol] 32.9 g/dL 32-36 [facility] Work Phone: [phone] Mucus LM Ql (Urine sed)on Mucus Ql (Urine sed) 0 SEEN /hpf [facility] Work Phone: Nitrite Test strip Ql (U)on 12-02-2021 Nitrite Ql (U) Negative Negative [facility] Work Phone: [phone] No Panel Informationon 12-02 Estimated Creatinine Clearance Calc 51.00 ml/min [facility] Work Phone: [phone] Estimated GFR (MDRD) Amer 73 mL/min >60 [facility] Work Phone: [phone] Comment on above: GFR Calc Estimated GFR (MDRD) Non-Af Amer 60 mL/min >60 [facility] Work Phone: Comment on above: Non- GFR Calc Platelets bldon 12-02-2021 Platelets (Bld) [#/Vol] 216 10*3/uL 150-450 [facility] Work Phone: [phone] Protein Test strip Ql (U)on 12-02-2021 Protein Ql (U) 15 mg/dl Negative [facility] Work Phone: [phone] Serum or plasma albumin ash urement (mass/volume)on 12-02-2021 Albumin [Mass/Vol] 3.8 g/dL 3.2-5.0 [facility] Work Phone: [phone] Serum or plasma albumin/glob ulin mass ratioon 12-02-2021 Albumin/Globulin [Mass ratio] 1.1 {ratio} 0.9-2.4 [facility] Work Phone: [phone] Serum or plasma calcium ash urement (mass/volume)on 12-02-2021 Calcium [Mass/Vol] 9.2 mg/dL 8.5-10.1 [facility] Work Phone: [phone] Serum or plasma creatinine m easurement (mass/volume)on 12-02-2021 Creatinine [Mass/Vol] 1.26 mg/dL 0.70-1.30 [facility] Work Phone: Comment on above: The validity of the calculated GFR & GFRAA in patients over 70 years has not been determined. Clinical correlation is essential. Serum or plasma urea nitroge n measurement (mass/volume)on 12-02-2021 Urea nitrogen [Mass/Vol] 28 mg/dL -18 [facility] Work Phone: [phone] Squamous epithelial cells de tection in urine sediment by light microscopyon 12-02-2021 Epithelial cells.squamous LM Ql (Urine sed) 0 SEEN /hpf 0-5 [facility] Work Phone: Thin prep Papanicolaou smear with manual screeningon 12-02-2021 Thin prep Papanicolaou smear with manual screening 25 U/L 15-37 [facility] Work Phone: Thin prep Papanicolaou smear with manual screening 8 5-15 [facility] Work Phone: Urine blood detectionon 11-15 RBC Ql (U) 150 /ul Negative [facility] Work Phone: [phone] RBC Ql (U) 5-10 SEEN /hpf 0-5 [facility] Work Phone: [phone] Urine clarityon 12-02-2021 Clarity (U) Clear Clear [facility] Work Phone: Urine color determinationon 12-02-2021 Color (U) Yellow Yellow [facility] Work Phone: Urine glucose detectionon Glucose Ql (U) Normal mg/dl Normal [facility] Work Phone: [phone] Urine leukocyte esterase det ection by dipstickon 12-02-2021 Leukocyte esterase Test strip Ql (U) Negative Negative [facility] Work Phone: [phone] Urine pHon 12-02-2021 pH (U) 6.0 [pH] 5.0 - 8.0 [facility] Work Phone: [phone] Urine sediment bacteria coun t by microscopy (number/high power field)on 12-02-2021 Bacteria LM.HPF (Urine sed) [#/Area] RARE /hpf None Seen [facility] Work Phone: Urine specific gravity measu rementon 12-02-2021 Specific gravity (U) [Rel density] 1.015 1.002-1.030 [facility] Work Phone: Urobilinogen Auto test strip Ql (U)on 12-02-2021 Urobilinogen Ql (U) Normal mg/dl Normal [facility] Work Phone: Absolute lymphocyte counton 10-02-2021 Lymphocytes Auto (Unsp spec) [#/Vol] 0.89 10*3/uL 0.83-4.51 [facility] Work Phone: Basophil percentageon 2021 Basophils/100 WBC (Bld) 1.2 % 0-1 [facility] Work Phone: Bilirubin [Mass/Vol] 0.80 mg/dL 0.20-1.00 [facility] Work Phone: Comment on above: For patients on eltr ombopag therapy, use of Dimension [place] TBIL is not recommended. Chloride [Moles/Vol] 107 mmol/L 98-107 [facility] Work Phone: Cholesterol [Mass/Vol] 132 mg/dL <200 [facility] Work Phone: Comment on above: <200 mg/dL Desirable 200-240 mg/dL Borderline >240 mg/dL High Risk Eosinophils/100 WBC (Bld) 2.7 % 0-5 [facility] Work Phone: Glucose [Mass/Vol] 95 mg/dL 74-106 [facility] Work Phone: Neutrophils (Bld) [#/Vol] 3.3 10*3/uL 2.0-7.7 [facility] Work Phone: Neutrophils/100 WBC (Bld) 68.0 % 47-70 [facility] Work Phone: Potassium [Moles/Vol] 3.7 mmol/L 3.5-5.1 [facility] Work Phone: [phone] Protein [Mass/Vol] 6.6 g/dL 6.4-8.2 [facility] Work Phone: [phone] Sodium [Moles/Vol] 140 mmol/L 136-145 [facility] Work Phone: [phone] Triglyceride [Mass/Vol] 54 mg/dL <199 [facility] Work Phone: [phone] Comment on above: The drugs N-Acetylcy steine and Metamizole may falsely depress this assay.Serum Triglycerides Reference Interval Normal <150 mg/dL Borderline high 150 - 199 mg/dL High 200 - 499 mg/dL Very High > or = 500 mg/dL WBC (Bld) [#/Vol] 4.8 10*3/uL 4.4-11.0 [facility] Work Phone: Blood erythrocytes count (nu mber/volume)on 10-02-2021 RBC (Bld) [#/Vol] 4.07 10*6/uL 4.6-6.2 [facility] Work Phone: [phone] Blood hemoglobin measurement (mass/volume)on 10-02-2021 Hemoglobin (Bld) [Mass/Vol] 12.9 g/dL 13.0-16.5 [facility] Work Phone: Blood lymphocytes/100 leukoc yteson 10-02-2021 Lymphocytes/100 WBC (Bld) 18.5 % 19-41 [facility] Work Phone: [phone] Blood monocytes/100 leukocyt eson 10-02-2021 Monocytes/100 WBC (Bld) 9.4 % 0-10 [facility] Work Phone: Blood platelet mean volumeon 10-02-2021 Platelet mean volume (Bld) [Entitic vol] 10.8 fL 6.2-12.0 [facility] Work Phone: [phone] Determination of erythrocyte mean corpuscular volume (MCV)on 10-02-2021 MCV (RBC) [Entitic vol] 95.3 fL 80-94 [facility] Work Phone: [phone] Hematocrit Auto (Bld) [Volum e fraction]on 10-02-2021 Hematocrit (Bld) [Volume fraction] 38.8 % 40-54 [facility] Work Phone: [phone] Iron measurement (mass/mass) on 10-02-2021 Iron (Unsp spec) [Mass/Mass] 104 ug/dL 65-175 [facility] Work Phone: [phone] Laboratory - Chemistry and C hemistry - challengeon 10-02-2021 Cobalamin (Vitamin B12) [Mass/Vol] 449 pg/mL 211-911 [facility] Work Phone: ALP [Catalytic activity/Vol] 68 U/L 45-117 [facility] Work Phone: [phone] ALT [Catalytic activity/Vol] 21 U/L 16-61 [facility] Work Phone: [phone] CO2 [Moles/Vol] 27.0 mmol/L 21.0-32.0 [facility] Work Phone: [phone] Globulin (S) [Mass/Vol] 3.1 g/dL 2.2-4.2 [facility] Work Phone: [phone] Transferrin [Mass/Vol] 229 mg/dL 177-329 [facility] Work Phone: [phone] Comment on above: Performed at: [address] [id number] Director: Scooby Downs PhD, Phone: [phone] Urea nitrogen/Creatinine [Mass ratio] 31.4 mg/mg 10-20 [facility] Work Phone: [phone] Laboratory - Hematology and Cell countson 10-02-2021 Erythrocyte distribution width (RBC) [Entitic vol] 43.9 fL 35.1-43.9 [facility] Work Phone: [phone] Erythrocyte distribution width (RBC) [Ratio] 12.5 % 11.6-14.6 [facility] Work Phone: [phone] Immature granulocytes/100 WBC (Bld) 0.200 % 0.0-0.9 [facility] Work Phone: Comment on above: IG% - Immature Granu locytes (promyelocytes, myelocytes and metamyelocytes) > 1% indicates that a LEFT SHIFT is Present. MCH (RBC) [Entitic mass] 31.7 pg 27.0-32.0 [facility] Work Phone: Nucleated RBC/100 WBC (Bld) [Ratio] 0 % 0-5 [facility] Work Phone: [phone] MCHC Auto (RBC) [Mass/Vol]on 10-02-2021 MCHC (RBC) [Mass/Vol] 33.2 g/dL 32-36 [facility] Work Phone: No Panel Informationon 10-02 Estimated GFR (MDRD) Amer 143 mL/min >60 [facility] Work Phone: Comment on above: GFR Calc Estimated GFR (MDRD) Non-Af Amer 118 mL/min >60 [facility] Work Phone: Comment on above: Non- GFR Calc Total Iron Binding Capacity 285 ug/dL 250-450 [facility] Work Phone: Platelets bldon 10-02-2021 Platelets (Bld) [#/Vol] 231 10*3/uL 150-450 [facility] Work Phone: [phone] Serum or plasma albumin ash urement (mass/volume)on 10-02-2021 Albumin [Mass/Vol] 3.5 g/dL 3.2-5.0 [facility] Work Phone: Serum or plasma albumin/glob ulin mass ratioon 10-02-2021 Albumin/Globulin [Mass ratio] 1.1 {ratio} 0.9-2.4 [facility] Work Phone: [phone] Serum or plasma calcium ash urement (mass/volume)on 10-02-2021 Calcium [Mass/Vol] 8.7 mg/dL 8.5-10.1 [facility] Work Phone: [phone] Serum or plasma cholesterol in HDL measurement (mass/volume)on 10-02-2021 Cholesterol in HDL [Mass/Vol] 57 mg/dL >40 [facility] Work Phone: Comment on above: The drugs N-Acetylcy steine and Metamizole may falsely depress this assay. Reference Range HDL <40 mg/dL Low HDL Cholesterol HDL >or= 60 mg/dL High HDL Cholesterol Serum or plasma cholesterol in VLDL measurement (mass/volume)on 10-02-2021 Cholesterol in VLDL [Mass/Vol] 11 mg/dL 5-40 [facility] Work Phone: [phone] Serum or plasma creatinine m easurement (mass/volume)on 10-02-2021 Creatinine [Mass/Vol] 0.70 mg/dL 0.70-1.30 [facility] Work Phone: Comment on above: The validity of the calculated GFR & GFRAA in patients over 70 years has not been determined. Clinical correlation is essential. Serum or plasma ferritin elham surement (mass/volume)on 10-02-2021 Ferritin [Mass/Vol] 290 ng/mL 26-388 [facility] Work Phone: Serum or plasma iron saturat ion measurement (mass fraction)on 10-02-2021 Iron saturation [Mass fraction] 36.5 % 15.0-55.0 [facility] Work Phone: [phone] Serum or plasma low density lipoprotein (LDL) cholesterol measurement (mass/volume)on 10-02-2021 Cholesterol in LDL [Mass/Vol] 64 mg/dL 0-130 [facility] Work Phone: [phone] Serum or plasma urea nitroge n measurement (mass/volume)on 10-02-2021 Urea nitrogen [Mass/Vol] 22 mg/dL 7-18 [facility] Work Phone: [phone] Thin prep Papanicolaou smear with manual screeningon 10-02-2021 Thin prep Papanicolaou smear with manual screening 29 U/L 15-37 [facility] Work Phone: [phone] Thin prep Papanicolaou smear with manual screening 6 5-15 [facility] Work Phone: Whole blood hemoglobin A1c/t otal hemoglobin ratio (mass fraction)on 10-02-2021 HbA1c (Bld) [Mass fraction] 6.0 % 3.8-5.6 [facility] Work Phone: Comment on above: Normal < 5.7 % Predi abetic 5.7 - 6.4 % Diabetic >or= 6.5 % Please note range changes. Vital Signs Date Time Vital Sign Value Performing Clinician Faci lity 07-23-2024 11:37-0400 Body temperature 98.2 [degF] Dr. Davis Armstrong MD Work Phone: [phone] [place] [address] 07-23-2024 11:37-0400 Diastolic blood pressure 78 mm[Hg] Dr. Davis Armstrong MD Work Phone: [phone] [place] [address] 07-23-2024 11:37-0400 Heart rate 80 /min Dr. Davis Armstrong MD Work Phone: [phone] [place] [address] 07-23-2024 11:37-0400 Respiratory rate 18 /min Dr. Davis Armstrong MD Work Phone: [phone] [place] [address] 07-23-2024 11:37-0400 SaO2% (BldA) [Mass fraction] 97 % Dr. Davis Armstrong MD Work Phone: [facility] 07-23-2024 11:37-0400 Systolic blood pressure 148 mm[Hg] Dr. Davis Armstrong MD Work Phone: [facility] 07-23-2024 07:05-0400 Body height 170.[address] Davis Armstrong MD Work Phone: [facility] 07-23-2024 07:05-0400 Body mass index (BMI) [Ratio] 31.6 kg/m2 Dr. Davis Armstrong MD Work Phone: [facility] 07-23-2024 07:05-0400 Body weight 91.[address] Davis Armstrong MD Work Phone: [phone] [place] [address] 12-27-2022 11:00-0400 Diastolic blood pressure 86 mm[Hg] [facility] 12-27-2022 11:00-0400 Systolic blood pressure 141 mm[Hg] [facility] 12-27-2022 09:36-0400 Heart rate 92 /min [facility] 12-27-2022 09:36-0400 Respiratory rate 26 /min [facility] 12-27-2022 09:36-0400 SaO2% (BldA) [Mass fraction] 99 % [facility] 12-27-2022 07:36-0400 Body height 170.18 cm [facility] 12-27-2022 07:36-0400 Body mass index (BMI) [Ratio] 31.3 kg/m2 [facility] 12-27-2022 07:36-0400 Body temperature 97.2 [degF] [facility] 12-27-2022 07:36-0400 Body weight 90.71 kg [facility] 01-18-2022 17:03-0400 Body height 170.18 cm [facility] 01-18-2022 17:03-0400 Body mass index (BMI) [Ratio] 30.5 kg/m2 [facility] 01-18-2022 17:03-0400 Body temperature 98.7 [degF] [facility] 01-18-2022 17:03-0400 Body weight 88.45 kg [facility] 01-18-2022 17:03-0400 Diastolic blood pressure 96 mm[Hg] [facility] 01-18-2022 17:03-0400 Heart rate 113 /min [facility] 01-18-2022 17:03-0400 Respiratory rate 18 /min [facility] 01-18-2022 17:03-0400 SaO2% (BldA) [Mass fraction] 94 % [facility] 01-18-2022 17:03-0400 Systolic blood pressure 145 mm[Hg] [facility] 01-18-2022 12:06-0400 Body temperature 98.2 [degF] [facility] 01-18-2022 12:06-0400 Diastolic blood pressure 80 mm[Hg] [facility] 01-18-2022 12:06-0400 Heart rate 77 /min [facility] 01-18-2022 12:06-0400 Respiratory rate 18 /min [facility] 01-18-2022 12:06-0400 SaO2% (BldA) [Mass fraction] 97 % [facility] 01-18-2022 12:06-0400 Systolic blood pressure 142 mm[Hg] [facility] 01-16-2022 18:35-0400 Body mass index (BMI) [Ratio] 30.4 kg/m2 [facility] 01-16-2022 18:35-0400 Body weight 88.3 kg [facility] 01-16-2022 10:27-0400 Body temperature 97 [degF] [facility] 01-16-2022 10:27-0400 Diastolic blood pressure 98 mm[Hg] [facility] 01-16-2022 10:27-0400 Heart rate 51 /min [facility] 01-16-2022 10:27-0400 Respiratory rate 18 /min [facility] 01-16-2022 10:27-0400 SaO2% (BldA) [Mass fraction] 98 % [facility] 01-16-2022 10:27-0400 Systolic blood pressure 142 mm[Hg] [facility] 01-16-2022 06:54-0400 Body height 170.18 cm [facility] Work Phone: 01-16-2022 06:54-0400 Body mass index (BMI) [Ratio] 30.6 kg/m2 [facility] 01-16-2022 06:54-0400 Body weight 88.72 kg [facility] 12-19-2021 13:58-0400 Body temperature 97.2 [degF] [facility] 12-19-2021 13:58-0400 Diastolic blood pressure 82 mm[Hg] [facility] 12-19-2021 13:58-0400 Heart rate 76 /min [facility] 12-19-2021 13:58-0400 Respiratory rate 16 /min [facility] 12-19-2021 13:58-0400 SaO2% (BldA) [Mass fraction] 97 % [facility] 12-19-2021 13:58-0400 Systolic blood pressure 148 mm[Hg] [facility] 12-19-2021 09:10-0400 Body height 170.18 cm [facility] Work Phone: 12-19-2021 09:10-0400 Body mass index (BMI) [Ratio] 29.9 kg/m2 [facility] 12-19-2021 09:10-0400 Body weight 86.63 kg [facility] 12-02-2021 23:08-0400 Diastolic blood pressure 82 mm[Hg] [facility] Work Phone: 12-02-2021 23:08-0400 Heart rate 72 /min [facility] Work Phone: 12-02-2021 23:08-0400 Respiratory rate 18 /min [facility] Work Phone: 12-02-2021 23:08-0400 SaO2% (BldA) [Mass fraction] 100 % [facility] Work Phone: 12-02-2021 23:08-0400 Systolic blood pressure 136 mm[Hg] [facility] Work Phone: 12-02-2021 18:27-0400 Body height 170.18 cm [facility] Work Phone: 12-02-2021 18:27-0400 Body mass index (BMI) [Ratio] 29.7 kg/m2 [facility] Work Phone: 12-02-2021 18:27-0400 Body temperature 97.9 [degF] [facility] Work Phone: 12-02-2021 18:27-0400 Body weight 86.18 kg [facility] Work Phone: 08-25-2021 07:28-0400 Body mass index (BMI) [Ratio] 29.7 kg/m2 [facility] Work Phone: 08-25-2021 07:28-0400 Body temperature 98.1 [degF] [facility] Work Phone: 08-25-2021 07:28-0400 Body weight 86.18 kg [facility] Work Phone: 08-25-2021 07:28-0400 Diastolic blood pressure 93 mm[Hg] [facility] Work Phone: 08-25-2021 07:28-0400 Heart rate 73 /min [facility] Work Phone: 08-25-2021 07:28-0400 Respiratory rate 14 /min [facility] Work Phone: 08-25-2021 07:28-0400 SaO2% (BldA) [Mass fraction] 99 % [facility] Work Phone: 08-25-2021 07:28-0400 Systolic blood pressure 176 mm[Hg] [facility] Work Phone: Encounters Encounter Date Encounter Type Care Provider Facility Start: 07-23-2024 End: 07-23-2024 Emergency department patient visit Dr. Davis Armstrong MD Work Phone: -Emergency Department Work Phone: Start: 05-26-2024 End: 05-26-[address] Davis Armstrong MD Work Phone: [facility] Work Phone: Start: 05-26-2024 End: 05-26-[address] Davis Armstrong MD -Laboratory, [facility] Start: 05-26-2024 End: 05-26-2024 ambulatory Davis Armstrong Facility:[facility] Start: 05-19-2024 End: 05-19-[address] Davis Armstrong MD Work Phone: [facility] Work Phone: Start: 05-19-2024 End: 05-19-[address] Davis Armstrong MD -Laboratory, [facility] Start: 05-19-2024 End: 05-19-2024 ambulatory Davis Armstrong Facility:[facility] Start: 01-14-2024 End: 01-14-2024 ambulatory Davis Armstrong Facility:[facility] Start: 09-10-2023 End: 09-10-2023 ambulatory Davis Armstrong Facility:[facility] Start: 05-08-2023 End: 05-08-2023 ambulatory [facility] Work Phone: Start: 05-08-2023 End: 05-08-2023 Patient encounter procedure [facility]-Laboratory Work Phone: Start: 01-08-2023 End: 01-08-2023 ambulatory [facility] Work Phone: Start: 01-08-2023 End: 01-08-2023 [facility] Start: 12-27-2022 End: 12-27-2022 Emergency department patient visit [facility]-Emergency Department Work Phone: Start: 10-08-2022 End: 10-08-2022 [facility] Start: 04-08-2022 End: 04-08-2022 ambulatory [facility] Work Phone: Start: 04-08-2022 End: 04-08-2022 Patient encounter procedure [facility]-Laboratory, Specimen Start: 03-28-2022 End: 03-28-2022 ambulatory [facility] Work Phone: Start: 03-28-2022 End: 03-28-2022 Patient encounter procedure [facility]-Laboratory Start: 01-18-2022 End: 01-18-2022 Emergency department patient visit [facility]-Emergency Department Start: 01-16-2022 End: 01-18-2022 Evaluation and management of inpatient [facility]-Medical Surgical 3 Start: 01-16-2022 End: 01-16-2022 Admission to same day surgery center [facility]Surgical Day Care Start: 01-16-2022 End: 01-16-2022 ambulatory [facility] Work Phone: Start: 12-19-2021 End: 12-19-2021 Admission to same day surgery center [facility] Start: 12-19-2021 End: 12-19-2021 ambulatory [facility] Work Phone: Start: 12-18-2021 End: 12-18-2021 ambulatory [facility] Work Phone: Start: 12-18-2021 End: 12-18-2021 Patient encounter procedure [facility] Start: 12-02-2021 End: 12-02-2021 [facility] Start: 10-02-2021 End: 10-02-2021 Patient encounter procedure [facility] Start: 08-25-2021 End: 08-25-2021 Emergency department patient visit [facility]-Emergency Department Procedures Date Procedure Procedure Detail [...] identified in Urine by Culture Urine Culture [facility] Start: 07-23-2024 [facility] Start: 07-23-2024 End: 07-23-2024 [facility] Start: 12-27-2022 [facility] Start: 12-27-2022 [facility] Start: 01-18-2022 Referral to service [facility] Start: 01-18-2022 Patient discharge [facility] Start: 01-17-2022 Incentive spirometry [facility] Start: 01-16-2022 [facility] Start: 01-16-2022 Admission procedure [facility] Start: 01-16-2022 Following clinical pathway protocol [facility] Start: 01-16-2022 Anes transurethral resection of bladder tumor ANESTH BLADDER TUMOR SURG [facility] Start: 01-16-2022 Cystourethroscopy w/dest &/rmvl tumor large CYSTOSCOPY AND TREATMENT [facility] Start: 01-16-2022 Ambulation without limitation [facility] Start: 01-16-2022 Medication education [facility] Start: 01-16-2022 Patient discharge [facility] Start: 01-16-2022 Taking patient vital signs [facility] Start: 01-16-2022 End: 01-17-2022 [facility] Start: 12-19-2021 Anes lithotrp xtrcorp shock wave w/o water bath ANESTH KIDNEY STONE DESTRUCT [facility] Start: 12-19-2021 Cysto w/insert ureteral stent CYSTOSCOPY AND TREATMENT [facility] Start: 12-19-2021 Lithotripsy xtrcorp shock wave FRAGMENTING OF KIDNEY STONE [facility] Start: 12-19-2021 Patient discharge [facility] Start: 12-19-2021 Ambulation without limitation [facility] Start: 12-19-2021 Medication education [facility] Start: 12-19-2021 Taking patient vital signs [facility] Start: 12-19-2021 [facility] Start: 08-25-2021 Simple repair scalp/neck/ax/genit/trunk 2.5cm/< RPR S/N/AX/GEN/TRNK 2.5CM/< [facility] Work Phone: Electrocardiographic procedure [facility] Work Phone: Electrocardiographic procedure [facility] Patient Education [facility] Work Phone: Patient referral [facility] Work Phone: Troponin T.cardiac [Mass/volume] in Serum or Plasma by High sensitivity method [facility] Urine culture [facility] Immunizations Immunization Date Immunization Notes Care Provider Fa chaz 08-25-2021 tetanus toxoid, redu frankie diphtheria toxoid, and acellular pertussis vaccine, adsorbed [facility] Payers Date Payer Category Payer Self-pay [id number] 2021 Medicare [id number] Unknown [employer] [id number] Unknown [id number] 2.16.8 [id number] Unknown [id number] 2.16.8 [id number] Unknown [id number] 2.16.8 [id number] Unknown [id number] 2.16.8 [id number] Unknown [id number] 2.16.8 [id number] Social History Date Type Detail Facility Start: 12-02-2021 End: 12-27-2022 Tobacco smoking status NHIS Unknown if ever smoked [facility] Start: 12-18-2018 Non-smoker [facility] Start: 1950 Sex Assigned At Male [facility] Start: 12-27-2022 End: 07-23-2024 Tobacco smoking status NHIS Never smoked tobacco (finding) [facility] Start: 05-31-2024 End: 06-02-2024 Sex Male (finding) [facility] Medical Equipment Procedure Code Equipment Code Equipment Origin al Text Equipment Identifier Dates Lithotripsy, [id number] ([id number]) Polymeric uret eral stent [id number] FDA Start: 12-19-2021 Goals Date Patient Goal Desired Activity /State Functional Status Date Assessment Result Facility 01-18-2022 Functional status Activity Ability Indepe ndent [facility] Work Phone: 01-17-2022 Functional status Ambulates [facility] Work Phone: Mental Status Date Assessment Result Facility 07-23-2024 Cognitive function Level Of Cons ciousness Awake;Alert;Appropriate;Follow s Commands [facility] Work Phone: 12-27-2022 Cognitive function Level Of Cons ciousness Awake;Alert;Appropriate;Follow s Commands [facility] Work Phone: 01-18-2022 Cognitive function Voice/Name [facility] Work Phone: 01-16-2022 Cognitive function Level Of Cons ciousness Awake;Alert;Appropriate;Follow s Commands [facility] Work Phone: 12-19-2021 Cognitive function Touch/Shaking [facility] Work Phone: 12-19-2021 Cognitive function Patient Orien tation Person;Place;Time [facility] Work Phone: Radiology Diagnostic study note 07-23-2024 Note Date & Type Note Facility 07-23-2024 Radiology Diagnostic study note [facility] Imaging Services [address] [place] [address] Chest PA and Lateral MR#: [id number] Acct: [id number] Name: YANET CORRIGAN Rep #: [id number] : 1950 M 74 From: Jaguar Ontiveros MD PCP: Dr. Davis Armstrong MD Status: RE G ER Study:Chest PA and Lateral Date of Exam: 07/23/24 Exam# [id number] Ordering Dr: Osmany Evans DO PROCEDURE: CHEST PA AND LATERAL 07/23/2024 REASON FOR EXAM: COUGH TECHNIQUE: Frontal and lateral views of the chest. COMPARISON: 12/27/2022 FINDINGS: The lungs appear clear. Pulmonary vascularity appears within limits. No pleural effusion. The cardiac and mediastinal contours appear within limits. RAD/Chest PA and Lateral IMPRESSION: No evidence of acute disease. Reading Location: [facility] CC: Dr. Osmany Evans DO; Dr. Davis Armstrong MD ~ Solidworks Designer: Signed [facility] Evaluation note Note Date & Type Note Facility Evaluation note No assessment information availa ble [facility] Work Phone: Hospital Discharge instructions Note Date & Type Note Facility Hospital Discharge instructions Ambulatory [id number] Lead EKG [[facility]] Time Frame: 01/16/22, Location: None Selected Additional Instructions Implant Used?: No [facility] Work Phone: Reason for referral (narrative) Note Date & Type Note Facility Reason for referral (narrative) No reason for referral information available [facility] Work Phone: Chief Complaint and Reason [...] Yes December 02, 2021 6:54pm Power of Junior Manufacturing Engineer No November 6:54pm Advance Directive Response Recorded Date/ Time Living Will No December 12, 2021 10:17am Power of Junior Manufacturing Engineer No November 10:17am Advance Directive Response Recorded Date/ Time Living Will No January 09 2:13pm Power of Junior Manufacturing Engineer No January 09, 2022 2:13pm Advance Directive Response Recorded Date/ Time Living Will Yes January 18 4:22pm Power of Junior Manufacturing Engineer No January 18, 2022 4:22pm Advance Directive Response Recorded Date/ Time Living Will Yes December 27 7:46am Power of Junior Manufacturing Engineer No December 27, 2022 7:46am Advance Directive Response Recorded Date/ Time Living Will Yes December 27 6:46am Power of Junior Manufacturing Engineer No December 27, 2022 6:46am Advance Directive Response Recorded Date/ Time Do you have a Healthcare Power of Junior Manufacturing Engineer? No July 23, 2024 7:21am Summary Purpose [...] section and content) DATE CREATED AUTHOR 07/30/2024 [facility] FOR RECORDS PERTAINING TO PATIENTS WHO [...] BE BASED ON THE PRIMARY CLINICAL RECORDS. [employer] [facility]. provides no warranty or guarantee of the accuracy or completeness of information in this document.
--- NOTE | 2024-09-18 16:45 | PCM.HP.STD ---
HPI - General General Date of Admission: 09/18/24 Date of Service: 09/18/24 Chief Complaint: Right knee pain HPI Narrative YANET CORRIGAN, is a 74-year-old male history of hypertension, diabetes, BPH and hyperlipidemia presented to [facility] ED 09/18/2024 with right knee redness and swelling for the past 3 to 4 days with no preceding trauma noted. Has had no fever that he knows of. He did injure the knee in June when he was hit by a piece of wood he cut off with a chainsaw and was not evaluated for it at that time but has not had any recent trauma. In the ED temperature 98.8 with a repeat of 99.2, heart rate initially 131 with blood pressure 164/85. Respiratory rate 16 pulse ox 97% on room air. White blood cell count 12.6 with a hemoglobin of 12.8. BMP with a BUN of 16 and creatinine 0.76. Knee x-ray with moderate degenerative changes and soft tissue swelling. Exam in the ED consistent with cellulitis so patient started on IV antibiotics. He did incise area to lateral aspect of knee in the ED and it was clear fluid with no pus and no joint involvement and had preserved range of motion so was felt superficial cellulitis. And hospitalist contacted for admission. Patient evaluated at bedside. Patient reports history as above with the right knee pain and swelling for the past 3 to 4 days, has been working a lot on his knees but has not necessarily fallen or had trauma. Has intermittently had some swelling in both of his legs right leg greater than left and notes ankles are swollen today again right leg predominantly. Does not know if he had any fevers at home [facility] Medical History Bladder cancer Kidney stones GERD (gastroesophageal reflux disease) Hypertension Wears dentures Wears glasses Diabetes Arthritis High cholesterol Back pain Gastric reflux Non-smoker Chronic cough Hypertension Kidney stone Home Medications ?Medication ?Instructions ?Recorded ?Last Taken ?Type atorvastatin 40 mg tablet 40 mg PO QPM CHOLESTEROL 01/16/22 09/17/24 History lisinopril 20 mg tablet 20 mg PO DAILY #30 tabs 12/27/22 09/18/24 Rx amlodipine 10 mg tablet 10 mg PO DAILY 09/18/24 09/18/24 History metformin 500 mg tablet,extended 500 mg PO BID 09/18/24 09/18/24 History release 24 hr tamsulosin 0.4 mg capsule 0.4 mg PO QHS 09/18/24 09/17/24 History Allergy/AdvReac Type Severity Reaction Status Date / Time Penicillins Allergy Other Verified 09/18/24 14:10 Surgical History Hx of hernia repair Hx of cystoscopy Social History Smoking Status: Never smoker ROS ROS Narrative General: He is unsure if he has had any fevers at home, does have fever in the ED HENT: Denies headache, denies stuffy nose, denies sore throat EYES: Denies changes in vision Resp: Denies cough, denies shortness of breath Cardiac: Denies chest pain GI: Denies abdominal pain, denies changes in bowel, denies nausea/vomiting : Denies changes in urination Extremity: Some swelling primarily in right lower extremity greater than left intermittently but will go down overnight and legs will be normal in the morning MSK: Denies weakness Neuro: Denies any numbness/tingling Heme: No bleeding noted Skin: Erythema around right knee extending up leg Psychiatric: No complaints voiced Vital Signs Vital Signs Vital Signs: 09/18/24 14:10 09/18/24 15:15 09/18/24 16:32 Temperature 98.8 F 99.2 F H 101.5 F H Temperature Source Oral Temporal Axillary Pulse Rate 131 H 107 H 101 H Respiratory Rate 16 18 18 Blood Pressure 164/85 H 132/67 H 123/75 H Blood Pressure Mean 111 88 91 Pulse Ox 97 93 95 Oxygen Delivery Method Room Air Room Air Room Air Weight Weight: 89.8 kg Body Mass Index (BMI) 31.0 Physical Exam Narrative General: Alert, oriented, no apparent distress HEENT: Atraumatic, normocephalic Eyes: extraocular movements grossly intact Neck: Supple Respiratory: normal respiratory effort Cardiovascular: Does have bilateral lower extremity edema right greater than left, trace on left side and at least 1+ right lower extremity GI: nondistended Extremities: Moving all extremities, is able to move knee, somewhat limited by pain but seems to do better with passive range of motion with knee moving knee Skin: Right knee wrapped as he is post I&D, does have warmth and erythema that also extends on the dubon and up thigh Neuro: No overt focal neurological deficits Psych: Cooperative Results Lab / Micro Data 09/18/24 14:35 09/18/24 14:35 Labs: Laboratory Results - last 24 hr 09/18/24 14:35: WBC 12.6 H, RBC 4.13 L, Hgb 12.8 L, Hct 37.6 L, MCV 91.0, MCH 31.0, MCHC 34.0, RDW Std Deviation 45.1 H, RDW Coeff of Kim 13.3, Plt Count 239, MPV 10.5, Immature Gran % (Auto) 0.500, Neut % (Auto) 86.6 H, Lymph % (Auto) 4.9 L, Shackelford % (Auto) 6.9, Eos % (Auto) 0.8, Baso % (Auto) 0.3, Absolute Neuts (auto) 10.9 H, Absolute Lymphs (auto) 0.61 L, Nucleated RBC % 0, Sodium 136, Potassium 4.1, Chloride 104, Carbon Dioxide 20.7 L, Anion Gap 11, BUN 16, Creatinine 0.76, Estim Creat Clear Calc 87.91, Est GFR (MDRD) Non-Af 95, BUN/Creatinine Ratio 21.6 H, Glucose 104 H, Calcium 8.6 Imaging Radiology Impression Knee X-Ray 09/18/24 14:28 IMPRESSION: Degenerative changes as above. Reading Location: [facility] Assessment & Plan Assessment/Plan (1) Cellulitis of knee, right: PLAN: Plan # Right knee cellulitis -Exam seems consistent with cellulitis with some going above knee and extending below, reports he is already feeling better with improvement in pain and symptoms - Continue cefazolin - Will check blood cultures given patient spiked temp of 101.6 in ED but is vitally stable and only has slight white blood cell count elevation without evidence of endorgan damage or concerns for sepsis - Given the swelling in right lower extremity we will also check lower extremity duplex though lower suspicion that this could be contributing given waxing and waning nature of symptoms #Type 2 diabetes mellitus -Glucose checks and sliding scale insulin - Hold home oral hypoglycemic agent #Chronic BPH with obstruction -Continue home medications #Hypertension - Continue home amlodipine, will hold home lisinopril to allow room for pain control, can add back lisinopril as BP tolerates # Hyperlipidemia -Continue home statin #DVT ppx: Lovenox subcu Kelly Rice MD Charges/Coding Visit Charges Inpatient E&M: 55043 Init Hosp L2
[2024-09-18 16:48] VITALS: BP 142/72; PULSE 104; RESP 18; TEMP 38.7; O2SAT 95
--- OUTSIDE RECORDS SUMMARY | 2024-09-18 16:52 | XMS RPT_ITS | CCD ---
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 Davis [...] Penicillins Allergy to substance 12-19-2021 Other [facility] (1 source) Penicillins Drug allergy (disorder) 07-23-2024 [facility] Repository Medications Current Medications Medication Drug [...] infection level. Enterococcus faecalis Beta Lactamase-Reportable Negative Putnam Count 80,000-100,000 GNR Putnam Count <1000 Gram negative buffy Ampicillin Islt YOLANDA <=2 Ciprofloxacin Islt YOLANDA >=8 R Gentamicin Synergy Susc Islt SYN-R levoFLOXacin Islt YOLANDA >=8 R Linezolid Islt YOLANDA 2 S Nitrofurantoin Islt YOLANDA <=16 S Streptomycin High Pot Susc Islt SYN-S S Tetracycline Islt YOLANDA >=16 R Vancomycin Islt YOLANDA 1 S Normal [facility] Comment on above: Performed By: #### M 100.2200 #### [facility] [address] [place], [address] Absolute lymphocyte countOrd ered By: Osmany Evans on 07-23-2024 Lymphocytes Auto (Unsp spec) [#/Vol] 0.43 10*3/uL Low 0.83-4.51 [facility] Absolute neutrophil countOrd ered By: Osmany Evans on 07-23-2024 Neutrophils (Bld) [#/Vol] 9.3 10*3/uL High 2.0-7.7 [facility] Anion gap in Serum or Plasma Ordered By: Osmany Evans on 07-23-2024 Anion gap [Moles/Vol] 11 mmol/L 5-15 [facility] Automated lymphocyte count a s percentage of total leukocytesOrdered By: Osmany Evans on 07-23-2024 Lymphocytes/100 WBC Auto (Unsp spec) 4.0 % Low 19-41 [facility] BUN/creatinine ratioOrdered By: Osmany Evans on 07-23-2024 Urea nitrogen/Creatinine [Mass ratio] 19.5 mg/mg 10-20 [facility] Basic Metabolic Profile (BMP )on 07-23-2024 BUN/CRE 19.5 RATIO Normal - [facility] Comment on above: Performed By: #### L 500.2500, L100.0100 #### [facility] [address] [place], [address] Calcium [Mass/Vol] 9.1 mg/dL Normal 7.6-11.0 [facility] Comment on above: Performed By: #### L 500.2500, L100.0100 #### [facility] [address] [place], [address] Chloride [Moles/Vol] 102 mmol/L Normal 98-108 [facility] Comment on above: Performed By: #### L 500.2500, L100.0100 #### [facility] [address] [place], [address] CO2 [Moles/Vol] 23.1 mmol/L Normal 21.0-32.0 [facility] Comment on above: Performed By: #### L 500.2500, L100.0100 #### [facility] [address] [place], [address] Creatinine [Mass/Vol] 0.95 mg/dL Normal 0.70-1.20 [facility] Comment on above: Performed By: #### L 500.2500, L100.0100 #### [facility] [address] [place], [address] ECRCL 74.77 ml/min Normal 50-250 [facility] Comment on above: Performed By: #### L 500.2500, L100.0100 #### [facility] [address] [place], [address] GAP 11 Normal 5-15 [facility] Comment on above: Performed By: #### L 500.2500, L100.0100 #### [facility] [address] [place], [address] GFR/1.73 sq M.predicted among non-blacks MDRD (S/P/Bld) [Vol rate/Area] 84 mL/min/{1.73_m2} Normal >60 [facility] Comment on above: Result Comment: mL/m in/1.73m2 CKD-EPI Creatinine Equation (2020) Performed By: #### L 500.2500, L100.0100 #### [facility] [address] [place], [address] Glucose [Mass/Vol] 100 mg/dL High 70-99 [facility] Comment on above: Performed By: #### L 500.2500, L100.0100 #### [facility] [address] [place], [address] Potassium [Moles/Vol] 3.9 mmol/L Normal 3.3-5.1 [facility] Comment on above: Performed By: #### L 500.2500, L100.0100 #### [facility] [address] [place], [address] Sodium [Moles/Vol] 136 mmol/L Normal 133-145 [facility] Comment on above: Performed By: #### L 500.2500, L100.0100 #### [facility] [address] [place], [address] Urea nitrogen [Mass/Vol] 19 mg/dL Normal 4-19 [facility] Comment on above: Performed By: #### L 500.2500, L100.0100 #### [facility] [address] [place], [address] Basophil percentageOrdered B y: Osmany Evans on 07-23-2024 Basophils/100 WBC (Bld) 0.4 % 0-1 [facility] Bilirubin Test strip Ql (U)O rdered By: Osmany Evans on 07-23-2024 Bilirubin Ql (U) Negative Negative [facility] CBC W/Diff, Automatedon Absolute Lymph 0.43 X10 3/uL Low 0.83-4.51 [facility] Comment on above: Performed By: #### L 500.2500, L100.0100 #### [facility] [address] [place], [address] Absolute Neut 9.3 X10 3/uL High 2.0-7.7 [facility] Comment on above: Performed By: #### L 500.2500, L100.0100 #### [facility] [address] [place], [address] Basophils/100 WBC (Bld) 0.4 % Normal 0-1 [facility] Comment on above: Performed By: #### L 500.2500, L100.0100 #### [facility] [address] [place], [address] Eosinophils/100 WBC (Bld) 0.2 % Normal 0-5 [facility] Comment on above: Performed By: #### L 500.2500, L100.0100 #### [facility] [address] [place], [address] Erythrocyte distribution width (RBC) [Ratio] 13.3 % Normal 11.6-14.6 [facility] Comment on above: Performed By: #### L 500.2500, L100.0100 #### [facility] [address] [place], [address] Hematocrit (Bld) [Volume fraction] 40.1 % Normal 40-54 [facility] Comment on above: Performed By: #### L 500.2500, L100.0100 #### [facility] [address] [place], [address] Hemoglobin (Bld) [Mass/Vol] 13.8 g/dL Normal 13.0-16.5 [facility] Comment on above: Performed By: #### L 500.2500, L100.0100 #### [facility] [address] [place], [address] IG% 0.600 Normal 0.0-0.9 [facility] Comment on above: Result Comment: IG% - Immature Granulocytes (promyelocytes, myelocytes and metamyelocytes) > 1% indicates that a LEFT SHIFT is Present. Performed By: #### L 500.2500, L100.0100 #### [facility] [address] [place], [address] Lymphocytes/100 WBC (Bld) 4.0 % Low 19-41 [facility] Comment on above: Performed By: #### L 500.2500, L100.0100 #### [facility] [address] [place], [address] MCH (RBC) [Entitic mass] 32.0 pg Normal 27.0-32.0 [facility] Comment on above: Performed By: #### L 500.2500, L100.0100 #### [facility] [address] [place], [address] MCHC (RBC) [Mass/Vol] 34.4 g/dL Normal 32-36 [facility] Comment on above: Performed By: #### L 500.2500, L100.0100 #### [facility] [address] [place], [address] MCV (RBC) [Entitic vol] 93.0 fL Normal 80-94 [facility] Comment on above: Performed By: #### L 500.2500, L100.0100 #### [facility] [address] [place], [address] Monocytes/100 WBC (Bld) 8.2 % Normal 0-10 [facility] Comment on above: Performed By: #### L 500.2500, L100.0100 #### [facility] [address] [place], [address] Neutrophils/100 WBC (Bld) 86.6 % High 47-70 [facility] Comment on above: Performed By: #### L 500.2500, L100.0100 #### [facility] [address] [place], [address] Nucleated RBC (Bld) [#/Vol] 0 10*3/uL Normal 0-5 [facility] Comment on above: Performed By: #### L 500.2500, L100.0100 #### [facility] [address] [place], [address] Platelet mean volume (Bld) [Entitic vol] 10.4 fL Normal 6.2-12.0 [facility] Comment on above: Performed By: #### L 500.2500, L100.0100 #### [facility] [address] [place], [address] Platelets (Bld) [#/Vol] 224 10*3/uL Normal 150-450 [facility] Comment on above: Performed By: #### L 500.2500, L100.0100 #### [facility] [address] [place], [address] RBC (Bld) [#/Vol] 4.31 10*6/uL Low 4.6-6.2 [facility] Comment on above: Performed By: #### L 500.2500, L100.0100 #### [facility] [address] [place], [address] RDW SD 45.2 fl High 35.1-43.9 [facility] Comment on above: Performed By: #### L 500.2500, L100.0100 #### [facility] [address] [place], [address] WBC (Bld) [#/Vol] 10.7 10*3/uL Normal 4.4-11.0 [facility] Comment on above: Performed By: #### L 500.2500, L100.0100 #### [facility] [address] [place], [address] Carbon dioxide, total [Moles /volume] in Central venous bloodOrdered By: Osmany Evans on 07-23-2024 CO2 [Moles/Vol] 23.1 mmol/L 21.0-32.0 [facility] Chest PA and Lateralon 07-23 Chest PA and Lateral [facility] Imaging Services [address] [place] [address] Chest PA and Lateral MR#: [id number] Acct: [id number] Name: YANET CORRIGAN Rep #: [id number] : 1950 M 74 From: Naveen Ontiveros MD PCP: Dr. Davis Armstrong MD Status: [facility] ER Study: Chest PA and Lateral Date of Exam: 07/23/24 Exam# [id number] Ordering Dr: Osmany Evans DO PROCEDURE: CHEST [...] Osmany Evans DO; Dr. Davis Armstrong MD Commissioner [employer] Of Resources: Signed Normal [facility] Chloride assayOrdered By: Mark Evans on 07-23-2024 Chloride [Moles/Vol] 102 mmol/L 98-108 [facility] Emergency Department Summary on 07-23-2024 Emergency Department Summary [facility] Medical Records Department [address] [place] [address] Emergency Department Summary 07/23/24 MR#: [id number] Acct: [id number] Name: YANET CORRIGAN Rep #: [id number] : 1950 74 From: Osmany Evans DO PCP: Dr. Davis Armstrong MD Status:[facility] ER Location: ED HPI History of Present [...] bronchitis (more content not included)... Normal [facility] Eosinophil percentageOrdered By: Osmany Evans on 07-23-2024 Eosinophils/100 WBC (Bld) 0.2 % 0-5 [facility] Erythrocyte distribution wid th ratioOrdered By: Osmany Evans on 07-23-2024 Erythrocyte distribution width (RBC) [Ratio] 13.3 % 11.6-14.6 [facility] Erythrocyte distribution wid th standard deviationOrdered By: Osmany Evans on 07-23-2024 Erythrocyte distribution width (RBC) [Ratio] 45.2 fl High 35.1-43.9 [facility] Glomerular filtration rate ( GFR) estimation/1.73 sq m using serum, plasma, or whole bOrdered By: Osmany Evans on 07-23-2024 GFR/1.73 sq M.predicted among non-blacks MDRD (S/P/Bld) [Vol rate/Area] 84 mL/min/{1.73_m2} >60 [facility] Comment on above: mL/min/1.73m2 CKD-EP I Creatinine Equation (2020) Hematocrit Auto (Bld) [Volum e fraction]Ordered By: Osmany Evans on 07-23-2024 Hematocrit (Bld) [Volume fraction] 40.1 % 40-54 [facility] Hemoglobin measurementOrdere d By: Osmany Evans on 07-23-2024 Hemoglobin (Bld) [Mass/Vol] 13.8 g/dL 13.0-16.5 [facility] Immature granulocytes/100 WB C Auto (Bld)Ordered By: Osmany Evans on 07-23-2024 Immature granulocytes/100 WBC (Bld) 0.600 % 0.0-0.9 [facility] Comment on above: IG% - Immature Granu locytes (promyelocytes, myelocytes and metamyelocytes) > 1% indicates that a LEFT SHIFT is Present. Influenza virus A and B and SARS-CoV-2 (COVID-19) and Respiratory syncytial virus RNAOrdered By: Osmany Evans on 07-23-2024 SARS-CoV-2 (COVID-19) RNA AMELIA+probe Ql (Unsp spec) [facility] Ketones Test strip Ql (U)Ord ered By: Osmany Evans on 07-23-2024 Ketones Ql (U) 5 mg/dl High Negative [facility] L499.0042on 07-23-2024 Trop T High Sen 33 ng/L High <=22 [facility] Comment on above: Performed By: #### L 500.2500, L100.0100 #### [facility] [address] [place] [address]. [place], [address] L499.0043on 05-09-2025 Trop T High Sen Normal <=22 [facility] Comment on above: Result Comment: LUIZ ENT DISCHARGED Performed By: #### L 499.0043 #### [facility] [address] [place], [address] L501.4021on 07-23-2024 Trop T High Sen 36 ng/L High <=22 [facility] Comment on above: Performed By: #### L 501.4021 ####[facility] [address] [place], [address] M100.678on 07-23-2024 M100.678 Pending SARS-CoV-2 (COVID 19) Negative INFLUENZA A Negative INFLUENZA B Negative RSV PCR Negative Normal [facility] Comment on above: Performed By: #### L 500.2500, L100.0100 #### [facility] [address] [place], [address] MCV (mean corpuscular volume ) determinationOrdered By: Osmany Evans on 07-23-2024 MCV (RBC) [Entitic vol] 93.0 fL 80-94 [facility] Mean corpuscular hemoglobin (MCH) determinationOrdered By: Osmany Evans on 07-23-2024 MCH (RBC) [Entitic mass] 32.0 pg 27.0-32.0 [facility] Mean corpuscular hemoglobin concentration (MCHC) determinationOrdered By: Osmany Evans on 07-23-2024 MCHC (RBC) [Mass/Vol] 34.4 g/dL 32-36 [facility] Mean platelet volume determi nationOrdered By: Osmany Evans on 07-23-2024 Platelet mean volume (Bld) [Entitic vol] 10.4 fL 6.2-12.0 [facility] Microscopic analysis of urin e for red blood cells (RBC)Ordered By: Osmany Evans on 07-23-2024 Microscopic analysis of urine for red blood cells (RBC) 5-10 SEEN /hpf 0-5 [facility] Monocyte percentageOrdered B y: Osmany Evans on 07-23-2024 Monocytes/100 WBC (Bld) 8.2 % 0-10 [facility] Mucus LM Ql (Urine sed)Order ed By: Osmany Evans on 07-23-2024 Mucus Ql (Urine sed) 0 SEEN /hpf [facility] Neutrophil percentageOrdered By: Osmany Evans on 07-23-2024 Neutrophils/100 WBC (Bld) 86.6 % High 47-70 [facility] Nitrite Test strip Ql (U)Ord ered By: Osmany Evans on 07-23-2024 Nitrite Ql (U) Negative Negative [facility] Nucleated red blood cell per centageOrdered By: Osmany Evans on 07-23-2024 Nucleated RBC/100 WBC (Bld) [Ratio] 0 % 0-5 [facility] Platelet countOrdered By: Mark Evans on 07-23-2024 Platelets (Bld) [#/Vol] 224 10*3/uL 150-450 [facility] Potassium measurement (mass/ volume)Ordered By: Osmany Evans on 07-23-2024 Potassium (Unsp spec) [Mass/Vol] 3.9 mmol/L 3.3-5.1 [facility] Protein Test strip Ql (U)Ord ered By: Osmany Evans on 07-23-2024 Protein Ql (U) 100 mg/dl High Negative [facility] RBC Auto (Bld) [#/Vol]Ordere d By: Osmany Evans on 07-23-2024 RBC (Bld) [#/Vol] 4.31 10*6/uL Low 4.6-6.2 [facility] Serum creatinine measurement (mass/volume)Ordered By: Osmany Evans on 07-23-2024 Creatinine [Mass/Vol] 0.95 mg/dL 0.70-1.20 [facility] Serum glucose measurement (m ass/volume)Ordered By: Osmany Evans on 07-23-2024 Glucose [Mass/Vol] 100 mg/dL High 70-99 [facility] Serum or plasma calcium ash urement (mass/volume)Ordered By: Osmany Evans on 07-23-2024 Calcium [Mass/Vol] 9.1 mg/dL 7.6-11.0 [facility] Serum or plasma urea nitroge n measurement (mass/volume)Ordered By: Osmany Evans on 07-23-2024 Urea nitrogen [Mass/Vol] 19 mg/dL 4-19 [facility] Sodium levelOrdered By: Osmany Evans on 07-23-2024 Sodium [Moles/Vol] 136 mmol/L 133-145 [facility] Squamous epithelial cells de tection in urine sediment by light microscopyOrdered By: Osmany Evans on 07-23-2024 Epithelial cells.squamous LM Ql (Urine sed) 0 SEEN /hpf 0-5 [facility] Troponin T.cardiac [Mass/vol ume] in Serum or Plasma by High sensitivity methodOrdered By: Osmany Evans on 07-23-2024 Troponin T.cardiac High sensitivity method [Mass/Vol] 33 ng/L High <22 [facility] Troponin T.cardiac High sensitivity method [Mass/Vol] 36 ng/L High <22 [facility] Urinalysis, Completeon 07-23 BACTERIA 1+ /hpf Normal None Seen [facility] Comment on above: Order Comment: CLEAN CATCH Performed By: #### L 500.2500, L100.0100 #### [facility] [address] [place], [address] RBC 5-10 SEEN Normal [address] Comment on above: Order Comment: CLEAN CATCH Performed By: #### L 500.2500, L100.0100 #### [facility] [address] [place], [address] WBC 10-25 SEEN Normal [address] [place] [address] Comment on above: Order Comment: CLEAN CATCH Performed By: #### L 500.2500, L100.0100 #### [facility] [address] [place], [address] EPI,SQUAMOUS 0 SEEN Normal 0-5 [facility] Comment on above: Order Comment: CLEAN CATCH Performed By: #### L 500.2500, L100.0100 #### [facility] [address] [place], [address] Mucus Ql (Urine sed) 0 SEEN Normal [facility] Comment on above: Order Comment: CLEAN CATCH Performed By: #### L 500.2500, L100.0100 #### [facility] [place], [address] Urine clarityOrdered By: Olga Evans on 07-23-2024 Clarity (U) Clear Clear [facility] Urine color determinationOrd ered By: Osmany Evans on 07-23-2024 Color (U) Yellow Yellow [facility] Urine glucose detectionOrder ed By: Osmany Evans on 07-23-2024 Glucose Ql (U) Normal mg/dl Normal [facility] Urine leukocyte esterase det ection by dipstickOrdered By: Osmany Evans on 07-23-2024 Leukocyte esterase Test strip Ql (U) 25 /ul High Negative [facility] Urine pHOrdered By: Osmany kerns on 07-23-2024 pH (U) 6.5 [pH] 5.0 - 8.0 [facility] Urine sediment bacteria coun t by microscopy (number/high power field)Ordered By: Osmany Evans on 07-23-2024 Bacteria LM.HPF (Urine sed) [#/Area] 1 /[HPF] None Seen [facility] Urine specific gravity measu rementOrdered By: Osmany Evans on 07-23-2024 Specific gravity (U) [Rel density] 1.010 1.002-1.030 [facility] Urine urobilinogen measureme ntOrdered By: Osmany Evans on 07-23-2024 Urobilinogen Ql (U) 1 mg/dl High Normal [facility] White blood cell (WBC) count Ordered By: Osmany Evans on 07-23-2024 WBC (Bld) [#/Vol] 10.7 10*3/uL 4.4-11.0 [facility] White blood cell countOrdere d By: Osmany Evans on 07-23-2024 White blood cell count 10-25 SEEN /hpf 0-5 [facility] Calculated total iron bindin g capacityOrdered By: Davis Armstrong on 05-26-2024 Total Iron Binding Capacity 299 ug/dL 250-450 [facility] Ferritinon 05-26-2024 Ferritin [Mass/Vol] 273 ng/mL Normal 37-417 [facility] Comment on above: Performed By: #### L 500.2500, L100.0100 #### [facility] [address] [place], [address] Iron (Unsp spec) [Mass/Mass] Ordered By: Davis Armstrong on 05-26-2024 Iron [Mass/Vol] 112 ug/dL 65-175 [facility] Iron measurement (mass/mass) Ordered By: Davis Armstrong on 05-26-2024 Iron (Unsp spec) [Mass/Mass] 112 ug/dL 65-175 [facility] Iron saturation [Mass fracti on]Ordered By: Davis Armstrong on 05-26-2024 Iron Saturation 37.0 % 9-55 [facility] Iron+Iron Binding Capacityon 05-26-2024 Iron [Mass/Vol] 112 ug/dL Normal 65-175 [facility] Comment on above: Performed By: #### L 500.2500, L100.0100 #### [facility] [address] [place], [address] IRON SATURATION 37.0 Normal 9-55 [facility] Comment on above: Performed By: #### L 500.2500, L100.0100 #### [facility] [address] [place], [address] TIBC 299 ug/dL Normal 250-450 [facility] Comment on above: Performed By: #### L 500.2500, L100.0100 #### [facility] [address] [place], [address] UIBC 187 ug/dL Low 228-428 [facility] Comment on above: Performed By: #### L 500.2500, L100.0100 #### [facility] [address] [place], [address] L503.0106on 05-26-2024 Cobalamin (Vitamin B12) [Mass/Vol] 651 pg/mL Normal 180-914 [facility] Comment on above: Performed By: #### L 500.2500, L100.0100 #### [facility] [place], [address] No Panel InformationOrdered By: Davis Armstrong on 05-26-2024 Unsaturated Iron Binding Capacity 187 ug/dL Low 228-428 [facility] Serum or plasma ferritin elham surement (mass/volume)Ordered By: Davis Armstrong on 05-26-2024 Ferritin [Mass/Vol] 273 ng/mL 37-417 [facility] Serum or plasma iron saturat ion measurement (mass fraction)Ordered By: Davis Armstrong on 05-26-2024 Iron saturation [Mass fraction] 37.0 % 9-55 [facility] Vitamin B12 ser/plasOrdered By: Davis Armstrong on 05-26-2024 Cobalamin (Vitamin B12) [Mass/Vol] 651 pg/mL 180-914 [facility] Absolute lymphocyte countOrd ered By: Davis Armstrong on 05-19-2024 Lymphocytes Auto (Unsp spec) [#/Vol] 0.85 10*3/uL 0.83-4.51 [facility] Absolute neutrophil countOrd ered By: Davis Armstrong on 05-19-2024 Neutrophils (Bld) [#/Vol] 4.0 10*3/uL 2.0-7.7 [facility] Albumin DL <= 20 mg/L (U) [M ass/Vol]Ordered By: Davis Armstrong on 05-19-2024 Urine Random Microalbumin 28.6 mg/L NO RANGE EST. [facility] Anion gap in Serum or Plasma Ordered By: Davis Armstrong on 05-19-2024 Anion gap [Moles/Vol] 13 mmol/L 5-15 [facility] Automated lymphocyte count a s percentage of total leukocytesOrdered By: Davis Armstrong on 05-19-2024 Lymphocytes/100 WBC Auto (Unsp spec) 15.5 % Low 19-41 [facility] BUN/creatinine ratioOrdered By: Davis Armstrong on 05-19-2024 Urea nitrogen/Creatinine [Mass ratio] 25.9 mg/mg High 10-20 [facility] Basophil percentageOrdered B y: Davis Armstrong on 05-19-2024 Basophils/100 WBC (Bld) 1.1 % High 0-1 [facility] Bilirubin, totalOrdered By: Davis Armstrong on 05-19-2024 Bilirubin [Mass/Vol] 0.61 mg/dL 0.00-1.30 [facility] CBC W/Diff, Automatedon Absolute Lymph 0.85 X10 3/uL Normal 0.83-4.51 [facility] Comment on above: Order Comment: Order Date: 05/19/24Order Info: [id number] - CBCD Performed By: #### L 100.0100, L501.9985, L501.5200, L501.9520, L500.4050, L500.4100 ####[facility] [address] [place], [address] Absolute Neut 4.0 X10 3/uL Normal 2.0-7.7 [facility] Comment on above: Order Comment: Order Date: 05/19/24Order Info: [id number] - CBCD Performed By: #### L 100.0100, L501.9985, L501.5200, L501.9520, L500.4050, L500.4100 ####[facility] [facility] [address] [place], [address] Basophils/100 WBC (Bld) 1.1 % High 0-1 [facility] Comment on above: Order Comment: Order Date: 05/19/24Order Info: [id number] - CBCD Performed By: #### L 100.0100, L501.9985, L501.5200, L501.9520, L500.4050, L500.4100 ####[facility] [address] [place], [address] Eosinophils/100 WBC (Bld) 2.2 % Normal 0-5 [facility] Comment on above: Order Comment: Order Date: 05/19/24Order Info: [id number] - CBCD Performed By: #### L 100.0100, L501.9985, L501.5200, L501.9520, L500.4050, L500.4100 ####[facility] [address] [place], [address] Erythrocyte distribution width (RBC) [Ratio] 12.7 % Normal 11.6-14.6 [facility] Comment on above: Order Comment: Order Date: 05/19/24Order Info: [id number] - CBCD Performed By: #### L 100.0100, L501.9985, L501.5200, L501.9520, L500.4050, L500.4100 ####[facility] [address] [place], [address]( Hematocrit (Bld) [Volume fraction] 38.2 % Low 40-54 [facility] Comment on above: Order Comment: Order Date: 05/19/24Order Info: [id number] - CBCD Performed By: #### L 100.0100, L501.9985, L501.5200, L501.9520, L500.4050, L500.4100 ####[facility] [address] [place], [address] Hemoglobin (Bld) [Mass/Vol] 12.7 g/dL Low 13.0-16.5 [facility] Comment on above: Order Comment: Order Date: 05/19/24Order Info: [id number] - CBCD Performed By: #### L 100.0100, L501.9985, L501.5200, L501.9520, L500.4050, L500.4100 ####[facility] [address] [facility] [place], [address] IG% 0.400 Normal 0.0-0.9 [facility] Comment on above: Order Comment: Order Date: 05/19/24Order Info: [id number] - CBCD Result Comment: IG% - Immature Granulocytes (promyelocytes, myelocytes and metamyelocytes) > 1% indicates that a LEFT SHIFT is Present. Performed By: #### L 100.0100, L501.9985, L501.5200, L501.9520, L500.4050, L500.4100 ####[facility] [address] [place], [address] Lymphocytes/100 WBC (Bld) 15.5 % Low 19-41 [facility] Comment on above: Order Comment: Order Date: 05/19/24Order Info: [id number] - CBCD Performed By: #### L 100.0100, L501.9985, L501.5200, L501.9520, L500.4050, L500.4100 ####[facility] [address] [place], [address] MCH (RBC) [Entitic mass] 30.8 pg Normal 27.0-32.0 [facility] Comment on above: Order Comment: Order Date: 05/19/24Order Info: [id number] - CBCD Performed By: #### L 100.0100, L501.9985, L501.5200, L501.9520, L500.4050, L500.4100 ####[facility] [address] [place], [address] MCHC (RBC) [Mass/Vol] 33.2 g/dL Normal 32-36 [facility] Comment on above: Order Comment: Order Date: 05/19/24Order Info: [id number] - CBCD Performed By: #### L 100.0100, L501.9985, L501.5200, L501.9520, L500.4050, L500.4100 ####[facility] [address] [place], [address] MCV (RBC) [Entitic vol] 92.7 fL Normal 80-94 [facility] Comment on above: Order Comment: Order Date: 05/19/24Order Info: [id number] - CBCD Performed By: #### L 100.0100, L501.9985, L501.5200, L501.9520, L500.4050, L500.4100 ####[facility] [address] [place], [address] Monocytes/100 WBC (Bld) 7.5 % Normal 0-10 [facility] Comment on above: Order Comment: Order Date: 05/19/24Order Info: [id number] - CBCD Performed By: #### L 100.0100, L501.9985, L501.5200, L501.9520, L500.4050, L500.4100 ####[facility] [address] [place], [address] Neutrophils/100 WBC (Bld) 73.3 % High 47-70 [facility] Comment on above: Order Comment: Order Date: 05/19/24Order Info: [id number] - CBCD Performed By: #### L 100.0100, L501.9985, L501.5200, L501.9520, L500.4050, L500.4100 ####[facility] [address] [place], [address] Nucleated RBC (Bld) [#/Vol] 0 10*3/uL Normal 0-5 [facility] Comment on above: Order Comment: Order Date: 05/19/24Order Info: [id number] - CBCD Performed By: #### L 100.0100, L501.9985, L501.5200, L501.9520, L500.4050, L500.4100 ####[facility] [address] [place], [address] Platelet mean volume (Bld) [Entitic vol] 10.8 fL Normal 6.2-12.0 [facility] Comment on above: Order Comment: Order Date: 05/19/24Order Info: [id number] - CBCD Performed By: #### L 100.0100, L501.9985, L501.5200, L501.9520, L500.4050, L500.4100 ####[facility] [address] [place], [address] Platelets (Bld) [#/Vol] 256 10*3/uL Normal 150-450 [facility] Comment on above: Order Comment: Order Date: 05/19/24Order Info: [id number] - CBCD Performed By: #### L 100.0100, L501.9985, L501.5200, L501.9520, L500.4050, L500.4100 ####[facility] [address] [place], [address] RBC (Bld) [#/Vol] 4.12 10*6/uL Low 4.6-6.2 [facility] Comment on above: Order Comment: Order Date: 05/19/24Order Info: [id number] - CBCD Performed By: #### L 100.0100, L501.9985, L501.5200, L501.9520, L500.4050, L500.4100 ####[facility] [address] [place], [address] RDW SD 43.1 fl Normal 35.1-43.9 [facility] Comment on above: Order Comment: Order Date: 05/19/24Order Info: [id number] - CBCD Performed By: #### L 100.0100, L501.9985, L501.5200, L501.9520, L500.4050, L500.4100 ####[facility] [address] [place], [address] WBC (Bld) [#/Vol] 5.5 10*3/uL Normal 4.4-11.0 [facility] Comment on above: Order Comment: Order Date: 05/19/24Order Info: [id number] - CBCD Performed By: #### L 100.0100, L501.9985, L501.5200, L501.9520, L500.4050, L500.4100 ####[facility] [address] [place], [place], [address] Calculated very low density lipoprotein (VLDL) cholesterol measurementOrdered By: Davis Armstrong on 05-19-2024 Calculated very low density lipoprotein (VLDL) cholesterol measurement 10 mg/dL 5-40 [facility] VLDL Cholesterol 10 mg/dL 5-40 [facility] Carbon dioxide, total [Moles /volume] in Central venous bloodOrdered By: Davis Armstrong on 05-19-2024 CO2 [Moles/Vol] 19.7 mmol/L Low 21.0-32.0 [facility] Chloride assayOrdered By: Anuradha Armstrong on 05-19-2024 Chloride [Moles/Vol] 106 mmol/L 98-108 [facility] Comprehensive Metabolic Prof ilon 05-19-2024 Albumin [Mass/Vol] 4.1 g/dL Normal 3.4-4.8 [facility] Comment on above: Order Comment: Order Date: 05/19/24Order Info: [id number] - CMPOrder Info: [id number] - LIPIDOrder Info: - MGOrder Info: 3 - TSH Performed By: #### L 100.0100, L501.9985, L501.5200, L501.9520, L500.4050, L500.4100 ####[facility] [address] [place], [place], [id number] Albumin/Globulin [Mass ratio] 1.5 {ratio} Normal 0.9-2.4 [facility] Comment on above: Order Comment: Order Date: 05/19/24Order Info: [id number] - CMPOrder Info: [id number] - LIPIDOrder Info: - MGOrder Info: [id number] - TSH Performed By: #### L 100.0100, L501.9985, L501.5200, L501.9520, L500.4050, L500.4100 ####[facility] [address] [place], [address] ALK PHOS 93 U/L Normal 40-129 [facility] Comment on above: Order Comment: Order Date: 05/19/24Order Info: [id number] - CMPOrder Info: [id number] - LIPIDOrder Info: [id number] - MGOrder Info: [id number] - TSH Performed By: #### L 100.0100, L501.9985, L501.5200, L501.9520, L500.4050, L500.4100 ####[facility] [address] [place], [address] ALT [Catalytic activity/Vol] 16 U/L Normal <=46 [facility] Comment on above: Order Comment: Order Date: 05/19/24Order Info: [id number] - CMPOrder Info: [id number] - LIPIDOrder Info: [id number] - MGOrder Info: [id number] - TSH Performed By: #### L 100.0100, L501.9985, L501.5200, L501.9520, L500.4050, L500.4100 ####[facility] [address] [place], [address] AST [Catalytic activity/Vol] 28 U/L Normal <=37 [facility] Comment on above: Order Comment: Order Date: 05/19/24Order Info: [id number] - CMPOrder Info: [id number] - LIPIDOrder Info: [id number] - MGOrder Info: [id number] - TSH Performed By: #### L 100.0100, L501.9985, L501.5200, L501.9520, L500.4050, L500.4100 ####[facility] [address] [place], [address] Bilirubin [Mass/Vol] 0.61 mg/dL Normal 0.00-1.30 [facility] Comment on above: Order Comment: Order Date: 05/19/24Order Info: [id number] - CMPOrder Info: [id number] - LIPIDOrder Info: [id number] - MGOrder Info: [id number] - TSH Performed By: #### L 100.0100, L501.9985, L501.5200, L501.9520, L500.4050, L500.4100 ####[facility] [address] [place], [address] BUN/CRE 25.9 RATIO High 10-20 [facility] Comment on above: Order Comment: Order Date: 05/19/24Order Info: [id number] - CMPOrder Info: [id number] - LIPIDOrder Info: [id number] - MGOrder Info: 3 - TSH Performed By: #### L 100.0100, L501.9985, L501.5200, L501.9520, L500.4050, L500.4100 ####[facility] [address] [place], [address] Calcium [Mass/Vol] 9.0 mg/dL Normal 7.6-11.0 [facility] Comment on above: Order Comment: Order Date: 05/19/24Order Info: [id number] - CMPOrder Info: [id number] - LIPIDOrder Info: - MGOrder Info: [id number] - TSH Performed By: #### L 100.0100, L501.9985, L501.5200, L501.9520, L500.4050, L500.4100 ####[facility] [address] [place], [address] Chloride [Moles/Vol] 106 mmol/L Normal 98-108 [facility] Comment on above: Order Comment: Order Date: 05/19/24Order Info: [id number] - CMPOrder Info: [id number] - LIPIDOrder Info: [id number] - MGOrder Info: [id number] - TSH Performed By: #### L 100.0100, L501.9985, L501.5200, L501.9520, L500.4050, L500.4100 ####[facility] [address] [place], [place], [address] CO2 [Moles/Vol] 19.7 mmol/L Low 21.0-32.0 [facility] Comment on above: Order Comment: Order Date: 05/19/24Order Info: [id number] - CMPOrder Info: [id number] - LIPIDOrder Info: [id number] - MGOrder Info: [id number] - TSH Performed By: #### L 100.0100, L501.9985, L501.5200, L501.9520, L500.4050, L500.4100 ####[facility] [address] [place], [address] Creatinine [Mass/Vol] 0.69 mg/dL Low 0.70-1.20 [facility] Comment on above: Order Comment: Order Date: 05/19/24Order Info: 07-1 - CMPOrder Info: [id number] - LIPIDOrder Info: [id number] - MGOrder Info: [id number] - TSH Performed By: #### L 100.0100, L501.9985, L501.5200, L501.9520, L500.4050, L500.4100 ####[facility] [address] [place], [place], [address] GAP 13 Normal 5-15 [facility] Comment on above: Order Comment: Order Date: 05/19/24Order Info: [id number] - CMPOrder Info: [id number] - LIPIDOrder Info: [id number] - MGOrder Info: [id number] - TSH Performed By: #### L 100.0100, L501.9985, L501.5200, L501.9520, L500.4050, L500.4100 ####[facility] [address] [place], [place], [address] GFR/1.73 sq M.predicted among non-blacks MDRD (S/P/Bld) [Vol rate/Area] 98 mL/min/{1.73_m2} Normal >60 [facility] Comment on above: Order Comment: Order Date: 05/19/24Order Info: [id number] - CMPOrder Info: [id number] - LIPIDOrder Info: [id number] - MGOrder Info: [id number] - TSH Result Comment: mL/m in/1.73m2 CKD-EPI Creatinine Equation (2020) Performed By: #### L 100.0100, L501.9985, L501.5200, L501.9520, L500.4050, L500.4100 ####[facility] [address] [place], [address] Globulin (S) [Mass/Vol] 2.8 g/dL Normal 2.2-4.2 [facility] Comment on above: Order Comment: Order Date: 05/19/24Order Info: [id number]- - CMPOrder Info: - LIPIDOrder Info: - MGOrder Info: [id number] - TSH Performed By: #### L 100.0100, L501.9985, L501.5200, L501.9520, L500.4050, L500.4100 ####[facility] [address] [place], [address] Glucose [Mass/Vol] 89 mg/dL Normal 70-99 [facility] Comment on above: Order Comment: Order Date: 05/19/24Order Info: 07- - CMPOrder Info: - LIPIDOrder Info: - MGOrder Info: [id number] - TSH Performed By: #### L 100.0100, L501.9985, L501.5200, L501.9520, L500.4050, L500.4100 ####[facility] [address] [place], [address] Potassium [Moles/Vol] 3.9 mmol/L Normal 3.3-5.1 [facility] Comment on above: Order Comment: Order Date: 05/19/24Order Info: 86- - CMPOrder Info: - LIPIDOrder Info: [id number] - MGOrder Info: [id number] - TSH Performed By: #### L 100.0100, L501.9985, L501.5200, L501.9520, L500.4050, L500.4100 ####[facility] [address] [place], [place], [address] Sodium [Moles/Vol] 139 mmol/L Normal 133-145 [facility] Comment on above: Order Comment: Order Date: 05/19/24Order Info: 86-1 - CMPOrder Info: [id number] - LIPIDOrder Info: - MGOrder Info: [id number] - TSH Performed By: #### L 100.0100, L501.9985, L501.5200, L501.9520, L500.4050, L500.4100 ####[facility] [address] [place], [place], [address] T PROT 6.8 g/dL Normal 5.9-8.4 [facility] Comment on above: Order Comment: Order Date: 05/19/24Order Info: [id number]- - CMPOrder Info: - LIPIDOrder Info: - MGOrder Info: [id number] - TSH Performed By: #### L 100.0100, L501.9985, L501.5200, L501.9520, L500.4050, L500.4100 ####[facility] [address] [place], [place], [address] Urea nitrogen [Mass/Vol] 18 mg/dL Normal 4-19 [facility] Comment on above: Order Comment: Order Date: 05/19/24Order Info: [id number] - CMPOrder Info: [id number] - LIPIDOrder Info: - MGOrder Info: [id number] - TSH Performed By: #### L 100.0100, L501.9985, L501.5200, L501.9520, L500.4050, L500.4100 ####[facility] [address] [place], [address] Eosinophil percentageOrdered By: Davis Amrstrong on 05-19-2024 Eosinophils/100 WBC (Bld) 2.2 % 0-5 [facility] Erythrocyte distribution wid th ratioOrdered By: Davis Armstrong on 05-19-2024 Erythrocyte distribution width (RBC) [Ratio] 12.7 % 11.6-14.6 [facility] Erythrocyte distribution wid th standard deviationOrdered By: Davis Armstrong on 05-19-2024 Erythrocyte distribution width (RBC) [Entitic vol] 43.1 fL 35.1-43.9 [facility] Erythrocyte distribution width (RBC) [Ratio] 43.1 fl 35.1-43.9 [facility] GFR/1.73 sq M.predicted nirmal g non-blacks MDRD (S/P/Bld) [Vol rate/Area]Ordered By: Davis Armstrong on 05-19-2024 Estimated GFR (MDRD) Non-Af Amer 98 >60 [facility] Comment on above: mL/min/1.73m2 CKD-EP I Creatinine Equation (2020) Glomerular filtration rate ( GFR) estimation/1.73 sq m using serum, plasma, or whole bOrdered By: Davis Armstrong on 05-19-2024 GFR/1.73 sq M.predicted among non-blacks MDRD (S/P/Bld) [Vol rate/Area] 98 mL/min/{1.73_m2} >60 [facility] Comment on above: mL/min/1.73m2 CKD-EP I Creatinine Equation (2020) Hematocrit Auto (Bld) [Volum e fraction]Ordered By: Davis Armstrong on 05-19-2024 Hematocrit (Bld) [Volume fraction] 38.2 % Low 40-54 [facility] Hemoglobin A1con 05-19-2024 HbA1c (Bld) [Mass fraction] 6.4 % Normal <=5.6 [facility] Comment on above: Order Comment: Order Date: 05/19/24Order Info: [id number] - A1C Performed By: #### L 100.0100, L501.9985, L501.5200, L501.9520, L500.4050, L500.4100 ####[facility] [address] [place], [address] Hemoglobin A1c percentageOrd ered By: Davis Armstrong on 05-19-2024 HbA1c (Bld) [Mass fraction] 6.4 % >5.7 [facility] Hemoglobin measurementOrdere d By: Davis Armstrong on 05-19-2024 Hemoglobin (Bld) [Mass/Vol] 12.7 g/dL Low 13.0-16.5 [facility] Immature granulocytes/100 WB C Auto (Bld)Ordered By: Davis Armstrong on 05-19-2024 Immature granulocytes/100 WBC (Bld) 0.400 % 0.0-0.9 [facility] Comment on above: IG% - Immature Granu locytes (promyelocytes, myelocytes and metamyelocytes) > 1% indicates that a LEFT SHIFT is Present. LDL calc ser/plasOrdered By: Davis Armstrong on 05-19-2024 Cholesterol in LDL [Mass/Vol] 61 mg/dL [facility] Comment on above: Crzawwixbf=828-779 m g/dL & Higher Zljc=969 mg/dL or greater LDL Cholesterol, Calculated 61 mg/dL [facility] Comment on above: Qufubxujvc=796-901 m g/dL & Higher Cxgr=329 mg/dL or greater Laboratory - Chemistry and C hemistry - challengeOrdered By: Davis Armstrong on 05-19-2024 AST [Catalytic activity/Vol] 28 U/L <38 [facility] Lipid Profileon 05-19-2024 CHOL:HDL 2.32 Normal [facility] Comment on above: Order Comment: Order Date: 05/19/24Order Info: [id number] - CMPOrder Info: [id number] - LIPIDOrder Info: [id number] - MGOrder Info: [id number] - TSH Performed By: #### L 100.0100, L501.9985, L501.5200, L501.9520, L500.4050, L500.4100 ####[facility] [address], [address] Cholesterol [Mass/Vol] 126 mg/dL Normal <=200 [facility] Comment on above: Order Comment: Order Date: 05/19/24Order Info: [id number] - CMPOrder Info: [id number] - LIPIDOrder Info: [id number] - MGOrder Info: 3 - TSH Result Comment: Chol esterol level, Desirable <200 mg/dL Borderline high cholesterol 200-239 mg/dL High cholesterol >=240 mg/dL Recommendations of the NCEP Adult Treatment Panel for the following risk-cutoff thresholds for the [place] population. Performed By: #### L 100.0100, L501.9985, L501.5200, L501.9520, L500.4050, L500.4100 ####[facility] [address] [place], [address] Cholesterol in HDL [Mass/Vol] 54 mg/dL Normal [facility] Comment on above: Order Comment: Order Date: 05/19/24Order Info: [id number] - CMPOrder Info: [id number] - LIPIDOrder Info: [id number] - MGOrder Info: 3 - TSH Result Comment: [place] on[place] Cholesterol Education Program (NCEP) guidelines: <40 mg/dL: Low HDL-cholesterol (major risk factor for CHD) >= 60 mg/dL: High HDL-cholesterol (negative risk factor for CHD) HDL-cholesterol is affected by a number of factors, e.g. smoking, exercise, hormones, sex and age. Performed By: #### L 100.0100, L501.9985, L501.5200, L501.9520, L500.4050, L500.4100 ####[facility] [address] [place], [place], [address]) Cholesterol in LDL [Mass/Vol] 61 mg/dL Normal [facility] Comment on above: Order Comment: Order Date: 05/19/24Order Info: [id number] - CMPOrder Info: [id number] - LIPIDOrder Info: [id number] - MGOrder Info: [id number] - TSH Result Comment: Bord tbxkxx=983-220 mg/dL Higher Noiz=928 mg/dL or greater Performed By: #### L 100.0100, L501.9985, L501.5200, L501.9520, L500.4050, L500.4100 ####[facility] [address] [place], [address] Cholesterol in VLDL [Mass/Vol] 10 mg/dL Normal 5-40 [facility] Comment on above: Order Comment: Order Date: 05/19/24Order Info: [id number] - CMPOrder Info: [id number] - LIPIDOrder Info: [id number] - MGOrder Info: [id number] - TSH Performed By: #### L 100.0100, L501.9985, L501.5200, L501.9520, L500.4050, L500.4100 ####[facility] [address], [address] Triglyceride [Mass/Vol] 52 mg/dL Normal [facility] Comment on above: Order Comment: Order Date: 05/19/24Order Info: [id number] - CMPOrder Info: [id number] - LIPIDOrder Info: [id number] - MGOrder Info: [id number] - TSH Result Comment: The drugs N-Acetylcysteine and Metamizole may falsely depress this assay. Normal range: <150 mg/dL Borderline High: 150-199 mg/dL High: 200-499 mg/dL Very High: >500 mg/dL Performed By: #### L 100.0100, L501.9985, L501.5200, L501.9520, L500.4050, L500.4100 ####[facility] [address] [place], [address] Lymphocytes Auto (Unsp spec) [#/Vol]Ordered By: Davis Armstrong on 05-19-2024 Lymphocytes (Bld) [#/Vol] 0.85 10*3/uL 0.83-4.51 [facility] Lymphocytes/100 WBC Auto (Un sp spec)Ordered By: Davis Armstrong on 05-19-2024 Lymphocytes/100 WBC (Bld) 15.5 % Low 19-41 [facility] MCV (mean corpuscular volume ) determinationOrdered By: Davis Armstrong on 05-19-2024 MCV (RBC) [Entitic vol] 92.7 fL 80-94 [facility] Magnesiumon 05-19-2024 Magnesium [Mass/Vol] 1.9 mg/dL Normal 1.5-2.2 [facility] Comment on above: Order Comment: Order Date: 05/19/24Order Info: [id number] - CMPOrder Info: [id number] - LIPIDOrder Info: [id number] - MGOrder Info: [id number] - TSH Performed By: #### L 100.0100, L501.9985, L501.5200, L501.9520, L500.4050, L500.4100 ####[facility] [address] [place], [address] Magnesium (Unsp spec) [Mass/ Vol]Ordered By: Davis Armstrong on 05-19-2024 Magnesium [Mass/Vol] 1.9 mg/dL 1.5-2.2 [facility] Magnesium measurement (mass/ volume)Ordered By: Davis Armstrong on 05-19-2024 Magnesium (Unsp spec) [Mass/Vol] 1.9 mg/dL 1.5-2.2 [facility] Mean corpuscular hemoglobin (MCH) determinationOrdered By: Davis Armstrong on 05-19-2024 MCH (RBC) [Entitic mass] 30.8 pg 27.0-32.0 [facility] Mean corpuscular hemoglobin concentration (MCHC) determinationOrdered By: Davis Armstrong on 05-19-2024 MCHC (RBC) [Mass/Vol] 33.2 g/dL 32-36 [facility] Mean platelet volume determi nationOrdered By: Davis Armstrong on 05-19-2024 Platelet mean volume (Bld) [Entitic vol] 10.8 fL 6.2-12.0 [facility] Microalbumin,Random Urineon 05-19-2024 MICROALBUMIN,UR 28.6 mg/L Normal NO RANGE EST. [facility] Comment on above: Performed By: #### L 502.0500 ####[facility] [address] [place], [address] Monocyte percentageOrdered B y: Davis Armstrong on 05-19-2024 Monocytes/100 WBC (Bld) 7.5 % 0-10 [facility] Neutrophil percentageOrdered By: Davis Armstrong on 05-19-2024 Neutrophils/100 WBC (Bld) 73.3 % High 47-70 [facility] Nucleated red blood cell per centageOrdered By: Davis Armstrong on 05-19-2024 Nucleated RBC/100 WBC (Bld) [Ratio] 0 % 0-5 [facility] Platelet countOrdered By: Anuradha Armstrong on 05-19-2024 Platelets (Bld) [#/Vol] 256 10*3/uL 150-450 [facility] Potassium (Unsp spec) [Mass/ Vol]Ordered By: Davis Armstrong on 05-19-2024 Potassium [Moles/Vol] 3.9 mmol/L 3.3-5.1 [facility] Potassium measurement (mass/ volume)Ordered By: Davis Armstrong on 05-19-2024 Potassium (Unsp spec) [Mass/Vol] 3.9 mmol/L 3.3-5.1 [facility] RBC Auto (Bld) [#/Vol]Ordere d By: Davis Armstrong on 05-19-2024 RBC (Bld) [#/Vol] 4.12 10*6/uL Low 4.6-6.2 [facility] Screening total cholesterol/ high density lipoprotein (HDL) cholesterol ratioOrdered By: Davis Armstrong on 05-19-2024 Cholesterol.total/Choles terol in HDL [Mass ratio] 2.32 {ratio} [facility] Serum creatinine measurement (mass/volume)Ordered By: Davis Armstrong on 05-19-2024 Creatinine [Mass/Vol] 0.69 mg/dL Low 0.70-1.20 [facility] Serum globulin measurementOr dered By: Davis Armstrong on 05-19-2024 Globulin (S) [Mass/Vol] 2.8 g/dL 2.2-4.2 [facility] Serum glucose measurement (m ass/volume)Ordered By: Davis Armstrong on 05-19-2024 Glucose [Mass/Vol] 89 mg/dL 70-99 [facility] Serum or plasma alanine sands otransferase (ALT) measurementOrdered By: Davis Armstrong on 05-19-2024 ALT [Catalytic activity/Vol] 16 U/L <47 [facility] Serum or plasma albumin ash urement (mass/volume)Ordered By: Davis Armstrong on 05-19-2024 Albumin [Mass/Vol] 4.1 g/dL 3.4-4.8 [facility] Serum or plasma albumin/glob ulin mass ratioOrdered By: Davis Armstrong on 05-19-2024 Albumin/Globulin [Mass ratio] 1.5 {ratio} 0.9-2.4 [facility] Serum or plasma alkaline katty sphatase measurementOrdered By: Davis Armstrong on 05-19-2024 ALP [Catalytic activity/Vol] 93 U/L 40-129 [facility] Serum or plasma calcium ash urement (mass/volume)Ordered By: Davis Armstrong on 05-19-2024 Calcium [Mass/Vol] 9.0 mg/dL 7.6-11.0 [facility] Serum or plasma cholesterol in HDL measurement (mass/volume)Ordered By: Davis Armstrong on 05-19-2024 Cholesterol in HDL [Mass/Vol] 54 mg/dL >40 [facility] Comment on above: National Cholesterol Education Program (NCEP) guidelines:<40 mg/dL: Low HDL-cholesterol (major risk factor for CHD)>= 60 mg/dL: High HDL-cholesterol (negative risk factor for CHD)HDL-cholesterol is affected by a number of factors, e.g. smoking, exercise, hormones, sex and age. Serum or plasma cholesterol measurement (mass/volume)Ordered By: Davis Armstrong on 05-19-2024 Cholesterol [Mass/Vol] 126 mg/dL <201 [facility] Comment on above: Cholesterol level, D esirable <200 mg/dLBorderline high cholesterol 200-239 mg/dLHigh cholesterol >=240 mg/dLRecommendations of the NCEP Adult Treatment Panel for the following risk-cutoff thresholds for the [place] population. Serum or plasma urea nitroge n measurement (mass/volume)Ordered By: Davis Armstrong on 05-19-2024 Urea nitrogen [Mass/Vol] 18 mg/dL 4-19 [facility] Sodium levelOrdered By: Davis Armstrong on 05-19-2024 Sodium [Moles/Vol] 139 mmol/L 133-145 [facility] TSH DL <= 0.005 mIU/L QnOrde red By: Davis Armstrong on 05-19-2024 Thyroid Stimulating Hormone (TSH) 2.270 uIU/mL 0.300-4.200 [facility] TSH Qn 2.270 uIU/mL 0.300-4.200 [facility] Thyroid Stim Hormone (TSH)on 05-19-2024 TSH 2.270 uIU/mL Normal 0.300-4.200 [facility] Comment on above: Order Comment: Order Date: 05/19/24Order Info: [id number] - CMPOrder Info: [id number] - LIPIDOrder Info: [id number] - MGOrder Info: [id number] - TSH Performed By: #### L 100.0100, L501.9985, L501.5200, L501.9520, L500.4050, L500.4100 ####[facility] [id number] [facility]. [place], [place], [id number] Total proteinOrdered By: Jarek Armstrong on 05-19-2024 Protein [Mass/Vol] 6.8 g/dL 5.9-8.4 [facility] Triglycerides measurementOrd ered By: Davis Armstrong on 05-19-2024 Triglyceride [Mass/Vol] 52 mg/dL <199 [facility] Comment on above: The drugs N-Acetylcy steine and Metamizole may falsely depress this assay. Normal range: <150 mg/dLBorderline High: 150-199 mg/dLHigh: 200-499 mg/dLVery High: >500 mg/dL Urine albumin measurement wi detection limit of 20 mg/L or less (mass/volume)Ordered By: Davis Armstrong on 05-19-2024 Albumin DL <= 20 mg/L (U) [Mass/Vol] 28.6 mg/L NO RANGE EST. [facility] White blood cell (WBC) count Ordered By: Davis Armstrong on 05-19-2024 WBC (Bld) [#/Vol] 5.5 10*3/uL 4.4-11.0 [facility] PSA,Total - Annual Screenon 01-14-2024 PSA,TOT SCREEN 1.40 ng/mL Normal 0.00-4.00 [facility] Comment on above: Order Comment: Order Date: 01/14/24Order Info: [id number] - PSA Result Comment: This test was performed using the TPSA assay method for the [employer] chemistry system. Values obtained with different assay methods cannot be used interchangably. When changing PSA assays in the course of monitoring a patient, additional sequential testing should be carried out to confirm baseline values. Performed By: #### L 501.9910 ####[facility] [id number], [address] CBC W/Diff, Automatedon 08-16 Absolute Lymph 0.86 X10 3/uL Normal 0.83-4.51 [facility] Comment on above: Order Comment: Order Date: 05/09/23 Order Info: [id number] - CBCD Performed By: #### L 500.4050, L501.9985, L500.4100, L501.5200, L100.0100 #### [facility] [address] [place], [address] Absolute Neut 3.8 X10 3/uL Normal 2.0-7.7 [facility] Comment on above: Order Comment: Order Date: 05/09/23 Order Info: [id number] - CBCD Performed By: #### L 500.4050, L501.9985, L500.4100, L501.5200, L100.0100 #### [facility] [address] [place], [address] Basophils/100 WBC (Bld) 0.9 % Normal 0-1 [facility] Comment on above: Order Comment: Order Date: 05/09/23 Order Info: [id number] - CBCD Performed By: #### L 500.4050, L501.9985, L500.4100, L501.5200, L100.0100 #### [facility] [address] [place], [address] Eosinophils/100 WBC (Bld) 3.6 % Normal 0-5 [facility] Comment on above: Order Comment: Order Date: 05/09/23 Order Info: [id number] - CBCD Performed By: #### L 500.4050, L501.9985, L500.4100, L501.5200, L100.0100 #### [facility] [address] [place], [address] Erythrocyte distribution width (RBC) [Ratio] 12.4 % Normal 11.6-14.6 [facility] Comment on above: Order Comment: Order Date: 05/09/23 Order Info: [id number] - CBCD Performed By: #### L 500.4050, L501.9985, L500.4100, L501.5200, L100.0100 #### [facility] [address] [place], [address] Hematocrit (Bld) [Volume fraction] 40.3 % Normal 40-54 [facility] Comment on above: Order Comment: Order Date: 05/09/23 Order Info: [id number]- - CBCD Performed By: #### L 500.4050, L501.9985, L500.4100, L501.5200, L100.0100 #### [facility] [address] [place], [address] Hemoglobin (Bld) [Mass/Vol] 13.4 g/dL Normal 13.0-16.5 [facility] Comment on above: Order Comment: Order Date: 05/09/23 Order Info: [id number] - CBCD Performed By: #### L 500.4050, L501.9985, L500.4100, L501.5200, L100.0100 #### [facility] [address] [place], [address] IG% 0.400 Normal 0.0-0.9 [facility] Comment on above: Order Comment: Order Date: 05/09/23 Order Info: [id number] - CBCD Result Comment: IG% - Immature Granulocytes (promyelocytes, myelocytes and metamyelocytes) > 1% indicates that a LEFT SHIFT is Present. Performed By: #### L 500.4050, L501.9985, L500.4100, L501.5200, L100.0100 #### [facility] [address] [place], [address] Lymphocytes/100 WBC (Bld) 16.1 % Low 19-41 [facility] Comment on above: Order Comment: Order Date: 05/09/23 Order Info: [id number] - CBCD Performed By: #### L 500.4050, L501.9985, L500.4100, L501.5200, L100.0100 #### [facility] [address] [place], [address] MCH (RBC) [Entitic mass] 30.4 pg Normal 27.0-32.0 [facility] Comment on above: Order Comment: Order Date: 05/09/23 Order Info: [id number] - CBCD Performed By: #### L 500.4050, L501.9985, L500.4100, L501.5200, L100.0100 #### [facility] [address] [place], [address] MCHC (RBC) [Mass/Vol] 33.3 g/dL Normal 32-36 [facility] Comment on above: Order Comment: Order Date: 05/09/23 Order Info: [id number] - CBCD Performed By: #### L 500.4050, L501.9985, L500.4100, L501.5200, L100.0100 #### [facility] [address] [place], [address] MCV (RBC) [Entitic vol] 91.4 fL Normal 80-94 [facility] Comment on above: Order Comment: Order Date: 05/09/23 Order Info: [id number] - CBCD Performed By: #### L 500.4050, L501.9985, L500.4100, L501.5200, L100.0100 #### [facility] [address] [place], [address] Monocytes/100 WBC (Bld) 8.4 % Normal 0-10 [facility] Comment on above: Order Comment: Order Date: 05/09/23 Order Info: [id number] - CBCD Performed By: #### L 500.4050, L501.9985, L500.4100, L501.5200, L100.0100 #### [facility] [address] [place], [address] Neutrophils/100 WBC (Bld) 70.6 % High 47-70 [facility] Comment on above: Order Comment: Order Date: 05/09/23 Order Info: [id number] - CBCD Performed By: #### L 500.4050, L501.9985, L500.4100, L501.5200, L100.0100 #### [facility] [address] [place], [address] Nucleated RBC (Bld) [#/Vol] 0 10*3/uL Normal 0-5 [facility] Comment on above: Order Comment: Order Date: 05/09/23 Order Info: [id number] - CBCD Performed By: #### L 500.4050, L501.9985, L500.4100, L501.5200, L100.0100 #### [facility] [address] [place], [address] Platelet mean volume (Bld) [Entitic vol] 10.4 fL Normal 6.2-12.0 [facility] Comment on above: Order Comment: Order Date: 05/09/23 Order Info: [id number] - CBCD Performed By: #### L 500.4050, L501.9985, L500.4100, L501.5200, L100.0100 #### [facility] [address] [place], [address] Platelets (Bld) [#/Vol] 245 10*3/uL Normal 150-450 [facility] Comment on above: Order Comment: Order Date: 05/09/23 Order Info: [id number] - CBCD Performed By: #### L 500.4050, L501.9985, L500.4100, L501.5200, L100.0100 #### [facility] [address] [place], [address] RBC (Bld) [#/Vol] 4.41 10*6/uL Low 4.6-6.2 [facility] Comment on above: Order Comment: Order Date: 05/09/23 Order Info: [id number] - CBCD Performed By: #### L 500.4050, L501.9985, L500.4100, L501.5200, L100.0100 #### [facility] [address] [place], [address] RDW SD 41.7 fl Normal 35.1-43.9 [facility] Comment on above: Order Comment: Order Date: 05/09/23 Order Info: [id number] - CBCD Performed By: #### L 500.4050, L501.9985, L500.4100, L501.5200, L100.0100 #### [facility] [address] [place], [address] WBC (Bld) [#/Vol] 5.3 10*3/uL Normal 4.4-11.0 [facility] Comment on above: Order Comment: Order Date: 05/09/23 Order Info: [id number] - CBCD Performed By: #### L 500.4050, L501.9985, L500.4100, L501.5200, L100.0100 #### [facility] [address] [place], [address] Comprehensive Metabolic Prof ilon 09-10-2023 Albumin [Mass/Vol] 3.7 g/dL Normal 3.2-5.0 [facility] Comment on above: Order Comment: Order Date: 05/09/23 Order Info: [id number] - CMP Order Info: [id number] - LIPID Order Info: [id number] - MG Performed By: #### L 500.4050, L501.9985, L500.4100, L501.5200, L100.0100 #### [facility] [address] [place], [address] Albumin/Globulin [Mass ratio] 1.1 {ratio} Normal 0.9-2.4 [facility] Comment on above: Order Comment: Order Date: 05/09/23 Order Info: [id number] - CMP Order Info: [id number] - LIPID Order Info: [id number] - MG Performed By: #### L 500.4050, L501.9985, L500.4100, L501.5200, L100.0100 #### [facility] [address] [place], [address] ALK P 85 U/L Normal 45-117 [facility] Comment on above: Order Comment: Order Date: 05/09/23 Order Info: [id number] - CMP Order Info: [id number] - LIPID Order Info: [id number] - MG Performed By: #### L 500.4050, L501.9985, L500.4100, L501.5200, L100.0100 #### [facility] [address] [place], [address] ALT [Catalytic activity/Vol] 18 U/L Normal 16-61 [facility] Comment on above: Order Comment: Order Date: 05/09/23 Order Info: [id number] - CMP Order Info: [id number] - LIPID Order Info: [id number] - MG Performed By: #### L 500.4050, L501.9985, L500.4100, L501.5200, L100.0100 #### [facility] [address] [place], [address] AST [Catalytic activity/Vol] 19 U/L Normal 15-37 [facility] Comment on above: Order Comment: Order Date: 05/09/23 Order Info: [id number] - CMP Order Info: - LIPID Order Info: [id number] - MG Performed By: #### L 500.4050, L501.9985, L500.4100, L501.5200, L100.0100 #### [facility] [address] [place], [address] Bilirubin [Mass/Vol] 1.00 mg/dL Normal 0.20-1.00 [facility] Comment on above: Order Comment: Order Date: 05/09/23 Order Info: [id number]- - CMP Order Info: - LIPID Order Info: [id number] - MG Result Comment: For patients on eltrombopag therapy, use of Dimension [place] TBIL is not recommended. Performed By: #### L 500.4050, L501.9985, L500.4100, L501.5200, L100.0100 #### [facility] [address] [place], [address] BUN/CRE 23.3 RATIO High 10-20 [facility] Comment on above: Order Comment: Order Date: 05/09/23 Order Info: [id number] - CMP Order Info: [id number] - LIPID Order Info: [id number] - MG Performed By: #### L 500.4050, L501.9985, L500.4100, L501.5200, L100.0100 #### [facility] [address] [place], [address] CA,Total 9.1 mg/dL Normal 8.5-10.1 [facility] Comment on above: Order Comment: Order Date: 05/09/23 Order Info: [id number] - CMP Order Info: [id number] - LIPID Order Info: [id number] - MG Performed By: #### L 500.4050, L501.9985, L500.4100, L501.5200, L100.0100 #### [facility] [address] [place], [address] Chloride [Moles/Vol] 108 mmol/L High 98-107 [facility] Comment on above: Order Comment: Order Date: 05/09/23 Order Info: [id number] - CMP Order Info: [id number] - LIPID Order Info: [id number] - MG Performed By: #### L 500.4050, L501.9985, L500.4100, L501.5200, L100.0100 #### [facility] [address] [place], [address] CO2 [Moles/Vol] 23.0 mmol/L Normal 21.0-32.0 [facility] Comment on above: Order Comment: Order Date: 05/09/23 Order Info: [id number]- - CMP Order Info: [id number] - LIPID Order Info: [id number] - MG Performed By: #### L 500.4050, L501.9985, L500.4100, L501.5200, L100.0100 #### [facility] [address] [place], [address] Creatinine [Mass/Vol] 0.86 mg/dL Normal 0.70-1.30 [facility] Comment on above: Order Comment: Order Date: 05/09/23 Order Info: [id number] - CMP Order Info: [id number] - LIPID Order Info: [id number] - MG Result Comment: The validity of the calculated GFR GFRAA in patients over 70 years has not been determined. Clinical correlation is essential. Performed By: #### L 500.4050, L501.9985, L500.4100, L501.5200, L100.0100 #### [facility] [address] [place], [address] EST GFR - AA 113 mL/min Normal >60 [facility] Comment on above: Order Comment: Order Date: 05/09/23 Order Info: [id number] - CMP Order Info: [id number] - LIPID Order Info: [id number] - MG Result Comment: Afri can [place] GFR Calc Performed By: #### L 500.4050, L501.9985, L500.4100, L501.5200, L100.0100 #### [facility] [address] [place], [address] GAP 7 Normal 5-15 [facility] Comment on above: Order Comment: Order Date: 05/09/23 Order Info: [id number] - CMP Order Info: [id number] - LIPID Order Info: [id number] - MG Performed By: #### L 500.4050, L501.9985, L500.4100, L501.5200, L100.0100 #### [facility] [address] [place], [address] GFR/1.73 sq M.predicted among non-blacks MDRD (S/P/Bld) [Vol rate/Area] 93 mL/min/{1.73_m2} Normal >60 [facility] Comment on above: Order Comment: Order Date: 05/09/23 Order Info: [id number] - CMP Order Info: [id number] - LIPID Order Info: [id number] - MG Result Comment: Non- GFR Calc Performed By: #### L 500.4050, L501.9985, L500.4100, L501.5200, L100.0100 #### [facility] [address] [place], [address] Globulin (S) [Mass/Vol] 3.5 g/dL Normal 2.2-4.2 [facility] Comment on above: Order Comment: Order Date: 05/09/23 Order Info: [id number] - CMP Order Info: [id number] - LIPID Order Info: [id number] - MG Performed By: #### L 500.4050, L501.9985, L500.4100, L501.5200, L100.0100 #### [facility] [address] [place], [address] Glucose [Mass/Vol] 105 mg/dL Normal 74-106 [facility] Comment on above: Order Comment: Order Date: 05/09/23 Order Info: [id number]- - CMP Order Info: [id number] - LIPID Order Info: [id number] - MG Result Comment: Fast ing Glucose result from 100 to 125 mg/dL suggests IMPAIRED HOMEOSTASIS per A.D.A. criteria. Performed By: #### L 500.4050, L501.9985, L500.4100, L501.5200, L100.0100 #### [facility] [address] [place], [address] Potassium [Moles/Vol] 3.8 mmol/L Normal 3.5-5.1 [facility] Comment on above: Order Comment: Order Date: 05/09/23 Order Info: [id number]- - CMP Order Info: [id number] - LIPID Order Info: [id number] - MG Performed By: #### L 500.4050, L501.9985, L500.4100, L501.5200, L100.0100 #### [facility] [address] [place], [address] Sodium [Moles/Vol] 138 mmol/L Normal 136-145 [facility] Comment on above: Order Comment: Order Date: 05/09/23 Order Info: [id number] - CMP Order Info: [id number] - LIPID Order Info: [id number] - MG Performed By: #### L 500.4050, L501.9985, L500.4100, L501.5200, L100.0100 #### [facility] [address] [place], [address] T PROT 7.2 g/dL Normal 6.4-8.2 [facility] Comment on above: Order Comment: Order Date: 05/09/23 Order Info: [id number] - CMP Order Info: [id number] - LIPID Order Info: [id number] - MG Performed By: #### L 500.4050, L501.9985, L500.4100, L501.5200, L100.0100 #### [facility] [address] [place], [address] Urea nitrogen [Mass/Vol] 20 mg/dL High 7-18 [facility] Comment on above: Order Comment: Order Date: 05/09/23 Order Info: [id number] - CMP Order Info: [id number] - LIPID Order Info: [id number] - MG Performed By: #### L 500.4050, L501.9985, L500.4100, L501.5200, L100.0100 #### [facility] [address] [place], [address] Hemoglobin A1con 09-10-2023 HbA1c (Bld) [Mass fraction] 6.0 % High 3.8-5.6 [facility] Comment on above: Order Comment: Order Date: 05/09/23 Order Info: [id number] - A1C Result Comment: Norm al < 5.7 % Prediabetic 5.7 - 6.4 % Diabetic >or= 6.5 % Please note range changes. Performed By: #### L 500.4050, L501.9985, L500.4100, L501.5200, L100.0100 #### [facility] [address] [place], [address] Lipid Profileon 09-10-2023 Cholesterol [Mass/Vol] 148 mg/dL Normal 200 [facility] Comment on above: Order Comment: Order Date: 05/09/23 Order Info: [id number] - CMP Order Info: [id number] - LIPID Order Info: [id number] - MG Result Comment: <200 mg/dL Desirable 200-240 mg/dL Borderline >240 mg/dL High Risk Performed By: #### L 500.4050, L501.9985, L500.4100, L501.5200, L100.0100 #### [facility] [address] [place], [address] Cholesterol in HDL [Mass/Vol] 60 mg/dL Normal [facility] Comment on above: Order Comment: Order Date: 05/09/23 Order Info: [id number] - CMP Order Info: [id number] - LIPID Order Info: [id number] - MG Result Comment: The drugs N-Acetylcysteine and Metamizole may falsely depress this assay. Reference Range HDL <40 mg/dL Low HDL Cholesterol HDL >or= 60 mg/dL High HDL Cholesterol Performed By: #### L 500.4050, L501.9985, L500.4100, L501.5200, L100.0100 #### [facility] [address] [place], [address] Cholesterol in LDL [Mass/Vol] 74 mg/dL Normal 0-130 [facility] Comment on above: Order Comment: Order Date: 05/09/23 Order Info: [id number]- - CMP Order Info: [id number] - LIPID Order Info: [id number] - MG Performed By: #### L 500.4050, L501.9985, L500.4100, L501.5200, L100.0100 #### [facility] [address] [place], [address] Cholesterol in VLDL [Mass/Vol] 14 mg/dL Normal 5-40 [facility] Comment on above: Order Comment: Order Date: 05/09/23 Order Info: [id number]- - CMP Order Info: [id number] - LIPID Order Info: [id number] - MG Performed By: #### L 500.4050, L501.9985, L500.4100, L501.5200, L100.0100 #### [facility] [address] [place], [address] Triglyceride [Mass/Vol] 68 mg/dL Normal [facility] Comment on above: Order Comment: Order Date: 05/09/23 Order Info: [id number] - CMP Order Info: [id number] - LIPID Order Info: [id number] - MG Result Comment: The drugs N-Acetylcysteine and Metamizole may falsely depress this assay. Serum Triglycerides Reference Interval Normal <150 mg/dL Borderline high 150 - 199 mg/dL High 200 - 499 mg/dL Very High > or = 500 mg/dL Performed By: #### L 500.4050, L501.9985, L500.4100, L501.5200, L100.0100 #### [facility] [address] [place], [address] Magnesiumon 09-10-2023 Magnesium [Mass/Vol] 2.1 mg/dL Normal 1.6-2.6 [facility] Comment on above: Order Comment: Order Date: 05/09/23 Order Info: [id number] - CMP Order Info: [id number] - LIPID Order Info: [id number] - MG Performed By: #### L 500.4050, L501.9985, L500.4100, L501.5200, L100.0100 #### [facility] [address] [place], [address] Urinalysis, Completeon 09-09 BACTERIA 0 SEEN Normal None Seen [facility] Comment on above: Order Comment: CLEAN CATCH Performed By: #### L 400.0001 ####[facility] [address] [place], [address] EPI,SQUAMOUS 0 SEEN Normal 0-5 [facility] Comment on above: Order Comment: CLEAN CATCH Performed By: #### L 400.0001 ####[facility] [address] [place], [address] Mucus Ql (Urine sed) 0 SEEN Normal [facility] Comment on above: Order Comment: CLEAN CATCH Performed By: #### L 400.0001 ####[facility] [id number] [place], [address] RBC 0 SEEN Normal 0-5 [facility] Comment on above: Order Comment: CLEAN CATCH Performed By: #### L 400.0001 ####[facility] [address] [place], [address] WBC 0 SEEN Normal 0-5 [facility] Comment on above: Order Comment: CLEAN CATCH Performed By: #### L 400.0001 ####[facility] [id number] [place], [place], [id number] Absolute lymphocyte countOrd ered By: Davis Armstrong on 05-08-2023 Lymphocytes Auto (Unsp spec) [#/Vol] 0.83 10*3/uL 0.83-4.51 [facility] Automated lymphocyte count a s percentage of total leukocytesOrdered By: Davis Armstrong on 05-08-2023 Lymphocytes/100 WBC Auto (Unsp spec) 10.3 % 19-41 [facility] Basophil percentageOrdered B y: Davis Armstrong on 05-08-2023 Basophils/100 WBC (Bld) 0.7 % 0-1 [facility] Bilirubin [Mass/Vol] 1.10 mg/dL 0.20-1.00 [facility] Comment on above: For patients on eltr ombopag therapy, use of Dimension [place] TBIL is not recommended. Chloride [Moles/Vol] 109 mmol/L 98-107 [facility] Cholesterol [Mass/Vol] 139 mg/dL <200 [facility] Comment on above: <200 mg/dL Desirable 200-240 mg/dL Borderline >240 mg/dL High Risk Eosinophils/100 WBC (Bld) 1.1 % 0-5 [facility] Glucose [Mass/Vol] 111 mg/dL 74-106 [facility] Comment on above: Fasting Glucose resu lt from 100 to 125 mg/dL suggests IMPAIRED HOMEOSTASIS per A.D.A. criteria. Hemoglobin (Bld) [Mass/Vol] 13.9 g/dL 13.0-16.5 [facility] Monocytes/100 WBC (Bld) 8.3 % 0-10 [facility] Neutrophils (Bld) [#/Vol] 6.4 10*3/uL 2.0-7.7 [facility] Neutrophils/100 WBC (Bld) 79.2 % 47-70 [facility] Potassium [Moles/Vol] 3.8 mmol/L 3.5-5.1 [facility] Protein [Mass/Vol] 7.3 g/dL 6.4-8.2 [facility] Sodium [Moles/Vol] 136 mmol/L 136-145 [facility] Triglyceride [Mass/Vol] 93 mg/dL <199 [facility] Comment on above: The drugs N-Acetylcy steine and Metamizole may falsely depress this assay.Serum Triglycerides Reference Interval Normal <150 mg/dL Borderline high 150 - 199 mg/dL High 200 - 499 mg/dL Very High > or = 500 mg/dL WBC (Bld) [#/Vol] 8.1 10*3/uL 4.4-11.0 [facility] Bilirubin Test strip Ql (U)O rdered By: Davis Armstrong on 05-08-2023 Bilirubin Ql (U) Negative Negative [facility] Determination of erythrocyte mean corpuscular volume (MCV)Ordered By: Davis Armstrong on 05-08-2023 MCV (RBC) [Entitic vol] 91.5 fL 80-94 [facility] Erythrocyte distribution wid th ratioOrdered By: Davis Armstrong on 05-08-2023 Erythrocyte distribution width (RBC) [Ratio] 12.9 % 11.6-14.6 [facility] Erythrocyte distribution wid th standard deviationOrdered By: Davis Armstrong on 05-08-2023 Erythrocyte distribution width (RBC) [Entitic vol] 43.3 fL 35.1-43.9 [facility] Hematocrit Auto (Bld) [Volum e fraction]Ordered By: Davis Armstrong on 05-08-2023 Hematocrit (Bld) [Volume fraction] 41.0 % 40-54 [facility] Immature granulocytes/100 WB C Auto (Bld)Ordered By: Davis Armstrong on 05-08-2023 Immature granulocytes/100 WBC (Bld) 0.400 % 0.0-0.9 [facility] Comment on above: IG% - Immature Granu locytes (promyelocytes, myelocytes and metamyelocytes) > 1% indicates that a LEFT SHIFT is Present. Ketones Test strip Ql (U)Ord ered By: Davis Armstrong on 05-08-2023 Ketones Ql (U) Negative Negative [facility] Laboratory - Chemistry and C hemistry - challengeOrdered By: Davis Armstrong on 05-08-2023 Albumin/Globulin [Mass ratio] 1.1 {ratio} 0.9-2.4 [facility] ALP [Catalytic activity/Vol] 99 U/L 45-117 [facility] ALT [Catalytic activity/Vol] 18 U/L 16-61 [facility] Cholesterol in HDL [Mass/Vol] 58 mg/dL >40 [facility] Comment on above: The drugs N-Acetylcy steine and Metamizole may falsely depress this assay. Reference Range HDL <40 mg/dL Low HDL Cholesterol HDL >or= 60 mg/dL High HDL Cholesterol Cholesterol in LDL [Mass/Vol] 62 mg/dL 0-130 [facility] CO2 [Moles/Vol] 24.0 mmol/L 21.0-32.0 [facility] Globulin (S) [Mass/Vol] 3.4 g/dL 2.2-4.2 [facility] Magnesium [Mass/Vol] 2.0 mg/dL 1.6-2.6 [facility] Urea nitrogen/Creatinine [Mass ratio] 26.6 mg/mg 10-20 [facility] Laboratory - Hematology and Cell countsOrdered By: Davis Armstrong on 05-08-2023 MCH (RBC) [Entitic mass] 31.0 pg 27.0-32.0 [facility] MCHC (RBC) [Mass/Vol] 33.9 g/dL 32-36 [facility] Nucleated RBC/100 WBC (Bld) [Ratio] 0 % 0-5 [facility] Platelet mean volume (Bld) [Entitic vol] 9.9 fL 6.2-12.0 [facility] Platelets (Bld) [#/Vol] 265 10*3/uL 150-450 [facility] Nitrite Test strip Ql (U)Ord ered By: Davis Armstrong on 05-08-2023 Nitrite Ql (U) Negative Negative [facility] No Panel InformationOrdered By: Davis Armstrong on 05-08-2023 Estimated GFR (MDRD) Amer 139 mL/min >60 [facility] Comment on above: GFR Calc Estimated GFR (MDRD) Non-Af Amer 115 mL/min >60 [facility] Comment on above: Non- GFR Calc VLDL Cholesterol 19 mg/dL 5-40 [facility] Protein Test strip Ql (U)Ord ered By: Davis Armstrong on 05-08-2023 Protein Ql (U) 15 mg/dl Negative [facility] RBC Auto (Bld) [#/Vol]Ordere d By: Davis Armstrong on 05-08-2023 RBC (Bld) [#/Vol] 4.48 10*6/uL 4.6-6.2 [facility] Serum or plasma calcium ash urement (mass/volume)Ordered By: Davis Armstrong on 05-08-2023 Calcium [Mass/Vol] 9.1 mg/dL 8.5-10.1 [facility] Serum or plasma creatinine m easurement (mass/volume)Ordered By: Davis Armstrong on 05-08-2023 Creatinine [Mass/Vol] 0.71 mg/dL 0.70-1.30 [facility] Comment on above: The validity of the calculated GFR & GFRAA in patients over 70 years has not been determined. Clinical correlation is essential. Serum or plasma thyroid stim ulating hormone (TSH) measurement (units/volume)Ordered By: Davis Armstrong on 05-08-2023 TSH Qn 2.31 uIU/mL 0.358-3.74 [facility] Serum or plasma urea nitroge n measurement (mass/volume)Ordered By: Davis Armstrong on 05-08-2023 Urea nitrogen [Mass/Vol] 19 mg/dL 7-18 [facility] Thin prep Papanicolaou smear with manual screeningOrdered By: Davis Armstrong on 05-08-2023 Thin prep Papanicolaou smear with manual screening 3.9 g/dL 3.2-5.0 [facility] Thin prep Papanicolaou smear with manual screening 17 U/L 15-37 [facility] Thin prep Papanicolaou smear with manual screening 3 5-15 [facility] Urine blood detectionOrdered By: Davis Armstrong on 05-08-2023 RBC Ql (U) 10 /ul Negative [facility] Urine clarityOrdered By: Jarek Armstrong on 05-08-2023 Clarity (U) Clear Clear [facility] Urine color determinationOrd ered By: Davis Armstrong on 05-08-2023 Color (U) Straw Yellow [facility] Urine glucose detectionOrder ed By: Davis Armstrong on 05-08-2023 Glucose Ql (U) Normal mg/dl Normal [facility] Urine leukocyte esterase det ection by dipstickOrdered By: Davis Armstrong on 05-08-2023 Leukocyte esterase Test strip Ql (U) Negative Negative [facility] Urine pHOrdered By: Davis waterman on 05-08-2023 pH (U) 6.0 [pH] 5.0 - 8.0 [facility] Urine specific gravity measu rementOrdered By: Davis Armstrong on 05-08-2023 Specific gravity (U) [Rel density] 1.015 1.002-1.030 [facility] Urine urobilinogen measureme ntOrdered By: Davis Armstrong on 05-08-2023 Urobilinogen Ql (U) Normal mg/dl Normal [facility] Whole blood hemoglobin A1c/t otal hemoglobin ratio (mass fraction)Ordered By: Davis Armstrong on 05-08-2023 HbA1c (Bld) [Mass fraction] 6.3 % 3.8-5.6 [facility] Comment on above: Normal < 5.7 % Predi abetic 5.7 - 6.4 % Diabetic >or= 6.5 % Please note range changes. No Panel InformationOrdered By: Davis Armstrong on 01-08-2023 Prostate Specific Antigen Screen 1.48 ng/mL 0.00-4.00 [facility] Comment on above: This test was perfor med using the TPSA assay method [facility]. Values obtained with differentassay methods cannot be used interchangably.When changing PSA assays in the course of monitoring apatient, additional sequential testing should be carriedout to confirm baseline values. Absolute lymphocyte countOrd ered By: Dane Sterling on 12-27-2022 Lymphocytes Auto (Unsp spec) [#/Vol] 0.82 10*3/uL 0.83-4.51 [facility] Basophil percentageOrdered B y: Dane Sterling on 12-27-2022 Basophils/100 WBC (Bld) 1.1 % 0-1 [facility] Chloride [Moles/Vol] 108 mmol/L 98-107 [facility] Eosinophils/100 WBC (Bld) 4.0 % 0-5 [facility] Glucose [Mass/Vol] 108 mg/dL 74-106 [facility] Comment on above: Fasting Glucose resu lt from 100 to 125 mg/dL suggests IMPAIRED HOMEOSTASIS per A.D.A. criteria. Neutrophils (Bld) [#/Vol] 3.6 10*3/uL 2.0-7.7 [facility] Neutrophils/100 WBC (Bld) 68.5 % 47-70 [facility] Potassium [Moles/Vol] 3.4 mmol/L 3.5-5.1 [facility] Sodium [Moles/Vol] 138 mmol/L 136-145 [facility] WBC (Bld) [#/Vol] 5.2 10*3/uL 4.4-11.0 [facility] Blood erythrocytes count (nu mber/volume)Ordered By: Dane Sterling on 12-27-2022 RBC (Bld) [#/Vol] 4.41 10*6/uL 4.6-6.2 [facility] Blood hemoglobin measurement (mass/volume)Ordered By: Dane Sterling on 12-27-2022 Hemoglobin (Bld) [Mass/Vol] 13.5 g/dL 13.0-16.5 [facility] Blood lymphocytes/100 leukoc ytesOrdered By: Dane Sterling on 12-27-2022 Lymphocytes/100 WBC (Bld) 15.7 % 19-41 [facility] Blood monocytes/100 leukocyt esOrdered By: Dane Sterling on 12-27-2022 Monocytes/100 WBC (Bld) 10.3 % 0-10 [facility] Blood platelet mean volumeOr dered By: Dane Sterling on 12-27-2022 Platelet mean volume (Bld) [Entitic vol] 10.1 fL 6.2-12.0 [facility] Determination of erythrocyte mean corpuscular volume (MCV)Ordered By: Dane Sterling on 12-27-2022 MCV (RBC) [Entitic vol] 92.7 fL 80-94 [facility] Hematocrit Auto (Bld) [Volum e fraction]Ordered By: Dane Sterling on 12-27-2022 Hematocrit (Bld) [Volume fraction] 40.9 % 40-54 [facility] Laboratory - Chemistry and C hemistry - challengeOrdered By: Dane Sterling on 12-27-2022 CO2 [Moles/Vol] 27.0 mmol/L 21.0-32.0 [facility] Urea nitrogen/Creatinine [Mass ratio] 23.6 mg/mg 10-20 [facility] Laboratory - Hematology and Cell countsOrdered By: Dane Sterling on 12-27-2022 Erythrocyte distribution width (RBC) [Entitic vol] 42.6 fL 35.1-43.9 [facility] Erythrocyte distribution width (RBC) [Ratio] 12.5 % 11.6-14.6 [facility] Immature granulocytes/100 WBC (Bld) 0.400 % 0.0-0.9 [facility] Comment on above: IG% - Immature Granu locytes (promyelocytes, myelocytes and metamyelocytes) > 1% indicates that a LEFT SHIFT is Present. MCH (RBC) [Entitic mass] 30.6 pg 27.0-32.0 [facility] Nucleated RBC/100 WBC (Bld) [Ratio] 0 % 0-5 [facility] MCHC Auto (RBC) [Mass/Vol]Or dered By: Dane Sterling on 12-27-2022 MCHC (RBC) [Mass/Vol] 33.0 g/dL 32-36 [facility] No Panel InformationOrdered By: Dane Sterling on 12-27-2022 D-Dimer Quantitative (PE/DVT) 0.56 FEU/ug/m 0.27-0.49 [facility] Comment on above: D-Dimer ELEVATED (>0 .49): Additional studies and clinicalassessments are indicated to conclude diagnosis of:Deep Vein Thrombosis (DVT) or Pulmonary Embolism (PE)CRITICAL VALUE VERIFIED. CALLED TO TRAM GRANADOS (ER)12/27/22 0857 [address] [place].RESULTS READ BACK BY SAME. Estimated Creatinine Clearance Calc 79.18 ml/min [facility] Estimated GFR (MDRD) Amer 121 mL/min >60 [facility] Comment on above: GFR Calc Estimated GFR (MDRD) Non-Af Amer 100 mL/min >60 [facility] Comment on above: Non- GFR Calc Troponin I High Sensitivity 8 pg/mL 3.0-78.0 [facility] Comment on above: Please Note: New Candie t Units and Gender Specific Reference Ranges. For more information see Policy Stat Procedure [place] High Sensitivity Troponin (TNIH) and attachments. Platelets bldOrdered By: Cody Sterling on 12-27-2022 Platelets (Bld) [#/Vol] 235 10*3/uL 150-450 [facility] Serum or plasma calcium ash urement (mass/volume)Ordered By: Dane Sterling on 12-27-2022 Calcium [Mass/Vol] 8.6 mg/dL 8.5-10.1 [facility] Serum or plasma creatinine m easurement (mass/volume)Ordered By: Dane Sterling on 12-27-2022 Creatinine [Mass/Vol] 0.80 mg/dL 0.70-1.30 [facility] Comment on above: The validity of the calculated GFR & GFRAA in patients over 70 years has not been determined. Clinical correlation is essential. Serum or plasma urea nitroge n measurement (mass/volume)Ordered By: Dane Sterling on 12-27-2022 Urea nitrogen [Mass/Vol] 19 mg/dL 7-18 [facility] Thin prep Papanicolaou smear with manual screeningOrdered By: Dane Sterling on 12-27-2022 Thin prep Papanicolaou smear with manual screening 3 5-15 [facility] Absolute lymphocyte countOrd ered By: Davis Armstrong on 10-08-2022 Lymphocytes Auto (Unsp spec) [#/Vol] 0.65 10*3/uL 0.83-4.51 [facility] Basophil percentageOrdered B y: Davis Armstrong on 10-08-2022 Basophil percentage 0 SEEN /hpf 0-5 [facility] Basophils/100 WBC (Bld) 0.8 % 0-1 [facility] Bilirubin [Mass/Vol] 0.90 mg/dL 0.20-1.00 [facility] Comment on above: For patients on eltr ombopag therapy, use of Dimension [place] TBIL is not recommended. Chloride [Moles/Vol] 109 mmol/L 98-107 [facility] Cholesterol [Mass/Vol] 136 mg/dL <200 [facility] Comment on above: <200 mg/dL Desirable 200-240 mg/dL Borderline >240 mg/dL High Risk Eosinophils/100 WBC (Bld) 1.6 % 0-5 [facility] Glucose [Mass/Vol] 103 mg/dL 74-106 [facility] Comment on above: Fasting Glucose resu lt from 100 to 125 mg/dL suggests IMPAIRED HOMEOSTASIS per A.D.A. criteria. Neutrophils (Bld) [#/Vol] 3.7 10*3/uL 2.0-7.7 [facility] Neutrophils/100 WBC (Bld) 75.3 % 47-70 [facility] Potassium [Moles/Vol] 3.6 mmol/L 3.5-5.1 [facility] Protein [Mass/Vol] 7.2 g/dL 6.4-8.2 [facility] Sodium [Moles/Vol] 138 mmol/L 136-145 [facility] Triglyceride [Mass/Vol] 65 mg/dL <199 [facility] Comment on above: The drugs N-Acetylcy steine and Metamizole may falsely depress this assay.Serum Triglycerides Reference Interval Normal <150 mg/dL Borderline high 150 - 199 mg/dL High 200 - 499 mg/dL Very High > or = 500 mg/dL WBC (Bld) [#/Vol] 4.9 10*3/uL 4.4-11.0 [facility] Bilirubin Test strip Ql (U)O rdered By: Davis Armstrong on 10-08-2022 Bilirubin Ql (U) Negative Negative [facility] Blood erythrocytes count (nu mber/volume)Ordered By: Davis Armstrong on 10-08-2022 RBC (Bld) [#/Vol] 4.49 10*6/uL 4.6-6.2 [facility] Blood hemoglobin measurement (mass/volume)Ordered By: Davis Armstrong on 10-08-2022 Hemoglobin (Bld) [Mass/Vol] 13.8 g/dL 13.0-16.5 [facility] Blood lymphocytes/100 leukoc ytesOrdered By: Davis Armstrong on 10-08-2022 Lymphocytes/100 WBC (Bld) 13.2 % 19-41 [facility] Blood monocytes/100 leukocyt esOrdered By: Davis Armstrong on 10-08-2022 Monocytes/100 WBC (Bld) 8.9 % 0-10 [facility] Blood platelet mean volumeOr dered By: Davis Armstrong on 10-08-2022 Platelet mean volume (Bld) [Entitic vol] 10.9 fL 6.2-12.0 [facility] Determination of erythrocyte mean corpuscular volume (MCV)Ordered By: Davis Armstrong on 10-08-2022 MCV (RBC) [Entitic vol] 92.2 fL 80-94 [facility] Hematocrit Auto (Bld) [Volum e fraction]Ordered By: Davis Armstrong on 10-08-2022 Hematocrit (Bld) [Volume fraction] 41.4 % 40-54 [facility] Iron measurement (mass/mass) Ordered By: Davis Armstrong on 10-08-2022 Iron (Unsp spec) [Mass/Mass] 83 ug/dL 65-175 [facility] Ketones Test strip Ql (U)Ord ered By: Davis Armstrong on 10-08-2022 Ketones Ql (U) Negative Negative [facility] Laboratory - Chemistry and C hemistry - challengeOrdered By: Davis Armstrong on 10-08-2022 ALP [Catalytic activity/Vol] 89 U/L 45-117 [facility] ALT [Catalytic activity/Vol] 20 U/L 16-61 [facility] CO2 [Moles/Vol] 24.0 mmol/L 21.0-32.0 [facility] Cobalamin (Vitamin B12) [Mass/Vol] 393 pg/mL 211-911 [facility] Globulin (S) [Mass/Vol] 3.4 g/dL 2.2-4.2 [facility] Urea nitrogen/Creatinine [Mass ratio] 24.4 mg/mg 10-20 [facility] Laboratory - Hematology and Cell countsOrdered By: Davis Armstrong on 10-08-2022 Erythrocyte distribution width (RBC) [Entitic vol] 42.4 fL 35.1-43.9 [facility] Erythrocyte distribution width (RBC) [Ratio] 12.4 % 11.6-14.6 [facility] Immature granulocytes/100 WBC (Bld) 0.200 % 0.0-0.9 [facility] Comment on above: IG% - Immature Granu locytes (promyelocytes, myelocytes and metamyelocytes) > 1% indicates that a LEFT SHIFT is Present. MCH (RBC) [Entitic mass] 30.7 pg 27.0-32.0 [facility] Nucleated RBC/100 WBC (Bld) [Ratio] 0 % 0-5 [facility] MCHC Auto (RBC) [Mass/Vol]Or dered By: Davis Armstrong on 10-08-2022 MCHC (RBC) [Mass/Vol] 33.3 g/dL 32-36 [facility] Mucus LM Ql (Urine sed)Order ed By: Davis Armstrong on 10-08-2022 Mucus Ql (Urine sed) 0 SEEN /hpf [facility] Nitrite Test strip Ql (U)Ord ered By: Davis Armstrong on 10-08-2022 Nitrite Ql (U) Negative Negative [facility] No Panel InformationOrdered By: Davis Armstrong on 10-08-2022 Estimated GFR (MDRD) Amer 154 mL/min >60 [facility] Comment on above: GFR Calc Estimated GFR (MDRD) Non-Af Amer 127 mL/min >60 [facility] Comment on above: Non- GFR Calc Thyroid Stimulating Hormone (TSH) 2.06 uIU/mL 0.358-3.74 [facility] Total Iron Binding Capacity 349 ug/dL 250-450 [facility] Platelets bldOrdered By: Jarek Armstrong on 10-08-2022 Platelets (Bld) [#/Vol] 213 10*3/uL 150-450 [facility] Protein Test strip Ql (U)Ord ered By: Davis Armstrong on 10-08-2022 Protein Ql (U) Negative Negative [facility] Serum or plasma albumin ash urement (mass/volume)Ordered By: Davis Armstrong on 10-08-2022 Albumin [Mass/Vol] 3.8 g/dL 3.2-5.0 [facility] Serum or plasma albumin/glob ulin mass ratioOrdered By: Davis Armstrong on 10-08-2022 Albumin/Globulin [Mass ratio] 1.1 {ratio} 0.9-2.4 [facility] Serum or plasma calcium ash urement (mass/volume)Ordered By: Davis Armstrong on 10-08-2022 Calcium [Mass/Vol] 8.8 mg/dL 8.5-10.1 [facility] Serum or plasma cholesterol in HDL measurement (mass/volume)Ordered By: Davis Armstrong on 10-08-2022 Cholesterol in HDL [Mass/Vol] 58 mg/dL >40 [facility] Comment on above: The drugs N-Acetylcy steine and Metamizole may falsely depress this assay. Reference Range HDL <40 mg/dL Low HDL Cholesterol HDL >or= 60 mg/dL High HDL Cholesterol Serum or plasma cholesterol in VLDL measurement (mass/volume)Ordered By: Davis Armstrong on 10-08-2022 Cholesterol in VLDL [Mass/Vol] 13 mg/dL 5-40 [facility] Serum or plasma creatinine m easurement (mass/volume)Ordered By: Davis Armstrong on 10-08-2022 Creatinine [Mass/Vol] 0.66 mg/dL 0.70-1.30 [facility] Comment on above: The validity of the calculated GFR & GFRAA in patients over 70 years has not been determined. Clinical correlation is essential. Serum or plasma ferritin elham surement (mass/volume)Ordered By: Davis Armstrong on 10-08-2022 Ferritin [Mass/Vol] 187 ng/mL 26-388 [facility] Serum or plasma folate measu rement (mass/volume)Ordered By: Davis Armstrong on 10-08-2022 Folate [Mass/Vol] 10.00 ng/mL 3.1-55.4 [facility] Serum or plasma low density lipoprotein (LDL) cholesterol measurement (mass/volume)Ordered By: Davis Armstrong on 10-08-2022 Cholesterol in LDL [Mass/Vol] 65 mg/dL 0-130 [facility] Serum or plasma urea nitroge n measurement (mass/volume)Ordered By: Davis Armstrong on 10-08-2022 Urea nitrogen [Mass/Vol] 16 mg/dL 7-18 [facility] Squamous epithelial cells de tection in urine sediment by light microscopyOrdered By: Davis Armstrong on 10-08-2022 Epithelial cells.squamous LM Ql (Urine sed) 0 SEEN /hpf 0-5 [facility] Thin prep Papanicolaou smear with manual screeningOrdered By: Davis Armstrong on 10-08-2022 Thin prep Papanicolaou smear with manual screening 24 U/L 15-37 [facility] Thin prep Papanicolaou smear with manual screening 5 5-15 [facility] Urine blood detectionOrdered By: Davis Armstrong on 10-08-2022 RBC Ql (U) Negative Negative [facility] RBC Ql (U) 0 SEEN /hpf 0-5 [facility] Urine clarityOrdered By: Jarek Armstrong on 10-08-2022 Clarity (U) Clear Clear [facility] Urine color determinationOrd ered By: Davis Armstrong on 10-08-2022 Color (U) Straw Yellow [facility] Urine glucose detectionOrder ed By: Davis Armstrong on 10-08-2022 Glucose Ql (U) Normal mg/dl Normal [facility] Urine leukocyte esterase det ection by dipstickOrdered By: Davis Armstrong on 10-08-2022 Leukocyte esterase Test strip Ql (U) Negative Negative [facility] Urine pHOrdered By: Davis waterman on 10-08-2022 pH (U) 7.0 [pH] 5.0 - 8.0 [facility] Urine sediment bacteria coun t by microscopy (number/high power field)Ordered By: Davis Armstrong on 10-08-2022 Bacteria LM.HPF (Urine sed) [#/Area] 0 /[HPF] None Seen [facility] Urine specific gravity measu rementOrdered By: Davis Armstrong on 10-08-2022 Specific gravity (U) [Rel density] 1.010 1.002-1.030 [facility] Urobilinogen Auto test strip Ql (U)Ordered By: Davis Armstrong on 10-08-2022 Urobilinogen Ql (U) Normal mg/dl Normal [facility] Whole blood hemoglobin A1c/t otal hemoglobin ratio (mass fraction)Ordered By: Davis Armstrong on 10-08-2022 HbA1c (Bld) [Mass fraction] 6.1 % 3.8-5.6 [facility] Comment on above: Normal < 5.7 % Predi abetic 5.7 - 6.4 % Diabetic >or= 6.5 % Please note range changes. Basophil percentageOrdered B y: Dr. Mayes on 03-28-2022 Chloride [Moles/Vol] 107 mmol/L 98-107 [facility] Glucose [Mass/Vol] 92 mg/dL 74-106 [facility] Potassium [Moles/Vol] 3.7 mmol/L 3.5-5.1 [facility] Sodium [Moles/Vol] 140 mmol/L 136-145 [facility] WBC (Bld) [#/Vol] 5.3 10*3/uL 4.4-11.0 [facility] Blood erythrocytes count (nu mber/volume)Ordered By: Dr. Mayes on 03-28-2022 RBC (Bld) [#/Vol] 4.32 10*6/uL 4.6-6.2 [facility] Blood hemoglobin measurement (mass/volume)Ordered By: Dr. Mayes on 03-28-2022 Hemoglobin (Bld) [Mass/Vol] 13.2 g/dL 13.0-16.5 [facility] Blood platelet mean volumeOr dered By: Dr. Mayes on 03-28-2022 Platelet mean volume (Bld) [Entitic vol] 10.8 fL 6.2-12.0 [facility] Determination of erythrocyte mean corpuscular volume (MCV)Ordered By: Dr. Mayes on 03-28-2022 MCV (RBC) [Entitic vol] 92.4 fL 80-94 [facility] Hematocrit Auto (Bld) [Volum e fraction]Ordered By: Dr. Mayes on 03-28-2022 Hematocrit (Bld) [Volume fraction] 39.9 % 40-54 [facility] Laboratory - Chemistry and C hemistry - challengeOrdered By: Dr. Mayes on 03-28-2022 CO2 [Moles/Vol] 26.0 mmol/L 21.0-32.0 [facility] Urea nitrogen/Creatinine [Mass ratio] 25.2 mg/mg 10-20 [facility] Laboratory - Hematology and Cell countsOrdered By: Dr. Mayes on 03-28-2022 Erythrocyte distribution width (RBC) [Entitic vol] 43.5 fL 35.1-43.9 [facility] Erythrocyte distribution width (RBC) [Ratio] 13.0 % 11.6-14.6 [facility] MCH (RBC) [Entitic mass] 30.6 pg 27.0-32.0 [facility] MCHC Auto (RBC) [Mass/Vol]Or dered By: Dr. Mayes on 03-28-2022 MCHC (RBC) [Mass/Vol] 33.1 g/dL 32-36 [facility] No Panel InformationOrdered By: Dr. Mayes on 03-28-2022 Estimated GFR (MDRD) Amer 140 mL/min >60 [facility] Comment on above: GFR Calc Estimated GFR (MDRD) Non-Af Amer 116 mL/min >60 [facility] Comment on above: Non- GFR Calc Platelets bldOrdered By: Dr. Mayes on 03-28-2022 Platelets (Bld) [#/Vol] 233 10*3/uL 150-450 [facility] Serum or plasma calcium ash urement (mass/volume)Ordered By: Dr. Mayes on 03-28-2022 Calcium [Mass/Vol] 8.8 mg/dL 8.5-10.1 [facility] Serum or plasma creatinine m easurement (mass/volume)Ordered By: Dr. Mayes on 03-28-2022 Creatinine [Mass/Vol] 0.71 mg/dL 0.70-1.30 [facility] Comment on above: The validity of the calculated GFR & GFRAA in patients over 70 years has not been determined. Clinical correlation is essential. Serum or plasma urea nitroge n measurement (mass/volume)Ordered By: Dr. Mayes on 03-28-2022 Urea nitrogen [Mass/Vol] 18 mg/dL 7-18 [facility] Thin prep Papanicolaou smear with manual screeningOrdered By: Dr. Mayes on 03-28-2022 Thin prep Papanicolaou smear with manual screening 7 5-15 [facility] Absolute lymphocyte countOrd ered By: Dr. Hatch on 01-16-2022 Lymphocytes Auto (Unsp spec) [#/Vol] 0.63 10*3/uL 0.83-4.51 [facility] Basophil percentageOrdered B y: Dr. Hatch on 01-16-2022 Basophil percentage 10-25 SEEN /hpf 0-5 [facility] Basophils/100 WBC (Bld) 0.6 % 0-1 [facility] Chloride [Moles/Vol] 106 mmol/L 98-107 [facility] Eosinophils/100 WBC (Bld) 0.6 % 0-5 [facility] Glucose [Mass/Vol] 153 mg/dL 74-106 [facility] Comment on above: Fasting Glucose resu lt greater than or equal to 126 mg/dL suggests DIABETES MELLITUS per A.D.A. criteria. Neutrophils (Bld) [#/Vol] 6.6 10*3/uL 2.0-7.7 [facility] Neutrophils/100 WBC (Bld) 83.2 % 47-70 [facility] Potassium [Moles/Vol] 3.3 mmol/L 3.5-5.1 [facility] Sodium [Moles/Vol] 137 mmol/L 136-145 [facility] WBC (Bld) [#/Vol] 7.9 10*3/uL 4.4-11.0 [facility] Bilirubin Test strip Ql (U)O rdered By: Dr. Hatch on 01-16-2022 Bilirubin Ql (U) Negative Negative [facility] Blood erythrocytes count (nu mber/volume)Ordered By: Dr. Hatch on 01-16-2022 RBC (Bld) [#/Vol] 4.32 10*6/uL 4.6-6.2 [facility] Blood hemoglobin measurement (mass/volume)Ordered By: Dr. Hatch on 01-16-2022 Hemoglobin (Bld) [Mass/Vol] 13.4 g/dL 13.0-16.5 [facility] Blood lymphocytes/100 leukoc ytesOrdered By: Dr. Hatch on 01-16-2022 Lymphocytes/100 WBC (Bld) 8.0 % 19-41 [facility] Blood monocytes/100 leukocyt esOrdered By: Dr. Hatch on 01-16-2022 Monocytes/100 WBC (Bld) 7.2 % 0-10 [facility] Blood platelet mean volumeOr dered By: Dr. Hatch on 01-16-2022 Platelet mean volume (Bld) [Entitic vol] 10.3 fL 6.2-12.0 [facility] Determination of erythrocyte mean corpuscular volume (MCV)Ordered By: Dr. Hatch on 01-16-2022 MCV (RBC) [Entitic vol] 91.4 fL 80-94 [facility] Glucose Glucometer (BldC) [M ass/Vol]Ordered By: Dr. Mayes on 01-16-2022 Glucose [Mass/Vol] 111 mg/dL 74-106 [facility] Comment on above: MANAGEMENT OF PATIEN T CARE PER NURSING PROTOCOL Hematocrit Auto (Bld) [Volum e fraction]Ordered By: Dr. Hatch on 01-16-2022 Hematocrit (Bld) [Volume fraction] 39.5 % 40-54 [facility] Ketones Test strip Ql (U)Ord ered By: Dr. Hatch on 01-16-2022 Ketones Ql (U) Negative Negative [facility] Laboratory - Chemistry and C hemistry - challengeOrdered By: Dr. Hatch on 01-16-2022 CO2 [Moles/Vol] 25.0 mmol/L 21.0-32.0 [facility] Urea nitrogen/Creatinine [Mass ratio] 23.4 mg/mg 10-20 [facility] Laboratory - Hematology and Cell countsOrdered By: Dr. Hatch on 01-16-2022 Erythrocyte distribution width (RBC) [Entitic vol] 42.2 fL 35.1-43.9 [facility] Erythrocyte distribution width (RBC) [Ratio] 12.7 % 11.6-14.6 [facility] Immature granulocytes/100 WBC (Bld) 0.400 % 0.0-0.9 [facility] Comment on above: IG% - Immature Granu locytes (promyelocytes, myelocytes and metamyelocytes) > 1% indicates that a LEFT SHIFT is Present. MCH (RBC) [Entitic mass] 31.0 pg 27.0-32.0 [facility] Nucleated RBC/100 WBC (Bld) [Ratio] 0 % 0-5 [facility] MCHC Auto (RBC) [Mass/Vol]Or dered By: Dr. Hatch on 01-16-2022 MCHC (RBC) [Mass/Vol] 33.9 g/dL 32-36 [facility] Mucus LM Ql (Urine sed)Order ed By: Dr. Hatch on 01-16-2022 Mucus Ql (Urine sed) 0 SEEN /hpf [facility] Nitrite Test strip Ql (U)Ord ered By: Dr. Hatch on 01-16-2022 Nitrite Ql (U) Negative Negative [facility] No Panel InformationOrdered By: Dr. Hatch on 01-16-2022 Estimated Creatinine Clearance Calc 70.38 ml/min [facility] Estimated GFR (MDRD) Amer 107 mL/min >60 [facility] Comment on above: GFR Calc Estimated GFR (MDRD) Non-Af Amer 89 mL/min >60 [facility] Comment on above: Non- GFR Calc Platelets bldOrdered By: Dr. Hatch on 01-16-2022 Platelets (Bld) [#/Vol] 236 10*3/uL 150-450 [facility] Protein Test strip Ql (U)Ord ered By: Dr. Hatch on 01-16-2022 Protein Ql (U) 500 mg/dl Negative [facility] Serum or plasma calcium ash urement (mass/volume)Ordered By: Dr. Hatch on 01-16-2022 Calcium [Mass/Vol] 8.5 mg/dL 8.5-10.1 [facility] Serum or plasma creatinine m easurement (mass/volume)Ordered By: Dr. Hatch on 01-16-2022 Creatinine [Mass/Vol] 0.90 mg/dL 0.70-1.30 [facility] Comment on above: The validity of the calculated GFR & GFRAA in patients over 70 years has not been determined. Clinical correlation is essential. Serum or plasma urea nitroge n measurement (mass/volume)Ordered By: Dr. Hatch on 01-16-2022 Urea nitrogen [Mass/Vol] 21 mg/dL 7-18 [facility] Squamous epithelial cells de tection in urine sediment by light microscopyOrdered By: Dr. Hatch on 01-16-2022 Epithelial cells.squamous LM Ql (Urine sed) 0 SEEN /hpf 0-5 [facility] Thin prep Papanicolaou smear with manual screeningOrdered By: Dr. Hatch on 01-16-2022 Thin prep Papanicolaou smear with manual screening 6 5-15 [facility] Urine blood detectionOrdered By: Dr. Hatch on 01-16-2022 RBC Ql (U) 250 /ul Negative [facility] RBC Ql (U) > 100 SEEN /hpf 0-5 [facility] Urine clarityOrdered By: Dr. Hatch on 01-16-2022 Clarity (U) Turbid Clear [facility] Urine color determinationOrd ered By: Dr. Hatch on 01-16-2022 Color (U) Red Yellow [facility] Urine glucose detectionOrder ed By: Dr. Hatch on 01-16-2022 Glucose Ql (U) 50 mg/dl Normal [facility] Urine leukocyte esterase det ection by dipstickOrdered By: Dr. Hatch on 01-16-2022 Leukocyte esterase Test strip Ql (U) 25 /ul Negative [facility] Urine pHOrdered By: Dr. Lawson wu on 01-16-2022 pH (U) 7.0 [pH] 5.0 - 8.0 [facility] Urine sediment bacteria coun t by microscopy (number/high power field)Ordered By: Dr. Hatch on 01-16-2022 Bacteria LM.HPF (Urine sed) [#/Area] 0 /[HPF] None Seen [facility] Urine specific gravity measu rementOrdered By: Dr. Hatch on 01-16-2022 Specific gravity (U) [Rel density] 1.010 1.002-1.030 [facility] Urobilinogen Auto test strip Ql (U)Ordered By: Dr. Hatch on 01-16-2022 Urobilinogen Ql (U) Normal mg/dl Normal [facility] Glucose Glucometer (BldC) [M ass/Vol]Ordered By: Dr. Mayes on 12-19-2021 Glucose [Mass/Vol] 99 mg/dL 74-106 [facility] Comment on above: MANAGEMENT OF PATIEN T CARE PER NURSING PROTOCOL Absolute lymphocyte countOrd ered By: Dr. Armstrong on 12-18-2021 Lymphocytes Auto (Unsp spec) [#/Vol] 0.70 10*3/uL 0.83-4.51 [facility] Basophil percentageOrdered B y: Dr. Armstrong on 12-18-2021 Basophils/100 WBC (Bld) 0.6 % 0-1 [facility] Bilirubin [Mass/Vol] 1.00 mg/dL 0.20-1.00 [facility] Comment on above: For patients on eltr ombopag therapy, use of Dim[place] TBIL is not recommended. Chloride [Moles/Vol] 107 mmol/L 98-107 [facility] Cholesterol [Mass/Vol] 120 mg/dL <200 [facility] Comment on above: <200 mg/dL Desirable 200-240 mg/dL Borderline >240 mg/dL High Risk Eosinophils/100 WBC (Bld) 0.7 % 0-5 [facility] Glucose [Mass/Vol] 95 mg/dL 74-106 [facility] Neutrophils (Bld) [#/Vol] 9.0 10*3/uL 2.0-7.7 [facility] Neutrophils/100 WBC (Bld) 84.2 % 47-70 [facility] Potassium [Moles/Vol] 3.7 mmol/L 3.5-5.1 [facility] Protein [Mass/Vol] 7.0 g/dL 6.4-8.2 [facility] Sodium [Moles/Vol] 139 mmol/L 136-145 [facility] Triglyceride [Mass/Vol] 53 mg/dL <199 [facility] Comment on above: The drugs N-Acetylcy steine and Metamizole may falsely depress this assay.Serum Triglycerides Reference Interval Normal <150 mg/dL Borderline high 150 - 199 mg/dL High 200 - 499 mg/dL Very High > or = 500 mg/dL WBC (Bld) [#/Vol] 10.7 10*3/uL 4.4-11.0 [facility] Blood erythrocytes count (nu mber/volume)Ordered By: Dr. Armstrong on 12-18-2021 RBC (Bld) [#/Vol] 4.39 10*6/uL 4.6-6.2 [facility] Blood hemoglobin measurement (mass/volume)Ordered By: Dr. Armstrong on 12-18-2021 Hemoglobin (Bld) [Mass/Vol] 13.6 g/dL 13.0-16.5 [facility] Blood lymphocytes/100 leukoc ytesOrdered By: Dr. Armstrong on 12-18-2021 Lymphocytes/100 WBC (Bld) 6.6 % 19-41 [facility] Blood monocytes/100 leukocyt esOrdered By: Dr. Armstrong on 12-18-2021 Monocytes/100 WBC (Bld) 7.4 % 0-10 [facility] Blood platelet mean volumeOr dered By: Dr. Armstrong on 12-18-2021 Platelet mean volume (Bld) [Entitic vol] 11.0 fL 6.2-12.0 [facility] Determination of erythrocyte mean corpuscular volume (MCV)Ordered By: Dr. Armstrong on 12-18-2021 MCV (RBC) [Entitic vol] 92.7 fL 80-94 [facility] Hematocrit Auto (Bld) [Volum e fraction]Ordered By: Dr. Armstrong on 12-18-2021 Hematocrit (Bld) [Volume fraction] 40.7 % 40-54 [facility] Iron measurement (mass/mass) Ordered By: Dr. Armstrong on 12-18-2021 Iron (Unsp spec) [Mass/Mass] 32 ug/dL 65-175 [facility] Laboratory - Chemistry and C hemistry - challengeOrdered By: Dr. Armstrong on 12-18-2021 ALP [Catalytic activity/Vol] 79 U/L 45-117 [facility] ALT [Catalytic activity/Vol] 22 U/L 16-61 [facility] CO2 [Moles/Vol] 26.0 mmol/L 21.0-32.0 [facility] Cobalamin (Vitamin B12) [Mass/Vol] 534 pg/mL 211-911 [facility] Globulin (S) [Mass/Vol] 3.5 g/dL 2.2-4.2 [facility] Transferrin [Mass/Vol] 211 mg/dL 177-329 [facility] Comment on above: Performed at: [address] [id number] Director: Scooby Downs PhD, Phone: [phone] Urea nitrogen/Creatinine [Mass ratio] 23.4 mg/mg 10-20 [facility] Laboratory - Hematology and Cell countsOrdered By: Dr. Armstrong on 12-18-2021 Erythrocyte distribution width (RBC) [Entitic vol] 43.7 fL 35.1-43.9 [facility] Erythrocyte distribution width (RBC) [Ratio] 12.6 % 11.6-14.6 [facility] Immature granulocytes/100 WBC (Bld) 0.500 % 0.0-0.9 [facility] Comment on above: IG% - Immature Granu locytes (promyelocytes, myelocytes and metamyelocytes) > 1% indicates that a LEFT SHIFT is Present. MCH (RBC) [Entitic mass] 31.0 pg 27.0-32.0 [facility] Nucleated RBC/100 WBC (Bld) [Ratio] 0 % 0-5 [facility] MCHC Auto (RBC) [Mass/Vol]Or dered By: Dr. Armstrong on 12-18-2021 MCHC (RBC) [Mass/Vol] 33.4 g/dL 32-36 [facility] No Panel InformationOrdered By: Dr. Armstrong on 12-18-2021 Estimated GFR (MDRD) Amer 137 mL/min >60 [facility] Comment on above: GFR Calc Estimated GFR (MDRD) Non-Af Amer 114 mL/min >60 [facility] Comment on above: Non- GFR Calc Prostate Specific Antigen Screen 0.82 ng/mL 0.00-4.00 [facility] Comment on above: This test was perfor med using the TPSA assay method [facility]. Values obtained with differentassay methods cannot be used interchangably.When changing PSA assays in the course of monitoring apatient, additional sequential testing should be carriedout to confirm baseline values. Total Iron Binding Capacity 269 ug/dL 250-450 [facility] Platelets bldOrdered By: Dr. Armstrong on 12-18-2021 Platelets (Bld) [#/Vol] 262 10*3/uL 150-450 [facility] Serum or plasma albumin ash urement (mass/volume)Ordered By: Dr. Armstrong on 12-18-2021 Albumin [Mass/Vol] 3.5 g/dL 3.2-5.0 [facility] Serum or plasma albumin/glob ulin mass ratioOrdered By: Dr. Armstrong on 12-18-2021 Albumin/Globulin [Mass ratio] 1.0 {ratio} 0.9-2.4 [facility] Serum or plasma calcium ash urement (mass/volume)Ordered By: Dr. Armstrong on 12-18-2021 Calcium [Mass/Vol] 9.0 mg/dL 8.5-10.1 [facility] Serum or plasma cholesterol in HDL measurement (mass/volume)Ordered By: Dr. Armstrong on 12-18-2021 Cholesterol in HDL [Mass/Vol] 61 mg/dL >40 [facility] Comment on above: The drugs N-Acetylcy steine and Metamizole may falsely depress this assay. Reference Range HDL <40 mg/dL Low HDL Cholesterol HDL >or= 60 mg/dL High HDL Cholesterol Serum or plasma cholesterol in VLDL measurement (mass/volume)Ordered By: Dr. Armstrong on 12-18-2021 Cholesterol in VLDL [Mass/Vol] 11 mg/dL 5-40 [facility] Serum or plasma creatinine m easurement (mass/volume)Ordered By: Dr. Armstrong on 12-18-2021 Creatinine [Mass/Vol] 0.72 mg/dL 0.70-1.30 [facility] Comment on above: The validity of the calculated GFR & GFRAA in patients over 70 years has not been determined. Clinical correlation is essential. Serum or plasma ferritin elham surement (mass/volume)Ordered By: Dr. Armstrong on 12-18-2021 Ferritin [Mass/Vol] 339 ng/mL 26-388 [facility] Serum or plasma low density lipoprotein (LDL) cholesterol measurement (mass/volume)Ordered By: Dr. Armstrong on 12-18-2021 Cholesterol in LDL [Mass/Vol] 48 mg/dL 0-130 [facility] Serum or plasma urea nitroge n measurement (mass/volume)Ordered By: Dr. Armstrong on 12-18-2021 Urea nitrogen [Mass/Vol] 17 mg/dL 7-18 [facility] Thin prep Papanicolaou smear with manual screeningOrdered By: Dr. Armstrong on 12-18-2021 Thin prep Papanicolaou smear with manual screening 20 U/L 15-37 [facility] Thin prep Papanicolaou smear with manual screening 6 5-15 [facility] Whole blood hemoglobin A1c/t otal hemoglobin ratio (mass fraction)Ordered By: Dr. Armstrong on 12-18-2021 HbA1c (Bld) [Mass fraction] 6.1 % 3.8-5.6 [facility] Comment on above: Normal < 5.7 % Predi abetic 5.7 - 6.4 % Diabetic >or= 6.5 % Please note range changes. Absolute lymphocyte counton 12-02-2021 Lymphocytes Auto (Unsp spec) [#/Vol] 0.63 10*3/uL 0.83-4.51 [facility] Work Phone: Basophil percentageon 2021 Basophil percentage 0-5 SEEN /hpf 0-5 [facility] Work Phone: Basophils/100 WBC (Bld) 0.6 % 0-1 [facility] Work Phone: Bilirubin [Mass/Vol] 1.00 mg/dL 0.20-1.00 [facility] Work Phone: Comment on above: For patients on eltr ombopag therapy, use of [place] TBIL is not recommended. Chloride [Moles/Vol] 109 mmol/L 98-107 [facility] Work Phone: Eosinophils/100 WBC (Bld) 0.4 % 0-5 [facility] Work Phone: Glucose [Mass/Vol] 111 mg/dL 74-106 [facility] Work Phone: Comment on above: Fasting Glucose resu lt from 100 to 125 mg/dL suggests IMPAIRED HOMEOSTASIS per A.D.A. criteria. Neutrophils (Bld) [#/Vol] 9.1 10*3/uL 2.0-7.7 [facility] Work Phone: Neutrophils/100 WBC (Bld) 83.8 % 47-70 [facility] Work Phone: Potassium [Moles/Vol] 3.7 mmol/L 3.5-5.1 [facility] Work Phone: Protein [Mass/Vol] 7.2 g/dL 6.4-8.2 [facility] Work Phone: Sodium [Moles/Vol] 144 mmol/L 136-145 [facility] Work Phone: WBC (Bld) [#/Vol] 10.9 10*3/uL 4.4-11.0 [facility]: Bilirubin Test strip Ql (U)o n 12-02-2021 Bilirubin Ql (U) Negative Negative [facility] Work Phone: Blood erythrocytes count (nu mber/volume)on 12-02-2021 RBC (Bld) [#/Vol] 4.65 10*6/uL 4.6-6.2 [facility] Work Phone: Blood hemoglobin measurement (mass/volume)on 12-02-2021 Hemoglobin (Bld) [Mass/Vol] 14.4 g/dL 13.0-16.5 [facility] Work Phone: Blood lymphocytes/100 leukoc yteson 12-02-2021 Lymphocytes/100 WBC (Bld) 5.8 % 19-41 [facility] Work Phone: Blood monocytes/100 leukocyt eson 12-02-2021 Monocytes/100 WBC (Bld) 9.1 % 0-10 [facility] Work Phone: Blood platelet mean volumeon 12-02-2021 Platelet mean volume (Bld) [Entitic vol] 10.4 fL 6.2-12.0 [facility] Work Phone: Determination of erythrocyte mean corpuscular volume (MCV)on 12-02-2021 MCV (RBC) [Entitic vol] 94.2 fL 80-94 [facility] Work Phone: Hematocrit Auto (Bld) [Volum e fraction]on 12-02-2021 Hematocrit (Bld) [Volume fraction] 43.8 % 40-54 [facility] Work Phone: [phone] Ketones Test strip Ql (U)on 12-02-2021 Ketones Ql (U) Negative Negative [facility] Work Phone: [phone] Laboratory - Chemistry and C hemistry - challengeon 12-02-2021 ALP [Catalytic activity/Vol] 71 U/L 45-117 [facility] Work Phone: [phone] ALT [Catalytic activity/Vol] 21 U/L 16-61 [facility] Work Phone: [phone] CO2 [Moles/Vol] 27.0 mmol/L 21.0-32.0 [facility] Work Phone: [phone] Globulin (S) [Mass/Vol] 3.4 g/dL 2.2-4.2 [facility] Work Phone: [phone] Lipase [Catalytic activity/Vol] 112 U/L 73-393 [facility] Work Phone: [phone] Urea nitrogen/Creatinine [Mass ratio] 22.2 mg/mg 10-20 [facility] Work Phone: [phone] Laboratory - Hematology and Cell countson 12-02-2021 Erythrocyte distribution width (RBC) [Entitic vol] 44.7 fL 35.1-43.9 [facility] Work Phone: [phone] Erythrocyte distribution width (RBC) [Ratio] 13.1 % 11.6-14.6 [facility] Work Phone: [phone] Immature granulocytes/100 WBC (Bld) 0.300 % 0.0-0.9 [facility] Work Phone: [phone] Comment on above: IG% - Immature Granu locytes (promyelocytes, myelocytes and metamyelocytes) > 1% indicates that a LEFT SHIFT is Present. MCH (RBC) [Entitic mass] 31.0 pg 27.0-32.0 [facility] Work Phone: [phone] Nucleated RBC/100 WBC (Bld) [Ratio] 0 % 0-5 [facility] Work Phone: [phone] MCHC Auto (RBC) [Mass/Vol]on 12-02-2021 MCHC (RBC) [Mass/Vol] 32.9 g/dL 32-36 [facility] Work Phone: [phone] Mucus LM Ql (Urine sed)on Mucus Ql (Urine sed) 0 SEEN /hpf [facility] Work Phone: Nitrite Test strip Ql (U)on 12-02-2021 Nitrite Ql (U) Negative Negative [facility] Work Phone: [phone] No Panel Informationon 12-02 Estimated Creatinine Clearance Calc 51.00 ml/min [facility] Work Phone: [phone] Estimated GFR (MDRD) Amer 73 mL/min >60 [facility] Work Phone: [phone] Comment on above: GFR Calc Estimated GFR (MDRD) Non-Af Amer 60 mL/min >60 [facility] Work Phone: Comment on above: Non- GFR Calc Platelets bldon 12-02-2021 Platelets (Bld) [#/Vol] 216 10*3/uL 150-450 [facility] Work Phone: [phone] Protein Test strip Ql (U)on 12-02-2021 Protein Ql (U) 15 mg/dl Negative [facility] Work Phone: [phone] Serum or plasma albumin ash urement (mass/volume)on 12-02-2021 Albumin [Mass/Vol] 3.8 g/dL 3.2-5.0 [facility] Work Phone: [phone] Serum or plasma albumin/glob ulin mass ratioon 12-02-2021 Albumin/Globulin [Mass ratio] 1.1 {ratio} 0.9-2.4 [facility] Work Phone: [phone] Serum or plasma calcium ash urement (mass/volume)on 12-02-2021 Calcium [Mass/Vol] 9.2 mg/dL 8.5-10.1 [facility] Work Phone: [phone] Serum or plasma creatinine m easurement (mass/volume)on 12-02-2021 Creatinine [Mass/Vol] 1.26 mg/dL 0.70-1.30 [facility] Work Phone: Comment on above: The validity of the calculated GFR & GFRAA in patients over 70 years has not been determined. Clinical correlation is essential. Serum or plasma urea nitroge n measurement (mass/volume)on 12-02-2021 Urea nitrogen [Mass/Vol] 28 mg/dL -18 [facility] Work Phone: [phone] Squamous epithelial cells de tection in urine sediment by light microscopyon 12-02-2021 Epithelial cells.squamous LM Ql (Urine sed) 0 SEEN /hpf 0-5 [facility] Work Phone: Thin prep Papanicolaou smear with manual screeningon 12-02-2021 Thin prep Papanicolaou smear with manual screening 25 U/L 15-37 [facility] Work Phone: Thin prep Papanicolaou smear with manual screening 8 5-15 [facility] Work Phone: Urine blood detectionon 11-15 RBC Ql (U) 150 /ul Negative [facility] Work Phone: [phone] RBC Ql (U) 5-10 SEEN /hpf 0-5 [facility] Work Phone: [phone] Urine clarityon 12-02-2021 Clarity (U) Clear Clear [facility] Work Phone: Urine color determinationon 12-02-2021 Color (U) Yellow Yellow [facility] Work Phone: Urine glucose detectionon Glucose Ql (U) Normal mg/dl Normal [facility] Work Phone: [phone] Urine leukocyte esterase det ection by dipstickon 12-02-2021 Leukocyte esterase Test strip Ql (U) Negative Negative [facility] Work Phone: [phone] Urine pHon 12-02-2021 pH (U) 6.0 [pH] 5.0 - 8.0 [facility] Work Phone: [phone] Urine sediment bacteria coun t by microscopy (number/high power field)on 12-02-2021 Bacteria LM.HPF (Urine sed) [#/Area] RARE /hpf None Seen [facility] Work Phone: Urine specific gravity measu rementon 12-02-2021 Specific gravity (U) [Rel density] 1.015 1.002-1.030 [facility] Work Phone: Urobilinogen Auto test strip Ql (U)on 12-02-2021 Urobilinogen Ql (U) Normal mg/dl Normal [facility] Work Phone: Absolute lymphocyte counton 10-02-2021 Lymphocytes Auto (Unsp spec) [#/Vol] 0.89 10*3/uL 0.83-4.51 [facility] Work Phone: Basophil percentageon 2021 Basophils/100 WBC (Bld) 1.2 % 0-1 [facility] Work Phone: Bilirubin [Mass/Vol] 0.80 mg/dL 0.20-1.00 [facility] Work Phone: Comment on above: For patients on eltr ombopag therapy, use of [place] TBIL is not recommended. Chloride [Moles/Vol] 107 mmol/L 98-107 [facility] Work Phone: Cholesterol [Mass/Vol] 132 mg/dL <200 [facility] Work Phone: Comment on above: <200 mg/dL Desirable 200-240 mg/dL Borderline >240 mg/dL High Risk Eosinophils/100 WBC (Bld) 2.7 % 0-5 [facility] Work Phone: Glucose [Mass/Vol] 95 mg/dL 74-106 [facility] Work Phone: Neutrophils (Bld) [#/Vol] 3.3 10*3/uL 2.0-7.7 [facility] Work Phone: Neutrophils/100 WBC (Bld) 68.0 % 47-70 [facility] Work Phone: Potassium [Moles/Vol] 3.7 mmol/L 3.5-5.1 [facility] Phone: [phone] Protein [Mass/Vol] 6.6 g/dL 6.4-8.2 [facility] Work Phone: [phone] Sodium [Moles/Vol] 140 mmol/L 136-145 [facility] Work Phone: [phone] Triglyceride [Mass/Vol] 54 mg/dL <199 [facility] Work Phone: [phone] Comment on above: The drugs N-Acetylcy steine and Metamizole may falsely depress this assay.Serum Triglycerides Reference Interval Normal <150 mg/dL Borderline high 150 - 199 mg/dL High 200 - 499 mg/dL Very High > or = 500 mg/dL WBC (Bld) [#/Vol] 4.8 10*3/uL 4.4-11.0 [facility] Work Phone: Blood erythrocytes count (nu mber/volume)on 10-02-2021 RBC (Bld) [#/Vol] 4.07 10*6/uL 4.6-6.2 [facility] Work Phone: [phone] Blood hemoglobin measurement (mass/volume)on 10-02-2021 Hemoglobin (Bld) [Mass/Vol] 12.9 g/dL 13.0-16.5 [facility] Work Phone: Blood lymphocytes/100 leukoc yteson 10-02-2021 Lymphocytes/100 WBC (Bld) 18.5 % 19-41 [facility] Work Phone: [phone] Blood monocytes/100 leukocyt eson 10-02-2021 Monocytes/100 WBC (Bld) 9.4 % 0-10 [facility] Work Phone: Blood platelet mean volumeon 10-02-2021 Platelet mean volume (Bld) [Entitic vol] 10.8 fL 6.2-12.0 [facility] Work Phone: [phone] Determination of erythrocyte mean corpuscular volume (MCV)on 10-02-2021 MCV (RBC) [Entitic vol] 95.3 fL 80-94 [facility] Work Phone: [phone] Hematocrit Auto (Bld) [Volum e fraction]on 10-02-2021 Hematocrit (Bld) [Volume fraction] 38.8 % 40-54 [facility] Work Phone: [phone] Iron measurement (mass/mass) on 10-02-2021 Iron (Unsp spec) [Mass/Mass] 104 ug/dL 65-175 [facility] Work Phone: [phone] Laboratory - Chemistry and C hemistry - challengeon 10-02-2021 Cobalamin (Vitamin B12) [Mass/Vol] 449 pg/mL 211-911 [facility] Work Phone: ALP [Catalytic activity/Vol] 68 U/L 45-117 [facility] Work Phone: [phone] ALT [Catalytic activity/Vol] 21 U/L 16-61 [facility] Work Phone: [phone] CO2 [Moles/Vol] 27.0 mmol/L 21.0-32.0 [facility] Work Phone: [phone] Globulin (S) [Mass/Vol] 3.1 g/dL 2.2-4.2 [facility] Work Phone: [phone] Transferrin [Mass/Vol] 229 mg/dL 177-329 [facility] Work Phone: [phone] Comment on above: Performed at: [address] [id number] Director: Scooby Downs PhD, Phone: [phone] Urea nitrogen/Creatinine [Mass ratio] 31.4 mg/mg 10-20 [facility] Work Phone: [phone] Laboratory - Hematology and Cell countson 10-02-2021 Erythrocyte distribution width (RBC) [Entitic vol] 43.9 fL 35.1-43.9 [facility] Work Phone: [phone] Erythrocyte distribution width (RBC) [Ratio] 12.5 % 11.6-14.6 [facility] Work Phone: [phone] Immature granulocytes/100 WBC (Bld) 0.200 % 0.0-0.9 [facility] Work Phone: Comment on above: IG% - Immature Granu locytes (promyelocytes, myelocytes and metamyelocytes) > 1% indicates that a LEFT SHIFT is Present. MCH (RBC) [Entitic mass] 31.7 pg 27.0-32.0 [facility] Work Phone: Nucleated RBC/100 WBC (Bld) [Ratio] 0 % 0-5 [facility] Work Phone: [phone] MCHC Auto (RBC) [Mass/Vol]on 10-02-2021 MCHC (RBC) [Mass/Vol] 33.2 g/dL 32-36 [facility] Work Phone: No Panel Informationon 10-02 Estimated GFR (MDRD) Amer 143 mL/min >60 [facility] Work Phone: Comment on above: GFR Calc Estimated GFR (MDRD) Non-Af Amer 118 mL/min >60 [facility] Work Phone: Comment on above: Non- GFR Calc Total Iron Binding Capacity 285 ug/dL 250-450 [facility] Work Phone: Platelets bldon 10-02-2021 Platelets (Bld) [#/Vol] 231 10*3/uL 150-450 [facility] Work Phone: [phone] Serum or plasma albumin ash urement (mass/volume)on 10-02-2021 Albumin [Mass/Vol] 3.5 g/dL 3.2-5.0 [facility] Work Phone: Serum or plasma albumin/glob ulin mass ratioon 10-02-2021 Albumin/Globulin [Mass ratio] 1.1 {ratio} 0.9-2.4 [facility] Work Phone: [phone] Serum or plasma calcium ash urement (mass/volume)on 10-02-2021 Calcium [Mass/Vol] 8.7 mg/dL 8.5-10.1 [facility] Work Phone: [phone] Serum or plasma cholesterol in HDL measurement (mass/volume)on 10-02-2021 Cholesterol in HDL [Mass/Vol] 57 mg/dL >40 [facility] Work Phone: Comment on above: The drugs N-Acetylcy steine and Metamizole may falsely depress this assay. Reference Range HDL <40 mg/dL Low HDL Cholesterol HDL >or= 60 mg/dL High HDL Cholesterol Serum or plasma cholesterol in VLDL measurement (mass/volume)on 10-02-2021 Cholesterol in VLDL [Mass/Vol] 11 mg/dL 5-40 [facility] Work Phone: [phone] Serum or plasma creatinine m easurement (mass/volume)on 10-02-2021 Creatinine [Mass/Vol] 0.70 mg/dL 0.70-1.30 [facility] Work Phone: Comment on above: The validity of the calculated GFR & GFRAA in patients over 70 years has not been determined. Clinical correlation is essential. Serum or plasma ferritin elham surement (mass/volume)on 10-02-2021 Ferritin [Mass/Vol] 290 ng/mL 26-388 [facility] Work Phone: Serum or plasma iron saturat ion measurement (mass fraction)on 10-02-2021 Iron saturation [Mass fraction] 36.5 % 15.0-55.0 [facility] Work Phone: [phone] Serum or plasma low density lipoprotein (LDL) cholesterol measurement (mass/volume)on 10-02-2021 Cholesterol in LDL [Mass/Vol] 64 mg/dL 0-130 [facility] Work Phone: [phone] Serum or plasma urea nitroge n measurement (mass/volume)on 10-02-2021 Urea nitrogen [Mass/Vol] 22 mg/dL 7-18 [facility] Work Phone: [phone] Thin prep Papanicolaou smear with manual screeningon 10-02-2021 Thin prep Papanicolaou smear with manual screening 29 U/L 15-37 [facility] Work Phone: [phone] Thin prep Papanicolaou smear with manual screening 6 5-15 [facility] Work Phone: Whole blood hemoglobin A1c/t otal hemoglobin ratio (mass fraction)on 10-02-2021 HbA1c (Bld) [Mass fraction] 6.0 % 3.8-5.6 [facility] Work Phone: Comment on above: Normal < 5.7 % Predi abetic 5.7 - 6.4 % Diabetic >or= 6.5 % Please note range changes. Vital Signs Date Time Vital Sign Value Performing Clinician Faci lity 07-23-2024 11:37-0400 Body temperature 98.2 [degF] Dr. Davis Armstrong MD Work Phone: [phone] [place] [address] 07-23-2024 11:37-0400 Diastolic blood pressure 78 mm[Hg] Dr. Davis Armstrong MD Work Phone: [phone] [place] [address] 07-23-2024 11:37-0400 Heart rate 80 /min Dr. Davis Armstrong MD Work Phone: [phone] [place] [address] 07-23-2024 11:37-0400 Respiratory rate 18 /min Dr. Davis Armstrong MD Work Phone: [phone] [place] [address] 07-23-2024 11:37-0400 SaO2% (BldA) [Mass fraction] 97 % Dr. Davis Armstrong MD Work Phone: [facility] 07-23-2024 11:37-0400 Systolic blood pressure 148 mm[Hg] Dr. Davis Armstrong MD Work Phone: [facility] 07-23-2024 07:05-0400 Body height 170.[address] Davis Armstrong MD Work Phone: [facility] 07-23-2024 07:05-0400 Body mass index (BMI) [Ratio] 31.6 kg/m2 Dr. Davis Armstrong MD Work Phone: [facility] 07-23-2024 07:05-0400 Body weight 91.[address] Davis Armstrong MD Work Phone: [phone] [place] [address] 12-27-2022 11:00-0400 Diastolic blood pressure 86 mm[Hg] [facility] 12-27-2022 11:00-0400 Systolic blood pressure 141 mm[Hg] [facility] 12-27-2022 09:36-0400 Heart rate 92 /min [facility] 12-27-2022 09:36-0400 Respiratory rate 26 /min [facility] 12-27-2022 09:36-0400 SaO2% (BldA) [Mass fraction] 99 % [facility] 12-27-2022 07:36-0400 Body height 170.18 cm [facility] 12-27-2022 07:36-0400 Body mass index (BMI) [Ratio] 31.3 kg/m2 [facility] 12-27-2022 07:36-0400 Body temperature 97.2 [degF] [facility] 12-27-2022 07:36-0400 Body weight 90.71 kg [facility] 01-18-2022 17:03-0400 Body height 170.18 cm [facility] 01-18-2022 17:03-0400 Body mass index (BMI) [Ratio] 30.5 kg/m2 [facility] 01-18-2022 17:03-0400 Body temperature 98.7 [degF] [facility] 01-18-2022 17:03-0400 Body weight 88.45 kg [facility] 01-18-2022 17:03-0400 Diastolic blood pressure 96 mm[Hg] [facility] 01-18-2022 17:03-0400 Heart rate 113 /min [facility] 01-18-2022 17:03-0400 Respiratory rate 18 /min [facility] 01-18-2022 17:03-0400 SaO2% (BldA) [Mass fraction] 94 % [facility] 01-18-2022 17:03-0400 Systolic blood pressure 145 mm[Hg] [facility] 01-18-2022 12:06-0400 Body temperature 98.2 [degF] [facility] 01-18-2022 12:06-0400 Diastolic blood pressure 80 mm[Hg] [facility] 01-18-2022 12:06-0400 Heart rate 77 /min [facility] 01-18-2022 12:06-0400 Respiratory rate 18 /min [facility] 01-18-2022 12:06-0400 SaO2% (BldA) [Mass fraction] 97 % [facility] 01-18-2022 12:06-0400 Systolic blood pressure 142 mm[Hg] [facility] 01-16-2022 18:35-0400 Body mass index (BMI) [Ratio] 30.4 kg/m2 [facility] 01-16-2022 18:35-0400 Body weight 88.3 kg [facility] 01-16-2022 10:27-0400 Body temperature 97 [degF] [facility] 01-16-2022 10:27-0400 Diastolic blood pressure 98 mm[Hg] [facility] 01-16-2022 10:27-0400 Heart rate 51 /min [facility] 01-16-2022 10:27-0400 Respiratory rate 18 /min [facility] 01-16-2022 10:27-0400 SaO2% (BldA) [Mass fraction] 98 % [facility] 01-16-2022 10:27-0400 Systolic blood pressure 142 mm[Hg] [facility] 01-16-2022 06:54-0400 Body height 170.18 cm [facility] Work Phone: 01-16-2022 06:54-0400 Body mass index (BMI) [Ratio] 30.6 kg/m2 [facility] 01-16-2022 06:54-0400 Body weight 88.72 kg [facility] 12-19-2021 13:58-0400 Body temperature 97.2 [degF] [facility] 12-19-2021 13:58-0400 Diastolic blood pressure 82 mm[Hg] [facility] 12-19-2021 13:58-0400 Heart rate 76 /min [facility] 12-19-2021 13:58-0400 Respiratory rate 16 /min [facility] 12-19-2021 13:58-0400 SaO2% (BldA) [Mass fraction] 97 % [facility] 12-19-2021 13:58-0400 Systolic blood pressure 148 mm[Hg] [facility] 12-19-2021 09:10-0400 Body height 170.18 cm [facility] Work Phone: 12-19-2021 09:10-0400 Body mass index (BMI) [Ratio] 29.9 kg/m2 [facility] 12-19-2021 09:10-0400 Body weight 86.63 kg [facility] 12-02-2021 23:08-0400 Diastolic blood pressure 82 mm[Hg] [facility] Work Phone: 12-02-2021 23:08-0400 Heart rate 72 /min [facility] Work Phone: 12-02-2021 23:08-0400 Respiratory rate 18 /min [facility] Work Phone: 12-02-2021 23:08-0400 SaO2% (BldA) [Mass fraction] 100 % [facility] Work Phone: 12-02-2021 23:08-0400 Systolic blood pressure 136 mm[Hg] [facility] Work Phone: 12-02-2021 18:27-0400 Body height 170.18 cm [facility] Work Phone: 12-02-2021 18:27-0400 Body mass index (BMI) [Ratio] 29.7 kg/m2 [facility] Work Phone: 12-02-2021 18:27-0400 Body temperature 97.9 [degF] [facility] Work Phone: 12-02-2021 18:27-0400 Body weight 86.18 kg [facility] Work Phone: 08-25-2021 07:28-0400 Body mass index (BMI) [Ratio] 29.7 kg/m2 [facility] Work Phone: 08-25-2021 07:28-0400 Body temperature 98.1 [degF] [facility] Work Phone: 08-25-2021 07:28-0400 Body weight 86.18 kg [facility] Work Phone: 08-25-2021 07:28-0400 Diastolic blood pressure 93 mm[Hg] [facility] Work Phone: 08-25-2021 07:28-0400 Heart rate 73 /min [facility] Work Phone: 08-25-2021 07:28-0400 Respiratory rate 14 /min [facility] Work Phone: 08-25-2021 07:28-0400 SaO2% (BldA) [Mass fraction] 99 % [facility] Work Phone: 08-25-2021 07:28-0400 Systolic blood pressure 176 mm[Hg] [facility] Work Phone: Encounters Encounter Date Encounter Type Care Provider Facility Start: 07-23-2024 End: 07-23-2024 Emergency department patient visit Dr. Davis Armstrong MD Work Phone: -Emergency Department Work Phone: Start: 05-26-2024 End: 05-26-[address] Davis Armstrong MD Work Phone: [facility] Work Phone: Start: 05-26-2024 End: 05-26-[address] Davis Armstrong MD -Laboratory, [facility] Start: 05-26-2024 End: 05-26-2024 ambulatory Davis Armstrong Facility:[facility] Start: 05-19-2024 End: 05-19-[address] Davis Armstrong MD Work Phone: [facility] Work Phone: Start: 05-19-2024 End: 05-19-[address] Davis Armstrong MD -Laboratory, [facility] Start: 05-19-2024 End: 05-19-2024 ambulatory Davis Armstrong Facility:[facility] Start: 01-14-2024 End: 01-14-2024 ambulatory Davis Armstrong Facility:[facility] Start: 09-10-2023 End: 09-10-2023 ambulatory Davis Armstrong Facility:[facility] Start: 05-08-2023 End: 05-08-2023 ambulatory [facility] Work Phone: Start: 05-08-2023 End: 05-08-2023 Patient encounter procedure [facility]-Laboratory Work Phone: Start: 01-08-2023 End: 01-08-2023 ambulatory [facility] Work Phone: Start: 01-08-2023 End: 01-08-2023 [facility] Start: 12-27-2022 End: 12-27-2022 Emergency department patient visit [facility]-Emergency Department Work Phone: Start: 10-08-2022 End: 10-08-2022 [facility] Start: 04-08-2022 End: 04-08-2022 ambulatory [facility] Work Phone: Start: 04-08-2022 End: 04-08-2022 Patient encounter procedure [facility]-Laboratory, Specimen Start: 03-28-2022 End: 03-28-2022 ambulatory [facility] Work Phone: Start: 03-28-2022 End: 03-28-2022 Patient encounter procedure [facility]-Laboratory Start: 01-18-2022 End: 01-18-2022 Emergency department patient visit [facility]-Emergency Department Start: 01-16-2022 End: 01-18-2022 Evaluation and management of inpatient [facility]-Medical Surgical 3 Start: 01-16-2022 End: 01-16-2022 Admission to same day surgery center [facility] Day Care Start: 01-16-2022 End: 01-16-2022 ambulatory [facility] Work Phone: Start: 12-19-2021 End: 12-19-2021 Admission to same day surgery center [facility] Start: 12-19-2021 End: 12-19-2021 ambulatory [facility] Work Phone: Start: 12-18-2021 End: 12-18-2021 ambulatory [facility] Work Phone: Start: 12-18-2021 End: 12-18-2021 Patient encounter procedure [facility] Start: 12-02-2021 End: 12-02-2021 [facility] Start: 10-02-2021 End: 10-02-2021 Patient encounter procedure [facility] Start: 08-25-2021 End: 08-25-2021 Emergency department patient visit [facility]-Emergency Department Procedures Date Procedure Procedure Detail [...] in Urine by Culture Urine Culture [facility] Start: 07-23-2024 [facility] Start: 07-23-2024 End: 07-23-2024 [facility] Start: 12-27-2022 [facility] Start: 12-27-2022 [facility] Start: 01-18-2022 Referral to service [facility] Start: 01-18-2022 Patient discharge [facility] Start: 01-17-2022 Incentive spirometry [facility] Start: 01-16-2022 [facility] Start: 01-16-2022 Admission procedure [facility] Start: 01-16-2022 Following clinical pathway protocol [facility] Start: 01-16-2022 Anes transurethral resection of bladder tumor ANESTH BLADDER TUMOR SURG [facility] Start: 01-16-2022 Cystourethroscopy w/dest &/rmvl tumor large CYSTOSCOPY AND TREATMENT [facility] Start: 01-16-2022 Ambulation without limitation [facility] Start: 01-16-2022 Medication education [facility] Start: 01-16-2022 Patient discharge [facility] Start: 01-16-2022 Taking patient vital signs [facility] Start: 01-16-2022 End: 01-17-2022 [facility] Start: 12-19-2021 Anes lithotrp xtrcorp shock wave w/o water bath ANESTH KIDNEY STONE DESTRUCT [facility] Start: 12-19-2021 Cysto w/insert ureteral stent CYSTOSCOPY AND TREATMENT [facility] Start: 12-19-2021 Lithotripsy xtrcorp shock wave FRAGMENTING OF KIDNEY STONE [facility] Start: 12-19-2021 Patient discharge [facility] Start: 12-19-2021 Ambulation without limitation [facility] Start: 12-19-2021 Medication education [facility] Start: 12-19-2021 Taking patient vital signs [facility] Start: 12-19-2021 [facility] Start: 08-25-2021 Simple repair scalp/neck/ax/genit/trunk 2.5cm/< RPR S/N/AX/GEN/TRNK 2.5CM/< [facility] Work Phone: Electrocardiographic procedure [facility] Work Phone: Electrocardiographic procedure [facility] Patient Education [facility] Work Phone: Patient referral [facility] Work Phone: Troponin T.cardiac [Mass/volume] in Serum or Plasma by High sensitivity method [facility] Urine culture [facility] Immunizations Immunization Date Immunization Notes Care Provider Fa chaz 08-25-2021 tetanus toxoid, redu frankie diphtheria toxoid, and acellular pertussis vaccine, adsorbed [facility] Payers Date Payer Category Payer Self-pay [id number] 2021 Medicare [id number] Unknown [employer] [id number] Unknown [id number] [id number] Unknown [id number] [id number] [id number] Unknown [id number] [id number] [id number] Unknown [id number] Unknown [id number] [id number] [id number] Social History Date Type Detail Facility Start: 12-02-2021 End: 12-27-2022 Tobacco smoking status NHIS Unknown if ever smoked [facility] Start: 12-18-2018 Non-smoker [facility] Start: 1950 Sex Assigned At Male [facility] Start: 12-27-2022 End: 07-23-2024 Tobacco smoking status NHIS Never smoked tobacco (finding) [facility] Start: 05-31-2024 End: 06-02-2024 Sex Male (finding) [facility] Medical Equipment Procedure Code Equipment Code Equipment Origin al Text Equipment Identifier Dates Lithotripsy, [id number] ([id number]) Polymeric uret eral stent [id number] FDA Start: 12-19-2021 Goals Date Patient Goal Desired Activity /State Functional Status Date Assessment Result Facility 01-18-2022 Functional status Activity Ability Indepe ndent [facility] Work Phone: 01-17-2022 Functional status Ambulates [facility] Work Phone: Mental Status Date Assessment Result Facility 07-23-2024 Cognitive function Level Of Cons ciousness Awake;Alert;Appropriate;Follow s Commands [facility] Work Phone: 12-27-2022 Cognitive function Level Of Cons ciousness Awake;Alert;Appropriate;Follow s Commands [facility] Work Phone: 01-18-2022 Cognitive function Voice/Name [facility] Work Phone: 01-16-2022 Cognitive function Level Of Cons ciousness Awake;Alert;Appropriate;Follow s Commands [facility] Work Phone: 12-19-2021 Cognitive function Touch/Shaking [facility] Work Phone: 12-19-2021 Cognitive function Patient Orien tation Person;Place;Time [facility] Work Phone: Radiology Diagnostic study note 07-23-2024 Note Date & Type Note Facility 07-23-2024 Radiology Diagnostic study note [facility] Imaging Services [address] [place] [address] Chest PA and Lateral MR#: [id number] Acct: [id number] Name: YANET CORRIGAN Rep #: [id number] : [id number] M 74 From: Jaguar Ontiveros MD PCP: Dr. Davis Armstrong MD Status: RE G ER Study:Chest PA and Lateral Date of Exam: 07/23/24 Exam# [id number] Ordering Dr: Osmany Evans DO PROCEDURE: CHEST [...] Evans DO; Dr. Davis Armstrong MD ~ Commissioner Conservation Of Resources: Signed [facility] Evaluation note Note Date & Type Note Facility Evaluation note No assessment information availa ble [facility] Work Phone: Hospital Discharge instructions Note Date & Type Note Facility Hospital Discharge instructions Ambulatory [id number] Lead EKG [[facility]] Time Frame: 01/16/22, Location: None Selected Additional Instructions Implant Used?: No [facility] Work Phone: Reason for referral (narrative) Note Date & Type Note Facility Reason for referral (narrative) No reason for referral information available [facility] Work Phone: Chief Complaint and Reason [...] Yes December 02, 2021 6:54pm Power of Training Program Developer No November 6:54pm Advance Directive Response Recorded Date/ Time Living Will No December 12, 2021 10:17am Power of Training Program Developer No November 10:17am Advance Directive Response Recorded Date/ Time Living Will No January 09 2:13pm Power of Training Program Developer No January 09, 2022 2:13pm Advance Directive Response Recorded Date/ Time Living Will Yes January 18 4:22pm Power of Training Program Developer No January 18, 2022 4:22pm Advance Directive Response Recorded Date/ Time Living Will Yes December 27 7:46am Power of Training Program Developer No December 27, 2022 7:46am Advance Directive Response Recorded Date/ Time Living Will Yes December 27 6:46am Power of Training Program Developer No December 27, 2022 6:46am Advance Directive Response Recorded Date/ Time Do you have a Healthcare Power of Training Program Developer? No July 23, 2024 7:21am Summary Purpose [...] Georgina Hatch MD Emergency Provider Active Dr. Davsi Armstrong MD Primary Care Provider Active Dr. Dwayne Mayes MD Admit Provider, Attending Provider Active Team Status: Inactive Member Role Status Dates Dr. Davis Armstrong MD Primary Care Provider Active Dr. aTyo Garner DO Attending Provider, Emergency Pro vider [...] section and content) DATE CREATED AUTHOR 07/30/2024 [facility] FOR RECORDS PERTAINING TO PATIENTS WHO [...] BE BASED ON THE PRIMARY CLINICAL RECORDS. [employer] [facility]. provides no warranty or guarantee of the accuracy or completeness of information in this document.
--- OUTSIDE RECORDS SUMMARY | 2024-09-18 16:52 | XMS RPT_ITS | CCD ---
Author Organization [facility] Care Team Providers Care Mycologist Name Role Phone Patti SANTIAGO, Dr. Davis Wu Primary Care Provider Patti SANTIAGO, Dr. Davis Wu Attending Provider Patti SANTIAGO, Dr. Davis Wu Referring Provider [phone] Dr. Osmany Evans DO Emergency Provider [phone] Davis Armstrong Primary Care Unavailable Davis Armstrong Attending Unavailable Davis Armstrong Referring Unavailable Davis Armstrong Referring Unavailable Davis Armstrong Primary Care Unavailable Davis Armstrong Attending Unavailable Davis Armstrong Primary Care Unavailable Osmany Evans Attending Unavailable Daivs Armstrong Primary Care Unavailable Davis rAmstrong Attending Unavailable Davis Armstrong Referring Unavailable Davis Armstrong Primary Care Unavailable Davis Armstrong Attending Unavailable Davis Armstrong Referring Unavailable Allergies Allergy Classification Reported Allergen(s) Allergy Type Date of Onset Reaction(s) Facility (12 sources) Penicillins Allergy to substance 12-19-2021 Other [facility] (1 source) Penicillins Drug allergy (disorder) 07-23-2024 [facility] Repository Medications Current Medications Medication [...] infection level. Enterococcus faecalis Beta Lactamase-Reportable Negative [place] Count 80,000-100,000 GNR [place] Count <1000 Gram negative buffy Ampicillin Islt YOLANDA <=2 Ciprofloxacin Islt YOLANDA >=8 R Gentamicin Synergy Susc Islt SYN-R levoFLOXacin Islt YOLANDA >=8 R Linezolid Islt YOLANDA 2 S Nitrofurantoin Islt YOLANDA <=16 S Streptomycin High Pot Susc Islt SYN-S S Tetracycline Islt YOLANDA >=16 R Vancomycin Islt YOLANDA 1 S Normal [facility] Comment on above: Performed By: #### M 100.2200 #### [facility] Laboratory [address] [facility] [place], [address] Absolute lymphocyte countOrd ered By: Osmany Evans on 07-23-2024 Lymphocytes Auto (Unsp spec) [#/Vol] 0.43 10*3/uL Low 0.83-4.51 [facility] Absolute neutrophil countOrd ered By: Osmany Evans on 07-23-2024 Neutrophils (Bld) [#/Vol] 9.3 10*3/uL High 2.0-7.7 [facility] Anion gap in Serum or Plasma Ordered By: Osmany Evans on 07-23-2024 Anion gap [Moles/Vol] 11 mmol/L 5-15 [facility] Automated lymphocyte count a s percentage of total leukocytesOrdered By: Osmany Evans on 07-23-2024 Lymphocytes/100 WBC Auto (Unsp spec) 4.0 % Low 19-41 [facility] BUN/creatinine ratioOrdered By: Osmany Evans on 07-23-2024 Urea nitrogen/Creatinine [Mass ratio] 19.5 mg/mg 10-20 [facility] Basic Metabolic Profile (BMP )on 07-23-2024 BUN/CRE 19.5 RATIO Normal - [facility] Comment on above: Performed By: #### L 500.2500, L100.0100 #### [facility] Laboratory [address] [place], [address] Calcium [Mass/Vol] 9.1 mg/dL Normal 7.6-11.0 [facility] Comment on above: Performed By: #### L 500.2500, L100.0100 #### [facility] [address] [place], [address] Chloride [Moles/Vol] 102 mmol/L Normal 98-108 [facility] Comment on above: Performed By: #### L 500.2500, L100.0100 #### [facility] [address] [place], [address] CO2 [Moles/Vol] 23.1 mmol/L Normal 21.0-32.0 [facility] Comment on above: Performed By: #### L 500.2500, L100.0100 #### [facility] Laboratory [address] [place], [address] Creatinine [Mass/Vol] 0.95 mg/dL Normal 0.70-1.20 [facility] Comment on above: Performed By: #### L 500.2500, L100.0100 #### [facility] [address] [place], [address] ECRCL 74.77 ml/min Normal 50-250 [facility] Comment on above: Performed By: #### L 500.2500, L100.0100 #### [facility] [address] [place], [address] GAP 11 Normal 5-15 [facility] Comment on above: Performed By: #### L 500.2500, L100.0100 #### [facility] [address] [place], [address] GFR/1.73 sq M.predicted among non-blacks MDRD (S/P/Bld) [Vol rate/Area] 84 mL/min/{1.73_m2} Normal >60 [facility] Comment on above: Result Comment: mL/m in/1.73m2 CKD-EPI Creatinine Equation (2020) Performed By: #### L 500.2500, L100.0100 #### [facility] [address] [place], [address] Glucose [Mass/Vol] 100 mg/dL High 70-99 [facility] Comment on above: Performed By: #### L 500.2500, L100.0100 #### [facility] [address] [place], [address] Potassium [Moles/Vol] 3.9 mmol/L Normal 3.3-5.1 [facility] Comment on above: Performed By: #### L 500.2500, L100.0100 #### [facility] [address] [place], [address] Sodium [Moles/Vol] 136 mmol/L Normal 133-145 [facility] Comment on above: Performed By: #### L 500.2500, L100.0100 #### [facility] [address] [place], [address] Urea nitrogen [Mass/Vol] 19 mg/dL Normal 4-19 [facility] Comment on above: Performed By: #### L 500.2500, L100.0100 #### [facility] [address] [place], [address] Basophil percentageOrdered B y: Osmany Evans on 07-23-2024 Basophils/100 WBC (Bld) 0.4 % 0-1 [facility] Bilirubin Test strip Ql (U)O rdered By: Osmany Evans on 07-23-2024 Bilirubin Ql (U) Negative Negative [facility] CBC W/Diff, Automatedon Absolute Lymph 0.43 X10 3/uL Low 0.83-4.51 [facility] Comment on above: Performed By: #### L 500.2500, L100.0100 #### [facility] [address] [place], [address] Absolute Neut 9.3 X10 3/uL High 2.0-7.7 [facility] Comment on above: Performed By: #### L 500.2500, L100.0100 #### [facility] [address] [place], [address] Basophils/100 WBC (Bld) 0.4 % Normal 0-1 [facility] Comment on above: Performed By: #### L 500.2500, L100.0100 #### [facility] [address] [place], [address] Eosinophils/100 WBC (Bld) 0.2 % Normal 0-5 [facility] Comment on above: Performed By: #### L 500.2500, L100.0100 #### [facility] [address] [place], [address] Erythrocyte distribution width (RBC) [Ratio] 13.3 % Normal 11.6-14.6 [facility] Comment on above: Performed By: #### L 500.2500, L100.0100 #### [facility] [address] [place], [address] Hematocrit (Bld) [Volume fraction] 40.1 % Normal 40-54 [facility] Comment on above: Performed By: #### L 500.2500, L100.0100 #### [facility] [address] [place], [address] Hemoglobin (Bld) [Mass/Vol] 13.8 g/dL Normal 13.0-16.5 [facility] Comment on above: Performed By: #### L 500.2500, L100.0100 #### [facility] [address] [place], [address] IG% 0.600 Normal 0.0-0.9 [facility] Comment on above: Result Comment: IG% - Immature Granulocytes (promyelocytes, myelocytes and metamyelocytes) > 1% indicates that a LEFT SHIFT is Present. Performed By: #### L 500.2500, L100.0100 #### [facility] [address] [place], [address] Lymphocytes/100 WBC (Bld) 4.0 % Low 19-41 [facility] Comment on above: Performed By: #### L 500.2500, L100.0100 #### [facility] [address] [place], [address] MCH (RBC) [Entitic mass] 32.0 pg Normal 27.0-32.0 [facility] Comment on above: Performed By: #### L 500.2500, L100.0100 #### [facility] Laboratory [address] [place], [address] MCHC (RBC) [Mass/Vol] 34.4 g/dL Normal 32-36 [facility] Comment on above: Performed By: #### L 500.2500, L100.0100 #### [facility] [address] [place], [address] MCV (RBC) [Entitic vol] 93.0 fL Normal 80-94 [facility] Comment on above: Performed By: #### L 500.2500, L100.0100 #### [facility] [address] [place], [address] Monocytes/100 WBC (Bld) 8.2 % Normal 0-10 [facility] Comment on above: Performed By: #### L 500.2500, L100.0100 #### [facility] Laboratory [address] [place], [address] Neutrophils/100 WBC (Bld) 86.6 % High 47-70 [facility] Comment on above: Performed By: #### L 500.2500, L100.0100 #### [facility] Laboratory [address] [place], [address] Nucleated RBC (Bld) [#/Vol] 0 10*3/uL Normal 0-5 [facility] Comment on above: Performed By: #### L 500.2500, L100.0100 #### [facility] Laboratory [address] [place], [address] Platelet mean volume (Bld) [Entitic vol] 10.4 fL Normal 6.2-12.0 [facility] Comment on above: Performed By: #### L 500.2500, L100.0100 #### [facility] Laboratory [address] [place], [address] Platelets (Bld) [#/Vol] 224 10*3/uL Normal 150-450 [facility] Comment on above: Performed By: #### L 500.2500, L100.0100 #### [facility] Laboratory [address] [place], [address] RBC (Bld) [#/Vol] 4.31 10*6/uL Low 4.6-6.2 [facility] Comment on above: Performed By: #### L 500.2500, L100.0100 #### [facility] Laboratory [address] [place], [address] RDW SD 45.2 fl High 35.1-43.9 [facility] Comment on above: Performed By: #### L 500.2500, L100.0100 #### [facility] Laboratory [address] [place], [address] WBC (Bld) [#/Vol] 10.7 10*3/uL Normal 4.4-11.0 [facility] Comment on above: Performed By: #### L 500.2500, L100.0100 #### [facility] Laboratory [address] [place], [address] Carbon dioxide, total [Moles /volume] in Central venous bloodOrdered By: Osmany Evans on 07-23-2024 CO2 [Moles/Vol] 23.1 mmol/L 21.0-32.0 [facility] Chest PA and Lateralon 07-23 Chest PA and Lateral [facility] Imaging Services [address] [place] [address] Chest PA and Lateral MR#: [id number] Acct: [id number] Name: YANET CORRIGAN Rep #: [id number] : 1950 M 74 From: Naveen Ontiveros MD PCP: Dr. Davis Armstrong MD Status: [facility] ER Study: Chest PA and Lateral Date of Exam: 07/23/24 Exam# [id number] Ordering Dr: Osmany Evans DO PROCEDURE: CHEST PA AND LATERAL 07/23/2024 REASON FOR EXAM: COUGH TECHNIQUE: Frontal and lateral views of the chest. COMPARISON: 12/27/2022 FINDINGS: The lungs appear clear. Pulmonary vascularity appears within limits. No pleural effusion. The cardiac and mediastinal contours appear within limits. RAD/Chest PA and Lateral IMPRESSION: No evidence of acute disease. Reading Location: [facility] CC: Dr. Osmany Evans DO; Dr. Davis Armstrong MD Make Up Man: Signed Normal [facility] Chloride assayOrdered By: Mark Evans on 07-23-2024 Chloride [Moles/Vol] 102 mmol/L 98-108 [facility] Emergency Department Summary on 07-23-2024 Emergency Department Summary [facility] Medical Records Department [address] [place] [address] Emergency Department Summary 07/23/24 MR#: [id number] Acct: [id number] Name: YANET CORRIGAN Rep #: [id number] : 1950 74 From: Osmany Evans DO PCP: Dr. Davis Armstrong MD Status:[facility] ER Location: ED HPI History [...] and bronchitis (more content not included)... Normal [facility] Eosinophil percentageOrdered By: Osmany Evans on 07-23-2024 Eosinophils/100 WBC (Bld) 0.2 % 0-5 [facility] Erythrocyte distribution wid th ratioOrdered By: Osmany Evans on 07-23-2024 Erythrocyte distribution width (RBC) [Ratio] 13.3 % 11.6-14.6 [facility] Erythrocyte distribution wid th standard deviationOrdered By: Osmany Evans on 07-23-2024 Erythrocyte distribution width (RBC) [Ratio] 45.2 fl High 35.1-43.9 [facility] Glomerular filtration rate ( GFR) estimation/1.73 sq m using serum, plasma, or whole bOrdered By: Osmany Evans on 07-23-2024 GFR/1.73 sq M.predicted among non-blacks MDRD (S/P/Bld) [Vol rate/Area] 84 mL/min/{1.73_m2} >60 [facility] Comment on above: mL/min/1.73m2 CKD-EP I Creatinine Equation (2020) Hematocrit Auto (Bld) [Volum e fraction]Ordered By: Osmany Evasn on 07-23-2024 Hematocrit (Bld) [Volume fraction] 40.1 % 40-54 [facility] Hemoglobin measurementOrdere d By: Osmany Evans on 07-23-2024 Hemoglobin (Bld) [Mass/Vol] 13.8 g/dL 13.0-16.5 [facility] Immature granulocytes/100 WB C Auto (Bld)Ordered By: Osmany Evans on 07-23-2024 Immature granulocytes/100 WBC (Bld) 0.600 % 0.0-0.9 [facility] Comment on above: IG% - Immature Granu locytes (promyelocytes, myelocytes and metamyelocytes) > 1% indicates that a LEFT SHIFT is Present. Influenza virus A and B and SARS-CoV-2 (COVID-19) and Respiratory syncytial virus RNAOrdered By: Osmany Evans on 07-23-2024 SARS-CoV-2 (COVID-19) RNA AMELIA+probe Ql (Unsp spec) [facility] Ketones Test strip Ql (U)Ord ered By: Osmany Evans on 07-23-2024 Ketones Ql (U) 5 mg/dl High Negative [facility] L499.0042on 07-23-2024 Trop T High Sen 33 ng/L High <=22 [facility] Comment on above: Performed By: #### L 500.2500, L100.0100 #### [facility] Laboratory [address] [place] [address]. [place], [address] L499.0043on 05-09-2025 Trop T High Sen Normal <=22 [facility] Comment on above: Result Comment: LUIZ ENT DISCHARGED Performed By: #### L 499.0043 #### [facility] Laboratory [address] [place], [address] L501.4021on 07-23-2024 Trop T High Sen 36 ng/L High <=22 [facility] Comment on above: Performed By: #### L 501.4021 ####[facility] [address] [place], [address] M100.678on 07-23-2024 M100.678 Pending SARS-CoV-2 (COVID 19) Negative INFLUENZA A Negative INFLUENZA B Negative RSV PCR Negative Normal [facility] Comment on above: Performed By: #### L 500.2500, L100.0100 #### [facility] Laboratory [address] [place], [address] MCV (mean corpuscular volume ) determinationOrdered By: Osmany Evans on 07-23-2024 MCV (RBC) [Entitic vol] 93.0 fL 80-94 [facility] Mean corpuscular hemoglobin (MCH) determinationOrdered By: Osmany Evans on 07-23-2024 MCH (RBC) [Entitic mass] 32.0 pg 27.0-32.0 [facility] Mean corpuscular hemoglobin concentration (MCHC) determinationOrdered By: Osmany Evans on 07-23-2024 MCHC (RBC) [Mass/Vol] 34.4 g/dL 32-36 [facility] Mean platelet volume determi nationOrdered By: Osmany Evans on 07-23-2024 Platelet mean volume (Bld) [Entitic vol] 10.4 fL 6.2-12.0 [facility] Microscopic analysis of urin e for red blood cells (RBC)Ordered By: Osmany Evans on 07-23-2024 Microscopic analysis of urine for red blood cells (RBC) 5-10 SEEN /hpf 0-5 [facility] Monocyte percentageOrdered B y: Osmany Evans on 07-23-2024 Monocytes/100 WBC (Bld) 8.2 % 0-10 [facility] Mucus LM Ql (Urine sed)Order ed By: Osmany Evans on 07-23-2024 Mucus Ql (Urine sed) 0 SEEN /hpf [facility] Neutrophil percentageOrdered By: Osmany Evans on 07-23-2024 Neutrophils/100 WBC (Bld) 86.6 % High 47-70 [facility] Nitrite Test strip Ql (U)Ord ered By: Osmany Evans on 07-23-2024 Nitrite Ql (U) Negative Negative [facility] Nucleated red blood cell per centageOrdered By: Osmany Evans on 07-23-2024 Nucleated RBC/100 WBC (Bld) [Ratio] 0 % 0-5 [facility] Platelet countOrdered By: Mark Evans on 07-23-2024 Platelets (Bld) [#/Vol] 224 10*3/uL 150-450 [facility] Potassium measurement (mass/ volume)Ordered By: Osmany Evans on 07-23-2024 Potassium (Unsp spec) [Mass/Vol] 3.9 mmol/L 3.3-5.1 [facility] Protein Test strip Ql (U)Ord ered By: Osmany Evans on 07-23-2024 Protein Ql (U) 100 mg/dl High Negative [facility] RBC Auto (Bld) [#/Vol]Ordere d By: Osmany Evans on 07-23-2024 RBC (Bld) [#/Vol] 4.31 10*6/uL Low 4.6-6.2 [facility] Serum creatinine measurement (mass/volume)Ordered By: Osmany Evans on 07-23-2024 Creatinine [Mass/Vol] 0.95 mg/dL 0.70-1.20 [facility] Serum glucose measurement (m ass/volume)Ordered By: Osmany Evans on 07-23-2024 Glucose [Mass/Vol] 100 mg/dL High 70-99 [facility] Serum or plasma calcium ash urement (mass/volume)Ordered By: Osmany Evans on 07-23-2024 Calcium [Mass/Vol] 9.1 mg/dL 7.6-11.0 [facility] Serum or plasma urea nitroge n measurement (mass/volume)Ordered By: Osmany Evans on 07-23-2024 Urea nitrogen [Mass/Vol] 19 mg/dL 4-19 [facility] Sodium levelOrdered By: Osmany Evans on 07-23-2024 Sodium [Moles/Vol] 136 mmol/L 133-145 [facility] Squamous epithelial cells de tection in urine sediment by light microscopyOrdered By: Osmany Evans on 07-23-2024 Epithelial cells.squamous LM Ql (Urine sed) 0 SEEN /hpf 0-5 [facility] Troponin T.cardiac [Mass/vol ume] in Serum or Plasma by High sensitivity methodOrdered By: Osmany Evans on 07-23-2024 Troponin T.cardiac High sensitivity method [Mass/Vol] 33 ng/L High <22 [facility] Troponin T.cardiac High sensitivity method [Mass/Vol] 36 ng/L High <22 [facility] Urinalysis, Completeon 07-23 BACTERIA 1+ /hpf Normal None Seen [facility] Comment on above: Order Comment: CLEAN CATCH Performed By: #### L 500.2500, L100.0100 #### [facility] Laboratory [address] [place], [address] RBC 5-10 SEEN Normal [address] Comment on above: Order Comment: CLEAN CATCH Performed By: #### L 500.2500, L100.0100 #### [facility] [address] [place], [address] WBC 10-25 SEEN Normal 0-[address] [place] [address] Comment on above: Order Comment: CLEAN CATCH Performed By: #### L 500.2500, L100.0100 #### [facility] [address] [place], [address] EPI,SQUAMOUS 0 SEEN Normal 0-5 [facility] Comment on above: Order Comment: CLEAN CATCH Performed By: #### L 500.2500, L100.0100 #### [facility] Laboratory [address] [place], [address] Mucus Ql (Urine sed) 0 SEEN Normal [facility] Comment on above: Order Comment: CLEAN CATCH Performed By: #### L 500.2500, L100.0100 #### [facility] [place], [address] Urine clarityOrdered By: Olga Evans on 07-23-2024 Clarity (U) Clear Clear [facility] Urine color determinationOrd ered By: Osmany Evans on 07-23-2024 Color (U) Yellow Yellow [facility] Urine glucose detectionOrder ed By: Osmany Evans on 07-23-2024 Glucose Ql (U) Normal mg/dl Normal [facility] Urine leukocyte esterase det ection by dipstickOrdered By: Osmany Evans on 07-23-2024 Leukocyte esterase Test strip Ql (U) 25 /ul High Negative [facility] Urine pHOrdered By: Osmany kerns on 07-23-2024 pH (U) 6.5 [pH] 5.0 - 8.0 [facility] Urine sediment bacteria coun t by microscopy (number/high power field)Ordered By: Osmany Evans on 07-23-2024 Bacteria LM.HPF (Urine sed) [#/Area] 1 /[HPF] None Seen [facility] Urine specific gravity measu rementOrdered By: Osmany Evans on 07-23-2024 Specific gravity (U) [Rel density] 1.010 1.002-1.030 [facility] Urine urobilinogen measureme ntOrdered By: Osmany Evans on 07-23-2024 Urobilinogen Ql (U) 1 mg/dl High Normal [facility] White blood cell (WBC) count Ordered By: Osmany Evans on 07-23-2024 WBC (Bld) [#/Vol] 10.7 10*3/uL 4.4-11.0 [facility] White blood cell countOrdere d By: Osmany Evans on 07-23-2024 White blood cell count 10-25 SEEN /hpf 0-5 [facility] Calculated total iron bindin g capacityOrdered By: Davis Armstrong on 05-26-2024 Total Iron Binding Capacity 299 ug/dL 250-450 [facility] Ferritinon 05-26-2024 Ferritin [Mass/Vol] 273 ng/mL Normal 37-417 [facility] Comment on above: Performed By: #### L 500.2500, L100.0100 #### [facility] [address] [place], [address] Iron (Unsp spec) [Mass/Mass] Ordered By: Davis Armstrong on 05-26-2024 Iron [Mass/Vol] 112 ug/dL 65-175 [facility] Iron measurement (mass/mass) Ordered By: Davis Arsmtrong on 05-26-2024 Iron (Unsp spec) [Mass/Mass] 112 ug/dL 65-175 [facility] Iron saturation [Mass fracti on]Ordered By: Davis Armstrong on 05-26-2024 Iron Saturation 37.0 % 9-55 [facility] Iron+Iron Binding Capacityon 05-26-2024 Iron [Mass/Vol] 112 ug/dL Normal 65-175 [facility] Comment on above: Performed By: #### L 500.2500, L100.0100 #### [facility] [address] [place], [address] IRON SATURATION 37.0 Normal 9-55 [facility] Comment on above: Performed By: #### L 500.2500, L100.0100 #### [facility] [address] [place], [address] TIBC 299 ug/dL Normal 250-450 [facility] Comment on above: Performed By: #### L 500.2500, L100.0100 #### [facility] [address] [place], [address] UIBC 187 ug/dL Low 228-428 [facility] Comment on above: Performed By: #### L 500.2500, L100.0100 #### [facility] [address] [place], [address] L503.0106on 05-26-2024 Cobalamin (Vitamin B12) [Mass/Vol] 651 pg/mL Normal 180-914 [facility] Comment on above: Performed By: #### L 500.2500, L100.0100 #### [facility] Laboratory [place], [address] No Panel InformationOrdered By: Davis Armstrong on 05-26-2024 Unsaturated Iron Binding Capacity 187 ug/dL Low 228-428 [facility] Serum or plasma ferritin elham surement (mass/volume)Ordered By: Davis Armstrong on 05-26-2024 Ferritin [Mass/Vol] 273 ng/mL 37-417 [facility] Serum or plasma iron saturat ion measurement (mass fraction)Ordered By: Davis Armstrong on 05-26-2024 Iron saturation [Mass fraction] 37.0 % 9-55 [facility] Vitamin B12 ser/plasOrdered By: Davis Armstrong on 05-26-2024 Cobalamin (Vitamin B12) [Mass/Vol] 651 pg/mL 180-914 [facility] Absolute lymphocyte countOrd ered By: Davis Armstrong on 05-19-2024 Lymphocytes Auto (Unsp spec) [#/Vol] 0.85 10*3/uL 0.83-4.51 [facility] Absolute neutrophil countOrd ered By: Davis Armstrong on 05-19-2024 Neutrophils (Bld) [#/Vol] 4.0 10*3/uL 2.0-7.7 [facility] Albumin DL <= 20 mg/L (U) [M ass/Vol]Ordered By: Davis Armstrong on 05-19-2024 Urine Random Microalbumin 28.6 mg/L NO RANGE EST. [facility] Anion gap in Serum or Plasma Ordered By: Davis Armstrong on 05-19-2024 Anion gap [Moles/Vol] 13 mmol/L 5-15 [facility] Automated lymphocyte count a s percentage of total leukocytesOrdered By: Davis Armstrong on 05-19-2024 Lymphocytes/100 WBC Auto (Unsp spec) 15.5 % Low 19-41 [facility] BUN/creatinine ratioOrdered By: Davis Armstrong on 05-19-2024 Urea nitrogen/Creatinine [Mass ratio] 25.9 mg/mg High 10-20 [facility] Basophil percentageOrdered B y: Davis Armstrong on 05-19-2024 Basophils/100 WBC (Bld) 1.1 % High 0-1 [facility] Bilirubin, totalOrdered By: Davis Armstrong on 05-19-2024 Bilirubin [Mass/Vol] 0.61 mg/dL 0.00-1.30 [facility] CBC W/Diff, Automatedon Absolute Lymph 0.85 X10 3/uL Normal 0.83-4.51 [facility] Comment on above: Order Comment: Order Date: 05/19/24Order Info: [id number] - CBCD Performed By: #### L 100.0100, L501.9985, L501.5200, L501.9520, L500.4050, L500.4100 ####[facility] [address] [place], [address] Absolute Neut 4.0 X10 3/uL Normal 2.0-7.7 [facility] Comment on above: Order Comment: Order Date: 05/19/24Order Info: [id number] - CBCD Performed By: #### L 100.0100, L501.9985, L501.5200, L501.9520, L500.4050, L500.4100 ####[facility] [address] [place], [address] Basophils/100 WBC (Bld) 1.1 % High 0-1 [facility] Comment on above: Order Comment: Order Date: 05/19/24Order Info: [id number] - CBCD Performed By: #### L 100.0100, L501.9985, L501.5200, L501.9520, L500.4050, L500.4100 ####[facility] [address] [place], [address] Eosinophils/100 WBC (Bld) 2.2 % Normal 0-5 [facility] Comment on above: Order Comment: Order Date: 05/19/24Order Info: [id number] - CBCD Performed By: #### L 100.0100, L501.9985, L501.5200, L501.9520, L500.4050, L500.4100 ####[facility] [address] [place], [address] Erythrocyte distribution width (RBC) [Ratio] 12.7 % Normal 11.6-14.6 [facility] Comment on above: Order Comment: Order Date: 05/19/24Order Info: [id number] - CBCD Performed By: #### L 100.0100, L501.9985, L501.5200, L501.9520, L500.4050, L500.4100 ####[facility] [address] [place], [address]( Hematocrit (Bld) [Volume fraction] 38.2 % Low 40-54 [facility] Comment on above: Order Comment: Order Date: 05/19/24Order Info: [id number] - CBCD Performed By: #### L 100.0100, L501.9985, L501.5200, L501.9520, L500.4050, L500.4100 ####[facility] [address] [place], [address] Hemoglobin (Bld) [Mass/Vol] 12.7 g/dL Low 13.0-16.5 [facility] Comment on above: Order Comment: Order Date: 05/19/24Order Info: [id number] - CBCD Performed By: #### L 100.0100, L501.9985, L501.5200, L501.9520, L500.4050, L500.4100 ####[facility] [address] [facility] [place], [address] IG% 0.400 Normal 0.0-0.9 [facility] Comment on above: Order Comment: Order Date: 05/19/24Order Info: [id number] - CBCD Result Comment: IG% - Immature Granulocytes (promyelocytes, myelocytes and metamyelocytes) > 1% indicates that a LEFT SHIFT is Present. Performed By: #### L 100.0100, L501.9985, L501.5200, L501.9520, L500.4050, L500.4100 ####[facility] [address] [place], [address] Lymphocytes/100 WBC (Bld) 15.5 % Low 19-41 [facility] Comment on above: Order Comment: Order Date: 05/19/24Order Info: [id number] - CBCD Performed By: #### L 100.0100, L501.9985, L501.5200, L501.9520, L500.4050, L500.4100 ####[facility] [address] [place], [address] MCH (RBC) [Entitic mass] 30.8 pg Normal 27.0-32.0 [facility] Comment on above: Order Comment: Order Date: 05/19/24Order Info: [id number] - CBCD Performed By: #### L 100.0100, L501.9985, L501.5200, L501.9520, L500.4050, L500.4100 ####[facility] [address] [place], [address] MCHC (RBC) [Mass/Vol] 33.2 g/dL Normal 32-36 [facility] Comment on above: Order Comment: Order Date: 05/19/24Order Info: [id number] - CBCD Performed By: #### L 100.0100, L501.9985, L501.5200, L501.9520, L500.4050, L500.4100 ####[facility] [address] [place], [address] MCV (RBC) [Entitic vol] 92.7 fL Normal 80-94 [facility] Comment on above: Order Comment: Order Date: 05/19/24Order Info: [id number] - CBCD Performed By: #### L 100.0100, L501.9985, L501.5200, L501.9520, L500.4050, L500.4100 ####[facility] [address] [place], [address] Monocytes/100 WBC (Bld) 7.5 % Normal 0-10 [facility] Comment on above: Order Comment: Order Date: 05/19/24Order Info: [id number] - CBCD Performed By: #### L 100.0100, L501.9985, L501.5200, L501.9520, L500.4050, L500.4100 ####[facility] [address] [place], [address] Neutrophils/100 WBC (Bld) 73.3 % High 47-70 [facility] Comment on above: Order Comment: Order Date: 05/19/24Order Info: [id number] - CBCD Performed By: #### L 100.0100, L501.9985, L501.5200, L501.9520, L500.4050, L500.4100 ####[facility] [address] [place], [address] Nucleated RBC (Bld) [#/Vol] 0 10*3/uL Normal 0-5 [facility] Comment on above: Order Comment: Order Date: 05/19/24Order Info: [id number] - CBCD Performed By: #### L 100.0100, L501.9985, L501.5200, L501.9520, L500.4050, L500.4100 ####[facility] [address] [place], [address] Platelet mean volume (Bld) [Entitic vol] 10.8 fL Normal 6.2-12.0 [facility] Comment on above: Order Comment: Order Date: 05/19/24Order Info: [id number] - CBCD Performed By: #### L 100.0100, L501.9985, L501.5200, L501.9520, L500.4050, L500.4100 ####[facility] [address] [place], [address] Platelets (Bld) [#/Vol] 256 10*3/uL Normal 150-450 [facility] Comment on above: Order Comment: Order Date: 05/19/24Order Info: [id number] - CBCD Performed By: #### L 100.0100, L501.9985, L501.5200, L501.9520, L500.4050, L500.4100 ####[facility] [address] [place], [address] RBC (Bld) [#/Vol] 4.12 10*6/uL Low 4.6-6.2 [facility] Comment on above: Order Comment: Order Date: 05/19/24Order Info: [id number] - CBCD Performed By: #### L 100.0100, L501.9985, L501.5200, L501.9520, L500.4050, L500.4100 ####[facility] [address] [place], [address] RDW SD 43.1 fl Normal 35.1-43.9 [facility] Comment on above: Order Comment: Order Date: 05/19/24Order Info: [id number] - CBCD Performed By: #### L 100.0100, L501.9985, L501.5200, L501.9520, L500.4050, L500.4100 ####[facility] [address] [place], [address] WBC (Bld) [#/Vol] 5.5 10*3/uL Normal 4.4-11.0 [facility] Comment on above: Order Comment: Order Date: 05/19/24Order Info: [id number] - CBCD Performed By: #### L 100.0100, L501.9985, L501.5200, L501.9520, L500.4050, L500.4100 ####[facility] [address] [place], [place], [address] Calculated very low density lipoprotein (VLDL) cholesterol measurementOrdered By: Davis Armstrong on 05-19-2024 Calculated very low density lipoprotein (VLDL) cholesterol measurement 10 mg/dL 5-40 [facility] VLDL Cholesterol 10 mg/dL 5-40 [facility] Carbon dioxide, total [Moles /volume] in Central venous bloodOrdered By: Davis Armstrong on 05-19-2024 CO2 [Moles/Vol] 19.7 mmol/L Low 21.0-32.0 [facility] Chloride assayOrdered By: Anuradha Armstrong on 05-19-2024 Chloride [Moles/Vol] 106 mmol/L 98-108 [facility] Comprehensive Metabolic Prof ilon 05-19-2024 Albumin [Mass/Vol] 4.1 g/dL Normal 3.4-4.8 [facility] Comment on above: Order Comment: Order Date: 05/19/24Order Info: [id number] - CMPOrder Info: [id number] - LIPIDOrder Info: - MGOrder Info: 3 - TSH Performed By: #### L 100.0100, L501.9985, L501.5200, L501.9520, L500.4050, L500.4100 ####[facility] [address] [place], [place], [id number] Albumin/Globulin [Mass ratio] 1.5 {ratio} Normal 0.9-2.4 [facility] Comment on above: Order Comment: Order Date: 05/19/24Order Info: [id number] - CMPOrder Info: [id number] - LIPIDOrder Info: - MGOrder Info: [id number] - TSH Performed By: #### L 100.0100, L501.9985, L501.5200, L501.9520, L500.4050, L500.4100 ####[facility] [address] [place], [address] ALK PHOS 93 U/L Normal 40-129 [facility] Comment on above: Order Comment: Order Date: 05/19/24Order Info: [id number] - CMPOrder Info: [id number] - LIPIDOrder Info: [id number] - MGOrder Info: [id number] - TSH Performed By: #### L 100.0100, L501.9985, L501.5200, L501.9520, L500.4050, L500.4100 ####[facility] [address] [place], [address] ALT [Catalytic activity/Vol] 16 U/L Normal <=46 [facility] Comment on above: Order Comment: Order Date: 05/19/24Order Info: [id number] - CMPOrder Info: [id number] - LIPIDOrder Info: [id number] - MGOrder Info: [id number] - TSH Performed By: #### L 100.0100, L501.9985, L501.5200, L501.9520, L500.4050, L500.4100 ####[facility] [address] [place], [address] AST [Catalytic activity/Vol] 28 U/L Normal <=37 [facility] Comment on above: Order Comment: Order Date: 05/19/24Order Info: [id number] - CMPOrder Info: [id number] - LIPIDOrder Info: [id number] - MGOrder Info: [id number] - TSH Performed By: #### L 100.0100, L501.9985, L501.5200, L501.9520, L500.4050, L500.4100 ####[facility] [address] [place], [address] Bilirubin [Mass/Vol] 0.61 mg/dL Normal 0.00-1.30 [facility] Comment on above: Order Comment: Order Date: 05/19/24Order Info: [id number] - CMPOrder Info: [id number] - LIPIDOrder Info: [id number] - MGOrder Info: [id number] - TSH Performed By: #### L 100.0100, L501.9985, L501.5200, L501.9520, L500.4050, L500.4100 ####[facility] [address] [place], [address] BUN/CRE 25.9 RATIO High 10-20 [facility] Comment on above: Order Comment: Order Date: 05/19/24Order Info: [id number] - CMPOrder Info: [id number] - LIPIDOrder Info: [id number] - MGOrder Info: 3 - TSH Performed By: #### L 100.0100, L501.9985, L501.5200, L501.9520, L500.4050, L500.4100 ####[facility] [address] [place], [address] Calcium [Mass/Vol] 9.0 mg/dL Normal 7.6-11.0 [facility] Comment on above: Order Comment: Order Date: 05/19/24Order Info: [id number] - CMPOrder Info: [id number] - LIPIDOrder Info: - MGOrder Info: [id number] - TSH Performed By: #### L 100.0100, L501.9985, L501.5200, L501.9520, L500.4050, L500.4100 ####[facility] [address] [place], [address] Chloride [Moles/Vol] 106 mmol/L Normal 98-108 [facility] Comment on above: Order Comment: Order Date: 05/19/24Order Info: [id number] - CMPOrder Info: [id number] - LIPIDOrder Info: [id number] - MGOrder Info: [id number] - TSH Performed By: #### L 100.0100, L501.9985, L501.5200, L501.9520, L500.4050, L500.4100 ####[facility] [address] [place], [place], [address] CO2 [Moles/Vol] 19.7 mmol/L Low 21.0-32.0 [facility] Comment on above: Order Comment: Order Date: 05/19/24Order Info: [id number] - CMPOrder Info: [id number] - LIPIDOrder Info: [id number] - MGOrder Info: [id number] - TSH Performed By: #### L 100.0100, L501.9985, L501.5200, L501.9520, L500.4050, L500.4100 ####[facility] [address] [place], [address] Creatinine [Mass/Vol] 0.69 mg/dL Low 0.70-1.20 [facility] Comment on above: Order Comment: Order Date: 05/19/24Order Info: 07-1 - CMPOrder Info: [id number] - LIPIDOrder Info: [id number] - MGOrder Info: [id number] - TSH Performed By: #### L 100.0100, L501.9985, L501.5200, L501.9520, L500.4050, L500.4100 ####[facility] [address] [place], [place], [address] GAP 13 Normal 5-15 [facility] Comment on above: Order Comment: Order Date: 05/19/24Order Info: [id number] - CMPOrder Info: [id number] - LIPIDOrder Info: [id number] - MGOrder Info: [id number] - TSH Performed By: #### L 100.0100, L501.9985, L501.5200, L501.9520, L500.4050, L500.4100 ####[facility] [address] [place], [place], [address] GFR/1.73 sq M.predicted among non-blacks MDRD (S/P/Bld) [Vol rate/Area] 98 mL/min/{1.73_m2} Normal >60 [facility] Comment on above: Order Comment: Order Date: 05/19/24Order Info: [id number] - CMPOrder Info: [id number] - LIPIDOrder Info: [id number] - MGOrder Info: [id number] - TSH Result Comment: mL/m in/1.73m2 CKD-EPI Creatinine Equation (2020) Performed By: #### L 100.0100, L501.9985, L501.5200, L501.9520, L500.4050, L500.4100 ####[facility] [address] [place], [address] Globulin (S) [Mass/Vol] 2.8 g/dL Normal 2.2-4.2 [facility] Comment on above: Order Comment: Order Date: 05/19/24Order Info: [id number] - CMPOrder Info: - LIPIDOrder Info: - MGOrder Info: [id number] - TSH Performed By: #### L 100.0100, L501.9985, L501.5200, L501.9520, L500.4050, L500.4100 ####[facility] [address] [place], [address] Glucose [Mass/Vol] 89 mg/dL Normal 70-99 [facility] Comment on above: Order Comment: Order Date: 05/19/24Order Info: 07- - CMPOrder Info: - LIPIDOrder Info: - MGOrder Info: [id number] - TSH Performed By: #### L 100.0100, L501.9985, L501.5200, L501.9520, L500.4050, L500.4100 ####[facility] [address] [place], [address] Potassium [Moles/Vol] 3.9 mmol/L Normal 3.3-5.1 [facility] Comment on above: Order Comment: Order Date: 05/19/24Order Info: 86- - CMPOrder Info: - LIPIDOrder Info: [id number] - MGOrder Info: [id number] - TSH Performed By: #### L 100.0100, L501.9985, L501.5200, L501.9520, L500.4050, L500.4100 ####[facility] [address] [place], [place], [address] Sodium [Moles/Vol] 139 mmol/L Normal 133-145 [facility] Comment on above: Order Comment: Order Date: 05/19/24Order Info: [id number] - CMPOrder Info: [id number] - LIPIDOrder Info: - MGOrder Info: [id number] - TSH Performed By: #### L 100.0100, L501.9985, L501.5200, L501.9520, L500.4050, L500.4100 ####[facility] [address] [place], [place], [address] T PROT 6.8 g/dL Normal 5.9-8.4 [facility] Comment on above: Order Comment: Order Date: 05/19/24Order Info: [id number] - CMPOrder Info: - LIPIDOrder Info: - MGOrder Info: [id number] - TSH Performed By: #### L 100.0100, L501.9985, L501.5200, L501.9520, L500.4050, L500.4100 ####[facility] [address] [place], [place], [address] Urea nitrogen [Mass/Vol] 18 mg/dL Normal 4-19 [facility] Comment on above: Order Comment: Order Date: 05/19/24Order Info: [id number] - CMPOrder Info: [id number] - LIPIDOrder Info: - MGOrder Info: [id number] - TSH Performed By: #### L 100.0100, L501.9985, L501.5200, L501.9520, L500.4050, L500.4100 ####[facility] [address] [place], [address] Eosinophil percentageOrdered By: Davis Armstrong on 05-19-2024 Eosinophils/100 WBC (Bld) 2.2 % 0-5 [facility] Erythrocyte distribution wid th ratioOrdered By: Davis Armstrong on 05-19-2024 Erythrocyte distribution width (RBC) [Ratio] 12.7 % 11.6-14.6 [facility] Erythrocyte distribution wid th standard deviationOrdered By: Davis Armstrong on 05-19-2024 Erythrocyte distribution width (RBC) [Entitic vol] 43.1 fL 35.1-43.9 [facility] Erythrocyte distribution width (RBC) [Ratio] 43.1 fl 35.1-43.9 [facility] GFR/1.73 sq M.predicted nirmal g non-blacks MDRD (S/P/Bld) [Vol rate/Area]Ordered By: Davis Armstrong on 05-19-2024 Estimated GFR (MDRD) Non-Af Amer 98 >60 [facility] Comment on above: mL/min/1.73m2 CKD-EP I Creatinine Equation (2020) Glomerular filtration rate ( GFR) estimation/1.73 sq m using serum, plasma, or whole bOrdered By: Davis Armstrong on 05-19-2024 GFR/1.73 sq M.predicted among non-blacks MDRD (S/P/Bld) [Vol rate/Area] 98 mL/min/{1.73_m2} >60 [facility] Comment on above: mL/min/1.73m2 CKD-EP I Creatinine Equation (2020) Hematocrit Auto (Bld) [Volum e fraction]Ordered By: Davis Armstrong on 05-19-2024 Hematocrit (Bld) [Volume fraction] 38.2 % Low 40-54 [facility] Hemoglobin A1con 05-19-2024 HbA1c (Bld) [Mass fraction] 6.4 % Normal <=5.6 [facility] Comment on above: Order Comment: Order Date: 05/19/24Order Info: [id number] - A1C Performed By: #### L 100.0100, L501.9985, L501.5200, L501.9520, L500.4050, L500.4100 ####[facility] [address] [place], [address] Hemoglobin A1c percentageOrd ered By: Davis Armstrong on 05-19-2024 HbA1c (Bld) [Mass fraction] 6.4 % >5.7 [facility] Hemoglobin measurementOrdere d By: Davis Armstrong on 05-19-2024 Hemoglobin (Bld) [Mass/Vol] 12.7 g/dL Low 13.0-16.5 [facility] Immature granulocytes/100 WB C Auto (Bld)Ordered By: Davis Armstrong on 05-19-2024 Immature granulocytes/100 WBC (Bld) 0.400 % 0.0-0.9 [facility] Comment on above: IG% - Immature Granu locytes (promyelocytes, myelocytes and metamyelocytes) > 1% indicates that a LEFT SHIFT is Present. LDL calc ser/plasOrdered By: Davis Armstrong on 05-19-2024 Cholesterol in LDL [Mass/Vol] 61 mg/dL [facility] Comment on above: Qtxxmvhmhh=918-865 m g/dL & Higher Mmky=923 mg/dL or greater LDL Cholesterol, Calculated 61 mg/dL [facility] Comment on above: Oocmawewbd=757-485 m g/dL & Higher Nxxd=659 mg/dL or greater Laboratory - Chemistry and C hemistry - challengeOrdered By: Davis Armstrong on 05-19-2024 AST [Catalytic activity/Vol] 28 U/L <38 [facility] Lipid Profileon 05-19-2024 CHOL:HDL 2.32 Normal [facility] Comment on above: Order Comment: Order Date: 05/19/24Order Info: [id number] - CMPOrder Info: [id number] - LIPIDOrder Info: [id number] - MGOrder Info: [id number] - TSH Performed By: #### L 100.0100, L501.9985, L501.5200, L501.9520, L500.4050, L500.4100 ####[facility] [address] [place], [address] Cholesterol [Mass/Vol] 126 mg/dL Normal <=200 [facility] Comment on above: Order Comment: Order Date: 05/19/24Order Info: [id number] - CMPOrder Info: [id number] - LIPIDOrder Info: [id number] - MGOrder Info: 3 - TSH Result Comment: Chol esterol level, Desirable <200 mg/dL Borderline high cholesterol 200-239 mg/dL High cholesterol >=240 mg/dL Recommendations of the NCEP Adult Treatment Panel for the following risk-cutoff thresholds for the [place] population. Performed By: #### L 100.0100, L501.9985, L501.5200, L501.9520, L500.4050, L500.4100 ####[facility] [address] [place], [address] Cholesterol in HDL [Mass/Vol] 54 mg/dL Normal [facility] Comment on above: Order Comment: Order Date: 05/19/24Order Info: [id number] - CMPOrder Info: [id number] - LIPIDOrder Info: [id number] - MGOrder Info: 3 - TSH Result Comment: [place] onal Cholesterol Education Program (NCEP) guidelines: <40 mg/dL: Low HDL-cholesterol (major risk factor for CHD) >= 60 mg/dL: High HDL-cholesterol (negative risk factor for CHD) HDL-cholesterol is affected by a number of factors, e.g. smoking, exercise, hormones, sex and age. Performed By: #### L 100.0100, L501.9985, L501.5200, L501.9520, L500.4050, L500.4100 ####[facility] [address] [place], [place], [address]) Cholesterol in LDL [Mass/Vol] 61 mg/dL Normal [facility] Comment on above: Order Comment: Order Date: 05/19/24Order Info: [id number] - CMPOrder Info: [id number] - LIPIDOrder Info: [id number] - MGOrder Info: [id number] - TSH Result Comment: Bord frndqh=256-487 mg/dL Higher Xoyf=185 mg/dL or greater Performed By: #### L 100.0100, L501.9985, L501.5200, L501.9520, L500.4050, L500.4100 ####[facility] [address] [place], [address] Cholesterol in VLDL [Mass/Vol] 10 mg/dL Normal 5-40 [facility] Comment on above: Order Comment: Order Date: 05/19/24Order Info: [id number] - CMPOrder Info: [id number] - LIPIDOrder Info: [id number] - MGOrder Info: [id number] - TSH Performed By: #### L 100.0100, L501.9985, L501.5200, L501.9520, L500.4050, L500.4100 ####[facility] [address] [place], [address] Triglyceride [Mass/Vol] 52 mg/dL Normal [facility] Comment on above: Order Comment: Order Date: 05/19/24Order Info: [id number] - CMPOrder Info: [id number] - LIPIDOrder Info: [id number] - MGOrder Info: [id number] - TSH Result Comment: The drugs N-Acetylcysteine and Metamizole may falsely depress this assay. Normal range: <150 mg/dL Borderline High: 150-199 mg/dL High: 200-499 mg/dL Very High: >500 mg/dL Performed By: #### L 100.0100, L501.9985, L501.5200, L501.9520, L500.4050, L500.4100 ####[facility] [id number], [address] Lymphocytes Auto (Unsp spec) [#/Vol]Ordered By: Davis Armstrong on 05-19-2024 Lymphocytes (Bld) [#/Vol] 0.85 10*3/uL 0.83-4.51 [facility] Lymphocytes/100 WBC Auto (Un sp spec)Ordered By: Davis Armstrong on 05-19-2024 Lymphocytes/100 WBC (Bld) 15.5 % Low 19-41 [facility] MCV (mean corpuscular volume ) determinationOrdered By: Davis Armstrong on 05-19-2024 MCV (RBC) [Entitic vol] 92.7 fL 80-94 [facility] Magnesiumon 05-19-2024 Magnesium [Mass/Vol] 1.9 mg/dL Normal 1.5-2.2 [facility] Comment on above: Order Comment: Order Date: 05/19/24Order Info: [id number] - CMPOrder Info: [id number] - LIPIDOrder Info: [id number] - MGOrder Info: [id number] - TSH Performed By: #### L 100.0100, L501.9985, L501.5200, L501.9520, L500.4050, L500.4100 ####[facility] [id number] [place], [address] Magnesium (Unsp spec) [Mass/ Vol]Ordered By: Davis Armstrong on 05-19-2024 Magnesium [Mass/Vol] 1.9 mg/dL 1.5-2.2 [facility] Magnesium measurement (mass/ volume)Ordered By: Davis Armstrong on 05-19-2024 Magnesium (Unsp spec) [Mass/Vol] 1.9 mg/dL 1.5-2.2 [facility] Mean corpuscular hemoglobin (MCH) determinationOrdered By: Davis Armstrong on 05-19-2024 MCH (RBC) [Entitic mass] 30.8 pg 27.0-32.0 [facility] Mean corpuscular hemoglobin concentration (MCHC) determinationOrdered By: Davis Armstrong on 05-19-2024 MCHC (RBC) [Mass/Vol] 33.2 g/dL 32-36 [facility] Mean platelet volume determi nationOrdered By: Davis Armstrong on 05-19-2024 Platelet mean volume (Bld) [Entitic vol] 10.8 fL 6.2-12.0 [facility] Microalbumin,Random Urineon 05-19-2024 MICROALBUMIN,UR 28.6 mg/L Normal NO RANGE EST. [facility] Comment on above: Performed By: #### L 502.0500 ####[facility] [id number] [place], [address] Monocyte percentageOrdered B y: Davis Armstrong on 05-19-2024 Monocytes/100 WBC (Bld) 7.5 % 0-10 [facility] Neutrophil percentageOrdered By: Davis Armstrong on 05-19-2024 Neutrophils/100 WBC (Bld) 73.3 % High 47-70 [facility] Nucleated red blood cell per centageOrdered By: Davis Armstrong on 05-19-2024 Nucleated RBC/100 WBC (Bld) [Ratio] 0 % 0-5 [facility] Platelet countOrdered By: Anuradha Amrstrong on 05-19-2024 Platelets (Bld) [#/Vol] 256 10*3/uL 150-450 [facility] Potassium (Unsp spec) [Mass/ Vol]Ordered By: Davis Armstrong on 05-19-2024 Potassium [Moles/Vol] 3.9 mmol/L 3.3-5.1 [facility] Potassium measurement (mass/ volume)Ordered By: Davis Armstrong on 05-19-2024 Potassium (Unsp spec) [Mass/Vol] 3.9 mmol/L 3.3-5.1 [facility] RBC Auto (Bld) [#/Vol]Ordere d By: Davis Armstrong on 05-19-2024 RBC (Bld) [#/Vol] 4.12 10*6/uL Low 4.6-6.2 [facility] Screening total cholesterol/ high density lipoprotein (HDL) cholesterol ratioOrdered By: Davis Armstrong on 05-19-2024 Cholesterol.total/Choles terol in HDL [Mass ratio] 2.32 {ratio} [facility] Serum creatinine measurement (mass/volume)Ordered By: Davis Armtsrong on 05-19-2024 Creatinine [Mass/Vol] 0.69 mg/dL Low 0.70-1.20 [facility] Serum globulin measurementOr dered By: Davis Armstrong on 05-19-2024 Globulin (S) [Mass/Vol] 2.8 g/dL 2.2-4.2 [facility] Serum glucose measurement (m ass/volume)Ordered By: Davis Armstrong on 05-19-2024 Glucose [Mass/Vol] 89 mg/dL 70-99 [facility] Serum or plasma alanine sands otransferase (ALT) measurementOrdered By: Davis Armstrong on 05-19-2024 ALT [Catalytic activity/Vol] 16 U/L <47 [facility] Serum or plasma albumin ash urement (mass/volume)Ordered By: Davis Armstrong on 05-19-2024 Albumin [Mass/Vol] 4.1 g/dL 3.4-4.8 [facility] Serum or plasma albumin/glob ulin mass ratioOrdered By: Davis Armstrong on 05-19-2024 Albumin/Globulin [Mass ratio] 1.5 {ratio} 0.9-2.4 [facility] Serum or plasma alkaline katty sphatase measurementOrdered By: Davis Armstrong on 05-19-2024 ALP [Catalytic activity/Vol] 93 U/L 40-129 [facility] Serum or plasma calcium ash urement (mass/volume)Ordered By: Davis Armstrong on 05-19-2024 Calcium [Mass/Vol] 9.0 mg/dL 7.6-11.0 [facility] Serum or plasma cholesterol in HDL measurement (mass/volume)Ordered By: Davis Armstrong on 05-19-2024 Cholesterol in HDL [Mass/Vol] 54 mg/dL >40 [facility] Comment on above: National Cholesterol Education Program (NCEP) guidelines:<40 mg/dL: Low HDL-cholesterol (major risk factor for CHD)>= 60 mg/dL: High HDL-cholesterol (negative risk factor for CHD)HDL-cholesterol is affected by a number of factors, e.g. smoking, exercise, hormones, sex and age. Serum or plasma cholesterol measurement (mass/volume)Ordered By: Davis Armstrong on 05-19-2024 Cholesterol [Mass/Vol] 126 mg/dL <201 [facility] Comment on above: Cholesterol level, D esirable <200 mg/dLBorderline high cholesterol 200-239 mg/dLHigh cholesterol >=240 mg/dLRecommendations of the NCEP Adult Treatment Panel for the following risk-cutoff thresholds for the [place] population. Serum or plasma urea nitroge n measurement (mass/volume)Ordered By: Davis Armstrong on 05-19-2024 Urea nitrogen [Mass/Vol] 18 mg/dL 4-19 [facility] Sodium levelOrdered By: Davis Armstrong on 05-19-2024 Sodium [Moles/Vol] 139 mmol/L 133-145 [facility] TSH DL <= 0.005 mIU/L QnOrde red By: Davis Armstrong on 05-19-2024 Thyroid Stimulating Hormone (TSH) 2.270 uIU/mL 0.300-4.200 [facility] TSH Qn 2.270 uIU/mL 0.300-4.200 [facility] Thyroid Stim Hormone (TSH)on 05-19-2024 TSH 2.270 uIU/mL Normal 0.300-4.200 [facility] Comment on above: Order Comment: Order Date: 05/19/24Order Info: [id number] - CMPOrder Info: [id number] - LIPIDOrder Info: [id number] - MGOrder Info: [id number] - TSH Performed By: #### L 100.0100, L501.9985, L501.5200, L501.9520, L500.4050, L500.4100 ####[facility] [id number] [facility] [place], [place], [id number] Total proteinOrdered By: Jarek Armstrong on 05-19-2024 Protein [Mass/Vol] 6.8 g/dL 5.9-8.4 [facility] Triglycerides measurementOrd ered By: Davis Armstrong on 05-19-2024 Triglyceride [Mass/Vol] 52 mg/dL <199 [facility] Comment on above: The drugs N-Acetylcy steine and Metamizole may falsely depress this assay. Normal range: <150 mg/dLBorderline High: 150-199 mg/dLHigh: 200-499 mg/dLVery High: >500 mg/dL Urine albumin measurement wi detection limit of 20 mg/L or less (mass/volume)Ordered By: Davis Armstrong on 05-19-2024 Albumin DL <= 20 mg/L (U) [Mass/Vol] 28.6 mg/L NO RANGE EST. [facility] White blood cell (WBC) count Ordered By: Davis Armstrong on 05-19-2024 WBC (Bld) [#/Vol] 5.5 10*3/uL 4.4-11.0 [facility] PSA,Total - Annual Screenon 01-14-2024 PSA,TOT SCREEN 1.40 ng/mL Normal 0.00-4.00 [facility] Comment on above: Order Comment: Order Date: 01/14/24Order Info: [id number] - PSA Result Comment: This test was performed using the TPSA assay method for the [employer]ella [employer] chemistry system. Values obtained with different assay methods cannot be used interchangably. When changing PSA assays in the course of monitoring a patient, additional sequential testing should be carried out to confirm baseline values. Performed By: #### L 501.9910 ####[facility] [id number], [address] CBC W/Diff, Automatedon 08-16 Absolute Lymph 0.86 X10 3/uL Normal 0.83-4.51 [facility] Comment on above: Order Comment: Order Date: 05/09/23 Order Info: [id number] - CBCD Performed By: #### L 500.4050, L501.9985, L500.4100, L501.5200, L100.0100 #### [facility] [address] [place], [address] Absolute Neut 3.8 X10 3/uL Normal 2.0-7.7 [facility] Comment on above: Order Comment: Order Date: 05/09/23 Order Info: [id number] - CBCD Performed By: #### L 500.4050, L501.9985, L500.4100, L501.5200, L100.0100 #### [facility] [address] [place], [address] Basophils/100 WBC (Bld) 0.9 % Normal 0-1 [facility] Comment on above: Order Comment: Order Date: 05/09/23 Order Info: [id number] - CBCD Performed By: #### L 500.4050, L501.9985, L500.4100, L501.5200, L100.0100 #### [facility] [address] [place], [address] Eosinophils/100 WBC (Bld) 3.6 % Normal 0-5 [facility] Comment on above: Order Comment: Order Date: 05/09/23 Order Info: [id number] - CBCD Performed By: #### L 500.4050, L501.9985, L500.4100, L501.5200, L100.0100 #### [facility] [address] [place], [address] Erythrocyte distribution width (RBC) [Ratio] 12.4 % Normal 11.6-14.6 [facility] Comment on above: Order Comment: Order Date: 05/09/23 Order Info: [id number] - CBCD Performed By: #### L 500.4050, L501.9985, L500.4100, L501.5200, L100.0100 #### [facility] [address] [place], [address] Hematocrit (Bld) [Volume fraction] 40.3 % Normal 40-54 [facility] Comment on above: Order Comment: Order Date: 05/09/23 Order Info: [id number] - CBCD Performed By: #### L 500.4050, L501.9985, L500.4100, L501.5200, L100.0100 #### [facility] [address] [place], [address] Hemoglobin (Bld) [Mass/Vol] 13.4 g/dL Normal 13.0-16.5 [facility] Comment on above: Order Comment: Order Date: 05/09/23 Order Info: [id number] - CBCD Performed By: #### L 500.4050, L501.9985, L500.4100, L501.5200, L100.0100 #### [facility] [address] [place], [address] IG% 0.400 Normal 0.0-0.9 [facility] Comment on above: Order Comment: Order Date: 05/09/23 Order Info: [id number] - CBCD Result Comment: IG% - Immature Granulocytes (promyelocytes, myelocytes and metamyelocytes) > 1% indicates that a LEFT SHIFT is Present. Performed By: #### L 500.4050, L501.9985, L500.4100, L501.5200, L100.0100 #### [facility] [address] [place], [address] Lymphocytes/100 WBC (Bld) 16.1 % Low 19-41 [facility] Comment on above: Order Comment: Order Date: 05/09/23 Order Info: [id number] - CBCD Performed By: #### L 500.4050, L501.9985, L500.4100, L501.5200, L100.0100 #### [facility] [address] [place], [address] MCH (RBC) [Entitic mass] 30.4 pg Normal 27.0-32.0 [facility] Comment on above: Order Comment: Order Date: 05/09/23 Order Info: [id number] - CBCD Performed By: #### L 500.4050, L501.9985, L500.4100, L501.5200, L100.0100 #### [facility] [address] [place], [address] MCHC (RBC) [Mass/Vol] 33.3 g/dL Normal 32-36 [facility] Comment on above: Order Comment: Order Date: 05/09/23 Order Info: [id number] - CBCD Performed By: #### L 500.4050, L501.9985, L500.4100, L501.5200, L100.0100 #### [facility] [address] [place], [address] MCV (RBC) [Entitic vol] 91.4 fL Normal 80-94 [facility] Comment on above: Order Comment: Order Date: 05/09/23 Order Info: [id number] - CBCD Performed By: #### L 500.4050, L501.9985, L500.4100, L501.5200, L100.0100 #### [facility] [address] [place], [address] Monocytes/100 WBC (Bld) 8.4 % Normal 0-10 [facility] Comment on above: Order Comment: Order Date: 05/09/23 Order Info: [id number] - CBCD Performed By: #### L 500.4050, L501.9985, L500.4100, L501.5200, L100.0100 #### [facility] [address] [place], [address] Neutrophils/100 WBC (Bld) 70.6 % High 47-70 [facility] Comment on above: Order Comment: Order Date: 05/09/23 Order Info: [id number] - CBCD Performed By: #### L 500.4050, L501.9985, L500.4100, L501.5200, L100.0100 #### [facility] [address] [place], [address] Nucleated RBC (Bld) [#/Vol] 0 10*3/uL Normal 0-5 [facility] Comment on above: Order Comment: Order Date: 05/09/23 Order Info: [id number] - CBCD Performed By: #### L 500.4050, L501.9985, L500.4100, L501.5200, L100.0100 #### [facility] [address] [place], [address] Platelet mean volume (Bld) [Entitic vol] 10.4 fL Normal 6.2-12.0 [facility] Comment on above: Order Comment: Order Date: 05/09/23 Order Info: [id number] - CBCD Performed By: #### L 500.4050, L501.9985, L500.4100, L501.5200, L100.0100 #### [facility] [address] [place], [address] Platelets (Bld) [#/Vol] 245 10*3/uL Normal 150-450 [facility] Comment on above: Order Comment: Order Date: 05/09/23 Order Info: [id number] - CBCD Performed By: #### L 500.4050, L501.9985, L500.4100, L501.5200, L100.0100 #### [facility] [address] [place], [address] RBC (Bld) [#/Vol] 4.41 10*6/uL Low 4.6-6.2 [facility] Comment on above: Order Comment: Order Date: 05/09/23 Order Info: [id number] - CBCD Performed By: #### L 500.4050, L501.9985, L500.4100, L501.5200, L100.0100 #### [facility] [address] [place], [address] RDW SD 41.7 fl Normal 35.1-43.9 [facility] Comment on above: Order Comment: Order Date: 05/09/23 Order Info: [id number] - CBCD Performed By: #### L 500.4050, L501.9985, L500.4100, L501.5200, L100.0100 #### [facility] [address] [place], [address] WBC (Bld) [#/Vol] 5.3 10*3/uL Normal 4.4-11.0 [facility] Comment on above: Order Comment: Order Date: 05/09/23 Order Info: [id number] - CBCD Performed By: #### L 500.4050, L501.9985, L500.4100, L501.5200, L100.0100 #### [facility] [address] [place], [address] Comprehensive Metabolic Prof ilon 09-10-2023 Albumin [Mass/Vol] 3.7 g/dL Normal 3.2-5.0 [facility] Comment on above: Order Comment: Order Date: 05/09/23 Order Info: [id number] - CMP Order Info: [id number] - LIPID Order Info: [id number] - MG Performed By: #### L 500.4050, L501.9985, L500.4100, L501.5200, L100.0100 #### [facility] [address] [place], [address] Albumin/Globulin [Mass ratio] 1.1 {ratio} Normal 0.9-2.4 [facility] Comment on above: Order Comment: Order Date: 05/09/23 Order Info: [id number] - CMP Order Info: [id number] - LIPID Order Info: [id number] - MG Performed By: #### L 500.4050, L501.9985, L500.4100, L501.5200, L100.0100 #### [facility] [address] [place], [address] ALK P 85 U/L Normal 45-117 [facility] Comment on above: Order Comment: Order Date: 05/09/23 Order Info: [id number] - CMP Order Info: [id number] - LIPID Order Info: [id number] - MG Performed By: #### L 500.4050, L501.9985, L500.4100, L501.5200, L100.0100 #### [facility] [address] [place], [address] ALT [Catalytic activity/Vol] 18 U/L Normal 16-61 [facility] Comment on above: Order Comment: Order Date: 05/09/23 Order Info: [id number] - CMP Order Info: [id number] - LIPID Order Info: [id number] - MG Performed By: #### L 500.4050, L501.9985, L500.4100, L501.5200, L100.0100 #### [facility] [address] [place], [address] AST [Catalytic activity/Vol] 19 U/L Normal 15-37 [facility] Comment on above: Order Comment: Order Date: 05/09/23 Order Info: [id number] - CMP Order Info: - LIPID Order Info: [id number] - MG Performed By: #### L 500.4050, L501.9985, L500.4100, L501.5200, L100.0100 #### [facility] [address] [place], [address] Bilirubin [Mass/Vol] 1.00 mg/dL Normal 0.20-1.00 [facility] Comment on above: Order Comment: Order Date: 05/09/23 Order Info: [id number] - CMP Order Info: - LIPID Order Info: [id number] - MG Result Comment: For patients on eltrombopag therapy, use of Dimension [place] TBIL is not recommended. Performed By: #### L 500.4050, L501.9985, L500.4100, L501.5200, L100.0100 #### [facility] [address] [place], [address] BUN/CRE 23.3 RATIO High 10-20 [facility] Comment on above: Order Comment: Order Date: 05/09/23 Order Info: [id number] - CMP Order Info: [id number] - LIPID Order Info: [id number] - MG Performed By: #### L 500.4050, L501.9985, L500.4100, L501.5200, L100.0100 #### [facility] [address] [place], [address] CA,Total 9.1 mg/dL Normal 8.5-10.1 [facility] Comment on above: Order Comment: Order Date: 05/09/23 Order Info: [id number] - CMP Order Info: [id number] - LIPID Order Info: [id number] - MG Performed By: #### L 500.4050, L501.9985, L500.4100, L501.5200, L100.0100 #### [facility] [address] [place], [address] Chloride [Moles/Vol] 108 mmol/L High 98-107 [facility] Comment on above: Order Comment: Order Date: 05/09/23 Order Info: [id number] - CMP Order Info: [id number] - LIPID Order Info: [id number] - MG Performed By: #### L 500.4050, L501.9985, L500.4100, L501.5200, L100.0100 #### [facility] [address] [place], [address] CO2 [Moles/Vol] 23.0 mmol/L Normal 21.0-32.0 [facility] Comment on above: Order Comment: Order Date: 05/09/23 Order Info: [id number] - CMP Order Info: [id number] - LIPID Order Info: [id number] - MG Performed By: #### L 500.4050, L501.9985, L500.4100, L501.5200, L100.0100 #### [facility] [address] [place], [address] Creatinine [Mass/Vol] 0.86 mg/dL Normal 0.70-1.30 [facility] Comment on above: Order Comment: Order Date: 05/09/23 Order Info: [id number] - CMP Order Info: [id number] - LIPID Order Info: [id number] - MG Result Comment: The validity of the calculated GFR GFRAA in patients over 70 years has not been determined. Clinical correlation is essential. Performed By: #### L 500.4050, L501.9985, L500.4100, L501.5200, L100.0100 #### [facility] [address] [place], [address] EST GFR - AA 113 mL/min Normal >60 [facility] Comment on above: Order Comment: Order Date: 05/09/23 Order Info: [id number] - CMP Order Info: [id number] - LIPID Order Info: [id number] - MG Result Comment: Afri can [place] GFR Calc Performed By: #### L 500.4050, L501.9985, L500.4100, L501.5200, L100.0100 #### [facility] [address] [place], [address] GAP 7 Normal 5-15 [facility] Comment on above: Order Comment: Order Date: 05/09/23 Order Info: [id number] - CMP Order Info: [id number] - LIPID Order Info: [id number] - MG Performed By: #### L 500.4050, L501.9985, L500.4100, L501.5200, L100.0100 #### [facility] [address] [place], [address] GFR/1.73 sq M.predicted among non-blacks MDRD (S/P/Bld) [Vol rate/Area] 93 mL/min/{1.73_m2} Normal >60 [facility] Comment on above: Order Comment: Order Date: 05/09/23 Order Info: [id number] - CMP Order Info: [id number] - LIPID Order Info: [id number] - MG Result Comment: Non- GFR Calc Performed By: #### L 500.4050, L501.9985, L500.4100, L501.5200, L100.0100 #### [facility] [address] [place], [address] Globulin (S) [Mass/Vol] 3.5 g/dL Normal 2.2-4.2 [facility] Comment on above: Order Comment: Order Date: 05/09/23 Order Info: [id number] - CMP Order Info: [id number] - LIPID Order Info: [id number] - MG Performed By: #### L 500.4050, L501.9985, L500.4100, L501.5200, L100.0100 #### [facility] [address] [place], [address] Glucose [Mass/Vol] 105 mg/dL Normal 74-106 [facility] Comment on above: Order Comment: Order Date: 05/09/23 Order Info: [id number]- - CMP Order Info: [id number] - LIPID Order Info: [id number] - MG Result Comment: Fast ing Glucose result from 100 to 125 mg/dL suggests IMPAIRED HOMEOSTASIS per A.D.A. criteria. Performed By: #### L 500.4050, L501.9985, L500.4100, L501.5200, L100.0100 #### [facility] [address] [place], [address] Potassium [Moles/Vol] 3.8 mmol/L Normal 3.5-5.1 [facility] Comment on above: Order Comment: Order Date: 05/09/23 Order Info: [id number] - CMP Order Info: [id number] - LIPID Order Info: [id number] - MG Performed By: #### L 500.4050, L501.9985, L500.4100, L501.5200, L100.0100 #### [facility] [address] [place], [address] Sodium [Moles/Vol] 138 mmol/L Normal 136-145 [facility] Comment on above: Order Comment: Order Date: 05/09/23 Order Info: [id number] - CMP Order Info: [id number] - LIPID Order Info: [id number] - MG Performed By: #### L 500.4050, L501.9985, L500.4100, L501.5200, L100.0100 #### [facility] [address] [place], [address] T PROT 7.2 g/dL Normal 6.4-8.2 [facility] Comment on above: Order Comment: Order Date: 05/09/23 Order Info: [id number] - CMP Order Info: [id number] - LIPID Order Info: [id number] - MG Performed By: #### L 500.4050, L501.9985, L500.4100, L501.5200, L100.0100 #### [facility] [address] [place], [address] Urea nitrogen [Mass/Vol] 20 mg/dL High 7-18 [facility] Comment on above: Order Comment: Order Date: 05/09/23 Order Info: [id number] - CMP Order Info: [id number] - LIPID Order Info: [id number] - MG Performed By: #### L 500.4050, L501.9985, L500.4100, L501.5200, L100.0100 #### [facility] [address] [place], [address] Hemoglobin A1con 09-10-2023 HbA1c (Bld) [Mass fraction] 6.0 % High 3.8-5.6 [facility] Comment on above: Order Comment: Order Date: 05/09/23 Order Info: [id number] - A1C Result Comment: Norm al < 5.7 % Prediabetic 5.7 - 6.4 % Diabetic >or= 6.5 % Please note range changes. Performed By: #### L 500.4050, L501.9985, L500.4100, L501.5200, L100.0100 #### [facility] [address] [place], [address] Lipid Profileon 09-10-2023 Cholesterol [Mass/Vol] 148 mg/dL Normal 200 [facility] Comment on above: Order Comment: Order Date: 05/09/23 Order Info: [id number] - CMP Order Info: [id number] - LIPID Order Info: [id number] - MG Result Comment: <200 mg/dL Desirable 200-240 mg/dL Borderline >240 mg/dL High Risk Performed By: #### L 500.4050, L501.9985, L500.4100, L501.5200, L100.0100 #### [facility] [address] [place], [address] Cholesterol in HDL [Mass/Vol] 60 mg/dL Normal [facility] Comment on above: Order Comment: Order Date: 05/09/23 Order Info: [id number] - CMP Order Info: [id number] - LIPID Order Info: [id number] - MG Result Comment: The drugs N-Acetylcysteine and Metamizole may falsely depress this assay. Reference Range HDL <40 mg/dL Low HDL Cholesterol HDL >or= 60 mg/dL High HDL Cholesterol Performed By: #### L 500.4050, L501.9985, L500.4100, L501.5200, L100.0100 #### [facility] [address] [place], [address] Cholesterol in LDL [Mass/Vol] 74 mg/dL Normal 0-130 [facility] Comment on above: Order Comment: Order Date: 05/09/23 Order Info: [id number] - CMP Order Info: [id number] - LIPID Order Info: [id number] - MG Performed By: #### L 500.4050, L501.9985, L500.4100, L501.5200, L100.0100 #### [facility] [address] [place], [address] Cholesterol in VLDL [Mass/Vol] 14 mg/dL Normal 5-40 [facility] Comment on above: Order Comment: Order Date: 05/09/23 Order Info: [id number] - CMP Order Info: [id number] - LIPID Order Info: [id number] - MG Performed By: #### L 500.4050, L501.9985, L500.4100, L501.5200, L100.0100 #### [facility] [address] [place], [address] Triglyceride [Mass/Vol] 68 mg/dL Normal [facility] Comment on above: Order Comment: Order Date: 05/09/23 Order Info: [id number] - CMP Order Info: [id number] - LIPID Order Info: [id number] - MG Result Comment: The drugs N-Acetylcysteine and Metamizole may falsely depress this assay. Serum Triglycerides Reference Interval Normal <150 mg/dL Borderline high 150 - 199 mg/dL High 200 - 499 mg/dL Very High > or = 500 mg/dL Performed By: #### L 500.4050, L501.9985, L500.4100, L501.5200, L100.0100 #### [facility] [address] [place], [address] Magnesiumon 09-10-2023 Magnesium [Mass/Vol] 2.1 mg/dL Normal 1.6-2.6 [facility] Comment on above: Order Comment: Order Date: 05/09/23 Order Info: [id number] - CMP Order Info: [id number] - LIPID Order Info: [id number] - MG Performed By: #### L 500.4050, L501.9985, L500.4100, L501.5200, L100.0100 #### [facility] [address] [place], [address] Urinalysis, Completeon 09-09 BACTERIA 0 SEEN Normal None Seen [facility] Comment on above: Order Comment: CLEAN CATCH Performed By: #### L 400.0001 ####[facility] [id number] [place], [address] EPI,SQUAMOUS 0 SEEN Normal 0-5 [facility] Comment on above: Order Comment: CLEAN CATCH Performed By: #### L 400.0001 ####[facility] [id number] [place], [address] Mucus Ql (Urine sed) 0 SEEN Normal [facility] Comment on above: Order Comment: CLEAN CATCH Performed By: #### L 400.0001 ####[facility] [id number] [place], [address] RBC 0 SEEN Normal 0-5 [facility] Comment on above: Order Comment: CLEAN CATCH Performed By: #### L 400.0001 ####[facility] [id number] [place], [address] WBC 0 SEEN Normal 0-5 [facility] Comment on above: Order Comment: CLEAN CATCH Performed By: #### L [id number] ####[facility] [id number] [place], [place], [id number] Absolute lymphocyte countOrd ered By: Davis Armstrong on 05-08-2023 Lymphocytes Auto (Unsp spec) [#/Vol] 0.83 10*3/uL 0.83-4.51 [facility] Automated lymphocyte count a s percentage of total leukocytesOrdered By: Davis Armstrong on 05-08-2023 Lymphocytes/100 WBC Auto (Unsp spec) 10.3 % 19-41 [facility] Basophil percentageOrdered B y: Davis Armstrong on 05-08-2023 Basophils/100 WBC (Bld) 0.7 % 0-1 [facility] Bilirubin [Mass/Vol] 1.10 mg/dL 0.20-1.00 [facility] Comment on above: For patients on eltr ombopag therapy, use of Dimension [place] TBIL is not recommended. Chloride [Moles/Vol] 109 mmol/L 98-107 [facility] Cholesterol [Mass/Vol] 139 mg/dL <200 [facility] Comment on above: <200 mg/dL Desirable 200-240 mg/dL Borderline >240 mg/dL High Risk Eosinophils/100 WBC (Bld) 1.1 % 0-5 [facility] Glucose [Mass/Vol] 111 mg/dL 74-106 [facility] Comment on above: Fasting Glucose resu lt from 100 to 125 mg/dL suggests IMPAIRED HOMEOSTASIS per A.D.A. criteria. Hemoglobin (Bld) [Mass/Vol] 13.9 g/dL 13.0-16.5 [facility] Monocytes/100 WBC (Bld) 8.3 % 0-10 [facility] Neutrophils (Bld) [#/Vol] 6.4 10*3/uL 2.0-7.7 [facility] Neutrophils/100 WBC (Bld) 79.2 % 47-70 [facility] Potassium [Moles/Vol] 3.8 mmol/L 3.5-5.1 [facility] Protein [Mass/Vol] 7.3 g/dL 6.4-8.2 [facility] Sodium [Moles/Vol] 136 mmol/L 136-145 [facility] Triglyceride [Mass/Vol] 93 mg/dL <199 [facility] Comment on above: The drugs N-Acetylcy steine and Metamizole may falsely depress this assay.Serum Triglycerides Reference Interval Normal <150 mg/dL Borderline high 150 - 199 mg/dL High 200 - 499 mg/dL Very High > or = 500 mg/dL WBC (Bld) [#/Vol] 8.1 10*3/uL 4.4-11.0 [facility] Bilirubin Test strip Ql (U)O rdered By: Davis Armstrong on 05-08-2023 Bilirubin Ql (U) Negative Negative [facility] Determination of erythrocyte mean corpuscular volume (MCV)Ordered By: Davis Armstrong on 05-08-2023 MCV (RBC) [Entitic vol] 91.5 fL 80-94 [facility] Erythrocyte distribution wid th ratioOrdered By: Davis Armstrong on 05-08-2023 Erythrocyte distribution width (RBC) [Ratio] 12.9 % 11.6-14.6 [facility] Erythrocyte distribution wid th standard deviationOrdered By: Davis Armstrong on 05-08-2023 Erythrocyte distribution width (RBC) [Entitic vol] 43.3 fL 35.1-43.9 [facility] Hematocrit Auto (Bld) [Volum e fraction]Ordered By: Davis Armstrong on 05-08-2023 Hematocrit (Bld) [Volume fraction] 41.0 % 40-54 [facility] Immature granulocytes/100 WB C Auto (Bld)Ordered By: Davis Armstrong on 05-08-2023 Immature granulocytes/100 WBC (Bld) 0.400 % 0.0-0.9 [facility] Comment on above: IG% - Immature Granu locytes (promyelocytes, myelocytes and metamyelocytes) > 1% indicates that a LEFT SHIFT is Present. Ketones Test strip Ql (U)Ord ered By: Davis Armstrong on 05-08-2023 Ketones Ql (U) Negative Negative [facility] - Chemistry and C hemistry - challengeOrdered By: Davis Armstrong on 05-08-2023 Albumin/Globulin [Mass ratio] 1.1 {ratio} 0.9-2.4 [facility] ALP [Catalytic activity/Vol] 99 U/L 45-117 [facility] ALT [Catalytic activity/Vol] 18 U/L 16-61 [facility] Cholesterol in HDL [Mass/Vol] 58 mg/dL >40 [facility] Comment on above: The drugs N-Acetylcy steine and Metamizole may falsely depress this assay. Reference Range HDL <40 mg/dL Low HDL Cholesterol HDL >or= 60 mg/dL High HDL Cholesterol Cholesterol in LDL [Mass/Vol] 62 mg/dL 0-130 [facility] CO2 [Moles/Vol] 24.0 mmol/L 21.0-32.0 [facility] Globulin (S) [Mass/Vol] 3.4 g/dL 2.2-4.2 [facility] Magnesium [Mass/Vol] 2.0 mg/dL 1.6-2.6 [facility] Urea nitrogen/Creatinine [Mass ratio] 26.6 mg/mg 10-20 [facility] - Hematology and Cell countsOrdered By: Davis Armstrong on 05-08-2023 MCH (RBC) [Entitic mass] 31.0 pg 27.0-32.0 [facility] MCHC (RBC) [Mass/Vol] 33.9 g/dL 32-36 [facility] Nucleated RBC/100 WBC (Bld) [Ratio] 0 % 0-5 [facility] Platelet mean volume (Bld) [Entitic vol] 9.9 fL 6.2-12.0 [facility] Platelets (Bld) [#/Vol] 265 10*3/uL 150-450 [facility] Nitrite Test strip Ql (U)Ord ered By: Davis Armstrong on 05-08-2023 Nitrite Ql (U) Negative Negative [facility] No Panel InformationOrdered By: Davis Armstrong on 05-08-2023 Estimated GFR (MDRD) Amer 139 mL/min >60 [facility] Comment on above: GFR Calc Estimated GFR (MDRD) Non-Af Amer 115 mL/min >60 [facility] Comment on above: Non- GFR Calc VLDL Cholesterol 19 mg/dL 5-40 [facility] Protein Test strip Ql (U)Ord ered By: Davis Armstrong on 05-08-2023 Protein Ql (U) 15 mg/dl Negative [facility] RBC Auto (Bld) [#/Vol]Ordere d By: Davis Armstrong on 05-08-2023 RBC (Bld) [#/Vol] 4.48 10*6/uL 4.6-6.2 [facility] Serum or plasma calcium ash urement (mass/volume)Ordered By: Davis Armstrong on 05-08-2023 Calcium [Mass/Vol] 9.1 mg/dL 8.5-10.1 [facility] Serum or plasma creatinine m easurement (mass/volume)Ordered By: Davis Armstrong on 05-08-2023 Creatinine [Mass/Vol] 0.71 mg/dL 0.70-1.30 [facility] Comment on above: The validity of the calculated GFR & GFRAA in patients over 70 years has not been determined. Clinical correlation is essential. Serum or plasma thyroid stim ulating hormone (TSH) measurement (units/volume)Ordered By: Davis Armstrong on 05-08-2023 TSH Qn 2.31 uIU/mL 0.358-3.74 [facility] Serum or plasma urea nitroge n measurement (mass/volume)Ordered By: Davis Armstrong on 05-08-2023 Urea nitrogen [Mass/Vol] 19 mg/dL 7-18 [facility] Thin prep Papanicolaou smear with manual screeningOrdered By: Davis Armstrong on 05-08-2023 Thin prep Papanicolaou smear with manual screening 3.9 g/dL 3.2-5.0 [facility] Thin prep Papanicolaou smear with manual screening 17 U/L 15-37 [facility] Thin prep Papanicolaou smear with manual screening 3 5-15 [facility] Urine blood detectionOrdered By: Davis Armstrong on 05-08-2023 RBC Ql (U) 10 /ul Negative [facility] Urine clarityOrdered By: Jarek Armstrong on 05-08-2023 Clarity (U) Clear Clear [facility] Urine color determinationOrd ered By: Davis Armstrong on 05-08-2023 Color (U) Straw Yellow [facility] Urine glucose detectionOrder ed By: Davis Armstrong on 05-08-2023 Glucose Ql (U) Normal mg/dl Normal [facility] Urine leukocyte esterase det ection by dipstickOrdered By: Davis Armstrong on 05-08-2023 Leukocyte esterase Test strip Ql (U) Negative Negative [facility] Urine pHOrdered By: Davis waterman on 05-08-2023 pH (U) 6.0 [pH] 5.0 - 8.0 [facility] Urine specific gravity measu rementOrdered By: Davis Armstrong on 05-08-2023 Specific gravity (U) [Rel density] 1.015 1.002-1.030 [facility] Urine urobilinogen measureme ntOrdered By: Davis Armstrong on 05-08-2023 Urobilinogen Ql (U) Normal mg/dl Normal [facility] Whole blood hemoglobin A1c/t otal hemoglobin ratio (mass fraction)Ordered By: Davis Armstrong on 05-08-2023 HbA1c (Bld) [Mass fraction] 6.3 % 3.8-5.6 [facility] Comment on above: Normal < 5.7 % Predi abetic 5.7 - 6.4 % Diabetic >or= 6.5 % Please note range changes. No Panel InformationOrdered By: Davis Armstrong on 01-08-2023 Prostate Specific Antigen Screen 1.48 ng/mL 0.00-4.00 [facility] Comment on above: This test was perfor med using the TPSA assay method [facility] the[facility]. Values obtained with differentassay methods cannot be used interchangably.When changing PSA assays in the course of monitoring apatient, additional sequential testing should be carriedout to confirm baseline values. Absolute lymphocyte countOrd ered By: Dane Sterling on 12-27-2022 Lymphocytes Auto (Unsp spec) [#/Vol] 0.82 10*3/uL 0.83-4.51 [facility] Basophil percentageOrdered B y: Dane Sterling on 12-27-2022 Basophils/100 WBC (Bld) 1.1 % 0-1 [facility] Chloride [Moles/Vol] 108 mmol/L 98-107 [facility] Eosinophils/100 WBC (Bld) 4.0 % 0-5 [facility] Glucose [Mass/Vol] 108 mg/dL 74-106 [facility] Comment on above: Fasting Glucose resu lt from 100 to 125 mg/dL suggests IMPAIRED HOMEOSTASIS per A.D.A. criteria. Neutrophils (Bld) [#/Vol] 3.6 10*3/uL 2.0-7.7 [facility] Neutrophils/100 WBC (Bld) 68.5 % 47-70 [facility] Potassium [Moles/Vol] 3.4 mmol/L 3.5-5.1 [facility] Sodium [Moles/Vol] 138 mmol/L 136-145 [facility] WBC (Bld) [#/Vol] 5.2 10*3/uL 4.4-11.0 [facility] Blood erythrocytes count (nu mber/volume)Ordered By: Dane Sterling on 12-27-2022 RBC (Bld) [#/Vol] 4.41 10*6/uL 4.6-6.2 [facility] Blood hemoglobin measurement (mass/volume)Ordered By: Dane Sterling on 12-27-2022 Hemoglobin (Bld) [Mass/Vol] 13.5 g/dL 13.0-16.5 [facility] Blood lymphocytes/100 leukoc ytesOrdered By: Dane Sterling on 12-27-2022 Lymphocytes/100 WBC (Bld) 15.7 % 19-41 [facility] Blood monocytes/100 leukocyt esOrdered By: Dane Sterling on 12-27-2022 Monocytes/100 WBC (Bld) 10.3 % 0-10 [facility] Blood platelet mean volumeOr dered By: Dane Sterling on 12-27-2022 Platelet mean volume (Bld) [Entitic vol] 10.1 fL 6.2-12.0 [facility] Determination of erythrocyte mean corpuscular volume (MCV)Ordered By: Dane Sterling on 12-27-2022 MCV (RBC) [Entitic vol] 92.7 fL 80-94 [facility] Hematocrit Auto (Bld) [Volum e fraction]Ordered By: Dane Sterling on 12-27-2022 Hematocrit (Bld) [Volume fraction] 40.9 % 40-54 [facility] - Chemistry and C hemistry - challengeOrdered By: Dane Sterling on 12-27-2022 CO2 [Moles/Vol] 27.0 mmol/L 21.0-32.0 [facility] Urea nitrogen/Creatinine [Mass ratio] 23.6 mg/mg 10-20 [facility] - Hematology and Cell countsOrdered By: Dane Sterling on 12-27-2022 Erythrocyte distribution width (RBC) [Entitic vol] 42.6 fL 35.1-43.9 [facility] Erythrocyte distribution width (RBC) [Ratio] 12.5 % 11.6-14.6 [facility] Immature granulocytes/100 WBC (Bld) 0.400 % 0.0-0.9 [facility] Comment on above: IG% - Immature Granu locytes (promyelocytes, myelocytes and metamyelocytes) > 1% indicates that a LEFT SHIFT is Present. MCH (RBC) [Entitic mass] 30.6 pg 27.0-32.0 [facility] Nucleated RBC/100 WBC (Bld) [Ratio] 0 % 0-5 [facility] MCHC Auto (RBC) [Mass/Vol]Or dered By: Dane Sterling on 12-27-2022 MCHC (RBC) [Mass/Vol] 33.0 g/dL 32-36 [facility] No Panel InformationOrdered By: Dane Sterling on 12-27-2022 D-Dimer Quantitative (PE/DVT) 0.56 FEU/ug/m 0.27-0.49 [facility] Comment on above: D-Dimer ELEVATED (>0 .49): Additional studies and clinicalassessments are indicated to conclude diagnosis of:Deep Vein Thrombosis (DVT) or Pulmonary Embolism (PE)CRITICAL VALUE VERIFIED. CALLED TO TRAM GRANADOS (ER)12/27/22 0857 [address].RESULTS READ BACK BY SAME. Estimated Creatinine Clearance Calc 79.18 ml/min [facility] Estimated GFR (MDRD) Amer 121 mL/min >60 [facility] Comment on above: GFR Calc Estimated GFR (MDRD) Non-Af Amer 100 mL/min >60 [facility] Comment on above: Non- GFR Calc Troponin I High Sensitivity 8 pg/mL 3.0-78.0 [facility] Comment on above: Please Note: New Candie t Units and Gender Specific Reference Ranges. For more information see Policy Stat Procedure [place] High Sensitivity Troponin (TNIH) and attachments. Platelets bldOrdered By: Cody Sterling on 12-27-2022 Platelets (Bld) [#/Vol] 235 10*3/uL 150-450 [facility] Serum or plasma calcium ash urement (mass/volume)Ordered By: Dane Sterling on 12-27-2022 Calcium [Mass/Vol] 8.6 mg/dL 8.5-10.1 [facility] Serum or plasma creatinine m easurement (mass/volume)Ordered By: Dane Sterling on 12-27-2022 Creatinine [Mass/Vol] 0.80 mg/dL 0.70-1.30 [facility] Comment on above: The validity of the calculated GFR & GFRAA in patients over 70 years has not been determined. Clinical correlation is essential. Serum or plasma urea nitroge n measurement (mass/volume)Ordered By: Dane Sterling on 12-27-2022 Urea nitrogen [Mass/Vol] 19 mg/dL 7-18 [facility] Thin prep Papanicolaou smear with manual screeningOrdered By: Dane Sterling on 12-27-2022 Thin prep Papanicolaou smear with manual screening 3 5-15 [facility] Absolute lymphocyte countOrd ered By: Davis Armstrong on 10-08-2022 Lymphocytes Auto (Unsp spec) [#/Vol] 0.65 10*3/uL 0.83-4.51 [facility] Basophil percentageOrdered B y: Davis Armstrong on 10-08-2022 Basophil percentage 0 SEEN /hpf 0-5 [facility] Basophils/100 WBC (Bld) 0.8 % 0-1 [facility] Bilirubin [Mass/Vol] 0.90 mg/dL 0.20-1.00 [facility] Comment on above: For patients on eltr ombopag therapy, use of Dimension [place] TBIL is not recommended. Chloride [Moles/Vol] 109 mmol/L 98-107 [facility] Cholesterol [Mass/Vol] 136 mg/dL <200 [facility] Comment on above: <200 mg/dL Desirable 200-240 mg/dL Borderline >240 mg/dL High Risk Eosinophils/100 WBC (Bld) 1.6 % 0-5 [facility] Glucose [Mass/Vol] 103 mg/dL 74-106 [facility] Comment on above: Fasting Glucose resu lt from 100 to 125 mg/dL suggests IMPAIRED HOMEOSTASIS per A.D.A. criteria. Neutrophils (Bld) [#/Vol] 3.7 10*3/uL 2.0-7.7 [facility] Neutrophils/100 WBC (Bld) 75.3 % 47-70 [facility] Potassium [Moles/Vol] 3.6 mmol/L 3.5-5.1 [facility] Protein [Mass/Vol] 7.2 g/dL 6.4-8.2 [facility] Sodium [Moles/Vol] 138 mmol/L 136-145 [facility] Triglyceride [Mass/Vol] 65 mg/dL <199 [facility] Comment on above: The drugs N-Acetylcy steine and Metamizole may falsely depress this assay.Serum Triglycerides Reference Interval Normal <150 mg/dL Borderline high 150 - 199 mg/dL High 200 - 499 mg/dL Very High > or = 500 mg/dL WBC (Bld) [#/Vol] 4.9 10*3/uL 4.4-11.0 [facility] Bilirubin Test strip Ql (U)O rdered By: Davis Armstrong on 10-08-2022 Bilirubin Ql (U) Negative Negative [facility] Blood erythrocytes count (nu mber/volume)Ordered By: Davis Armstrong on 10-08-2022 RBC (Bld) [#/Vol] 4.49 10*6/uL 4.6-6.2 [facility] Blood hemoglobin measurement (mass/volume)Ordered By: Davis Armstrong on 10-08-2022 Hemoglobin (Bld) [Mass/Vol] 13.8 g/dL 13.0-16.5 [facility] Blood lymphocytes/100 leukoc ytesOrdered By: Davis Armstrong on 10-08-2022 Lymphocytes/100 WBC (Bld) 13.2 % 19-41 [facility] Blood monocytes/100 leukocyt esOrdered By: Davis Armstrong on 10-08-2022 Monocytes/100 WBC (Bld) 8.9 % 0-10 [facility] Blood platelet mean volumeOr dered By: Davis Armstrong on 10-08-2022 Platelet mean volume (Bld) [Entitic vol] 10.9 fL 6.2-12.0 [facility] Determination of erythrocyte mean corpuscular volume (MCV)Ordered By: Davis Armstrong on 10-08-2022 MCV (RBC) [Entitic vol] 92.2 fL 80-94 [facility] Hematocrit Auto (Bld) [Volum e fraction]Ordered By: Davis Armstrong on 10-08-2022 Hematocrit (Bld) [Volume fraction] 41.4 % 40-54 [facility] Iron measurement (mass/mass) Ordered By: Davis Armstrong on 10-08-2022 Iron (Unsp spec) [Mass/Mass] 83 ug/dL 65-175 [facility] Ketones Test strip Ql (U)Ord ered By: Davis Armstrong on 10-08-2022 Ketones Ql (U) Negative Negative [facility] - Chemistry and C hemistry - challengeOrdered By: Davis Armstrong on 10-08-2022 ALP [Catalytic activity/Vol] 89 U/L 45-117 [facility] ALT [Catalytic activity/Vol] 20 U/L 16-61 [facility] CO2 [Moles/Vol] 24.0 mmol/L 21.0-32.0 [facility] Cobalamin (Vitamin B12) [Mass/Vol] 393 pg/mL 211-911 [facility] Globulin (S) [Mass/Vol] 3.4 g/dL 2.2-4.2 [facility] Urea nitrogen/Creatinine [Mass ratio] 24.4 mg/mg 10-20 [facility] - Hematology and Cell countsOrdered By: Davis Armstrong on 10-08-2022 Erythrocyte distribution width (RBC) [Entitic vol] 42.4 fL 35.1-43.9 [facility] Erythrocyte distribution width (RBC) [Ratio] 12.4 % 11.6-14.6 [facility] Immature granulocytes/100 WBC (Bld) 0.200 % 0.0-0.9 [facility] Comment on above: IG% - Immature Granu locytes (promyelocytes, myelocytes and metamyelocytes) > 1% indicates that a LEFT SHIFT is Present. MCH (RBC) [Entitic mass] 30.7 pg 27.0-32.0 [facility] Nucleated RBC/100 WBC (Bld) [Ratio] 0 % 0-5 [facility] MCHC Auto (RBC) [Mass/Vol]Or dered By: Davis Armstrong on 10-08-2022 MCHC (RBC) [Mass/Vol] 33.3 g/dL 32-36 [facility] Mucus LM Ql (Urine sed)Order ed By: Davis Armstrong on 10-08-2022 Mucus Ql (Urine sed) 0 SEEN /hpf [facility] Nitrite Test strip Ql (U)Ord ered By: Davis Armstrong on 10-08-2022 Nitrite Ql (U) Negative Negative [facility] No Panel InformationOrdered By: Davis Armstrong on 10-08-2022 Estimated GFR (MDRD) Amer 154 mL/min >60 [facility] Comment on above: GFR Calc Estimated GFR (MDRD) Non-Af Amer 127 mL/min >60 [facility] Comment on above: Non- GFR Calc Thyroid Stimulating Hormone (TSH) 2.06 uIU/mL 0.358-3.74 [facility] Total Iron Binding Capacity 349 ug/dL 250-450 [facility] Platelets bldOrdered By: Jarek Armstrong on 10-08-2022 Platelets (Bld) [#/Vol] 213 10*3/uL 150-450 [facility] Protein Test strip Ql (U)Ord ered By: Davis Armstrong on 10-08-2022 Protein Ql (U) Negative Negative [facility] Serum or plasma albumin ash urement (mass/volume)Ordered By: Davis Armstrong on 10-08-2022 Albumin [Mass/Vol] 3.8 g/dL 3.2-5.0 [facility] Serum or plasma albumin/glob ulin mass ratioOrdered By: Davis Armstrong on 10-08-2022 Albumin/Globulin [Mass ratio] 1.1 {ratio} 0.9-2.4 [facility] [facility] Serum or plasma calcium ash urement (mass/volume)Ordered By: Davis Armstrong on 10-08-2022 Calcium [Mass/Vol] 8.8 mg/dL 8.5-10.1 [facility] Serum or plasma cholesterol in HDL measurement (mass/volume)Ordered By: Davis Armstrong on 10-08-2022 Cholesterol in HDL [Mass/Vol] 58 mg/dL >40 [facility] Comment on above: The drugs N-Acetylcy steine and Metamizole may falsely depress this assay. Reference Range HDL <40 mg/dL Low HDL Cholesterol HDL >or= 60 mg/dL High HDL Cholesterol Serum or plasma cholesterol in VLDL measurement (mass/volume)Ordered By: Davis Armstrong on 10-08-2022 Cholesterol in VLDL [Mass/Vol] 13 mg/dL 5-40 [facility] Serum or plasma creatinine m easurement (mass/volume)Ordered By: Davis Armstrong on 10-08-2022 Creatinine [Mass/Vol] 0.66 mg/dL 0.70-1.30 [facility] Comment on above: The validity of the calculated GFR & GFRAA in patients over 70 years has not been determined. Clinical correlation is essential. Serum or plasma ferritin elham surement (mass/volume)Ordered By: Davis Armstrong on 10-08-2022 Ferritin [Mass/Vol] 187 ng/mL 26-388 [facility] Serum or plasma folate measu rement (mass/volume)Ordered By: Davis Armstrong on 10-08-2022 Folate [Mass/Vol] 10.00 ng/mL 3.1-55.4 [facility] Serum or plasma low density lipoprotein (LDL) cholesterol measurement (mass/volume)Ordered By: Davis Armstrong on 10-08-2022 Cholesterol in LDL [Mass/Vol] 65 mg/dL 0-130 [facility] Serum or plasma urea nitroge n measurement (mass/volume)Ordered By: Davis Armstrong on 10-08-2022 Urea nitrogen [Mass/Vol] 16 mg/dL 7-18 [facility] Squamous epithelial cells de tection in urine sediment by light microscopyOrdered By: Davis Armstrong on 10-08-2022 Epithelial cells.squamous LM Ql (Urine sed) 0 SEEN /hpf 0-5 [facility] Thin prep Papanicolaou smear with manual screeningOrdered By: Davis Armstrong on 10-08-2022 Thin prep Papanicolaou smear with manual screening 24 U/L 15-37 [facility] Thin prep Papanicolaou smear with manual screening 5 5-15 [facility] Urine blood detectionOrdered By: Davis Armstrong on 10-08-2022 RBC Ql (U) Negative Negative [facility] RBC Ql (U) 0 SEEN /hpf 0-5 [facility] Urine clarityOrdered By: Jarek Armstrong on 10-08-2022 Clarity (U) Clear Clear [facility] Urine color determinationOrd ered By: Davis Armstrong on 10-08-2022 Color (U) Straw Yellow [facility] Urine glucose detectionOrder ed By: Davis Armstrong on 10-08-2022 Glucose Ql (U) Normal mg/dl Normal [facility] Urine leukocyte esterase det ection by dipstickOrdered By: Davis Armstrong on 10-08-2022 Leukocyte esterase Test strip Ql (U) Negative Negative [facility] Urine pHOrdered By: Davis waterman on 10-08-2022 pH (U) 7.0 [pH] 5.0 - 8.0 [facility] Urine sediment bacteria coun t by microscopy (number/high power field)Ordered By: Davis Armstrong on 10-08-2022 Bacteria LM.HPF (Urine sed) [#/Area] 0 /[HPF] None Seen [facility] Urine specific gravity measu rementOrdered By: Davis Armstrong on 10-08-2022 Specific gravity (U) [Rel density] 1.010 1.002-1.030 [facility] Urobilinogen Auto test strip Ql (U)Ordered By: Davis Armstrong on 10-08-2022 Urobilinogen Ql (U) Normal mg/dl Normal [facility] Whole blood hemoglobin A1c/t otal hemoglobin ratio (mass fraction)Ordered By: Davis Armstrong on 10-08-2022 HbA1c (Bld) [Mass fraction] 6.1 % 3.8-5.6 [facility] Comment on above: Normal < 5.7 % Predi abetic 5.7 - 6.4 % Diabetic >or= 6.5 % Please note range changes. Basophil percentageOrdered B y: Dr. Mayes on 03-28-2022 Chloride [Moles/Vol] 107 mmol/L 98-107 [facility] Glucose [Mass/Vol] 92 mg/dL 74-106 [facility] Potassium [Moles/Vol] 3.7 mmol/L 3.5-5.1 [facility] Sodium [Moles/Vol] 140 mmol/L 136-145 [facility] WBC (Bld) [#/Vol] 5.3 10*3/uL 4.4-11.0 [facility] Blood erythrocytes count (nu mber/volume)Ordered By: Dr. Mayes on 03-28-2022 RBC (Bld) [#/Vol] 4.32 10*6/uL 4.6-6.2 [facility] Blood hemoglobin measurement (mass/volume)Ordered By: Dr. Mayes on 03-28-2022 Hemoglobin (Bld) [Mass/Vol] 13.2 g/dL 13.0-16.5 [facility] Blood platelet mean volumeOr dered By: Dr. Mayes on 03-28-2022 Platelet mean volume (Bld) [Entitic vol] 10.8 fL 6.2-12.0 [facility] Determination of erythrocyte mean corpuscular volume (MCV)Ordered By: Dr. Mayes on 03-28-2022 MCV (RBC) [Entitic vol] 92.4 fL 80-94 [facility] Hematocrit Auto (Bld) [Volum e fraction]Ordered By: Dr. Mayes on 03-28-2022 Hematocrit (Bld) [Volume fraction] 39.9 % 40-54 [facility] Laboratory - Chemistry and C hemistry - challengeOrdered By: Dr. Mayes on 03-28-2022 CO2 [Moles/Vol] 26.0 mmol/L 21.0-32.0 [facility] Urea nitrogen/Creatinine [Mass ratio] 25.2 mg/mg 10-20 [facility] Laboratory - Hematology and Cell countsOrdered By: Dr. Mayes on 03-28-2022 Erythrocyte distribution width (RBC) [Entitic vol] 43.5 fL 35.1-43.9 [facility] Erythrocyte distribution width (RBC) [Ratio] 13.0 % 11.6-14.6 [facility] MCH (RBC) [Entitic mass] 30.6 pg 27.0-32.0 [facility] MCHC Auto (RBC) [Mass/Vol]Or dered By: Dr. Mayes on 03-28-2022 MCHC (RBC) [Mass/Vol] 33.1 g/dL 32-36 [facility] No Panel InformationOrdered By: Dr. Mayes on 03-28-2022 Estimated GFR (MDRD) Amer 140 mL/min >60 [facility] Comment on above: GFR Calc Estimated GFR (MDRD) Non-Af Amer 116 mL/min >60 [facility] Comment on above: Non- GFR Calc Platelets bldOrdered By: Dr. Mayes on 03-28-2022 Platelets (Bld) [#/Vol] 233 10*3/uL 150-450 [facility] Serum or plasma calcium ash urement (mass/volume)Ordered By: Dr. Mayes on 03-28-2022 Calcium [Mass/Vol] 8.8 mg/dL 8.5-10.1 [facility] Serum or plasma creatinine m easurement (mass/volume)Ordered By: Dr. Mayes on 03-28-2022 Creatinine [Mass/Vol] 0.71 mg/dL 0.70-1.30 [facility] Comment on above: The validity of the calculated GFR & GFRAA in patients over 70 years has not been determined. Clinical correlation is essential. Serum or plasma urea nitroge n measurement (mass/volume)Ordered By: Dr. Mayes on 03-28-2022 Urea nitrogen [Mass/Vol] 18 mg/dL 7-18 [facility] Thin prep Papanicolaou smear with manual screeningOrdered By: Dr. Mayes on 03-28-2022 Thin prep Papanicolaou smear with manual screening 7 5-15 [facility] Absolute lymphocyte countOrd ered By: Dr. Hatch on 01-16-2022 Lymphocytes Auto (Unsp spec) [#/Vol] 0.63 10*3/uL 0.83-4.51 [facility] Basophil percentageOrdered B y: Dr. Hatch on 01-16-2022 Basophil percentage 10-25 SEEN /hpf 0-5 [facility] Basophils/100 WBC (Bld) 0.6 % 0-1 [facility] Chloride [Moles/Vol] 106 mmol/L 98-107 [facility] Eosinophils/100 WBC (Bld) 0.6 % 0-5 [facility] Glucose [Mass/Vol] 153 mg/dL 74-106 [facility] Comment on above: Fasting Glucose resu lt greater than or equal to 126 mg/dL suggests DIABETES MELLITUS per A.D.A. criteria. Neutrophils (Bld) [#/Vol] 6.6 10*3/uL 2.0-7.7 [facility] Neutrophils/100 WBC (Bld) 83.2 % 47-70 [facility] Potassium [Moles/Vol] 3.3 mmol/L 3.5-5.1 [facility] Sodium [Moles/Vol] 137 mmol/L 136-145 [facility] WBC (Bld) [#/Vol] 7.9 10*3/uL 4.4-11.0 [facility] Bilirubin Test strip Ql (U)O rdered By: Dr. Hatch on 01-16-2022 Bilirubin Ql (U) Negative Negative [facility] Blood erythrocytes count (nu mber/volume)Ordered By: Dr. Hatch on 01-16-2022 RBC (Bld) [#/Vol] 4.32 10*6/uL 4.6-6.2 [facility] Blood hemoglobin measurement (mass/volume)Ordered By: Dr. Hatch on 01-16-2022 Hemoglobin (Bld) [Mass/Vol] 13.4 g/dL 13.0-16.5 [facility] Blood lymphocytes/100 leukoc ytesOrdered By: Dr. Hatch on 01-16-2022 Lymphocytes/100 WBC (Bld) 8.0 % 19-41 [facility] Blood monocytes/100 leukocyt esOrdered By: Dr. Hatch on 01-16-2022 Monocytes/100 WBC (Bld) 7.2 % 0-10 [facility] Blood platelet mean volumeOr dered By: Dr. Hatch on 01-16-2022 Platelet mean volume (Bld) [Entitic vol] 10.3 fL 6.2-12.0 [facility] Determination of erythrocyte mean corpuscular volume (MCV)Ordered By: Dr. Hatch on 01-16-2022 MCV (RBC) [Entitic vol] 91.4 fL 80-94 [facility] Glucose Glucometer (BldC) [M ass/Vol]Ordered By: Dr. Mayes on 01-16-2022 Glucose [Mass/Vol] 111 mg/dL 74-106 [facility] Comment on above: MANAGEMENT OF PATIEN T CARE PER NURSING PROTOCOL Hematocrit Auto (Bld) [Volum e fraction]Ordered By: Dr. Hatch on 01-16-2022 Hematocrit (Bld) [Volume fraction] 39.5 % 40-54 [facility] Ketones Test strip Ql (U)Ord ered By: Dr. Hatch on 01-16-2022 Ketones Ql (U) Negative Negative [facility] Laboratory - Chemistry and C hemistry - challengeOrdered By: Dr. Hatch on 01-16-2022 CO2 [Moles/Vol] 25.0 mmol/L 21.0-32.0 [facility] Urea nitrogen/Creatinine [Mass ratio] 23.4 mg/mg 10-20 [facility] Laboratory - Hematology and Cell countsOrdered By: Dr. Hatch on 01-16-2022 Erythrocyte distribution width (RBC) [Entitic vol] 42.2 fL 35.1-43.9 [facility] Erythrocyte distribution width (RBC) [Ratio] 12.7 % 11.6-14.6 [facility] Immature granulocytes/100 WBC (Bld) 0.400 % 0.0-0.9 [facility] Comment on above: IG% - Immature Granu locytes (promyelocytes, myelocytes and metamyelocytes) > 1% indicates that a LEFT SHIFT is Present. MCH (RBC) [Entitic mass] 31.0 pg 27.0-32.0 [facility] Nucleated RBC/100 WBC (Bld) [Ratio] 0 % 0-5 [facility] MCHC Auto (RBC) [Mass/Vol]Or dered By: Dr. Hatch on 01-16-2022 MCHC (RBC) [Mass/Vol] 33.9 g/dL 32-36 [facility] Mucus LM Ql (Urine sed)Order ed By: Dr. Hatch on 01-16-2022 Mucus Ql (Urine sed) 0 SEEN /hpf [facility] Nitrite Test strip Ql (U)Ord ered By: Dr. Hatch on 01-16-2022 Nitrite Ql (U) Negative Negative [facility] No Panel InformationOrdered By: Dr. Hatch on 01-16-2022 Estimated Creatinine Clearance Calc 70.38 ml/min [facility] Estimated GFR (MDRD) Amer 107 mL/min >60 [facility] Comment on above: GFR Calc Estimated GFR (MDRD) Non-Af Amer 89 mL/min >60 [facility] Comment on above: Non- GFR Calc Platelets bldOrdered By: Dr. Hatch on 01-16-2022 Platelets (Bld) [#/Vol] 236 10*3/uL 150-450 [facility] Protein Test strip Ql (U)Ord ered By: Dr. Hatch on 01-16-2022 Protein Ql (U) 500 mg/dl Negative [facility] Serum or plasma calcium ash urement (mass/volume)Ordered By: Dr. Hatch on 01-16-2022 Calcium [Mass/Vol] 8.5 mg/dL 8.5-10.1 [facility] Serum or plasma creatinine m easurement (mass/volume)Ordered By: Dr. Hatch on 01-16-2022 Creatinine [Mass/Vol] 0.90 mg/dL 0.70-1.30 [facility] Comment on above: The validity of the calculated GFR & GFRAA in patients over 70 years has not been determined. Clinical correlation is essential. Serum or plasma urea nitroge n measurement (mass/volume)Ordered By: Dr. Htach on 01-16-2022 Urea nitrogen [Mass/Vol] 21 mg/dL 7-18 [facility] Squamous epithelial cells de tection in urine sediment by light microscopyOrdered By: Dr. Hatch on 01-16-2022 Epithelial cells.squamous LM Ql (Urine sed) 0 SEEN /hpf 0-5 [facility] Thin prep Papanicolaou smear with manual screeningOrdered By: Dr. Hatch on 01-16-2022 Thin prep Papanicolaou smear with manual screening 6 5-15 [facility] Urine blood detectionOrdered By: Dr. Hatch on 01-16-2022 RBC Ql (U) 250 /ul Negative [facility] RBC Ql (U) > 100 SEEN /hpf 0-5 [facility] Urine clarityOrdered By: Dr. Hatch on 01-16-2022 Clarity (U) Turbid Clear [facility] Urine color determinationOrd ered By: Dr. Hatch on 01-16-2022 Color (U) Red Yellow [facility] Urine glucose detectionOrder ed By: Dr. Hatch on 01-16-2022 Glucose Ql (U) 50 mg/dl Normal [facility] Urine leukocyte esterase det ection by dipstickOrdered By: Dr. Hatch on 01-16-2022 Leukocyte esterase Test strip Ql (U) 25 /ul Negative [facility] Urine pHOrdered By: Dr. Lawson wu on 01-16-2022 pH (U) 7.0 [pH] 5.0 - 8.0 [facility] Urine sediment bacteria coun t by microscopy (number/high power field)Ordered By: Dr. Hatch on 01-16-2022 Bacteria LM.HPF (Urine sed) [#/Area] 0 /[HPF] None Seen [facility] Urine specific gravity measu rementOrdered By: Dr. Hatch on 01-16-2022 Specific gravity (U) [Rel density] 1.010 1.002-1.030 [facility] Urobilinogen Auto test strip Ql (U)Ordered By: Dr. Hatch on 01-16-2022 Urobilinogen Ql (U) Normal mg/dl Normal [facility] Glucose Glucometer (BldC) [M ass/Vol]Ordered By: Dr. Mayes on 12-19-2021 Glucose [Mass/Vol] 99 mg/dL 74-106 [facility] Comment on above: MANAGEMENT OF PATIEN T CARE PER NURSING PROTOCOL Absolute lymphocyte countOrd ered By: Dr. Armstrong on 12-18-2021 Lymphocytes Auto (Unsp spec) [#/Vol] 0.70 10*3/uL 0.83-4.51 [facility] Basophil percentageOrdered B y: Dr. Armstrong on 12-18-2021 Basophils/100 WBC (Bld) 0.6 % 0-1 [facility] Bilirubin [Mass/Vol] 1.00 mg/dL 0.20-1.00 [facility] Comment on above: For patients on eltr ombopag therapy, use of Dimension [place] TBIL is not recommended. Chloride [Moles/Vol] 107 mmol/L 98-107 [facility] Cholesterol [Mass/Vol] 120 mg/dL <200 [facility] Comment on above: <200 mg/dL Desirable 200-240 mg/dL Borderline >240 mg/dL High Risk Eosinophils/100 WBC (Bld) 0.7 % 0-5 [facility] Glucose [Mass/Vol] 95 mg/dL 74-106 [facility] Neutrophils (Bld) [#/Vol] 9.0 10*3/uL 2.0-7.7 [facility] Neutrophils/100 WBC (Bld) 84.2 % 47-70 [facility] Potassium [Moles/Vol] 3.7 mmol/L 3.5-5.1 [facility] Protein [Mass/Vol] 7.0 g/dL 6.4-8.2 [facility] Sodium [Moles/Vol] 139 mmol/L 136-145 [facility] Triglyceride [Mass/Vol] 53 mg/dL <199 [facility] Comment on above: The drugs N-Acetylcy steine and Metamizole may falsely depress this assay.Serum Triglycerides Reference Interval Normal <150 mg/dL Borderline high 150 - 199 mg/dL High 200 - 499 mg/dL Very High > or = 500 mg/dL WBC (Bld) [#/Vol] 10.7 10*3/uL 4.4-11.0 [facility] Blood erythrocytes count (nu mber/volume)Ordered By: Dr. Armstrong on 12-18-2021 RBC (Bld) [#/Vol] 4.39 10*6/uL 4.6-6.2 [facility] Blood hemoglobin measurement (mass/volume)Ordered By: Dr. Armstrong on 12-18-2021 Hemoglobin (Bld) [Mass/Vol] 13.6 g/dL 13.0-16.5 [facility] Blood lymphocytes/100 leukoc ytesOrdered By: Dr. Armstrong on 12-18-2021 Lymphocytes/100 WBC (Bld) 6.6 % 19-41 [facility] Blood monocytes/100 leukocyt esOrdered By: Dr. Armstrong on 12-18-2021 Monocytes/100 WBC (Bld) 7.4 % 0-10 [facility] Blood platelet mean volumeOr dered By: Dr. Armstrong on 12-18-2021 Platelet mean volume (Bld) [Entitic vol] 11.0 fL 6.2-12.0 [facility] Determination of erythrocyte mean corpuscular volume (MCV)Ordered By: Dr. Armstrong on 12-18-2021 MCV (RBC) [Entitic vol] 92.7 fL 80-94 [facility] Hematocrit Auto (Bld) [Volum e fraction]Ordered By: Dr. Armstrong on 12-18-2021 Hematocrit (Bld) [Volume fraction] 40.7 % 40-54 [facility] Iron measurement (mass/mass) Ordered By: Dr. Armstrong on 12-18-2021 Iron (Unsp spec) [Mass/Mass] 32 ug/dL 65-175 [facility] Laboratory - Chemistry and C hemistry - challengeOrdered By: Dr. Armstrong on 12-18-2021 ALP [Catalytic activity/Vol] 79 U/L 45-117 [facility] ALT [Catalytic activity/Vol] 22 U/L 16-61 [facility] CO2 [Moles/Vol] 26.0 mmol/L 21.0-32.0 [facility] Cobalamin (Vitamin B12) [Mass/Vol] 534 pg/mL 211-911 [facility] Globulin (S) [Mass/Vol] 3.5 g/dL 2.2-4.2 [facility] Transferrin [Mass/Vol] 211 mg/dL 177-329 [facility] Comment on above: Performed at: [address] [id number] Director: Scooby Downs PhD, Phone: [phone] Urea nitrogen/Creatinine [Mass ratio] 23.4 mg/mg 10-20 [facility] Laboratory - Hematology and Cell countsOrdered By: Dr. Armstrong on 12-18-2021 Erythrocyte distribution width (RBC) [Entitic vol] 43.7 fL 35.1-43.9 [facility] Erythrocyte distribution width (RBC) [Ratio] 12.6 % 11.6-14.6 [facility] Immature granulocytes/100 WBC (Bld) 0.500 % 0.0-0.9 [facility] Comment on above: IG% - Immature Granu locytes (promyelocytes, myelocytes and metamyelocytes) > 1% indicates that a LEFT SHIFT is Present. MCH (RBC) [Entitic mass] 31.0 pg 27.0-32.0 [facility] Nucleated RBC/100 WBC (Bld) [Ratio] 0 % 0-5 [facility] MCHC Auto (RBC) [Mass/Vol]Or dered By: Dr. Armstrong on 12-18-2021 MCHC (RBC) [Mass/Vol] 33.4 g/dL 32-36 [facility] No Panel InformationOrdered By: Dr. Armstrong on 12-18-2021 Estimated GFR (MDRD) Amer 137 mL/min >60 [facility] Comment on above: GFR Calc Estimated GFR (MDRD) Non-Af Amer 114 mL/min >60 [facility] Comment on above: Non- GFR Calc Prostate Specific Antigen Screen 0.82 ng/mL 0.00-4.00 [facility] Comment on above: This test was perfor med using the TPSA assay method [facility]. Values obtained with differentassay methods cannot be used interchangably.When changing PSA assays in the course of monitoring apatient, additional sequential testing should be carriedout to confirm baseline values. Total Iron Binding Capacity 269 ug/dL 250-450 [facility] Platelets bldOrdered By: Dr. Armstrong on 12-18-2021 Platelets (Bld) [#/Vol] 262 10*3/uL 150-450 [facility] Serum or plasma albumin ash urement (mass/volume)Ordered By: Dr. Armstrong on 12-18-2021 Albumin [Mass/Vol] 3.5 g/dL 3.2-5.0 [facility] Serum or plasma albumin/glob ulin mass ratioOrdered By: Dr. Armstrong on 12-18-2021 Albumin/Globulin [Mass ratio] 1.0 {ratio} 0.9-2.4 [facility] Serum or plasma calcium ash urement (mass/volume)Ordered By: Dr. Armstrong on 12-18-2021 Calcium [Mass/Vol] 9.0 mg/dL 8.5-10.1 [facility] Serum or plasma cholesterol in HDL measurement (mass/volume)Ordered By: Dr. Armstrong on 12-18-2021 Cholesterol in HDL [Mass/Vol] 61 mg/dL >40 [facility] Comment on above: The drugs N-Acetylcy steine and Metamizole may falsely depress this assay. Reference Range HDL <40 mg/dL Low HDL Cholesterol HDL >or= 60 mg/dL High HDL Cholesterol Serum or plasma cholesterol in VLDL measurement (mass/volume)Ordered By: Dr. Armstrong on 12-18-2021 Cholesterol in VLDL [Mass/Vol] 11 mg/dL 5-40 [facility] Serum or plasma creatinine m easurement (mass/volume)Ordered By: Dr. Armstrong on 12-18-2021 Creatinine [Mass/Vol] 0.72 mg/dL 0.70-1.30 [facility] Comment on above: The validity of the calculated GFR & GFRAA in patients over 70 years has not been determined. Clinical correlation is essential. Serum or plasma ferritin elham surement (mass/volume)Ordered By: Dr. Armstrong on 12-18-2021 Ferritin [Mass/Vol] 339 ng/mL 26-388 [facility] Serum or plasma low density lipoprotein (LDL) cholesterol measurement (mass/volume)Ordered By: Dr. Armstrong on 12-18-2021 Cholesterol in LDL [Mass/Vol] 48 mg/dL 0-130 [facility] Serum or plasma urea nitroge n measurement (mass/volume)Ordered By: Dr. Armstrong on 12-18-2021 Urea nitrogen [Mass/Vol] 17 mg/dL 7-18 [facility] Thin prep Papanicolaou smear with manual screeningOrdered By: Dr. Armstrong on 12-18-2021 Thin prep Papanicolaou smear with manual screening 20 U/L 15-37 [facility] Thin prep Papanicolaou smear with manual screening 6 5-15 [facility] Whole blood hemoglobin A1c/t otal hemoglobin ratio (mass fraction)Ordered By: Dr. Armstrong on 12-18-2021 HbA1c (Bld) [Mass fraction] 6.1 % 3.8-5.6 [facility] Comment on above: Normal < 5.7 % Predi abetic 5.7 - 6.4 % Diabetic >or= 6.5 % Please note range changes. Absolute lymphocyte counton 12-02-2021 Lymphocytes Auto (Unsp spec) [#/Vol] 0.63 10*3/uL 0.83-4.51 [facility] Work Phone: Basophil percentageon 2021 Basophil percentage 0-5 SEEN /hpf 0-5 [facility] Work Phone: Basophils/100 WBC (Bld) 0.6 % 0-1 [facility] Work Phone: Bilirubin [Mass/Vol] 1.00 mg/dL 0.20-1.00 [facility] Work Phone: Comment on above: For patients on eltr ombopag therapy, use of Dimension [place] TBIL is not recommended. Chloride [Moles/Vol] 109 mmol/L 98-107 [facility] Work Phone: Eosinophils/100 WBC (Bld) 0.4 % 0-5 [facility] Work Phone: Glucose [Mass/Vol] 111 mg/dL 74-106 [facility] Work Phone: Comment on above: Fasting Glucose resu lt from 100 to 125 mg/dL suggests IMPAIRED HOMEOSTASIS per A.D.A. criteria. Neutrophils (Bld) [#/Vol] 9.1 10*3/uL 2.0-7.7 [facility] Work Phone: Neutrophils/100 WBC (Bld) 83.8 % 47-70 [facility] Work Phone: Potassium [Moles/Vol] 3.7 mmol/L 3.5-5.1 [address] [facility] Work Phone: Protein [Mass/Vol] 7.2 g/dL 6.4-8.2 [place] [facility] Work Phone: Sodium [Moles/Vol] 144 mmol/L 136-145 [place] [facility] Work Phone: WBC (Bld) [#/Vol] 10.9 10*3/uL 4.4-11.0 [facility]: Bilirubin Test strip Ql (U)o n 12-02-2021 Bilirubin Ql (U) Negative Negative [facility] Work Phone: Blood erythrocytes count (nu mber/volume)on 12-02-2021 RBC (Bld) [#/Vol] 4.65 10*6/uL 4.6-6.2 [facility] Work Phone: Blood hemoglobin measurement (mass/volume)on 12-02-2021 Hemoglobin (Bld) [Mass/Vol] 14.4 g/dL 13.0-16.5 [facility] Work Phone: Blood lymphocytes/100 leukoc yteson 12-02-2021 Lymphocytes/100 WBC (Bld) 5.8 % 19-41 [facility] Work Phone: Blood monocytes/100 leukocyt eson 12-02-2021 Monocytes/100 WBC (Bld) 9.1 % 0-10 [facility] Work Phone: Blood platelet mean volumeon 12-02-2021 Platelet mean volume (Bld) [Entitic vol] 10.4 fL 6.2-12.0 [facility] Work Phone: Determination of erythrocyte mean corpuscular volume (MCV)on 12-02-2021 MCV (RBC) [Entitic vol] 94.2 fL 80-94 [facility] Work Phone: Hematocrit Auto (Bld) [Volum e fraction]on 12-02-2021 Hematocrit (Bld) [Volume fraction] 43.8 % 40-54 [facility] Work Phone: [phone] Ketones Test strip Ql (U)on 12-02-2021 Ketones Ql (U) Negative Negative [facility] Work Phone: [phone] Laboratory - Chemistry and C hemistry - challengeon 12-02-2021 ALP [Catalytic activity/Vol] 71 U/L 45-117 [facility] Work Phone: [phone] ALT [Catalytic activity/Vol] 21 U/L 16-61 [facility] Work Phone: [phone] CO2 [Moles/Vol] 27.0 mmol/L 21.0-32.0 [facility] Work Phone: [phone] Globulin (S) [Mass/Vol] 3.4 g/dL 2.2-4.2 [facility] Work Phone: [phone] Lipase [Catalytic activity/Vol] 112 U/L 73-393 [facility] Work Phone: [phone] Urea nitrogen/Creatinine [Mass ratio] 22.2 mg/mg 10-20 [facility] Work Phone: [phone] Laboratory - Hematology and Cell countson 12-02-2021 Erythrocyte distribution width (RBC) [Entitic vol] 44.7 fL 35.1-43.9 [facility] Work Phone: [phone] Erythrocyte distribution width (RBC) [Ratio] 13.1 % 11.6-14.6 [facility] Work Phone: [phone] Immature granulocytes/100 WBC (Bld) 0.300 % 0.0-0.9 [facility] Work Phone: [phone] Comment on above: IG% - Immature Granu locytes (promyelocytes, myelocytes and metamyelocytes) > 1% indicates that a LEFT SHIFT is Present. MCH (RBC) [Entitic mass] 31.0 pg 27.0-32.0 [facility] Work Phone: [phone] Nucleated RBC/100 WBC (Bld) [Ratio] 0 % 0-5 [facility] Work Phone: [phone] MCHC Auto (RBC) [Mass/Vol]on 12-02-2021 MCHC (RBC) [Mass/Vol] 32.9 g/dL 32-36 [facility] Work Phone: [phone] Mucus LM Ql (Urine sed)on Mucus Ql (Urine sed) 0 SEEN /hpf [facility] Work Phone: Nitrite Test strip Ql (U)on 12-02-2021 Nitrite Ql (U) Negative Negative [facility] Work Phone: [phone] No Panel Informationon 12-02 Estimated Creatinine Clearance Calc 51.00 ml/min [facility] Work Phone: [phone] Estimated GFR (MDRD) Amer 73 mL/min >60 [facility] Work Phone: [phone] Comment on above: GFR Calc Estimated GFR (MDRD) Non-Af Amer 60 mL/min >60 [facility] Work Phone: Comment on above: Non- GFR Calc Platelets bldon 12-02-2021 Platelets (Bld) [#/Vol] 216 10*3/uL 150-450 [facility] Work Phone: [phone] Protein Test strip Ql (U)on 12-02-2021 Protein Ql (U) 15 mg/dl Negative [facility] Work Phone: [phone] Serum or plasma albumin ash urement (mass/volume)on 12-02-2021 Albumin [Mass/Vol] 3.8 g/dL 3.2-5.0 [facility] Work Phone: [phone] Serum or plasma albumin/glob ulin mass ratioon 12-02-2021 Albumin/Globulin [Mass ratio] 1.1 {ratio} 0.9-2.4 [facility] Work Phone: [phone] Serum or plasma calcium ash urement (mass/volume)on 12-02-2021 Calcium [Mass/Vol] 9.2 mg/dL 8.5-10.1 [facility] Work Phone: [phone] Serum or plasma creatinine m easurement (mass/volume)on 12-02-2021 Creatinine [Mass/Vol] 1.26 mg/dL 0.70-1.30 [facility] Work Phone: Comment on above: The validity of the calculated GFR & GFRAA in patients over 70 years has not been determined. Clinical correlation is essential. Serum or plasma urea nitroge n measurement (mass/volume)on 12-02-2021 Urea nitrogen [Mass/Vol] 28 mg/dL -18 [facility] Work Phone: [phone] Squamous epithelial cells de tection in urine sediment by light microscopyon 12-02-2021 Epithelial cells.squamous LM Ql (Urine sed) 0 SEEN /hpf 0-5 [facility] Work Phone: Thin prep Papanicolaou smear with manual screeningon 12-02-2021 Thin prep Papanicolaou smear with manual screening 25 U/L 15-37 [facility] Work Phone: Thin prep Papanicolaou smear with manual screening 8 5-15 [facility] Work Phone: Urine blood detectionon 11-15 RBC Ql (U) 150 /ul Negative [facility] Work Phone: [phone] RBC Ql (U) 5-10 SEEN /hpf 0-5 [facility] Work Phone: [phone] Urine clarityon 12-02-2021 Clarity (U) Clear Clear [facility] Work Phone: Urine color determinationon 12-02-2021 Color (U) Yellow Yellow [facility] Work Phone: Urine glucose detectionon Glucose Ql (U) Normal mg/dl Normal [facility] Work Phone: [phone] Urine leukocyte esterase det ection by dipstickon 12-02-2021 Leukocyte esterase Test strip Ql (U) Negative Negative [facility] Work Phone: [phone] Urine pHon 12-02-2021 pH (U) 6.0 [pH] 5.0 - 8.0 [facility] Work Phone: [phone] Urine sediment bacteria coun t by microscopy (number/high power field)on 12-02-2021 Bacteria LM.HPF (Urine sed) [#/Area] RARE /hpf None Seen [facility] Work Phone: Urine specific gravity measu rementon 12-02-2021 Specific gravity (U) [Rel density] 1.015 1.002-1.030 [facility] Work Phone: Urobilinogen Auto test strip Ql (U)on 12-02-2021 Urobilinogen Ql (U) Normal mg/dl Normal [facility] Work Phone: Absolute lymphocyte counton 10-02-2021 Lymphocytes Auto (Unsp spec) [#/Vol] 0.89 10*3/uL 0.83-4.51 [facility] Work Phone: Basophil percentageon 2021 Basophils/100 WBC (Bld) 1.2 % 0-1 [facility] Work Phone: Bilirubin [Mass/Vol] 0.80 mg/dL 0.20-1.00 [facility] Work Phone: Comment on above: For patients on eltr ombopag therapy, use of Dimension [place] TBIL is not recommended. Chloride [Moles/Vol] 107 mmol/L 98-107 [facility] Work Phone: Cholesterol [Mass/Vol] 132 mg/dL <200 [facility] Work Phone: Comment on above: <200 mg/dL Desirable 200-240 mg/dL Borderline >240 mg/dL High Risk Eosinophils/100 WBC (Bld) 2.7 % 0-5 [facility] Work Phone: Glucose [Mass/Vol] 95 mg/dL 74-106 [facility] Work Phone: Neutrophils (Bld) [#/Vol] 3.3 10*3/uL 2.0-7.7 [facility] Work Phone: Neutrophils/100 WBC (Bld) 68.0 % 47-70 [facility] Work Phone: Potassium [Moles/Vol] 3.7 mmol/L 3.5-5.1 [facility] Work Phone: [phone] Protein [Mass/Vol] 6.6 g/dL 6.4-8.2 [facility] Work Phone: [phone] Sodium [Moles/Vol] 140 mmol/L 136-145 [facility] Work Phone: [phone] Triglyceride [Mass/Vol] 54 mg/dL <199 [facility] Work Phone: [phone] Comment on above: The drugs N-Acetylcy steine and Metamizole may falsely depress this assay.Serum Triglycerides Reference Interval Normal <150 mg/dL Borderline high 150 - 199 mg/dL High 200 - 499 mg/dL Very High > or = 500 mg/dL WBC (Bld) [#/Vol] 4.8 10*3/uL 4.4-11.0 [facility] Work Phone: Blood erythrocytes count (nu mber/volume)on 10-02-2021 RBC (Bld) [#/Vol] 4.07 10*6/uL 4.6-6.2 [facility] Work Phone: [phone] Blood hemoglobin measurement (mass/volume)on 10-02-2021 Hemoglobin (Bld) [Mass/Vol] 12.9 g/dL 13.0-16.5 [facility] Work Phone: Blood lymphocytes/100 leukoc yteson 10-02-2021 Lymphocytes/100 WBC (Bld) 18.5 % 19-41 [facility] Work Phone: [phone] Blood monocytes/100 leukocyt eson 10-02-2021 Monocytes/100 WBC (Bld) 9.4 % 0-10 [facility] Work Phone: Blood platelet mean volumeon 10-02-2021 Platelet mean volume (Bld) [Entitic vol] 10.8 fL 6.2-12.0 [facility] Work Phone: [phone] Determination of erythrocyte mean corpuscular volume (MCV)on 10-02-2021 MCV (RBC) [Entitic vol] 95.3 fL 80-94 [facility] Work Phone: [phone] Hematocrit Auto (Bld) [Volum e fraction]on 10-02-2021 Hematocrit (Bld) [Volume fraction] 38.8 % 40-54 [facility] Work Phone: [phone] Iron measurement (mass/mass) on 10-02-2021 Iron (Unsp spec) [Mass/Mass] 104 ug/dL 65-175 [facility] Work Phone: [phone] Laboratory - Chemistry and C hemistry - challengeon 10-02-2021 Cobalamin (Vitamin B12) [Mass/Vol] 449 pg/mL 211-911 [facility] Work Phone: ALP [Catalytic activity/Vol] 68 U/L 45-117 [facility] Work Phone: [phone] ALT [Catalytic activity/Vol] 21 U/L 16-61 [facility] Work Phone: [phone] CO2 [Moles/Vol] 27.0 mmol/L 21.0-32.0 [facility] Work Phone: [phone] Globulin (S) [Mass/Vol] 3.1 g/dL 2.2-4.2 [facility] Work Phone: [phone] Transferrin [Mass/Vol] 229 mg/dL 177-329 [facility] Work Phone: [phone] Comment on above: Performed at: [address] [id number] Director: Scooby Downs PhD, Phone: [phone] Urea nitrogen/Creatinine [Mass ratio] 31.4 mg/mg 10-20 [facility] Work Phone: [phone] Laboratory - Hematology and Cell countson 10-02-2021 Erythrocyte distribution width (RBC) [Entitic vol] 43.9 fL 35.1-43.9 [facility] Work Phone: [phone] Erythrocyte distribution width (RBC) [Ratio] 12.5 % 11.6-14.6 [facility] Work Phone: [phone] Immature granulocytes/100 WBC (Bld) 0.200 % 0.0-0.9 [facility] Work Phone: Comment on above: IG% - Immature Granu locytes (promyelocytes, myelocytes and metamyelocytes) > 1% indicates that a LEFT SHIFT is Present. MCH (RBC) [Entitic mass] 31.7 pg 27.0-32.0 [facility] Work Phone: Nucleated RBC/100 WBC (Bld) [Ratio] 0 % 0-5 [facility] Work Phone: [phone] MCHC Auto (RBC) [Mass/Vol]on 10-02-2021 MCHC (RBC) [Mass/Vol] 33.2 g/dL 32-36 [facility] Work Phone: No Panel Informationon 10-02 Estimated GFR (MDRD) Amer 143 mL/min >60 [facility] Work Phone: Comment on above: GFR Calc Estimated GFR (MDRD) Non-Af Amer 118 mL/min >60 [facility] Work Phone: Comment on above: Non- GFR Calc Total Iron Binding Capacity 285 ug/dL 250-450 [facility] Work Phone: Platelets bldon 10-02-2021 Platelets (Bld) [#/Vol] 231 10*3/uL 150-450 [facility] Work Phone: [phone] Serum or plasma albumin ash urement (mass/volume)on 10-02-2021 Albumin [Mass/Vol] 3.5 g/dL 3.2-5.0 [facility] Work Phone: Serum or plasma albumin/glob ulin mass ratioon 10-02-2021 Albumin/Globulin [Mass ratio] 1.1 {ratio} 0.9-2.4 [facility] Work Phone: [phone] Serum or plasma calcium ash urement (mass/volume)on 10-02-2021 Calcium [Mass/Vol] 8.7 mg/dL 8.5-10.1 [facility] Work Phone: [phone] Serum or plasma cholesterol in HDL measurement (mass/volume)on 10-02-2021 Cholesterol in HDL [Mass/Vol] 57 mg/dL >40 [facility] Work Phone: Comment on above: The drugs N-Acetylcy steine and Metamizole may falsely depress this assay. Reference Range HDL <40 mg/dL Low HDL Cholesterol HDL >or= 60 mg/dL High HDL Cholesterol Serum or plasma cholesterol in VLDL measurement (mass/volume)on 10-02-2021 Cholesterol in VLDL [Mass/Vol] 11 mg/dL 5-40 [facility] Work Phone: [phone] Serum or plasma creatinine m easurement (mass/volume)on 10-02-2021 Creatinine [Mass/Vol] 0.70 mg/dL 0.70-1.30 [facility] Work Phone: Comment on above: The validity of the calculated GFR & GFRAA in patients over 70 years has not been determined. Clinical correlation is essential. Serum or plasma ferritin elham surement (mass/volume)on 10-02-2021 Ferritin [Mass/Vol] 290 ng/mL 26-388 [facility] Work Phone: Serum or plasma iron saturat ion measurement (mass fraction)on 10-02-2021 Iron saturation [Mass fraction] 36.5 % 15.0-55.0 [facility] Work Phone: [phone] Serum or plasma low density lipoprotein (LDL) cholesterol measurement (mass/volume)on 10-02-2021 Cholesterol in LDL [Mass/Vol] 64 mg/dL 0-130 [facility] Work Phone: [phone] Serum or plasma urea nitroge n measurement (mass/volume)on 10-02-2021 Urea nitrogen [Mass/Vol] 22 mg/dL 7-18 [facility] Work Phone: [phone] Thin prep Papanicolaou smear with manual screeningon 10-02-2021 Thin prep Papanicolaou smear with manual screening 29 U/L 15-37 [facility] Work Phone: [phone] Thin prep Papanicolaou smear with manual screening 6 5-15 [facility] Work Phone: Whole blood hemoglobin A1c/t otal hemoglobin ratio (mass fraction)on 10-02-2021 HbA1c (Bld) [Mass fraction] 6.0 % 3.8-5.6 [facility] Work Phone: Comment on above: Normal < 5.7 % Predi abetic 5.7 - 6.4 % Diabetic >or= 6.5 % Please note range changes. Vital Signs Date Time Vital Sign Value Performing Clinician Faci lity 07-23-2024 11:37-0400 Body temperature 98.2 [degF] Dr. Davis Armstrong MD Work Phone: [phone] [place] [address] 07-23-2024 11:37-0400 Diastolic blood pressure 78 mm[Hg] Dr. Davis Armstrong MD Work Phone: [phone] [place] [address] 07-23-2024 11:37-0400 Heart rate 80 /min Dr. Davis Armstrong MD Work Phone: [phone] [place] [address] 07-23-2024 11:37-0400 Respiratory rate 18 /min Dr. Davis Armstrong MD Work Phone: [phone] [place] [address] 07-23-2024 11:37-0400 SaO2% (BldA) [Mass fraction] 97 % Dr. Davis Armstrong MD Work Phone: [facility] 07-23-2024 11:37-0400 Systolic blood pressure 148 mm[Hg] Dr. Davis Armstrong MD Work Phone: [facility] 07-23-2024 07:05-0400 Body height 170.[address] Davis Armstrong MD Work Phone: [facility] 07-23-2024 07:05-0400 Body mass index (BMI) [Ratio] 31.6 kg/m2 Dr. Davis Armstrong MD Work Phone: [facility] 07-23-2024 07:05-0400 Body weight 91.[address] Davis Armstrong MD Work Phone: [phone] [place] [address] 12-27-2022 11:00-0400 Diastolic blood pressure 86 mm[Hg] [facility] 12-27-2022 11:00-0400 Systolic blood pressure 141 mm[Hg] [facility] 12-27-2022 09:36-0400 Heart rate 92 /min [facility] 12-27-2022 09:36-0400 Respiratory rate 26 /min [facility] 12-27-2022 09:36-0400 SaO2% (BldA) [Mass fraction] 99 % [facility] 12-27-2022 07:36-0400 Body height 170.[address] [facility] 12-27-2022 07:36-0400 Body mass index (BMI) [Ratio] 31.3 kg/m2 [facility] 12-27-2022 07:36-0400 Body temperature 97.2 [degF] [facility] 12-27-2022 07:36-0400 Body weight 90.[address] [facility] 01-18-2022 17:03-0400 Body height 170.[address] [facility] 01-18-2022 17:03-0400 Body mass index (BMI) [Ratio] 30.5 kg/m2 [facility] 01-18-2022 17:03-0400 Body temperature 98.7 [degF] [facility] 01-18-2022 17:03-0400 Body weight 88.[address] [facility] 01-18-2022 17:03-0400 Diastolic blood pressure 96 mm[Hg] [facility] 01-18-2022 17:03-0400 Heart rate 113 /min [facility] 01-18-2022 17:03-0400 Respiratory rate 18 /min [facility] 01-18-2022 17:03-0400 SaO2% (BldA) [Mass fraction] 94 % [facility] 01-18-2022 17:03-0400 Systolic blood pressure 145 mm[Hg] [facility] 01-18-2022 12:06-0400 Body temperature 98.2 [degF] [facility] 01-18-2022 12:06-0400 Diastolic blood pressure 80 mm[Hg] [facility] 01-18-2022 12:06-0400 Heart rate 77 /min [facility] 01-18-2022 12:06-0400 Respiratory rate 18 /min [facility] 01-18-2022 12:06-0400 SaO2% (BldA) [Mass fraction] 97 % [facility] 01-18-2022 12:06-0400 Systolic blood pressure 142 mm[Hg] [facility] 01-16-2022 18:35-0400 Body mass index (BMI) [Ratio] 30.4 kg/m2 [facility] 01-16-2022 18:35-0400 Body weight 88.[address] [facility] 01-16-2022 10:27-0400 Body temperature 97 [degF] [facility] 01-16-2022 10:27-0400 Diastolic blood pressure 98 mm[Hg] [facility] 01-16-2022 10:27-0400 Heart rate 51 /min [facility] 01-16-2022 10:27-0400 Respiratory rate 18 /min [facility] 01-16-2022 10:27-0400 SaO2% (BldA) [Mass fraction] 98 % [facility] 01-16-2022 10:27-0400 Systolic blood pressure 142 mm[Hg] [facility] 01-16-2022 06:54-0400 Body height 170.[address] [facility] Work Phone: 01-16-2022 06:54-0400 Body mass index (BMI) [Ratio] 30.6 kg/m2 [facility] 01-16-2022 06:54-0400 Body weight 88.[address] [facility] 12-19-2021 13:58-0400 Body temperature 97.2 [degF] [facility] 12-19-2021 13:58-0400 Diastolic blood pressure 82 mm[Hg] [facility] 12-19-2021 13:58-0400 Heart rate 76 /min [facility] 12-19-2021 13:58-0400 Respiratory rate 16 /min [facility] 12-19-2021 13:58-0400 SaO2% (BldA) [Mass fraction] 97 % [facility] 12-19-2021 13:58-0400 Systolic blood pressure 148 mm[Hg] [facility] 12-19-2021 09:10-0400 Body height 170.[address] [facility] Work Phone: 12-19-2021 09:10-0400 Body mass index (BMI) [Ratio] 29.9 kg/m2 [facility] 12-19-2021 09:10-0400 Body weight 86.[address] [facility] 12-02-2021 23:08-0400 Diastolic blood pressure 82 mm[Hg] [facility] Work Phone: 12-02-2021 23:08-0400 Heart rate 72 /min [facility] Work Phone: 12-02-2021 23:08-0400 Respiratory rate 18 /min [facility] Work Phone: 12-02-2021 23:08-0400 SaO2% (BldA) [Mass fraction] 100 % [facility] Work Phone: 12-02-2021 23:08-0400 Systolic blood pressure 136 mm[Hg] [facility] Work Phone: 12-02-2021 18:27-0400 Body height 170.[address] [facility] Work Phone: 12-02-2021 18:27-0400 Body mass index (BMI) [Ratio] 29.7 kg/m2 [facility] Work Phone: 12-02-2021 18:27-0400 Body temperature 97.9 [degF] [facility] Work Phone: 12-02-2021 18:27-0400 Body weight 86.[address] [facility] Work Phone: 08-25-2021 07:28-0400 Body mass index (BMI) [Ratio] 29.7 kg/m2 [facility] Work Phone: 08-25-2021 07:28-0400 Body temperature 98.1 [degF] [facility] Work Phone: 08-25-2021 07:28-0400 Body weight 86.[address] [facility] Work Phone: 08-25-2021 07:28-0400 Diastolic blood pressure 93 mm[Hg] [facility] Work Phone: 08-25-2021 07:28-0400 Heart rate 73 /min [facility] Work Phone: 08-25-2021 07:28-0400 Respiratory rate 14 /min [facility] Work Phone: 08-25-2021 07:28-0400 SaO2% (BldA) [Mass fraction] 99 % [facility] Work Phone: 08-25-2021 07:28-0400 Systolic blood pressure 176 mm[Hg] [facility] Work Phone: Encounters Encounter Date Encounter Type Care Provider Facility Start: 07-23-2024 End: 07-23-2024 Emergency department patient visit Dr. Davis Armstrong MD Work Phone: -Emergency Department Work Phone: Start: 05-26-2024 End: 05-26-[address] Davis Armstrong MD Work Phone: [facility] Work Phone: Start: 05-26-2024 End: 05-26-[address] Davis Armstrong MD -Laboratory, [facility] Start: 05-26-2024 End: 05-26-2024 ambulatory Davis Armstrong Facility:[facility] Start: 05-19-2024 End: 05-19-[address] Davis Armstrong MD Work Phone: [facility] Work Phone: Start: 05-19-2024 End: 05-19-[address] Davis Armstrong MD -Laboratory, [facility] Start: 05-19-2024 End: 05-19-2024 ambulatory Davis Armstrong Facility:[facility] Start: 01-14-2024 End: 01-14-2024 ambulatory Davis Armstrong Facility:[facility] Start: 09-10-2023 End: 09-10-2023 ambulatory Davis Armstrong Facility:[facility] Start: 05-08-2023 End: 05-08-2023 ambulatory [facility] Work Phone: Start: 05-08-2023 End: 05-08-2023 Patient encounter procedure [facility]-Laboratory Work Phone: Start: 01-08-2023 End: 01-08-2023 ambulatory [facility] Work Phone: Start: 01-08-2023 End: 01-08-[facility] Start: 12-27-2022 End: 12-27-2022 Emergency department patient visit [facility]-Emergency Department Work Phone: Start: 10-08-2022 End: 10-08-2022 [facility] Start: 04-08-2022 End: 04-08-2022 ambulatory [facility] Work Phone: Start: 04-08-2022 End: 04-08-2022 Patient encounter procedure [facility]-Laboratory, Specimen Start: 03-28-2022 End: 03-28-2022 ambulatory [facility] Work Phone: Start: 03-28-2022 End: 03-28-2022 Patient encounter procedure [facility]-Laboratory Start: 01-18-2022 End: 01-18-2022 Emergency department patient visit [facility]-Emergency Department Start: 01-16-2022 End: 01-18-2022 Evaluation and management of inpatient [facility]-Medical Surgical 3 Start: 01-16-2022 End: 01-16-2022 Admission to same day surgery center [facility]-Surgical Day Care Start: 01-16-2022 End: 01-16-2022 ambulatory [facility] Work Phone: Start: 12-19-2021 End: 12-19-2021 [facility] [facility] Start: 12-19-2021 End: 12-19-2021 ambulatory [facility] Work Phone: Start: 12-18-2021 End: 12-18-2021 ambulatory [facility] Work Phone: Start: 12-18-2021 End: 12-18-2021 Patient encounter procedure [facility] Start: 12-02-2021 End: 12-02-2021 [facility] Start: 10-02-2021 End: 10-02-2021 Patient encounter procedure [facility] Start: 08-25-2021 End: 08-25-2021 Emergency department patient visit [facility] Procedures Date Procedure Procedure [...] identified in Urine by Culture Urine Culture [facility] Start: 07-23-2024 [facility] Start: 07-23-2024 End: 07-23-2024 [facility] Start: 12-27-2022 [facility] Start: 12-27-2022 [facility] Start: 01-18-2022 Referral to service [facility] Start: 01-18-2022 Patient discharge [facility] Start: 01-17-2022 Incentive spirometry [facility] Start: 01-16-2022 [facility] Start: 01-16-2022 Admission procedure [facility] Start: 01-16-2022 Following clinical pathway protocol [facility] Start: 01-16-2022 Anes transurethral resection of bladder tumor ANESTH BLADDER TUMOR SURG [facility] Start: 01-16-2022 Cystourethroscopy w/dest &/rmvl tumor large CYSTOSCOPY AND TREATMENT [facility] Start: 01-16-2022 Ambulation without limitation [facility] Start: 01-16-2022 Medication education [facility] Start: 01-16-2022 Patient discharge [facility] Start: 01-16-2022 Taking patient vital signs [facility] Start: 01-16-2022 End: 01-17-2022 [facility] Start: 12-19-2021 Anes lithotrp xtrcorp shock wave w/o water bath ANESTH KIDNEY STONE DESTRUCT [facility] Start: 12-19-2021 Cysto w/insert ureteral stent CYSTOSCOPY AND TREATMENT [facility] Start: 12-19-2021 Lithotripsy xtrcorp shock wave FRAGMENTING OF KIDNEY STONE [facility] Start: 12-19-2021 Patient discharge [facility] Start: 12-19-2021 Ambulation without limitation [facility] Start: 12-19-2021 Medication education [facility] Start: 12-19-2021 Taking patient vital signs [facility] Start: 12-19-2021 [facility] Start: 08-25-2021 Simple repair scalp/neck/ax/genit/trunk 2.5cm/< RPR S/N/AX/GEN/TRNK 2.5CM/< [facility] Work Phone: Electrocardiographic procedure [facility] Work Phone: Electrocardiographic procedure [facility] Patient Education [facility] Work Phone: Patient referral [facility] Work Phone: Troponin T.cardiac [Mass/volume] in Serum or Plasma by High sensitivity method [facility] Urine culture [facility] Immunizations Immunization Date Immunization Notes Care Provider Fa chaz 08-25-2021 tetanus toxoid, redu frankie diphtheria toxoid, and acellular pertussis vaccine, adsorbed [facility] Payers Date Payer Category Payer Self-pay [id number] 2021 Medicare [id number] Unknown [employer] AID [id number] Unknown [id number] Unknown [id number] Unknown [id number] Unknown [id number] Unknown [id number] Social History Date Type Detail Facility Start: 12-02-2021 End: 12-27-2022 Tobacco smoking status NHIS Unknown if ever smoked [facility] Start: 12-18-2018 Non-smoker [facility] Start: 1950 Sex Assigned At Male [facility] Start: 12-27-2022 End: 07-23-2024 Tobacco smoking status NHIS Never smoked tobacco (finding) [facility] Start: 05-31-2024 End: 06-02-2024 Sex Male (finding) [facility] Medical Equipment Procedure Code Equipment Code Equipment Origin al Text Equipment Identifier Dates Lithotripsy, [id number] ([id number]) Polymeric uret eral stent [id number] FDA Start: 12-19-2021 Goals Date Patient Goal Desired Activity /State Functional Status Date Assessment Result Facility 01-18-2022 Functional status Activity Ability Indepe ndent [facility] Work Phone: 01-17-2022 Functional status Ambulates [facility] Work Phone: Mental Status Date Assessment Result Facility 07-23-2024 Cognitive function Level Of Cons ciousness Awake;Alert;Appropriate;Follow s Commands [facility] Work Phone: 12-27-2022 Cognitive function Level Of Cons ciousness Awake;Alert;Appropriate;Follow s Commands [facility] Work Phone: 01-18-2022 Cognitive function Voice/Name [facility] Work Phone: 01-16-2022 Cognitive function Level Of Cons ciousness Awake;Alert;Appropriate;Follow s Commands [facility] Work Phone: 12-19-2021 Cognitive function Touch/Shaking [facility] Work Phone: 12-19-2021 Cognitive function Patient Orien tation Person;Place;Time [facility] Work Phone: Radiology Diagnostic study note 07-23-2024 Note Date & Type Note Facility 07-23-2024 Radiology Diagnostic study note [facility] Imaging Services [address] [place] [address] Chest PA and Lateral MR#: [id number] Acct: [id number] Name: YANET CORRIGAN Rep #: [id number] : [id number] M 74 From: Jaguar Ontiveros MD PCP: Dr. Davis Armstrong MD Status: RE G ER Study:Chest PA and Lateral Date of Exam: 07/23/24 Exam# [id number] Ordering Dr: Osmany Evans DO PROCEDURE: CHEST PA AND LATERAL 07/23/2024 REASON FOR EXAM: COUGH TECHNIQUE: Frontal and lateral views of the chest. COMPARISON: 12/27/2022 FINDINGS: The lungs appear clear. Pulmonary vascularity appears within limits. No pleural effusion. The cardiac and mediastinal contours appear within limits. RAD/Chest PA and Lateral IMPRESSION: No evidence of acute disease. Reading Location: [facility] CC: Dr. Osmany Evans DO; Dr. Davis Armstrong MD ~ Make Up Man: Signed [facility] Evaluation note Note Date & Type Note Facility Evaluation note No assessment information availa ble [facility] Work Phone: Hospital Discharge instructions Note Date & Type Note Facility Hospital Discharge instructions Ambulatory [id number] Lead EKG [[facility]] Time Frame: 01/16/22, Location: None Selected Additional Instructions Implant Used?: No [facility] Work Phone: Reason for referral (narrative) Note Date & Type Note Facility Reason for referral (narrative) No reason for referral information available [facility] Work Phone: Chief Complaint and [...] Yes December 02, 2021 6:54pm Power of Typing Bookkeeper No November 6:54pm Advance Directive Response Recorded Date/ Time Living Will No December 12, 2021 10:17am Power of Typing Bookkeeper No November 10:17am Advance Directive Response Recorded Date/ Time Living Will No January 09 2:13pm Power of Typing Bookkeeper No January 09, 2022 2:13pm Advance Directive Response Recorded Date/ Time Living Will Yes January 18 4:22pm Power of Typing Bookkeeper No January 18, 2022 4:22pm Advance Directive Response Recorded Date/ Time Living Will Yes December 27 7:46am Power of Typing Bookkeeper No December 27, 2022 7:46am Advance Directive Response Recorded Date/ Time Living Will Yes December 27 6:46am Power of Typing Bookkeeper No December 27, 2022 6:46am Advance Directive Response Recorded Date/ Time Do you have a Healthcare Power of Typing Bookkeeper? No July 23, 2024 7:21am Summary Purpose [...] section and content) DATE CREATED AUTHOR 07/30/2024 [facility] FOR RECORDS PERTAINING TO PATIENTS WHO [...] BE BASED ON THE PRIMARY CLINICAL RECORDS. [facility]. provides no warranty or guarantee of the accuracy or completeness of information in this document.
--- NOTE | 2024-09-18 17:35 | VDLE_ITS ---
Reason For Study Reason For Study: Swelling RLE RIGHT LEFT GSV is normal. CFV is compressible, spontaneous, phasic, competent, CFV is compressible, spontaneous, phasic, competent and demonstrates normal augmentation. and demonstrates normal augmentation. FV is compressible, spontaneous, phasic, competent and demonstrates normal augmentation. POP V is compressible, spontaneous, phasic, competent and demonstrates normal augmentation. T/P Trunk is compressible. PTV is compressible. RT PerV is compressible. Lymph node noted Rt Groin measuring 0.91cm x 2.31cm. Procedure This is a venous duplex using B-mode, color flow and spectral Doppler. Exam performed portable in patient room. A preliminary report was called and/or faxed to Dr. Mota. VL/Venous Duplex US, Unilateral Interpretation Summary Deep veins of the right lower extremity are patent and compressible segmentally . There is no evidence of right lower extremity deep vein thrombosis. Valvular competence appears intact within the p roximal deep venous system on the right . The right great saphenous vein appears patent and compressible segmentally. The left common femoral vein is patent and compressible . An enlarged lymph node is noted in the right groin, measuring 0. 91 cm x 2.31 cm. Ordering Physician: Kelly Rice Referring Physician: Davis Armstrong Performed By: Soldead Paredes RDCS, RVT
[2024-09-18 17:54] VITALS: BMI 30.7
[2024-09-18] MEDS: 0.9% Normal Saline (1000mL) 1,000 ML 75 ML IV (18:39)
[2024-09-18] MEDS: 0.9% Saline Lock 10 ML Syringe IV (18:40)
[2024-09-18 21:45] VITALS: BP 102/59; PULSE 70; RESP 16; TEMP 36.6; O2SAT 97
[2024-09-18] MEDS: Cefazolin 2 GM in 0.9% Normal Saline (100mL Bag) 100 ML IV (21:48)
[2024-09-19 03:45] VITALS: BP 119/62; PULSE 67; RESP 15; TEMP 36.9; O2SAT 95
[2024-09-19] MEDS: Cefazolin 2 GM in 0.9% Normal Saline (100mL Bag) 100 ML IV ×3 (05:30→21:15)
[2024-09-19 05:52] LABS: Hematocrit 32.2 % (40-54); Hemoglobin 10.6 g/dL (13.0-16.5); Immature Granulocytes Count 0.070 X10^3/uL (0.0-0.0); Mean Corp Hgb Conc 32.9 g/dL (32-36); Mean Corpuscular Volume 93.6 fL (80-94); Mean Platelet Vol. 10.6 fl (6.2-12.0); NRBC Flagged by Analyzer 0 % (0-5); Platelet Count 211 K/mm3 (150-450); RBC Distribution Width CV 13.7 % (11.6-14.6); RBC Distribution Width SD 46.8 fl (35.1-43.9); Red Blood Count 3.44 M/mm3 (4.6-6.2); White Blood Count 13.4 K/mm3 (4.4-11.0)
[2024-09-19 06:16] LABS: Anion Gap 9 (5-15); BUN 21 mg/dL (4-19); BUN/Creat Ratio 19.3 RATIO (10-20); Calcium,Total 8.2 mg/dL (7.6-11.0); Carbon Dioxide 21.9 mmol/L (21.0-32.0); Chloride 103 mmol/L (98-108); Estimated Creatinine Clearance 66.10 ml/min (50-250); Glucose 115 mg/dL (70-99); Potassium 4.2 mmol/L (3.3-5.1)
--- NOTE | 2024-09-19 07:48 | PCM.PN.HOSP ---
Reason for Visit Reason for Visit: Diagnoses Cellulitis of right lower limb (09/18/24) Subjective Subjective Patient is a 74-year-old gentleman who presented with right knee redness and pain and swelling. He also did complain of chills. An assessment of right knee cellulitis made antibiotics admitted per protocol admitted to regular nursing floor for further management Objective Data Objective Data Vital Signs: Vital Signs Temp Pulse Resp BP Pulse Ox O2 Del Method 98.5 F 67 15 119/62 95 Room Air 09/19/24 03:45 09/19/24 03:45 09/19/24 03:45 09/19/24 03:45 09/19/24 03:45 09/19/24 03:45 Oxygen Delivery Method Room Air Weight: 89.1 kg Body Mass Index (BMI) 30.7 Intake & Output: Intake and Output for Last 24 Hours 09/17/24 09/18/24 09/19/24 23:59 23:59 23:59 Intake Total 160 / 160 110 / 110 Output Total 250 / 250 250 / 250 Balance -90 / -90 -140 / -140 Lab / Micro Data 09/19/24 05:07 09/19/24 05:07 Labs: Laboratory Results - last 24 hr 09/18/24 14:35: WBC 12.6 H, RBC 4.13 L, Hgb 12.8 L, Hct 37.6 L, MCV 91.0, MCH 31.0, MCHC 34.0, RDW Std Deviation 45.1 H, RDW Coeff of Kim 13.3, Plt Count 239, MPV 10.5, Immature Gran % (Auto) 0.500, Neut % (Auto) 86.6 H, Lymph % (Auto) 4.9 L, [place] % (Auto) 6.9, Eos % (Auto) 0.8, Baso % (Auto) 0.3, Absolute Neuts (auto) 10.9 H, Absolute Lymphs (auto) 0.61 L, Nucleated RBC % 0, Sodium 136, Potassium 4.1, Chloride 104, Carbon Dioxide 20.7 L, Anion Gap 11, BUN 16, Creatinine 0.76, Estim Creat Clear Calc 87.91, Est GFR (MDRD) Non-Af 95, BUN/Creatinine Ratio 21.6 H, Glucose 104 H, Calcium 8.6 09/18/24 21:45: POC Glucose 103 09/19/24 05:07: WBC 13.4 H, RBC 3.44 L, Hgb 10.6 L, Hct 32.2 L, MCV 93.6, MCH 30.8, MCHC 32.9, RDW Std Deviation 46.8 H, RDW Coeff of Kim 13.7, Plt Count 211, MPV 10.6, Immature Gran % (Auto) 0.500, Neut % (Auto) 82.4 H, Lymph % (Auto) 6.0 L, [place] % (Auto) 9.8, Eos % (Auto) 1.0, Baso % (Auto) 0.3, Absolute Neuts (auto) 11.1 H, Absolute Lymphs (auto) 0.80 L, Nucleated RBC % 0, Sodium 134, Potassium 4.2, Chloride 103, Carbon Dioxide 21.9, Anion Gap 9, BUN 21 H, Creatinine 1.06, Estim Creat Clear Calc 66.10, Est GFR (MDRD) Non-Af 74, BUN/Creatinine Ratio 19.3, Glucose 115 H, Calcium 8.2 09/19/24 06:21: POC Glucose 107 H Radiography Diagnostic Testing: Radiology Impression Knee X-Ray 09/18/24 14:28 IMPRESSION: Degenerative changes as above. Reading [facility] Physical Exam Narrative General: Alert, oriented, no apparent distress HEENT: Atraumatic, normocephalic Eyes: extraocular movements grossly intact Neck: Supple Respiratory: normal respiratory effort Cardiovascular: Does have bilateral lower extremity edema right greater than left, trace on left side and at least 1+ right lower extremity GI: nondistended Extremities: Moving all extremities, is able to move knee, somewhat limited by pain but seems to do better with passive range of motion with knee moving knee Skin: Right knee wrapped as he is post I&D, does have warmth and erythema that also extends on the dubon and up thigh Neuro: No overt focal neurological deficits Psych: Cooperative Assessment & Plan Assessment/Plan (1) Cellulitis of knee, right: PLAN: Plan Patient is a 74-year-old gentleman who presented with right knee redness and pain and swelling. He also did complain of chills. An assessment of right knee cellulitis made antibiotics admitted per protocol admitted to regular nursing floor for further management 1. Right knee cellulitis with abscess ? Patient underwent bedside I&D with wound packing in the ED. Cultures sent patient was started on cefazolin on admission cultures sent. Added vancomycin given patient having purulence.. Response to therapy being monitored with daily CBC with differential as well as temperature 2. Diabetes mellitus type II -patient's oral hypoglycemics held. Placed on long acting insulin, Accu-Cheks a.c. and at bedtime and covered with sliding scale insulin 3. BPH with lower urinary obstructive symptoms - Patient treated with tamsulosin 4. Essential hypertension ? Patient is on amlodipine did continue he is also on lisinopril which was held on admission with close monitoring of vitals 5. Anemia ? Secondary to chronic disorder monitoring H&H and transfuse if patient becomes symptomatic or hemoglobin falls below 7 6. Dyslipidemia ?Patient is on statin therapy, continued at home dose 7. DVT prophylaxis ? On enoxaparin Charges/Coding Visit Charges Inpatient E&M: 92151 Subs Hosp L2
[2024-09-19 08:03] VITALS: BP 105/68; PULSE 63; RESP 18; TEMP 36.4; O2SAT 94
[2024-09-19 08:06] VITALS: PULSE 60
[2024-09-19] MEDS: 0.9% Saline Lock 10 ML Syringe IV ×2 (10:03→16:04)
[2024-09-19] MEDS: Vancomycin HCl 1,250 MG in 0.9% Normal Saline (250mL Bag) 250 ML 167 MG IV (10:03)
[2024-09-19 13:40] VITALS: BP 117/63; PULSE 74; RESP 18; TEMP 36.3; O2SAT 97
[2024-09-19 13:49] VITALS: PULSE 60
--- NOTE | 2024-09-19 13:56 | PCM.RX.CS ---
Consult Antibiotic Management Pharmacy has been consulted to manage selected antibiotic: Vancomycin Type of Intervention Type of Consult: New start Suspected Infection Suspected Infection: Skin/Soft tissue Labs Labs: Sodium 134 mmol/L (133-145) 09/19/24 05:07 Potassium 4.2 mmol/L (3.3-5.1) 09/19/24 05:07 Chloride 103 mmol/L (98-108) 09/19/24 05:07 Carbon Dioxide 21.9 mmol/L (21.0-32.0) 09/19/24 05:07 Anion Gap 9 (5-15) 09/19/24 05:07 BUN 21 mg/dL (4-19) H 09/19/24 05:07 Creatinine 1.06 mg/dL (0.70-1.20) 09/19/24 05:07 Est GFR (MDRD) Non-Af 74 (>60) 09/19/24 05:07 BUN/Creatinine Ratio 19.3 RATIO (10-20) 09/19/24 05:07 Glucose 115 mg/dL (70-99) H 09/19/24 05:07 Goal Trough Goal Trough: 10-15 mcg/mL Pharmacy Plan for Drug Dosing Pharmacy Plan for Drug Dosing: NEW IV VANCOMYCIN Consulting Physician: Dr. Siddiqi Indication: SSTI Goal Trough: 10-15 SrCr: 1.06 CrCl: 66 mL/min Comments: Patient had initial dose of 1250mg IV x1 ordered and administered 09/19 @1003 Vancomycin Dose: 750mg IV Q12hr to start 09/19/24 @2200 Pending Level: 09/20/24 @2130, prior to 4th total dose per protocol Pharmacy Service will continue to monitor and adjust dosing as required.
[2024-09-19] MEDS: 0.9% Normal Saline (250mL Bag) 250 ML 15 ML IV (21:21)
[2024-09-19 21:23] VITALS: BP 112/54; PULSE 70; RESP 16; TEMP 36.8; O2SAT 96
[2024-09-19] MEDS: Vancomycin HCl 750 MG in 0.9% Normal Saline (250mL Bag) 250 ML 250 MG IV (22:52)
[2024-09-20] VITALS (11 sets, daily range): BP systolic 104–145; BP diastolic 63–77; PULSE 68–74; RESP 14–18; TEMP 36.3–37.1; O2SAT 92–97
[2024-09-20] MEDS: Cefazolin 2 GM in 0.9% Normal Saline (100mL Bag) 100 ML IV ×2 (05:28→21:06)
[2024-09-20 05:51] LABS: Hematocrit 34.6 % (40-54); Hemoglobin 11.4 g/dL (13.0-16.5); Immature Granulocytes Count 0.070 X10^3/uL (0.0-0.0); Mean Corp Hgb Conc 32.9 g/dL (32-36); Mean Corpuscular Volume 94.0 fL (80-94); Mean Platelet Vol. 10.3 fl (6.2-12.0); NRBC Flagged by Analyzer 0 % (0-5); Platelet Count 240 K/mm3 (150-450); RBC Distribution Width CV 13.3 % (11.6-14.6); RBC Distribution Width SD 46.1 fl (35.1-43.9); Red Blood Count 3.68 M/mm3 (4.6-6.2); White Blood Count 10.6 K/mm3 (4.4-11.0)
--- NOTE | 2024-09-20 07:16 | PN.HOSP_ITS ---
Reason for Visit Reason for Visit: Diagnoses Cellulitis of right lower limb (09/18/24) Subjective Subjective Patient overnight with no acute events reported per nursing staff the patient continues to have significant erythema to the right leg especially medially up the leg and increased warmth and continued induration as well as discharge from the wound. Following removal of the dressing today discussed with patient and able to continue to express significant discharge from the region of packing with wick in place. Discussed need for likely operative intervention with Case discussed with orthopedic surgery with noted intent for evaluation and possible OR needs. Duplex ultrasound also performed this morning with a wet negative read fortunately. Patient currently notes pain to the right knee primarily with the bending attempt and also with standing attempts. Rates the discomfort at 3- 5 out of 10 in severity depending on activity. Patient denies fevers, chills, nausea, emesis, abdominal pain, chest pain or dyspnea. Objective Data Objective Data Vital Signs: Vital Signs Temp Pulse Resp BP Pulse Ox O2 Del Method 97.7 F L 69 14 145/70 H 93 Room Air 09/20/24 05:27 09/20/24 05:27 09/20/24 05:27 09/20/24 05:27 09/20/24 05:27 09/20/24 05:27 Oxygen Delivery Method Room Air Weight: 196 lb 6.91 oz Body Mass Index (BMI) 30.7 Intake & Output: Intake and Output for Last 24 Hours 09/18/24 09/19/24 09/20/24 23:59 23:59 23:59 Intake Total 160 / 160 1862.5 / 1862.5 391.75 / 391.75 Output Total 250 / 250 575 / 575 750 / 750 Balance -90 / -90 1287.5 / 1287.5 -358.25 / -358.25 Lab / Micro Data 09/20/24 05:23 09/19/24 05:07 Labs: Laboratory Results - last 24 hr 09/19/24 10:56: POC Glucose 90 09/19/24 15:57: POC Glucose 123 H 09/19/24 21:14: POC Glucose 150 H 09/20/24 05:23: WBC 10.6, RBC 3.68 L, Hgb 11.4 L, Hct 34.6 L, MCV 94.0, MCH 31.0, MCHC 32.9, RDW Std Deviation 46.1 H, RDW Coeff of Kim 13.3, Plt Count 240, MPV 10.3, Immature Gran % (Auto) 0.700, Neut % (Auto) 82.2 H, Lymph % (Auto) 6.4 L, [place] % (Auto) 8.6, Eos % (Auto) 1.7, Baso % (Auto) 0.4, Absolute Neuts (auto) 8.7 H, Absolute Lymphs (auto) 0.68 L, Nucleated RBC % 0 09/20/24 06:37: POC Glucose 115 H Physical Exam Narrative Physical Examination: General: Awake, alert, oriented x 3 and cooperative, seated upright in the medical surgical bed, notes feeling improved since initial ED arrival but ongoing discomfort to the right knee, rates discomfort anywhere from 3-5 out of 10 in severity primarily related with activity attempts. Skin: Normal color, normal turgor, no icterus, no cyanosis except for significant right knee continued erythema with stranding up the medial thigh, tender to palpation, warm, significant erythema around the wounds with wick in place with purulent material continued to be able to be expressed with concern for notable undermining. HEENT: AT/NC, EOMI, PERRLA, MMM. Lungs: Mild diminished, greater bases, proper effort, no rales, ronchi or wheezing. Heart: Regular rate and rhythm; no gallop, rub audible. Abdomen: Soft, NTTP, ND, mildly hyperactive BS. Extremities: No cyanosis, no clubbing, see skin, notable edema to the vasile- wound/erythematous region of the right lower extremity. Neurological: Patient awake, alert, oriented as noted, cognitive function intact; pupils equally reactive to light and accommodation, cranial nerves grossly normal, moving all 4 extremities although limited right lower extremity movements given discomfort with attempts at knee bending, no focal deficits, strength moderately to severely globally creased Psychiatric: Affect appears fatigued, mildly uncomfortable with certain positional changes, no acute evidence of depressive or anxiety feelings. Assessment & Plan Assessment/Plan (1) Cellulitis of knee, right: PLAN: Plan The patient is a 74 y/o M w/ PMHx: Diabetes mellitus type II, HTN, HLD, BPH with obstructive pathology, Chronic normocytic anemia who presents to [facility] ED on 09/18/24 with history of right knee redness and swelling x 3 to 4 days however did note remote injury in June with trauma from a piece of wood while using a chainsaw but did not seek medical attention at that time and given ongoing prompted ED evaluation. #1. Acute right lower extremity knee abscess, cellulitis with concern for prepatellar bursitis concurrently: Admitted to medical surgical floor, initially maintained on Ancef however given purulent nature vancomycin was added 09/19/24, wound culture with prelim Staph aureus, 09/20/24 obtained wound MRSA screen with Staph aureus positive only, will continue wound RN consultation, dressing changes with weight changes as well, given severity of appearance 09/20/24 AM patient transition to n.p.o. status, Lovenox held and discussed case with orthopedic surgery with plan for likely operative intervention, will continue monitor erythema, elevate right lower extremity above heart as able, continue pain regimen as needed, in addition infectious disease consult added. #2. Chronic normocytic anemia: Admission hemoglobin 12.8, MCV 91, baseline hemoglobin has vacillated, primarily ranging 12-13, 09/20/24 hemoglobin 11.4, MCV 94, continue to trend. #3. Chronic Kidney Disease Stage I versus stage II per current GFR trending, uncertain exact staging: Admission BUN/Cr 16/0.76, GFR 95, 09/19/2024 BUN/creatinine 21/1.06, GFR 74, baseline renal function appears primarily 0.7- 0.8, repeat 09/20/2024 BMP pending, will continue to trend. #4. Diabetes mellitus type II: Hold oral home regimen, temporarily transition to n.p.o. status with readdition of ADA diet once cleared per surgery following OR, maintain on accu checks w/ ISS. Most recent hemoglobin A1c noted 05/19/2024 6.4%, will repeat upon current presentation given #1. #5. Hypertension: Continue home regimen including lisinopril, amlodipine with hold parameters as needed, PRN hydralazine. #6. Hyperlipidemia: Will continue patient on statin therapy. #7. BPH with obstructive pathology: Will continue patient on Flomax regimen. #8. Obesity: Weight loss and lifestyle changes encouraged. #9. DVT prophylaxis: Will temporally hold Lovenox given #1 with likely need for operative intervention, add back once cleared per orthopedic surgery following. Charges/Coding Visit Charges Inpatient E&M: 17170 Subs Hosp L3
[2024-09-20] MEDS: 0.9% Normal Saline (250mL Bag) 250 ML 15 ML IV (09:23)
[2024-09-20] MEDS: Vancomycin HCl 750 MG in 0.9% Normal Saline (250mL Bag) 250 ML 250 MG IV (09:23)
[2024-09-20 11:54] LABS: Anion Gap 9 (5-15); BUN 18 mg/dL (4-19); BUN/Creat Ratio 22.1 RATIO (10-20); Calcium,Total 8.5 mg/dL (7.6-11.0); Carbon Dioxide 21.8 mmol/L (21.0-32.0); Chloride 106 mmol/L (98-108); Estimated Creatinine Clearance 86.51 ml/min (50-250); Glucose 110 mg/dL (70-99); Magnesium 2.0 mg/dL (1.5-2.2); Potassium 4.7 mmol/L (3.3-5.1)
--- NOTE | 2024-09-20 13:18 | PCM.PRE.AN2 ---
ASA Classification* ASA Classification ASA Classification: 2 Assessment & Plan Anesthesia* Anesthesia Assessment Anesthesia Assessment: Discussed sedation and/or anesthesia options, risks, benefits, and alternatives with patient/parents/legal guardian/POA. Questions invited. The patient/parents/legal guardian/POA seems to understand and agrees to proceed with anesthesia plan. Reviewed the physical assessment, medical history, allergy history and patient home medications list prior to surgery/procedure/anesthetic and documented any changes. Performed airway and anesthesia risk assessments. Anesthesia Type Anesthesia Type: Spinal Anesthesia Focused Assessment* Temperature: 98.7 F Pulse Rate: 74 Blood Pressure: 129/63 Respiratory Rate: 18 Pulse Ox: 96 Airway Assessment Mouth opens: >3 cm Mallampati Score: II Labs Anesthesia Preop lab: CBC WBC 10.6 K/mm3 (4.4-11.0) 09/20/24 05:09/20/24 RBC 3.68 M/mm3 (4.6-6.2) L 09/20/24 05:09/20/24 Hgb 11.4 g/dL (13.0-16.5) L 09/20/24 05:09/20/24 Hct 34.6 % (40-54) L 09/20/24 05:09/20/24 Plt Count 240 K/mm3 (150-450) 09/20/24 05:09/20/24 CHEMISTRY Potassium 4.7 mmol/L (3.3-5.1) 09/20/24 05:09/20/24 Sodium 137 mmol/L (133-145) 09/20/24 05:09/20/24 Magnesium 2.0 mg/dL (1.5-2.2) 09/20/24 05:09/20/24 Phosphorus 2.7 mg/dL (2.7-4.5) 09/20/24 05:09/20/24 BUN 18 mg/dL (4-19) 09/20/24 05:09/20/24 Creatinine 0.81 mg/dL (0.70-1.20) 09/20/24 05:09/20/24 Glucose 110 mg/dL (70-99) H 09/20/24 05:09/20/24 POC Glucose 115 mg/dL (74-106) H 09/20/24 06:37 09/20/24 TSH 2.270 uIU/mL (0.300-4.200) 05/19/24 11:51 05/19/24 COAG Pre-Assessment Diagnosis/Proposed Procedure Planned Operative Procedure(s): I&D right knee infection. Anesthesia History Anesthesia History - card setter: Anesthesia History - card setter Hx Hospitalization No 01/09/22 14:13 Any Problems With Anesthesia No 01/09/22 14:13 Cholinesterase deficiency No 01/09/22 14:13 You/Your Family Experience No 01/09/22 14:13 fever (hyperthermia) with Relationship Recent Exposure to Contagious No 01/16/22 06:51 Disease Does patient have nerve No 01/09/22 14:13 stimulator Patient instructed to have device shut off --Does patient have Pacemaker or ICD? When Was Last Pacemaker Check QUESTION #4 FULL TEXT: You/Your Family Experience fever (hyperthermia) with Anesthesia Last Oral Intake Last Oral intake: Last Oral Intake NPO since Meds taken in AM with sips of water? Meds patient instructed to take am of surgery PONV PONV - card setter: PONV - card setter Female HX of Motion Sickness HX of N/V After Surgery Non-Smoker Duration of Surgery greater than 60 minutes Number of Risk Factors PONV Score Height & Weight Height & Weight: Anesthesia: Height & Weight Height 5 ft 7 in 09/18/24 17:54 Weight: 89.1 kg 09/18/24 17:54 Body Mass Index (BMI) 30.7 09/18/24 17:54 Respiratory Assessment Respiratory Assessment - card setter: Respiratory Tract Infection Hx - card setter Hx Respiratory Tract Infection No 01/09/22 14:13 STOP Sleep Apnea STOP Sleep Apnea - card setter: STOP Sleep Apnea - card setter Hx Hypertension Yes 09/18/24 17:54 Hx Sleep Apnea No 09/18/24 17:54 CPAP BIPAP Do you snore loudly (louder Yes 09/18/24 17:54 than talking or can be heard Do you often feel tired/ No 09/18/24 17:54 fatigued/ sleepy during daytime? Has anyone observed you stop No 09/18/24 17:54 breathing during sleep? STOP Results Positive 09/18/24 17:54 QUESTION #5 FULL TEXT : Do you snore loudly (louder than talking or can be heard through closed doors)? Tobacco Use History Tobacco Use History - card setter: Tobacco Use History - card setter Tobacco Use Smoking Status Never smoker 09/18/24 17:54 Hx Tobacco Use No 09/18/24 17:54 Years Smoking Packs Smoked per Day Smoking Cessation Date was within the last 15 years Hx Smoking Cessation Date Hx Smoking Cessation Counseling Hematologic Medial History Hematologic Hx - card setter: Hematologic Medical Hx - [place] Hx of Blood Transfusion No 09/18/24 17:54 Hx of Transfusion in last 3 No 09/18/24 17:54 Months Date of Last Transfusion (if within last 3 months) Ever experience any problems No 09/18/24 17:54 with transfusion(s)? Specify any problems Hx of Preganancy in last 3 N/A 09/18/24 17:54 Months Nurse Filling Out Transfusion EDITA 09/18/24 17:54 & Questions: Date: 09/18/24 09/18/24 17:54 Time: 18:18 09/18/24 17:54 Patient unable to answer at this time (ie. confused, unrespo /Reproduction History /Reproductive History - card setter: /Reproductive Hx- card setter Hx Now Gestational Age (in weeks): EDC: Hx Hx Para Hx Section SAB Active Medications Active Medications: Current Medications Generic Name Dose Route Start Last Admin Trade Name Freq PRN Reason Stop Dose Admin Acetaminophen 650 mg 09/18/24 17:35 09/19/24 21:21 Acetaminophen 325 Mg Tablet PO 650 mg Q6H PRN PRN Administration Pain 1-10 Or Fever >100.7 Albuterol Sulfate 2.5 mg 09/18/24 17:35 Albuterol 2.5 Mg/3 Ml Vial.Neb. INHALATION Q2H PRN PRN SOB &/OR WHEEZING Amlodipine Besylate 10 mg 09/19/24 10:00 09/20/24 08:35 Amlodipine 10 Mg Tablet PO 10 mg DAILY LEVI Administration Protocol Atorvastatin Calcium 40 mg 09/18/24 22:00 09/19/24 21:16 Atorvastatin Calcium 40 Mg Tablet PO 40 mg QHS LEVI Administration Enoxaparin Sodium 40 mg 09/19/24 10:00 09/20/24 08:35 Enoxaparin 40 Mg/0.4 Ml Syringe SC 40 mg DAILY LEVI Administration Glucagon 1 mg 09/18/24 17:35 Glucagon 1 Mg/Ml Syringe IM X1 PRN HYPOGLYCEMIA Protocol Dextrose 250 mls @ 0 mls/hr 09/18/24 17:35 Dextrose 10%-Water IV .Q0M PRN HYPOGLYCEMIA Protocol As Directed Cefazolin Sodium 2 gm/ Sodium 110 mls @ 200 mls/hr 09/18/24 22:00 09/20/24 06:24 Chloride IV Infused Q8 LEVI Infusion Sodium Chloride 250 mls @ 15 mls/hr 09/18/24 17:55 09/20/24 09:23 IV 15 mls/hr .[id number] PRN Administration Saline Flush Vancomycin IV-PHARMACY TO DOSE 500 mls @ 250 mls/hr 09/19/24 08:38 1 each/ Sodium Chloride IV PRN PRN Rx to Dose Protocol Vancomycin HCl 750 mg/ Sodium 265 mls @ 250 mls/hr 09/19/24 22:00 09/20/24 11:06 Chloride IV Infused Q12H LEVI Infusion Insulin Human Lispro 0 unit 09/18/24 22:00 09/20/24 11:40 Insulin Lispro 100 Unit/Ml Insuln.Pen SC Not Given ACHS [facility] Protocol Ketorolac Tromethamine 15 mg 09/18/24 17:35 09/19/24 16:03 Ketorolac 15 Mg/Ml Vial IV 09/23/24 17:35 15 mg Q6H PRN PRN Administration Pain Score 1-10 Lisinopril 20 mg 09/21/24 10:00 Lisinopril 20 Mg Tablet PO DAILY [facility] Protocol Melatonin 10 mg 09/18/24 17:35 Melatonin 10 Mg Tablet PO QHS PRN PRN INSOMNIA Morphine Sulfate 2 - 4 mg 09/18/24 17:35 Morphine 2 Mg/Ml Syringe IV Q3H PRN PRN Pain Score 6-10 Morphine Sulfate 2 - 4 mg 09/18/24 17:43 Morphine 4 Mg/Ml Syringe IV Q3H PRN PRN Pain Score 6-10 Ondansetron HCl 4 mg 09/18/24 17:35 Ondansetron 4 Mg/2 Ml Vial IV Q8H PRN PRN NAUSEA/VOMITING Oxycodone HCl 5 mg 09/18/24 17:35 09/19/24 11:11 Oxycodone 5 Mg Tablet PO 5 mg Q4H PRN PRN Administration Pain Score 4-10 Senna/Docusate Sodium 2 tablet 09/18/24 22:00 09/20/24 08:35 Senna/Docusate Sodium 1 Tablet PO Not Given BID LEVI Sodium Chloride 10 - 40 ml 09/18/24 17:55 09/19/24 16:04 0.9% Saline Lock 10 Ml Syringe IV 10 ml UD PRN Administration SALINE FLUSH Tamsulosin HCl 0.4 mg 09/18/24 22:00 09/19/24 21:16 Tamsulosin Hcl 0.4 Mg Capsule PO 0.4 mg QHS LEVI Administration Vancomycin Protocol 1 lab 09/20/24 20:30 Vancomycin Trough/Random Due [facility] 09/20/24 22:30 DAILY LEVI PFSH Medical History Bladder cancer Kidney stones GERD (gastroesophageal reflux disease) Hypertension Wears dentures Wears glasses Diabetes Arthritis High cholesterol Back pain Gastric reflux Non-smoker Chronic cough Hypertension Kidney stone Home Medications ?Medication ?Instructions ?Recorded ?Last Taken ?Type atorvastatin 40 mg tablet 40 mg PO QPM CHOLESTEROL 01/16/22 09/17/24 History lisinopril 20 mg tablet 20 mg PO DAILY #30 tabs 12/27/22 09/18/24 Rx amlodipine 10 mg tablet 10 mg PO DAILY 09/18/24 09/18/24 History metformin 500 mg tablet,extended 500 mg PO BID 09/18/24 09/18/24 History release 24 hr tamsulosin 0.4 mg capsule 0.4 mg PO QHS 09/18/24 09/17/24 History Allergy/AdvReac Type Severity Reaction Status Date / Time Penicillins Allergy Other Verified 09/18/24 14:10 Surgical History Hx of hernia repair Hx of cystoscopy Social History Smoking Status: Never smoker Review of Systems (Anesthesia) ROS Narrative System reviewed and no additional complaints, except as documented.
--- NOTE | 2024-09-20 13:18 | PCM.PRE.AN2 ---
ASA Classification* ASA Classification ASA Classification: 2 Assessment & Plan Anesthesia* Anesthesia Assessment Anesthesia Assessment: Discussed sedation and/or anesthesia options, risks, benefits, and alternatives with patient/parents/legal guardian/POA. Questions invited. The patient/parents/legal guardian/POA seems to understand and agrees to proceed with anesthesia plan. Reviewed the physical assessment, medical history, allergy history and patient home medications list prior to surgery/procedure/anesthetic and documented any changes. Performed airway and anesthesia risk assessments. Anesthesia Type Anesthesia Type: Spinal Anesthesia Focused Assessment* Temperature: 98.7 F Pulse Rate: 74 Blood Pressure: 129/63 Respiratory Rate: 18 Pulse Ox: 96 Airway Assessment Mouth opens: >3 cm Mallampati Score: II Labs Anesthesia Preop lab: CBC WBC 10.6 K/mm3 (4.4-11.0) 09/20/24 05:09/20/24 RBC 3.68 M/mm3 (4.6-6.2) L 09/20/24 05:09/20/24 Hgb 11.4 g/dL (13.0-16.5) L 09/20/24 05:09/20/24 Hct 34.6 % (40-54) L 09/20/24 05:09/20/24 Plt Count 240 K/mm3 (150-450) 09/20/24 05:09/20/24 CHEMISTRY Potassium 4.7 mmol/L (3.3-5.1) 09/20/24 05:09/20/24 Sodium 137 mmol/L (133-145) 09/20/24 05:09/20/24 Magnesium 2.0 mg/dL (1.5-2.2) 09/20/24 05:09/20/24 Phosphorus 2.7 mg/dL (2.7-4.5) 09/20/24 05:09/20/24 BUN 18 mg/dL (4-19) 09/20/24 05:09/20/24 Creatinine 0.81 mg/dL (0.70-1.20) 09/20/24 05:09/20/24 Glucose 110 mg/dL (70-99) H 09/20/24 05:09/20/24 POC Glucose 115 mg/dL (74-106) H 09/20/24 06:37 09/20/24 TSH 2.270 uIU/mL (0.300-4.200) 05/19/24 11:51 05/19/24 COAG Pre-Assessment Diagnosis/Proposed Procedure Planned Operative Procedure(s): I&D right knee infection. 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 When Was Last Pacemaker Check QUESTION #4 FULL TEXT: You/Your Family Experience fever (hyperthermia) with Anesthesia Last Oral Intake Last Oral intake: Last Oral Intake NPO since Meds taken in AM with sips of water? Meds patient instructed to take am of surgery PONV PONV - antique jewelry repairer: PONV - antique jewelry repairer Female HX of Motion Sickness HX of N/V After Surgery Non-Smoker Duration of Surgery greater than 60 minutes Number of Risk Factors PONV Score Height & Weight Height & Weight: Anesthesia: Height & Weight Height 5 ft 7 in 09/18/24 17:54 Weight: 89.1 kg 09/18/24 17:54 Body Mass Index (BMI) 30.7 09/18/24 17:54 Respiratory Assessment Respiratory Assessment - antique jewelry repairer: Respiratory Tract Infection Hx - antique jewelry repairer Hx Respiratory Tract Infection No 01/09/22 14:13 STOP Sleep Apnea STOP Sleep Apnea - antique jewelry repairer: STOP Sleep Apnea - antique jewelry repairer Hx Hypertension Yes 09/18/24 17:54 Hx Sleep Apnea No 09/18/24 17:54 CPAP BIPAP Do you snore loudly (louder Yes 09/18/24 17:54 than talking or can be heard Do you often feel tired/ No 09/18/24 17:54 fatigued/ sleepy during daytime? Has anyone observed you stop No 09/18/24 17:54 breathing during sleep? STOP Results Positive 09/18/24 17:54 QUESTION #5 FULL TEXT : Do you snore loudly (louder than talking or can be heard through closed doors)? 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 Specify any problems Hx of Preganancy in last 3 N/A 09/18/24 17:54 Months Nurse Filling Out Transfusion EDITA 09/18/24 17:54 & Questions: Date: 09/18/24 09/18/24 17:54 Time: 18:18 09/18/24 17:54 Patient unable to answer at this time (ie. confused, unrespo /Reproduction History /Reproductive History - antique jewelry repairer: /Reproductive Hx- antique jewelry repairer Hx Now Gestational Age (in weeks): EDC: Hx Hx Para Hx Section SAB Active Medications Active Medications: Current Medications Generic Name Dose Route Start Last Admin Trade Name Freq PRN Reason Stop Dose Admin Acetaminophen 650 mg 09/18/24 17:35 09/19/24 21:21 Acetaminophen 325 Mg Tablet PO 650 mg Q6H PRN PRN Administration Pain 1-10 Or Fever >100.7 Albuterol Sulfate 2.5 mg 09/18/24 17:35 Albuterol 2.5 Mg/3 Ml Vial.Neb. INHALATION Q2H PRN PRN SOB &/OR WHEEZING Amlodipine Besylate 10 mg 09/19/24 10:00 09/20/24 08:35 Amlodipine 10 Mg Tablet PO 10 mg DAILY LEVI Administration Protocol Atorvastatin Calcium 40 mg 09/18/24 22:00 09/19/24 21:16 Atorvastatin Calcium 40 Mg Tablet PO 40 mg QHS LEVI Administration Enoxaparin Sodium 40 mg 09/19/24 10:00 09/20/24 08:35 Enoxaparin 40 Mg/0.4 Ml Syringe SC 40 mg DAILY LEVI Administration Glucagon 1 mg 09/18/24 17:35 Glucagon 1 Mg/Ml Syringe IM X1 PRN HYPOGLYCEMIA Protocol Dextrose 250 mls @ 0 mls/hr 09/18/24 17:35 Dextrose 10%-Water IV .Q0M PRN HYPOGLYCEMIA Protocol As Directed Cefazolin Sodium 2 gm/ Sodium 110 mls @ 200 mls/hr 09/18/24 22:00 09/20/24 06:24 Chloride IV Infused Q8 LEVI Infusion Sodium Chloride 250 mls @ 15 mls/hr 09/18/24 17:55 09/20/24 09:23 IV 15 mls/hr .[id number] PRN Administration Saline Flush Vancomycin IV-PHARMACY TO DOSE 500 mls @ 250 mls/hr 09/19/24 08:38 1 each/ Sodium Chloride IV PRN PRN Rx to Dose Protocol Vancomycin HCl 750 mg/ Sodium 265 mls @ 250 mls/hr 09/19/24 22:00 09/20/24 11:06 Chloride IV Infused Q12H LEVI Infusion Insulin Human Lispro 0 unit 09/18/24 22:00 09/20/24 11:40 Insulin Lispro 100 Unit/Ml Insuln.Pen SC Not Given ACHS [facility] Protocol Ketorolac Tromethamine 15 mg 09/18/24 17:35 09/19/24 16:03 Ketorolac 15 Mg/Ml Vial IV 09/23/24 17:35 15 mg Q6H PRN PRN Administration Pain Score 1-10 Lisinopril 20 mg 09/21/24 10:00 Lisinopril 20 Mg Tablet PO DAILY [facility] Protocol Melatonin 10 mg 09/18/24 17:35 Melatonin 10 Mg Tablet PO QHS PRN PRN INSOMNIA Morphine Sulfate 2 - 4 mg 09/18/24 17:35 Morphine 2 Mg/Ml Syringe IV Q3H PRN PRN Pain Score 6-10 Morphine Sulfate 2 - 4 mg 09/18/24 17:43 Morphine 4 Mg/Ml Syringe IV Q3H PRN PRN Pain Score 6-10 Ondansetron HCl 4 mg 09/18/24 17:35 Ondansetron 4 Mg/2 Ml Vial IV Q8H PRN PRN NAUSEA/VOMITING Oxycodone HCl 5 mg 09/18/24 17:35 09/19/24 11:11 Oxycodone 5 Mg Tablet PO 5 mg Q4H PRN PRN Administration Pain Score 4-10 Senna/Docusate Sodium 2 tablet 09/18/24 22:00 09/20/24 08:35 Senna/Docusate Sodium 1 Tablet PO Not Given BID LEVI Sodium Chloride 10 - 40 ml 09/18/24 17:55 09/19/24 16:04 0.9% Saline Lock 10 Ml Syringe IV 10 ml UD PRN Administration SALINE FLUSH Tamsulosin HCl 0.4 mg 09/18/24 22:00 09/19/24 21:16 Tamsulosin Hcl 0.4 Mg Capsule PO 0.4 mg QHS LEVI Administration Vancomycin Protocol 1 lab 09/20/24 20:30 Vancomycin Trough/Random Due [facility] 09/20/24 22:30 DAILY LEVI PFSH Medical History Bladder cancer Kidney stones GERD (gastroesophageal reflux disease) Hypertension Wears dentures Wears glasses Diabetes Arthritis High cholesterol Back pain Gastric reflux Non-smoker Chronic cough Hypertension Kidney stone Home Medications ?Medication ?Instructions ?Recorded ?Last Taken ?Type atorvastatin 40 mg tablet 40 mg PO QPM CHOLESTEROL 01/16/22 09/17/24 History lisinopril 20 mg tablet 20 mg PO DAILY #30 tabs 12/27/22 09/18/24 Rx amlodipine 10 mg tablet 10 mg PO DAILY 09/18/24 09/18/24 History metformin 500 mg tablet,extended 500 mg PO BID 09/18/24 09/18/24 History release 24 hr tamsulosin 0.4 mg capsule 0.4 mg PO QHS 09/18/24 09/17/24 History Allergy/AdvReac Type Severity Reaction Status Date / Time Penicillins Allergy Other Verified 09/18/24 14:10 Surgical History Hx of hernia repair Hx of cystoscopy Social History Smoking Status: Never smoker Review of Systems (Anesthesia) ROS Narrative System reviewed and no additional complaints, except as documented.
--- NOTE | 2024-09-20 14:07 | CONS.ORTHO ---
HPI Consult Data Date of Consult: 09/20/24 HPI Narrative Reason for Consultation: Right knee/medial thigh pain and swelling HPI Narrative: YANET CORRIGAN, is a 74 M who presented to the emergency department on September 18 with what appeared to be right lower extremity cellulitis possible medial thigh abscess. Emergency department did a incision and drainage procedure and packed it with packing. He was admitted to the hospital and placed on cefazolin and vancomycin. He subsequently developed positive Staph aureus culture results. Additionally, he had drainage today so the hospitalist did a PCR analysis and was found to have staph however not positive for MRSA. Patient has initially responded with decreased redness however he has a localized area where the previous incision and drainage was done and now patient is draining purulence from the packed wound. The area is tight and painful. Patient notes minimal deep pain pain is primarily superficial over this medial knee area. Patient notes that he has had chills however no fevers or night sweats. He does feel the leg looks better than it did however the area in question is more painful.He does have a history consistent with diabetes. Patient does report that the pain began last Friday or and went on for couple days prior going to the emergency department. Additionally patient reports that he has a history of in late June or early July while chain sawing a piece of wood hit him in the leg. He reports at that time he did have an abrasion felt like there was a medial bump over his knee. He reports overall it was appearing to get better but now the area where there was a lump is the area in question. [facility] Medical History Bladder cancer Kidney stones GERD (gastroesophageal reflux disease) Hypertension Wears dentures Wears glasses Diabetes Arthritis High cholesterol Back pain Gastric reflux Non-smoker Chronic cough Hypertension Kidney stone Home Medications ?Medication ?Instructions ?Recorded ?Last Taken ?Type atorvastatin 40 mg tablet 40 mg PO QPM CHOLESTEROL 01/16/22 09/17/24 History lisinopril 20 mg tablet 20 mg PO DAILY #30 tabs 12/27/22 09/18/24 Rx amlodipine 10 mg tablet 10 mg PO DAILY 09/18/24 09/18/24 History metformin 500 mg tablet,extended 500 mg PO BID 09/18/24 09/18/24 History release 24 hr tamsulosin 0.4 mg capsule 0.4 mg PO QHS 09/18/24 09/17/24 History Allergy/AdvReac Type Severity Reaction Status Date / Time Penicillins Allergy Other Verified 09/18/24 14:10 no significant family history Surgical History Hx of hernia repair Hx of cystoscopy Social History Smoking Status: Never smoker Vital Signs Vital Signs Vital Signs: 09/19/24 21:23 09/20/24 05:27 09/20/24 08:32 Temperature 98.3 F 97.7 F L 98.7 F Temperature Source Oral Oral Temporal Pulse Rate 70 69 74 Respiratory Rate 16 14 18 Respiratory Effort Respiratory Depth Respiratory Pattern Blood Pressure 112/54 L 145/70 H 129/63 H Blood Pressure Mean 73 95 85 Blood Pressure Source Monitor Monitor Monitor Blood Pressure Position Semi-Fowlers Semi-Fowlers Semi-Fowlers Blood Pressure Location Right Arm Right Arm Right Arm Pulse Ox 96 93 96 Oxygen Delivery Method Room Air Room Air Room Air 09/20/24 11:00 09/20/24 13:21 Temperature 98.7 F Temperature Source Pulse Rate 74 Respiratory Rate 18 Respiratory Effort Normal Non-Labored Respiratory Depth Normal Respiratory Pattern Normal Blood Pressure 129/63 H Blood Pressure Mean Blood Pressure Source Blood Pressure Position Blood Pressure Location Pulse Ox 96 Oxygen Delivery Method Weight Weight: 196 lb 6.91 oz Body Mass Index (BMI) 30.7 Physical Exam Const alert, oriented x3 and no apparent distress HEENT normocephalic Eyes PERRL Neck no JVD Resp normal respiratory effort Cardio regular rate GI non-distended Extremity Extremity Narrative: Right lower extremity: Knee is painful and tight medially with nidus of pain located underneath the area of incision and drainage. There is purulent drainage from the 1 cm incision. There is redness tracking up the medial thigh. Most intense redness is localized over the proximal medial knee. Patient is able to tolerate short arc range of motion. Neuro vas intact distally. Skin Skin Narrative: Patient's right medial thigh has significant erythema most notably around the medial proximal knee at the site of a previous incision and drainage with drainage wick and purulence coming off the wound. Neuro moves all extremities Psych affect normal Medical Records Data Attestation: I reviewed the patient's medical records Lab / Micro Data Attestation: I reviewed the patient's lab results. 09/20/24 05:23 09/20/24 05:23 Labs: Laboratory Results - last 24 hr 09/19/24 15:57: POC Glucose 123 H 09/19/24 21:14: POC Glucose 150 H 09/20/24 05:23: WBC 10.6, RBC 3.68 L, Hgb 11.4 L, Hct 34.6 L, MCV 94.0, MCH 31.0, MCHC 32.9, RDW Std Deviation 46.1 H, RDW Coeff of Kim 13.3, Plt Count 240, MPV 10.3, Immature Gran % (Auto) 0.700, Neut % (Auto) 82.2 H, Lymph % (Auto) 6.4 L, [place] % (Auto) 8.6, Eos % (Auto) 1.7, Baso % (Auto) 0.4, Absolute Neuts (auto) 8.7 H, Absolute Lymphs (auto) 0.68 L, Nucleated RBC % 0, Sodium 137, Potassium 4.7, Chloride 106, Carbon Dioxide 21.8, Anion Gap 9, BUN 18, Creatinine 0.81, Estim Creat Clear Calc 86.51, Est GFR (MDRD) Non-Af 93, BUN/Creatinine Ratio 22.1 H, Glucose 110 H, Calcium 8.5, Phosphorus 2.7, Magnesium 2.0 09/20/24 06:37: POC Glucose 115 H 09/20/24 11:39: POC Glucose 119 H Micro: Microbiology 09/20/24 09:41 Wound - Open/Non-Healing Wound Skin and Soft Tissue MRSA/MSSA (PCR - Final Staphylococcus aureus 09/19/24 11:05 Wound Abcess - Leg, Right Gram Stain - Final 09/19/24 11:05 Wound Abcess - Leg, Right Wound Culture - Preliminary Staphylococcus aureus Imaging Right knee radiographs were reviewed patient has significant degenerative changes with osteoarthritis of the medial compartment however, do not appreciate any foreign bodies or fractures or bony lesions. Assessment & Plan Assessment/Plan (1) Abscess of right thigh: PLAN: Patient appears to have a right thigh abscess over the medial knee and tracking up the medial thigh. Natural history of this disease process and treatment options were discussed the patient. Patient has failed conservative measures at this time. Has been on antibiotics for 48 hours and failed to show significant treatment effect he has had increased purulent drainage from the wound. Based on this medicine service request we consider surgical intervention with irrigation debridement. At this time do not feel patient has septic arthritis however I think he would benefit from evacuation of the underlying abscess. Explained the patient that sometimes this can be a small abscess located to that area however other times to contract up the leg. I explained we will explore the wound and follow the pus to the extent that it needs to be debrided. We discussed risk and benefits of procedure which include but limited to blood loss, DVTs, PEs,. neurovascular damage. I did explain the patient there are significant vital arteries and nerves in the medial thigh Patient demonstrates an understanding we also discussed potential for repeat debridements and need for wound center as we may not close the wound postoperatively. Again patient demonstrates understanding wishes to proceed. Also explained the patient no I do not feel his knee is infected if there is concern for this we may need to aspirate his knee reviewing irrigation debridement intraoperatively in addition to what is currently planned. Patient demonstrates an understanding and is agreeable to proceed. Will proceed this afternoon.
--- NOTE | 2024-09-20 15:48 | PCM.OPRPT ---
Operative Report (Standard) Operative Information Date of Procedure: 09/20/24 Pre-Operative Diagnosis: Right medial thigh abscess Post-Operative Diagnosis: Right medial thigh abscess Surgery/Procedure Performed: Irrigation debridement right medial thigh abscess survey analyst: Yes Autopsy Pathologist: Sakina Caballero Tasks completed by certified surgical first assistant: Opening, Closing and Other (Sharp debridement and irrigation) Type of Anesthesia: Spinal RN Documented Start/Stop Times: Operation Date: 09/20/24 15:00 Case Time Into Pre-Op 09/20/24 12:43 Anesthesia Start 09/20/24 14:51 Into Room 09/20/24 14:51 Procedure Start 09/20/24 15:17 Procedure End 09/20/24 15:42 Anesthesia End 09/20/24 15:47 Out of Room 09/20/24 15:47 Procedure Start Time: 15:17 Procedure Stop Time: 15:42 Select all DRAINS/GRAFTS/IMPLANTS that apply: Drains Drain details: FEMI drain right medial thigh Special Medications: Antibiotics on floor Estimated Blood Loss: Minimal Fluids Replaced: Crystalloid Specimen collected: No Description of surgery: On the date of the procedure patient was seen and examined in consultation was performed in the preoperative area. Right lower extremity was marked. Patient was consented. Patient was taken back to the operating room where anesthesia assumed controlled C-spine airway and remained controlled throughout the remainder of the procedure. After spinal anesthetic was administered patient was placed in supine position, all bony prominences were identified well-padded and tourniquet was placed in the right upper thigh. Surgeon then scrubbed. The leg was prepped using Betadine scrub due to the open wound. Once the leg was adequately prepped and the leg was prepped surgeon and child center assistant draped the right lower extremity in standard orthopedic fashion. The leg was elevated in extension while timeout was called everyone agreed upon the side, the site, the procedure performed, patient's identity and the antibiotics given. Once the leg was elevated for period of time tourniquet was placed at 250 mmHg. The previous wound was extended proximally distally 2 cm and ellipsed around the previous incision. We carefully dissected down in the subcutaneous layer there was a area of cloudy purulent fluid. This was evacuated out. It was not significant not tracking up the thigh or distally. The fascia was intact there was no tracking into the joint. After thoroughly exploring it was debrided of subtendinous tissue fat skin and even superficial layers of fascia. Once this was completed the wound was irrigated out with 3 L of normal saline under low-pressure lavage. A 10 [place] FEMI drain was placed and sewed into place to secure it. Skin was closed with 3-0 Monocryl interrupted sutures followed by 2-0 nylon mattress sutures. Xeroform dressing was placed. Drain sponge was placed. Compressive dressing was placed intra-articularly down. Patient was awake menses transferred to PACU for recovery in stable condition. Postop plan: Antibiotics per primary service. Range of motion and weightbearing as tolerated. Will plan to pull drain in 48 hours if drainage is sufficiently decreased. Surgical Findings: Patient had underlying abscess consistent with clinical picture. Complications Complications: No Admit VTE Documentation VTE Present on Admission: No VTE Mechan Device Prophylaxis: SCD's VTE Pharm Prophylaxis ordered?: Yes
--- NOTE | 2024-09-20 15:48 | PCM.OPRPT ---
Operative Report (Standard) Operative Information Date of Procedure: 09/20/24 Pre-Operative Diagnosis: Right medial thigh abscess Post-Operative Diagnosis: Right medial thigh abscess Surgery/Procedure Performed: Irrigation debridement right medial thigh abscess staff consultant: Yes Exchange Trouble Shooter: Sakina Caballero Tasks completed by first assistant manager: Opening, Closing and Other (Sharp debridement and irrigation) Type of Anesthesia: Spinal RN Documented Start/Stop Times: Operation Date: 09/20/24 15:00 Case Time Into Pre-Op 09/20/24 12:43 Anesthesia Start 09/20/24 14:51 Into Room 09/20/24 14:51 Procedure Start 09/20/24 15:17 Procedure End 09/20/24 15:42 Anesthesia End 09/20/24 15:47 Out of Room 09/20/24 15:47 Procedure Start Time: 15:17 Procedure Stop Time: 15:42 Select all DRAINS/GRAFTS/IMPLANTS that apply: Drains Drain details: FEMI drain right medial thigh Special Medications: Antibiotics on floor Estimated Blood Loss: Minimal Fluids Replaced: Crystalloid Specimen collected: No Description of surgery: On the date of the procedure patient was seen and examined in consultation was performed in the preoperative area. Right lower extremity was marked. Patient was consented. Patient was taken back to the operating room where anesthesia assumed controlled C-spine airway and remained controlled throughout the remainder of the procedure. After spinal anesthetic was administered patient was placed in supine position, all bony prominences were identified well-padded and tourniquet was placed in the right upper thigh. Surgeon then scrubbed. The leg was prepped using Betadine scrub due to the open wound. Once the leg was adequately prepped and the leg was prepped surgeon and industrial hire sales assistant draped the right lower extremity in standard orthopedic fashion. The leg was elevated in extension while timeout was called everyone agreed upon the side, the site, the procedure performed, patient's identity and the antibiotics given. Once the leg was elevated for period of time tourniquet was placed at 250 mmHg. The previous wound was extended proximally distally 2 cm and ellipsed around the previous incision. We carefully dissected down in the subcutaneous layer there was a area of cloudy purulent fluid. This was evacuated out. It was not significant not tracking up the thigh or distally. The fascia was intact there was no tracking into the joint. After thoroughly exploring it was debrided of subtendinous tissue fat skin and even superficial layers of fascia. Once this was completed the wound was irrigated out with 3 L of normal saline under low-pressure lavage. A 10 [place] FEMI drain was placed and sewed into place to secure it. Skin was closed with 3-0 Monocryl interrupted sutures followed by 2-0 nylon mattress sutures. Xeroform dressing was placed. Drain sponge was placed. Compressive dressing was placed intra-articularly down. Patient was awake menses transferred to PACU for recovery in stable condition. Postop plan: Antibiotics per primary service. Range of motion and weightbearing as tolerated. Will plan to pull drain in 48 hours if drainage is sufficiently decreased. Surgical Findings: Patient had underlying abscess consistent with clinical picture. Complications Complications: No Admit VTE Documentation VTE Present on Admission: No VTE Mechan Device Prophylaxis: SCD's VTE Pharm Prophylaxis ordered?: Yes
--- NOTE | 2024-09-20 15:51 | PCM.CONS.GEN ---
Assessment & Plan Assessment/Plan (1) Abscess of right thigh: PLAN: Wound cx pcr (+) MSSA. Going to OR today for I&D. Cont vanc/cefazolin for now. Will follow, thank you HPI Consult Data Date of Consult: 09/20/24 HPI Narrative Reason for Consultation: abscess HPI Narrative: YANET CORRIGAN, is a 74 M who had trauma to R thigh while using chainsaw in late June/early July. Thinks a piece of wood hit his leg. Leg healed, did fine until about 10 days ago with acute onset progressive R thigh pain, redness, swelling, and purulent drainage. No fever or chills, no recent abx. Came to ED, admitted on vanc/cefazolin. Being taken to OR today for I&D. Full ROS performed and neg except as noted above. [facility] Medical History Bladder cancer Kidney stones GERD (gastroesophageal reflux disease) Hypertension Wears dentures Wears glasses Diabetes Arthritis High cholesterol Back pain Gastric reflux Non-smoker Chronic cough Hypertension Kidney stone Home Medications ?Medication ?Instructions ?Recorded ?Last Taken ?Type atorvastatin 40 mg tablet 40 mg PO QPM CHOLESTEROL 01/16/22 09/17/24 History lisinopril 20 mg tablet 20 mg PO DAILY #30 tabs 12/27/22 09/18/24 Rx amlodipine 10 mg tablet 10 mg PO DAILY 09/18/24 09/18/24 History metformin 500 mg tablet,extended 500 mg PO BID 09/18/24 09/18/24 History release 24 hr tamsulosin 0.4 mg capsule 0.4 mg PO QHS 09/18/24 09/17/24 History Allergy/AdvReac Type Severity Reaction Status Date / Time Penicillins Allergy Other Verified 09/18/24 14:10 Family History no significant family his Surgical History Hx of hernia repair Hx of cystoscopy Social History Smoking Status: Never smoker Physical Exam Const alert, oriented x3 and no apparent distress General Appearance: cooperative HEENT normocephalic and head/scalp atraumatic Eyes PERRL and EOMs intact bilaterally Neck supple and No nodes Resp normal air movement and clear to auscultation bilaterally Cardio regular rate and regular rhythm GI soft to palpation, non-tender and non-distended Extremity General Extremity: edema Skin Skin Narrative: R thigh redness, swelling, warmth, tenderness Neuro CN's II-XII intact bilaterally Lab / Micro Data Attestation: I reviewed the patient's lab results. 09/20/24 05:23 09/20/24 05:23 Labs: Laboratory Results - last 24 hr 09/19/24 15:57: POC Glucose 123 H 09/19/24 21:14: POC Glucose 150 H 09/20/24 05:23: WBC 10.6, RBC 3.68 L, Hgb 11.4 L, Hct 34.6 L, MCV 94.0, MCH 31.0, MCHC 32.9, RDW Std Deviation 46.1 H, RDW Coeff of Kim 13.3, Plt Count 240, MPV 10.3, Immature Gran % (Auto) 0.700, Neut % (Auto) 82.2 H, Lymph % (Auto) 6.4 L, [place] % (Auto) 8.6, Eos % (Auto) 1.7, Baso % (Auto) 0.4, Absolute Neuts (auto) 8.7 H, Absolute Lymphs (auto) 0.68 L, Nucleated RBC % 0, Sodium 137, Potassium 4.7, Chloride 106, Carbon Dioxide 21.8, Anion Gap 9, BUN 18, Creatinine 0.81, Estim Creat Clear Calc 86.51, Est GFR (MDRD) Non-Af 93, BUN/Creatinine Ratio 22.1 H, Glucose 110 H, Hemoglobin A1c 6.1 H, Calcium 8.5, Phosphorus 2.7, Magnesium 2.0 09/20/24 06:37: POC Glucose 115 H 09/20/24 11:39: POC Glucose 119 H Micro: Microbiology 09/20/24 09:41 Wound - Open/Non-Healing Wound Skin and Soft Tissue MRSA/MSSA (PCR - Final Staphylococcus aureus 09/19/24 11:05 Wound Abcess - Leg, Right Gram Stain - Final 09/19/24 11:05 Wound Abcess - Leg, Right Wound Culture - Preliminary Staphylococcus aureus
--- NOTE | 2024-09-20 15:59 | CASEMGMT ---
DARWIN CM attempted to do assessment three times, pt off the floor.
--- NOTE | 2024-09-20 15:59 | CASEMGMT ---
DARWIN CM attempted to do assessment three times, pt off the floor.
--- NOTE | 2024-09-20 16:00 | PCM.POST.ANE ---
Anesthesia: Postop Eval I Current Vital Signs Temperature: 98.7 F Pulse Rate: 74 Blood Pressure: 129/63 Respiratory Rate: 16 Pulse Ox: 96 Oxygen Delivery Method: Room Air Assessment Airway patent: Yes Spontaneous unlabored respirations: Yes Mental status: Awake and Calm nausea: No Vomiting: No Anesthesia Complication: No Fluid Hydration Crystalloid volume administer (ml): 500 Total IV fluid infused: 500 Progress Note Anesthesia document: Postop Eval 1 completed: Yes
[2024-09-20 21:22] LABS: Vancomycin, Trough Level 5.7 ug/mL (5.0-15.0)
--- NOTE | 2024-09-20 21:49 | PCM.RX.CS ---
Consult Antibiotic Management Pharmacy has been consulted to manage selected antibiotic: Vancomycin Type of Intervention Type of Consult: Follow-up Suspected Infection Suspected Infection: Skin/Soft tissue Labs Labs: Sodium 137 mmol/L (133-145) 09/20/24 05:23 Potassium 4.7 mmol/L (3.3-5.1) 09/20/24 05:23 Chloride 106 mmol/L (98-108) 09/20/24 05:23 Carbon Dioxide 21.8 mmol/L (21.0-32.0) 09/20/24 05:23 Anion Gap 9 (5-15) 09/20/24 05:23 BUN 18 mg/dL (4-19) 09/20/24 05:23 Creatinine 0.81 mg/dL (0.70-1.20) 09/20/24 05:23 Est GFR (MDRD) Non-Af 93 (>60) 09/20/24 05:23 BUN/Creatinine Ratio 22.1 RATIO (10-20) H 09/20/24 05:23 Glucose 110 mg/dL (70-99) H 09/20/24 05:23 Vancomycin Trough 5.7 ug/mL (5.0-15.0) 09/20/24 20:54 Microbiology Microbiology: Microbiology 09/20/24 09:41 Wound - Open/Non-Healing Wound Skin and Soft Tissue MRSA/MSSA (PCR - Final Staphylococcus aureus 09/19/24 11:05 Wound Abcess - Leg, Right Gram Stain - Final 09/19/24 11:05 Wound Abcess - Leg, Right Wound Culture - Preliminary Staphylococcus aureus Dosing Weight Weight used for dosin kg Estimated Creatinine Clearance Estimated Creatinine Clearance: 87 Goal Trough Goal Trough: 10-15 mcg/mL Pharmacy Plan for Drug Dosing Pharmacy Plan for Drug Dosing: Vancomycin trough level of 5.7, drawn 11.5hrs post-dose, was below the target range of 10-15. Will increase dose to 1500mg q12h and will draw another trough level prior to the fourth dose of the new regimen. Pharmacy Service will continue to monitor and adjust dosing as required. Follow-Up Labs Follow-Up Labs: Trough: Vancomycin Date/Time Labs Ordered Labs to be done on [date and time ordered]: 09/22/24 @6102
[2024-09-20] MEDS: Vancomycin HCl 1,500 MG in 0.9% Normal Saline (500mL Bag) 500 ML 250 MG IV (22:16)
[2024-09-21 00:34] VITALS: BP 101/67; PULSE 65; RESP 15; TEMP 36.4; O2SAT 93
[2024-09-21 04:34] VITALS: BP 107/71; PULSE 63; RESP 16; TEMP 36.6; O2SAT 97
[2024-09-21] MEDS: Cefazolin 2 GM in 0.9% Normal Saline (100mL Bag) 100 ML IV ×3 (06:08→20:53)
[2024-09-21 06:33] LABS: Hematocrit 33.0 % (40-54); Hemoglobin 11.2 g/dL (13.0-16.5); Immature Granulocytes Count 0.060 X10^3/uL (0.0-0.0); Mean Corp Hgb Conc 33.9 g/dL (32-36); Mean Corpuscular Volume 92.2 fL (80-94); Mean Platelet Vol. 10.3 fl (6.2-12.0); NRBC Flagged by Analyzer 0 % (0-5); POSITIVE DIFFERENTIAL YES; Platelet Count 278 K/mm3 (150-450); RBC Distribution Width CV 13.1 % (11.6-14.6); RBC Distribution Width SD 43.8 fl (35.1-43.9); Red Blood Count 3.58 M/mm3 (4.6-6.2); White Blood Count 11.1 K/mm3 (4.4-11.0)
--- NOTE | 2024-09-21 06:57 | PCM.PN.HOSP ---
Reason for Visit Reason for Visit: Diagnoses Cutaneous abscess of right lower limb (09/18/24) Cellulitis of right lower limb (09/18/24) Subjective Subjective Patient with no acute events overnight per self and per nursing report. He notes that his right leg is feeling improved since OR the day prior. He does have a FEMI drain in and has serosanguineous fluid in it and notes that it was recently emptied by staff. He denies any further purulent discharge. He notes he is able to bend his leg more and has ambulated but not marked however the pain is less. He notes more aching sensation and rates it 2-3 out of 10 in severity. Patient denies fevers, chills, nausea, emesis, abdominal pain, chest pain or dyspnea. Objective Data Objective Data Vital Signs: Vital Signs Temp Pulse Resp BP Pulse Ox O2 Del Method 97.8 F 63 16 107/71 97 Room Air 09/21/24 04:34 09/21/24 04:34 09/21/24 04:34 09/21/24 04:34 09/21/24 04:34 09/21/24 04:34 Oxygen Delivery Method Room Air Weight: 196 lb 6.91 oz Body Mass Index (BMI) 30.7 Intake & Output: Intake and Output for Last 24 Hours 09/19/24 09/20/24 09/21/24 23:59 23:59 23:59 Intake Total 1862.5 / 1862.5 1626.75 / 1626.75 870.5 / 870.5 Output Total 575 / 575 1955 / 1955 300 / 300 Balance 1287.5 / 1287.5 -328.25 / -328.25 570.5 / 570.5 Lab / Micro Data 09/21/24 06:04 09/21/24 06:04 Labs: Laboratory Results - last 24 hr 09/20/24 05:23: Sodium 137, Potassium 4.7, Chloride 106, Carbon Dioxide 21.8, Anion Gap 9, BUN 18, Creatinine 0.81, Estim Creat Clear Calc 86.51, Est GFR (MDRD) Non-Af 93, BUN/Creatinine Ratio 22.1 H, Glucose 110 H, Hemoglobin A1c 6.1 H, Calcium 8.5, Phosphorus 2.7, Magnesium 2.0 09/20/24 11:39: POC Glucose 119 H 09/20/24 16:46: POC Glucose 100 09/20/24 20:54: Vancomycin Trough 5.7 09/20/24 22:05: POC Glucose 167 H 09/21/24 06:04: WBC 11.1 H, RBC 3.58 L, Hgb 11.2 L, Hct 33.0 L, MCV 92.2, MCH 31.3, MCHC 33.9, RDW Std Deviation 43.8, RDW Coeff of Kim 13.1, Plt Count 278, MPV 10.3, Immature Gran % (Auto) 0.500, Neut % (Auto) 91.4 H, Lymph % (Auto) 3.9 L, [place] % (Auto) 4.1, Eos % (Auto) 0.0, Baso % (Auto) 0.1, Absolute Neuts (auto) 10.1 H, Absolute Lymphs (auto) 0.43 L, Nucleated RBC % 0 09/21/24 06:06: POC Glucose 155 H Micro: Microbiology 09/20/24 09:41 Wound - Open/Non-Healing Wound Skin and Soft Tissue MRSA/MSSA (PCR - Final Staphylococcus aureus 09/19/24 11:05 Wound Abcess - Leg, Right Gram Stain - Final 09/19/24 11:05 Wound Abcess - Leg, Right Wound Culture - Preliminary Staphylococcus aureus Radiography Diagnostic Testing: Radiology Impression Venous Doppler Study 09/18/24 17:35 Interpretation Summary Deep veins of the right lower extremity are patent and compressible segmentally. There is no evidence of right lower extremity deep vein thrombosis. Valvular competence appears intact within the proximal deep venous system on the right . The right great saphenous vein appears patent and compressible segmentally. The left common femoral vein is patent and compressible . An enlarged lymph node is noted in the right groin, measuring 0.91 cm x 2.31 cm. Ordering Physician: Kelly Rice Referring Physician: Davis Armstrong Performed By: Soledad Paredes, RDCS, RVT Physical Exam Narrative Physical Examination: General: Awake, alert, oriented x 3 and cooperative, seated upright in the medical surgical bed, notes right knee discomfort significantly improved since OR the evening prior. Skin: Normal color, normal turgor, no icterus, no cyanosis except for postoperative dressing in place with FEMI with serosanguineous drainage, not significant amount but recently emptied per patient report. HEENT: AT/NC, EOMI, PERRLA, MMM. Lungs: Mild diminished, greater bases, proper effort, no rales, ronchi or wheezing. Heart: Regular rate and rhythm; no gallop, rub audible. Abdomen: Soft, NTTP, ND, mildly hyperactive BS. Extremities: No cyanosis, no clubbing, see skin, right lower extremity edema is lessening, see skin. Neurological: Patient awake, alert, oriented as noted, cognitive function intact; pupils equally reactive to light and accommodation, cranial nerves grossly normal, moving all 4 extremities although limited right lower extremity movements given discomfort with attempts at knee bending, no focal deficits, strength improved, moderately globally decreased. Psychiatric: Affect appears more interactive, more comfortable, no acute evidence of depressive or anxiety feelings. Assessment & Plan Assessment/Plan (1) Cellulitis of knee, right: PLAN: Plan The patient is a 74 y/o M w/ PMHx: Diabetes mellitus type II, HTN, HLD, BPH with obstructive pathology, Chronic normocytic anemia who presents to [facility] ED on 09/18/24 with history of right knee redness and swelling x 3 to 4 days however did note remote injury in June with trauma from a piece of wood while using a chainsaw but did not seek medical attention at that time and given ongoing prompted ED evaluation. #1. Acute right lower extremity medial thigh MSSA abscess, cellulitis: Admitted to medical surgical floor, initially maintained on Ancef however given purulent nature vancomycin was added 09/19/24, wound culture with prelim Staph aureus, 09/20/24 obtained wound MRSA screen with Staph aureus positive only, will continue wound RN consultation, 09/21/2024 hospitalist reevaluation with concern for worsening appearance with orthopedic surgery consultation with Dr. Rodriguez with transition to OR status post 09/20/2024 I&D right medial thigh abscess with pending OR wound cultures. Will continue monitor erythema, elevate right lower extremity above heart as able, continue pain regimen as needed. Infectious disease consulted with agreement for continued Vanco and Ancef with alteration of antibiotic therapy once OR cultures resulted. #2. Chronic normocytic anemia: Admission hemoglobin 12.8, MCV 91, baseline hemoglobin has vacillated, primarily ranging 12-13, 09/21/2024 hemoglobin 11.2, MCV 92.2, continue to trend. #3. Chronic Kidney Disease Stage I versus stage II per current GFR trending, uncertain exact staging: Admission BUN/Cr 16/0.76, GFR 95, 09/21/2024 BUN/creatinine 17/0.68, GFR 98, baseline renal function appears primarily 0.7-0.8, will continue to trend. #4. Diabetes mellitus type II: Hold oral home regimen, temporarily transition to n.p.o. status with readdition of ADA diet once cleared per surgery following OR, maintain on accu checks w/ ISS. Most recent hemoglobin A1c noted 05/19/2024 6.4% with repeat 09/20/2024 hemoglobin A1c 6.1%. #5. Hypertension: Continue home regimen including lisinopril, amlodipine with hold parameters as needed, PRN hydralazine. #6. Hyperlipidemia: Will continue patient on statin therapy. #7. BPH with obstructive pathology: Will continue patient on Flomax regimen. #8. Obesity: Weight loss and lifestyle changes encouraged. #9. DVT prophylaxis: Held Lovenox 09/20/2024 for OR, will resume 09/22/2024. Charges/Coding Visit Charges Inpatient E&M: 94090 Subs Hosp L2
[2024-09-21 07:15] LABS: AST(SGOT) 19 U/L (<=37); Alanine Aminotransfer ALT/SGPT 6 U/L (<=46); Albumin, Serum 3.2 g/dL (3.4-4.8); Alkaline Phosphatase 72 U/L (40-129); Anion Gap 9 (5-15); BUN 17 mg/dL (4-19); BUN/Creat Ratio 24.3 RATIO (10-20); Calcium,Total 8.5 mg/dL (7.6-11.0); Carbon Dioxide 22.1 mmol/L (21.0-32.0); Chloride 106 mmol/L (98-108); Estimated Creatinine Clearance 87.59 ml/min (50-250); Globulin 2.9 g/dL (2.2-4.2); Glucose 140 mg/dL (70-99); Potassium 4.5 mmol/L (3.3-5.1)
[2024-09-21 08:30] VITALS: BP 123/71; PULSE 63; RESP 16; TEMP 36.4; O2SAT 95
--- NOTE | 2024-09-21 10:37 | PCM.PN.ID ---
Physical Exam Narrative Feeling better, pain improved, no fever, no n/v/d. Const alert and no apparent distress General Appearance: cooperative Resp normal air movement and clear to auscultation bilaterally Cardio regular rate and regular rhythm GI soft to palpation, non-tender and non-distended Skin Skin Narrative: RLE wrapped, less red ID ID: Route of nutrition/ use of supplements: [] Nutritional Intake: [] IV Site: [] Thurston Catheter: [] Assessment & Plan Assessment/Plan (1) Abscess of right thigh: PLAN: Wound cx (+) MSSA. Taken to OR 09/20/[address] Rodriguez for I&D, no deeper joint/bone involvement seen. Will stop vanc, cont cefazolin. Plan on po abx at discharge. Will follow
--- NOTE | 2024-09-21 12:03 | PN.ORTHO_ITS ---
Subjective Subjective Patient is lying comfortably in bed. Patient states that his pain is well- controlled at this time. Patient states that he does notice some [id number] like feeling over his knee. Patient denies any nausea, vomiting, dizziness. Patient denies any fevers, chills, signs of infection. Patient denies any shortness of breath, chest pain, calf pain. Patient denies any adverse effects overnight. Objective Data Objective Data Vital Signs: Vital Signs Temp Pulse Resp BP Pulse Ox O2 Del Method 97.5 F L 63 16 123/71 H 95 Room Air 09/21/24 08:30 09/21/24 08:30 09/21/24 08:30 09/21/24 08:30 09/21/24 08:30 09/21/24 10:15 Oxygen Delivery Method Room Air Weight: 89.1 kg Body Mass Index (BMI) 30.7 Intake & Output: Intake and Output for Last 24 Hours 09/19/24 09/20/24 09/21/24 23:59 23:59 23:59 Intake Total 1862.5 / 1862.5 1626.75 / 1626.75 870.5 / 870.5 Output Total 575 / 575 1955 / 1955 300 / 300 Balance 1287.5 / 1287.5 -328.25 / -328.25 570.5 / 570.5 Lab / Micro Data 09/21/24 06:04 09/21/24 06:04 Labs: Laboratory Results - last 24 hr 09/20/24 05:23: Hemoglobin A1c 6.1 H 09/20/24 11:39: POC Glucose 119 H 09/20/24 16:46: POC Glucose 100 09/20/24 20:54: Vancomycin Trough 5.7 09/20/24 22:05: POC Glucose 167 H 09/21/24 06:04: WBC 11.1 H, RBC 3.58 L, Hgb 11.2 L, Hct 33.0 L, MCV 92.2, MCH 31.3, MCHC 33.9, RDW Std Deviation 43.8, RDW Coeff of Kim 13.1, Plt Count 278, MPV 10.3, Immature Gran % (Auto) 0.500, Neut % (Auto) 91.4 H, Lymph % (Auto) 3.9 L, [place] % (Auto) 4.1, Eos % (Auto) 0.0, Baso % (Auto) 0.1, Absolute Neuts (auto) 10.1 H, Absolute Lymphs (auto) 0.43 L, Nucleated RBC % 0, Sodium 137, Potassium 4.5, Chloride 106, Carbon Dioxide 22.1, Anion Gap 9, BUN 17, Creatinine 0.68 L, Estim Creat Clear Calc 87.59, Est GFR (MDRD) Non-Af 98, BUN/Creatinine Ratio 24.3 H, Glucose 140 H, Calcium 8.5, Total Bilirubin 0.40, AST 19, ALT 6, Alkaline Phosphatase 72, Total Protein 6.0, Albumin 3.2 L, Globulin 2.9, Albumin/Globulin Ratio 1.1 09/21/24 06:06: POC Glucose 155 H 09/21/24 11:22: POC Glucose 142 H Micro: Microbiology 09/19/24 11:05 Wound Abcess - Leg, Right Gram Stain - Final 09/19/24 11:05 Wound Abcess - Leg, Right Wound Culture - Final Staphylococcus aureus 09/19/24 11:05 Wound Abcess - Leg, Right Anaerobic Culture - Preliminary Checking for anaerobes, further studies to follow. 09/20/24 09:41 Wound - Open/Non-Healing Wound Skin and Soft Tissue MRSA/MSSA (PCR - Final Staphylococcus aureus Radiography Diagnostic Testing: Radiology Impression Venous Doppler Study 09/18/24 17:35 Interpretation Summary Deep veins of the right lower extremity are patent and compressible segmentally. There is no evidence of right lower extremity deep vein thrombosis. Valvular competence appears intact within the proximal deep venous system on the right . The right great saphenous vein appears patent and compressible segmentally. The left common femoral vein is patent and compressible . An enlarged lymph node is noted in the right groin, measuring 0.91 cm x 2.31 cm. Ordering Physician: Kelly Rice Referring Physician: Davis Armstrong Performed By: Soledad Paredes, ALANNA, RVT Physical Exam Narrative Vital signs are stable and afebrile. SHERRY hose in place bilaterally. SCDs in place bilaterally. Patient is able to dorsiflex and plantarflex without pain or restriction. Sensation intact light touch. Neurovascularly intact overall. Negative Homans bilaterally. Const alert, oriented x3 and no apparent distress Assessment & Plan Assessment/Plan (1) Abscess of right thigh: PLAN: Status post irrigation and debridement right medial thigh abscess day 1. 1. DVT prophylaxis: Patient is currently taking Lovenox which primary care team states that they will resume on 09/22/2024. DVT prophylaxis will be managed by primary care team. 2. Pain medications: Patient is currently taking Tylenol and oxycodone as needed. Pain will be managed by primary care team. Patient states that his pain is adequately controlled at this time. 3. FEMI drain: Patient currently has FEMI drain at incision. We will plan to pull drain at 48 hours as long as drainage has significantly decreased. Patient was educated to keep draining clean and dry at this point. 4. Reactive leukocytosis: White blood cell count currently 11.1. Patient is currently afebrile and vitals are stable. 5. H&H: 11.2/33.0. Patient's vitals are currently stable. Hemoglobin is above the threshold of 10.0. 6. Physical therapy: Patient will be weightbearing as tolerated with full range of motion at this point. Patient will be working with outpatient physical therapy. 7. Infectious disease: Patient currently has cultures positive for MSSA. Blood cultures are still pending. Infectious disease is involved with patient who suggested stopping vancomycin while continuing the cefazolin. His plan will be to do oral antibiotics on discharge. Antibiotics will be managed by primary care team and infectious disease. 8. Incentive spirometry: Patient was encouraged to use incentive spirometer every hour that they are awake for the first week to help decrease risk of postoperative lung infection. 9. Patient will plan to follow-up for reevaluation and suture removal with our office in 2 weeks. 10. Disposition: Patient is currently being managed by hospitalist as well as infectious disease. Antibiotics, DVT prophylaxis, pain medications will be managed by primary service. We will plan to pull patient's drain around roughly 48 hours as long as drainage is significantly decreased. Will plan to follow-up with patient in 2 weeks for reevaluation of right knee and removal of sutures. Patient was encouraged to call with any questions, concerns, new problems.
[2024-09-21 12:38] VITALS: BP 125/71; PULSE 68; RESP 16; TEMP 36.6; O2SAT 97
[2024-09-21] MEDS: 0.9% Saline Lock 10 ML Syringe IV ×2 (14:16→20:53)
--- NOTE | 2024-09-21 15:52 | CASEMGMT ---
RN CM Assessment Face to Face with patient for initial transition planning/care coordination assessment. RN CM introduced self and role at [facility], pt voices understanding. Pt is A&Ox4 and is resting comfortably in bed and is calm. Care providers, pharmacy, and demographics verified. Admitting dx: Rt Knee/Leg Cellulitis. ID and ortho are consulted LACE Strata: 3 PCP: Davis Armstrong Specialists: Sugey (Uro) Preferred Pharmacy: [facility] Insurance: [facility] A/B Prescription Benefit: None. Care Management to follow LNOK: Micky (Brother), Devan (Brother) Living Arrangements: Pt lives with his brother Devan in a 2 story home with 2 steps to enter ADLs/IADLs: Pt states that he is indep at baseline Transportation: Hires drivers and denies concerns DME: Functioning BGM with sufficient supplies. BP Machine. Cane. Grab bars HHC/SNF: Denies hx Pt?s goal: Home Plan: TBD. Anticipate eventual DC home with pt's brother, possible OP PT, and to follow Rx costs. Per chart review, pt debridement completed on 09/20. Pt states that he has not been out of bed since. PT has been ordered and is pending. CM to follow for additional needs that may arise subsequently, including potential FWW needs. ID states PO ATBs at DC. Pt plans to follow up with ortho x2 weeks. Pt denies further questions or concerns at this time. Report given to 3 DARWIN OCHOA. Zuleika Bruce RN, CM
--- NOTE | 2024-09-21 15:52 | CASEMGMT ---
RN CM Assessment Face to Face with patient for initial transition planning/care coordination assessment. RN CM introduced self and role at [facility], pt voices understanding. Pt is A&Ox4 and is resting comfortably in bed and is calm. Care providers, pharmacy, and demographics verified. Admitting dx: Rt Knee/Leg Cellulitis. ID and ortho are consulted LACE Strata: 3 PCP: Davis Armstrong Specialists: Sugey (Uro) Preferred Pharmacy: [facility] Insurance: [facility] A/B Prescription Benefit: None. Care Management to follow LNOK: Micky (Brother), Devan (Brother) Living Arrangements: Pt lives with his brother Devan in a 2 story home with 2 steps to enter ADLs/IADLs: Pt states that he is indep at baseline Transportation: Hires drivers and denies concerns DME: Functioning BGM with sufficient supplies. BP Machine. Cane. Grab bars HHC/SNF: Denies hx Pt?s goal: Home Plan: TBD. Anticipate eventual DC home with pt's brother, possible OP PT, and to follow Rx costs. Per chart review, pt debridement completed on 09/20. Pt states that he has not been out of bed since. PT has been ordered and is pending. CM to follow for additional needs that may arise subsequently, including potential FWW needs. ID states PO ATBs at DC. Pt plans to follow up with ortho x2 weeks. Pt denies further questions or concerns at this time. Report given to 3 DARWIN OCHOA. Zuleika Bruce RN, CM
--- NOTE | 2024-09-21 16:11 | CHAPLAIN ---
Type of Pastoral Visit _x__ Initial Visit ___ Follow-up Visit ___ On-call Visit ___ General Patient Visit ___ Spiritual Assessment ___ Family Conference ___ Bereavement ___ Rapid Response ___ Code Blue ___ Other (describe below) Pastoral Care Referral From _x__ Patient ___ Family ___ Nurse ___ Physician ___ Chemical Operations Specialist ___ Central Scheduler ___ Other (describe below) Sacrament/Intervention _x__ Active listening ___ Anointing ___ Faith ___ Bereavement ___ Communion ___ Nova exploration ___ _x__ Life review _x__ Prayer ___ Reconciliation ___ Sacrament of Sick _x__ Supportive presence ___ Wedding ___ Other (describe below) Pastoral Comments patient is polite and answers all questions appropriately; pt states that he is content with the situation and how it is being handled; pt speaks of taking each day as it comes and not worrying about it; pt welcomed a prayer
[2024-09-21 17:05] VITALS: BP 130/67; PULSE 68; RESP 16; TEMP 36.4; O2SAT 98
[2024-09-21 20:26] VITALS: BP 130/77; PULSE 59; RESP 16; TEMP 36.4; O2SAT 96
[2024-09-22] MEDS: Cefazolin 2 GM in 0.9% Normal Saline (100mL Bag) 100 ML IV (05:18)
[2024-09-22] MEDS: 0.9% Saline Lock 10 ML Syringe IV (05:18)
[2024-09-22 05:26] VITALS: BP 134/85; PULSE 59; RESP 16; TEMP 36.6; O2SAT 95
[2024-09-22 06:39] LABS: Hematocrit 34.3 % (40-54); Hemoglobin 11.5 g/dL (13.0-16.5); Immature Granulocytes Count 0.070 X10^3/uL (0.0-0.0); Mean Corp Hgb Conc 33.5 g/dL (32-36); Mean Corpuscular Volume 92.0 fL (80-94); Mean Platelet Vol. 10.1 fl (6.2-12.0); NRBC Flagged by Analyzer 0 % (0-5); Platelet Count 332 K/mm3 (150-450); RBC Distribution Width CV 13.1 % (11.6-14.6); RBC Distribution Width SD 43.8 fl (35.1-43.9); Red Blood Count 3.73 M/mm3 (4.6-6.2); White Blood Count 9.3 K/mm3 (4.4-11.0)
--- NOTE | 2024-09-22 06:49 | PN.HOSP_ITS ---
Reason for Visit Reason for Visit: Diagnoses Cutaneous abscess of right lower limb (09/18/24) Cellulitis of right lower limb (09/18/24) Subjective Subjective Patient with no acute events overnight per self and per nursing report. FEMI drain has not been emptied since the day prior and there is minimal output in it. He notes pain is significantly proved to the right leg and is bending it with greater ease. He has been up in the room walking. He is eager for discharge. Patient denies fevers, chills, nausea, emesis, abdominal pain, chest pain or dyspnea. Objective Data Objective Data Vital Signs: Vital Signs Temp Pulse Resp BP Pulse Ox O2 Del Method 97.9 F 59 L 16 134/85 H 95 Room Air 09/22/24 05:26 09/22/24 05:26 09/22/24 05:26 09/22/24 05:26 09/22/24 05:26 09/22/24 05:26 Oxygen Delivery Method Room Air Weight: 196 lb 6.91 oz Body Mass Index (BMI) 30.7 Intake & Output: Intake and Output for Last 24 Hours 09/20/24 09/21/24 09/22/24 23:59 23:59 23:59 Intake Total 1626.75 / 1626.75 1750.0 / 1750.0 110 / 110 Output Total 1955 / 1955 1102 / 1102 875 / 875 Balance -328.25 / -328.25 648.0 / 648.0 -765 / -765 Lab / Micro Data 09/22/24 06:20 09/22/24 06:20 Labs: Laboratory Results - last 24 hr 09/21/24 06:04: Sodium 137, Potassium 4.5, Chloride 106, Carbon Dioxide 22.1, Anion Gap 9, BUN 17, Creatinine 0.68 L, Estim Creat Clear Calc 87.59, Est GFR (MDRD) Non-Af 98, BUN/Creatinine Ratio 24.3 H, Glucose 140 H, Calcium 8.5, Total Bilirubin 0.40, AST 19, ALT 6, Alkaline Phosphatase 72, Total Protein 6.0, A lbumin 3.2 L, Globulin 2.9, Albumin/Globulin Ratio 1.1 09/21/24 11:22: POC Glucose 142 H 09/21/24 16:39: POC Glucose 136 H 09/21/24 20:14: POC Glucose 132 H 09/22/24 06:20: WBC 9.3, RBC 3.73 L, Hgb 11.5 L, Hct 34.3 L, MCV 92.0, MCH 30.8, MCHC 33.5, RDW Std Deviation 43.8, RDW Coeff of Kim 13.1, Plt Count 332, MPV 10.1, Immature Gran % (Auto) 0.800, Neut % (Auto) 80.5 H, Lymph % (Auto) 10.6 L, [place] % (Auto) 6.4, Eos % (Auto) 1.1, Baso % (Auto) 0.6, Absolute Neuts (auto) 7.5, Absolute Lymphs (auto) 0.98, Nucleated RBC % 0 09/22/24 06:26: POC Glucose 106 Micro: Microbiology 09/19/24 11:05 Wound Abcess - Leg, Right Gram Stain - Final 09/19/24 11:05 Wound Abcess - Leg, Right Wound Culture - Final Staphylococcus aureus 09/19/24 11:05 Wound Abcess - Leg, Right Anaerobic Culture - Preliminary Checking for anaerobes, further studies to follow. 09/20/24 09:41 Wound - Open/Non-Healing Wound Skin and Soft Tissue MRSA/MSSA (PCR - Final Staphylococcus aureus Physical Exam Narrative Physical Examination: General: Awake, alert, oriented x 3 and cooperative, seated upright in the medical surgical bed, notes right knee continues to improve, has been up and moving and is able to bend the knee better. Skin: Normal color, normal turgor, no icterus, no cyanosis except for postoperative dressing in place with FEMI with minimal output and has not been changed since the evening prior. HEENT: AT/NC, EOMI, PERRLA, MMM. Lungs: Mild diminished, greater bases, proper effort, no rales, ronchi or wheezing. Heart: Regular rate and rhythm; no gallop, rub audible. Abdomen: Soft, NTTP, ND, mildly hyperactive BS. Extremities: No cyanosis, no clubbing, see skin, right lower extremity edema is lessening, see skin. Neurological: Patient awake, alert, oriented as noted, cognitive function intact; pupils equally reactive to light and accommodation, cranial nerves grossly normal, moving all 4 extremities although limited right lower extremity movements given discomfort with attempts at knee bending, no focal deficits, strength improved, mildly to moderately globally decreased. Psychiatric: Affect appears normal, no acute evidence of depressive or anxiety feelings. Assessment & Plan Assessment/Plan (1) Cellulitis of knee, right: (2) Abscess of right thigh: PLAN: Plan The patient is a 74 y/o M w/ PMHx: Diabetes mellitus type II, HTN, HLD, BPH with obstructive pathology, Chronic normocytic anemia who presents to the [facility] ED on 09/18/24 with history of right knee redness and swelling x 3 to 4 days however did note remote injury in June with trauma from a piece of wood while using a chainsaw but did not seek medical attention at that time and given ongoing prompted ED evaluation. #1. Acute right lower extremity medial thigh MSSA abscess, cellulitis: Admitted to medical surgical floor, initially maintained on Ancef however given purulent nature vancomycin was added 09/19/24, wound culture with prelim Staph aureus eventually again de-escalated down to Ancef per infectious disease, 09/20/24 obtained wound MRSA screen with Staph aureus positive only, 09/21/2024 hospitalist reevaluation with concern for worsening appearance with orthopedic surgery consultation with Dr. Rodriguez with transition to OR 09/20/2024 I&D right medial thigh abscess with cultures from the OR consistent with MSSA with whaley sensitivity. Infectious disease consulted and following as noted. 09/22/2024 given improved appearance clearance given per infectious disease and orthopedic surgery with plan transition to oral Keflex 500 mg 4 times daily for an additional 7 days, avoidance of any showering or water submersion, allowance of weightbearing as tolerated, dry dressing daily only with plan follow-up with orthopedic surgery in 2 weeks. #2. Chronic normocytic anemia: Admission hemoglobin 12.8, MCV 91, baseline hemoglobin has vacillated, primarily ranging 12-13, 09/22/2024 hemoglobin 11.5, MCV 92.0. #3. Chronic Kidney Disease Stage I versus stage II per current GFR trending, uncertain exact staging: Admission BUN/Cr 16/0.76, GFR 95, 09/22/2024 BUN/creatinine 21/0.8, GFR 93, baseline renal function appears primarily 0.7- 0.8. #4. Diabetes mellitus type II: Hold oral home regimen, ADA diet, maintain on accu checks w/ ISS. Most recent hemoglobin A1c noted 05/19/2024 6.4% with repeat 09/20/2024 hemoglobin A1c 6.1%. #5. Hypertension: Continue home regimen including lisinopril, amlodipine with hold parameters as needed, PRN hydralazine. #6. Hyperlipidemia: Will continue patient on statin therapy. #7. BPH with obstructive pathology: Will continue patient on Flomax regimen. #8. Obesity: Weight loss and lifestyle changes encouraged. #9. DVT prophylaxis: Lovenox. Charges/Coding Visit Charges Inpatient E&M: 31688 Subs Hosp L2
[2024-09-22 06:57] LABS: AST(SGOT) 22 U/L (<=37); Alanine Aminotransfer ALT/SGPT 7 U/L (<=46); Albumin, Serum 3.2 g/dL (3.4-4.8); Alkaline Phosphatase 67 U/L (40-129); Anion Gap 9 (5-15); BUN 21 mg/dL (4-19); BUN/Creat Ratio 26.2 RATIO (10-20); Calcium,Total 8.5 mg/dL (7.6-11.0); Carbon Dioxide 23.1 mmol/L (21.0-32.0); Chloride 107 mmol/L (98-108); Estimated Creatinine Clearance 87.59 ml/min (50-250); Globulin 3.2 g/dL (2.2-4.2); Glucose 100 mg/dL (70-99); Potassium 4.3 mmol/L (3.3-5.1)
[2024-09-22 08:21] VITALS: BP 139/82; PULSE 64; RESP 18; TEMP 37.1; O2SAT 98
[2024-09-22 10:25] VITALS: BP 141/84; PULSE 83; RESP 18; TEMP 36.6; O2SAT 96
--- NOTE | 2024-09-22 10:38 | DS.PCM_ITS ---
Providers Date of Admission: 09/18/24 Date of Discharge: 09/22/24 Primary Care Physician: Dr. Davis Armstrong MD Consultations 09/20/24 09:09 Consult: Orthopedics Routine Consulting Provider: Ever Rodriguez Reason for Consult: R knee wound, cellulitis EMERGENT Consult: No Notified: Yes Date Notified: 09/20/24 Time Notified: 09:10 Method of Notification: Verbal 09/20/24 09:14 Consult: Infectious Disease Routine Consulting Provider: William Washington Reason for Consult: Infected R knee abscess/cellulitis EMERGENT Consult: No Notified: Yes Date Notified: 09/20/24 Time Notified: 10:41 Method of Notification: Answering Service Reason For Visit: RIGHT KNEE/LEG CELLULITIS Diagnosis Discharge Diagnosis (1) Cellulitis of knee, right: Status: Acute Code(s): L03.115 - Cellulitis of right lower limb Plan: DISCHARGE DIAGNOSES: #1. Acute right lower extremity medial thigh MSSA abscess, cellulitis #2. Chronic normocytic anemia #3. Chronic Kidney Disease Stage I versus stage II per current GFR trending, uncertain exact staging #4. Diabetes mellitus type II #5. Hypertension #6. Hyperlipidemia #7. BPH with obstructive pathology #8. Obesity Medications at Discharge Home Medications atorvastatin 40 mg tablet 40 mg PO QPM CHOLESTEROL 01/16/22 lisinopril 20 mg tablet 20 mg PO DAILY #30 tabs 12/27/22 amlodipine 10 mg tablet 10 mg PO DAILY 09/18/24 metformin 500 mg tablet,extended release 24 hr 500 mg PO BID 09/18/24 tamsulosin 0.4 mg capsule 0.4 mg PO QHS 09/18/24 cephalexin 500 mg capsule 500 mg PO 4X/DAY 7 days #28 caps 09/22/24 oxycodone 5 mg tablet 5 mg PO Q4H PRN PRN Pain Score 4-10 5 days #20 tabs 09/22/24 sennosides 8.6 mg-docusate sodium 50 mg tablet (Stimulant Laxative Plus) 2 tab PO BID 5 days #20 tabs 09/22/24 Hospital Course Operations - (09/20/2024 I&D right medial thigh abscess w/ Dr. Rodriguez.) Procedures None Summary of Care Provided Minutes Spent on Discharge: 35 Hospital Course: The patient is a 74 y/o M w/ PMHx: Diabetes mellitus type II, HTN, HLD, BPH with obstructive pathology, Chronic normocytic anemia who presented to the [facility] ED on 09/18/24 with history of right knee redness and swelling x 3 to 4 days however did note remote injury in June with trauma from a piece of wood while using a chainsaw but did not seek medical attention at that time and given ongoing prompted ED evaluation. Admitted to medical surgical floor, initially maintained on Ancef however given purulent nature vancomycin was added 09/19/24, wound culture with prelim Staph aureus eventually again de-escalated down to Ancef per infectious disease, 09/20/24 obtained wound MRSA screen with Staph aureus positive only, 09/21/2024 hospitalist reevaluation with concern for worsening appearance with orthopedic surgery consultation with Dr. Rodriguez with transition to OR 09/20/2024 I&D right medial thigh abscess with cultures from the OR consistent with MSSA with whaley sensitivity. Infectious disease consulted and following as noted. 09/22/2024 given improved appearance clearance given per infectious disease and orthopedic surgery with plan transition to oral Keflex 500 mg 4 times daily for an additional 7 days, avoidance of any showering or water submersion, allowance of weightbearing as tolerated, dry dressing daily only with plan follow-up with orthopedic surgery in 2 weeks. Weight / BMI Weight Weight: 196 lb 6.91 oz Body Mass Index (BMI) 30.7 ABG / Lab / Microbiology Data 09/22/24 06:20 09/22/24 06:20 Laboratory: Laboratory Results - last 24 hr 09/21/24 11:22: POC Glucose 142 H 09/21/24 16:39: POC Glucose 136 H 09/21/24 20:14: POC Glucose 132 H 09/22/24 06:20: WBC 9.3, RBC 3.73 L, Hgb 11.5 L, Hct 34.3 L, MCV 92.0, MCH 30.8, MCHC 33.5, RDW Std Deviation 43.8, RDW Coeff of Kim 13.1, Plt Count 332, MPV 10.1, Immature Gran % (Auto) 0.800, Neut % (Auto) 80.5 H, Lymph % (Auto) 10.6 L, [place] % (Auto) 6.4, Eos % (Auto) 1.1, Baso % (Auto) 0.6, Absolute Neuts (auto) 7.5, Absolute Lymphs (auto) 0.98, Nucleated RBC % 0, Sodium 139, Potassium 4.3, Chloride 107, Carbon Dioxide 23.1, Anion Gap 9, BUN 21 H, Creatinine 0.80, Estim Creat Clear Calc 87.59, Est GFR (MDRD) Non-Af 93, BUN/Creatinine Ratio 26.2 H, G lucose 100 H, Calcium 8.5, Total Bilirubin 0.29, AST 22, ALT 7, Alkaline Phosphatase 67, Total Protein 6.3, Albumin 3.2 L, Globulin 3.2, Albumin/Globulin Ratio 1.0 09/22/24 06:26: POC Glucose 106 Microbiology: Microbiology 09/19/24 11:05 Wound Abcess - Leg, Right Gram Stain - Final 09/19/24 11:05 Wound Abcess - Leg, Right Wound Culture - Final Staphylococcus aureus 09/19/24 11:05 Wound Abcess - Leg, Right Anaerobic Culture - Final No anaerobic bacteria isolated. 09/20/24 09:41 Wound - Open/Non-Healing Wound Skin and Soft Tissue MRSA/MSSA (PCR - Final Staphylococcus aureus D/C Instructions Discharge Diet: Low fat / Low cholesterol and 1800 Calorie Control Diet May resume sexual activity in: No Restrictions Weight Bearing Status: Weight bearing as tolerated Keep extremity elevated above heart level: Operative Extremity Call your doctor if your incision/area has: Continuous Slow Oozing, Sudden Increased Bleeding, Increased Pain/ Swelling, Increased Redness, Foul Smelling Discharge and Swelling at the incision site Call your doctor if you observe: Fever of 101 or Higher, Shortness of breath, Dizziness, Swelling in the ankles, Chest pain, Increased palpitations (irregular heartbeat), Calf discomfort and Uncontrolled pain DC O2, CPAP, BIPAP Needs Home O2 Discharge instructions: No Meaningful Use Info Meaningful Use Meaningful Use Diagnoses (Choose all that apply): None applicable Ischemic Stroke Statin Dosing Therapy Reference: STATIN DOSE THERAPY REFERENCE: * Patients > 75 years receive moderate or high dose statin therapy. * Patients 75 years or YOUNGER should receive HIGH intensity statin dose unless contraindicated. You will be required to document reason for non-treatment if statin daily dose does not meet guidelines. HIGH DOSE STATIN THERAPY DAILY Atorvastatin > than or = to 40 mg Rosuvastatin > than or = to 20 mg Amlodipine + Atorvastatin > than or = to 2.5/40 mg Ezetimibe + Simvastatin 10/80 mg Simvastatin 80mg Discharge Plan Admission Admit Date/Time: 09/18/24 16:45 Primary Reason for Your Visit: Right Thigh MSSA Abscess, Cellulitis Attending Provider: Jayne Mota Primary Care Provider: Davis Armstrong Consulting Providers: Kelly Rice; Jh Siddiqi; Ever Rodriguez; William Washington Instructions Patient Instructions: Abscess Drainage, ED Abscess Incision And ... Additional Instructions / Restrictions: ADDITIONAL DISCHARGE INSTRUCTIONS/INFORMATION: --Wound cultures from the OR with noted MSSA organism which is susceptible to keflex which you will be discharged on and need to take 1 capsule 4x/daily for an additional 7 days of treatment per Infectious Disease recommendation. --Per Orthopedic surgery you may be weight bearing as tolerated to the R lower extremity. Please elevate above your heart while seated and in bed to help with swelling reduction. --Dressing changes: Dry dressing only with overlapying 4x4, ABD and JACLYN wrap daily and as needed. --Showering/bathing: Please do NOT submerge in water and do NOT shower until re- evaluation until cleared per Orthopedic surgery. You may sponge bathe sections of your skin until then. --Please also follow-up with your primary care physician outpatient as well as recommended. Discharge Orders/Prescriptions Prescriptions: New sennosides-docusate sodium [Stimulant Laxative Plus] 8.6-50 mg Tablet 2 tab PO BID 5 Days Qty: 20 0RF Rx Instructions: Hold for loose stools, may stop if not taking narcotics. oxycodone 5 mg Tablet 5 mg PO Q4H PRN PRN (Reason: Pain Score 4-10) 5 Days Qty: 20 0RF cephalexin 500 mg Capsule 500 mg PO 4X/DAY 7 Days Qty: 28 0RF Continued atorvastatin 40 mg tablet 40 mg PO QPM Patient Comments: TAKE 1 TABLET BY MOUTH EVERYDAY AT BEDTIME lisinopril 20 mg tablet 20 mg PO DAILY Qty: 30 0RF tamsulosin 0.4 mg capsule 0.4 mg PO QHS amlodipine 10 mg tablet 10 mg PO DAILY metformin 500 mg tablet extended release 24 hr 500 mg PO BID Referrals / Follow Up: Davis Armstrong MD [Primary Care Provider] - 09/28/24 11:30 am (Follow-up within 3-5 days to review admission.) Ever Rodriguez MD [Med Staff - Active Staff] - (Follow-up with Orthopedic surgeon in 2 weeks per their request. Contact the office earlier if concerns or questions arise.) Disposition Disposition (needs filled in before D/C Order can be placed): Home, Self Care Charges/Coding Visit Charges Inpatient E&M: 51695 Disch Hosp >30min
--- NOTE | 2024-09-22 10:47 | PCM.PN.ORT ---
Subjective Subjective The patient was sitting in bedside chair upon examination. Patient denies any chest pain, shortness of breath, dizziness, lightheadedness, nausea or vomiting, or calf pain. Pain is controlled on medications. No adverse overnight events. Patient worked with physical therapy today in which she walked the halls without assistance. He was also performing steps. Patient states overall area has continued to improve. Infectious disease is currently on board with management of antibiotics. Plan is for p.o. antibiotics. Objective Data Objective Data Vital Signs: Vital Signs Temp Pulse Resp BP Pulse Ox O2 Del Method 98.7 F 64 18 139/82 H 98 Room Air 09/22/24 08:21 09/22/24 08:21 09/22/24 08:21 09/22/24 08:21 09/22/24 08:21 09/22/24 08:21 Oxygen Delivery Method Room Air Weight: 89.1 kg Body Mass Index (BMI) 30.7 Intake & Output: Intake and Output for Last 24 Hours 09/20/24 09/21/24 09/22/24 23:59 23:59 23:59 Intake Total 1626.75 / 1626.75 1750.0 / 1750.0 110 / 110 Output Total 1955 / 1955 1102 / 1102 875 / 875 Balance -328.25 / -328.25 648.0 / 648.0 -765 / -765 Lab / Micro Data 09/22/24 06:20 09/22/24 06:20 Labs: Laboratory Results - last 24 hr 09/21/24 11:22: POC Glucose 142 H 09/21/24 16:39: POC Glucose 136 H 09/21/24 20:14: POC Glucose 132 H 09/22/24 06:20: WBC 9.3, RBC 3.73 L, Hgb 11.5 L, Hct 34.3 L, MCV 92.0, MCH 30.8, MCHC 33.5, RDW Std Deviation 43.8, RDW Coeff of Kim 13.1, Plt Count 332, MPV 10.1, Immature Gran % (Auto) 0.800, Neut % (Auto) 80.5 H, Lymph % (Auto) 10.6 L, [place] % (Auto) 6.4, Eos % (Auto) 1.1, Baso % (Auto) 0.6, Absolute Neuts (auto) 7.5, Absolute Lymphs (auto) 0.98, Nucleated RBC % 0, Sodium 139, Potassium 4.3, Chloride 107, Carbon Dioxide 23.1, Anion Gap 9, BUN 21 H, Creatinine 0.80, Estim Creat Clear Calc 87.59, Est GFR (MDRD) Non-Af 93, BUN/Creatinine Ratio 26.2 H, Glucose 100 H, Calcium 8.5, Total Bilirubin 0.29, AST 22, ALT 7, Alkaline Phosphatase 67, Total Protein 6.3, Albumin 3.2 L, Globulin 3.2, Albumin/Globulin Ratio 1.0 09/22/24 06:26: POC Glucose 106 Micro: Microbiology 09/19/24 11:05 Wound Abcess - Leg, Right Gram Stain - Final 09/19/24 11:05 Wound Abcess - Leg, Right Wound Culture - Final Staphylococcus aureus 09/19/24 11:05 Wound Abcess - Leg, Right Anaerobic Culture - Final No anaerobic bacteria isolated. 09/20/24 09:41 Wound - Open/Non-Healing Wound Skin and Soft Tissue MRSA/MSSA (PCR - Final Staphylococcus aureus Physical Exam Narrative Vital signs stable and afebrile. Patient is able to plantarflex and dorsiflex actively. Sensation is intact to light touch to saphenous, sural, superficial and deep peroneal, and tibial distribution. Jesus wrap currently in place with FEMI drain. FEMI drain has less than 1 cc with minimal output. Jesus wrap was removed in which incision and FEMI drain site with 2 being evaluated. No significant erythema. There is no purulence in the FEMI drain. I went ahead and remove the FEMI drain placing Steri-Strips over the small incision. I then placed a ABD over both incisions with a compressive Jesus wrap. Patient tolerated the procedure very well. After the removal of the FEMI drain there was no drainage from the incision. Negative Homans bilaterally, negative signs and symptoms of DVT. Const alert, oriented x3 and no apparent distress HEENT normocephalic Eyes PERRL Neck no JVD Resp normal respiratory effort Cardio regular rate GI non-distended Extremity Extremity Narrative: Right lower extremity: Knee is painful and tight medially with nidus of pain located underneath the area of incision and drainage. There is purulent drainage from the 1 cm incision. There is redness tracking up the medial thigh. Most intense redness is localized over the proximal medial knee. Patient is able to tolerate short arc range of motion. Neuro vas intact distally. Skin Skin Narrative: Patient's right medial thigh has significant erythema most notably around the medial proximal knee at the site of a previous incision and drainage with drainage wick and purulence coming off the wound. Neuro moves all extremities Psych affect normal Assessment & Plan Assessment/Plan (1) Abscess of right thigh: PLAN: Status post irrigation and debridement right medial thigh abscess day 2. 1. DVT prophylaxis: Patient is currently taking Lovenox which primary care team states that they will resume on 09/22/2024. DVT prophylaxis will be managed by primary care team. 2. Pain medications: Patient is currently taking Tylenol and oxycodone as needed. Pain will be managed by primary care team. Patient states that his pain is adequately controlled at this time. 3. FEMI drain: There was minimal output less than 1 cc. I did remove the FEMI drain today and place Steri-Strips over the incision. Compressive Jesus wrap with ABDs were placed. Patient tolerated the procedure well. Plan will be for patient to use compressive Jesus wrap until follow-up. I would like him to do daily dressing changes. I would also like him to keep this area clean dry and intact. Avoid submerging underwater or getting wet until follow-up. 4. Reactive leukocytosis: White blood cell count currently 11.1. Patient is currently afebrile and vitals are stable. 5. H&H: 11.5/34.3. Patient's vitals are currently stable. Hemoglobin is above the threshold of 10.0. No current need for treatment 6. Physical therapy: Patient will be weightbearing as tolerated with full range of motion at this point. Patient was able to ambulate today without assistance with therapy the bhakta and also perform steps without difficulty. Potentially consider home health for range of motion. Patient does have a cane at home if he would need to use for balance. 7. Infectious disease: Patient currently has cultures positive for MSSA. Blood cultures are still pending. Appreciate recommendations from infectious disease. Case was discussed with Dr. Mota and will be discharged on Keflex for 1 week postoperatively. 8. Incentive spirometry: Patient was encouraged to use incentive spirometer every hour that they are awake for the first week to help decrease risk of postoperative lung infection. 9. Patient will plan to follow-up for reevaluation and suture removal with our office in 2 weeks. 10. Disposition: Patient is currently being managed by hospitalist as well as infectious disease. Antibiotics, DVT prophylaxis, pain medications will be managed by primary service. Case was discussed with medicine and I am okay with discharge from orthopedic standpoint. We discussed dressings and wound care. I discussed this with the patient in great detail. He is weightbearing as tolerated and can use cane for balance. Care management team will also discuss home health therapy. I did advise the patient I would like him to get up every hour while awake to walk for a few minutes. He did voiced understanding. Medicine will take care of discharge and all medications. Patient should have a follow-up with [facility] in 2 weeks for incision check and suture removal. Patient has been instructed to contact our office with any concerns or questions upon discharge.
--- NOTE | 2024-09-22 10:51 | CASEMGMT ---
RN CM into pt room, pt sitting up in chair. Pt with family member at bedside. Pt states he did well with therapy. Discussed outpt therapy with him. Pt states that he spoke with PA for ortho and he feels he can keep moving every hour and will not need this. Pt denies any need for DME. Pt and family member feel comfortable with the dressing change, nurse to give supplies for home. Pt requests [facility] for transport home. [facility] to [facility], they are able to take pt and family member home if at main entrance at 1145. Pt nurse aware. Plan for dc home this date.
--- NOTE | 2024-09-22 10:51 | CASEMGMT ---
RN CM into pt room, pt sitting up in chair. Pt with family member at bedside. Pt states he did well with therapy. Discussed outpt therapy with him. Pt states that he spoke with PA for ortho and he feels he can keep moving every hour and will not need this. Pt denies any need for DME. Pt and family member feel comfortable with the dressing change, nurse to give supplies for home. Pt requests [facility] for transport home. TC to [facility], they are able to take pt and family member home if at main entrance at 1145. Pt nurse aware. Plan for dc home this date.
== END 2024-09-22 11:47 | disposition home or self-care (01) | DRG 580 ==
LOC: ED 16:25 → MS3 16:49
PROVIDERS: Internal Medicine; Specialist; Admitting Provider Internal Medicine; Emergency Provider Emergency Medicine; PCP Family Medicine; Visit Provider Family Medicine
PROC: 0JDL0ZZ Extraction of Right Upper Leg Subcutaneous Tissue and Fascia, Open Approach (ICD-10-PCS; principal; 2024-09-20 14:50)
DX: L02.415 Cutaneous abscess of right lower limb (principal); N13.8 Other obstructive and reflux uropathy; D63.8 Anemia in other chronic diseases classified elsewhere; E11.22 Type 2 diabetes mellitus with diabetic chronic kidney disease; E66.9 Obesity, unspecified; B95.61 Methicillin susceptible Staphylococcus aureus infection as the cause of diseases classified elsewhere; I12.9 Hypertensive chronic kidney disease with stage 1 through stage 4 chronic kidney disease, or unspecified chronic kidney disease; E78.5 Hyperlipidemia, unspecified; K21.9 Gastro-esophageal reflux disease without esophagitis; N18.2 Chronic kidney disease, stage 2 (mild); L03.115 Cellulitis of right lower limb; N40.1 Benign prostatic hyperplasia with lower urinary tract symptoms; Z85.51 Personal history of malignant neoplasm of bladder; Z79.899 Other long term (current) drug therapy; Z79.84 Long term (current) use of oral hypoglycemic drugs; Z68.30 Body mass index [BMI] 30.0-30.9, adult
CPT/HCPCS: 36415; 73564; 80048; 80053; 80202; 82962; 83036; 83735; 84100; 85025; 87040; 87070; 87075; 87077; 87186; 87205; 87640; 93971; 97161; 99285; A4216; J2405

== ENCOUNTER → 2024-11-09 | Outpatient (CLI) | payer MEDICARE, SELFPAY | END | disposition home or self-care (01) | LOC: LAB 09:06 | PROVIDERS: PCP Family Medicine; Referring Provider Urology; Visit Provider Urology | DX: Z12.5 Encounter for screening for malignant neoplasm of prostate (principal) ==

== ENCOUNTER → 2025-01-14 | Outpatient (CLI) | payer MEDICARE, SELFPAY ==
[2025-01-14 10:54] LABS: PSA,Total - Annual Screen 1.03 ng/mL (0.02-4.00)
== END | disposition home or self-care (01) ==
LOC: LAB 09:15
PROVIDERS: PCP Family Medicine; Referring Provider Urology; Visit Provider Urology
DX: Z12.5 Encounter for screening for malignant neoplasm of prostate (principal)
CPT/HCPCS: 36415; 84153; G0103